=== PATIENT | male | born 1975 | race Caucasian/White ===

== ENCOUNTER 2023-10-22 23:23 | Inpatient (IN) | payer OTHER ==
[2023-10-23] MEDS ORDERED: ONDANSETRON 4 MG/2 ML VIAL IVP PRN (00:12)
[2023-10-23] MEDS ORDERED: NALOXONE 0.4 MG/ML 1 ML VIAL IV PRN (00:12)
--- NOTE | 2023-10-23 00:12 | ED ---
General Adult HPI - General Chief complaint: Abdominal Pain Stated complaint: Acute pancreatitis Time Seen by Provider: 10/22/23 23:25 Source: patient, EMS, RN notes reviewed, old records reviewed Mode of arrival: EMS - History of Present Illness Initial comments: Patient is a 48-year-old male who presents emergency department complaining of abdominal pain. Was transferred from [facility] for acute pancreatitis. Workup there included CT abdomen/pelvis which showed signs consistent with acute pancreatitis without any obvious complications. Patient had elevated amylase and lipase. Has a history of chronic alcohol abuse. Presents for further evaluation. Last alcoholic beverage was approximately 24 hours ago. Drinks daily. Endorses epigastric abdominal pain. Presents for further evaluation at this time. - Related Data Home Medications Medication Instructions Recorded Confirmed Folic Acid 1 mg PO DAILY 10/23/23 10/23/23 Metoprolol Succinate (ER) [Toprol 100 mg PO DAILY 10/23/23 10/23/23 Xl] Pregabalin [Lyrica] 75 mg PO BID 10/23/23 10/23/23 Rosuvastatin [Crestor] 10 mg PO DAILY 10/23/23 10/23/23 Sertraline HCl [Zoloft] 50 mg PO DAILY 10/23/23 10/23/23 Sertraline [Zoloft] 100 mg PO DAILY 10/23/23 10/23/23 Verapamil HCl [Calan Sr] 240 mg PO DAILY 10/23/23 10/23/23 Allergies Allergy/AdvReac Type Severity Reaction Status Date / Time No Known Allergies Allergy Verified 10/23/23 09:23 Review of Systems ROS Statement: Those systems with pertinent positive or pertinent negative responses have been documented in the HPI. Review of Systems: CONST: Denies fever EYES: Denies blurry vision ENT: Denies nasal congestion C/V: Denies Chest pain RESP: Denies shortness of breath GI: Endorses abdominal pain : Denies dysuria SKIN: Denies rash. MSK: Denies joint pain. NEURO: Denies headache ROS Other: All systems not noted in ROS Statement are negative. Past Medical History Past Medical History: Coronary Artery Disease (CAD), Hypertension History of Any Multi-Drug Resistant Organisms: None Reported Past Psychological History: Anxiety Smoking Status: Current every day smoker Past Alcohol Use History: Abuse Past Drug Use History: None Reported General Exam - General Exam Comments Initial Comments: General: Appears in mild alcohol withdrawals with mild tongue fasciculations and mild hand tremors. HEAD: Normal with no signs of head trauma. EYES: PERRLA, EOMI, conjunctiva normal, no discharge. ENT: Hearing grossly intact, normal oropharynx. RESPIRATORY: Clear breath sounds bilaterally. No wheezes, rales, or rhonchi. C/V: Mild tachycardia with regular rhythm.. S1 and S2 auscultated, no edema, peripheral pulses 2+ and intact throughout ABD: Mild tenderness to palpation in the epigastric region. Nondistended. Soft otherwise. No guarding. No rebound tenderness. No peritoneal signs. EXT: Normal range of motion, no obvious deformity SKIN: No rashes or lesions observed on exposed skin. NEURO: Alert and oriented x 4. No focal deficits. Course Vital Signs 10/22/23 10/23/23 10/23/23 23:29 00:41 01:00 Temperature 98.3 F Pulse Rate 101 H 98 102 H Pulse Rate [ Morning Show Producer ] Respiratory 18 18 18 Rate Blood Pressure 180/128 178/126 180/136 Blood Pressure [Left Arm] O2 Sat by Pulse 97 97 96 Oximetry 10/23/23 10/23/23 10/23/23 03:00 04:06 05:30 Temperature Pulse Rate 101 H 117 H 117 H Pulse Rate [ Morning Show Producer ] Respiratory 18 18 20 Rate Blood Pressure 159/113 149/113 160/116 Blood Pressure [Left Arm] O2 Sat by Pulse 97 96 97 Oximetry 10/23/23 10/23/23 10/23/23 06:50 15:32 18:31 Temperature Pulse Rate 110 H 106 H 125 H Pulse Rate [ Morning Show Producer ] Respiratory 18 18 24 Rate Blood Pressure 164/125 166/130 161/112 Blood Pressure [Left Arm] O2 Sat by Pulse 96 98 95 Oximetry 10/23/23 10/23/23 10/23/23 18:54 19:21 19:30 Temperature Pulse Rate 123 H 135 H 136 H Pulse Rate [ Morning Show Producer ] Respiratory 24 28 H 24 Rate Blood Pressure 181/124 194/124 204/135 Blood Pressure [Left Arm] O2 Sat by Pulse 99 100 100 Oximetry 10/23/23 10/23/23 10/23/23 19:50 20:25 20:30 Temperature Pulse Rate 133 H 105 H 102 H Pulse Rate [ Morning Show Producer ] Respiratory 28 H 22 20 Rate Blood Pressure 186/168 142/99 146/106 Blood Pressure [Left Arm] O2 Sat by Pulse 99 99 99 Oximetry 10/23/23 10/23/23 10/23/23 20:45 21:00 21:15 Temperature Pulse Rate 94 94 92 Pulse Rate [ Morning Show Producer ] Respiratory 22 20 20 Rate Blood Pressure 173/122 158/117 165/116 Blood Pressure [Left Arm] O2 Sat by Pulse 100 99 100 Oximetry 10/23/23 10/23/23 21:45 22:00 Temperature 98.7 F 98.7 F Pulse Rate Pulse Rate [ 95 Morning Show Producer ] Respiratory 10 L Rate Blood Pressure Blood Pressure 192/122 [Left Arm] O2 Sat by Pulse Oximetry Medical Decision Making - Medical Decision Making Was pt. sent in by a medical professional or institution (Dr. PA, SPECIAL AGENT, urgent care, hospital, or [facility]...) When possible be specific @ -Spoke with transferring physician from [facility] for evaluation by GI for acute pancreatitis Did you speak to anyone other than the patient for history (EMS, parent, family, police, friend...)? What history was obtained from this source @ -No Did you review nursing and triage notes (agree or disagree)? Why? @ -I reviewed and agree with nursing and triage notes Were old charts reviewed (outside hosp., previous admission, EMS record, old EKG, old radiological studies, urgent care reports/EKG's, [facility] records)? Report findings @ -Old charts reviewed Differential Diagnosis (chest pain, altered mental status, abdominal pain women, abdominal pain men, vaginal bleeding, weakness, fever, dyspnea, syncope, headache, dizziness, GI bleed, back pain, seizure, CVA, palpatations, mental health, musculoskeletal)? @ -Differential Abdominal Pain Men: Appendicitis, cholecystitis, diverticulosis, ischemic bowel, pancreatitis, hepatitis, UTI, gastroenteritis, AAA, incarcerated hernia, bowel obstruction, constipation, inflammatory bowel, hepatitis, peptic ulcer disease, splenic infarction, perforated viscus, testicular torsion, this is not meant to be an all-inclusive list EKG interpreted by me (3pts min.). @ -As above X-rays interpreted by me (1pt min.). @ -None done CT interpreted by me (1pt min.). @ -None done U/S interpreted by me (1pt. min.). @ -None done What testing was considered but not performed or refused? (CT, X-rays, U/S, labs)? Why? @ -None What meds were considered but not given or refused? Why? @ -None Did you discuss the management of the patient with other professionals (professionals i.e. , PA, SPECIAL AGENT, lab, RT, psych nurse, manager social media, criminal lawyer, teacher, business liaison officer, case worker)? Give summary @ -Spoke with Dr. Han of [facility] who accepted the admission. Was smoking cessation discussed for >3mins.? @ -No Was critical care preformed (if so, how long)? @ -No Were there social determinants of health that impacted care today? How? (Homelessness, low income, unemployed, alcoholism, drug addiction, transportation, low edu. Level, literacy, decrease access to med. care, shelter, rehab)? @ -No Was there de-escalation of care discussed even if they declined (Discuss DNR or withdrawal of care, Hospice)? DNR status @ -No What co-morbidities impacted this encounter? (DM, HTN, Smoking, COPD, CAD, Cancer, CVA, ARF, Chemo, Hep., AIDS, mental health diagnosis, sleep apnea, morbid obesity)? @ -None Was patient admitted / discharged? Hospital course, mention meds given and route, prescriptions, significant lab abnormalities, going to OR and other pertinent info. @ -Based on the patient's presentation and physical exam, patient presents emergency department complaining of abdominal pain. Diagnosed with acute pancreatitis on labs and CT at outside facility. We will repeat labs. CT uploaded. He also appears to be in mild alcohol withdrawals with CIWA of 4-7 on presentation. Patient will be given IV pain meds, IV fluids, as well as a dose of Ativan. Patient placed on CIWA protocol. He will be admitted to the hospital. Vital signs remarkable for mild tachycardia. I spoke with the admitting physician, Dr. Han who accepted the admission. Consult placed to Dr. Bui. Undiagnosed new problem with uncertain prognosis? @ -No Drug Therapy requiring intensive monitoring for toxicity (Heparin, Nitro, Insulin, Cardizem)? @ -No Were any procedures done? @ -No Diagnosis/symptom? @ -Acute pancreatitis, alcohol withdrawal Acute, or Chronic, or Acute on Chronic? @ -Acute Uncomplicated (without systemic symptoms) or Complicated (systemic symptoms)? @ -Complicated Side effects of treatment? @ -No Exacerbation, Progression, or Severe Exacerbation? @ -No Poses a threat to life or bodily function? How? (Chest pain, [place], [place], pneumonia, PE, COPD, DKA, ARF, appy, cholecystitis, CVA, Diverticulitis, Homicidal, Suicidal, threat to staff... and all critical care pts) @ -Yes - Lab Data Result diagrams: 10/25/23 06:12 10/25/23 06:12 Lab Results 10/23/23 Range/Units 00:00 WBC 7.6 (3.8-10.6) k/uL RBC 4.19 L (4.30-5.90) m/uL Hgb 13.9 (13.0-17.5) gm/dL Hct 42.0 (39.0-53.0) % MCV 100.2 H (80.0-100.0) fL MCH 33.0 (25.0-35.0) pg MCHC 33.0 (31.0-37.0) g/dL RDW 13.4 (11.5-15.5) % Plt Count 110 L (150-450) k/uL MPV 8.4 Neutrophils % 89 % Lymphocytes % 4 % Monocytes % 6 % Eosinophils % 1 % Basophils % 0 % Neutrophils # 6.7 (1.3-7.7) k/uL Lymphocytes # 0.3 L (1.0-4.8) k/uL Monocytes # 0.4 (0-1.0) k/uL Eosinophils # 0.1 (0-0.7) k/uL Basophils # 0.0 (0-0.2) k/uL - EKG Data -: EKG Interpreted by Me EKG Comments: 12-lead Electrocardiogram Interpretation Note EKG was reviewed and interpreted by myself. 12-lead ECG performed at 0034 is interpreted by me as revealing normal sinus rhythm at a rate of 99 beats per minute. [place] is normal. DE interval is 160 ms, QRS duration is 77 ms, QTc is 398 ms.. There were no ST or T wave abnormalities to suggest myocardial isc hemia or injury. R wave progression across the precordium was satisfactory. By my interpretation this EKG is non-diagnostic for acute ischemia. Disposition Clinical Impression: Pancreatitis, acute, Alcohol withdrawal Disposition: ADMITTED IP TO THIS HOSP Condition: Stable Time of Disposition: 00:10
[2023-10-23] MEDS: LORazepam 2 MG/ML INJ IV STA (01:02)
[2023-10-23] MEDS: HYDROmorphone 1 MG/ML 1 ML SYRINGE IVP PRN (01:04)
[2023-10-23] MEDS: SODIUM CHLORIDE 0.9% 1,000 ML IV STA (01:04)
[2023-10-23] MEDS: THIAMINE 100 MG/ML 2 ML VIAL IM STA (01:07)
[2023-10-23] MEDS: hydrALAZINE HCL 20 MG/ML 1 ML VIAL IVP STA (01:14)
[2023-10-23 01:28] LABS: Basophils % (A) 0 %; Eosinophils # (A) 0.1 k/uL (0-0.7); Eosinophils % (A) 1 %; HGB 13.9 gm/dL (13.0-17.5); Lymphocytes # (A) 0.3 k/uL (1.0-4.8); Lymphocytes % (A) 4 %; MCV 100.2 fL (80.0-100.0); Mean Platelet Volume 8.4; Monocytes # (A) 0.4 k/uL (0-1.0); Monocytes % (A) 6 %; Neutrophils # (A) 6.7 k/uL (1.3-7.7); Neutrophils % (A) 89 %; Platelet Count 110 k/uL (150-450); RBC 4.19 m/uL (4.30-5.90); RDW 13.4 % (11.5-15.5); WBC 7.6 k/uL (3.8-10.6)
[2023-10-23 01:46] LABS: ALT 74 U/L (4-49); AST 97 U/L (17-59); African American GFR (CKD) 89 (>60 ml/min/1.73 sqM); Albumin 3.7 g/dL (3.5-5.0); Alkaline Phosphatase 156 U/L (38-126); Anion Gap 11 mmol/L; Blood Urea Nitrogen 18 mg/dL (9-20); Calcium 8.5 mg/dL (8.4-10.2); Carbon Dioxide 19 mmol/L (22-30); Chloride 108 mmol/L (98-107); Glucose 94 mg/dL (74-99); Non-African American GFR(CKD) 77 (>60 ml/min/1.73 sqM); Potassium 4.4 mmol/L (3.5-5.1); Sodium 138 mmol/L (137-145); Total Protein 6.6 g/dL (6.3-8.2)
[2023-10-23] MEDS: LORazepam 2 MG/ML INJ IV PRN ×4 (03:07→17:56)
[2023-10-23 03:18] LABS: Amylase 1468 U/L (30-110)
[2023-10-23 03:20] LABS: Lipase 11329 U/L (23-300)
[2023-10-23] MEDS: HEPARIN SODIUM,PORCINE 5,000 UNIT/ML 1 ML VIAL SQ SCH (08:38)
[2023-10-23] MEDS: PANTOPRAZOLE 40 MG/10 ML VIAL IV SCH (08:38)
[2023-10-23] MEDS: lisinopriL 20 MG TAB PO SCH (08:39)
[2023-10-23] MEDS: METOPROLOL SUCCINATE (ER) 100 MG TAB.ER.24H PO SCH (08:41)
[2023-10-23] MEDS ORDERED: LORazepam 2 MG/ML INJ IM PRN (12:46)
[2023-10-23] MEDS: PANTOPRAZOLE 40 MG/10 ML VIAL IVP SCH (14:53)
[2023-10-23] MEDS: cloNIDine HCL 0.1 MG TAB PO SCH (14:54)
[2023-10-23] MEDS: NICOTINE 14MG/24HR PATCH TRANSDERM SCH (14:54)
[2023-10-23] MEDS: SODIUM CHLORIDE 0.9% 1,000 ML IV SCH (14:55)
[2023-10-23] MEDS: SERTRALINE 50 MG TAB PO SCH (14:57)
[2023-10-23] MEDS: HALOPERIDOL LACTATE 5 MG/ML 1 ML VIAL IVP PRN (16:57)
--- NOTE | 2023-10-23 17:24 | P.CONS ---
History of Present Illness - Reason for Consult Consult date: 10/23/23 Pancreatitis Requesting physician: Sterling Hickman - Chief Complaint Abdominal pain - History of Present Illness This is a 48-year-old male who was transferred from [facility] for alcohol intoxication and acute alcohol pancreatitis. Patient states abdominal pain started about 3 days ago. He was seen at [facility] and had a CT of the abdomen pelvis. It reported peripancreatic inflammatory stranding and fluid consistent with acute pancreatitis. No pseudocyst abscess or pancreatic necrosis. Decreased attenuation of the hepatic parenchyma noted, suggestive of fatty infiltration. He was also noted to have elevated amylase and lipase. Patient EtOH level was 34. He is seen and examined in the emergency department. He does appear to be intoxicated and is unsteady on his feet. He states he does have a history of alcoholism and he has been cutting back and drinks 2-3 tall boys a day. 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 States abdominal pain is improving. No nausea or vomiting currently. On today's labs it was noted amylase of 1468 and lipase 11,329. Gastroenterology was consulted for pancreatitis. WBC 7.6 hemoglobin 13.9 hematocrit 100 platelet count 110,000 sodium 138 potassium 4.4 BUN 18 creatinine 1.1 total bilirubin 1.0 AST 97 ALT 74 alkaline phosphatase 156 Review of Systems REVIEW OF SYSTEMS: CARDIOPULMONARY: No chest pain or shortness of breath. Gastrointestinal: Epigastric pain. No nausea or vomiting. No hematemesis, coffee-ground emesis. No rectal bleeding, or melena. GENITOURINARY: No dysuria or hematuria. MUSCULOSKELETAL: Reports normal range of motion. SKIN: No rashes. No jaundice. ENDOCRINE: No chills, fevers. No excessive weight gain or loss. No polydipsia or polyuria. PSYCHIATRIC: Alcohol intoxication. Alcohol abuse. NEUROLOGY: No change in mental status. Denies dizziness, headache. ENT: Vision unremarkable. CONSTITUTIONAL: No recent weight loss. No fever, chills, night sweats. Past Medical History Past Medical History: Coronary Artery Disease (CAD), Hypertension History of Any Multi-Drug Resistant Organisms: None Reported Past Psychological History: Anxiety Smoking Status: Current every day smoker Past Alcohol Use History: Abuse Past Drug Use History: None Reported Medications and Allergies Home Medications Medication Instructions Recorded Confirmed Type Folic Acid 1 mg PO DAILY 10/23/23 10/23/23 History Metoprolol Succinate (ER) [Toprol 100 mg PO DAILY 10/23/23 10/23/23 History Xl] Pregabalin [Lyrica] 75 mg PO BID 10/23/23 10/23/23 History Rosuvastatin [Crestor] 10 mg PO DAILY 10/23/23 10/23/23 History Sertraline HCl [Zoloft] 50 mg PO DAILY 10/23/23 10/23/23 History Sertraline [Zoloft] 100 mg PO DAILY 10/23/23 10/23/23 History Verapamil HCl [Calan Sr] 240 mg PO DAILY 10/23/23 10/23/23 History Allergies Allergy/AdvReac Type Severity Reaction Status Date / Time No Known Allergies Allergy Verified 10/23/23 09:23 Physical Exam Vitals: Vital Signs Temp Pulse Resp BP Pulse Ox 10/23/23 06:50 110 H 18 164/125 96 10/23/23 05:30 117 H 20 160/116 97 10/23/23 04:06 117 H 18 149/113 96 10/23/23 03:00 101 H 18 159/113 97 10/23/23 01:00 102 H 18 180/136 96 10/23/23 00:41 98 18 178/126 97 10/22/23 23:29 98.3 F 101 H 18 180/128 97 Intake and Output 10/22/23 10/23/23 10/23/23 22:59 06:59 14:59 Other: Weight 70.76 kg General appearance: The patient is alert, oriented, patient appears intoxicated. HET: Head is normocephalic and atraumatic. Conjunctiva pink. Sclera anicteric. Neck: Supple without lymphadenopathy. Trachea midline. Heart: Regular. Lungs: Equal expansion, normal respiratory effort. Abdomen: Soft, mild epigastric tenderness, nondistended with bowel sounds. No guarding or rigidity. Skin: No rashes. No jaundice. Extremities: Normal skin color and turgor. No pedal edema. Neurological: No focal deficits. Alert and oriented x3. Results CBC & Chem 7: 10/23/23 00:00 10/23/23 01:23 Labs: Abnormal Lab Results - Last 24 Hours (Table) 10/23/23 10/23/23 Range/Units 00:00 01:23 RBC 4.19 L (4.30-5.90) m/uL MCV 100.2 H (80.0-100.0) fL Plt Count 110 L (150-450) k/uL Lymphocytes # 0.3 L (1.0-4.8) k/uL Chloride 108 H (98-107) mmol/L Carbon Dioxide 19 L (22-30) mmol/L AST 97 H (17-59) U/L ALT 74 H (4-49) U/L Alkaline Phosphatase 156 H (38-126) U/L Amylase 1468 H* (30-110) U/L Lipase 96875 H (23-300) U/L Assessment and Plan (1) Alcoholic pancreatitis Narrative/Plan: . 48-year-old male transferred from outside facility for acute pancreatitis likely secondary to alcohol abuse. Patient has longstanding history of alcohol abuse drinks daily states he was drinking 14 beers a day for at least the past 10 years or more. States he has cut back to 2-3 tall boys a day. Patient was intoxicated this morning when interviewed. He states abdominal pain improving. No nausea or vomiting. He is on a clear liquid diet. Current Visit: Yes Status: Acute Code(s): K85.20 - ALCOHOL INDUCED ACUTE PANCREATITIS WITHOUT NECROSIS OR INFCT SNOMED Code(s): 298708434 (2) Alcohol abuse Current Visit: Yes Status: Acute Code(s): F10.10 - ALCOHOL ABUSE, UNCOMPLICATED SNOMED Code(s): 08365296 (3) Alcohol intoxication Current Visit: Yes Status: Acute Code(s): F10.929 - ALCOHOL USE, UNSPECIFIED WITH INTOXICATION, UNSPECIFIED SNOMED Code(s): 71476607 Plan: 1. Continue symptomatic and supportive care 2. Clear liquid diet 3. Aggressive IV hydration 4. Recommend alcohol abstinence. Importance of alcohol abstinence discussed with patient and effects of alcohol on overall health and continued pancreatitis. 5. Monitor for alcohol withdrawal 6. No further workup indicated at this time Thank you for this consultation, we will continue to follow. Dr. Mecca Bui I agree with the dictator's note, documented as a scribe by Awilda Fuentes.
[2023-10-23] MEDS: cloNIDine 0.2 MG/24HR PATCH TRANSDERM SCH (19:24)
[2023-10-23] MEDS: traZODone HCL 100 MG TAB PO ONE (19:27)
[2023-10-23] MEDS: DEXMEDETOMIDINE/0.9% NACL(PMX) 400 MCG in EMPTY BAG 1 BAG IV SCH (20:20)
[2023-10-23] MEDS ORDERED: traZODone HCL 100 MG TAB PO SCH (21:00)
[2023-10-23 21:41] LABS: Glucose,Whole Blood 94 mg/dL (70-110)
[2023-10-23] MEDS: PREGABALIN 75 MG CAP PO SCH (22:00)
[2023-10-23] MEDS: hydrALAZINE HCL 20 MG/ML 1 ML VIAL IVP PRN (23:46)
--- NOTE | 2023-10-23 23:48 | HP ---
HISTORY AND PHYSICAL CHIEF COMPLAINT: Abdominal pain. HISTORY OF PRESENT ILLNESS: This is a 48-year-old gentleman with a past medical history of multiple medical problems including alcoholism, was admitted with abdominal pain. The patient was transferred to [facility]. CT showed signs concerning for acute pancreatitis. The patient has elevated, amylase, and lipase. There is no history of any fever, rigors, or chills. The patient is also going through withdrawals at this time. Amylase is 1468 and lipase is 11,329. PAST MEDICAL HISTORY: Reviewed include EtOH, CAD, hypertension. HOME MEDICATIONS: Calan SR, dose and rest of medications reviewed. ALLERGIES: None. FAMILY HISTORY: No history of heart disease or strokes in the family. SOCIAL HISTORY: History of smoking and alcohol. REVIEW OF SYSTEMS: A 14-point review is negative except as mentioned earlier. PHYSICAL EXAMINATION: VITAL SIGNS: Pulse 110, blood pressure 160/110, respirations 18. HEENT: Conjunctivae normal. CARDIOVASCULAR: S1, S2. RESPIRATIONS: Diminished at the bases, few rhonchi, no crackles. ABDOMEN: Soft, tenderness in the epigastrium. No guarding, no rigidity. No masses. No scites. LEGS: No edema. NERVOUS SYSTEM: No focal deficits. SKIN: No rashes. LABORATORY DATA: Reviewed. ASSESSMENT: 1. Acute abdominal pain with acute history of pancreatitis, possibly alcoholic pancreatitis. 2. Severe alcoholism and acute delirium tremens. 3. CAD history. 4. Hypertension. 5. History of nicotine dependence. 6. Multiple complex medical issues. RECOMMENDATIONS AND DISCUSSION: This 48-year-old gentleman presented with multiple complex medical issues, we will monitor the patient closely. Continue the current medications. Gastroenterology has been consulted. I would recommend repeat labs, symptomatic treatment. CAT scan has been noted. Aggressive CIWA protocol. Otherwise, clonidine. Guarded prognosis because of multiple complex medical issues, further recommendations to follow, see orders for details. DVT prophylaxis. MMODL / IJN: [id number] /
--- NOTE | 2023-10-24 01:45 | P.CNPUL ---
History of Present Illness Consult date: 10/24/23 Requesting physician: Dre E Sheet Reason for consult: other (Acute pancreatitis; alcohol intoxication with impending alcohol withdrawal delirium tremens; ICU management) Chief complaint: Abdominal pain History of present illness: Patient is a 48-year-old white male with past medical history significant for hypertension, coronary artery disease, current everyday smoker, and alcohol abuse. He was transferred from [facility] 10/22/2023 for acute pancreatitis. He was noted to be intoxicated on arrival to outside facility, with an alcohol level of 34 mg/dL, while at our facility developed impending acute alcohol withdrawal delirium tremens. He required ICU admission for Preced ex infusion. Patient is currently lethargic and not a very good historian. After reviewing the medical records from the outside facility, it appears he presented with abdominal pain. He was also noted to have severely elevated lipase and amylase levels. An abdominal and pelvis CT was performed, which identified peripancreatic inflammatory stranding and fluid consistent with acute pancreatitis. No pseudocyst, abscess, or pancreatic necrosis. No gallstones or ductal dilation. There was decreased attenuation of the hepatic parenchyma, suggestive of fatty infiltration. Patient was dehdydrated and noted to have sustained an WILFRIDO. It appears he was fluid resuscitated with 2 L of crystalloid fluid. He was then transferred to [facility]. He was noted to be agitated and combative. He had received multiple doses of Ativan, I am told a total of 16 mg. He was also receiving Haldol. Despite this, he had sustained recorded CIWA scores greater than 28, and for this reason he was placed on a Precedex infusion and admitted to the intensive care unit. Most recent CBC from yesterday: WBC count 7.6, hemoglobin 13.9, hematocrit 42, platelets 110. Most recent CMP from yesterday: Sodium 138, potassium 4.4, chloride 108, serum bicarb 19, BUN 18, creatinine 1.13, glucose 94. AST 97, ALT 74, ALP 156, total bilirubin 1. Lipase 11,329 and amylase 1468. Patient is currently lethargic and not making much sense when talking. Unsure of when last drink was. Precedex is infusing at 0.4 mcg/kg/h. He does have bilateral upper extremity soft restraints on, which likely can be discontinued. Blood pressure is noted to be hypertensive, has received a clonidine 0.2 mg patch, which is fallen off and will be replaced. EKG shows normal sinus rhythm without any obvious acute ischemic changes. Patient's pain appears well-managed with current regimen of as needed Dilaudid. He does have some facial grimacing with palpation of the bilateral upper abdomen. Normal saline is infusing at 150 MLS per hour. Currently on room air, in no acute respiratory distress. Afebrile. He has been moved to room 262 in the intensive care unit. Review of Systems ROS unobtainable: due to mental status Past Medical History Past Medical History: Coronary Artery Disease (CAD), Hypertension History of Any Multi-Drug Resistant Organisms: None Reported Past Anesthesia/Blood Transfusion Reactions: Unable to Obtain Past Psychological History: Anxiety Smoking Status: Current every day smoker Past Alcohol Use History: Abuse, Heavy Past Drug Use History: None Reported Medications and Allergies Home Medications Medication Instructions Recorded Confirmed Type Folic Acid 1 mg PO DAILY 10/23/23 10/23/23 History Metoprolol Succinate (ER) [Toprol 100 mg PO DAILY 10/23/23 10/23/23 History Xl] Pregabalin [Lyrica] 75 mg PO BID 10/23/23 10/23/23 History Rosuvastatin [Crestor] 10 mg PO DAILY 10/23/23 10/23/23 History Sertraline HCl [Zoloft] 50 mg PO DAILY 10/23/23 10/23/23 History Sertraline [Zoloft] 100 mg PO DAILY 10/23/23 10/23/23 History Verapamil HCl [Calan Sr] 240 mg PO DAILY 10/23/23 10/23/23 History Allergies Allergy/AdvReac Type Severity Reaction Status Date / Time No Known Allergies Allergy Verified 10/23/23 09:23 Physical Exam Vitals: Vital Signs Temp Pulse Pulse Resp BP BP Pulse Ox 10/24/23 00:00 98.5 F 92 15 166/121 94 L 10/23/23 23:43 89 12 94 L 10/23/23 23:30 86 15 183/123 99 10/23/23 22:00 98.7 F 10/23/23 21:45 98.7 F 95 10 L 192/122 10/23/23 21:15 92 20 165/116 100 10/23/23 21:00 94 20 158/117 99 10/23/23 20:45 94 22 173/122 100 10/23/23 20:30 102 H 20 146/106 99 10/23/23 20:25 105 H 22 142/99 99 10/23/23 19:50 133 H 28 H 186/168 99 10/23/23 19:30 136 H 24 204/135 100 10/23/23 19:21 135 H 28 H 194/124 100 10/23/23 18:54 123 H 24 181/124 99 10/23/23 18:31 125 H 24 161/112 95 10/23/23 15:32 106 H 18 166/130 98 10/23/23 06:50 110 H 18 164/125 96 10/23/23 05:30 117 H 20 160/116 97 10/23/23 04:06 117 H 18 149/113 96 10/23/23 03:00 101 H 18 159/113 97 10/23/23 01:00 102 H 18 180/136 96 Intake and Output 10/23/23 10/23/23 10/24/23 14:59 22:59 06:59 Intake Total 4.039 325.238 Balance 4.039 325.238 Intake: IV 300 Sodium Chloride 0.9% 1, 300 000 ml @ 150 mls/hr IV . Q6H40M [facility] Rx#:[id number] Intake, IV Titration 4.039 25.238 Amount Dexmedetomidine/0.9% NaCl 4.039 25.238 (Pmx) 400 mcg In Empty Bag 1 bag @ 0.2 MCG/KG/HR 3.538 mls/hr IV .Q24H [facility] Rx#:[id number] Other: Voiding Method Diaper # Voids 1 Weight 70.76 kg GENERAL EXAM: Lethargic and delirious, 48-year-old white male, disheveled appearance. HEAD: Normocephalic and atraumatic EYES: Normal reaction of pupils, equal size. NOSE: Clear with pink turbinates. THROAT: No erythema or exudates. NECK: No masses, no JVD. CHEST: No chest wall deformity. LUNGS: Equal air entry with no crackles, wheeze, rhonchi or dullness. Sonorous. On room air. SpO2 is 99%. No conversational dyspnea or accessory muscle use.. CVS: S1 and S2 normal with no audible murmur, regular rhythm. No extra heart sounds ABDOMEN: Abdomen is flat and taut, no periumbilical or flank bruising, facial grimacing with palpation of the superior abdomen bilaterally, no hepatosplenomegaly, active bowel sounds, SPINE: No scoliosis or deformity SKIN: No rashes CENTRAL NERVOUS SYSTEM: Neuroexam is limited by sedation. Will not follow commands at this time. No obvious facial asymmetry. He moves all 4 extremities equally. No resting tremors. He is diaphoretic. No longer appears restless. Precedex is infusing as reported. EXTREMITIES: There is no peripheral edema, clubbing, or cyanosis. Peripheral pulses are intact. Results - Laboratory Findings CBC and BMP: 10/23/23 00:00 10/23/23 01:23 Abnormal lab findings: Abnormal Labs 10/23/23 10/23/23 00:00 01:23 RBC 4.19 L MCV 100.2 H Plt Count 110 L Lymphocytes # 0.3 L Chloride 108 H Carbon Dioxide 19 L AST 97 H ALT 74 H Alkaline Phosphatase 156 H Amylase 1468 H* Lipase 38436 H Assessment and Plan Assessment: Acute pancreatitis, likely alcohol induced, An abdominal and pelvis CT was performed at the outside facility, which identified peripancreatic inflammatory stranding and fluid consistent with acute pancreatitis. No pseudocyst, abscess, or pancreatic necrosis. No gallstones or ductal dilation. There was decreased attenuation of the hepatic parenchyma, suggestive of fatty infiltration. Total bilirubin 1. Lipase and amylase levels 11,329 and 1468 respectively. Alcohol intoxication, with impending acute alcohol withdrawal delirium tremens, serum EtOH level was 34 mg/dL at [facility] Hypertensive urgency, patient has started on a combination of as needed antihypertensives, and home antihypertensive medications have been resumed Abdominal pain, secondary to acute pancreatitis Acute kidney injury, likely secondary to above and severe dehydration, improving History of alcoholism, unsure of last alcohol consumption Mild transaminitis, secondary to above History of coronary artery disease Current everyday smoker Plan: Patient's medications, labs, outside facility reports were reviewed. Patient is admitted to the intensive care unit for acute alcohol withdrawal delirium tremens and Precedex infusion. He has received a total of 16 mg of IV Ativan and as needed Haldol, despite this, he was having severely elevated CIWA scores. Continue CIWA protocol. Reassess need for restraints and discontinue per protocol Continue with IV hydration Continue as needed analgesics As needed Zofran for nausea and vomiting, however, no nausea vomiting reported. GI has been asked to see this patient. Clear liquid diet as tolerated Trend pancreatic enzymes. Check triglyceride levels. Home antihypertensive medications have been resumed as well as as needed hydralazine and clonidine 0.2 mg patch q. 7 days Heparin for DVT prophylaxis and Protonix for GI prophylaxis. Patient will be monitored in the intensive care unit. Prognosis is guarded. I have personally seen and examined the patient, performed the documentation and the assessment and plan as written. Number of minutes spent on the visit:20 . Time with Patient: Greater than 30
[2023-10-24 07:12] LABS: Basophils % (A) 0 %; Eosinophils # (A) 0.1 k/uL (0-0.7); Eosinophils % (A) 1 %; HGB 12.3 gm/dL (13.0-17.5); Hypochromasia Slight; Lymphocytes # (A) 0.7 k/uL (1.0-4.8); Lymphocytes % (A) 11 %; MCH 32.4 pg (25.0-35.0); MCHC 30.8 g/dL (31.0-37.0); Macrocytosis Moderate; Mean Platelet Volume 8.9; Monocytes # (A) 0.4 k/uL (0-1.0); Monocytes % (A) 7 %; Neutrophils # (A) 5.2 k/uL (1.3-7.7); Neutrophils % (A) 80 %; RBC 3.81 m/uL (4.30-5.90); RDW 13.9 % (11.5-15.5); WBC 6.5 k/uL (3.8-10.6)
[2023-10-24 07:30] LABS: ALT 42 U/L (4-49); AST 53 U/L (17-59); African American GFR (CKD) >90 (>60 ml/min/1.73 sqM); Albumin 3.1 g/dL (3.5-5.0); Alkaline Phosphatase 112 U/L (38-126); Anion Gap 8 mmol/L; Blood Urea Nitrogen 20 mg/dL (9-20); Calcium 8.3 mg/dL (8.4-10.2); Carbon Dioxide 19 mmol/L (22-30); Chloride 110 mmol/L (98-107); Glucose 60 mg/dL (74-99); Lipase 1668 U/L (23-300); Non-African American GFR(CKD) >90 (>60 ml/min/1.73 sqM); Potassium 3.6 mmol/L (3.5-5.1); Sodium 137 mmol/L (137-145); Total Bilirubin 1.3 mg/dL (0.2-1.3); Total Protein 5.6 g/dL (6.3-8.2)
[2023-10-24 07:37] LABS: Amylase 598 U/L (30-110)
[2023-10-24] MEDS: FOLIC ACID 1 MG TAB PO SCH (08:25)
[2023-10-24] MEDS: THIAMINE 100 MG TAB PO SCH (08:25)
[2023-10-24] MEDS: VERAPAMIL SR 240 MG TABLET.ER PO SCH (09:01)
[2023-10-24] MEDS: POTASSIUM CHLORIDE 20 MEQ in WATER FOR INJECTION 1 100ML.BAG IVPB STA (09:02)
[2023-10-24 09:46] LABS: Platelet Count 45 k/uL (150-450)
[2023-10-24] MEDS: HALOPERIDOL LACTATE 5 MG/ML 1 ML VIAL IM PRN (13:16)
--- NOTE | 2023-10-24 13:24 | P.PN ---
Subjective Progress Note Date: 10/24/23 Principal diagnosis: Pancreatitis This is a 48-year-old male who was transferred from [facility] for alcohol intoxication and acute alcohol pancreatitis. Patient states abdominal pain started about 3 days ago. He was seen at [facility] and had a CT of the abdomen pelvis. It reported peripancreatic inflammatory stranding and fluid consistent with acute pancreatitis. No pseudocyst abscess or pancreatic necrosis. Decreased attenuation of the hepatic parenchyma noted, suggestive of fatty infiltration. He was also noted to have elevated amylase and lipase. Patient EtOH level was 34. He is seen and examined in the emergency department. He does appear to be intoxicated and is unsteady on his feet. He states he does have a history of alcoholism and he has been cutting back and drinks 2-3 tall boys a day. 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 States abdominal pain is improving. No nausea or vomiting currently. On today's labs it was noted amylase of 1468 and lipase 11,329. Gastroenterology was consulted for pancreatitis. WBC 7.6 hemoglobin 13.9 hematocrit 100 platelet count 110,000 sodium 138 potassium 4.4 BUN 18 creatinine 1.1 total bilirubin 1.0 AST 97 ALT 74 alkaline phosphatase 156 10/24/2023 Patient seen and examined in the ICU. Patient is pretty sedated at this time and was just given Ativan. Patient was transferred to the ICU yesterday for alcohol withdrawals and delirium. Patient is currently in 2 point soft restraints. He is arousable to stimuli. Abdomen is soft and nondistended. Total bilirubin 1.3 AST 53 ALT 42 alkaline phosphatase 112 amylase is down to 598 from 1468 lipase 1668 down from 11,329 Objective - Vital Signs Vital signs: Vital Signs Temp 99.4 F 10/24/23 08:00 Pulse 98 10/24/23 10:00 Resp 25 H 10/24/23 10:00 BP 127/98 10/24/23 10:00 Pulse Ox 96 10/24/23 10:00 FiO2 Intake & Output 10/23/23 10/24/23 10/24/23 18:59 06:59 18:59 Intake Total 1156.254 400 Output Total 500 0 Balance 656.254 400 Weight 72.62 kg Intake: IV 1100 300 Sodium Chloride 0.9% 1, 1100 300 000 ml @ 100 mls/hr IV . Q10H [facility] Rx#:[id number] Intake, IV Titration 56.254 100 Amount Dexmedetomidine/0.9% NaCl 56.254 (Pmx) 400 mcg In Empty Bag 1 bag @ 0.2 MCG/KG/HR 3.538 mls/hr IV .Q24H [facility] Rx#:[id number] Potassium Chloride 20 meq 100 In Water For Injection 1 100ml.bag @ 50 mls/hr IVPB ONCE STA Rx#: [id number] Output: Urine 500 0 Other: Voiding Method Diaper External Catheter # Voids 1 1 - Exam General appearance: The patient is asleep, arousable to stimuli. In 2 point soft wrist restraints. Appears in no acute distress. HET: Head is normocephalic and atraumatic. Conjunctiva pink. Sclera anicteric. Neck: Supple without lymphadenopathy. Abdomen: Soft, nontender, nondistended. Extremities: Normal skin color and turgor. No pedal edema Skin: No rashes, no jaundice Neurological: Patient is currently sedated, sleeping. Arousable with stimuli. - Labs CBC & Chem 7: 10/24/23 06:13 10/24/23 06:13 Labs: Abnormal Lab Results - Last 24 Hours (Table) 10/24/23 10/24/23 Range/Units 06:13 06:13 RBC 3.81 L (4.30-5.90) m/uL Hgb 12.3 L (13.0-17.5) gm/dL MCV 105.0 H (80.0-100.0) fL MCHC 30.8 L (31.0-37.0) g/dL Plt Count 45 L D (150-450) k/uL Lymphocytes # 0.7 L (1.0-4.8) k/uL Chloride 110 H (98-107) mmol/L Carbon Dioxide 19 L (22-30) mmol/L Glucose 60 L (74-99) mg/dL Calcium 8.3 L (8.4-10.2) mg/dL Total Protein 5.6 L (6.3-8.2) g/dL Albumin 3.1 L (3.5-5.0) g/dL Amylase 598 H* (30-110) U/L Lipase 1668 H (23-300) U/L Assessment and Plan (1) Alcoholic pancreatitis Narrative/Plan: . 48-year-old male transferred from outside facility for acute pancreatitis likely secondary to alcohol abuse. Patient has longstanding history of alcohol abuse drinks daily states he was drinking 14 beers a day for at least the past 10 years or more. States he has cut back to 2-3 tall boys a day. Patient was intoxicated this morning when interviewed. He states abdominal pain improving. No nausea or vomiting. He is on a clear liquid diet. Current Visit: Yes Status: Acute Code(s): K85.20 - ALCOHOL INDUCED ACUTE PANCREATITIS WITHOUT NECROSIS OR INFCT SNOMED Code(s): 600796351 (2) Alcohol abuse Current Visit: Yes Status: Acute Code(s): F10.10 - ALCOHOL ABUSE, UNCOMP LICATED SNOMED Code(s): 73081463 (3) Alcohol intoxication Current Visit: Yes Status: Acute Code(s): F10.929 - ALCOHOL USE, UNSPECIFIED WITH INTOXICATION, UNSPECIFIED SNOMED Code(s): 03321648 (4) Alcohol withdrawal Current Visit: Yes Status: Acute Code(s): F10.939 - ALCOHOL USE, UNSPECIFIED WITH WITHDRAWAL, UNSPECIFIED SNOMED Code(s): 027928699 Plan: 1. Continue symptomatic and supportive care 2. Advance to full liquid diet, then advance as tolerated 3. Aggressive IV hydration 4. Recommend alcohol abstinence. Importance of alcohol abstinence discussed with patient and effects of alcohol on overall health and continued pancreatitis. 5. Continue with CIWA protocol 6. No further workup for pancreatitis from gastroenterology 7. Continue rest of medical management per primary medical team and ICU team Thank you for this consultation, we will continue to follow. Dr. Mecca Bui I agree with the dictator's note, documented as a scribe by Awilda Fuentes.
--- NOTE | 2023-10-24 15:12 | XR ---
EXAMINATION TYPE: XR chest 1V portable DATE OF EXAM: 10/24/2023 2:42 PM CLINICAL INDICATION:Male, 48 years old with history of chf; COMPARISON: Chest radiographs from 03/18/2022 TECHNIQUE: XR chest 1V portable Frontal view of the chest. FINDINGS: Lungs/Pleura: There is no evidence of pleural effusion, focal consolidation, or pneumothorax. Pulmonary vascularity: Pulmonary vascular congestion. Heart/mediastinum: Cardiomediastinal silhouette is enlarged and stable. Musculoskeletal: No acute osseous pathology. IMPRESSION: Cardiomegaly and mild pulmonary vascular congestion. Correlate with BNP for congestive heart failure.
[2023-10-24 15:21] LABS: Appearance,Urine Clear (Clear); Bilirubin,Urine Negative (Negative); Blood,Urine Moderate (Negative); Color,Urine Yellow; Glucose,Urine (UA) Negative (Negative); Ketones,Urine 1+ (Negative); Leukocyte Esterase,Urine Moderate (Negative); Mucus,Urine Rare /hpf; Nitrite,Urine Negative (Negative); Protein,Urine 2+ (Negative); RBC,Urine 175 /hpf (0-5); Specific Gravity,Urine 1.019 (1.001-1.035); Urobilinogen,Urine <2.0 mg/dL (<2.0); WBC,Urine 49 /hpf (0-5)
[2023-10-24 15:25] LABS: Amphetamine Screen,Urine Not Detected (NotDetected); Cocaine Screen,Urine Not Detected (NotDetected); Opiate Screen,Urine Detected (NotDetected); Phencyclidine Screen,Urine Not Detected (NotDetected); Urn Cannabinoid Scrn Not Detected (NotDetected)
[2023-10-24 15:26] LABS: Barbiturate Screen,Urine Not Detected (NotDetected); Benzodiazepines Screen,Urine Detected (NotDetected); Methadone Screen, Urine Not Detected (NotDetected); Oxycodone Screen, Urine Not Detected (NotDetected); Tricyclic Antidepressant,Urine Not Detected (NotDetected)
[2023-10-24] MEDS: cloNIDine HCL 0.1 MG TAB PO PRN (16:27)
[2023-10-24] MEDS: CLEVIDIPINE BUTYRATE 25 MG in EMPTY BAG 1 BAG IV SCH (18:04)
--- NOTE | 2023-10-24 23:00 | PN ---
PROGRESS NOTE DATE OF SERVICE: 10/24/2023 SUBJECTIVE: This is a 48-year-old gentleman with significant history of alcohol intake, was admitted with acute pancreatitis. The patient has severe withdrawals and acute DTs. The patient has to be monitored in ICU. The patient is on IV Precedex drip with Valium overlay. The patient is confused and agitated and rolling over in the bed at this time. Amylase is 598 and lipase is 1668 showing a slight improvement. PAST MEDICAL HISTORY: Reviewed. REVIEW OF SYSTEMS: Could not be taken. CURRENT MEDICATIONS: Reviewed include Dexmedetomidine, rest of the medications and chart is also reviewed. PHYSICAL EXAMINATION: VITAL SIGNS: Pulse is 98, blood pressure 140/108, respirations 25. HEENT: Conjunctivae normal. NECK: No jugular venous distention. CARDIOVASCULAR: S1, S2. RESPIRATIONS: Diminished at the bases, scattered rhonchi and crackles. ABDOMEN: Soft. No guarding, no rigidity. LEGS: No edema. NERVOUS SYSTEM: Diffusely weak and tremors and agitated. LABORATORY DATA: Reviewed. ASSESSMENT: 1. Acute alcohol withdrawal with acute severe delirium tremens. 2. Acute abdominal pain with alcoholic pancreatitis. 3. CAD history. 4. Hypertension. 5. History of nicotine dependence. 6. Multiple complex medical issues. RECOMMENDATIONS: Recommended to continue current medications, continue symptomatic treatment. Otherwise, I would recommend a portable chest x-ray to rule out the possibility of any acute pulmonary conditions. Otherwise, closely follow with Pulmonary and GI. Continue with Precedex drip, p.r.n. Haldol. Repeat labs. Overall prognosis extremely guarded because of multiple complex medical issues. Further recommendations to follow. The patient is on IV fluids also. DVT prophylaxis. MMODL / IJN: [id number] /
--- NOTE | 2023-10-24 23:06 | XR ---
EXAM: XR Chest, 1 View CLINICAL HISTORY: ITS.REASON XR Reason: aspiration TECHNIQUE: Frontal view of the chest. COMPARISON: No relevant prior studies available. FINDINGS: Lungs: Pulmonary vascular congestion. No consolidation. Pleural space: Unremarkable. No pneumothorax. Heart: Cardiomegaly. Mediastinum: Unremarkable. Normal mediastinal contour. Bones/joints: Unremarkable. No acute fracture. IMPRESSION: Pulmonary vascular congestion.
[2023-10-25 07:00] LABS: Basophils % (A) 0 %; Eosinophils # (A) 0.1 k/uL (0-0.7); Eosinophils % (A) 1 %; HCT 35.6 % (39.0-53.0); HGB 11.3 gm/dL (13.0-17.5); Lymphocytes # (A) 0.5 k/uL (1.0-4.8); Lymphocytes % (A) 7 %; MCH 32.9 pg (25.0-35.0); MCHC 31.7 g/dL (31.0-37.0); MCV 103.7 fL (80.0-100.0); Macrocytosis Slight; Mean Platelet Volume 10.5; Monocytes # (A) 0.7 k/uL (0-1.0); Monocytes % (A) 9 %; Neutrophils # (A) 6.4 k/uL (1.3-7.7); Neutrophils % (A) 81 %; RBC 3.43 m/uL (4.30-5.90); RDW 14.4 % (11.5-15.5); WBC 7.8 k/uL (3.8-10.6)
[2023-10-25 07:10] LABS: Platelet Count 50 k/uL (150-450)
[2023-10-25 07:18] LABS: ALT 31 U/L (4-49); AST 41 U/L (17-59); African American GFR (CKD) >90 (>60 ml/min/1.73 sqM); Albumin 2.8 g/dL (3.5-5.0); Alkaline Phosphatase 113 U/L (38-126); Amylase 112 U/L (30-110); Anion Gap 11 mmol/L; Blood Urea Nitrogen 17 mg/dL (9-20); Calcium 8.2 mg/dL (8.4-10.2); Carbon Dioxide 15 mmol/L (22-30); Chloride 109 mmol/L (98-107); Glucose 68 mg/dL (74-99); Non-African American GFR(CKD) >90 (>60 ml/min/1.73 sqM); Potassium 3.7 mmol/L (3.5-5.1); Sodium 135 mmol/L (137-145); Total Bilirubin 1.6 mg/dL (0.2-1.3); Total Protein 5.4 g/dL (6.3-8.2)
[2023-10-25 07:20] LABS: Lipase 164 U/L (23-300)
[2023-10-25] MEDS: POTASSIUM CHLORIDE 20 MEQ in WATER FOR INJECTION 1 100ML.BAG IVPB STA (08:24)
[2023-10-25] MEDS ORDERED: HALOPERIDOL LACTATE 5 MG/ML 1 ML VIAL IM PRN (09:18)
[2023-10-25] MEDS ORDERED: HALOPERIDOL LACTATE 5 MG/ML 1 ML VIAL IVP PRN (09:18)
[2023-10-25] MEDS: QUEtiapine 50 MG TAB PO SCH (09:41)
[2023-10-25] MEDS: HALOPERIDOL LACTATE 5 MG/ML 1 ML VIAL IVP PRN (10:01)
--- NOTE | 2023-10-25 12:44 | P.PN ---
Subjective Progress Note Date: 10/25/23 Principal diagnosis: Pancreatitis This is a 48-year-old male who was transferred from [facility] for alcohol intoxication and acute alcohol pancreatitis. Patient states abdominal pain started about 3 days ago. He was seen at [facility] and had a CT of the abdomen pelvis. It reported peripancreatic inflammatory stranding and fluid consistent with acute pancreatitis. No pseudocyst abscess or pancreatic necrosis. Decreased attenuation of the hepatic parenchyma noted, suggestive of fatty infiltration. He was also noted to have elevated amylase and lipase. Patient EtOH level was 34. He is seen and examined in the emergency department. He does appear to be intoxicated and is unsteady on his feet. He states he does have a history of alcoholism and he has been cutting back and drinks 2-3 tall boys a day. 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 States abdominal pain is improving. No nausea or vomiting currently. On today's labs it was noted amylase of 1468 and lipase 11,329. Gastroenterology was consulted for pancreatitis. WBC 7.6 hemoglobin 13.9 hematocrit 100 platelet count 110,000 sodium 138 potassium 4.4 BUN 18 creatinine 1.1 total bilirubin 1.0 AST 97 ALT 74 alkaline phosphatase 156 10/24/2023 Patient seen and examined in the ICU. Patient is pretty sedated at this time and was just given Ativan. Patient was transferred to the ICU yesterday for alcohol withdrawals and delirium. Patient is currently in 2 point soft restraints. He is arousable to stimuli. Abdomen is soft and nondistended. Total bilirubin 1.3 AST 53 ALT 42 alkaline phosphatase 112 amylase is down to 598 from 1468 lipase 1668 down from 11,329 10/25/2023 Patient seen and examined in the ICU. Patient is still actively going through withdrawal symptoms. He remains on Precedex. He remains in 2 point soft wrist restraints. He denies any abdominal pain, no nausea or vomiting. Total bilirubin 1.6 AST 41 ALT 31 alkaline phosphatase 113 amylase 112 lipase 164. Objective - Vital Signs Vital signs: Vital Signs Temp 98.2 F 10/25/23 05:00 Pulse 84 10/25/23 07:00 Resp 22 10/25/23 07:00 BP 141/101 10/25/23 07:00 Pulse Ox 98 10/25/23 07:00 FiO2 Intake & Output 10/24/23 10/25/23 10/25/23 18:59 06:59 18:59 Intake Total 7864.674 7777.938 100 Output Total 1675 1595 75 Balance -371.043 -193.062 25 Weight 70.5 kg Intake: IV 1100 1200 100 Sodium Chloride 0.9% 1, 1100 1200 100 000 ml @ 100 mls/hr IV . Q10H [facility] Rx#:[id number] Intake, IV Titration 203.957 201.938 Amount Clevidipine Butyrate 25 1.067 71.267 mg In Empty Bag 1 bag @ 2 MG/HR 4 mls/hr IV . [id number] [facility] Rx#:[id number] Dexmedetomidine/0.9% NaCl 102.890 130.671 (Pmx) 400 mcg In Empty Bag 1 bag @ 0.2 MCG/KG/HR 3.538 mls/hr IV .Q24H [facility] Rx#:[id number] Potassium Chloride 20 meq 100 In Water For Injection 1 100ml.bag @ 50 mls/hr IVPB ONCE [facility] Rx#: [id number] Output: Urine 1675 1575 75 Emesis 20 Other: Voiding Method External Catheter Indwelling Catheter # Voids 1 # Bowel Movements 0 - Exam General appearance: The patient is alert. In 2 point soft wrist restraints. Appears in no acute distress. HET: Head is normocephalic and atraumatic. Conjunctiva pink. Sclera anicteric. Neck: Supple without lymphadenopathy. Abdomen: Soft, nontender, nondistended. Extremities: Normal skin color and turgor. No pedal edema Skin: No rashes, no jaundice Neurological: Patient is alert, but drowsy. - Labs CBC & Chem 7: 10/25/23 06:12 10/25/23 06:12 Labs: Abnormal Lab Results - Last 24 Hours (Table) 10/24/23 10/24/23 10/25/23 Range/Units 06:13 14:47 06:12 RBC 3.81 L 3.43 L (4.30-5.90) m/uL Hgb 12.3 L 11.3 L (13.0-17.5) gm/dL Hct 35.6 L (39.0-53.0) % MCV 105.0 H 103.7 H (80.0-100.0) fL MCHC 30.8 L (31.0-37.0) g/dL Plt Count 45 L D 50 L (150-450) k/uL Lymphocytes # 0.7 L 0.5 L (1.0-4.8) k/uL Sodium (137-145) mmol/L Chloride (98-107) mmol/L Carbon Dioxide (22-30) mmol/L Glucose (74-99) mg/dL Calcium (8.4-10.2) mg/dL Total Bilirubin (0.2-1.3) mg/dL Total Protein (6.3-8.2) g/dL Albumin (3.5-5.0) g/dL Amylase (30-110) U/L Urine Protein 2+ H (Negative) Urine Ketones 1+ H (Negative) Urine Blood Moderate H (Negative) Ur Leukocyte Esterase Moderate H (Negative) Urine RBC 175 H (0-5) /hpf Urine WBC 49 H (0-5) /hpf Urine Mucus Rare H (None) /hpf Urine Opiates Screen Detected H (NotDetected) U Benzodiazepines Scrn Detected H (NotDetected) 10/25/23 Range/Units 06:12 RBC (4.30-5.90) m/uL Hgb (13.0-17.5) gm/dL Hct (39.0-53.0) % MCV (80.0-100.0) fL MCHC (31.0-37.0) g/dL Plt Count (150-450) k/uL Lymphocytes # (1.0-4.8) k/uL Sodium 135 L (137-145) mmol/L Chloride 109 H (98-107) mmol/L Carbon Dioxide 15 L (22-30) mmol/L Glucose 68 L (74-99) mg/dL Calcium 8.2 L (8.4-10.2) mg/dL Total Bilirubin 1.6 H (0.2-1.3) mg/dL Total Protein 5.4 L (6.3-8.2) g/dL Albumin 2.8 L (3.5-5.0) g/dL Amylase 112 H (30-110) U/L Urine Protein (Negative) Urine Ketones (Negative) Urine Blood (Negative) Ur Leukocyte Esterase (Negative) Urine RBC (0-5) /hpf Urine WBC (0-5) /hpf Urine Mucus (None) /hpf Urine Opiates Screen (NotDetected) U Benzodiazepines Scrn (NotDetected) Assessment and Plan (1) Alcoholic pancreatitis Narrative/Plan: . 48-year-old male transferred from outside facility for acute pancreatitis likely secondary to alcohol abuse. Patient has longstanding history of alcohol abuse drinks daily states he was drinking 14 beers a day for at least the past 10 years or more. States he has cut back to 2-3 tall boys a day. Patient was intoxicated this morning when interviewed. He states abdominal pain improving. No nausea or vomiting. He is on a clear liquid diet. Current Visit: Yes Status: Acute Code(s): K85.20 - ALCOHOL INDUCED ACUTE PANCREATITIS WITHOUT NECROSIS OR INFCT SNOMED Code(s): 319166648 (2) Alcohol abuse Current Visit: Yes Status: Acute Code(s): F10.10 - ALCOHOL ABUSE, UNCOMPLICATED SNOMED Code(s): 41331186 (3) Alcohol intoxication Current Visit: Yes Status: Acute Code(s): F10.929 - ALCOHOL USE, UNSPECIFIED WITH INTOXICATION, UNSPECIFIED SNOMED Code(s): 36232417 (4) Alcohol withdrawal Current Visit: Yes Status: Acute Code(s): F10.939 - ALCOHOL USE, UNSPECIFIED WITH WITHDRAWAL, UNSPECIFIED SNOMED Code(s): 637520233 Plan: 1. Continue symptomatic and supportive care 2. Advance to low-fat diet 3. Repeat CMP tomorrow 4. Recommend alcohol abstinence. Importance of alcohol abstinence discussed with patient and effects of alcohol on overall health and continued pancreatitis. 5. Continue with CIWA protocol 6. No further workup for pancreatitis from gastroenterology 7. Continue rest of medical management per primary medical team and ICU team Thank you for this consultation, we will continue to follow. Dr. Mecca Bui I agree with the dictator's note, documented as a scribe by Awilda Fuentes.
[2023-10-25] MEDS: HALOPERIDOL LACTATE 5 MG/ML 1 ML VIAL IM PRN (12:54)
--- NOTE | 2023-10-25 13:15 | P.PN ---
Subjective Progress Note Date: 10/25/23 Principal diagnosis: Acute alcohol withdrawal Patient is a 48-year-old white male with past medical history significant for hypertension, coronary artery disease, current everyday smoker, and alcohol abuse. He was transferred from [facility] 10/22/2023 for acute panc reatitis. He was noted to be intoxicated on arrival to outside facility, with an alcohol level of 34 mg/dL, while at our facility developed impending acute alcohol withdrawal delirium tremens. He required ICU admission for Precedex infusion. Patient is currently lethargic and not a very good historian. After reviewing the medical records from the outside facility, it appears he presented with abdominal pain. He was also noted to have severely elevated lipase and amylase levels. An abdominal and pelvis CT was performed, which identified peripancreatic inflammatory stranding and fluid consistent with acute pancreatitis. No pseudocyst, abscess, or pancreatic necrosis. No gallstones or ductal dilation. There was decreased attenuation of the hepatic parenchyma, suggestive of fatty infiltration. Patient was dehdydrated and noted to have sustained an WILFRIDO. It appears he was fluid resuscitated with 2 L of crystalloid fluid. He was then transferred to [facility]. He was noted to be agitated and combative. He had received multiple doses of Ativan, I am told a total of 16 mg. He was also receiving Haldol. Despite this, he had sustained recorded CIWA scores greater than 28, and for this reason he was placed on a Precedex infusion and admitted to the intensive care unit. Most recent CBC from yesterday: WBC count 7.6, hemoglobin 13.9, hematocrit 42, platelets 110. Most recent CMP from yesterday: Sodium 138, potassium 4.4, chloride 108, serum bicarb 19, BUN 18, creatinine 1.13, glucose 94. AST 97, ALT 74, ALP 156, total bilirubin 1. Lipase 11,329 and amylase 1468. Patient is currently lethargic and not making much sense when talking. Unsure of when last drink was. Precedex is infusing at 0.4 mcg/kg/h. He does have bilateral upper extremity soft restraints on, which likely can be discontinued. Blood pressure is noted to be hypertensive, has received a clonidine 0.2 mg patch, which is fallen off and will be replaced. EKG shows normal sinus rhythm without any obvious acute ischemic changes. Patient's pain appears well-managed with current regimen of as needed Dilaudid. He does have some facial grimacing with palpation of the bilateral upper abdomen. Normal saline is infusing at 150 MLS per hour. Currently on room air, in no acute respiratory distress. Afebrile. He has been moved to room 262 in the intensive care unit. Patient was evaluated today on 10/25/2023, remains in the ICU, remains on Precedex at 1 mcg/kg/h. Remains on Cleviprex. Remains on Ativan intermittently and on Haldol. In spite of all of this the patient continues to have episodes of extreme agitation and restlessness. And seems to be delirious. Continues to have a sitter at bedside. His WBC is 7.8 hemoglobin 11.3 basic metabolic profile is normal renal profile is normal however his bicarb is 15, lipase is down to 164 today, it was 1668 yesterday, amylase is down to 112 from 598 yesterday obviously his acute pancreatitis is improving chest x-ray showed no evidence of active disease, minimal pulmonary vascular prominence Objective - Vital Signs Vital signs: Vital Signs Temp 99.5 F 10/25/23 12:00 Pulse 86 10/25/23 12:00 Resp 18 10/25/23 12:00 BP 168/93 10/25/23 12:00 Pulse Ox 95 10/25/23 12:00 FiO2 Intake & Output 10/24/23 10/25/23 10/25/23 18:59 06:59 18:59 Intake Total 7341.785 3651.938 814.867 Output Total 1675 1595 400 Balance -371.043 -193.062 414.867 Weight 70.5 kg Intake: IV 1100 1200 600 Sodium Chloride 0.9% 1, 1100 1200 600 000 ml @ 100 mls/hr IV . Q10H [facility] Rx#:[id number] Intake, IV Titration 203.957 201.938 214.867 Amount Clevidipine Butyrate 25 1.067 71.267 14.867 mg In Empty Bag 1 bag @ 2 MG/HR 4 mls/hr IV . [id number] [facility] Rx#:[id number] Dexmedetomidine/0.9% NaCl 102.890 130.671 100 (Pmx) 400 mcg In Empty Bag 1 bag @ 0.2 MCG/KG/HR 3.538 mls/hr IV .Q24H [facility] Rx#:[id number] Potassium Chloride 20 meq 100 100 In Water For Injection 1 100ml.bag @ 50 mls/hr IVPB ONCE STA Rx#: [id number] Output: Urine 1675 1575 400 Emesis 20 Other: Voiding Method External Catheter Indwelling Catheter Indwelling Catheter # Voids 1 # Bowel Movements 0 - Exam GENERAL EXAM: Revealed 48-year-old white male restless, agitated, tries to move out of bed, but not in respiratory distress. HEAD: Normocephalic and atraumatic EYES: Normal reaction of pupils, equal size. NOSE: Clear with pink turbinates. THROAT: No erythema or exudates. NECK: No masses, no JVD. CHEST: No chest wall deformity. Symmetrical chest wall expansion LUNGS: Clear throughout no crackles rhonchi or wheezes CVS: S1 and S2 normal with no audible murmur, regular rhythm. No extra heart sounds ABDOMEN: Soft nontender no megaly no rebound no guarding SKIN: No rashes CENTRAL NERVOUS SYSTEM: Patient is lethargic, does not follow any instructions seems to be quite restless, move all his extremities nonpurposeful movement. EXTREMITIES: No clubbing edema or cyanosis - Labs CBC & Chem 7: 10/25/23 06:12 10/25/23 06:12 Labs: Abnormal Lab Results - Last 24 Hours (Table) 10/24/23 10/25/23 10/25/23 Range/Units 14:47 06:12 06:12 RBC 3.43 L (4.30-5.90) m/uL Hgb 11.3 L (13.0-17.5) gm/dL Hct 35.6 L (39.0-53.0) % MCV 103.7 H (80.0-100.0) fL Plt Count 50 L (150-450) k/uL Lymphocytes # 0.5 L (1.0-4.8) k/uL Sodium 135 L (137-145) mmol/L Chloride 109 H (98-107) mmol/L Carbon Dioxide 15 L (22-30) mmol/L Glucose 68 L (74-99) mg/dL Calcium 8.2 L (8.4-10.2) mg/dL Total Bilirubin 1.6 H (0.2-1.3) mg/dL Total Protein 5.4 L (6.3-8.2) g/dL Albumin 2.8 L (3.5-5.0) g/dL Amylase 112 H (30-110) U/L Urine Protein 2+ H (Negative) Urine Ketones 1+ H (Negative) Urine Blood Moderate H (Negative) Ur Leukocyte Esterase Moderate H (Negative) Urine RBC 175 H (0-5) /hpf Urine WBC 49 H (0-5) /hpf Urine Mucus Rare H (None) /hpf Urine Opiates Screen Detected H (NotDetected) U Benzodiazepines Scrn Detected H (NotDetected) Assessment and Plan Assessment: Impression: Acute pancreatitis, EtOH related. Improving today based on lower amylase and lower lipase Alcohol intoxication, with impending acute alcohol withdrawal delirium tremens, serum EtOH level was 34 mg/dL at [facility] Hypertensive urgency, patient has started on a combination of as needed antihypertensives, and home antihypertensive medications have been resumed, patient is also receiving Cleviprex at 2 mg/h today Abdominal pain, secondary to acute pancreatitis Acute kidney injury, resolved History of alcoholism, unsure of last alcohol consumption Mild transaminitis, secondary to above History of coronary artery disease Current everyday smoker Recommendation: Continue CIWA protocol Continue IV fluids Continue Precedex as well as Ativan and Haldol Continue GI prophylaxis Hold heparin since the patient has low platelets Continue to monitor pancreatic enzymes Resume home meds Continue to monitor in the ICU Will continue to follow Time with Patient: Less than 30
[2023-10-25] MEDS: FUROSEMIDE 10 MG/ML 2 ML VIAL IV ONE (13:35)
--- NOTE | 2023-10-25 13:51 | PN ---
PROGRESS NOTE DATE OF SERVICE: 10/25/2023 SUBJECTIVE: This 48-year-old gentleman was admitted with acute alcohol withdrawals and severe DTs, needed to be on multiple medications including Precedex. The patient is closely monitored in ICU. The patient is combative and restless. The amylase lipase is decreasing to 112 and 164 possibly indicative of improving the pancreatitis. The cultures are negative so far. The patient is closely monitored at this time. PAST MEDICAL HISTORY: Reviewed. REVIEW OF SYSTEMS: Could not be taken. PHYSICAL EXAMINATION: VITAL SIGNS: Pulse is 87, blood pressure 150/103, respirations 22. HEENT: Conjunctivae normal. NECK: No jugular venous distention. RESPIRATIONS: Diminished at the bases, few scattered rhonchi and crackles. ABDOMEN: Soft. No guarding, no rigidity. NERVOUS SYSTEM: Could not be examined, diffusely weak and sedated. LABORATORY DATA: Reviewed. WBC 7.8. ASSESSMENT: 1. Acute alcohol withdrawal and acute severe delirium tremens necessitating IV drip in ICU. 2. Acute abdominal pain with acute alcoholic pancreatitis. 3. CAD history. 4. Hypertension. 5. History of nicotine dependence. 6. Multiple complex medical issues. RECOMMENDATIONS: Recommended to continue current medications, continue sedation. Repeat labs. Also obtain cultures to rule out the possibility of any infection or sepsis. Some of the labs are improving, however, the patient's condition is continues to be extremely serious. I would try to get a CT scan of the brain to rule out the possibility of any intracranial abnormalities and repeat chest x-ray. Guarded prognosis. Further recommendations to follow. MMODL / IJN: [id number] /
--- NOTE | 2023-10-25 16:08 | CT ---
EXAMINATION TYPE: CT brain wo con DATE OF EXAM: 10/25/2023 COMPARISON: None HISTORY: 48-year-old male ETOH, confusion, change in mentation TECHNIQUE: Examination was done in axial plane without intravenous contrast. Coronal and sagittal r econstructions performed. CT DLP: 1091.4 mGycm Automated exposure control for dose reduction was used. FINDINGS: There is no evidence of acute intracranial hemorrhage, acute ischemic changes, mass, mass-effect, or extra-axial fluid collection. There is no effacement of cerebral sulci or basal subarachnoid cister ns. There is no hydrocephalus. There is no midline shift. Peña-white matter distinction is preserv ed. Mild mucosal thickening ethmoid air cells. Layering fluid right sphenoid sinus. Mastoid air cells wel l pneumatized. The globes are intact. There is a posterior superior scalp hematoma. No underlying calvarial fracture. IMPRESSION: 1. Mild posterior superior scalp hematoma. No acute intracranial abnormality seen. 2. Some layering fluid in the right sphenoid sinus. Correlate for any symptoms of acute sinusitis.
[2023-10-26 05:34] LABS: Basophils % (A) 0 %; Eosinophils # (A) 0.1 k/uL (0-0.7); Eosinophils % (A) 2 %; HCT 35.4 % (39.0-53.0); HGB 11.3 gm/dL (13.0-17.5); Lymphocytes # (A) 0.6 k/uL (1.0-4.8); Lymphocytes % (A) 8 %; MCH 32.3 pg (25.0-35.0); MCHC 31.8 g/dL (31.0-37.0); MCV 101.4 fL (80.0-100.0); Macrocytosis Slight; Mean Platelet Volume 9.6; Monocytes # (A) 0.9 k/uL (0-1.0); Monocytes % (A) 12 %; Neutrophils # (A) 5.7 k/uL (1.3-7.7); Neutrophils % (A) 77 %; RBC 3.49 m/uL (4.30-5.90); RDW 14.4 % (11.5-15.5); WBC 7.4 k/uL (3.8-10.6)
[2023-10-26 05:35] LABS: Platelet Count 69 k/uL (150-450)
[2023-10-26 05:40] LABS: ALT 28 U/L (4-49); AST 36 U/L (17-59); African American GFR (CKD) >90 (>60 ml/min/1.73 sqM); Albumin 2.8 g/dL (3.5-5.0); Alkaline Phosphatase 133 U/L (38-126); Amylase 61 U/L (30-110); Anion Gap 9 mmol/L; Blood Urea Nitrogen 15 mg/dL (9-20); Calcium 8.3 mg/dL (8.4-10.2); Carbon Dioxide 20 mmol/L (22-30); Chloride 109 mmol/L (98-107); Glucose 71 mg/dL (74-99); Lipase 72 U/L (23-300); Non-African American GFR(CKD) >90 (>60 ml/min/1.73 sqM); Potassium 3.2 mmol/L (3.5-5.1); Sodium 138 mmol/L (137-145); Total Bilirubin 1.5 mg/dL (0.2-1.3); Total Protein 5.6 g/dL (6.3-8.2)
[2023-10-26] MEDS: POTASSIUM CHLORIDE 10 MEQ in WATER FOR INJECTION 1 100ML.BAG IVPB SCH (06:20)
[2023-10-26 06:56] LABS: Glucose,Whole Blood 70 mg/dL (70-110)
--- NOTE | 2023-10-26 08:24 | XR ---
EXAMINATION TYPE: XR chest 1V portable DATE OF EXAM: 10/26/2023 5:31 AM CLINICAL INDICATION:Male, 48 years old with history of chf; [facility] COMPARISON: Chest radiograph from one day prior. TECHNIQUE: XR chest 1V portable Frontal view of the chest. FINDINGS: Lungs/Pleura: There is no evidence of pleural effusion, focal consolidation, or pneumothorax. Pulmonary vascularity: Unremarkable. Heart/mediastinum: Cardiomediastinal silhouette is unremarkable. Musculoskeletal: No acute osseous pathology. Other findings: None IMPRESSION: No acute cardiopulmonary disease/process.
[2023-10-26] MEDS: IPRATROPIUM-ALBUTEROL 3 ML NEB INHALATION SCH (11:20)
[2023-10-26] MEDS: PIPERACILLIN-TAZOBACTAM 3.375 GM in SODIUM CHLORIDE 0.9% 100 ML IVPB SCH (11:53)
[2023-10-26] MEDS: HALOPERIDOL LACTATE 5 MG/ML 1 ML VIAL IVP PRN (11:53)
[2023-10-26 12:18] LABS: Glucose,Whole Blood 74 mg/dL (70-110)
--- NOTE | 2023-10-26 12:40 | P.PN ---
Subjective Progress Note Date: 10/26/23 Principal diagnosis: Acute alcohol withdrawal Patient is a 48-year-old white male with past medical history significant for hypertension, coronary artery disease, current everyday smoker, and alcohol abuse. He was transferred from [facility] 10/22/2023 for acute panc reatitis. He was noted to be intoxicated on arrival to outside facility, with an alcohol level of 34 mg/dL, while at our facility developed impending acute alcohol withdrawal delirium tremens. He required ICU admission for Precedex infusion. Patient is currently lethargic and not a very good historian. After reviewing the medical records from the outside facility, it appears he presented with abdominal pain. He was also noted to have severely elevated lipase and amylase levels. An abdominal and pelvis CT was performed, which identified peripancreatic inflammatory stranding and fluid consistent with acute pancreatitis. No pseudocyst, abscess, or pancreatic necrosis. No gallstones or ductal dilation. There was decreased attenuation of the hepatic parenchyma, suggestive of fatty infiltration. Patient was dehdydrated and noted to have sustained an WILFRIDO. It appears he was fluid resuscitated with 2 L of crystalloid fluid. He was then transferred to [facility]. He was noted to be agitated and combative. He had received multiple doses of Ativan, I am told a total of 16 mg. He was also receiving Haldol. Despite this, he had sustained recorded CIWA scores greater than 28, and for this reason he was placed on a Precedex infusion and admitted to the intensive care unit. Most recent CBC from yesterday: WBC count 7.6, hemoglobin 13.9, hematocrit 42, platelets 110. Most recent CMP from yesterday: Sodium 138, potassium 4.4, chloride 108, serum bicarb 19, BUN 18, creatinine 1.13, glucose 94. AST 97, ALT 74, ALP 156, total bilirubin 1. Lipase 11,329 and amylase 1468. Patient is currently lethargic and not making much sense when talking. Unsure of when last drink was. Precedex is infusing at 0.4 mcg/kg/h. He does have bilateral upper extremity soft restraints on, which likely can be discontinued. Blood pressure is noted to be hypertensive, has received a clonidine 0.2 mg patch, which is fallen off and will be replaced. EKG shows normal sinus rhythm without any obvious acute ischemic changes. Patient's pain appears well-managed with current regimen of as needed Dilaudid. He does have some facial grimacing with palpation of the bilateral upper abdomen. Normal saline is infusing at 150 MLS per hour. Currently on room air, in no acute respiratory distress. Afebrile. He has been moved to room 262 in the intensive care unit. Patient was evaluated today on 10/25/2023, remains in the ICU, remains on Precedex at 1 mcg/kg/h. Remains on Cleviprex. Remains on Ativan intermittently and on Haldol. In spite of all of this the patient continues to have episodes of extreme agitation and restlessness. And seems to be delirious. Continues to have a sitter at bedside. His WBC is 7.8 hemoglobin 11.3 basic metabolic profile is normal renal profile is normal however his bicarb is 15, lipase is down to 164 today, it was 1668 yesterday, amylase is down to 112 from 598 yesterday obviously his acute pancreatitis is improving chest x-ray showed no evidence of active disease, minimal pulmonary vascular prominence Reevaluate today on 10/26/2023, patient remains in the ICU, he is on room air, continues to have intermittent episodes of extreme agitation, remains on Precedex at 1.4 mcg/kg/h, remains on Ativan intermittently and Haldol intermittently, nonetheless continues to have episodes of significant agitations. Patient is on the CIWA protocol, he seems to require suctioning of his oropharynx, purulent material is noted, patient does have gag with suctioning and able to protect his airways. But he has a very poor cough reflex. At any rate patient will need to be on oral medications, and I am recommending a nasogastric tube to be placed today, if the patient continues to do poorly may have to consider intubation and mechanical ventilation, however this will be the last resort. In the meantime I believe the patient will remain on the same medications he is presently on and will remain on the CIWA protocol. Needs definitely close monitoring in the ICU. Patient is purulent secretions I recommended empirically starting the patient on Zosyn. WBC count is 7.4 hemoglobin 11.3 basic metabolic profile is normal except for low potassium of 3.2 renal profile is normal lipase is down to 72 amylase is normal Objective - Vital Signs Vital signs: Vital Signs Temp 99.2 F 10/26/23 12:00 Pulse 108 H 10/26/23 12:00 Resp 24 10/26/23 12:00 BP 140/86 10/26/23 12:00 Pulse Ox 97 10/26/23 12:00 FiO2 Intake & Output 10/25/23 10/26/23 10/26/23 18:59 06:59 18:59 Intake Total 1352.867 947.029 775.803 Output Total 2850 855 225 Balance -1497.133 92.029 550.803 Weight 69.1 kg Intake: IV 1020 700 760 Piperacillin-Tazobactam 3 100 .375 gm In Sodium Chloride 0.9% 100 ml @ 25 mls/hr IVPB Q8HR [facility] Rx# :[id number] Potassium Chloride 10 meq 100 300 In Water For Injection 1 100ml.bag @ 100 mls/hr IVPB Q1HR [facility] Rx#: [id number] Sodium Chloride 0.9% 1, 1020 600 360 000 ml @ 60 mls/hr IV . [id number] [facility] Rx#:[id number] Intake, IV Titration 332.867 247.029 15.803 Amount Clevidipine Butyrate 25 32.867 48.634 mg In Empty Bag 1 bag @ 2 MG/HR 4 mls/hr IV . [id number] [facility] Rx#:[id number] Dexmedetomidine/0.9% NaCl 200.000 198.395 15.803 (Pmx) 400 mcg In Empty Bag 1 bag @ 0.2 MCG/KG/HR 3.538 mls/hr IV .Q24H [facility] Rx#:[id number] Potassium Chloride 20 meq 100 In Water For Injection 1 100ml.bag @ 50 mls/hr IVPB ONCE STA Rx#: [id number] Output: Urine 2850 855 225 Other: Voiding Method Indwelling Catheter Indwelling Catheter # Bowel Movements 0 - Exam GENERAL EXAM: Revealed 48-year-old white male restless, agitated, tries to move out of bed, but not in respiratory distress. Patient remains on room air HEAD: Normocephalic and atraumatic EYES: Normal reaction of pupils, equal size. NOSE: Clear with pink turbinates. THROAT: No erythema or exudates. NECK: No masses, no JVD. CHEST: No chest wall deformity. Symmetrical chest wall expansion LUNGS: Clear throughout no crackles rhonchi or wheezes CVS: S1 and S2 normal with no audible murmur, regular rhythm. No extra heart sounds ABDOMEN: Soft nontender no megaly no rebound no guarding SKIN: No rashes CENTRAL NERVOUS SYSTEM: Patient is lethargic, does not follow any instructions seems to be quite restless, move all his extremities, gets agitated easily EXTREMITIES: No clubbing edema or cyanosis - Labs CBC & Chem 7: 10/26/23 04:29 10/26/23 04:29 Labs: Abnormal Lab Results - Last 24 Hours (Table) 10/26/23 10/26/23 Range/Units 04:29 04:29 RBC 3.49 L (4.30-5.90) m/uL Hgb 11.3 L (13.0-17.5) gm/dL Hct 35.4 L (39.0-53.0) % MCV 101.4 H (80.0-100.0) fL Plt Count 69 L (150-450) k/uL Lymphocytes # 0.6 L (1.0-4.8) k/uL Potassium 3.2 L (3.5-5.1) mmol/L Chloride 109 H (98-107) mmol/L Carbon Dioxide 20 L (22-30) mmol/L Glucose 71 L (74-99) mg/dL Calcium 8.3 L (8.4-10.2) mg/dL Total Bilirubin 1.5 H (0.2-1.3) mg/dL Alkaline Phosphatase 133 H (38-126) U/L Total Protein 5.6 L (6.3-8.2) g/dL Albumin 2.8 L (3.5-5.0) g/dL Assessment and Plan Assessment: Impression: Acute pancreatitis, EtOH related. Improving today based on lower amylase and lower lipase Alcohol intoxication, with impending acute alcohol withdrawal delirium tremens, serum EtOH level was 34 mg/dL at [facility] Hypertensive urgency, resolved Abdominal pain, secondary to acute pancreatitis, resolved Acute kidney injury, resolved History of alcoholism, unsure of last alcohol consumption Mild transaminitis, secondary to above, improving History of coronary artery disease Current everyday smoker Recommendation: nasogastric tube placement Continue CIWA protocol Continue IV fluids Continue Precedex as well as Ativan and Haldol Continue GI prophylaxis Continue to hold heparin/Lovenox Continue to monitor in the ICU Aspiration precautions Start patient on Zosyn empirically Will continue to follow Time with Patient: Less than 30
--- NOTE | 2023-10-26 13:18 | P.PN ---
Subjective Progress Note Date: 10/26/23 Principal diagnosis: Pancreatitis This is a 48-year-old male who was transferred from [facility] for alcohol intoxication and acute alcohol pancreatitis. Patient states abdominal pain started about 3 days ago. He was seen at [facility] and had a CT of the abdomen pelvis. It reported peripancreatic inflammatory stranding and fluid consistent with acute pancreatitis. No pseudocyst abscess or pancreatic necrosis. Decreased attenuation of the hepatic parenchyma noted, suggestive of fatty infiltration. He was also noted to have elevated amylase and lipase. Patient EtOH level was 34. He is seen and examined in the emergency department. He does appear to be intoxicated and is unsteady on his feet. He states he does have a history of alcoholism and he has been cutting back and drinks 2-3 tall boys a day. 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 States abdominal pain is improving. No nausea or vomiting currently. On today's labs it was noted amylase of 1468 and lipase 11,329. Gastroenterology was consulted for pancreatitis. WBC 7.6 hemoglobin 13.9 hematocrit 100 platelet count 110,000 sodium 138 potassium 4.4 BUN 18 creatinine 1.1 total bilirubin 1.0 AST 97 ALT 74 alkaline phosphatase 156 10/24/2023 Patient seen and examined in the ICU. Patient is pretty sedated at this time and was just given Ativan. Patient was transferred to the ICU yesterday for alcohol withdrawals and delirium. Patient is currently in 2 point soft restraints. He is arousable to stimuli. Abdomen is soft and nondistended. Total bilirubin 1.3 AST 53 ALT 42 alkaline phosphatase 112 amylase is down to 598 from 1468 lipase 1668 down from 11,329 10/25/2023 Patient seen and examined in the ICU. Patient is still actively going through withdrawal symptoms. He remains on Precedex. He remains in 2 point soft wrist restraints. He denies any abdominal pain, no nausea or vomiting. Total bilirubin 1.6 AST 41 ALT 31 alkaline phosphatase 113 amylase 112 lipase 164. 10/26/2023 Patient seen and examined today as a follow-up. He remains in the ICU. He remains going through significant withdrawal symptoms. he denies any abdominal pain, nausea or vomiting. Objective - Vital Signs Vital signs: Vital Signs Temp 99.6 F 10/26/23 04:00 Pulse 96 10/26/23 07:00 Resp 21 10/26/23 07:00 BP 140/119 10/26/23 07:00 Pulse Ox 94 L 10/26/23 07:00 FiO2 Intake & Output 10/25/23 10/26/23 10/26/23 18:59 06:59 18:59 Intake Total 1352.867 947.029 75.803 Output Total 2850 855 75 Balance -1497.133 92.029 0.803 Weight 69.1 kg Intake: IV 1020 700 60 Potassium Chloride 10 meq 100 In Water For Injection 1 100ml.bag @ 100 mls/hr IVPB Q1HR [facility] Rx#: [id number] Sodium Chloride 0.9% 1, 1020 600 60 000 ml @ 60 mls/hr IV . [id number] [facility] Rx#:[id number] Intake, IV Titration 332.867 247.029 15.803 Amount Clevidipine Butyrate 25 32.867 48.634 mg In Empty Bag 1 bag @ 2 MG/HR 4 mls/hr IV . [id number] [facility] Rx#:[id number] Dexmedetomidine/0.9% NaCl 200.000 198.395 15.803 (Pmx) 400 mcg In Empty Bag 1 bag @ 0.2 MCG/KG/HR 3.538 mls/hr IV .Q24H [facility] Rx#:[id number] Potassium Chloride 20 meq 100 In Water For Injection 1 100ml.bag @ 50 mls/hr IVPB ONCE STA Rx#: [id number] Output: Urine 2850 855 75 Other: Voiding Method Indwelling Catheter Indwelling Catheter - Exam General appearance: The patient is alert. In 2 point soft wrist restraints. Appears in no acute distress. HET: Head is normocephalic and atraumatic. Conjunctiva pink. Sclera anicteric. Neck: Supple without lymphadenopathy. Abdomen: Soft, nontender, nondistended. Extremities: Normal skin color and turgor. No pedal edema Skin: No rashes, no jaundice Neurological: Patient is alert, but drowsy. - Labs CBC & Chem 7: 10/26/23 04:29 10/26/23 04:29 Labs: Abnormal Lab Results - Last 24 Hours (Table) 10/26/23 10/26/23 Range/Units 04:29 04:29 RBC 3.49 L (4.30-5.90) m/uL Hgb 11.3 L (13.0-17.5) gm/dL Hct 35.4 L (39.0-53.0) % MCV 101.4 H (80.0-100.0) fL Plt Count 69 L (150-450) k/uL Lymphocytes # 0.6 L (1.0-4.8) k/uL Potassium 3.2 L (3.5-5.1) mmol/L Chloride 109 H (98-107) mmol/L Carbon Dioxide 20 L (22-30) mmol/L Glucose 71 L (74-99) mg/dL Calcium 8.3 L (8.4-10.2) mg/dL Total Bilirubin 1.5 H (0.2-1.3) mg/dL Alkaline Phosphatase 133 H (38-126) U/L Total Protein 5.6 L (6.3-8.2) g/dL Albumin 2.8 L (3.5-5.0) g/dL Assessment and Plan (1) Alcoholic pancreatitis Narrative/Plan: . 48-year-old male transferred from outside facility for acute pancreatitis likely secondary to alcohol abuse. Patient has longstanding history of alcohol abuse drinks daily states he was drinking 14 beers a day for at least the past 10 years or more. States he has cut back to 2-3 tall boys a day. Patient was intoxicated this morning when interviewed. He states abdominal pain improving. No nausea or vomiting. He is on a clear liquid diet. Current Visit: Yes Status: Acute Code(s): K85.20 - ALCOHOL INDUCED ACUTE PANCREATITIS WITHOUT NECROSIS OR INFCT SNOMED Code(s): 469235830 (2) Alcohol abuse Current Visit: Yes Status: Acute Code(s): F10.10 - ALCOHOL ABUSE, UNCOMPLICATED SNOMED Code(s): 69201529 (3) Alcohol intoxication Current Visit: Yes Status: Acute Code(s): F10.929 - ALCOHOL USE, UNSPECIFIED WITH INTOXICATION, UNSPECIFIED SNOMED Code(s): 61678661 (4) Alcohol withdrawal Current Visit: Yes Status: Acute Code(s): F10.939 - ALCOHOL USE, UNSPECIFIED WITH WITHDRAWAL, UNSPECIFIED SNOMED Code(s): 647067225 Plan: 1. Continue symptomatic and supportive care 2. Advance to low-fat diet 3. Continue with CIWA protocol 4. Recommend alcohol abstinence. Importance of alcohol abstinence discussed wi th patient and effects of alcohol on overall health and continued pancreatitis. 5. No further workup for pancreatitis from gastroenterology 6. Continue rest of medical management per primary medical team and ICU team Thank you for this consultation, we will sign off at this time. Dr. Mecca Bui I agree with the dictator's note, documented as a scribe by Awilda Fuentes.
--- NOTE | 2023-10-26 13:26 | XR ---
EXAMINATION TYPE: XR chest 1V portable DATE OF EXAM: 10/26/2023 1:07 PM CLINICAL INDICATION:Male, 48 years old with history of post ng tube placement; [facility] COMPARISON: Chest radiographs from 10/26/2023 TECHNIQUE: XR chest 1V portable Frontal view of the chest. FINDINGS: Lungs/Pleura: Low lung volumes are present. There is no evidence of pleural effusion, focal consolida tion, or pneumothorax. Pulmonary vascularity: Unremarkable. Heart/mediastinum: Cardiomediastinal silhouette is enlarged and stable. Musculoskeletal: No acute osseous pathology. Is a gastric tube terminating over the upper abdomen. IMPRESSION: Low lung volumes, No acute cardiopulmonary disease/process.
[2023-10-26] MEDS: HEPARIN SODIUM,PORCINE 5,000 UNIT/ML 1 ML VIAL SQ SCH (13:38)
[2023-10-26] MEDS ORDERED: DEXTROSE 50% SYRINGE 50 ML IVP PRN (13:42)
[2023-10-26] MEDS ORDERED: Potassium Replacement Protocol 1 EACH MISC MISCELLANE PRN (15:53)
[2023-10-26] MEDS: POTASSIUM BICARBONATE/CIT AC 20 MEQ TABLET.EFF NG-TUBE SCH ×2 (16:05→20:47)
[2023-10-26] MEDS: QUEtiapine 50 MG TAB PO STA (16:06)
[2023-10-26] MEDS: DEXTROSE 50% SYRINGE 50 ML IVP PRN (16:07)
[2023-10-26] MEDS ORDERED: HALOPERIDOL LACTATE 5 MG/ML 1 ML VIAL IVP PRN (18:16)
[2023-10-26] MEDS ORDERED: IPRATROPIUM-ALBUTEROL 3 ML NEB INHALATION PRN (19:02)
--- NOTE | 2023-10-26 19:48 | XR ---
EXAMINATION TYPE: XR chest 1V portable DATE OF EXAM: 10/26/2023 COMPARISON: 10/26/2023 HISTORY: Tube placement TECHNIQUE: Single frontal view of the chest is obtained. FINDINGS: There is been interval insertion of ET tube approximately 3.5 cm above the paul. The NG tube is wit hin the stomach. There is no change in the mild cardiomegaly, bilateral pulmonary vascular congestion. There is no pneumothorax. IMPRESSION: 1. ET tube 3.5 cm above the paul. NG tube is in the stomach. 2. No change in the acute cardiopulmonary disease.
[2023-10-26] MEDS ORDERED: NALOXONE 0.4 MG/ML 1 ML VIAL IV PRN (19:55)
[2023-10-26] MEDS ORDERED: Phosphorus Replacement Protoco 1 EACH MISC MISCELLANE PRN (19:55)
[2023-10-26] MEDS ORDERED: Magnesium Replacement Protocol 1 EACH MISC MISCELLANE PRN (19:55)
[2023-10-26] MEDS: SODIUM CHLORIDE 0.9% 1,000 ML IV ONE (20:03)
[2023-10-26] MEDS: SODIUM CHLORIDE 0.9% 1,000 ML IV SCH (20:37)
[2023-10-26] MEDS: NYSTATIN 100,000 UNIT/ML SUSP 500,000 UNIT/5 ML CUP PO SCH (20:47)
[2023-10-26] MEDS: CHLORHEXIDINE GLUCONATE 15 ML CUP MUCOUS MEM SCH (20:47)
[2023-10-26] MEDS: QUEtiapine 100 MG TAB PO SCH (20:48)
--- NOTE | 2023-10-26 21:15 | PN ---
PROGRESS NOTE DATE OF SERVICE: 10/26/2023 SUBJECTIVE: This 48-year-old gentleman admitted with alcohol withdrawal, DTs, continues to be delirious. Patient on multiple medications. The patient also had possible aspiration also. The most recent chest x-ray showed some atelectasis as well. White count 7.4 today, hemoglobin 11.3, platelets are low, potassium 3.2. PAST MEDICAL HISTORY: Reviewed. REVIEW OF SYSTEMS: Could not be taken. CURRENT MEDICATIONS: Reviewed include DuoNeb. PHYSICAL EXAMINATION: VITAL SIGNS: Pulse is 108, blood pressure 140/80, respirations 25. HEENT: Conjunctivae normal. CARDIOVASCULAR: S1, S2. RESPIRATIONS: Bilateral scattered rhonchi. and crackles. ABDOMEN: Soft. NERVOUS SYSTEM: Could not be tested. LABORATORY DATA: Reviewed as mentioned earlier. ASSESSMENT: 1. Acute alcohol withdrawal and acute severe delirium tremens necessitating IV drip in ICU. 2. Acute abdominal pain with acute alcoholic pancreatitis. 3. Possible severe bronchospasm on aspiration. 4. CAD history. 5. Hypertension. 6. History of nicotine dependence. 7. Multiple complex medical issues. RECOMMENDATIONS: Recommended to continue current management, continue symptomatic treatment. Otherwise, supplement potassium, bronchodilators,. Would also recommend serum procalcitonin. If it is high, also broad-spectrum IV antibiotics to cover for the possible aspiration cultures. Guarded prognosis. Further recommendations to follow. MMODL / IJN: [id number] /
[2023-10-26 21:16] LABS: ABG Base Excess -8.4 mmol/L; ABG HCO3 18 mmol/L (21-25); ABG PCO2 35 mmHg (35-45); ABG PH 7.32 (7.35-7.45); ABG PO2 >400 mmHg (83-108); ABG TCO2 19 mmol/L (19-24); Allen Test Performed? Yes
[2023-10-26] MEDS: BUDESONIDE 0.5 MG/2 ML NEBU INHALATION SCH (22:01)
[2023-10-27 00:03] LABS: Glucose,Whole Blood 87 mg/dL (70-110)
[2023-10-27 05:30] LABS: ABG Base Excess -10.1 mmol/L; ABG HCO3 16 mmol/L (21-25); ABG Oxygen Saturation 98.8 % (94-97); ABG PCO2 34 mmHg (35-45); ABG PO2 131 mmHg (83-108); ABG TCO2 17 mmol/L (19-24); Allen Test Performed? Yes
[2023-10-27 06:03] LABS: Glucose,Whole Blood 87 mg/dL (70-110)
[2023-10-27 06:23] LABS: Basophils % (A) 0 %; Eosinophils % (A) 1 %; HCT 31.1 % (39.0-53.0); Hypochromasia Marked; Lymphocytes # (A) 0.4 k/uL (1.0-4.8); Lymphocytes % (A) 6 %; MCH 32.7 pg (25.0-35.0); MCHC 30.3 g/dL (31.0-37.0); Macrocytosis Marked; Mean Platelet Volume 10.3; Monocytes # (A) 1.1 k/uL (0-1.0); Monocytes % (A) 18 %; Neutrophils # (A) 4.3 k/uL (1.3-7.7); Neutrophils % (A) 73 %; Platelet Count 93 k/uL (150-450); RBC 2.88 m/uL (4.30-5.90); WBC 5.9 k/uL (3.8-10.6)
[2023-10-27 06:36] LABS: HGB 9.4 gm/dL (13.0-17.5)
[2023-10-27 06:50] LABS: African American GFR (CKD) >90 (>60 ml/min/1.73 sqM); Anion Gap 13 mmol/L; Blood Urea Nitrogen 17 mg/dL (9-20); Calcium 7.8 mg/dL (8.4-10.2); Carbon Dioxide 14 mmol/L (22-30); Chloride 114 mmol/L (98-107); Glucose 80 mg/dL (74-99); Magnesium 1.6 mg/dL (1.6-2.3); Non-African American GFR(CKD) 88 (>60 ml/min/1.73 sqM); Phosphorus 4.9 mg/dL (2.5-4.5); Potassium 3.8 mmol/L (3.5-5.1); Sodium 141 mmol/L (137-145)
[2023-10-27] MEDS: NOREPINEPHRINE 4 MG in SODIUM CHLORIDE 0.9% 250 ML IV SCH (07:23)
[2023-10-27] MEDS: MAGNESIUM SULFATE-D5W PMX 1 GM in DEXTROSE/WATER 1 100ML.BAG IVPB SCH (08:02)
[2023-10-27] MEDS: POTASSIUM BICARBONATE/CIT AC 20 MEQ TABLET.EFF NG-TUBE SCH ×3 (08:06→20:14)
[2023-10-27] MEDS: bisacodyL 10 MG SUPP RECTAL PRN (08:06)
[2023-10-27] MEDS: FUROSEMIDE 10 MG/ML 2 ML VIAL IV STA (08:06)
--- NOTE | 2023-10-27 08:14 | XR ---
EXAMINATION TYPE: XR chest 1V portable DATE OF EXAM: 10/27/2023 4:14 AM CLINICAL INDICATION:Male, 48 years old with history of Tube placement COMPARISON: Chest radiographs from 10/26/2023 TECHNIQUE: XR chest 1V portable Frontal view of the chest. FINDINGS: Lungs/Pleura: There is no evidence of pleural effusion, focal consolidation, or pneumothorax. Pulmonary vascularity: Unremarkable. Heart/mediastinum: Cardiomediastinal silhouette is unremarkable. Musculoskeletal: No acute osseous pathology. Other findings: None Lines/Tubes: Endotracheal tube with distal tip 5.8 cm above the paul. IMPRESSION: 1. Similar pulmonary vascular congestion and cardiomegaly. 2. Support tubes in appropriate position.
[2023-10-27 11:30] LABS: Glucose,Whole Blood 105 mg/dL (70-110)
[2023-10-27] MEDS: SODIUM BICARBONATE TAB 650 MG TAB PO SCH (12:32)
--- NOTE | 2023-10-27 13:45 | OP ---
OPERATIVE REPORT DATE OF SERVICE : PROCEDURE PERFORMED: Placement of right arterial line for hemodynamic monitoring and for frequent blood draws. PREOPERATIVE DIAGNOSES: Acute alcohol withdrawal, requiring intubation and mechanical ventilation for airways protection. POSTOPERATIVE DIAGNOSES: Acute alcohol withdrawal, requiring intubation and mechanical ventilation for airways protection. ANESTHESIA USED: None deployed. DESCRIPTION OF PROCEDURE: The patient was placed in a supine position. The right wrist was prepared in a sterile fashion. Drapes were applied and the right radial artery was palpated and cannulated easily, a guidewire was placed, Cook's catheter inserted over the guidewire, and the guidewire was removed. Good blood flow, good waveform noted, no complications, line was secured using 3.0 silk sutures. MMODL / IJN: [id number] /
--- NOTE | 2023-10-27 14:22 | P.PN ---
Subjective Progress Note Date: 10/27/23 Principal diagnosis: Acute alcohol withdrawal Patient is a 48-year-old white male with past medical history significant for hypertension, coronary artery disease, current everyday smoker, and alcohol abuse. He was transferred from [facility] 10/22/2023 for acute panc reatitis. He was noted to be intoxicated on arrival to outside facility, with an alcohol level of 34 mg/dL, while at our facility developed impending acute alcohol withdrawal delirium tremens. He required ICU admission for Precedex infusion. Patient is currently lethargic and not a very good historian. After reviewing the medical records from the outside facility, it appears he presented with abdominal pain. He was also noted to have severely elevated lipase and amylase levels. An abdominal and pelvis CT was performed, which identified peripancreatic inflammatory stranding and fluid consistent with acute pancreatitis. No pseudocyst, abscess, or pancreatic necrosis. No gallstones or ductal dilation. There was decreased attenuation of the hepatic parenchyma, suggestive of fatty infiltration. Patient was dehdydrated and noted to have sustained an WILFRIDO. It appears he was fluid resuscitated with 2 L of crystalloid fluid. He was then transferred to [facility]. He was noted to be agitated and combative. He had received multiple doses of Ativan, I am told a total of 16 mg. He was also receiving Haldol. Despite this, he had sustained recorded CIWA scores greater than 28, and for this reason he was placed on a Precedex infusion and admitted to the intensive care unit. Most recent CBC from yesterday: WBC count 7.6, hemoglobin 13.9, hematocrit 42, platelets 110. Most recent CMP from yesterday: Sodium 138, potassium 4.4, chloride 108, serum bicarb 19, BUN 18, creatinine 1.13, glucose 94. AST 97, ALT 74, ALP 156, total bilirubin 1. Lipase 11,329 and amylase 1468. Patient is currently lethargic and not making much sense when talking. Unsure of when last drink was. Precedex is infusing at 0.4 mcg/kg/h. He does have bilateral upper extremity soft restraints on, which likely can be discontinued. Blood pressure is noted to be hypertensive, has received a clonidine 0.2 mg patch, which is fallen off and will be replaced. EKG shows normal sinus rhythm without any obvious acute ischemic changes. Patient's pain appears well-managed with current regimen of as needed Dilaudid. He does have some facial grimacing with palpation of the bilateral upper abdomen. Normal saline is infusing at 150 MLS per hour. Currently on room air, in no acute respiratory distress. Afebrile. He has been moved to room 262 in the intensive care unit. Patient was evaluated today on 10/25/2023, remains in the ICU, remains on Precedex at 1 mcg/kg/h. Remains on Cleviprex. Remains on Ativan intermittently and on Haldol. In spite of all of this the patient continues to have episodes of extreme agitation and restlessness. And seems to be delirious. Continues to have a sitter at bedside. His WBC is 7.8 hemoglobin 11.3 basic metabolic profile is normal renal profile is normal however his bicarb is 15, lipase is down to 164 today, it was 1668 yesterday, amylase is down to 112 from 598 yesterday obviously his acute pancreatitis is improving chest x-ray showed no evidence of active disease, minimal pulmonary vascular prominence Reevaluate today on 10/26/2023, patient remains in the ICU, he is on room air, continues to have intermittent episodes of extreme agitation, remains on Precedex at 1.4 mcg/kg/h, remains on Ativan intermittently and Haldol intermittently, nonetheless continues to have episodes of significant agitations. Patient is on the CIWA protocol, he seems to require suctioning of his oropharynx, purulent material is noted, patient does have gag with suctioning and able to protect his airways. But he has a very poor cough reflex. At any rate patient will need to be on oral medications, and I am recommending a nasogastric tube to be placed today, if the patient continues to do poorly may have to consider intubation and mechanical ventilation, however this will be the last resort. In the meantime I believe the patient will remain on the same medications he is presently on and will remain on the CIWA protocol. Needs definitely close monitoring in the ICU. Patient is purulent secretions I recommended empirically starting the patient on Zosyn. WBC count is 7.4 hemoglobin 11.3 basic metabolic profile is normal except for low potassium of 3.2 renal profile is normal lipase is down to 72 amylase is normal Patient was reevaluated today on 10/27/2023, patient received significant amount of sedation yesterday, and continued to be restless and agitated, at 1 point he desaturated, and he was gurgling with secretions, I was made aware of the patient and recommended intubation. Patient was intubated and placed on mechanical ventilation overnight, he is on assist-control rate of 20 tidal volume 400 FiO2 40% and PEEP of 5 ABG showed a pO2 of 131 pCO2 34 pH of 7.30 hence kept on the same ventilator settings. He is on propofol at 65 mcg/kg/min is also 1.9 normal saline at 125 cc/h. Patient is receiving bicarb orally for low bicarb. He is also on Zosyn empirically. Patient is also on enteral feeding. Today I went ahead and placed a right radial arterial line for hemodynamic monitoring and for frequent blood draws. WBC count is 5.9 hemoglobin is 9.4. Basic metabolic profile is normal except for bicarb of 14 patient has a hyperchloremic metabolic none anion gap metabolic acidosis. Chest x-ray showed pulmonary vascular congestion, patient received a dose of Lasix earlier this morning Objective - Vital Signs Vital signs: Vital Signs Temp 99.3 F 10/27/23 08:00 Pulse 76 10/27/23 11:56 Resp 20 10/27/23 11:00 BP 99/86 10/27/23 11:00 Pulse Ox 98 10/27/23 11:00 FiO2 40 10/27/23 11:47 Intake & Output 10/26/23 10/27/23 10/27/23 18:59 06:59 18:59 Intake Total 9912.728 0073.366 919.395 Output Total 505 745 550 Balance 5247.727 3877.366 369.395 Weight 74.5 kg 74.5 kg Intake: IV 1310 3099 800 Invasive Line 4 30 Invasive Line 6 50 Invasive Line 7 10 Magnesium Sulfate-D5w Pmx 200 1 gm In Dextrose/Water 1 100ml.bag @ 100 mls/hr IVPB Q1H [facility] Rx#: [id number] Piperacillin-Tazobactam 3 200 100 100 .375 gm In Sodium Chloride 0.9% 100 ml @ 25 mls/hr IVPB Q8HR [facility] Rx# :[id number] Potassium Chloride 10 meq 300 In Water For Injection 1 100ml.bag @ 100 mls/hr IVPB Q1HR [facility] Rx#: [id number] Sodium Chloride 0.9% 1, 1500 500 000 ml @ 125 mls/hr IV . Q8H [facility] Rx#:[id number] Sodium Chloride 0.9% 1, 720 500 000 ml @ 60 mls/hr IV . [id number] [facility] Rx#:[id number] Sodium Chloride 0.9% 1, 999 000 ml @ 999 mls/hr IV . Q1H1M [facility] Rx#:[id number] Intake, IV Titration 65.711 270.366 119.395 Amount Clevidipine Butyrate 25 8.433 mg In Empty Bag 1 bag @ 2 MG/HR 4 mls/hr IV . [id number] [facility] Rx#:[id number] Dexmedetomidine/0.9% NaCl 57.278 100 (Pmx) 400 mcg In Empty Bag 1 bag @ 0.2 MCG/KG/HR 3.538 mls/hr IV .Q24H [facility] Rx#:[id number] Norepinephrine 4 mg In 11.759 Sodium Chloride 0.9% 250 ml @ 0.05 MCG/KG/MIN 13. 164 mls/hr IV .[id number] [facility] Rx#:[id number] propofoL 1,000 mg In 170.366 107.636 Empty Bag 1 bag @ 15 MCG/ KG/MIN 6.219 mls/hr IV . Q16H5M [facility] Rx#:[id number] Other 500 Output: Gastric Drainage 215 150 Urine 505 530 400 Other: Voiding Method Indwelling Catheter Indwelling Catheter Indwelling Catheter # Bowel Movements 0 0 ABP, PAP, CO, CI - Last Documented Arterial Blood Pressure 90/40 - Exam GENERAL EXAM: Revealed 48-year-old white male, intubated, sedated, calm, not in distress. Maintained on propofol HEAD: Normocephalic and atraumatic EYES: Normal reaction of pupils, equal size. NOSE: Clear with pink turbinates. THROAT: No erythema or exudates. Endotracheal tube and orogastric tube are intact. NECK: No masses, no JVD. CHEST: No chest wall deformity. Symmetrical chest wall expansion LUNGS: Clear throughout no crackles rhonchi or wheezes CVS: S1 and S2 normal with no audible murmur, regular rhythm. No extra heart sounds ABDOMEN: Soft nontender no megaly no rebound no guarding SKIN: No rashes CENTRAL NERVOUS SYSTEM: Not assessed, fully sedated. EXTREMITIES: No clubbing edema or cyanosis - Labs CBC & Chem 7: 10/27/23 05:41 10/27/23 11:33 Labs: Abnormal Lab Results - Last 24 Hours (Table) 10/26/23 10/26/23 10/27/23 Range/Units 14:26 21:15 05:29 RBC (4.30-5.90) m/uL Hgb (13.0-17.5) gm/dL Hct (39.0-53.0) % MCV (80.0-100.0) fL MCHC (31.0-37.0) g/dL Plt Count (150-450) k/uL Lymphocytes # (1.0-4.8) k/uL Monocytes # (0-1.0) k/uL Macrocytosis ABG pH 7.32 L 7.30 L (7.35-7.45) ABG pCO2 34 L (35-45) mmHg ABG pO2 >400 H 131 H (83-108) mmHg ABG HCO3 18 L 16 L (21-25) mmol/L ABG Total CO2 17 L (19-24) mmol/L ABG O2 Saturation 100.0 H 98.8 H (94-97) % Chloride (98-107) mmol/L Carbon Dioxide (22-30) mmol/L Plasma Lactic Acid Farrukh <0.5 L (0.7-2.0) mmol/L Calcium (8.4-10.2) mg/dL Phosphorus (2.5-4.5) mg/dL 10/27/23 10/27/23 Range/Units 05:41 05:41 RBC 2.88 L (4.30-5.90) m/uL Hgb 9.4 L D (13.0-17.5) gm/dL Hct 31.1 L (39.0-53.0) % MCV 108.0 H D (80.0-100.0) fL MCHC 30.3 L (31.0-37.0) g/dL Plt Count 93 L (150-450) k/uL Lymphocytes # 0.4 L (1.0-4.8) k/uL Monocytes # 1.1 H (0-1.0) k/uL Macrocytosis Marked A ABG pH (7.35-7.45) ABG pCO2 (35-45) mmHg ABG pO2 (83-108) mmHg ABG HCO3 (21-25) mmol/L ABG Total CO2 (19-24) mmol/L ABG O2 Saturation (94-97) % Chloride 114 H (98-107) mmol/L Carbon Dioxide 14 L (22-30) mmol/L Plasma Lactic Acid Farrukh (0.7-2.0) mmol/L Calcium 7.8 L (8.4-10.2) mg/dL Phosphorus 4.9 H (2.5-4.5) mg/dL Microbiology - Last 24 Hours (Table) 10/26/23 19:25 Gram Stain - Preliminary Sputum Assessment and Plan Assessment: Impression: Acute hypoxic respiratory failure secondary to acute alcohol withdrawal and unable to protect his airways, required intubation mechanical ventilation on 10/26/2023 Acute alcohol withdrawal with acute alcohol intoxication Acute pancreatitis, EtOH related. Improving today based on lower amylase and lower lipase Hypertensive urgency, resolved Abdominal pain, secondary to acute pancreatitis, resolved Acute kidney injury, resolved History of alcoholism Mild transaminitis, secondary to above, improving History of coronary artery disease Current everyday smoker Recommendation: Continue ventilatory support Continue sedation with propofol Continue enteral feeding/nutritional support Keep patient calm and sedated for now with propofol use Versed if necessary. Continue IV fluids Continue bicarb via orogastric tube. Continue GI prophylaxis Continue to hold heparin/Lovenox, mostly because of low platelet Continue to monitor in the ICU Aspiration precautions Continue Zosyn empirically. Patient is critically ill Critical care time is over 30 min Will continue to follow Time with Patient: Greater than 30
--- NOTE | 2023-10-27 15:00 | PN ---
PROGRESS NOTE DATE OF SERVICE: 10/27/2023 SUBJECTIVE: This 48-year-old gentleman admitted with alcohol withdrawal as well as acute pancreatitis, also had acute hypoxic respiratory failure. Overnight, the patient is to be intubated. The patient also had some post aspiration pneumonia also. The patient is sedated. The patient is currently on 400 tidal volume, 6% FiO2. The patient is on propofol drip at this time. The patient is also started on IV Zosyn. The cultures are negative so far. Chest x-ray reviewed personally. PAST MEDICAL HISTORY: Reviewed. REVIEW OF SYSTEMS: Could not be taken. CURRENT MEDICATIONS: Include Zosyn. PHYSICAL EXAMINATION: VITAL SIGNS: Pulse is 73, blood pressure 90/86, respirations 20, vent settings are noted as mentioned earlier. CARDIOVASCULAR: S1, S2. RESPIRATIONS: Few scattered rhonchi. ABDOMEN: Soft. NERVOUS SYSTEM: Sedated. LABORATORY DATA: Hemoglobin 9.4. Other labs are noted. ASSESSMENT: 1. Acute hypoxic respiratory failure with bilateral aspiration pneumonia, on mechanical ventilation. 2. Acute alcohol withdrawal and acute severe delirium tremens necessitating IV drips in the ICU. 3. Acute abdominal pain with acute alcoholic pancreatitis. 4. CAD history. 5. Hypertension. 6. History of nicotine dependence. 7. Multiple complex medical issues. RECOMMENDATIONS: Recommended to continue current management, continue symptomatic treatment. Continue with bronchodilators, continue with empiric antibiotics. Continue with mechanical ventilation. Follow the cultures. DVT prophylaxis. Overall prognosis guarded because of multiple complex medical issues. See orders for details. MMODL / IJN: [id number] /
[2023-10-27 18:24] LABS: Glucose,Whole Blood 98 mg/dL (70-110)
[2023-10-27 23:14] LABS: Glucose,Whole Blood 94 mg/dL (70-110)
[2023-10-28 05:13] LABS: Basophils % (A) 0 %; Eosinophils # (A) 0.1 k/uL (0-0.7); Eosinophils % (A) 2 %; HCT 28.5 % (39.0-53.0); HGB 8.9 gm/dL (13.0-17.5); Hypochromasia Slight; Lymphocytes # (A) 0.4 k/uL (1.0-4.8); Lymphocytes % (A) 11 %; MCH 32.4 pg (25.0-35.0); MCHC 31.1 g/dL (31.0-37.0); MCV 104.3 fL (80.0-100.0); Macrocytosis Slight; Mean Platelet Volume 10.5; Monocytes # (A) 0.5 k/uL (0-1.0); Monocytes % (A) 14 %; Neutrophils # (A) 2.7 k/uL (1.3-7.7); Neutrophils % (A) 71 %; RBC 2.74 m/uL (4.30-5.90); RDW 14.2 % (11.5-15.5); WBC 3.8 k/uL (3.8-10.6)
[2023-10-28 05:23] LABS: ABG HCO3 20 mmol/L (21-25); ABG Oxygen Saturation 99.6 % (94-97); ABG PCO2 37 mmHg (35-45); ABG PH 7.34 (7.35-7.45); ABG PO2 160 mmHg (83-108); ABG TCO2 21 mmol/L (19-24)
[2023-10-28 05:24] LABS: Allen Test Performed? YES
[2023-10-28 05:34] LABS: African American GFR (CKD) >90 (>60 ml/min/1.73 sqM); Anion Gap 8 mmol/L; Blood Urea Nitrogen 10 mg/dL (9-20); Calcium 7.8 mg/dL (8.4-10.2); Carbon Dioxide 17 mmol/L (22-30); Chloride 117 mmol/L (98-107); Glucose 91 mg/dL (74-99); Non-African American GFR(CKD) >90 (>60 ml/min/1.73 sqM); Potassium 3.7 mmol/L (3.5-5.1); Sodium 142 mmol/L (137-145)
[2023-10-28 05:42] LABS: Platelet Count 140 k/uL (150-450)
[2023-10-28] MEDS ORDERED: Potassium Replacement Protocol 1 EACH MISC MISCELLANE PRN (05:43)
[2023-10-28] MEDS: POTASSIUM BICARBONATE/CIT AC 20 MEQ TABLET.EFF NG-TUBE SCH (05:55)
[2023-10-28 06:01] LABS: Glucose,Whole Blood 190 mg/dL (70-110)
[2023-10-28 06:28] LABS: RBC Morphology Normal
[2023-10-28] MEDS: CLEVIDIPINE BUTYRATE 25 MG in EMPTY BAG 1 BAG IV SCH (08:11)
--- NOTE | 2023-10-28 08:35 | XR ---
EXAMINATION TYPE: XR abdomen 1V DATE OF EXAM: 10/28/2023 Comparison: None Clinical History: 48-year-old male high residuals, abd distention Findings: Chest reported separately NG tube side hole just below the GE junction level. Semiupright exam limits assessment of free intrap eritoneal air. Some scattered colonic air is present. No significant stool burden is seen. No dilated small bowel loops. No suspicious calcifications. Impression: Nonobstructive bowel gas pattern. Normal-appearing scattered colonic air. No significant stool burden .
--- NOTE | 2023-10-28 08:36 | XR ---
EXAMINATION TYPE: XR chest 1V portable DATE OF EXAM: 10/28/2023 Comparison: 10/27/2023 Clinical History: 48-year-old male Tube placement Findings: ET tube tip just below the level of the medial clavicular heads. NG tube sidehole just below the GE j unction level. Heart mildly enlarged. Mild interstitial prominence, small effusions, and patchy bibas ilar opacities remain. Impression: Similar exam, likely pulmonary vascular congestion along with small effusions with adjacent atelectas is and/or consolidation.
[2023-10-28] MEDS ORDERED: VANCOMYCIN IV PER PHARMACY 1 EACH MISC MISCELLANE PRN (11:32)
--- NOTE | 2023-10-28 12:37 | P.PN ---
Subjective Progress Note Date: 10/28/23 Principal diagnosis: Acute alcohol withdrawal Patient is a 48-year-old white male with past medical history significant for hypertension, coronary artery disease, current everyday smoker, and alcohol abuse. He was transferred from [facility] 10/22/2023 for acute panc reatitis. He was noted to be intoxicated on arrival to outside facility, with an alcohol level of 34 mg/dL, while at our facility developed impending acute alcohol withdrawal delirium tremens. He required ICU admission for Precedex infusion. Patient is currently lethargic and not a very good historian. After reviewing the medical records from the outside facility, it appears he presented with abdominal pain. He was also noted to have severely elevated lipase and amylase levels. An abdominal and pelvis CT was performed, which identified peripancreatic inflammatory stranding and fluid consistent with acute pancreatitis. No pseudocyst, abscess, or pancreatic necrosis. No gallstones or ductal dilation. There was decreased attenuation of the hepatic parenchyma, suggestive of fatty infiltration. Patient was dehdydrated and noted to have sustained an WILFRIDO. It appears he was fluid resuscitated with 2 L of crystalloid fluid. He was then transferred to [facility]. He was noted to be agitated and combative. He had received multiple doses of Ativan, I am told a total of 16 mg. He was also receiving Haldol. Despite this, he had sustained recorded CIWA scores greater than 28, and for this reason he was placed on a Precedex infusion and admitted to the intensive care unit. Most recent CBC from yesterday: WBC count 7.6, hemoglobin 13.9, hematocrit 42, platelets 110. Most recent CMP from yesterday: Sodium 138, potassium 4.4, chloride 108, serum bicarb 19, BUN 18, creatinine 1.13, glucose 94. AST 97, ALT 74, ALP 156, total bilirubin 1. Lipase 11,329 and amylase 1468. Patient is currently lethargic and not making much sense when talking. Unsure of when last drink was. Precedex is infusing at 0.4 mcg/kg/h. He does have bilateral upper extremity soft restraints on, which likely can be discontinued. Blood pressure is noted to be hypertensive, has received a clonidine 0.2 mg patch, which is fallen off and will be replaced. EKG shows normal sinus rhythm without any obvious acute ischemic changes. Patient's pain appears well-managed with current regimen of as needed Dilaudid. He does have some facial grimacing with palpation of the bilateral upper abdomen. Normal saline is infusing at 150 MLS per hour. Currently on room air, in no acute respiratory distress. Afebrile. He has been moved to room 262 in the intensive care unit. Patient was evaluated today on 10/25/2023, remains in the ICU, remains on Precedex at 1 mcg/kg/h. Remains on Cleviprex. Remains on Ativan intermittently and on Haldol. In spite of all of this the patient continues to have episodes of extreme agitation and restlessness. And seems to be delirious. Continues to have a sitter at bedside. His WBC is 7.8 hemoglobin 11.3 basic metabolic profile is normal renal profile is normal however his bicarb is 15, lipase is down to 164 today, it was 1668 yesterday, amylase is down to 112 from 598 yesterday obviously his acute pancreatitis is improving chest x-ray showed no evidence of active disease, minimal pulmonary vascular prominence Reevaluate today on 10/26/2023, patient remains in the ICU, he is on room air, continues to have intermittent episodes of extreme agitation, remains on Precedex at 1.4 mcg/kg/h, remains on Ativan intermittently and Haldol intermittently, nonetheless continues to have episodes of significant agitations. Patient is on the CIWA protocol, he seems to require suctioning of his oropharynx, purulent material is noted, patient does have gag with suctioning and able to protect his airways. But he has a very poor cough reflex. At any rate patient will need to be on oral medications, and I am recommending a nasogastric tube to be placed today, if the patient continues to do poorly may have to consider intubation and mechanical ventilation, however this will be the last resort. In the meantime I believe the patient will remain on the same medications he is presently on and will remain on the CIWA protocol. Needs definitely close monitoring in the ICU. Patient is purulent secretions I recommended empirically starting the patient on Zosyn. WBC count is 7.4 hemoglobin 11.3 basic metabolic profile is normal except for low potassium of 3.2 renal profile is normal lipase is down to 72 amylase is normal Patient was reevaluated today on 10/27/2023, patient received significant amount of sedation yesterday, and continued to be restless and agitated, at 1 point he desaturated, and he was gurgling with secretions, I was made aware of the patient and recommended intubation. Patient was intubated and placed on mechanical ventilation overnight, he is on assist-control rate of 20 tidal volume 400 FiO2 40% and PEEP of 5 ABG showed a pO2 of 131 pCO2 34 pH of 7.30 hence kept on the same ventilator settings. He is on propofol at 65 mcg/kg/min is also 1.9 normal saline at 125 cc/h. Patient is receiving bicarb orally for low bicarb. He is also on Zosyn empirically. Patient is also on enteral feeding. Today I went ahead and placed a right radial arterial line for hemodynamic monitoring and for frequent blood draws. WBC count is 5.9 hemoglobin is 9.4. Basic metabolic profile is normal except for bicarb of 14 patient has a hyperchloremic metabolic none anion gap metabolic acidosis. Chest x-ray showed pulmonary vascular congestion, patient received a dose of Lasix earlier this morning Patient was reevaluated today on 10/28/2023, remains in the ICU, intubated and mechanically ventilated. Patient is on assist-control rate of 20 tidal volume 400 FiO2 40% PEEP of 5 ABG showed a pO2 of 160 pCO2 37 pH of 7.34, I cut down hi s FiO2 down to 35%. Patient is receiving propofol at 55 mcg/kg/min, he is off norepinephrine, receiving 0.9 normal saline at 125 cc/h. Continues to have intermittent episodes of coffee-ground material in the nasogastric tube, hence nutrition/enteral feeding is presently on hold. Chest x-ray is showing some minimal vascular congestion along with small effusions and atelectasis patient remains on Zosyn empirically, he will receive Lasix 1 dose today 20 mg IV push. Patient continues to have significant amount of secretions he was given a trial off sedation patient was agitated, restless, and again significant amount of secretions were noted in the endotracheal tube, hence will hold on weaning today and extubation. WBC count is 3.8 hemoglobin 8.9. Basic metabolic profile is normal, renal profile is normal Objective - Vital Signs Vital signs: Vital Signs Temp 98.4 F 10/28/23 08:00 Pulse 98 10/28/23 12:03 Resp 20 10/28/23 11:00 BP 119/78 04/20/24 11:00 Pulse Ox 100 10/28/23 11:00 FiO2 35 10/28/23 11:43 Intake & Output 10/27/23 10/28/23 10/28/23 18:59 06:59 18:59 Intake Total 2168.613 2014.173 501.010 Output Total 2100 1205 125 Balance 68.613 809.173 376.010 Weight 74.5 kg Intake: IV 1775 1725 425 Magnesium Sulfate-D5w Pmx 200 1 gm In Dextrose/Water 1 100ml.bag @ 100 mls/hr IVPB Q1H [facility] Rx#: [id number] Piperacillin-Tazobactam 3 200 100 50 .375 gm In Sodium Chloride 0.9% 100 ml @ 25 mls/hr IVPB Q8HR [facility] Rx# :[id number] Sodium Chloride 0.9% 1, 1375 1625 375 000 ml @ 125 mls/hr IV . Q8H [facility] Rx#:[id number] Intake, IV Titration 393.613 289.173 76.010 Amount Norepinephrine 4 mg In 115.577 Sodium Chloride 0.9% 250 ml @ 0.05 MCG/KG/MIN 13. 164 mls/hr IV .[id number] [facility] Rx#:[id number] propofoL 1,000 mg In 278.036 289.173 76.010 Empty Bag 1 bag @ 15 MCG/ KG/MIN 6.219 mls/hr IV . Q16H5M [facility] Rx#:[id number] Output: Gastric Drainage 350 300 Urine 1750 905 125 Other: Voiding Method Indwelling Catheter Indwelling Catheter Indwelling Catheter # Bowel Movements 0 1 ABP, PAP, CO, CI - Last Documented Arterial Blood Pressure 153/83 - Exam GENERAL EXAM: Revealed 48-year-old white male, intubated, sedated, calm, not in distress. Maintained on propofol, at 55 mcg/kg/min HEAD: Normocephalic and atraumatic EYES: Normal reaction of pupils, equal size. NOSE: Clear with pink turbinates. THROAT: No erythema or exudates. Endotracheal tube and orogastric tube are intact. Patient had coffee-ground material in the orogastric tube continues to have significant output from the orogastric tube, abdominal films are normal nonspecific pattern NECK: No masses, no JVD. CHEST: No chest wall deformity. Symmetrical chest wall expansion LUNGS: Scattered rhonchi noted bilaterally, no wheezing. CVS: S1 and S2 normal with no audible murmur, regular rhythm. No extra heart sounds ABDOMEN: Soft nontender no megaly no rebound no guarding SKIN: No rashes CENTRAL NERVOUS SYSTEM: Not assessed, fully sedated. Off sedation I was not notified that the patient was extremely restless agitated and had significant amount of secretions in the endotracheal tube EXTREMITIES: No clubbing edema or cyanosis - Labs CBC & Chem 7: 10/28/23 04:50 10/28/23 04:50 Labs: Abnormal Lab Results - Last 24 Hours (Table) 10/28/23 10/28/23 10/28/23 Range/Units 04:50 04:50 05:20 RBC 2.74 L (4.30-5.90) m/uL Hgb 8.9 L (13.0-17.5) gm/dL Hct 28.5 L (39.0-53.0) % MCV 104.3 H (80.0-100.0) fL Plt Count 140 L D (150-450) k/uL Lymphocytes # 0.4 L (1.0-4.8) k/uL ABG pH 7.34 L (7.35-7.45) ABG pO2 160 H (83-108) mmHg ABG HCO3 20 L (21-25) mmol/L ABG O2 Saturation 99.6 H (94-97) % Chloride 117 H (98-107) mmol/L Carbon Dioxide 17 L (22-30) mmol/L POC Glucose (mg/dL) (70-110) mg/dL Calcium 7.8 L (8.4-10.2) mg/dL 10/28/23 Range/Units 06:00 RBC (4.30-5.90) m/uL Hgb (13.0-17.5) gm/dL Hct (39.0-53.0) % MCV (80.0-100.0) fL Plt Count (150-450) k/uL Lymphocytes # (1.0-4.8) k/uL ABG pH (7.35-7.45) ABG pO2 (83-108) mmHg ABG HCO3 (21-25) mmol/L ABG O2 Saturation (94-97) % Chloride (98-107) mmol/L Carbon Dioxide (22-30) mmol/L POC Glucose (mg/dL) 190 H (70-110) mg/dL Calcium (8.4-10.2) mg/dL Microbiology - Last 24 Hours (Table) 10/26/23 19:25 Gram Stain - Preliminary Sputum Sputum Culture - Preliminary Presumptive Staph aureus 10/26/23 14:26 Blood Culture - Preliminary Blood 10/26/23 14:26 Blood Culture - Preliminary Blood Assessment and Plan Assessment: Impression: Acute hypoxic respiratory failure secondary to acute alcohol withdrawal and unable to protect his airways, required intubation mechanical ventilation on 10/26/2023 Acute alcohol withdrawal with acute alcohol intoxication Acute pancreatitis, EtOH related. Resolved Hypertensive urgency, resolved, not requiring Cleviprex anymore since he was intubated and placed on propofol for Abdominal pain, secondary to acute pancreatitis, resolved Acute kidney injury, resolved History of alcoholism Mild transaminitis History of coronary artery disease Current everyday smoker Recommendation: Continue ventilatory support Will give the patient a trial of sedation interruption and assessment of mental status as well as assessment for possible extubation Hold enteral feeding as long as the patient has significant output from the orogastric tube. Continue IV fluids Continue bicarb via orogastric tube. His bicarb today is 17. Continue GI prophylaxis Please start patient on Lovenox since his platelets have recovered to up to 140,000 today Continue to monitor in the ICU Aspiration precautions Continue Zosyn empirically. Patient is critically ill Critical care time is over 30 min Will continue to follow Time with Patient: Greater than 30
[2023-10-28] MEDS: VANCOMYCIN 1,250 MG in SODIUM CHLORIDE 0.9% 250 ML IVPB SCH (13:03)
[2023-10-28] MEDS: ENOXAPARIN 40 MG/0.4 ML SYRINGE SQ SCH (13:04)
[2023-10-28 13:12] LABS: Glucose,Whole Blood 86 mg/dL (70-110)
--- NOTE | 2023-10-28 15:48 | CA ---
Transthoracic Echo Report Name: Federico Franks Age: 48 Gender: M : 1975 Exam Date: 10/28/2023 14:14 Exam Location: [place] [facility] Ht (in): 68 Wt (lb): 164 Ordering Physician: Michael Hansen MD Attending/Referring Phys: Saida Corado MD Speech Therapy Teacher Mallory Mclain, [facility] Procedure CPT: Indications: chf Cardiac Hx: Technical Quality: Fair Contrast 1: Total Dose (mL): Contrast 2: Total Dose (mL): MEASUREMENTS (Male / Female) Normal Values 2D ECHO LV Diastolic Diameter PLAX 4.7 cm 4.2 - 5.9 / 3.9 - 5.3 cm LV Systolic Diameter PLAX 2.7 cm IVS Diastolic Thickness 1.1 cm 0.6 - 1.0 / 0.6 - 0.9 cm LVPW Diastolic Thickness 1.1 cm 0.6 - 1.0 / 0.6 - 0.9 cm LV Relative Wall Thickness 0.5 RV Internal Dim ED PLAX 3.2 cm LA Systolic Diameter LX 3.5 cm 3.0 - 4.0 / 2.7 - 3.8 cm LA Volume 45.2 cm??? 18 - 58 / 22 - 52 cm??? LA Volume Index 23.8 cm???/m??? 16 - 28 cm???/m??? M-MODE Aortic Root Diameter MM 3.6 cm MV E Point Septal Separation 0.6 cm AV Cusp Separation MM 2.2 cm DOPPLER AV Peak Velocity 116.9 cm/s AV Peak Gradient 5.5 mmHg MV Area PHT 4.4 cm??? Mitral E Point Velocity 98.3 cm/s Mitral A Point Velocity 70.6 cm/s Mitral E to A Ratio 1.4 MV Deceleration Time 171.1 ms FINDINGS Left Ventricle Left ventricular ejection fraction is estimated at 55-60 %. Left ventricular cavity size normal. Left ventricular wall thickness normal. No obvious regional wall motion abnormalities. Right Ventricle Normal right ventricular size. Unable to estimate the right ventricular systolic pressure. Right Atrium Right atrium not well visualized. Left Atrium Normal left atrial size. Mitral Valve Structurally normal mitral valve. No mitral stenosis, regurgitation or prolapse. Aortic Valve Trileaflet aortic valve. No aortic valve stenosis or regurgitation. Tricuspid Valve Structurally normal tricuspid valve. No tricuspid regurgitation. Pulmonic Valve Pulmonic valve not well visualized. Pericardium No pericardial effusion. Aorta Normal size aortic root and proximal ascending aorta. CONCLUSIONS Normal LV systolic function Previewed by: Dr. Tristen Mackey MD (Electronically Signed) Final Date: 28 October 2023 15:48
[2023-10-28 17:34] LABS: Glucose,Whole Blood 80 mg/dL (70-110)
[2023-10-28 23:50] LABS: Glucose,Whole Blood 88 mg/dL (70-110)
[2023-10-29 05:44] LABS: HGB 9.7 gm/dL (13.0-17.5); Hypochromasia Moderate; MCH 32.4 pg (25.0-35.0); MCHC 31.3 g/dL (31.0-37.0); MCV 103.6 fL (80.0-100.0); Macrocytosis Slight; Mean Platelet Volume 9.6; Platelet Count 191 k/uL (150-450); RDW 14.3 % (11.5-15.5); WBC 3.9 k/uL (3.8-10.6)
[2023-10-29 05:55] LABS: Glucose,Whole Blood 85 mg/dL (70-110)
[2023-10-29 05:56] LABS: ALT 11 U/L (4-49); AST 15 U/L (17-59); African American GFR (CKD) >90 (>60 ml/min/1.73 sqM); Albumin 2.2 g/dL (3.5-5.0); Alkaline Phosphatase 79 U/L (38-126); Anion Gap 4 mmol/L; Blood Urea Nitrogen 7 mg/dL (9-20); Calcium 8.2 mg/dL (8.4-10.2); Carbon Dioxide 20 mmol/L (22-30); Chloride 118 mmol/L (98-107); Glucose 80 mg/dL (74-99); Non-African American GFR(CKD) >90 (>60 ml/min/1.73 sqM); Potassium 3.9 mmol/L (3.5-5.1); Sodium 142 mmol/L (137-145); Total Bilirubin 0.4 mg/dL (0.2-1.3); Total Protein 4.7 g/dL (6.3-8.2)
[2023-10-29] MEDS: POTASSIUM BICARBONATE/CIT AC 20 MEQ TABLET.EFF NG-TUBE SCH (06:05)
[2023-10-29 06:24] LABS: ABG Base Excess -5.7 mmol/L; ABG HCO3 20 mmol/L (21-25); ABG Oxygen Saturation 95.9 % (94-97); ABG PCO2 34 mmHg (35-45); ABG PH 7.37 (7.35-7.45); ABG PO2 70 mmHg (83-108); ABG TCO2 21 mmol/L (19-24)
--- NOTE | 2023-10-29 08:23 | XR ---
EXAMINATION TYPE: XR chest 1V portable DATE OF EXAM: 10/29/2023 Comparison: 10/28/2023 Clinical History: 48-year-old male Tube placement Findings: ET tube tip just below the level of the medial clavicular head. NG tube sidehole at the GE junction l evel. Advance by 4 cm so that it enters the stomach completely. Heart borderline in size. Patchy bila teral lower lung opacities with small effusions relatively similar. Impression: 1. Advance the NG tube by 4 cm so that the sidehole completely enters the stomach. 2. Similar small bilateral pleural effusions with prominent bilateral lower lung opacities.
--- NOTE | 2023-10-29 08:24 | PN ---
PROGRESS NOTE DATE OF SERVICE: 10/28/2023 SUBJECTIVE: This is a 48-year-old gentleman who was admitted with alcohol intoxication, also acute hypoxic respirations, mechanically ventilated at this time. The patient is off sedation. The chest x-ray showed increased bronchovascular markings. The patient is on broad-spectrum IV antibiotics. Multiple consultants are following the patient closely. The patient has received Lasix. PAST MEDICAL HISTORY: Reviewed. REVIEW OF SYSTEMS: A 14-point review of systems is negative except as mentioned earlier. CURRENT MEDICATIONS: Reviewed PHYSICAL EXAMINATION: VITAL SIGNS: Pulse is 97, blood pressure 130/71, respirations 20. CHEST: Few scattered rhonchi and crackles. ABDOMEN: Soft. NERVOUS SYSTEM: Nonfocal. LABORATORY DATA: Hemoglobin is 8, rest of labs are noted. ASSESSMENT: 1. Acute hypoxic respiratory failure with bilateral aspiration pneumonia, on mechanical ventilation. 2. Rule out fluid overload. 3. Acute alcohol withdrawal and acute severe delirium tremens necessitating IV drips in the ICU. 4. Acute abdominal with acute alcoholic pancreatitis. 5. CAD history. 6. Hypertension. 7. History of nicotine dependence. 8. Multiple complex medical issues. RECOMMENDATIONS: Recommended to continue current management, continue symptomatic treatment. Further weaning attempts by Pulmonary. I will recommend Lasix that has been given. I would also recommend BNP and a 2D echo with Doppler also to complete the workup. Other than that, repeat chest x-ray. Overall prognosis continues to be extremely guarded. Hydralazine p.r.n. for blood pressure, hypertension. Prognosis extremely guarded because of multiple complex medical issues and further recommendations to follow. MMODL / IJN: [id number] / RADHA
[2023-10-29 08:43] LABS: Band Neutrophils % 1 %; Lymphocytes # (M) 0.55 k/uL (1.0-4.8); Metamyelocytes # (M) 0.08 k/uL (0); Metamyelocytes % 2 %; Monocytes # (M) 0.66 k/uL (0-1.0); Myelocytes # (M) 0.04 k/uL (0); Myelocytes % 1 %; Neutrophils % (M) 61 %; Nucleated Red Blood Cells 0 /100 WBC (0-0); Total Cells Counted 200
[2023-10-29] MEDS: LORazepam 2 MG/ML INJ IV PRN (11:49)
[2023-10-29 12:23] LABS: Glucose,Whole Blood 97 mg/dL (70-110)
--- NOTE | 2023-10-29 13:44 | XR ---
EXAMINATION TYPE: XR chest 1V portable DATE OF EXAM: 10/29/2023 Comparison: 10/29/2023 Clinical History: 48-year-old male endotracheal tube placement NG tube placement. Findings: ET and NG tubes are satisfactory. Heart is moderately enlarged. Uncoiling mid and lower lung opacitie s. They may be slightly increased. Impression: 1. Satisfactory interval repositioning of the ET and NG tubes. 2. Ongoing mid and lower lung opacities, slightly increased. Probably partially layering [id number] erate pleural effusions with adjacent atelectasis and/or consolidation. Consider CHF as an etiology.
--- NOTE | 2023-10-29 14:39 | P.PN ---
Subjective Progress Note Date: 10/29/23 Principal diagnosis: Acute alcohol withdrawal Patient is a 48-year-old white male with past medical history significant for hypertension, coronary artery disease, current everyday smoker, and alcohol abuse. He was transferred from [facility] 10/22/2023 for acute panc reatitis. He was noted to be intoxicated on arrival to outside facility, with an alcohol level of 34 mg/dL, while at our facility developed impending acute alcohol withdrawal delirium tremens. He required ICU admission for Precedex infusion. Patient is currently lethargic and not a very good historian. After reviewing the medical records from the outside facility, it appears he presented with abdominal pain. He was also noted to have severely elevated lipase and amylase levels. An abdominal and pelvis CT was performed, which identified peripancreatic inflammatory stranding and fluid consistent with acute pancreatitis. No pseudocyst, abscess, or pancreatic necrosis. No gallstones or ductal dilation. There was decreased attenuation of the hepatic parenchyma, suggestive of fatty infiltration. Patient was dehdydrated and noted to have sustained an WILFRIDO. It appears he was fluid resuscitated with 2 L of crystalloid fluid. He was then transferred to [facility]. He was noted to be agitated and combative. He had received multiple doses of Ativan, I am told a total of 16 mg. He was also receiving Haldol. Despite this, he had sustained recorded CIWA scores greater than 28, and for this reason he was placed on a Precedex infusion and admitted to the intensive care unit. Most recent CBC from yesterday: WBC count 7.6, hemoglobin 13.9, hematocrit 42, platelets 110. Most recent CMP from yesterday: Sodium 138, potassium 4.4, chloride 108, serum bicarb 19, BUN 18, creatinine 1.13, glucose 94. AST 97, ALT 74, ALP 156, total bilirubin 1. Lipase 11,329 and amylase 1468. Patient is currently lethargic and not making much sense when talking. Unsure of when last drink was. Precedex is infusing at 0.4 mcg/kg/h. He does have bilateral upper extremity soft restraints on, which likely can be discontinued. Blood pressure is noted to be hypertensive, has received a clonidine 0.2 mg patch, which is fallen off and will be replaced. EKG shows normal sinus rhythm without any obvious acute ischemic changes. Patient's pain appears well-managed with current regimen of as needed Dilaudid. He does have some facial grimacing with palpation of the bilateral upper abdomen. Normal saline is infusing at 150 MLS per hour. Currently on room air, in no acute respiratory distress. Afebrile. He has been moved to room 262 in the intensive care unit. Patient was evaluated today on 10/25/2023, remains in the ICU, remains on Precedex at 1 mcg/kg/h. Remains on Cleviprex. Remains on Ativan intermittently and on Haldol. In spite of all of this the patient continues to have episodes of extreme agitation and restlessness. And seems to be delirious. Continues to have a sitter at bedside. His WBC is 7.8 hemoglobin 11.3 basic metabolic profile is normal renal profile is normal however his bicarb is 15, lipase is down to 164 today, it was 1668 yesterday, amylase is down to 112 from 598 yesterday obviously his acute pancreatitis is improving chest x-ray showed no evidence of active disease, minimal pulmonary vascular prominence Reevaluate today on 10/26/2023, patient remains in the ICU, he is on room air, continues to have intermittent episodes of extreme agitation, remains on Precedex at 1.4 mcg/kg/h, remains on Ativan intermittently and Haldol intermittently, nonetheless continues to have episodes of significant agitations. Patient is on the CIWA protocol, he seems to require suctioning of his oropharynx, purulent material is noted, patient does have gag with suctioning and able to protect his airways. But he has a very poor cough reflex. At any rate patient will need to be on oral medications, and I am recommending a nasogastric tube to be placed today, if the patient continues to do poorly may have to consider intubation and mechanical ventilation, however this will be the last resort. In the meantime I believe the patient will remain on the same medications he is presently on and will remain on the CIWA protocol. Needs definitely close monitoring in the ICU. Patient is purulent secretions I recommended empirically starting the patient on Zosyn. WBC count is 7.4 hemoglobin 11.3 basic metabolic profile is normal except for low potassium of 3.2 renal profile is normal lipase is down to 72 amylase is normal Patient was reevaluated today on 10/27/2023, patient received significant amount of sedation yesterday, and continued to be restless and agitated, at 1 point he desaturated, and he was gurgling with secretions, I was made aware of the patient and recommended intubation. Patient was intubated and placed on mechanical ventilation overnight, he is on assist-control rate of 20 tidal volume 400 FiO2 40% and PEEP of 5 ABG showed a pO2 of 131 pCO2 34 pH of 7.30 hence kept on the same ventilator settings. He is on propofol at 65 mcg/kg/min is also 1.9 normal saline at 125 cc/h. Patient is receiving bicarb orally for low bicarb. He is also on Zosyn empirically. Patient is also on enteral feeding. Today I went ahead and placed a right radial arterial line for hemodynamic monitoring and for frequent blood draws. WBC count is 5.9 hemoglobin is 9.4. Basic metabolic profile is normal except for bicarb of 14 patient has a hyperchloremic metabolic none anion gap metabolic acidosis. Chest x-ray showed pulmonary vascular congestion, patient received a dose of Lasix earlier this morning Patient was reevaluated today on 10/28/2023, remains in the ICU, intubated and mechanically ventilated. Patient is on assist-control rate of 20 tidal volume 400 FiO2 40% PEEP of 5 ABG showed a pO2 of 160 pCO2 37 pH of 7.34, I cut down hi s FiO2 down to 35%. Patient is receiving propofol at 55 mcg/kg/min, he is off norepinephrine, receiving 0.9 normal saline at 125 cc/h. Continues to have intermittent episodes of coffee-ground material in the nasogastric tube, hence nutrition/enteral feeding is presently on hold. Chest x-ray is showing some minimal vascular congestion along with small effusions and atelectasis patient remains on Zosyn empirically, he will receive Lasix 1 dose today 20 mg IV push. Patient continues to have significant amount of secretions he was given a trial off sedation patient was agitated, restless, and again significant amount of secretions were noted in the endotracheal tube, hence will hold on weaning today and extubation. WBC count is 3.8 hemoglobin 8.9. Basic metabolic profile is normal, renal profile is normal Patient was reevaluated today on 10/29/2019, remains in the ICU, intubated and me chanically ventilated. Patient was extremely restless and agitated last night on lower dose of sedation, hence his propofol was increased to as high as 70 mcg/kg/min at present. He is requiring Cleviprex at 10 mg/h for tachycardia. He is on IV fluid 0.9 normal saline at 125 cc/h. Continues to have lots of secretions via the endotracheal tube. Patient is to be restarted back on tube feeding, his positioning of the endotracheal tube and nasogastric tube will be adjusted today. Remains on Zosyn his vent settings are 20/400/35%/5 ABG showed a pO2 of 78 pCO2 34 pH of 7.37 chest x-ray today is noted to show mid and lower lung opacities, slightly increased and small pleural effusions. Patient has atelectasis, and may have a component of fluid overload, will continue intermittent diuresis on this patient, patient did receive 40 mg of Lasix IV push today. Cardiogram on this admission showed good LV function ejection fraction of 55 to 60%, and no evidence of valvular heart disease Objective - Vital Signs Vital signs: Vital Signs Temp 100.0 F H 10/29/23 12:00 Pulse 98 10/29/23 13:00 Resp 18 10/29/23 13:00 BP 135/90 10/29/23 13:00 Pulse Ox 98 10/29/23 13:00 FiO2 35 10/29/23 12:00 Intake & Output 10/28/23 10/29/23 10/29/23 18:59 06:59 18:59 Intake Total 7182.452 0538.256 1063.251 Output Total 860 910 975 Balance 2792.234 4844.256 88.251 Intake: IV 1775 1975 725 Piperacillin-Tazobactam 3 150 100 100 .375 gm In Sodium Chloride 0.9% 100 ml @ 25 mls/hr IVPB Q8HR [facility] Rx# :[id number] Sodium Chloride 0.9% 1, 1375 1625 625 000 ml @ 125 mls/hr IV . Q8H [facility] Rx#:[id number] Vancomycin 1,250 mg In 250 250 Sodium Chloride 0.9% 250 ml @ 125 mls/hr IVPB Q8H [facility] Rx#:[id number] Intake, IV Titration 195.899 263.256 338.251 Amount Clevidipine Butyrate 25 36.734 83.467 mg In Empty Bag 1 bag @ 1 MG/HR 2 mls/hr IV .Q24H [facility] Rx#:[id number] propofoL 1,000 mg In 195.899 226.522 254.784 Empty Bag 1 bag @ 15 MCG/ KG/MIN 6.219 mls/hr IV . Q16H5M [facility] Rx#:[id number] Output: Urine 860 910 975 Other: Voiding Method Indwelling Catheter Indwelling Catheter Indwelling Catheter ABP, PAP, CO, CI - Last Documented Arterial Blood Pressure 117/68 - Exam GENERAL EXAM: Revealed 48-year-old white male, intubated, sedated, calm, not in distress. Maintained on propofol, at 70 mcg/kg/min HEAD: Normocephalic and atraumatic EYES: Normal reaction of pupils, equal size. NOSE: Clear with pink turbinates. THROAT: No erythema or exudates. Endotracheal tube and orogastric tube are intact. Patient had coffee-ground material in the orogastric tube continues to have significant output from the orogastric tube, abdominal films are normal nonspecific pattern NECK: No masses, no JVD. CHEST: No chest wall deformity. Symmetrical chest wall expansion LUNGS: Scattered rhonchi noted bilaterally, no wheezing. CVS: S1 and S2 normal with no audible murmur, regular rhythm. No extra heart sounds ABDOMEN: Soft nontender no megaly no rebound no guarding SKIN: No rashes CENTRAL NERVOUS SYSTEM: Not assessed, fully sedated. Last night, patient was extremely agitated requiring more sedation and propofol increased to 70 mcg/kg/min EXTREMITIES: No clubbing edema or cyanosis - Labs CBC & Chem 7: 10/29/23 04:45 10/29/23 04:45 Labs: Abnormal Lab Results - Last 24 Hours (Table) 10/29/23 10/29/23 10/29/23 Range/Units 04:45 04:45 06:18 RBC 3.00 L (4.30-5.90) m/uL Hgb 9.7 L (13.0-17.5) gm/dL Hct 31.0 L (39.0-53.0) % MCV 103.6 H (80.0-100.0) fL Lymphocytes # (Manual) 0.55 L (1.0-4.8) k/uL Metamyelocytes # (Man) 0.08 H (0) k/uL Myelocytes # (Manual) 0.04 H (0) k/uL ABG pCO2 34 L (35-45) mmHg ABG pO2 70 L (83-108) mmHg ABG HCO3 20 L (21-25) mmol/L Chloride 118 H (98-107) mmol/L Carbon Dioxide 20 L (22-30) mmol/L BUN 7 L (9-20) mg/dL Creatinine 0.57 L (0.66-1.25) mg/dL Calcium 8.2 L (8.4-10.2) mg/dL AST 15 L (17-59) U/L Total Protein 4.7 L (6.3-8.2) g/dL Albumin 2.2 L (3.5-5.0) g/dL Microbiology - Last 24 Hours (Table) 10/26/23 19:25 Gram Stain - Final Sputum Sputum Culture - Final Staphylococcus aureus 10/26/23 14:26 Blood Culture - Preliminary Blood 10/26/23 14:26 Blood Culture - Preliminary Blood Assessment and Plan Assessment: Impression: Acute hypoxic respiratory failure secondary to acute alcohol withdrawal and unable to protect his airways, required intubation mechanical ventilation on Acute alcohol withdrawal with acute alcohol intoxication Acute pancreatitis, EtOH related. Resolved Hypertensive urgency, resolved, not requiring Cleviprex anymore since he was intubated and placed on propofol for Abdominal pain, secondary to acute pancreatitis, resolved Acute kidney injury, resolved History of alcoholism Mild transaminitis History of coronary artery disease Current everyday smoker Recommendation: Continue ventilatory support Ready for weaning today mostly because of his significant endotracheal tube secretions and the patient is still agitated even on lower doses of propofol. Start enteral feeding now that his nodule is becoming less and less but will start feeding slowly Continue IV fluids Continue bicarb via orogastric tube. Bicarb level is 20 today. Continue GI prophylaxis Continue Lovenox, platelets have improved Continue to monitor in the ICU Aspiration precautions Continue Zosyn empirically. Intermittent gentle diuresis. IV fluid to KVO Patient is critically ill Updated his mother yesterday on his condition Critical care time is over 30 min Will continue to follow Time with Patient: Greater than 30
[2023-10-29] MEDS: FUROSEMIDE 10 MG/ML 4 ML VIAL IV STA (15:27)
[2023-10-29 18:51] LABS: Glucose,Whole Blood 99 mg/dL (70-110)
[2023-10-29] MEDS: VANCOMYCIN TROUGH DUE 1 EACH MISC MISCELLANE ONE (19:07)
[2023-10-29 23:02] LABS: Glucose,Whole Blood 97 mg/dL (70-110)
--- NOTE | 2023-10-29 23:54 | PN ---
PROGRESS NOTE DATE OF SERVICE: 10/29/2023 SUBJECTIVE: This 48-year-old gentleman admitted with acute pancreatitis, acute delirium tremens, on mechanical ventilation. Currently, Dr. Trujillo has attempted to wean off, but the patient is fighting the ventilator apparently, the patient is agitated. The patient is on max dose propofol at this time. Most recent chest x-ray which I reviewed showed increased bronchovascular markings and some evidence of fluid overload also and infiltrates. PAST MEDICAL HISTORY: Reviewed. REVIEW OF SYSTEMS: A 14-point review is negative except as mentioned earlier. CURRENT MEDICATIONS: Reviewed include Pulmicort. Dose and rest of medications reviewed. PHYSICAL EXAMINATION: VITAL SIGNS: Pulse is 98, blood pressure 130/90, respirations 18. CHEST: Few scattered rhonchi and crackles. ABDOMEN: Soft. NERVOUS SYSTEM: Nonfocal. LABORATORY DATA: Reviewed. White count is normal. Sputum cultures, Staph aureus which is MSSA. ASSESSMENT: 1. Acute hypoxic respiratory failure with bilateral aspiration pneumonia, on mechanical ventilation. 2. MSSA from the sputum. 3. Rule out fluid overload. 4. Acute alcohol withdrawal and acute delirium tremens, severe, necessitating IV drips in the ICU. 5. Acute abdominal pain with acute alcoholic pancreatitis, present on admission. 6. Coronary artery disease history. 7. Hypertension. 8. History of nicotine dependence. 9. Multiple complex medical issues. RECOMMENDATIONS AND DISCUSSION: I recommend to continue current medications, continue symptomatic treatment. Continue the antibiotics. Otherwise, monitor fluid balance closely. Closely follow with Dr. Trujillo. A 2D echo done by Cardiology showed normal LV function. Guarded prognosis. Further recommendations to follow. See orders for details. DVT prophylaxis. MMODL / IJN: [id number] /
[2023-10-30 04:52] LABS: HCT 31.4 % (39.0-53.0); HGB 10.1 gm/dL (13.0-17.5); Hypochromasia Slight; MCH 32.6 pg (25.0-35.0); MCV 101.7 fL (80.0-100.0); Macrocytosis Slight; Platelet Count 231 k/uL (150-450); RBC 3.09 m/uL (4.30-5.90); RDW 14.3 % (11.5-15.5); WBC 5.7 k/uL (3.8-10.6)
[2023-10-30 05:02] LABS: ALT 10 U/L (4-49); AST 14 U/L (17-59); African American GFR (CKD) >90 (>60 ml/min/1.73 sqM); Albumin 2.4 g/dL (3.5-5.0); Alkaline Phosphatase 78 U/L (38-126); Amylase 50 U/L (30-110); Anion Gap 4 mmol/L; Blood Urea Nitrogen 6 mg/dL (9-20); Calcium 8.7 mg/dL (8.4-10.2); Carbon Dioxide 25 mmol/L (22-30); Chloride 111 mmol/L (98-107); Glucose 103 mg/dL (74-99); Lipase 155 U/L (23-300); Non-African American GFR(CKD) >90 (>60 ml/min/1.73 sqM); Potassium 3.4 mmol/L (3.5-5.1); Sodium 140 mmol/L (137-145); Total Bilirubin 0.5 mg/dL (0.2-1.3)
[2023-10-30 05:46] LABS: Band Neutrophils % 6 %; Eosinophils # (M) 0.11 k/uL (0-0.7); Lymphocytes # (M) 1.37 k/uL (1.0-4.8); Metamyelocytes # (M) 0.06 k/uL (0); Metamyelocytes % 1 %; Monocytes # (M) 0.23 k/uL (0-1.0); Myelocytes # (M) 0.06 k/uL (0); Myelocytes % 1 %; Neutrophils % (M) 62 %; Nucleated Red Blood Cells 0 /100 WBC (0-0); Total Cells Counted 200
[2023-10-30 05:51] LABS: ABG Base Excess 1.5 mmol/L; ABG HCO3 26 mmol/L (21-25); ABG Oxygen Saturation 97.8 % (94-97); ABG PCO2 39 mmHg (35-45); ABG PH 7.43 (7.35-7.45); ABG PO2 87 mmHg (83-108); ABG TCO2 27 mmol/L (19-24); Allen Test Performed? Yes
[2023-10-30 05:54] LABS: Glucose,Whole Blood 100 mg/dL (70-110)
[2023-10-30] MEDS: POTASSIUM BICARBONATE/CIT AC 20 MEQ TABLET.EFF NG-TUBE SCH ×2 (06:29→12:44)
--- NOTE | 2023-10-30 08:33 | XR ---
EXAMINATION TYPE: XR chest 1V portable DATE OF EXAM: 10/30/2023 Comparison: 10/29/2023 Clinical History: 48-year-old male CHF Findings: ET tube tip estimated 1.9 cm from the paul. NG tube courses below the diaphragm. Heart is mildly en larged. Worsening bilateral patchy and interstitial opacities. Ongoing small bilateral pleural effusi ons. Impression: 1. Worsening interstitial and patchy opacities bilaterally. Ongoing small effusions. 2. ET tube tip estimated 1.9 cm from the paul. Attention on follow-up.
--- NOTE | 2023-10-30 11:56 | P.PN ---
Subjective Progress Note Date: 10/30/23 Principal diagnosis: Respiratory failure. Patient is a 48-year-old white male with past medical history significant for hypertension, coronary artery disease, current everyday smoker, and alcohol abuse. He was transferred from [facility] 10/22/2023 for acute pancreatitis. He was noted to be intoxicated on arrival to outside facility, with an alcohol level of 34 mg/dL, while at our facility developed impending acute alcohol withdrawal delirium tremens. He required ICU admission for Precedex infusion. Patient is currently lethargic and not a very good historian . After reviewing the medical records from the outside facility, it appears he presented with abdominal pain. He was also noted to have severely elevated lipase and amylase levels. An abdominal and pelvis CT was performed, which identified peripancreatic inflammatory stranding and fluid consistent with acute pancreatitis. No pseudocyst, abscess, or pancreatic necrosis. No gallstones or ductal dilation. There was decreased attenuation of the hepatic parenchyma, suggestive of fatty infiltration. Patient was dehdydrated and noted to have sustained an WILFRIDO. It appears he was fluid resuscitated with 2 L of crystalloid fluid. He was then transferred to [facility]. He was noted to be steffany tated and combative. He had received multiple doses of Ativan, I am told a total of 16 mg. He was also receiving Haldol. Despite this, he had sustained recorded CIWA scores greater than 28, and for this reason he was placed on a Precedex infusion and admitted to the intensive care unit. Most recent CBC from yesterday: WBC count 7.6, hemoglobin 13.9, hematocrit 42, platelets 110. Most recent CMP from yesterday: Sodium 138, potassium 4.4, chloride 108, serum bicarb 19, BUN 18, creatinine 1.13, glucose 94. AST 97, ALT 74, ALP 156, total bilirubin 1. Lipase 11,329 and amylase 1468. Patient is currently lethargic and not making much sense when talking. Unsure of when last drink was. Precedex is infusing at 0.4 mcg/kg/h. He does have bilateral upper extremity soft restraints on, which likely can be discontinued. Blood pressure is noted to be hypertensive, has received a clonidine 0.2 mg patch, which is fallen off and will be replaced. EKG shows normal sinus rhythm without any obvious acute ischemic changes. Patient's pain appears well-managed with current regimen of as needed Dilaudid. He does have some facial grimacing with palpation of the bilateral upper abdomen. Normal saline is infusing at 150 MLS per hour. Currently on room air, in no acute respiratory distress. Afebrile. He has been moved to room 262 in the intensive care unit. Patient was evaluated today on 10/25/2023, remains in the ICU, remains on Precedex at 1 mcg/kg/h. Remains on Cleviprex. Remains on Ativan intermittently and on Haldol. In spite of all of this the patient continues to have episodes of extreme agitation and restlessness. And seems to be delirious. Continues to have a sitter at bedside. His WBC is 7.8 hemoglobin 11.3 basic metabolic profile is normal renal profile is normal however his bicarb is 15, lipase is down to 164 today, it was 1668 yesterday, amylase is down to 112 from 598 yesterday obviously his acute pancreatitis is improving chest x-ray showed no evidence of active disease, minimal pulmonary vascular prominence Reevaluate today on 10/26/2023, patient remains in the ICU, he is on room air, continues to have intermittent episodes of extreme agitation, remains on Precedex at 1.4 mcg/kg/h, remains on Ativan intermittently and Haldol intermittently, nonetheless continues to have episodes of significant agitations. Patient is on the CIWA protocol, he seems to require suctioning of his oropharynx, purulent material is noted, patient does have gag with sucti oning and able to protect his airways. But he has a very poor cough reflex. At any rate patient will need to be on oral medications, and I am recommending a nasogastric tube to be placed today, if the patient continues to do poorly may have to consider intubation and mechanical ventilation, however this will be the last resort. In the meantime I believe the patient will remain on the same medications he is presently on and will remain on the CIWA protocol. Needs definitely close monitoring in the ICU. Patient is purulent secretions I recommended empirically starting the patient on Zosyn. WBC count is 7.4 hemoglobin 11.3 basic metabolic profile is normal except for low potassium of 3.2 renal profile is normal lipase is down to 72 amylase is normal Patient was reevaluated today on 10/27/2023, patient received significant amount of sedation yesterday, and continued to be restless and agitated, at 1 point he desaturated, and he was gurgling with secretions, I was made aware of the clarisa trevino and recommended intubation. Patient was intubated and placed on mechanical ventilation overnight, he is on assist-control rate of 20 tidal volume 400 FiO2 40% and PEEP of 5 ABG showed a pO2 of 131 pCO2 34 pH of 7.30 hence kept on the same ventilator settings. He is on propofol at 65 mcg/kg/min is also 1.9 normal saline at 125 cc/h. Patient is receiving bicarb orally for low bicarb. He is also on Zosyn empirically. Patient is also on enteral feeding. Today I went ahead and placed a right radial arterial line for hemodynamic monitoring and for frequent blood draws. WBC count is 5.9 hemoglobin is 9.4. Basic metabolic profile is normal except for bicarb of 14 patient has a hyperchloremic metabolic none anion gap metabolic acidosis. Chest x-ray showed pulmonary vascular congestion, patient received a dose of Lasix earlier this morning Patient was reevaluated today on 10/28/2023, remains in the ICU, intubated and mechanically ventilated. Patient is on assist-control rate of 20 tidal volume 400 FiO2 40% PEEP of 5 ABG showed a pO2 of 160 pCO2 37 pH of 7.34, I cut down his FiO2 down to 35%. Patient is receiving propofol at 55 mcg/kg/min, he is off norepinephrine, receiving 0.9 normal saline at 125 cc/h. Continues to have intermittent episodes of coffee-ground material in the nasogastric tube, hence nutrition/enteral feeding is presently on hold. Chest x-ray is showing some minimal vascular congestion along with small effusions and atelectasis patient remains on Zosyn empirically, he will receive Lasix 1 dose today 20 mg IV push. Patient continues to have significant amount of secretions he was given a trial off sedation patient was agitated, restless, and again significant amount of secretions were noted in the endotracheal tube, hence will hold on weaning today and extubation. WBC count is 3.8 hemoglobin 8.9. Basic metabolic profile is normal, renal profile is normal Patient was reevaluated today on 10/29/2019, remains in the ICU, intubated and mechanically ventilated. Patient was extremely restless and agitated last night on lower dose of sedation, hence his propofol was increased to as high as 70 mcg/kg/min at present. He is requiring Cleviprex at 10 mg/h for tachycardia. He is on IV fluid 0.9 normal saline at 125 cc/h. Continues to have lots of secretions via the endotracheal tube. Patient is to be restarted back on tube feeding, his positioning of the endotracheal tube and nasogastric tube will be adjusted today. Remains on Zosyn his vent settings are 20/400/35%/5 ABG showed a pO2 of 78 pCO2 34 pH of 7.37 chest x-ray today is noted to show mid and lower lung opacities, slightly increased and small pleural effusions. Patient has atelectasis, and may have a component of fluid overload, will continue intermittent diuresis on this patient, patient did receive 40 mg of Lasix IV push today. Cardiogram on this admission showed good LV function ejection fraction of 55 to 60%, and no evidence of valvular heart disease Progress note dated October 30, 2023. This is a 48-year-old male who was admitted on October 21. He came into the hospital, with alcohol withdrawal syndrome. The patient was intubated on October 25 for respiratory failure. He remains on the ventilator. Settings include volume assist-control, rate 20, tidal volume 400, FiO2 35%, with a PEEP of 5. Blood gases show pO2 of 87, pCO2 of 39, pH is 7.43. The patient is on Cleviprex at 1 mg an hour, propofol at 60 mcg/kg/min, saline at KVO, and saline at 30 cc an hour. The patient continues on Zosyn. The patient's sputum revealed evidence of methicillin sensitive Staph aureus. White count is 5.7, hemoglobin 10.1, hematocrit 31.4, and platelet count was 231,000. Sodium 140, potassium 3.4, chlorides 111, CO2 25, BUN 6, creatinine 0.55. Glucose 103. AST 14. Ammonia level was normal. Chest x-ray shows bilateral interstitial and patchy opacities. Objective - Vital Signs Vital signs: Vital Signs Temp 99.1 F 10/30/23 08:00 Pulse 102 H 10/30/23 10:00 Resp 20 10/30/23 10:00 BP 160/107 10/30/23 10:00 Pulse Ox 98 10/30/23 10:00 FiO2 35 10/30/23 08:57 Intake & Output 10/29/23 10/30/23 10/30/23 18:59 06:59 18:59 Intake Total 9216.480 4859.606 236.759 Output Total 3095 2960 315 Balance -1171.877 -1745.394 -78.241 Weight 79.3 kg 79.3 kg Intake: IV 1420 765 190 Piperacillin-Tazobactam 3 175 125 100 .375 gm In Sodium Chloride 0.9% 100 ml @ 25 mls/hr IVPB Q8HR [facility] Rx# :[id number] Sodium Chloride 0.9% 1, 995 390 90 000 ml @ 30 mls/hr IV . Q24H [facility] Rx#:[id number] Vancomycin 1,250 mg In 250 250 Sodium Chloride 0.9% 250 ml @ 125 mls/hr IVPB Q8H [facility] Rx#:[id number] Intake, IV Titration 433.123 439.606 26.759 Amount Clevidipine Butyrate 25 83.534 89.533 5.2 mg In Empty Bag 1 bag @ 1 MG/HR 2 mls/hr IV .Q24H [facility] Rx#:[id number] propofoL 1,000 mg In 349.589 350.073 21.559 Empty Bag 1 bag @ 15 MCG/ KG/MIN 6.219 mls/hr IV . Q16H5M [facility] Rx#:[id number] Tube Feeding 40 10 20 Other 30 Output: Urine 3095 2960 315 Other: Voiding Method Indwelling Catheter Indwelling Catheter Indwelling Catheter ABP, PAP, CO, CI - Last Documented Arterial Blood Pressure 131/66 - Exam No acute distress, currently sedated, with an orally placed endotracheal tube. HEENT examination is grossly unremarkable. Neck supple. Full range of motion. No adenopathy thyromegaly or neck vein distention. Cardiovascular examination reveals regular rhythm rate. S1-S2 normal. No S3 or S4. No discernible murmur noted. Heart sounds are distant. Heart rate 100 bpm. Lungs reveal scattered bilateral rhonchi. No wheezes or crackles. Breath sound s equal. Saturations are 98%. Abdomen soft, with bowel sounds. Extremities are intact. No cyanosis clubbing or edema. Skin is without rash or lesion. Neurologic examination cannot be adequately assessed at this time. - Labs CBC & Chem 7: 10/30/23 04:41 10/30/23 04:41 Labs: Abnormal Lab Results - Last 24 Hours (Table) 10/30/23 10/30/23 10/30/23 Range/Units 04:41 04:41 05:49 RBC 3.09 L (4.30-5.90) m/uL Hgb 10.1 L (13.0-17.5) gm/dL Hct 31.4 L (39.0-53.0) % MCV 101.7 H (80.0-100.0) fL Metamyelocytes # (Man) 0.06 H (0) k/uL Myelocytes # (Manual) 0.06 H (0) k/uL ABG HCO3 26 H (21-25) mmol/L ABG Total CO2 27 H (19-24) mmol/L ABG O2 Saturation 97.8 H (94-97) % Potassium 3.4 L (3.5-5.1) mmol/L Chloride 111 H (98-107) mmol/L BUN 6 L (9-20) mg/dL Creatinine 0.55 L (0.66-1.25) mg/dL Glucose 103 H (74-99) mg/dL AST 14 L (17-59) U/L Total Protein 5.0 L (6.3-8.2) g/dL Albumin 2.4 L (3.5-5.0) g/dL Microbiology - Last 24 Hours (Table) 10/26/23 14:26 Blood Culture - Preliminary Blood 10/26/23 14:26 Blood Culture - Preliminary Blood 10/26/23 19:25 Gram Stain - Final Sputum Sputum Culture - Final Staphylococcus aureus Assessment and Plan Assessment: Acute hypoxemic respiratory failure, secondary to acute alcohol withdrawal syndrome, status post intubation and mechanical ventilation, on October 26, 2023. Acute alcohol withdrawal with acute alcohol intoxication. Acute alcoholic pancreatitis. Hypertensive urgency. Abdominal pain, secondary to pancreatitis. Acute kidney injury. History of alcoholism. Mild transaminitis. History of coronary artery disease. Current everyday smoker. Plan: Plan dated October 30, 2023. The patient continues on Zosyn for his methicillin sensitive Staph aureus in the sputum. Labs, x-rays, medications are reviewed. The patient's overall prognosis remains guarded. The patient has had a daily interruption of sedation, becomes very agitated. We will continue to follow make recommendations along the way. Prognosis is certainly guarded. No additional recommendations at this time. Time with Patient: Greater than 30
[2023-10-30 12:12] LABS: Glucose,Whole Blood 114 mg/dL (70-110)
[2023-10-30 12:36] LABS: Potassium 3.6 mmol/L (3.5-5.1)
[2023-10-30] MEDS ORDERED: Potassium Replacement Protocol 1 EACH MISC MISCELLANE PRN (12:39)
[2023-10-30 18:02] LABS: Glucose,Whole Blood 109 mg/dL (70-110)
--- NOTE | 2023-10-30 20:10 | XR ---
EXAMINATION TYPE: XR chest 1V portable DATE OF EXAM: 10/30/2023 COMPARISON: 10/30/2023 HISTORY: Tube placement TECHNIQUE: Single frontal view of the chest is obtained. FINDINGS: ET tube is approximately 3.7 cm above the paul. There is an NG tube within the stomach. There is persistent hazy density obscuring the hemidiaphragms consistent with pleural effusions. Ther e is an infiltrate in the left lung base/retrocardiac region which is stable. There is less pulmonary vascular congestion compared to previous. IMPRESSION: 1. ET tube 3.7 cm above the paul. NG tube within the stomach. 2. Persistent small pleural effusions and left lung base infiltrate. 3. Decreased pulmonary vascular congestion and interstitial edema.
[2023-10-30 23:50] LABS: Glucose,Whole Blood 113 mg/dL (70-110)
[2023-10-31 05:24] LABS: African American GFR (CKD) >90 (>60 ml/min/1.73 sqM); Anion Gap 3 mmol/L; Blood Urea Nitrogen 8 mg/dL (9-20); Calcium 8.8 mg/dL (8.4-10.2); Carbon Dioxide 31 mmol/L (22-30); Chloride 106 mmol/L (98-107); Glucose 119 mg/dL (74-99); Non-African American GFR(CKD) >90 (>60 ml/min/1.73 sqM); Potassium 3.9 mmol/L (3.5-5.1); Sodium 140 mmol/L (137-145)
[2023-10-31 05:41] LABS: HGB 10.2 gm/dL (13.0-17.5); MCH 32.7 pg (25.0-35.0); MCHC 32.8 g/dL (31.0-37.0); MCV 99.6 fL (80.0-100.0); Macrocytosis Slight; Platelet Count 266 k/uL (150-450); RBC 3.11 m/uL (4.30-5.90); RDW 14.6 % (11.5-15.5); WBC 7.2 k/uL (3.8-10.6)
[2023-10-31 06:02] LABS: ABG HCO3 33 mmol/L (21-25); ABG Oxygen Saturation 97.8 % (94-97); ABG PCO2 46 mmHg (35-45); ABG PH 7.46 (7.35-7.45); ABG PO2 88 mmHg (83-108); ABG TCO2 34 mmol/L (19-24); Allen Test Performed? Yes
[2023-10-31 06:53] LABS: Glucose,Whole Blood 120 mg/dL (70-110)
[2023-10-31] MEDS: POTASSIUM BICARBONATE/CIT AC 20 MEQ TABLET.EFF NG-TUBE SCH (08:05)
[2023-10-31 08:44] LABS: Band Neutrophils % 1 %; Eosinophils # (M) 0.14 k/uL (0-0.7); Lymphocytes # (M) 0.86 k/uL (1.0-4.8); Metamyelocytes # (M) 0.07 k/uL (0); Metamyelocytes % 1 %; Monocytes # (M) 0.72 k/uL (0-1.0); Myelocytes % 7 %; Neutrophils % (M) 69 %; Nucleated Red Blood Cells 0 /100 WBC (0-0); Total Cells Counted 200; Toxic Vacuolation Present
[2023-10-31] MEDS: amLODIPine 10 MG TAB PO SCH (09:00)
--- NOTE | 2023-10-31 10:35 | XR ---
EXAMINATION TYPE: XR chest 1V portable DATE OF EXAM: 10/31/2023 Comparison: 10/30/23 Clinical History: 48-year-old male mechanical ventilation Findings: ET and NG tubes are satisfactory. The heart is upper limits of normal in size. Perihilar and intersti tial density persists along with bibasilar opacities. Impression: Stable exam with small bilateral pleural effusions with adjacent atelectasis and/or consolidation. In terstitial prominence, possible pulmonary vascular congestion.
--- NOTE | 2023-10-31 11:14 | P.PN ---
Subjective Progress Note Date: 10/31/23 Principal diagnosis: Respiratory failure. Patient is a 48-year-old white male with past medical history significant for hypertension, coronary artery disease, current everyday smoker, and alcohol abuse. He was transferred from [facility] 10/22/2023 for acute pancreatitis. He was noted to be intoxicated on arrival to outside facility, with an alcohol level of 34 mg/dL, while at our facility developed impending acute alcohol withdrawal delirium tremens. He required ICU admission for Precedex infusion. Patient is currently lethargic and not a very good historian . After reviewing the medical records from the outside facility, it appears he presented with abdominal pain. He was also noted to have severely elevated lipase and amylase levels. An abdominal and pelvis CT was performed, which identified peripancreatic inflammatory stranding and fluid consistent with acute pancreatitis. No pseudocyst, abscess, or pancreatic necrosis. No gallstones or ductal dilation. There was decreased attenuation of the hepatic parenchyma, suggestive of fatty infiltration. Patient was dehdydrated and noted to have sustained an WILFRIDO. It appears he was fluid resuscitated with 2 L of crystalloid fluid. He was then transferred to [facility]. He was noted to be steffany tated and combative. He had received multiple doses of Ativan, I am told a total of 16 mg. He was also receiving Haldol. Despite this, he had sustained recorded CIWA scores greater than 28, and for this reason he was placed on a Precedex infusion and admitted to the intensive care unit. Most recent CBC from yesterday: WBC count 7.6, hemoglobin 13.9, hematocrit 42, platelets 110. Most recent CMP from yesterday: Sodium 138, potassium 4.4, chloride 108, serum bicarb 19, BUN 18, creatinine 1.13, glucose 94. AST 97, ALT 74, ALP 156, total bilirubin 1. Lipase 11,329 and amylase 1468. Patient is currently lethargic and not making much sense when talking. Unsure of when last drink was. Precedex is infusing at 0.4 mcg/kg/h. He does have bilateral upper extremity soft restraints on, which likely can be discontinued. Blood pressure is noted to be hypertensive, has received a clonidine 0.2 mg patch, which is fallen off and will be replaced. EKG shows normal sinus rhythm without any obvious acute ischemic changes. Patient's pain appears well-managed with current regimen of as needed Dilaudid. He does have some facial grimacing with palpation of the bilateral upper abdomen. Normal saline is infusing at 150 MLS per hour. Currently on room air, in no acute respiratory distress. Afebrile. He has been moved to room 262 in the intensive care unit. Patient was evaluated today on 10/25/2023, remains in the ICU, remains on Precedex at 1 mcg/kg/h. Remains on Cleviprex. Remains on Ativan intermittently and on Haldol. In spite of all of this the patient continues to have episodes of extreme agitation and restlessness. And seems to be delirious. Continues to have a sitter at bedside. His WBC is 7.8 hemoglobin 11.3 basic metabolic profile is normal renal profile is normal however his bicarb is 15, lipase is down to 164 today, it was 1668 yesterday, amylase is down to 112 from 598 yesterday obviously his acute pancreatitis is improving chest x-ray showed no evidence of active disease, minimal pulmonary vascular prominence Reevaluate today on 10/26/2023, patient remains in the ICU, he is on room air, continues to have intermittent episodes of extreme agitation, remains on Precedex at 1.4 mcg/kg/h, remains on Ativan intermittently and Haldol intermittently, nonetheless continues to have episodes of significant agitations. Patient is on the CIWA protocol, he seems to require suctioning of his oropharynx, purulent material is noted, patient does have gag with sucti oning and able to protect his airways. But he has a very poor cough reflex. At any rate patient will need to be on oral medications, and I am recommending a nasogastric tube to be placed today, if the patient continues to do poorly may have to consider intubation and mechanical ventilation, however this will be the last resort. In the meantime I believe the patient will remain on the same medications he is presently on and will remain on the CIWA protocol. Needs definitely close monitoring in the ICU. Patient is purulent secretions I recommended empirically starting the patient on Zosyn. WBC count is 7.4 hemoglobin 11.3 basic metabolic profile is normal except for low potassium of 3.2 renal profile is normal lipase is down to 72 amylase is normal Patient was reevaluated today on 10/27/2023, patient received significant amount of sedation yesterday, and continued to be restless and agitated, at 1 point he desaturated, and he was gurgling with secretions, I was made aware of the clarisa trevino and recommended intubation. Patient was intubated and placed on mechanical ventilation overnight, he is on assist-control rate of 20 tidal volume 400 FiO2 40% and PEEP of 5 ABG showed a pO2 of 131 pCO2 34 pH of 7.30 hence kept on the same ventilator settings. He is on propofol at 65 mcg/kg/min is also 1.9 normal saline at 125 cc/h. Patient is receiving bicarb orally for low bicarb. He is also on Zosyn empirically. Patient is also on enteral feeding. Today I went ahead and placed a right radial arterial line for hemodynamic monitoring and for frequent blood draws. WBC count is 5.9 hemoglobin is 9.4. Basic metabolic profile is normal except for bicarb of 14 patient has a hyperchloremic metabolic none anion gap metabolic acidosis. Chest x-ray showed pulmonary vascular congestion, patient received a dose of Lasix earlier this morning Patient was reevaluated today on 10/28/2023, remains in the ICU, intubated and mechanically ventilated. Patient is on assist-control rate of 20 tidal volume 400 FiO2 40% PEEP of 5 ABG showed a pO2 of 160 pCO2 37 pH of 7.34, I cut down his FiO2 down to 35%. Patient is receiving propofol at 55 mcg/kg/min, he is off norepinephrine, receiving 0.9 normal saline at 125 cc/h. Continues to have intermittent episodes of coffee-ground material in the nasogastric tube, hence nutrition/enteral feeding is presently on hold. Chest x-ray is showing some minimal vascular congestion along with small effusions and atelectasis patient remains on Zosyn empirically, he will receive Lasix 1 dose today 20 mg IV push. Patient continues to have significant amount of secretions he was given a trial off sedation patient was agitated, restless, and again significant amount of secretions were noted in the endotracheal tube, hence will hold on weaning today and extubation. WBC count is 3.8 hemoglobin 8.9. Basic metabolic profile is normal, renal profile is normal Patient was reevaluated today on 10/29/2019, remains in the ICU, intubated and mechanically ventilated. Patient was extremely restless and agitated last night on lower dose of sedation, hence his propofol was increased to as high as 70 mcg/kg/min at present. He is requiring Cleviprex at 10 mg/h for tachycardia. He is on IV fluid 0.9 normal saline at 125 cc/h. Continues to have lots of secretions via the endotracheal tube. Patient is to be restarted back on tube feeding, his positioning of the endotracheal tube and nasogastric tube will be adjusted today. Remains on Zosyn his vent settings are 20/400/35%/5 ABG showed a pO2 of 78 pCO2 34 pH of 7.37 chest x-ray today is noted to show mid and lower lung opacities, slightly increased and small pleural effusions. Patient has atelectasis, and may have a component of fluid overload, will continue intermittent diuresis on this patient, patient did receive 40 mg of Lasix IV push today. Cardiogram on this admission showed good LV function ejection fraction of 55 to 60%, and no evidence of valvular heart disease Progress note dated October 30, 2023. This is a 48-year-old male who was admitted on October 21. He came into the hospital, with alcohol withdrawal syndrome. The patient was intubated on October 25 for respiratory failure. He remains on the ventilator. Settings include volume assist-control, rate 20, tidal volume 400, FiO2 35%, with a PEEP of 5. Blood gases show pO2 of 87, pCO2 of 39, pH is 7.43. The patient is on Cleviprex at 1 mg an hour, propofol at 60 mcg/kg/min, saline at KVO, and saline at 30 cc an hour. The patient continues on Zosyn. The patient's sputum revealed evidence of methicillin sensitive Staph aureus. White count is 5.7, hemoglobin 10.1, hematocrit 31.4, and platelet count was 231,000. Sodium 140, potassium 3.4, chlorides 111, CO2 25, BUN 6, creatinine 0.55. Glucose 103. AST 14. Ammonia level was normal. Chest x-ray shows bilateral interstitial and patchy opacities. Progress note dated October 31, 2023. This is a 48-year-old male who was admitted on October 21. He came into the hospital, with alcohol withdrawal syndrome. The patient was intubated on October 25 for respiratory failure. He remains on the ventilator. Current ventilator settings include volume assist-control, rate 20, tidal volume 400, FiO2 35%, PEEP of 5. Blood gases show pO2 of 88, pCO2 46, pH is 7.46. The patient is getting propofol at 70 mcg/kg/min, Cleviprex at 2 mg an hour, and Nepro tube fe edings at 19 cc an hour, which is goal. Today, we will add amlodipine at 5 mg an hour for better blood pressure control, and the patient continues on Zosyn, for staphylococci in the sputum. White count 7.2, hemoglobin 10.2, hematocrit 31, and platelet count was normal. Sodium 140, potassium 3.9, chlorides 106, CO2 31, BUN 8, creatinine 0.52. Glucose is 120. Calcium 8.8. Patient's chest x-ray shows a stable exam with small bilateral pleural effusions, and adjacent atelectasis. Objective - Vital Signs Vital signs: Vital Signs Temp 98.7 F 10/31/23 08:00 Pulse 99 10/31/23 10:00 Resp 20 10/31/23 10:00 BP 123/86 10/31/23 10:00 Pulse Ox 97 10/31/23 10:00 FiO2 35 10/31/23 08:48 Intake & Output 10/30/23 10/31/23 10/31/23 18:59 06:59 18:59 Intake Total 994.173 921.706 354.268 Output Total 1785 1560 150 Balance -790.827 -638.294 204.268 Weight 79.3 kg 76.4 kg Intake: IV 530 490 190 Piperacillin-Tazobactam 3 200 100 100 .375 gm In Sodium Chloride 0.9% 100 ml @ 25 mls/hr IVPB Q8HR [facility] Rx# :[id number] Sodium Chloride 0.9% 1, 330 390 90 000 ml @ 30 mls/hr IV . Q24H [facility] Rx#:[id number] Intake, IV Titration 354.173 421.706 107.268 Amount Clevidipine Butyrate 25 80.801 79.499 7.268 mg In Empty Bag 1 bag @ 1 MG/HR 2 mls/hr IV .Q24H [facility] Rx#:[id number] propofoL 1,000 mg In 273.372 342.207 100.000 Empty Bag 1 bag @ 15 MCG/ KG/MIN 6.219 mls/hr IV . Q16H5M [facility] Rx#:[id number] Tube Feeding 110 10 57 Output: Urine 1785 1560 150 Other: Voiding Method Indwelling Catheter Indwelling Catheter Indwelling Catheter ABP, PAP, CO, CI - Last Documented Arterial Blood Pressure 122/64 - Exam No acute distress, currently sedated, with an orally placed endotracheal tube. HEENT examination is grossly unremarkable. Neck supple. Full range of motion. No adenopathy thyromegaly or neck vein distention. Cardiovascular examination reveals regular rhythm rate. S1-S2 normal. No S3 or S4. No discernible murmur noted. Heart sounds are distant. Heart rate 99 bpm. Lungs reveal scattered bilateral rhonchi. No wheezes or crackles. Breath sounds equal. Saturations are 97 %. Abdomen soft, with bowel sounds. Extremities are intact. No cyanosis clubbing or edema. Skin is without rash or lesion. Neurologic examination cannot be adequately assessed at this time. - Labs CBC & Chem 7: 10/31/23 05:05 10/31/23 05:05 Labs: Abnormal Lab Results - Last 24 Hours (Table) 10/30/23 10/30/23 10/30/23 Range/Units 12:09 12:15 23:48 RBC (4.30-5.90) m/uL Hgb (13.0-17.5) gm/dL Hct (39.0-53.0) % Lymphocytes # (Manual) (1.0-4.8) k/uL Metamyelocytes # (Man) (0) k/uL Myelocytes # (Manual) (0) k/uL ABG pH (7.35-7.45) ABG pCO2 (35-45) mmHg ABG HCO3 (21-25) mmol/L ABG Total CO2 (19-24) mmol/L ABG O2 Saturation (94-97) % Carbon Dioxide (22-30) mmol/L BUN (9-20) mg/dL Creatinine (0.66-1.25) mg/dL Glucose (74-99) mg/dL POC Glucose (mg/dL) 114 H 113 H (70-110) mg/dL Phosphorus 5.0 H (2.5-4.5) mg/dL 10/31/23 10/31/23 10/31/23 Range/Units 05:05 05:05 06:00 RBC 3.11 L (4.30-5.90) m/uL Hgb 10.2 L (13.0-17.5) gm/dL Hct 31.0 L (39.0-53.0) % Lymphocytes # (Manual) 0.86 L (1.0-4.8) k/uL Metamyelocytes # (Man) 0.07 H (0) k/uL Myelocytes # (Manual) 0.50 H (0) k/uL ABG pH 7.46 H (7.35-7.45) ABG pCO2 46 H (35-45) mmHg ABG HCO3 33 H (21-25) mmol/L ABG Total CO2 34 H (19-24) mmol/L ABG O2 Saturation 97.8 H (94-97) % Carbon Dioxide 31 H (22-30) mmol/L BUN 8 L (9-20) mg/dL Creatinine 0.52 L (0.66-1.25) mg/dL Glucose 119 H (74-99) mg/dL POC Glucose (mg/dL) (70-110) mg/dL Phosphorus (2.5-4.5) mg/dL 10/31/23 Range/Units 06:52 RBC (4.30-5.90) m/uL Hgb (13.0-17.5) gm/dL Hct (39.0-53.0) % Lymphocytes # (Manual) (1.0-4.8) k/uL Metamyelocytes # (Man) (0) k/uL Myelocytes # (Manual) (0) k/uL ABG pH (7.35-7.45) ABG pCO2 (35-45) mmHg ABG HCO3 (21-25) mmol/L ABG Total CO2 (19-24) mmol/L ABG O2 Saturation (94-97) % Carbon Dioxide (22-30) mmol/L BUN (9-20) mg/dL Creatinine (0.66-1.25) mg/dL Glucose (74-99) mg/dL POC Glucose (mg/dL) 120 H (70-110) mg/dL Phosphorus (2.5-4.5) mg/dL Assessment and Plan Assessment: Acute hypoxemic respiratory failure, secondary to acute alcohol withdrawal syndrome, status post intubation and mechanical ventilation, on October 26, 2023. Acute alcohol withdrawal with acute alcohol intoxication. Acute alcoholic pancreatitis. Hypertensive urgency. Abdominal pain, secondary to pancreatitis. Acute kidney injury. History of alcoholism. Mild transaminitis. History of coronary artery disease. Current everyday smoker. Plan: Plan dated October 30, 2023. The patient continues on Zosyn for his methicillin sensitive Staph aureus in the sputum. Labs, x-rays, medications are reviewed. The patient's overall prognosis remains guarded. The patient has had a daily interruption of sedation, becomes very agitated. We will continue to follow make recommendations along the way. Prognosis is certainly guarded. No additional recommendations at this time. Plan dated October 31, 2023. The patient remains on Zosyn, for his methicillin sensitive Staph aureus infection in the sputum/lung. Labs, x-rays, and medications are all reviewed. The patient's overall condition remains very guarded. If he does not show any progress towards weaning and extubation, by the end of the week, the patient may end up with a tracheostomy tube, and a PEG tube. We will continue to follow make recommendations along the way. Today we added amlodipine at 5 mg/day, to see if we can wean the patient off the Cleviprex. Patient continues on propofol. The patient also continues on Zosyn. Additional recommendations and suggestions are forthcoming. Time with Patient: Greater than 30
[2023-10-31 12:31] LABS: Glucose,Whole Blood 122 mg/dL (70-110)
[2023-10-31] MEDS: SODIUM CHLORIDE 0.9% 1,000 ML IV SCH (17:22)
[2023-10-31 18:09] LABS: Glucose,Whole Blood 114 mg/dL (70-110)
[2023-11-01 00:20] LABS: Glucose,Whole Blood 112 mg/dL (70-110)
[2023-11-01 05:29] LABS: African American GFR (CKD) >90 (>60 ml/min/1.73 sqM); Anion Gap 2 mmol/L; Blood Urea Nitrogen 11 mg/dL (9-20); Calcium 9.1 mg/dL (8.4-10.2); Carbon Dioxide 31 mmol/L (22-30); Chloride 106 mmol/L (98-107); Glucose 105 mg/dL (74-99); Non-African American GFR(CKD) >90 (>60 ml/min/1.73 sqM); Potassium 3.9 mmol/L (3.5-5.1); Sodium 139 mmol/L (137-145)
[2023-11-01] MEDS: POTASSIUM BICARBONATE/CIT AC 20 MEQ TABLET.EFF NG-TUBE SCH (05:38)
[2023-11-01 05:48] LABS: ABG Base Excess 8.6 mmol/L; ABG HCO3 32 mmol/L (21-25); ABG Oxygen Saturation 96.5 % (94-97); ABG PCO2 45 mmHg (35-45); ABG PH 7.47 (7.35-7.45); ABG PO2 74 mmHg (83-108); ABG TCO2 34 mmol/L (19-24); Allen Test Performed? Yes
[2023-11-01 05:52] LABS: Glucose,Whole Blood 91 mg/dL (70-110)
[2023-11-01 06:38] LABS: HCT 30.9 % (39.0-53.0); MCH 32.3 pg (25.0-35.0); MCHC 32.3 g/dL (31.0-37.0); MCV 99.9 fL (80.0-100.0); Macrocytosis Slight; Mean Platelet Volume 9.6; Platelet Count 305 k/uL (150-450); RDW 14.8 % (11.5-15.5); WBC 6.7 k/uL (3.8-10.6)
[2023-11-01 08:15] LABS: Band Neutrophils % 3 %; Eosinophils # (M) 0.27 k/uL (0-0.7); Metamyelocytes % 3 %; Monocytes # (M) 0.67 k/uL (0-1.0); Myelocytes # (M) 0.13 k/uL (0); Myelocytes % 2 %; Neutrophils % (M) 67 %; Nucleated Red Blood Cells 0 /100 WBC (0-0); Total Cells Counted 200
--- NOTE | 2023-11-01 09:25 | XR ---
EXAMINATION TYPE: XR chest 1V portable DATE OF EXAM: 11/01/2023 Comparison: 10/31/2023 Clinical History: 48-year-old male mechanical ventilation Findings: ET and NG tubes are satisfactory. Heart upper limits of normal in size. Perihilar density, mild diffu se interstitial density, and patchy bibasilar opacities are similar. Impression: Similar perihilar, interstitial, and bibasilar densities. Possible sequela of mild CHF.
[2023-11-01] MEDS: fentaNYL (PF). 1,000 MCG in SODIUM CHLORIDE 0.9% 80 ML IV SCH (10:16)
--- NOTE | 2023-11-01 10:39 | P.PN ---
Subjective Progress Note Date: 10/30/23 Patient is a 48-year-old male with known history of alcohol abuse admitted to hospital due to acute pancreatitis, acute delirium tremors. Patient is agitated, transferred to MICU and is on mechanical ventilator.. 10/30/2023 Patient is currently in the MICU. Intubated and on mechanical ventilator. Patient is on assist-control. Currently receiving Cleviprex and also on propofol. Chest x-ray showed bilateral interstitial and patchy opacities. Patient is receiving antibiotics in the home office Zosyn and sputum cultures showed MSSA. Laboratory data showed WBC 5.7 hemoglobin 10.1 platelets 231 ABG showed pH 7.43 pCO2 39 pO2 87 Sodium 140 potassium 3.4 chloride 101 bicarb is 25 BUN 16 creatinine 0.55 and blood sugar is 103 and AST 14 ALT 10 and alk phos 78 and ammonia level is 22. Albumin 2.4. Lipase 155. Current medications reviewed. Objective - Vital Signs Vital signs: Vital Signs Temp 99.1 F 10/30/23 08:00 Pulse 104 H 10/30/23 09:19 Resp 20 10/30/23 09:15 BP 142/101 10/30/23 09:15 Pulse Ox 98 10/30/23 09:15 FiO2 35 10/30/23 08:57 Intake & Output 10/29/23 10/30/23 10/30/23 18:59 06:59 18:59 Intake Total 4447.343 3959.606 206.759 Output Total 3095 2960 205 Balance -1171.877 -1745.394 1.759 Weight 79.3 kg Intake: IV 1420 765 160 Piperacillin-Tazobactam 3 175 125 100 .375 gm In Sodium Chloride 0.9% 100 ml @ 25 mls/hr IVPB Q8HR [facility] Rx# :[id number] Sodium Chloride 0.9% 1, 995 390 60 000 ml @ 30 mls/hr IV . Q24H [facility] Rx#:[id number] Vancomycin 1,250 mg In 250 250 Sodium Chloride 0.9% 250 ml @ 125 mls/hr IVPB Q8H [facility] Rx#:[id number] Intake, IV Titration 433.123 439.606 26.759 Amount Clevidipine Butyrate 25 83.534 89.533 5.2 mg In Empty Bag 1 bag @ 1 MG/HR 2 mls/hr IV .Q24H [facility] Rx#:[id number] propofoL 1,000 mg In 349.589 350.073 21.559 Empty Bag 1 bag @ 15 MCG/ KG/MIN 6.219 mls/hr IV . Q16H5M [facility] Rx#:[id number] Tube Feeding 40 10 20 Other 30 Output: Urine 3095 2960 205 Other: Voiding Method Indwelling Catheter Indwelling Catheter ABP, PAP, CO, CI - Last Documented Arterial Blood Pressure 130/68 - Exam PHYSICAL EXAMINATION: Patient is sedated, intubated and on mechanical ventilator.. HEENT: Normocephalic. Neck is supple. Pupils reactive. Nostrils clear. Oral cavity is moist. Neck reveals no JVD, carotid bruits, or thyromegaly. CHEST EXAMINATION: Trachea is central. Symmetrical expansion. Lung ghotra clear to auscultation and percussion. CARDIAC: Normal S1, S2 with no gallops. No murmurs ABDOMEN: Soft. Bowel sounds normal. No organomegaly. No abdominal bruits. Extremities: reveal no edema. No clubbing or cyanosis Neurologically sedated and intubated. No gross focal deficits noted Skin: No rash or skin lesions. Psychiatric: Could not be assessed at this time Musculoskeletal: No joint swelling or deformity. - Labs CBC & Chem 7: 11/01/23 04:52 11/01/23 04:52 Labs: Abnormal Lab Results - Last 24 Hours (Table) 10/30/23 10/30/23 10/30/23 Range/Units 04:41 04:41 05:49 RBC 3.09 L (4.30-5.90) m/uL Hgb 10.1 L (13.0-17.5) gm/dL Hct 31.4 L (39.0-53.0) % MCV 101.7 H (80.0-100.0) fL Metamyelocytes # (Man) 0.06 H (0) k/uL Myelocytes # (Manual) 0.06 H (0) k/uL ABG HCO3 26 H (21-25) mmol/L ABG Total CO2 27 H (19-24) mmol/L ABG O2 Saturation 97.8 H (94-97) % Potassium 3.4 L (3.5-5.1) mmol/L Chloride 111 H (98-107) mmol/L BUN 6 L (9-20) mg/dL Creatinine 0.55 L (0.66-1.25) mg/dL Glucose 103 H (74-99) mg/dL AST 14 L (17-59) U/L Total Protein 5.0 L (6.3-8.2) g/dL Albumin 2.4 L (3.5-5.0) g/dL Microbiology - Last 24 Hours (Table) 10/26/23 14:26 Blood Culture - Preliminary Blood 10/26/23 14:26 Blood Culture - Preliminary Blood 10/26/23 19:25 Gram Stain - Final Sputum Sputum Culture - Final Staphylococcus aureus Assessment and Plan Assessment: Acute hypoxemic respiratory failure second alcohol withdrawal symptoms and DTs currently intubated and on mechanical ventilator since October 26, 2023 Acute alcohol withdrawal symptoms Acute pancreatitis likely alcohol-related Acute kidney injury likely prerenal improved now. Severe alcohol abuse Mild transaminitis improved History of coronary disease Currently everyday smoker GI and DVT prophylaxis Plan: Patient is on mechanical ventilator. Continued on Cleviprex and also on propofol drip. Patient will be continued on gentle IV hydration. Continue with antibiotics in the form of Zosyn. Daily weaning trials as per critical care team. Continue to follow closely. Time with Patient: Greater than 30
--- NOTE | 2023-11-01 10:41 | P.PN ---
Subjective Progress Note Date: 10/31/23 Patient is a 48-year-old male with known history of alcohol abuse admitted to hospital due to acute pancreatitis, acute delirium tremors. Patient is agitated, transferred to MICU and is on mechanical ventilator.. 10/30/2023 Patient is currently in the MICU. Intubated and on mechanical ventilator. Patient is on assist-control. Currently receiving Cleviprex and also on propofol. Chest x-ray showed bilateral interstitial and patchy opacities. Patient is receiving antibiotics in the home office Zosyn and sputum cultures showed MSSA. Laboratory data showed WBC 5.7 hemoglobin 10.1 platelets 231 ABG showed pH 7.43 pCO2 39 pO2 87 Sodium 140 potassium 3.4 chloride 101 bicarb is 25 BUN 16 creatinine 0.55 and blood sugar is 103 and AST 14 ALT 10 and alk phos 78 and ammonia level is 22. Albumin 2.4. Lipase 155. 10/31/2023 Patient is in the MICU and remains on medical ventilator. Patient is receiving Cleviprex drip. Also on propofol sedation. Continued on mechanical ventilator with assist-control respiratory 20 tidal volume 400 FiO2 30% and PEEP of 5. Blood pressure is elevated. Continued on antibiotics with Zosyn. Sputum culture showed MSSA. Laboratory data showed WBC 7.2 hemoglobin 10.1 platelets 266 Sodium 140 potassium 3.9 chloride 106 bicarb is 31 BUN 8 and creatinine 0.52 and blood sugar is 119 and calcium 8.8. Patient is also on IV hydration with normal saline. Pulmonary is on board. Current medications reviewed. Objective - Vital Signs Vital signs: Vital Signs Temp 99.7 F H 10/31/23 20:00 Pulse 105 H 10/31/23 22:00 Resp 20 10/31/23 22:00 BP 120/76 10/31/23 22:00 Pulse Ox 97 10/31/23 22:00 FiO2 35 10/31/23 20:40 Intake & Output 10/31/23 10/31/23 11/01/23 06:59 18:59 06:59 Intake Total 182.431 2500.340 394.578 Output Total 1560 925 515 Balance -638.294 178.340 -120.422 Weight 76.4 kg 76.4 kg Intake: IV 490 370 150 Piperacillin-Tazobactam 3 100 100 .375 gm In Sodium Chloride 0.9% 100 ml @ 25 mls/hr IVPB Q8HR [facility] Rx# :[id number] Sodium Chloride 0.9% 1, 390 270 000 ml @ 30 mls/hr IV . Q24H [facility] Rx#:[id number] Sodium Chloride 0.9% 1, 150 000 ml @ 50 mls/hr IV . Q20H [facility] Rx#:[id number] Intake, IV Titration 421.706 511.340 133.578 Amount Clevidipine Butyrate 25 79.499 33.201 2.8 mg In Empty Bag 1 bag @ 1 MG/HR 2 mls/hr IV .Q24H [facility] Rx#:[id number] Piperacillin-Tazobactam 3 100 .375 gm In Sodium Chloride 0.9% 100 ml @ 25 mls/hr IVPB Q8HR [facility] Rx# :[id number] Sodium Chloride 0.9% 1, 100 50 000 ml @ 50 mls/hr IV . Q20H [facility] Rx#:[id number] propofoL 1,000 mg In 342.207 278.139 80.778 Empty Bag 1 bag @ 15 MCG/ KG/MIN 6.219 mls/hr IV . Q16H5M [facility] Rx#:[id number] Tube Feeding 10 222 81 Other 30 Output: Urine 1560 925 515 Other: Voiding Method Indwelling Catheter Indwelling Catheter ABP, PAP, CO, CI - Last Documented Arterial Blood Pressure 112/58 - Exam PHYSICAL EXAMINATION: Patient is sedated, intubated and on mechanical ventilator.. HEENT: Normocephalic. Neck is supple. Pupils reactive. Nostrils clear. Oral cavity is moist. Neck reveals no JVD, carotid bruits, or thyromegaly. CHEST EXAMINATION: Trachea is central. Symmetrical expansion. Lung ghotra clear to auscultation and percussion. CARDIAC: Normal S1, S2 with no gallops. No murmurs ABDOMEN: Soft. Bowel sounds normal. No organomegaly. No abdominal bruits. Extremities: reveal no edema. No clubbing or cyanosis Neurologically sedated and intubated. No gross focal deficits noted Skin: No rash or skin lesions. Psychiatric: Could not be assessed at this time Musculoskeletal: No joint swelling or deformity. - Labs CBC & Chem 7: 11/01/23 04:52 11/01/23 04:52 Labs: Abnormal Lab Results - Last 24 Hours (Table) 10/30/23 10/31/23 10/31/23 Range/Units 23:48 05:05 05:05 RBC 3.11 L (4.30-5.90) m/uL Hgb 10.2 L (13.0-17.5) gm/dL Hct 31.0 L (39.0-53.0) % Lymphocytes # (Manual) 0.86 L (1.0-4.8) k/uL Metamyelocytes # (Man) 0.07 H (0) k/uL Myelocytes # (Manual) 0.50 H (0) k/uL ABG pH (7.35-7.45) ABG pCO2 (35-45) mmHg ABG HCO3 (21-25) mmol/L ABG Total CO2 (19-24) mmol/L ABG O2 Saturation (94-97) % Carbon Dioxide 31 H (22-30) mmol/L BUN 8 L (9-20) mg/dL Creatinine 0.52 L (0.66-1.25) mg/dL Glucose 119 H (74-99) mg/dL POC Glucose (mg/dL) 113 H (70-110) mg/dL 10/31/23 10/31/23 10/31/23 Range/Units 06:00 06:52 12:29 RBC (4.30-5.90) m/uL Hgb (13.0-17.5) gm/dL Hct (39.0-53.0) % Lymphocytes # (Manual) (1.0-4.8) k/uL Metamyelocytes # (Man) (0) k/uL Myelocytes # (Manual) (0) k/uL ABG pH 7.46 H (7.35-7.45) ABG pCO2 46 H (35-45) mmHg ABG HCO3 33 H (21-25) mmol/L ABG Total CO2 34 H (19-24) mmol/L ABG O2 Saturation 97.8 H (94-97) % Carbon Dioxide (22-30) mmol/L BUN (9-20) mg/dL Creatinine (0.66-1.25) mg/dL Glucose (74-99) mg/dL POC Glucose (mg/dL) 120 H 122 H (70-110) mg/dL 10/31/23 Range/Units 18:07 RBC (4.30-5.90) m/uL Hgb (13.0-17.5) gm/dL Hct (39.0-53.0) % Lymphocytes # (Manual) (1.0-4.8) k/uL Metamyelocytes # (Man) (0) k/uL Myelocytes # (Manual) (0) k/uL ABG pH (7.35-7.45) ABG pCO2 (35-45) mmHg ABG HCO3 (21-25) mmol/L ABG Total CO2 (19-24) mmol/L ABG O2 Saturation (94-97) % Carbon Dioxide (22-30) mmol/L BUN (9-20) mg/dL Creatinine (0.66-1.25) mg/dL Glucose (74-99) mg/dL POC Glucose (mg/dL) 114 H (70-110) mg/dL Microbiology - Last 24 Hours (Table) 10/26/23 14:26 Blood Culture - Final Blood 10/26/23 14:26 Blood Culture - Final Blood Assessment and Plan Assessment: Acute hypoxemic respiratory failure second alcohol withdrawal symptoms and DTs currently intubated and on mechanical ventilator since October 26, 2023 Acute alcohol withdrawal symptoms and DTs Uncontrolled hypertension Acute pancreatitis likely alcohol-related Acute kidney injury likely prerenal improved now. Severe alcohol abuse Mild transaminitis improved History of coronary disease Currently everyday smoker GI and DVT prophylaxis Plan: Patient is on mechanical ventilator. Continued on Cleviprex and also on propofol drip. Continue to titrate blood pressure medications. Patient will be continued on gentle IV hydration. Monitor urine output. Continue with antibiotics in the form of Zosyn. Daily weaning trials as per critical care team. Continue to follow closely. Time with Patient: Greater than 30
[2023-11-01 12:02] LABS: Glucose,Whole Blood 109 mg/dL (70-110)
[2023-11-01] MEDS: METOCLOPRAMIDE 5 MG/ML 2 ML VIAL IVP SCH (12:09)
--- NOTE | 2023-11-01 13:16 | P.PN ---
Subjective Progress Note Date: 11/01/23 Principal diagnosis: Respiratory failure. Patient is a 48-year-old white male with past medical history significant for hypertension, coronary artery disease, current everyday smoker, and alcohol abuse. He was transferred from [facility] 10/22/2023 for acute pancreatitis. He was noted to be intoxicated on arrival to outside facility, with an alcohol level of 34 mg/dL, while at our facility developed impending acute alcohol withdrawal delirium tremens. He required ICU admission for Precedex infusion. Patient is currently lethargic and not a very good historian . After reviewing the medical records from the outside facility, it appears he presented with abdominal pain. He was also noted to have severely elevated lipase and amylase levels. An abdominal and pelvis CT was performed, which identified peripancreatic inflammatory stranding and fluid consistent with acute pancreatitis. No pseudocyst, abscess, or pancreatic necrosis. No gallstones or ductal dilation. There was decreased attenuation of the hepatic parenchyma, suggestive of fatty infiltration. Patient was dehdydrated and noted to have sustained an WILFRIDO. It appears he was fluid resuscitated with 2 L of crystalloid fluid. He was then transferred to [facility]. He was noted to be steffany tated and combative. He had received multiple doses of Ativan, I am told a total of 16 mg. He was also receiving Haldol. Despite this, he had sustained recorded CIWA scores greater than 28, and for this reason he was placed on a Precedex infusion and admitted to the intensive care unit. Most recent CBC from yesterday: WBC count 7.6, hemoglobin 13.9, hematocrit 42, platelets 110. Most recent CMP from yesterday: Sodium 138, potassium 4.4, chloride 108, serum bicarb 19, BUN 18, creatinine 1.13, glucose 94. AST 97, ALT 74, ALP 156, total bilirubin 1. Lipase 11,329 and amylase 1468. Patient is currently lethargic and not making much sense when talking. Unsure of when last drink was. Precedex is infusing at 0.4 mcg/kg/h. He does have bilateral upper extremity soft restraints on, which likely can be discontinued. Blood pressure is noted to be hypertensive, has received a clonidine 0.2 mg patch, which is fallen off and will be replaced. EKG shows normal sinus rhythm without any obvious acute ischemic changes. Patient's pain appears well-managed with current regimen of as needed Dilaudid. He does have some facial grimacing with palpation of the bilateral upper abdomen. Normal saline is infusing at 150 MLS per hour. Currently on room air, in no acute respiratory distress. Afebrile. He has been moved to room 262 in the intensive care unit. Patient was evaluated today on 10/25/2023, remains in the ICU, remains on Precedex at 1 mcg/kg/h. Remains on Cleviprex. Remains on Ativan intermittently and on Haldol. In spite of all of this the patient continues to have episodes of extreme agitation and restlessness. And seems to be delirious. Continues to have a sitter at bedside. His WBC is 7.8 hemoglobin 11.3 basic metabolic profile is normal renal profile is normal however his bicarb is 15, lipase is down to 164 today, it was 1668 yesterday, amylase is down to 112 from 598 yesterday obviously his acute pancreatitis is improving chest x-ray showed no evidence of active disease, minimal pulmonary vascular prominence Reevaluate today on 10/26/2023, patient remains in the ICU, he is on room air, continues to have intermittent episodes of extreme agitation, remains on Precedex at 1.4 mcg/kg/h, remains on Ativan intermittently and Haldol intermittently, nonetheless continues to have episodes of significant agitations. Patient is on the CIWA protocol, he seems to require suctioning of his oropharynx, purulent material is noted, patient does have gag with sucti oning and able to protect his airways. But he has a very poor cough reflex. At any rate patient will need to be on oral medications, and I am recommending a nasogastric tube to be placed today, if the patient continues to do poorly may have to consider intubation and mechanical ventilation, however this will be the last resort. In the meantime I believe the patient will remain on the same medications he is presently on and will remain on the CIWA protocol. Needs definitely close monitoring in the ICU. Patient is purulent secretions I recommended empirically starting the patient on Zosyn. WBC count is 7.4 hemoglobin 11.3 basic metabolic profile is normal except for low potassium of 3.2 renal profile is normal lipase is down to 72 amylase is normal Patient was reevaluated today on 10/27/2023, patient received significant amount of sedation yesterday, and continued to be restless and agitated, at 1 point he desaturated, and he was gurgling with secretions, I was made aware of the clarisa trevino and recommended intubation. Patient was intubated and placed on mechanical ventilation overnight, he is on assist-control rate of 20 tidal volume 400 FiO2 40% and PEEP of 5 ABG showed a pO2 of 131 pCO2 34 pH of 7.30 hence kept on the same ventilator settings. He is on propofol at 65 mcg/kg/min is also 1.9 normal saline at 125 cc/h. Patient is receiving bicarb orally for low bicarb. He is also on Zosyn empirically. Patient is also on enteral feeding. Today I went ahead and placed a right radial arterial line for hemodynamic monitoring and for frequent blood draws. WBC count is 5.9 hemoglobin is 9.4. Basic metabolic profile is normal except for bicarb of 14 patient has a hyperchloremic metabolic none anion gap metabolic acidosis. Chest x-ray showed pulmonary vascular congestion, patient received a dose of Lasix earlier this morning Patient was reevaluated today on 10/28/2023, remains in the ICU, intubated and mechanically ventilated. Patient is on assist-control rate of 20 tidal volume 400 FiO2 40% PEEP of 5 ABG showed a pO2 of 160 pCO2 37 pH of 7.34, I cut down his FiO2 down to 35%. Patient is receiving propofol at 55 mcg/kg/min, he is off norepinephrine, receiving 0.9 normal saline at 125 cc/h. Continues to have intermittent episodes of coffee-ground material in the nasogastric tube, hence nutrition/enteral feeding is presently on hold. Chest x-ray is showing some minimal vascular congestion along with small effusions and atelectasis patient remains on Zosyn empirically, he will receive Lasix 1 dose today 20 mg IV push. Patient continues to have significant amount of secretions he was given a trial off sedation patient was agitated, restless, and again significant amount of secretions were noted in the endotracheal tube, hence will hold on weaning today and extubation. WBC count is 3.8 hemoglobin 8.9. Basic metabolic profile is normal, renal profile is normal Patient was reevaluated today on 10/29/2019, remains in the ICU, intubated and mechanically ventilated. Patient was extremely restless and agitated last night on lower dose of sedation, hence his propofol was increased to as high as 70 mcg/kg/min at present. He is requiring Cleviprex at 10 mg/h for tachycardia. He is on IV fluid 0.9 normal saline at 125 cc/h. Continues to have lots of secretions via the endotracheal tube. Patient is to be restarted back on tube feeding, his positioning of the endotracheal tube and nasogastric tube will be adjusted today. Remains on Zosyn his vent settings are 20/400/35%/5 ABG showed a pO2 of 78 pCO2 34 pH of 7.37 chest x-ray today is noted to show mid and lower lung opacities, slightly increased and small pleural effusions. Patient has atelectasis, and may have a component of fluid overload, will continue intermittent diuresis on this patient, patient did receive 40 mg of Lasix IV push today. Cardiogram on this admission showed good LV function ejection fraction of 55 to 60%, and no evidence of valvular heart disease Progress note dated October 30, 2023. This is a 48-year-old male who was admitted on October 21. He came into the hospital, with alcohol withdrawal syndrome. The patient was intubated on October 25 for respiratory failure. He remains on the ventilator. Settings include volume assist-control, rate 20, tidal volume 400, FiO2 35%, with a PEEP of 5. Blood gases show pO2 of 87, pCO2 of 39, pH is 7.43. The patient is on Cleviprex at 1 mg an hour, propofol at 60 mcg/kg/min, saline at KVO, and saline at 30 cc an hour. The patient continues on Zosyn. The patient's sputum revealed evidence of methicillin sensitive Staph aureus. White count is 5.7, hemoglobin 10.1, hematocrit 31.4, and platelet count was 231,000. Sodium 140, potassium 3.4, chlorides 111, CO2 25, BUN 6, creatinine 0.55. Glucose 103. AST 14. Ammonia level was normal. Chest x-ray shows bilateral interstitial and patchy opacities. Progress note dated October 31, 2023. This is a 48-year-old male who was admitted on October 21. He came into the hospital, with alcohol withdrawal syndrome. The patient was intubated on October 25 for respiratory failure. He remains on the ventilator. Current ventilator settings include volume assist-control, rate 20, tidal volume 400, FiO2 35%, PEEP of 5. Blood gases show pO2 of 88, pCO2 46, pH is 7.46. The patient is getting propofol at 70 mcg/kg/min, Cleviprex at 2 mg an hour, and Nepro tube fe edings at 19 cc an hour, which is goal. Today, we will add amlodipine at 5 mg an hour for better blood pressure control, and the patient continues on Zosyn, for staphylococci in the sputum. White count 7.2, hemoglobin 10.2, hematocrit 31, and platelet count was normal. Sodium 140, potassium 3.9, chlorides 106, CO2 31, BUN 8, creatinine 0.52. Glucose is 120. Calcium 8.8. Patient's chest x-ray shows a stable exam with small bilateral pleural effusions, and adjacent atelectasis. Progress note dated November 01, 2023. 48-year-old male who was admitted on October 21. He came to the hospital with alcohol withdrawal syndrome. The patient was intubated on October 25, for respiratory failure. He remains on the ventilator. Settings include volume assist-control, rate 20, tidal volume 400, FiO2 35%, and PEEP of 5. Blood gases show pO2 74, pCO2 45, pH is 7.47. He is on propofol at 70 mcg/kg/min, and Cleviprex at 4 mg an hour. The patient is getting saline at 50 cc an hour. He is also getting tube feedings with Nepro at 27 cc an hour, which is goal. Residuals were high. We added Reglan 10 mg every 6. In addition, because of failure to wean from mechanical ventilation, the patient will have a surgical consultation for possible tracheostomy and PEG tube placement. Current labs include a white count 6.7, hemoglobin 10, hematocrit 30.9, and a platelet count of 305,000. Sodium 139, potassium 3.9, chlorides 106, CO2 31, BUN 11, creatinine 0.62. Glucose is 109. Calcium is 9.1. Sputum from October 25 was positive for Staphylococcus aureus. Chest x-ray is largely unchanged. Objective - Vital Signs Vital signs: Vital Signs Temp 99.8 F H 11/01/23 08:00 Pulse 86 11/01/23 12:30 Resp 20 11/01/23 12:30 BP 127/88 11/01/23 12:30 Pulse Ox 98 11/01/23 12:30 FiO2 35 11/01/23 12:00 Intake & Output 10/31/23 11/01/23 11/01/23 18:59 06:59 18:59 Intake Total 7480.952 9995.627 856.143 Output Total 925 1465 1055 Balance 178.340 52.627 -198.857 Weight 76.4 kg 76.3 kg Intake: IV 370 650 400 Piperacillin-Tazobactam 3 100 100 100 .375 gm In Sodium Chloride 0.9% 100 ml @ 25 mls/hr IVPB Q8HR [facility] Rx# :[id number] Sodium Chloride 0.9% 1, 550 300 000 ml @ 10 mls/hr IV . Q24H [facility] Rx#:[id number] Sodium Chloride 0.9% 1, 270 000 ml @ 30 mls/hr IV . Q24H [facility] Rx#:[id number] Intake, IV Titration 511.340 480.627 264.143 Amount Clevidipine Butyrate 25 33.201 87.200 40.800 mg In Empty Bag 1 bag @ 1 MG/HR 2 mls/hr IV .Q24H [facility] Rx#:[id number] Piperacillin-Tazobactam 3 100 .375 gm In Sodium Chloride 0.9% 100 ml @ 25 mls/hr IVPB Q8HR [facility] Rx# :[id number] Sodium Chloride 0.9% 1, 100 50 000 ml @ 10 mls/hr IV . Q24H [facility] Rx#:[id number] propofoL 1,000 mg In 278.139 343.427 223.343 Empty Bag 1 bag @ 15 MCG/ KG/MIN 6.219 mls/hr IV . Q16H5M [facility] Rx#:[id number] Tube Feeding 222 297 162 Other 90 30 Output: Urine 925 1465 1055 Other: Voiding Method Indwelling Catheter Indwelling Catheter Indwelling Catheter ABP, PAP, CO, CI - Last Documented Arterial Blood Pressure 126/68 - Exam No acute distress, currently sedated, with an orally placed endotracheal tube. HEENT examination is grossly unremarkable. Neck supple. Full range of motion. No adenopathy thyromegaly or neck vein distention. Cardiovascular examination reveals regular rhythm rate. S1-S2 normal. No S3 or S4. No discernible murmur noted. Heart sounds are distant. Heart rate 86 bpm. Lungs reveal scattered bilateral rhonchi. No wheezes or crackles. Breath sounds equal. Saturations are 98 %. Abdomen soft, with bowel sounds. Extremities are intact. No cyanosis clubbing or edema. Skin is without rash or lesion. Neurologic examination cannot be adequately assessed at this time. - Labs CBC & Chem 7: 11/01/23 04:52 11/01/23 04:52 Labs: Abnormal Lab Results - Last 24 Hours (Table) 10/31/23 11/01/23 11/01/23 Range/Units 18:07 00:19 04:52 RBC 3.10 L (4.30-5.90) m/uL Hgb 10.0 L (13.0-17.5) gm/dL Hct 30.9 L (39.0-53.0) % Lymphocytes # (Manual) 0.80 L (1.0-4.8) k/uL Metamyelocytes # (Man) 0.20 H (0) k/uL Myelocytes # (Manual) 0.13 H (0) k/uL ABG pH (7.35-7.45) ABG pO2 (83-108) mmHg ABG HCO3 (21-25) mmol/L ABG Total CO2 (19-24) mmol/L Carbon Dioxide (22-30) mmol/L Creatinine (0.66-1.25) mg/dL Glucose (74-99) mg/dL POC Glucose (mg/dL) 114 H 112 H (70-110) mg/dL 11/01/23 11/01/23 Range/Units 04:52 05:50 RBC (4.30-5.90) m/uL Hgb (13.0-17.5) gm/dL Hct (39.0-53.0) % Lymphocytes # (Manual) (1.0-4.8) k/uL Metamyelocytes # (Man) (0) k/uL Myelocytes # (Manual) (0) k/uL ABG pH 7.47 H (7.35-7.45) ABG pO2 74 L (83-108) mmHg ABG HCO3 32 H (21-25) mmol/L ABG Total CO2 34 H (19-24) mmol/L Carbon Dioxide 31 H (22-30) mmol/L Creatinine 0.62 L (0.66-1.25) mg/dL Glucose 105 H (74-99) mg/dL POC Glucose (mg/dL) (70-110) mg/dL Microbiology - Last 24 Hours (Table) 10/26/23 14:26 Blood Culture - Final Blood 10/26/23 14:26 Blood Culture - Final Blood Assessment and Plan Assessment: Acute hypoxemic respiratory failure, secondary to acute alcohol withdrawal syn drome, status post intubation and mechanical ventilation, on October 26, 2023. Acute alcohol withdrawal with acute alcohol intoxication. Acute alcoholic pancreatitis. Hypertensive urgency. Abdominal pain, secondary to pancreatitis. Acute kidney injury. History of alcoholism. Mild transaminitis. History of coronary artery disease. Current everyday smoker. Plan: Plan dated October 30, 2023. The patient continues on Zosyn for his methicillin sensitive Staph aureus in the sputum. Labs, x-rays, medications are reviewed. The patient's overall prognosis remains guarded. The patient has had a daily interruption of sedation, becomes very agitated. We will continue to follow make recommendations along the way. Prognosis is certainly guarded. No additional recommendations at this time. Plan dated October 31, 2023. The patient remains on Zosyn, for his methicillin sensitive Staph aureus infection in the sputum/lung. Labs, x-rays, and medications are all reviewed. The patient's overall condition remains very guarded. If he does not show any progress towards weaning and extubation, by the end of the week, the patient may end up with a tracheostomy tube, and a PEG tube. We will continue to follow make recommendations along the way. Today we added amlodipine at 5 mg/day, to see if we can wean the patient off the Cleviprex. Patient continues on propofol. The patient also continues on Zosyn. Additional recommendations and suggestions are forthcoming. Plan dated November 01, 2023. The patient is seen today in room 262. The patient is on propofol, Cleviprex, a nd saline. In addition, tube feedings are currently on hold because of high residuals. Reglan will be added to the regimen. In addition, for some additional comfort for the patient, we will add fentanyl drip, at 1 mcg/kg/h, to start. In addition, we asked surgery to see the patient for possible tracheostomy and PEG tube placement. Labs, x-rays, medications are reviewed. The patient's overall prognosis remains extremely guarded. We will continue to follow, make recommendations along the way. The patient continues on Zosyn. Time with Patient: Greater than 30
--- NOTE | 2023-11-01 13:19 | P.GSCN ---
History of Present Illness Consult date: 11/01/23 History of present illness: CHIEF COMPLAINT: Abdominal pain HISTORY OF PRESENT ILLNESS: This is a 48-year-old male who presented to the emergency room with abdominal pain and was found to have evidence of acute pancreatitis. He has chronic alcohol use. Patient with acute respiratory failure secondary to alcohol withdrawal syndrome and required to be intubated and on mechanical ventilation since October 25. They are having difficulty to wean patient off the vent. Surgical service has been consulted for tracheostomy and PEG tube placement. PAST MEDICAL HISTORY: Coronary Artery Disease (CAD), Hypertension, anxiety PAST SURGICAL HISTORY: See below MEDICATIONS: See below ALLERGIES: See below SOCIAL HISTORY: No illicit drug use. Nicotine dependence. Alcohol abuse REVIEW OF SYSTEMS: Unable to obtain. Patient intubated and sedated PHYSICAL EXAM: VITAL SIGNS: Reviewed GENERAL: no acute distress. ABDOMEN: Soft. Nondistended. NEUROLOGIC: Intubated and sedated LABORATORY DATA: WBC 6.7 Hgb 10.0 platelets 305 sodium is 139 potassium 3.9 creatinine 0.62 Albumin 2.4 IMAGING: ASSESSMENT: 1. Acute hypoxic respiratory failure due to alcohol withdraw syndrome 2. Severe protein calorie malnutrition 3. Acute pancreatitis PLAN: -Patient scheduled for tracheostomy and PEG tube placement for tomorrow -Hold tube feedings after midnight -Hold Lovenox in AM [employer] Accountant note has been reviewed by physician. Signing provider agrees with the documented findings, assessment, and plan of care. Past Medical History Past Medical History: Coronary Artery Disease (CAD), Hypertension History of Any Multi-Drug Resistant Organisms: None Reported Past Anesthesia/Blood Transfusion Reactions: Unable to Obtain Past Psychological History: Anxiety Smoking Status: Current every day smoker Past Alcohol Use History: Abuse Past Drug Use History: None Reported Medications and Allergies Home Medications Medication Instructions Recorded Confirmed Type Folic Acid 1 mg PO DAILY 10/23/23 10/23/23 History Metoprolol Succinate (ER) [Toprol 100 mg PO DAILY 10/23/23 10/23/23 History Xl] Pregabalin [Lyrica] 75 mg PO BID 10/23/23 10/23/23 History Rosuvastatin [Crestor] 10 mg PO DAILY 10/23/23 10/23/23 History Sertraline HCl [Zoloft] 50 mg PO DAILY 10/23/23 10/23/23 History Sertraline [Zoloft] 100 mg PO DAILY 10/23/23 10/23/23 History Verapamil HCl [Calan Sr] 240 mg PO DAILY 10/23/23 10/23/23 History Allergies Allergy/AdvReac Type Severity Reaction Status Date / Time No Known Allergies Allergy Verified 10/23/23 09:23 Surgical - Exam Vital Signs Temp Pulse Resp BP Pulse Ox 98.3 F 101 H 18 180/128 97 10/22/23 23:29 10/22/23 23:29 10/22/23 23:29 10/22/23 23:29 10/22/23 23:29 Results - Labs 11/01/23 04:52 11/01/23 04:52 Abnormal Lab Results - Last 24 Hours (Table) 10/31/23 11/01/23 11/01/23 Range/Units 18:07 00:19 04:52 RBC 3.10 L (4.30-5.90) m/uL Hgb 10.0 L (13.0-17.5) gm/dL Hct 30.9 L (39.0-53.0) % Lymphocytes # (Manual) 0.80 L (1.0-4.8) k/uL Metamyelocytes # (Man) 0.20 H (0) k/uL Myelocytes # (Manual) 0.13 H (0) k/uL ABG pH (7.35-7.45) ABG pO2 (83-108) mmHg ABG HCO3 (21-25) mmol/L ABG Total CO2 (19-24) mmol/L Carbon Dioxide (22-30) mmol/L Creatinine (0.66-1.25) mg/dL Glucose (74-99) mg/dL POC Glucose (mg/dL) 114 H 112 H (70-110) mg/dL 11/01/23 11/01/23 Range/Units 04:52 05:50 RBC (4.30-5.90) m/uL Hgb (13.0-17.5) gm/dL Hct (39.0-53.0) % Lymphocytes # (Manual) (1.0-4.8) k/uL Metamyelocytes # (Man) (0) k/uL Myelocytes # (Manual) (0) k/uL ABG pH 7.47 H (7.35-7.45) ABG pO2 74 L (83-108) mmHg ABG HCO3 32 H (21-25) mmol/L ABG Total CO2 34 H (19-24) mmol/L Carbon Dioxide 31 H (22-30) mmol/L Creatinine 0.62 L (0.66-1.25) mg/dL Glucose 105 H (74-99) mg/dL POC Glucose (mg/dL) (70-110) mg/dL Microbiology - Last 24 Hours (Table) 10/26/23 14:26 Blood Culture - Final Blood 10/26/23 14:26 Blood Culture - Final Blood Diabetes panel 11/01/23 Range/Units 04:52 Sodium 139 (137-145) mmol/L Potassium 3.9 (3.5-5.1) mmol/L Chloride 106 (98-107) mmol/L Carbon Dioxide 31 H (22-30) mmol/L BUN 11 (9-20) mg/dL Creatinine 0.62 L (0.66-1.25) mg/dL Glucose 105 H (74-99) mg/dL Calcium 9.1 (8.4-10.2) mg/dL Calcium panel 11/01/23 Range/Units 04:52 Calcium 9.1 (8.4-10.2) mg/dL Pituitary panel 11/01/23 Range/Units 04:52 Sodium 139 (137-145) mmol/L Potassium 3.9 (3.5-5.1) mmol/L Chloride 106 (98-107) mmol/L Carbon Dioxide 31 H (22-30) mmol/L BUN 11 (9-20) mg/dL Creatinine 0.62 L (0.66-1.25) mg/dL Glucose 105 H (74-99) mg/dL Calcium 9.1 (8.4-10.2) mg/dL Adrenal panel 11/01/23 Range/Units 04:52 Sodium 139 (137-145) mmol/L Potassium 3.9 (3.5-5.1) mmol/L Chloride 106 (98-107) mmol/L Carbon Dioxide 31 H (22-30) mmol/L BUN 11 (9-20) mg/dL Creatinine 0.62 L (0.66-1.25) mg/dL Glucose 105 H (74-99) mg/dL Calcium 9.1 (8.4-10.2) mg/dL
[2023-11-01 18:04] LABS: Glucose,Whole Blood 113 mg/dL (70-110)
[2023-11-02 00:09] LABS: Glucose,Whole Blood 108 mg/dL (70-110)
[2023-11-02 04:01] LABS: HCT 29.3 % (39.0-53.0); HGB 9.8 gm/dL (13.0-17.5); Hypochromasia Slight; MCH 33.6 pg (25.0-35.0); MCHC 33.4 g/dL (31.0-37.0); MCV 100.6 fL (80.0-100.0); Macrocytosis Slight; Mean Platelet Volume 8.9; Platelet Count 333 k/uL (150-450); RBC 2.92 m/uL (4.30-5.90); RDW 14.6 % (11.5-15.5); WBC 8.1 k/uL (3.8-10.6)
[2023-11-02 04:23] LABS: African American GFR (CKD) >90 (>60 ml/min/1.73 sqM); Anion Gap 0 mmol/L; Band Neutrophils % 11 %; Blood Urea Nitrogen 13 mg/dL (9-20); Calcium 9.1 mg/dL (8.4-10.2); Carbon Dioxide 31 mmol/L (22-30); Chloride 109 mmol/L (98-107); Eosinophils # (M) 0.24 k/uL (0-0.7); Glucose 103 mg/dL (74-99); Lymphocytes # (M) 0.57 k/uL (1.0-4.8); Monocytes # (M) 0.73 k/uL (0-1.0); Neutrophils % (M) 70 %; Non-African American GFR(CKD) >90 (>60 ml/min/1.73 sqM); Nucleated Red Blood Cells 0 /100 WBC (0-0); Potassium 3.9 mmol/L (3.5-5.1); Sodium 140 mmol/L (137-145); Total Cells Counted 100
[2023-11-02] MEDS: POTASSIUM BICARBONATE/CIT AC 20 MEQ TABLET.EFF NG-TUBE SCH (05:15)
[2023-11-02 05:56] LABS: Glucose,Whole Blood 106 mg/dL (70-110)
[2023-11-02 05:58] LABS: ABG Base Excess 7.8 mmol/L; ABG HCO3 32 mmol/L (21-25); ABG Oxygen Saturation 98.7 % (94-97); ABG PCO2 49 mmHg (35-45); ABG PH 7.43 (7.35-7.45); ABG PO2 106 mmHg (83-108); ABG TCO2 34 mmol/L (19-24); Allen Test Performed? Yes
--- NOTE | 2023-11-02 08:41 | XR ---
EXAMINATION TYPE: XR chest 1V portable DATE OF EXAM: 11/02/2023 Comparison: 11/01/2023 Clinical History: 48-year-old male mechanical ventilation Findings: ET tube satisfactory. NG tube courses below the diaphragm. Heart mildly enlarged. Bilateral mid and l ower lung opacities have increased. Impression: Increasing mid and lower lung opacities, probably [id number] effusions with adjacent atelectas is and/or consolidation.
--- NOTE | 2023-11-02 10:37 | P.PN ---
Subjective Progress Note Date: 11/01/23 Patient is a 48-year-old male with known history of alcohol abuse admitted to hospital due to acute pancreatitis, acute delirium tremors. Patient is agitated, transferred to MICU and is on mechanical ventilator.. 10/30/2023 Patient is currently in the MICU. Intubated and on mechanical ventilator. Patient is on assist-control. Currently receiving Cleviprex and also on propofol. Chest x-ray showed bilateral interstitial and patchy opacities. Patient is receiving antibiotics in the home office Zosyn and sputum cultures showed MSSA. Laboratory data showed WBC 5.7 hemoglobin 10.1 platelets 231 ABG showed pH 7.43 pCO2 39 pO2 87 Sodium 140 potassium 3.4 chloride 101 bicarb is 25 BUN 16 creatinine 0.55 and blood sugar is 103 and AST 14 ALT 10 and alk phos 78 and ammonia level is 22. Albumin 2.4. Lipase 155. 10/31/2023 Patient is in the MICU and remains on medical ventilator. Patient is receiving Cleviprex drip. Also on propofol sedation. Continued on mechanical ventilator with assist-control respiratory 20 tidal volume 400 FiO2 30% and PEEP of 5. Blood pressure is elevated. Continued on antibiotics with Zosyn. Sputum culture showed MSSA. Laboratory data showed WBC 7.2 hemoglobin 10.1 platelets 266 Sodium 140 potassium 3.9 chloride 106 bicarb is 31 BUN 8 and creatinine 0.52 and blood sugar is 119 and calcium 8.8. Patient is also on IV hydration with normal saline. Pulmonary is on board. 11/01/2023 Patient is in the MICU. Remains intubated and on mechanical ventilator. Heidy t is also on Cleviprex drip and also propofol. Patient was agitated this morning with weaning trial. Also was started on fentanyl drip. Chest x-ray showed similar perihilar and interstitial, bibasilar densities possible sequela of mild CHF. Patient does have good urine output. Afebrile. Laboratory data showed WBC 6.7 hemoglobin 10.0 and platelets 305 Sodium 139 potassium 3.9 chloride 106 bicarb 31 BUN 11 and creatinine 0.68 blood sugar 105 and calcium 9.1. Current medications reviewed. Objective - Vital Signs Vital signs: Vital Signs Temp 99.8 F H 11/01/23 08:00 Pulse 107 H 11/01/23 09:01 Resp 24 11/01/23 09:00 BP 147/99 11/01/23 09:00 Pulse Ox 95 11/01/23 09:00 FiO2 35 11/01/23 08:01 Intake & Output 10/31/23 11/01/23 11/01/23 18:59 06:59 18:59 Intake Total 9507.642 9660.627 205.951 Output Total 925 1465 150 Balance 178.340 52.627 55.951 Weight 76.4 kg 76.3 kg Intake: IV 370 650 50 Piperacillin-Tazobactam 3 100 100 .375 gm In Sodium Chloride 0.9% 100 ml @ 25 mls/hr IVPB Q8HR [facility] Rx# :[id number] Sodium Chloride 0.9% 1, 270 000 ml @ 30 mls/hr IV . Q24H [facility] Rx#:[id number] Sodium Chloride 0.9% 1, 550 50 000 ml @ 50 mls/hr IV . Q20H [facility] Rx#:[id number] Intake, IV Titration 511.340 480.627 128.951 Amount Clevidipine Butyrate 25 33.201 87.200 39.467 mg In Empty Bag 1 bag @ 1 MG/HR 2 mls/hr IV .Q24H [facility] Rx#:[id number] Piperacillin-Tazobactam 3 100 .375 gm In Sodium Chloride 0.9% 100 ml @ 25 mls/hr IVPB Q8HR [facility] Rx# :[id number] Sodium Chloride 0.9% 1, 100 50 000 ml @ 50 mls/hr IV . Q20H [facility] Rx#:[id number] propofoL 1,000 mg In 278.139 343.427 89.484 Empty Bag 1 bag @ 15 MCG/ KG/MIN 6.219 mls/hr IV . Q16H5M [facility] Rx#:[id number] Tube Feeding 222 297 27 Other 90 Output: Urine 925 1465 150 Other: Voiding Method Indwelling Catheter Indwelling Catheter ABP, PAP, CO, CI - Last Documented Arterial Blood Pressure 136/72 - Exam PHYSICAL EXAMINATION: Patient is sedated, intubated and on mechanical ventilator.. HEENT: Normocephalic. Neck is supple. Pupils reactive. Nostrils clear. Oral cavity is moist. Neck reveals no JVD, carotid bruits, or thyromegaly. CHEST EXAMINATION: Trachea is central. Symmetrical expansion. Lung ghotra clear to auscultation and percussion. CARDIAC: Normal S1, S2 with no gallops. No murmurs ABDOMEN: Soft. Bowel sounds normal. No organomegaly. No abdominal bruits. Extremities: reveal no edema. No clubbing or cyanosis Neurologically sedated and intubated. No gross focal deficits noted Skin: No rash or skin lesions. Psychiatric: Could not be assessed at this time Musculoskeletal: No joint swelling or deformity. - Labs CBC & Chem 7: 11/02/23 03:48 11/02/23 03:48 Labs: Abnormal Lab Results - Last 24 Hours (Table) 10/31/23 10/31/23 11/01/23 Range/Units 12:29 18:07 00:19 RBC (4.30-5.90) m/uL Hgb (13.0-17.5) gm/dL Hct (39.0-53.0) % Lymphocytes # (Manual) (1.0-4.8) k/uL Metamyelocytes # (Man) (0) k/uL Myelocytes # (Manual) (0) k/uL ABG pH (7.35-7.45) ABG pO2 (83-108) mmHg ABG HCO3 (21-25) mmol/L ABG Total CO2 (19-24) mmol/L Carbon Dioxide (22-30) mmol/L Creatinine (0.66-1.25) mg/dL Glucose (74-99) mg/dL POC Glucose (mg/dL) 122 H 114 H 112 H (70-110) mg/dL 11/01/23 11/01/23 11/01/23 Range/Units 04:52 04:52 05:50 RBC 3.10 L (4.30-5.90) m/uL Hgb 10.0 L (13.0-17.5) gm/dL Hct 30.9 L (39.0-53.0) % Lymphocytes # (Manual) 0.80 L (1.0-4.8) k/uL Metamyelocytes # (Man) 0.20 H (0) k/uL Myelocytes # (Manual) 0.13 H (0) k/uL ABG pH 7.47 H (7.35-7.45) ABG pO2 74 L (83-108) mmHg ABG HCO3 32 H (21-25) mmol/L ABG Total CO2 34 H (19-24) mmol/L Carbon Dioxide 31 H (22-30) mmol/L Creatinine 0.62 L (0.66-1.25) mg/dL Glucose 105 H (74-99) mg/dL POC Glucose (mg/dL) (70-110) mg/dL Microbiology - Last 24 Hours (Table) 10/26/23 14:26 Blood Culture - Final Blood 10/26/23 14:26 Blood Culture - Final Blood Assessment and Plan Assessment: Acute hypoxemic respiratory failure second alcohol withdrawal symptoms and DTs currently intubated and on mechanical ventilator since October 26, 2023 Acute alcohol withdrawal symptoms and DTs Uncontrolled hypertension. Improved now. Acute pancreatitis likely alcohol-related Acute kidney injury likely prerenal improved now. Severe alcohol abuse Mild transaminitis improved History of coronary disease Currently everyday smoker GI and DVT prophylaxis Plan: Patient is on mechanical ventilator. Continued on Cleviprex and also on propofol drip. Fentanyl drip was added. Continue to titrate blood pressure medications. Patient will be continued on gentle IV hydration. Monitor urine output. Antibiotics have been discontinued. Daily weaning trials as per critical care team. Continue to follow closely. Time with Patient: Greater than 30
[2023-11-02] MEDS: METOPROLOL TARTRATE 50 MG TAB PO SCH (11:37)
[2023-11-02 11:44] LABS: Glucose,Whole Blood 96 mg/dL (70-110)
--- NOTE | 2023-11-02 12:33 | P.PN ---
Subjective Progress Note Date: 11/02/23 Principal diagnosis: Respiratory failure. Patient is a 48-year-old white male with past medical history significant for hypertension, coronary artery disease, current everyday smoker, and alcohol abuse. He was transferred from [facility] 10/22/2023 for acute pancreatitis. He was noted to be intoxicated on arrival to outside facility, with an alcohol level of 34 mg/dL, while at our facility developed impending acute alcohol withdrawal delirium tremens. He required ICU admission for Precedex infusion. Patient is currently lethargic and not a very good historian . After reviewing the medical records from the outside facility, it appears he presented with abdominal pain. He was also noted to have severely elevated lipase and amylase levels. An abdominal and pelvis CT was performed, which identified peripancreatic inflammatory stranding and fluid consistent with acute pancreatitis. No pseudocyst, abscess, or pancreatic necrosis. No gallstones or ductal dilation. There was decreased attenuation of the hepatic parenchyma, suggestive of fatty infiltration. Patient was dehdydrated and noted to have sustained an WILFRIDO. It appears he was fluid resuscitated with 2 L of crystalloid fluid. He was then transferred to [facility]. He was noted to be steffany tated and combative. He had received multiple doses of Ativan, I am told a total of 16 mg. He was also receiving Haldol. Despite this, he had sustained recorded CIWA scores greater than 28, and for this reason he was placed on a Precedex infusion and admitted to the intensive care unit. Most recent CBC from yesterday: WBC count 7.6, hemoglobin 13.9, hematocrit 42, platelets 110. Most recent CMP from yesterday: Sodium 138, potassium 4.4, chloride 108, serum bicarb 19, BUN 18, creatinine 1.13, glucose 94. AST 97, ALT 74, ALP 156, total bilirubin 1. Lipase 11,329 and amylase 1468. Patient is currently lethargic and not making much sense when talking. Unsure of when last drink was. Precedex is infusing at 0.4 mcg/kg/h. He does have bilateral upper extremity soft restraints on, which likely can be discontinued. Blood pressure is noted to be hypertensive, has received a clonidine 0.2 mg patch, which is fallen off and will be replaced. EKG shows normal sinus rhythm without any obvious acute ischemic changes. Patient's pain appears well-managed with current regimen of as needed Dilaudid. He does have some facial grimacing with palpation of the bilateral upper abdomen. Normal saline is infusing at 150 MLS per hour. Currently on room air, in no acute respiratory distress. Afebrile. He has been moved to room 262 in the intensive care unit. Patient was evaluated today on 10/25/2023, remains in the ICU, remains on Precedex at 1 mcg/kg/h. Remains on Cleviprex. Remains on Ativan intermittently and on Haldol. In spite of all of this the patient continues to have episodes of extreme agitation and restlessness. And seems to be delirious. Continues to have a sitter at bedside. His WBC is 7.8 hemoglobin 11.3 basic metabolic profile is normal renal profile is normal however his bicarb is 15, lipase is down to 164 today, it was 1668 yesterday, amylase is down to 112 from 598 yesterday obviously his acute pancreatitis is improving chest x-ray showed no evidence of active disease, minimal pulmonary vascular prominence Reevaluate today on 10/26/2023, patient remains in the ICU, he is on room air, continues to have intermittent episodes of extreme agitation, remains on Precedex at 1.4 mcg/kg/h, remains on Ativan intermittently and Haldol intermittently, nonetheless continues to have episodes of significant agitations. Patient is on the CIWA protocol, he seems to require suctioning of his oropharynx, purulent material is noted, patient does have gag with sucti oning and able to protect his airways. But he has a very poor cough reflex. At any rate patient will need to be on oral medications, and I am recommending a nasogastric tube to be placed today, if the patient continues to do poorly may have to consider intubation and mechanical ventilation, however this will be the last resort. In the meantime I believe the patient will remain on the same medications he is presently on and will remain on the CIWA protocol. Needs definitely close monitoring in the ICU. Patient is purulent secretions I recommended empirically starting the patient on Zosyn. WBC count is 7.4 hemoglobin 11.3 basic metabolic profile is normal except for low potassium of 3.2 renal profile is normal lipase is down to 72 amylase is normal Patient was reevaluated today on 10/27/2023, patient received significant amount of sedation yesterday, and continued to be restless and agitated, at 1 point he desaturated, and he was gurgling with secretions, I was made aware of the clarisa trevino and recommended intubation. Patient was intubated and placed on mechanical ventilation overnight, he is on assist-control rate of 20 tidal volume 400 FiO2 40% and PEEP of 5 ABG showed a pO2 of 131 pCO2 34 pH of 7.30 hence kept on the same ventilator settings. He is on propofol at 65 mcg/kg/min is also 1.9 normal saline at 125 cc/h. Patient is receiving bicarb orally for low bicarb. He is also on Zosyn empirically. Patient is also on enteral feeding. Today I went ahead and placed a right radial arterial line for hemodynamic monitoring and for frequent blood draws. WBC count is 5.9 hemoglobin is 9.4. Basic metabolic profile is normal except for bicarb of 14 patient has a hyperchloremic metabolic none anion gap metabolic acidosis. Chest x-ray showed pulmonary vascular congestion, patient received a dose of Lasix earlier this morning Patient was reevaluated today on 10/28/2023, remains in the ICU, intubated and mechanically ventilated. Patient is on assist-control rate of 20 tidal volume 400 FiO2 40% PEEP of 5 ABG showed a pO2 of 160 pCO2 37 pH of 7.34, I cut down his FiO2 down to 35%. Patient is receiving propofol at 55 mcg/kg/min, he is off norepinephrine, receiving 0.9 normal saline at 125 cc/h. Continues to have intermittent episodes of coffee-ground material in the nasogastric tube, hence nutrition/enteral feeding is presently on hold. Chest x-ray is showing some minimal vascular congestion along with small effusions and atelectasis patient remains on Zosyn empirically, he will receive Lasix 1 dose today 20 mg IV push. Patient continues to have significant amount of secretions he was given a trial off sedation patient was agitated, restless, and again significant amount of secretions were noted in the endotracheal tube, hence will hold on weaning today and extubation. WBC count is 3.8 hemoglobin 8.9. Basic metabolic profile is normal, renal profile is normal Patient was reevaluated today on 10/29/2019, remains in the ICU, intubated and mechanically ventilated. Patient was extremely restless and agitated last night on lower dose of sedation, hence his propofol was increased to as high as 70 mcg/kg/min at present. He is requiring Cleviprex at 10 mg/h for tachycardia. He is on IV fluid 0.9 normal saline at 125 cc/h. Continues to have lots of secretions via the endotracheal tube. Patient is to be restarted back on tube feeding, his positioning of the endotracheal tube and nasogastric tube will be adjusted today. Remains on Zosyn his vent settings are 20/400/35%/5 ABG showed a pO2 of 78 pCO2 34 pH of 7.37 chest x-ray today is noted to show mid and lower lung opacities, slightly increased and small pleural effusions. Patient has atelectasis, and may have a component of fluid overload, will continue intermittent diuresis on this patient, patient did receive 40 mg of Lasix IV push today. Cardiogram on this admission showed good LV function ejection fraction of 55 to 60%, and no evidence of valvular heart disease Progress note dated October 30, 2023. This is a 48-year-old male who was admitted on October 21. He came into the hospital, with alcohol withdrawal syndrome. The patient was intubated on October 25 for respiratory failure. He remains on the ventilator. Settings include volume assist-control, rate 20, tidal volume 400, FiO2 35%, with a PEEP of 5. Blood gases show pO2 of 87, pCO2 of 39, pH is 7.43. The patient is on Cleviprex at 1 mg an hour, propofol at 60 mcg/kg/min, saline at KVO, and saline at 30 cc an hour. The patient continues on Zosyn. The patient's sputum revealed evidence of methicillin sensitive Staph aureus. White count is 5.7, hemoglobin 10.1, hematocrit 31.4, and platelet count was 231,000. Sodium 140, potassium 3.4, chlorides 111, CO2 25, BUN 6, creatinine 0.55. Glucose 103. AST 14. Ammonia level was normal. Chest x-ray shows bilateral interstitial and patchy opacities. Progress note dated October 31, 2023. This is a 48-year-old male who was admitted on October 21. He came into the hospital, with alcohol withdrawal syndrome. The patient was intubated on October 25 for respiratory failure. He remains on the ventilator. Current ventilator settings include volume assist-control, rate 20, tidal volume 400, FiO2 35%, PEEP of 5. Blood gases show pO2 of 88, pCO2 46, pH is 7.46. The patient is getting propofol at 70 mcg/kg/min, Cleviprex at 2 mg an hour, and Nepro tube fe edings at 19 cc an hour, which is goal. Today, we will add amlodipine at 5 mg an hour for better blood pressure control, and the patient continues on Zosyn, for staphylococci in the sputum. White count 7.2, hemoglobin 10.2, hematocrit 31, and platelet count was normal. Sodium 140, potassium 3.9, chlorides 106, CO2 31, BUN 8, creatinine 0.52. Glucose is 120. Calcium 8.8. Patient's chest x-ray shows a stable exam with small bilateral pleural effusions, and adjacent atelectasis. Progress note dated November 01, 2023. 48-year-old male who was admitted on October 21. He came to the hospital with alcohol withdrawal syndrome. The patient was intubated on October 25, for respiratory failure. He remains on the ventilator. Settings include volume assist-control, rate 20, tidal volume 400, FiO2 35%, and PEEP of 5. Blood gases show pO2 74, pCO2 45, pH is 7.47. He is on propofol at 70 mcg/kg/min, and Cleviprex at 4 mg an hour. The patient is getting saline at 50 cc an hour. He is also getting tube feedings with Nepro at 27 cc an hour, which is goal. Residuals were high. We added Reglan 10 mg every 6. In addition, because of failure to wean from mechanical ventilation, the patient will have a surgical consultation for possible tracheostomy and PEG tube placement. Current labs include a white count 6.7, hemoglobin 10, hematocrit 30.9, and a platelet count of 305,000. Sodium 139, potassium 3.9, chlorides 106, CO2 31, BUN 11, creatinine 0.62. Glucose is 109. Calcium is 9.1. Sputum from October 25 was positive for Staphylococcus aureus. Chest x-ray is largely unchanged. Progress note dated November 02, 2023. The patient is seen today in room 262. 48-year-old male admitted on October 21. He came into the hospital with alcohol withdrawal syndrome. He was intubated for respiratory failure on October 26, 2023. He remains on the ventilator. Ventilator settings include volume assist-control, rate 20, tidal volume 400, FiO2 35%, and PEEP of 5. Blood gases show pO2 106, pCO2 49, pH is 7.43. The patient is on saline at 20 cc an hour, propofol at 60 mcg/kg/min, and fentanyl 1 mcg/kg/h. He is getting Zosyn IV. The patient is scheduled to have a possible tracheostomy and PEG tube placement today. White count is 8.1, hemoglobin 9.8, hematocrit 29.3, platelet count normal. Sodium 140, potassium 3.9, chlorides 109, CO2 31, BUN 13, creatinine 0.73. Glucose is 96. Calcium 9.1. Sputum Gram stain from 418, showed evidence of Staphylococcus aureus. Chest x-ray shows b ilateral lung opacities. Chest x-ray is essentially unchanged. Objective - Vital Signs Vital signs: Vital Signs Temp 98.8 F 11/02/23 12:00 Pulse 112 H 11/02/23 12:00 Resp 11 L 11/02/23 12:00 BP 122/87 11/02/23 12:00 Pulse Ox 95 11/02/23 12:00 FiO2 35 11/02/23 12:00 Intake & Output 11/01/23 11/02/23 11/02/23 18:59 06:59 18:59 Intake Total 1700.222 707.145 314.217 Output Total 2290 715 355 Balance -589.778 -7.855 -40.783 Weight 76 kg Intake: IV 400 210 180 Piperacillin-Tazobactam 3 100 100 100 .375 gm In Sodium Chloride 0.9% 100 ml @ 25 mls/hr IVPB Q8HR [facility] Rx# :[id number] Sodium Chloride 0.9% 1, 300 110 80 000 ml @ 10 mls/hr IV . Q24H [facility] Rx#:[id number] Intake, IV Titration 644.222 332.145 134.217 Amount Clevidipine Butyrate 25 48.400 53.967 0 mg In Empty Bag 1 bag @ 1 MG/HR 2 mls/hr IV .Q24H [facility] Rx#:[id number] Piperacillin-Tazobactam 3 100 .375 gm In Sodium Chloride 0.9% 100 ml @ 25 mls/hr IVPB Q8HR [facility] Rx# :[id number] Sodium Chloride 0.9% 1, 60 10 000 ml @ 10 mls/hr IV . Q24H [facility] Rx#:[id number] fentaNYL (PF). 1,000 mcg 65.491 100 In Sodium Chloride 0.9% 80 ml @ 1 MCG/KG/HR 7.63 mls/hr IV .Q13H7M [facility] Rx# :[id number] propofoL 1,000 mg In 370.331 268.178 34.217 Empty Bag 1 bag @ 15 MCG/ KG/MIN 6.219 mls/hr IV . Q16H5M [facility] Rx#:[id number] Tube Feeding 324 135 Other 332 30 Output: Urine 2290 715 355 Other: Voiding Method Indwelling Catheter Indwelling Catheter ABP, PAP, CO, CI - Last Documented Arterial Blood Pressure 154/78 - Exam No acute distress, currently sedated, with an orally placed endotracheal tube. HEENT examination is grossly unremarkable. Neck supple. Full range of motion. No adenopathy thyromegaly or neck vein distention. Cardiovascular examination reveals regular rhythm rate. S1-S2 normal. No S3 or S4. No discernible murmur noted. Heart sounds are distant. Heart rate 100 bpm. Lungs reveal scattered bilateral rhonchi. No wheezes or crackles. Breath sounds equal. Saturations are 95 %. Abdomen soft, with bowel sounds. Extremities are intact. No cyanosis clubbing or edema. Skin is without rash or lesion. Neurologic examination cannot be adequately assessed at this time. - Labs CBC & Chem 7: 11/02/23 03:48 11/02/23 03:48 Labs: Abnormal Lab Results - Last 24 Hours (Table) 11/01/23 11/02/23 11/02/23 Range/Units 18:03 03:48 03:48 RBC 2.92 L (4.30-5.90) m/uL Hgb 9.8 L (13.0-17.5) gm/dL Hct 29.3 L (39.0-53.0) % MCV 100.6 H (80.0-100.0) fL Lymphocytes # (Manual) 0.57 L (1.0-4.8) k/uL ABG pCO2 (35-45) mmHg ABG HCO3 (21-25) mmol/L ABG Total CO2 (19-24) mmol/L ABG O2 Saturation (94-97) % Chloride 109 H (98-107) mmol/L Carbon Dioxide 31 H (22-30) mmol/L Glucose 103 H (74-99) mg/dL POC Glucose (mg/dL) 113 H (70-110) mg/dL 11/02/23 Range/Units 05:54 RBC (4.30-5.90) m/uL Hgb (13.0-17.5) gm/dL Hct (39.0-53.0) % MCV (80.0-100.0) fL Lymphocytes # (Manual) (1.0-4.8) k/uL ABG pCO2 49 H (35-45) mmHg ABG HCO3 32 H (21-25) mmol/L ABG Total CO2 34 H (19-24) mmol/L ABG O2 Saturation 98.7 H (94-97) % Chloride (98-107) mmol/L Carbon Dioxide (22-30) mmol/L Glucose (74-99) mg/dL POC Glucose (mg/dL) (70-110) mg/dL Assessment and Plan Assessment: Acute hypoxemic respiratory failure, secondary to acute alcohol withdrawal synd janiya, status post intubation and mechanical ventilation, on October 26, 2023. Anticipated tracheostomy and PEG tube placement, November 02, 2023. Acute alcohol withdrawal with acute alcohol intoxication. Acute alcoholic pancreatitis. Hypertensive urgency. Abdominal pain, secondary to pancreatitis. Acute kidney injury. History of alcoholism. Mild transaminitis. History of coronary artery disease. Current everyday smoker. Plan: Plan dated October 30, 2023. The patient continues on Zosyn for his methicillin sensitive Staph aureus in the sputum. Labs, x-rays, medications are reviewed. The patient's overall prognosis remains guarded. The patient has had a daily interruption of sedation, becomes very agitated. We will continue to follow make recommendations along the way. Prognosis is certainly guarded. No additional recommendations at this time. Plan dated October 31, 2023. The patient remains on Zosyn, for his methicillin sensitive Staph aureus infection in the sputum/lung. Labs, x-rays, and medications are all reviewed. The patient's overall condition remains very guarded. If he does not show any progress towards weaning and extubation, by the end of the week, the patient may end up with a tracheostomy tube, and a PEG tube. We will continue to follow make recommendations along the way. Today we added amlodipine at 5 mg/day, to see if we can wean the patient off the Cleviprex. Patient continues on propofol. The patient also continues on Zosyn. Additional recommendations and suggestions are forthcoming. Plan dated November 01, 2023. The patient is seen today in room 262. The patient is on propofol, Cleviprex, and saline. In addition, tube feedings are currently on hold because of high residuals. Reglan will be added to the regimen. In addition, for some additional comfort for the patient, we will add fentanyl drip, at 1 mcg/kg/h, to start. In addition, we asked surgery to see the patient for possible tracheostomy and PEG tube placement. Labs, x-rays, medications are reviewed. The patient's overall prognosis remains extremely guarded. We will continue to follow, make recommendations along the way. The patient continues on Zosyn. Plan dated November 02, 2023. The patient remains on propofol at 60 mcg/kg/min, and fentanyl at 1 mcg/kg/h. The patient also continues on Zosyn. The patient is scheduled for tracheostomy and PEG tube placement today. Blood gases show pO2 of 106, pCO2 of 49, pH is 7.43. Labs, x-rays, and medications are reviewed. We will continue to follow the patient, make recommendations along the way. The patient's overall prognosis remains very guarded. Time with Patient: Greater than 30
--- NOTE | 2023-11-02 15:05 | P.PN ---
Subjective Progress Note Date: 11/02/23 CHIEF COMPLAINT: Abdominal pain HISTORY OF PRESENT ILLNESS: Patient mid to the hospital was hypoxic respiratory failure due to alcohol withdrawal and acute pancreatitis. Patient in the ICU intubated and on mechanical ventilation. Difficulty to wean from vent. Patient scheduled for tracheostomy and PEG tube placement today. Vital stable. PHYSICAL EXAM: VITAL SIGNS: Reviewed. GENERAL: no acute distress. ABDOMEN: Soft. Nondistended. Nontender. Neuro. Intubated and sedated ASSESSMENT: 1. Acute hypoxic respiratory failure due to alcohol withdraw syndrome 2. Severe protein calorie malnutrition 3. Acute pancreatitis PLAN: -Patient scheduled for tracheostomy and PEG tube placement today -Tube feeds on hold Physician Wheel Cleaner note has been reviewed by physician. Signing provider agrees with the documented findings, assessment, and plan of care. Objective - Vital Signs Vital signs: Vital Signs Temp 98.1 F 11/02/23 09:00 Pulse 103 H 11/02/23 11:09 Resp 19 11/02/23 11:00 BP 134/96 11/02/23 11:00 Pulse Ox 99 11/02/23 11:00 FiO2 35 11/02/23 10:56 Intake & Output 11/01/23 11/02/23 11/02/23 18:59 06:59 18:59 Intake Total 1700.222 707.145 294.217 Output Total 2290 715 295 Balance -589.778 -7.855 -0.783 Weight 76 kg Intake: IV 400 210 160 Piperacillin-Tazobactam 3 100 100 100 .375 gm In Sodium Chloride 0.9% 100 ml @ 25 mls/hr IVPB Q8HR [facility] Rx# :[id number] Sodium Chloride 0.9% 1, 300 110 60 000 ml @ 10 mls/hr IV . Q24H [facility] Rx#:[id number] Intake, IV Titration 644.222 332.145 134.217 Amount Clevidipine Butyrate 25 48.400 53.967 mg In Empty Bag 1 bag @ 1 MG/HR 2 mls/hr IV .Q24H [facility] Rx#:[id number] Piperacillin-Tazobactam 3 100 .375 gm In Sodium Chloride 0.9% 100 ml @ 25 mls/hr IVPB Q8HR [facility] Rx# :[id number] Sodium Chloride 0.9% 1, 60 10 000 ml @ 10 mls/hr IV . Q24H [facility] Rx#:[id number] fentaNYL (PF). 1,000 mcg 65.491 100 In Sodium Chloride 0.9% 80 ml @ 1 MCG/KG/HR 7.63 mls/hr IV .Q13H7M [facility] Rx# :[id number] propofoL 1,000 mg In 370.331 268.178 34.217 Empty Bag 1 bag @ 15 MCG/ KG/MIN 6.219 mls/hr IV . Q16H5M [facility] Rx#:[id number] Tube Feeding 324 135 Other 332 30 Output: Urine 2290 715 295 Other: Voiding Method Indwelling Catheter Indwelling Catheter ABP, PAP, CO, CI - Last Documented Arterial Blood Pressure 156/86 - Labs CBC & Chem 7: 11/02/23 03:48 11/02/23 03:48 Labs: Abnormal Lab Results - Last 24 Hours (Table) 11/01/23 11/02/23 11/02/23 Range/Units 18:03 03:48 03:48 RBC 2.92 L (4.30-5.90) m/uL Hgb 9.8 L (13.0-17.5) gm/dL Hct 29.3 L (39.0-53.0) % MCV 100.6 H (80.0-100.0) fL Lymphocytes # (Manual) 0.57 L (1.0-4.8) k/uL ABG pCO2 (35-45) mmHg ABG HCO3 (21-25) mmol/L ABG Total CO2 (19-24) mmol/L ABG O2 Saturation (94-97) % Chloride 109 H (98-107) mmol/L Carbon Dioxide 31 H (22-30) mmol/L Glucose 103 H (74-99) mg/dL POC Glucose (mg/dL) 113 H (70-110) mg/dL 11/02/23 Range/Units 05:54 RBC (4.30-5.90) m/uL Hgb (13.0-17.5) gm/dL Hct (39.0-53.0) % MCV (80.0-100.0) fL Lymphocytes # (Manual) (1.0-4.8) k/uL ABG pCO2 49 H (35-45) mmHg ABG HCO3 32 H (21-25) mmol/L ABG Total CO2 34 H (19-24) mmol/L ABG O2 Saturation 98.7 H (94-97) % Chloride (98-107) mmol/L Carbon Dioxide (22-30) mmol/L Glucose (74-99) mg/dL POC Glucose (mg/dL) (70-110) mg/dL
[2023-11-02 17:52] LABS: Glucose,Whole Blood 94 mg/dL (70-110)
[2023-11-02] MEDS: SODIUM CHLORIDE 0.9% 1,000 ML IV ONE (18:15)
[2023-11-02] MEDS ORDERED: fentaNYL (PF) 50 MCG/ML 2 ML AMP ONE (18:30)
[2023-11-02] MEDS ORDERED: KETAMINE HCL IN 0.9 % NACL 50 MG/5 ML SYRINGE ONE (18:30)
[2023-11-02] MEDS ORDERED: ROCURONIUM 10 MG/ML (5 ML VIAL) IV ONE (18:30)
[2023-11-02] MEDS ORDERED: PROPOFOL 10 MG/ML 20 ML VIAL IV ONE (18:30)
[2023-11-02] MEDS ORDERED: MIDAZOLAM 2 MG/2 ML VIAL ONE (18:30)
--- NOTE | 2023-11-02 22:16 | P.PN ---
Subjective Progress Note Date: 11/02/23 Patient is a 48-year-old male with known history of alcohol abuse admitted to hospital due to acute pancreatitis, acute delirium tremors. Patient is agitated, transferred to MICU and is on mechanical ventilator.. 10/30/2023 Patient is currently in the MICU. Intubated and on mechanical ventilator. Patient is on assist-control. Currently receiving Cleviprex and also on propofol. Chest x-ray showed bilateral interstitial and patchy opacities. Patient is receiving antibiotics in the home office Zosyn and sputum cultures showed MSSA. Laboratory data showed WBC 5.7 hemoglobin 10.1 platelets 231 ABG showed pH 7.43 pCO2 39 pO2 87 Sodium 140 potassium 3.4 chloride 101 bicarb is 25 BUN 16 creatinine 0.55 and blood sugar is 103 and AST 14 ALT 10 and alk phos 78 and ammonia level is 22. Albumin 2.4. Lipase 155. 10/31/2023 Patient is in the MICU and remains on medical ventilator. Patient is receiving Cleviprex drip. Also on propofol sedation. Continued on mechanical ventilator with assist-control respiratory 20 tidal volume 400 FiO2 30% and PEEP of 5. Blood pressure is elevated. Continued on antibiotics with Zosyn. Sputum culture showed MSSA. Laboratory data showed WBC 7.2 hemoglobin 10.1 platelets 266 Sodium 140 potassium 3.9 chloride 106 bicarb is 31 BUN 8 and creatinine 0.52 and blood sugar is 119 and calcium 8.8. Patient is also on IV hydration with normal saline. Pulmonary is on board. 11/01/2023 Patient is in the MICU. Remains intubated and on mechanical ventilator. Heidy t is also on Cleviprex drip and also propofol. Patient was agitated this morning with weaning trial. Also was started on fentanyl drip. Chest x-ray showed similar perihilar and interstitial, bibasilar densities possible sequela of mild CHF. Patient does have good urine output. Afebrile. Laboratory data showed WBC 6.7 hemoglobin 10.0 and platelets 305 Sodium 139 potassium 3.9 chloride 106 bicarb 31 BUN 11 and creatinine 0.68 blood sugar 105 and calcium 9.1. 11/02/2023 Patient is in the MICU. Admitted to the hospital due to alcohol withdrawal symptoms and possible DTs. Remains on mechanical ventilator with assist control respiratory rate 20, tidal volume 400 FiO2 30% and PEEP of 5. Patient is on propofol and fentanyl drip. Cleviprex is on hold. Patient is also on and off of Zosyn. Chest x-ray showed increasing mid and lower lung opacities, probably small to moderate effusions with adjacent atelectasis and/or consolidation. Patient is on IV hydration at 20 cc/h. Blood pressure is better controlled. Laboratory data showed WBC 8.1 hemoglobin 9.8 and platelets 333 Sodium 140 potassium 3.9 chloride 109 bicarb is 31 BUN 39 creatinine 0.73 and blood sugar 103 and calcium 9.1. General surgery is on board and is planning for trach and PEG tube placement. Critical care services is following. Current medications reviewed. Objective - Vital Signs Vital signs: Vital Signs Temp 98.1 F 11/02/23 09:00 Pulse 101 H 11/02/23 09:30 Resp 20 11/02/23 09:30 BP 124/88 11/02/23 09:30 Pulse Ox 98 11/02/23 09:30 FiO2 35 11/02/23 09:00 Intake & Output 11/01/23 11/02/23 11/02/23 18:59 06:59 18:59 Intake Total 1700.222 707.145 164.217 Output Total 2290 715 195 Balance -589.778 -7.855 -30.783 Weight 76 kg Intake: IV 400 210 30 Piperacillin-Tazobactam 3 100 100 .375 gm In Sodium Chloride 0.9% 100 ml @ 25 mls/hr IVPB Q8HR [facility] Rx# :[id number] Sodium Chloride 0.9% 1, 300 110 30 000 ml @ 10 mls/hr IV . Q24H [facility] Rx#:[id number] Intake, IV Titration 644.222 332.145 134.217 Amount Clevidipine Butyrate 25 48.400 53.967 mg In Empty Bag 1 bag @ 1 MG/HR 2 mls/hr IV .Q24H [facility] Rx#:[id number] Piperacillin-Tazobactam 3 100 .375 gm In Sodium Chloride 0.9% 100 ml @ 25 mls/hr IVPB Q8HR [facility] Rx# :[id number] Sodium Chloride 0.9% 1, 60 10 000 ml @ 10 mls/hr IV . Q24H [facility] Rx#:[id number] fentaNYL (PF). 1,000 mcg 65.491 100 In Sodium Chloride 0.9% 80 ml @ 1 MCG/KG/HR 7.63 mls/hr IV .Q13H7M [facility] Rx# :[id number] propofoL 1,000 mg In 370.331 268.178 34.217 Empty Bag 1 bag @ 15 MCG/ KG/MIN 6.219 mls/hr IV . Q16H5M [facility] Rx#:[id number] Tube Feeding 324 135 Other 332 30 Output: Urine 2290 715 195 Other: Voiding Method Indwelling Catheter Indwelling Catheter ABP, PAP, CO, CI - Last Documented Arterial Blood Pressure 132/71 - Exam PHYSICAL EXAMINATION: Patient is sedated, intubated and on mechanical ventilator.. HEENT: Normocephalic. Neck is supple. Pupils reactive. Nostrils clear. Oral cavity is moist. Neck reveals no JVD, carotid bruits, or thyromegaly. CHEST EXAMINATION: Trachea is central. Symmetrical expansion. Lung ghotra clear to auscultation and percussion. CARDIAC: Normal S1, S2 with no gallops. No murmurs ABDOMEN: Soft. Bowel sounds normal. No organomegaly. No abdominal bruits. Extremities: reveal no edema. No clubbing or cyanosis Neurologically sedated and intubated. No gross focal deficits noted Skin: No rash or skin lesions. Psychiatric: Could not be assessed at this time Musculoskeletal: No joint swelling or deformity. - Labs CBC & Chem 7: 11/02/23 03:48 11/02/23 03:48 Labs: Abnormal Lab Results - Last 24 Hours (Table) 11/01/23 11/02/23 11/02/23 Range/Units 18:03 03:48 03:48 RBC 2.92 L (4.30-5.90) m/uL Hgb 9.8 L (13.0-17.5) gm/dL Hct 29.3 L (39.0-53.0) % MCV 100.6 H (80.0-100.0) fL Lymphocytes # (Manual) 0.57 L (1.0-4.8) k/uL ABG pCO2 (35-45) mmHg ABG HCO3 (21-25) mmol/L ABG Total CO2 (19-24) mmol/L ABG O2 Saturation (94-97) % Chloride 109 H (98-107) mmol/L Carbon Dioxide 31 H (22-30) mmol/L Glucose 103 H (74-99) mg/dL POC Glucose (mg/dL) 113 H (70-110) mg/dL 11/02/23 Range/Units 05:54 RBC (4.30-5.90) m/uL Hgb (13.0-17.5) gm/dL Hct (39.0-53.0) % MCV (80.0-100.0) fL Lymphocytes # (Manual) (1.0-4.8) k/uL ABG pCO2 49 H (35-45) mmHg ABG HCO3 32 H (21-25) mmol/L ABG Total CO2 34 H (19-24) mmol/L ABG O2 Saturation 98.7 H (94-97) % Chloride (98-107) mmol/L Carbon Dioxide (22-30) mmol/L Glucose (74-99) mg/dL POC Glucose (mg/dL) (70-110) mg/dL Assessment and Plan Assessment: Acute hypoxemic respiratory failure second alcohol withdrawal symptoms and DTs currently intubated and on mechanical ventilator since October 26, 2023 Acute alcohol withdrawal symptoms and DTs Uncontrolled hypertension. Improved now. Acute pancreatitis likely alcohol-related Acute kidney injury likely prerenal improved now. Severe alcohol abuse Mild transaminitis improved History of coronary disease Currently everyday smoker GI and DVT prophylaxis Plan: Patient is on mechanical ventilator. Continued on propofol and fentanyl drip was added. Cleviprex is off. Continue to titrate blood pressure medications. Continue with tube feedings. IV fluids to KVO.. Monitor urine output. Antibiotics have been discontinued. Daily weaning trials as per critical care team. General surgery was consulted for possible trach and PEG tube placement Continue to follow closely. Time with Patient: Greater than 30
[2023-11-03 00:08] LABS: Glucose,Whole Blood 85 mg/dL (70-110)
--- NOTE | 2023-11-03 02:16 | XR ---
EXAM: XR chest 1V portable CLINICAL INDICATION:Male, 48 years old with history of NG placement; LOCATED WITHIN [facility] COMPARISON: Chest x-ray 11/02/2023 5:45 AM and before TECHNIQUE: Chest single view. FINDINGS: ET tube has been exchanged for some sort of tracheostomy cannula device, which appears in good positi on. NG tube extends into the left upper abdomen, uncurled from the previous appearance with the tip o verlying the mid stomach. Heart is again mildly enlarged. Bilateral mid and lower lung opacities hav e slightly improved. Osseous structures appear stable. IMPRESSION: 1. Interval exchange of ET tube for a tracheostomy cannula. 2. NG tube tip over the stomach. 3. Improving mid and lower lung opacities, probably [id number] effusions with adjacent atelec tasis and/or consolidation.
[2023-11-03] MEDS ORDERED: IBUPROFEN 200 MG TAB PO PRN (04:23)
[2023-11-03 05:17] LABS: Basophils # (A) 0.1 k/uL (0-0.2); Basophils % (A) 1 %; Eosinophils # (A) 0.2 k/uL (0-0.7); Eosinophils % (A) 2 %; HGB 10.6 gm/dL (13.0-17.5); Lymphocytes % (A) 9 %; MCHC 32.1 g/dL (31.0-37.0); MCV 99.9 fL (80.0-100.0); Macrocytosis Slight; Mean Platelet Volume 8.5; Monocytes # (A) 0.7 k/uL (0-1.0); Monocytes % (A) 6 %; Neutrophils # (A) 8.8 k/uL (1.3-7.7); Neutrophils % (A) 81 %; Platelet Count 419 k/uL (150-450); RDW 14.7 % (11.5-15.5); WBC 10.8 k/uL (3.8-10.6)
[2023-11-03 05:21] LABS: ABG Base Excess 5.5 mmol/L; ABG HCO3 30 mmol/L (21-25); ABG Oxygen Saturation 96.9 % (94-97); ABG PCO2 48 mmHg (35-45); ABG PH 7.41 (7.35-7.45); ABG PO2 83 mmHg (83-108); ABG TCO2 32 mmol/L (19-24)
[2023-11-03 05:24] LABS: ALT 13 U/L (4-49); AST 27 U/L (17-59); African American GFR (CKD) >90 (>60 ml/min/1.73 sqM); Albumin 2.8 g/dL (3.5-5.0); Alkaline Phosphatase 101 U/L (38-126); Anion Gap 3 mmol/L; Blood Urea Nitrogen 14 mg/dL (9-20); Calcium 9.4 mg/dL (8.4-10.2); Carbon Dioxide 30 mmol/L (22-30); Chloride 104 mmol/L (98-107); Glucose 80 mg/dL (74-99); Non-African American GFR(CKD) >90 (>60 ml/min/1.73 sqM); Potassium 4.2 mmol/L (3.5-5.1); Sodium 137 mmol/L (137-145); Total Bilirubin 0.5 mg/dL (0.2-1.3); Total Protein 5.7 g/dL (6.3-8.2)
[2023-11-03 06:16] LABS: Allen Test Performed? no
[2023-11-03 06:38] LABS: Glucose,Whole Blood 76 mg/dL (70-110)
[2023-11-03] MEDS: IBUPROFEN 600 MG TAB PO PRN (07:01)
[2023-11-03] MEDS ORDERED: HYDROmorphone 0.5 MG/0.5 ML SYRINGE IVP PRN (08:32)
[2023-11-03] MEDS ORDERED: LIDOCAINE 1% (10MG/ML) FOR IV START INTRADERMA PRN (08:32)
[2023-11-03] MEDS: SCOPOLAMINE 1 MG/72 HR PATCH TRANSDERM ONE (09:31)
[2023-11-03] MEDS: DEXAMETHASONE SOD PHOSPHATE 4 MG/ML 1 ML VIAL IV ONE (09:39)
--- NOTE | 2023-11-03 11:43 | P.PN ---
Subjective Progress Note Date: 11/03/23 Principal diagnosis: Respiratory failure. Patient is a 48-year-old white male with past medical history significant for hypertension, coronary artery disease, current everyday smoker, and alcohol abuse. He was transferred from [facility] 10/22/2023 for acute pancreatitis. He was noted to be intoxicated on arrival to outside facility, with an alcohol level of 34 mg/dL, while at our facility developed impending acute alcohol withdrawal delirium tremens. He required ICU admission for Precedex infusion. Patient is currently lethargic and not a very good historian . After reviewing the medical records from the outside facility, it appears he presented with abdominal pain. He was also noted to have severely elevated lipase and amylase levels. An abdominal and pelvis CT was performed, which identified peripancreatic inflammatory stranding and fluid consistent with acute pancreatitis. No pseudocyst, abscess, or pancreatic necrosis. No gallstones or ductal dilation. There was decreased attenuation of the hepatic parenchyma, suggestive of fatty infiltration. Patient was dehdydrated and noted to have sustained an WILFRIDO. It appears he was fluid resuscitated with 2 L of crystalloid fluid. He was then transferred to [facility]. He was noted to be steffany tated and combative. He had received multiple doses of Ativan, I am told a total of 16 mg. He was also receiving Haldol. Despite this, he had sustained recorded CIWA scores greater than 28, and for this reason he was placed on a Precedex infusion and admitted to the intensive care unit. Most recent CBC from yesterday: WBC count 7.6, hemoglobin 13.9, hematocrit 42, platelets 110. Most recent CMP from yesterday: Sodium 138, potassium 4.4, chloride 108, serum bicarb 19, BUN 18, creatinine 1.13, glucose 94. AST 97, ALT 74, ALP 156, total bilirubin 1. Lipase 11,329 and amylase 1468. Patient is currently lethargic and not making much sense when talking. Unsure of when last drink was. Precedex is infusing at 0.4 mcg/kg/h. He does have bilateral upper extremity soft restraints on, which likely can be discontinued. Blood pressure is noted to be hypertensive, has received a clonidine 0.2 mg patch, which is fallen off and will be replaced. EKG shows normal sinus rhythm without any obvious acute ischemic changes. Patient's pain appears well-managed with current regimen of as needed Dilaudid. He does have some facial grimacing with palpation of the bilateral upper abdomen. Normal saline is infusing at 150 MLS per hour. Currently on room air, in no acute respiratory distress. Afebrile. He has been moved to room 262 in the intensive care unit. Patient was evaluated today on 10/25/2023, remains in the ICU, remains on Precedex at 1 mcg/kg/h. Remains on Cleviprex. Remains on Ativan intermittently and on Haldol. In spite of all of this the patient continues to have episodes of extreme agitation and restlessness. And seems to be delirious. Continues to have a sitter at bedside. His WBC is 7.8 hemoglobin 11.3 basic metabolic profile is normal renal profile is normal however his bicarb is 15, lipase is down to 164 today, it was 1668 yesterday, amylase is down to 112 from 598 yesterday obviously his acute pancreatitis is improving chest x-ray showed no evidence of active disease, minimal pulmonary vascular prominence Reevaluate today on 10/26/2023, patient remains in the ICU, he is on room air, continues to have intermittent episodes of extreme agitation, remains on Precedex at 1.4 mcg/kg/h, remains on Ativan intermittently and Haldol intermittently, nonetheless continues to have episodes of significant agitations. Patient is on the CIWA protocol, he seems to require suctioning of his oropharynx, purulent material is noted, patient does have gag with sucti oning and able to protect his airways. But he has a very poor cough reflex. At any rate patient will need to be on oral medications, and I am recommending a nasogastric tube to be placed today, if the patient continues to do poorly may have to consider intubation and mechanical ventilation, however this will be the last resort. In the meantime I believe the patient will remain on the same medications he is presently on and will remain on the CIWA protocol. Needs definitely close monitoring in the ICU. Patient is purulent secretions I recommended empirically starting the patient on Zosyn. WBC count is 7.4 hemoglobin 11.3 basic metabolic profile is normal except for low potassium of 3.2 renal profile is normal lipase is down to 72 amylase is normal Patient was reevaluated today on 10/27/2023, patient received significant amount of sedation yesterday, and continued to be restless and agitated, at 1 point he desaturated, and he was gurgling with secretions, I was made aware of the clarisa trevino and recommended intubation. Patient was intubated and placed on mechanical ventilation overnight, he is on assist-control rate of 20 tidal volume 400 FiO2 40% and PEEP of 5 ABG showed a pO2 of 131 pCO2 34 pH of 7.30 hence kept on the same ventilator settings. He is on propofol at 65 mcg/kg/min is also 1.9 normal saline at 125 cc/h. Patient is receiving bicarb orally for low bicarb. He is also on Zosyn empirically. Patient is also on enteral feeding. Today I went ahead and placed a right radial arterial line for hemodynamic monitoring and for frequent blood draws. WBC count is 5.9 hemoglobin is 9.4. Basic metabolic profile is normal except for bicarb of 14 patient has a hyperchloremic metabolic none anion gap metabolic acidosis. Chest x-ray showed pulmonary vascular congestion, patient received a dose of Lasix earlier this morning Patient was reevaluated today on 10/28/2023, remains in the ICU, intubated and mechanically ventilated. Patient is on assist-control rate of 20 tidal volume 400 FiO2 40% PEEP of 5 ABG showed a pO2 of 160 pCO2 37 pH of 7.34, I cut down his FiO2 down to 35%. Patient is receiving propofol at 55 mcg/kg/min, he is off norepinephrine, receiving 0.9 normal saline at 125 cc/h. Continues to have intermittent episodes of coffee-ground material in the nasogastric tube, hence nutrition/enteral feeding is presently on hold. Chest x-ray is showing some minimal vascular congestion along with small effusions and atelectasis patient remains on Zosyn empirically, he will receive Lasix 1 dose today 20 mg IV push. Patient continues to have significant amount of secretions he was given a trial off sedation patient was agitated, restless, and again significant amount of secretions were noted in the endotracheal tube, hence will hold on weaning today and extubation. WBC count is 3.8 hemoglobin 8.9. Basic metabolic profile is normal, renal profile is normal Patient was reevaluated today on 10/29/2019, remains in the ICU, intubated and mechanically ventilated. Patient was extremely restless and agitated last night on lower dose of sedation, hence his propofol was increased to as high as 70 mcg/kg/min at present. He is requiring Cleviprex at 10 mg/h for tachycardia. He is on IV fluid 0.9 normal saline at 125 cc/h. Continues to have lots of secretions via the endotracheal tube. Patient is to be restarted back on tube feeding, his positioning of the endotracheal tube and nasogastric tube will be adjusted today. Remains on Zosyn his vent settings are 20/400/35%/5 ABG showed a pO2 of 78 pCO2 34 pH of 7.37 chest x-ray today is noted to show mid and lower lung opacities, slightly increased and small pleural effusions. Patient has atelectasis, and may have a component of fluid overload, will continue intermittent diuresis on this patient, patient did receive 40 mg of Lasix IV push today. Cardiogram on this admission showed good LV function ejection fraction of 55 to 60%, and no evidence of valvular heart disease Progress note dated October 30, 2023. This is a 48-year-old male who was admitted on October 21. He came into the hospital, with alcohol withdrawal syndrome. The patient was intubated on October 25 for respiratory failure. He remains on the ventilator. Settings include volume assist-control, rate 20, tidal volume 400, FiO2 35%, with a PEEP of 5. Blood gases show pO2 of 87, pCO2 of 39, pH is 7.43. The patient is on Cleviprex at 1 mg an hour, propofol at 60 mcg/kg/min, saline at KVO, and saline at 30 cc an hour. The patient continues on Zosyn. The patient's sputum revealed evidence of methicillin sensitive Staph aureus. White count is 5.7, hemoglobin 10.1, hematocrit 31.4, and platelet count was 231,000. Sodium 140, potassium 3.4, chlorides 111, CO2 25, BUN 6, creatinine 0.55. Glucose 103. AST 14. Ammonia level was normal. Chest x-ray shows bilateral interstitial and patchy opacities. Progress note dated October 31, 2023. This is a 48-year-old male who was admitted on October 21. He came into the hospital, with alcohol withdrawal syndrome. The patient was intubated on October 25 for respiratory failure. He remains on the ventilator. Current ventilator settings include volume assist-control, rate 20, tidal volume 400, FiO2 35%, PEEP of 5. Blood gases show pO2 of 88, pCO2 46, pH is 7.46. The patient is getting propofol at 70 mcg/kg/min, Cleviprex at 2 mg an hour, and Nepro tube fe edings at 19 cc an hour, which is goal. Today, we will add amlodipine at 5 mg an hour for better blood pressure control, and the patient continues on Zosyn, for staphylococci in the sputum. White count 7.2, hemoglobin 10.2, hematocrit 31, and platelet count was normal. Sodium 140, potassium 3.9, chlorides 106, CO2 31, BUN 8, creatinine 0.52. Glucose is 120. Calcium 8.8. Patient's chest x-ray shows a stable exam with small bilateral pleural effusions, and adjacent atelectasis. Progress note dated November 01, 2023. 48-year-old male who was admitted on October 21. He came to the hospital with alcohol withdrawal syndrome. The patient was intubated on October 25, for respiratory failure. He remains on the ventilator. Settings include volume assist-control, rate 20, tidal volume 400, FiO2 35%, and PEEP of 5. Blood gases show pO2 74, pCO2 45, pH is 7.47. He is on propofol at 70 mcg/kg/min, and Cleviprex at 4 mg an hour. The patient is getting saline at 50 cc an hour. He is also getting tube feedings with Nepro at 27 cc an hour, which is goal. Residuals were high. We added Reglan 10 mg every 6. In addition, because of failure to wean from mechanical ventilation, the patient will have a surgical consultation for possible tracheostomy and PEG tube placement. Current labs include a white count 6.7, hemoglobin 10, hematocrit 30.9, and a platelet count of 305,000. Sodium 139, potassium 3.9, chlorides 106, CO2 31, BUN 11, creatinine 0.62. Glucose is 109. Calcium is 9.1. Sputum from October 25 was positive for Staphylococcus aureus. Chest x-ray is largely unchanged. Progress note dated November 02, 2023. The patient is seen today in room 262. 48-year-old male admitted on October 21. He came into the hospital with alcohol withdrawal syndrome. He was intubated for respiratory failure on October 26, 2023. He remains on the ventilator. Ventilator settings include volume assist-control, rate 20, tidal volume 400, FiO2 35%, and PEEP of 5. Blood gases show pO2 106, pCO2 49, pH is 7.43. The patient is on saline at 20 cc an hour, propofol at 60 mcg/kg/min, and fentanyl 1 mcg/kg/h. He is getting Zosyn IV. The patient is scheduled to have a possible tracheostomy and PEG tube placement today. White count is 8.1, hemoglobin 9.8, hematocrit 29.3, platelet count normal. Sodium 140, potassium 3.9, chlorides 109, CO2 31, BUN 13, creatinine 0.73. Glucose is 96. Calcium 9.1. Sputum Gram stain from 418, showed evidence of Staphylococcus aureus. Chest x-ray shows b ilateral lung opacities. Chest x-ray is essentially unchanged. Progress note dated November 03, 2023. The patient is seen today again in room 262. The patient remains on mechanical ventilator. Ventilator settings include volume assist-control, rate 20, tidal volume 400, FiO2 35%, PEEP of 5. Blood gases show pO2 of 83, pCO2 48, pH of 7.41. The patient continues on propofol at 60 mcg/kg/min, fentanyl at 1 mcg/kg/h, and saline at 10 cc an hour. Tube feedings are on hold, for possible PEG tube placement today, November 02. The patient did have a tracheostomy performed on November 01. I am going to add Dilaudid 1 mg every 6 hours, to his regimen, to see if we can get him off the fentanyl drip. White count 10.8, hemoglobin 10.6, macro 33, with a normal platelet count. Sodium 137, potassium 4.2, chlorides 104, CO2 30, BUN 14, creatinine 0.74. Albumin is 2.8. Glucose is 76. Sputum on October 25 was positive for Staphylococcus aureus. Chest x-ray shows the presence of a tracheostomy tube. Bilateral infiltrates, appear improved. Objective - Vital Signs Vital signs: Vital Signs Temp 99.4 F 11/03/23 08:00 Pulse 98 11/03/23 11:00 Resp 15 11/03/23 11:00 BP 128/88 11/03/23 10:00 Pulse Ox 99 11/03/23 11:00 FiO2 35 11/03/23 11:00 Intake & Output 11/02/23 11/03/23 11/03/23 18:59 06:59 18:59 Intake Total 1047.601 714.157 113.711 Output Total 750 1405 250 Balance 297.601 -690.843 -136.289 Weight 73.1 kg Intake: IV 740 190 50 Piperacillin-Tazobactam 3 100 100 .375 gm In Sodium Chloride 0.9% 100 ml @ 25 mls/hr IVPB Q8HR [facility] Rx# :[id number] Sodium Chloride 0.9% 1, 140 90 50 000 ml @ 10 mls/hr IV . Q24H [facility] Rx#:[id number] Intake, IV Titration 307.601 524.157 63.711 Amount Clevidipine Butyrate 25 0 36.233 mg In Empty Bag 1 bag @ 1 MG/HR 2 mls/hr IV .Q24H [facility] Rx#:[id number] fentaNYL (PF). 1,000 mcg 100 127.405 63.711 In Sodium Chloride 0.9% 80 ml @ 1 MCG/KG/HR 7.63 mls/hr IV .Q13H7M [facility] Rx# :[id number] propofoL 1,000 mg In 207.601 360.519 Empty Bag 1 bag @ 15 MCG/ KG/MIN 6.219 mls/hr IV . Q16H5M [facility] Rx#:[id number] Tube Feeding 0 Other 0 Output: Urine 750 1400 250 Estimated Blood Loss 5 Other: Voiding Method Indwelling Catheter Indwelling Catheter ABP, PAP, CO, CI - Last Documented Arterial Blood Pressure 125/67 - Exam No acute distress, currently sedated, with a midline tracheostomy tube. HEENT examination is grossly unremarkable. Neck supple. Full range of motion. No adenopathy thyromegaly or neck vein distention. Cardiovascular examination reveals regular rhythm rate. S1-S2 normal. No S3 or S4. No discernible murmur noted. Heart sounds are distant. Heart rate 101 bpm. Lungs reveal scattered bilateral rhonchi. No wheezes or crackles. Breath sounds equal. Saturations are 99 %. Abdomen soft, with bowel sounds. Extremities are intact. No cyanosis clubbing or edema. Skin is without rash or lesion. Neurologic examination cannot be adequately assessed at this time. - Labs CBC & Chem 7: 11/03/23 04:44 11/03/23 04:44 Labs: Abnormal Lab Results - Last 24 Hours (Table) 11/03/23 11/03/23 11/03/23 Range/Units 04:44 04:44 05:20 WBC 10.8 H (3.8-10.6) k/uL RBC 3.30 L (4.30-5.90) m/uL Hgb 10.6 L (13.0-17.5) gm/dL Hct 33.0 L (39.0-53.0) % Neutrophils # 8.8 H (1.3-7.7) k/uL ABG pCO2 48 H (35-45) mmHg ABG HCO3 30 H (21-25) mmol/L ABG Total CO2 32 H (19-24) mmol/L Total Protein 5.7 L (6.3-8.2) g/dL Albumin 2.8 L (3.5-5.0) g/dL Assessment and Plan Assessment: Acute hypoxemic respiratory failure, secondary to acute alcohol withdrawal syndrome, status post intubation and mechanical ventilation, on October 26, 2023. S/P tracheostomy November 02, 2023. Anticipated PEG tube placement, November 03, 2023. Acute alcohol withdrawal with acute alcohol intoxication. Acute alcoholic pancreatitis. Hypertensive urgency. Abdominal pain, secondary to pancreatitis. Acute kidney injury. History of alcoholism. Mild transaminitis. History of coronary artery disease. Current everyday smoker. Plan: Plan dated October 30, 2023. The patient continues on Zosyn for his methicillin sensitive Staph aureus in the sputum. Labs, x-rays, medications are reviewed. The patient's overall prognosis remains guarded. The patient has had a daily interruption of sedation, becomes very agitated. We will continue to follow make recommendations along the way. Prognosis is certainly guarded. No additional recommendations at this time. Plan dated October 31, 2023. The patient remains on Zosyn, for his methicillin sensitive Staph aureus infection in the sputum/lung. Labs, x-rays, and medications are all reviewed. The patient's overall condition remains very guarded. If he does not show any progress towards weaning and extubation, by the end of the week, the patient may end up with a tracheostomy tube, and a PEG tube. We will continue to follow make recommendations along the way. Today we added amlodipine at 5 mg/day, to see if we can wean the patient off the Cleviprex. Patient continues on propofol. The patient also continues on Zosyn. Additional recommendations and suggestions are forthcoming. Plan dated November 01, 2023. The patient is seen today in room 262. The patient is on propofol, Cleviprex, and saline. In addition, tube feedings are currently on hold because of high residuals. Reglan will be added to the regimen. In addition, for some additional comfort for the patient, we will add fentanyl drip, at 1 mcg/kg/h, to start. In addition, we asked surgery to see the patient for possible tracheostomy and PEG tube placement. Labs, x-rays, medications are reviewed. The patient's overall prognosis remains extremely guarded. We will continue to follow, make recommendations along the way. The patient continues on Zosyn. Plan dated November 02, 2023. The patient remains on propofol at 60 mcg/kg/min, and fentanyl at 1 mcg/kg/h. The patient also continues on Zosyn. The patient is scheduled for tracheostomy and PEG tube placement today. Blood gases show pO2 of 106, pCO2 of 49, pH is 7.43. Labs, x-rays, and medications are reviewed. We will continue to follow the patient, make recommendations along the way. The patient's overall prognosi s remains very guarded. Plan dated November 03, 2023. The patient is seen today in room 262. The patient had a tracheostomy tube placed yesterday, November 01. The patient is n.p.o., for possible PEG tube placement, today. The patient continues on propofol and fentanyl. We will add some Dilaudid to the regimen, to see if we can wean the fentanyl off completely. Labs, x-rays, and medications are reviewed. Blood gases are reasonable with a pO2 of 83, pCO2 of 48, pH is 7.41. We will continue to follow the patient, and make recommendations along the way. Prognosis is certainly guarded.
[2023-11-03 11:45] LABS: Glucose,Whole Blood 85 mg/dL (70-110)
--- NOTE | 2023-11-03 12:14 | XR ---
EXAMINATION TYPE: XR chest 1V portable DATE OF EXAM: 11/03/2023 Comparison: 11/02/2023 Clinical History: 48-year-old male Disease progression Findings: Tracheostomy cannula in place. NG tube courses below the diaphragm. Heart remains borderline in size. Diffuse interstitial density as well as patchy mid and lower lung opacities persist. Impression: Similar mid and lower lung densities, probably [id number] effusions with adjacent atelectasis and/or consolidation.
[2023-11-03] MEDS: LACTATED RINGERS 1,000 ML IV SCH ×2 (13:26→17:53)
[2023-11-03] MEDS: HYDROmorphone 1 MG/ML 1 ML SYRINGE IVP SCH (13:28)
--- NOTE | 2023-11-03 16:09 | P.PN ---
Subjective Progress Note Date: 11/03/23 48-year-old white male with past medical history significant for hypertension, coronary artery disease, current everyday smoker, and alcohol abuse. He was transferred from [facility] 10/22/2023 for acute pancreatitis. He was noted to be intoxicated on arrival to outside facility, with an alcohol level of 34 mg/dL. He required ICU admission for Precedex infusion. He was also noted to have severely elevated lipase and amylase levels. An abdominal and pelvis CT was performed, which identified peripancreatic inflammatory stranding and fluid consistent with acute pancreatitis. No pseudoc yst, abscess, or pancreatic necrosis. No gallstones or ductal dilation. There was decreased attenuation of the hepatic parenchyma, suggestive of fatty infiltration. Patient was dehdydrated and noted to have sustained an WILFRIDO. It appears he was fluid resuscitated with 2 L of crystalloid fluid. He was then transferred to [facility]. CBC from yesterday: WBC count 7.6, hemoglobin 13.9, hematocrit 42, platelets 110. Most recent CMP from yesterday: Sodium 138, potassium 4.4, chloride 108, serum bicarb 19, BUN 18, creatinine 1.13, glucose 94. AST 97, ALT 74, ALP 156, total bilirubin 1. Lipase 11,329 and amylase 1468. Patient is currently lethargic and not making much sense when talking. Unsure of when last drink was. Precedex is infusing at 0.4 mcg/kg/h. He does have bilateral upper extremity soft restraints on, which likely can be discontinued. Blood pressure is noted to be hypertensive, has received a clonidine 0.2 mg patch, which is fallen off and will be replaced. EKG shows normal sinus rhythm without any obvious acute ischemic changes. Patient's pain appears well-managed with current regimen of as needed Dilaudid. He does have some facial grimacing with palpation of the bilateral upper abdomen. Normal saline is infusing at 150 MLS per hour. Currently on room air, in no acute respiratory distress. Afebrile. He has been moved to room 262 in the intensive care unit. -- Plan of care was discussed with patient's mother; reports she was told by family noticed that patient is now qualifying for hospice/palliative care -- Patient condition discussed in great detail; mill set up recommendations discussed with patient also; no plan to consult hospice or palliative care at this time Objective - Vital Signs Vital signs: Vital Signs Temp 102.5 F H 11/03/23 04:00 Pulse 103 H 11/03/23 09:38 Resp 21 11/03/23 09:38 BP 128/91 11/02/23 19:00 Pulse Ox 95 11/03/23 07:00 FiO2 35 11/03/23 09:40 Intake & Output 11/02/23 11/03/23 11/03/23 18:59 06:59 18:59 Intake Total 1047.601 714.157 73.711 Output Total 750 1405 105 Balance 297.601 -690.843 -31.289 Weight 73.1 kg Intake: IV 740 190 10 Piperacillin-Tazobactam 3 100 100 .375 gm In Sodium Chloride 0.9% 100 ml @ 25 mls/hr IVPB Q8HR [facility] Rx# :[id number] Sodium Chloride 0.9% 1, 140 90 10 000 ml @ 10 mls/hr IV . Q24H [facility] Rx#:[id number] Intake, IV Titration 307.601 524.157 63.711 Amount Clevidipine Butyrate 25 0 36.233 mg In Empty Bag 1 bag @ 1 MG/HR 2 mls/hr IV .Q24H [facility] Rx#:[id number] fentaNYL (PF). 1,000 mcg 100 127.405 63.711 In Sodium Chloride 0.9% 80 ml @ 1 MCG/KG/HR 7.63 mls/hr IV .Q13H7M [facility] Rx# :[id number] propofoL 1,000 mg In 207.601 360.519 Empty Bag 1 bag @ 15 MCG/ KG/MIN 6.219 mls/hr IV . Q16H5M [facility] Rx#:[id number] Tube Feeding 0 Other 0 Output: Urine 750 1400 105 Estimated Blood Loss 5 Other: Voiding Method Indwelling Catheter Indwelling Catheter ABP, PAP, CO, CI - Last Documented Arterial Blood Pressure 82/43 - Exam Patient is sedated, intubated and on mechanical ventilator.. HEENT: Normocephalic. Neck is supple. Pupils reactive. Nostrils clear. Oral cavity is moist. Neck reveals no JVD, carotid bruits, or thyromegaly. CHEST EXAMINATION: Trachea is central. Symmetrical expansion. Lung ghotra clear to auscultation and percussion. CARDIAC: Normal S1, S2 with no gallops. No murmurs ABDOMEN: Soft. Bowel sounds normal. No organomegaly. No abdominal bruits. Extremities: reveal no edema. No clubbing or cyanosis Neurologically sedated and intubated. No gross focal deficits noted Skin: No rash or skin lesions. Psychiatric: Could not be assessed at this time Musculoskeletal: No joint swelling or deformity. - Labs CBC & Chem 7: 11/03/23 04:44 11/03/23 04:44 Labs: Abnormal Lab Results - Last 24 Hours (Table) 11/03/23 11/03/23 11/03/23 Range/Units 04:44 04:44 05:20 WBC 10.8 H (3.8-10.6) k/uL RBC 3.30 L (4.30-5.90) m/uL Hgb 10.6 L (13.0-17.5) gm/dL Hct 33.0 L (39.0-53.0) % Neutrophils # 8.8 H (1.3-7.7) k/uL ABG pCO2 48 H (35-45) mmHg ABG HCO3 30 H (21-25) mmol/L ABG Total CO2 32 H (19-24) mmol/L Total Protein 5.7 L (6.3-8.2) g/dL Albumin 2.8 L (3.5-5.0) g/dL Assessment and Plan Assessment: Acute hypoxemic respiratory failure second alcohol withdrawal symptoms and DTs currently intubated and on mechanical ventilator since October 26, 2023 Acute alcohol withdrawal symptoms and DTs Uncontrolled hypertension. Improved now. Acute pancreatitis likely alcohol-related Acute kidney injury likely prerenal improved now. Severe alcohol abuse Mild transaminitis improved History of coronary disease Currently everyday smoker GI and DVT prophylaxis Plan: Patient is on mechanical ventilator. Continued on propofol and fentanyl drip was added. Cleviprex is off. Continue to titrate blood pressure medications. Continue with tube feedings. IV fluids to KVO.. Monitor urine output. Antibiotics have been discontinued. Daily weaning trials as per critical care team. General surgery was consulted for possible trach and PEG tube placement Continue to follow closely
--- NOTE | 2023-11-03 16:28 | P.PN ---
Subjective Progress Note Date: 11/03/23 CHIEF COMPLAINT: Abdominal pain HISTORY OF PRESENT ILLNESS: Patient mid to the hospital was hypoxic respiratory failure due to alcohol withdrawal and acute pancreatitis. Patient in the ICU intubated and on mechanical ventilation. Difficulty to wean from vent. Patient is status post tracheostomy placement yesterday. Patient had fevers during the night. WBC 10.8 PHYSICAL EXAM: VITAL SIGNS: Reviewed. GENERAL: no acute distress. Neck: trach site clean, dry and intact ABDOMEN: Soft. Nondistended. Nontender. ASSESSMENT: 1. Acute hypoxic respiratory failure due to alcohol withdraw syndrome 2. Severe protein calorie malnutrition 3. Acute pancreatitis PLAN: -Patient scheduled for PEG tube placement on Monday with Dr. Colin. Due to Endo scheduling issues PEG tube cannot be placed until 11/06/2023 [employer] note has been reviewed by physician. Signing provider agrees with the documented findings, assessment, and plan of care. Objective - Vital Signs Vital signs: Vital Signs Temp 99.4 F 11/03/23 08:00 Pulse 98 11/03/23 11:00 Resp 15 11/03/23 11:00 BP 128/88 11/03/23 10:00 Pulse Ox 99 11/03/23 11:00 FiO2 35 11/03/23 11:00 Intake & Output 11/02/23 11/03/23 11/03/23 18:59 06:59 18:59 Intake Total 1047.601 714.157 113.711 Output Total 750 1405 250 Balance 297.601 -690.843 -136.289 Weight 73.1 kg Intake: IV 740 190 50 Piperacillin-Tazobactam 3 100 100 .375 gm In Sodium Chloride 0.9% 100 ml @ 25 mls/hr IVPB Q8HR [facility] Rx# :[id number] Sodium Chloride 0.9% 1, 140 90 50 000 ml @ 10 mls/hr IV . Q24H [facility] Rx#:[id number] Intake, IV Titration 307.601 524.157 63.711 Amount Clevidipine Butyrate 25 0 36.233 mg In Empty Bag 1 bag @ 1 MG/HR 2 mls/hr IV .Q24H [facility] Rx#:[id number] fentaNYL (PF). 1,000 mcg 100 127.405 63.711 In Sodium Chloride 0.9% 80 ml @ 1 MCG/KG/HR 7.63 mls/hr IV .Q13H7M [facility] Rx# :[id number] propofoL 1,000 mg In 207.601 360.519 Empty Bag 1 bag @ 15 MCG/ KG/MIN 6.219 mls/hr IV . Q16H5M [facility] Rx#:[id number] Tube Feeding 0 Other 0 Output: Urine 750 1400 250 Estimated Blood Loss 5 Other: Voiding Method Indwelling Catheter Indwelling Catheter ABP, PAP, CO, CI - Last Documented Arterial Blood Pressure 125/67 - Labs CBC & Chem 7: 11/03/23 04:44 11/03/23 04:44 Labs: Abnormal Lab Results - Last 24 Hours (Table) 11/03/23 11/03/23 11/03/23 Range/Units 04:44 04:44 05:20 WBC 10.8 H (3.8-10.6) k/uL RBC 3.30 L (4.30-5.90) m/uL Hgb 10.6 L (13.0-17.5) gm/dL Hct 33.0 L (39.0-53.0) % Neutrophils # 8.8 H (1.3-7.7) k/uL ABG pCO2 48 H (35-45) mmHg ABG HCO3 30 H (21-25) mmol/L ABG Total CO2 32 H (19-24) mmol/L Total Protein 5.7 L (6.3-8.2) g/dL Albumin 2.8 L (3.5-5.0) g/dL
[2023-11-03 17:41] LABS: Glucose,Whole Blood 90 mg/dL (70-110)
[2023-11-04 00:42] LABS: Glucose,Whole Blood 85 mg/dL (70-110)
[2023-11-04 05:03] LABS: HCT 30.3 % (39.0-53.0); HGB 9.9 gm/dL (13.0-17.5); MCH 32.3 pg (25.0-35.0); MCHC 32.7 g/dL (31.0-37.0); MCV 98.8 fL (80.0-100.0); Mean Platelet Volume 9.2; Platelet Count 357 k/uL (150-450); RBC 3.07 m/uL (4.30-5.90); RDW 14.6 % (11.5-15.5); WBC 12.5 k/uL (3.8-10.6)
[2023-11-04 05:33] LABS: African American GFR (CKD) >90 (>60 ml/min/1.73 sqM); Anion Gap 5 mmol/L; Blood Urea Nitrogen 19 mg/dL (9-20); Carbon Dioxide 28 mmol/L (22-30); Chloride 102 mmol/L (98-107); Glucose 78 mg/dL (74-99); Non-African American GFR(CKD) >90 (>60 ml/min/1.73 sqM); Sodium 135 mmol/L (137-145)
[2023-11-04 05:35] LABS: Magnesium 1.9 mg/dL (1.6-2.3); Phosphorus 4.7 mg/dL (2.5-4.5); Potassium 4.3 mmol/L (3.5-5.1)
[2023-11-04 05:44] LABS: Glucose,Whole Blood 96 mg/dL (70-110)
[2023-11-04 06:41] LABS: ABG Base Excess 4.7 mmol/L; ABG HCO3 29 mmol/L (21-25); ABG Oxygen Saturation 95.2 % (94-97); ABG PCO2 47 mmHg (35-45); ABG PH 7.41 (7.35-7.45); ABG PO2 72 mmHg (83-108); ABG TCO2 31 mmol/L (19-24); Allen Test Performed? Yes
--- NOTE | 2023-11-04 07:10 | XR ---
EXAM: XR chest 1V portable CLINICAL INDICATION:Male, 48 years old with history of NGT; [facility] COMPARISON: 11/03/2023 5:04 AM and before TECHNIQUE: Chest single view. FINDINGS: Lines/tubes/devices: Tracheostomy tube device in unchanged position. NG tube again extends into the l eft upper abdomen, the tip is slightly changed in position now directed laterally towards the left ov erlying the gastric body. Cardiomediastinum: Cardiac silhouette appears unchanged, borderline enlarged. Stable mediastinal silhouette. Vasculature: No increased pulmonary vasculature. Lungs/pleura: Diffusely increased interstitial markings with patchy mid to lower lung opacities persist unchanged. Probably at least small effusions. No visualized pneumothorax. Bones/soft tissues: Bony thorax appears grossly stable and intact as seen. Regional soft tissues appear unremarkable. IMPRESSION: 1. Lines and tubes in place as above. 2. Stable cardiopulmonary status.
--- NOTE | 2023-11-04 09:30 | XR ---
EXAMINATION TYPE: XR chest 1V portable DATE OF EXAM: 11/04/2023 Comparison: 11/03/2023 Clinical History: 48-year-old male ventilated, ICU follow-up Findings: Tracheostomy cannula. NG tube courses below the diaphragm. Heart upper limits of normal in size. Smal l bilateral pleural effusions and mild interstitial density persists. Impression: Similar small bilateral pleural effusions with adjacent atelectasis and/or consolidation. Possible mi ld pulmonary vascular congestion. Overall similar appearance.
[2023-11-04 11:49] LABS: Glucose,Whole Blood 86 mg/dL (70-110)
[2023-11-04] MEDS: HYDROmorphone 1 MG/ML 1 ML SYRINGE IVP SCH (12:30)
--- NOTE | 2023-11-04 13:44 | P.PN ---
Subjective Progress Note Date: 11/04/23 Principal diagnosis: Respiratory failure. Patient is a 48-year-old white male with past medical history significant for hypertension, coronary artery disease, current everyday smoker, and alcohol abuse. He was transferred from [facility] 10/22/2023 for acute pancreatitis. He was noted to be intoxicated on arrival to outside facility, with an alcohol level of 34 mg/dL, while at our facility developed impending acute alcohol withdrawal delirium tremens. He required ICU admission for Precedex infusion. Patient is currently lethargic and not a very good historian . After reviewing the medical records from the outside facility, it appears he presented with abdominal pain. He was also noted to have severely elevated lipase and amylase levels. An abdominal and pelvis CT was performed, which identified peripancreatic inflammatory stranding and fluid consistent with acute pancreatitis. No pseudocyst, abscess, or pancreatic necrosis. No gallstones or ductal dilation. There was decreased attenuation of the hepatic parenchyma, suggestive of fatty infiltration. Patient was dehdydrated and noted to have sustained an WILFRIDO. It appears he was fluid resuscitated with 2 L of crystalloid fluid. He was then transferred to [facility]. He was noted to be steffany tated and combative. He had received multiple doses of Ativan, I am told a total of 16 mg. He was also receiving Haldol. Despite this, he had sustained recorded CIWA scores greater than 28, and for this reason he was placed on a Precedex infusion and admitted to the intensive care unit. Most recent CBC from yesterday: WBC count 7.6, hemoglobin 13.9, hematocrit 42, platelets 110. Most recent CMP from yesterday: Sodium 138, potassium 4.4, chloride 108, serum bicarb 19, BUN 18, creatinine 1.13, glucose 94. AST 97, ALT 74, ALP 156, total bilirubin 1. Lipase 11,329 and amylase 1468. Patient is currently lethargic and not making much sense when talking. Unsure of when last drink was. Precedex is infusing at 0.4 mcg/kg/h. He does have bilateral upper extremity soft restraints on, which likely can be discontinued. Blood pressure is noted to be hypertensive, has received a clonidine 0.2 mg patch, which is fallen off and will be replaced. EKG shows normal sinus rhythm without any obvious acute ischemic changes. Patient's pain appears well-managed with current regimen of as needed Dilaudid. He does have some facial grimacing with palpation of the bilateral upper abdomen. Normal saline is infusing at 150 MLS per hour. Currently on room air, in no acute respiratory distress. Afebrile. He has been moved to room 262 in the intensive care unit. Patient was evaluated today on 10/25/2023, remains in the ICU, remains on Precedex at 1 mcg/kg/h. Remains on Cleviprex. Remains on Ativan intermittently and on Haldol. In spite of all of this the patient continues to have episodes of extreme agitation and restlessness. And seems to be delirious. Continues to have a sitter at bedside. His WBC is 7.8 hemoglobin 11.3 basic metabolic profile is normal renal profile is normal however his bicarb is 15, lipase is down to 164 today, it was 1668 yesterday, amylase is down to 112 from 598 yesterday obviously his acute pancreatitis is improving chest x-ray showed no evidence of active disease, minimal pulmonary vascular prominence Reevaluate today on 10/26/2023, patient remains in the ICU, he is on room air, continues to have intermittent episodes of extreme agitation, remains on Precedex at 1.4 mcg/kg/h, remains on Ativan intermittently and Haldol intermittently, nonetheless continues to have episodes of significant agitations. Patient is on the CIWA protocol, he seems to require suctioning of his oropharynx, purulent material is noted, patient does have gag with sucti oning and able to protect his airways. But he has a very poor cough reflex. At any rate patient will need to be on oral medications, and I am recommending a nasogastric tube to be placed today, if the patient continues to do poorly may have to consider intubation and mechanical ventilation, however this will be the last resort. In the meantime I believe the patient will remain on the same medications he is presently on and will remain on the CIWA protocol. Needs definitely close monitoring in the ICU. Patient is purulent secretions I recommended empirically starting the patient on Zosyn. WBC count is 7.4 hemoglobin 11.3 basic metabolic profile is normal except for low potassium of 3.2 renal profile is normal lipase is down to 72 amylase is normal Patient was reevaluated today on 10/27/2023, patient received significant amount of sedation yesterday, and continued to be restless and agitated, at 1 point he desaturated, and he was gurgling with secretions, I was made aware of the clarisa trevino and recommended intubation. Patient was intubated and placed on mechanical ventilation overnight, he is on assist-control rate of 20 tidal volume 400 FiO2 40% and PEEP of 5 ABG showed a pO2 of 131 pCO2 34 pH of 7.30 hence kept on the same ventilator settings. He is on propofol at 65 mcg/kg/min is also 1.9 normal saline at 125 cc/h. Patient is receiving bicarb orally for low bicarb. He is also on Zosyn empirically. Patient is also on enteral feeding. Today I went ahead and placed a right radial arterial line for hemodynamic monitoring and for frequent blood draws. WBC count is 5.9 hemoglobin is 9.4. Basic metabolic profile is normal except for bicarb of 14 patient has a hyperchloremic metabolic none anion gap metabolic acidosis. Chest x-ray showed pulmonary vascular congestion, patient received a dose of Lasix earlier this morning Patient was reevaluated today on 10/28/2023, remains in the ICU, intubated and mechanically ventilated. Patient is on assist-control rate of 20 tidal volume 400 FiO2 40% PEEP of 5 ABG showed a pO2 of 160 pCO2 37 pH of 7.34, I cut down his FiO2 down to 35%. Patient is receiving propofol at 55 mcg/kg/min, he is off norepinephrine, receiving 0.9 normal saline at 125 cc/h. Continues to have intermittent episodes of coffee-ground material in the nasogastric tube, hence nutrition/enteral feeding is presently on hold. Chest x-ray is showing some minimal vascular congestion along with small effusions and atelectasis patient remains on Zosyn empirically, he will receive Lasix 1 dose today 20 mg IV push. Patient continues to have significant amount of secretions he was given a trial off sedation patient was agitated, restless, and again significant amount of secretions were noted in the endotracheal tube, hence will hold on weaning today and extubation. WBC count is 3.8 hemoglobin 8.9. Basic metabolic profile is normal, renal profile is normal Patient was reevaluated today on 10/29/2019, remains in the ICU, intubated and mechanically ventilated. Patient was extremely restless and agitated last night on lower dose of sedation, hence his propofol was increased to as high as 70 mcg/kg/min at present. He is requiring Cleviprex at 10 mg/h for tachycardia. He is on IV fluid 0.9 normal saline at 125 cc/h. Continues to have lots of secretions via the endotracheal tube. Patient is to be restarted back on tube feeding, his positioning of the endotracheal tube and nasogastric tube will be adjusted today. Remains on Zosyn his vent settings are 20/400/35%/5 ABG showed a pO2 of 78 pCO2 34 pH of 7.37 chest x-ray today is noted to show mid and lower lung opacities, slightly increased and small pleural effusions. Patient has atelectasis, and may have a component of fluid overload, will continue intermittent diuresis on this patient, patient did receive 40 mg of Lasix IV push today. Cardiogram on this admission showed good LV function ejection fraction of 55 to 60%, and no evidence of valvular heart disease Progress note dated October 30, 2023. This is a 48-year-old male who was admitted on October 21. He came into the hospital, with alcohol withdrawal syndrome. The patient was intubated on October 25 for respiratory failure. He remains on the ventilator. Settings include volume assist-control, rate 20, tidal volume 400, FiO2 35%, with a PEEP of 5. Blood gases show pO2 of 87, pCO2 of 39, pH is 7.43. The patient is on Cleviprex at 1 mg an hour, propofol at 60 mcg/kg/min, saline at KVO, and saline at 30 cc an hour. The patient continues on Zosyn. The patient's sputum revealed evidence of methicillin sensitive Staph aureus. White count is 5.7, hemoglobin 10.1, hematocrit 31.4, and platelet count was 231,000. Sodium 140, potassium 3.4, chlorides 111, CO2 25, BUN 6, creatinine 0.55. Glucose 103. AST 14. Ammonia level was normal. Chest x-ray shows bilateral interstitial and patchy opacities. Progress note dated October 31, 2023. This is a 48-year-old male who was admitted on October 21. He came into the hospital, with alcohol withdrawal syndrome. The patient was intubated on October 25 for respiratory failure. He remains on the ventilator. Current ventilator settings include volume assist-control, rate 20, tidal volume 400, FiO2 35%, PEEP of 5. Blood gases show pO2 of 88, pCO2 46, pH is 7.46. The patient is getting propofol at 70 mcg/kg/min, Cleviprex at 2 mg an hour, and Nepro tube fe edings at 19 cc an hour, which is goal. Today, we will add amlodipine at 5 mg an hour for better blood pressure control, and the patient continues on Zosyn, for staphylococci in the sputum. White count 7.2, hemoglobin 10.2, hematocrit 31, and platelet count was normal. Sodium 140, potassium 3.9, chlorides 106, CO2 31, BUN 8, creatinine 0.52. Glucose is 120. Calcium 8.8. Patient's chest x-ray shows a stable exam with small bilateral pleural effusions, and adjacent atelectasis. Progress note dated November 01, 2023. 48-year-old male who was admitted on October 21. He came to the hospital with alcohol withdrawal syndrome. The patient was intubated on October 25, for respiratory failure. He remains on the ventilator. Settings include volume assist-control, rate 20, tidal volume 400, FiO2 35%, and PEEP of 5. Blood gases show pO2 74, pCO2 45, pH is 7.47. He is on propofol at 70 mcg/kg/min, and Cleviprex at 4 mg an hour. The patient is getting saline at 50 cc an hour. He is also getting tube feedings with Nepro at 27 cc an hour, which is goal. Residuals were high. We added Reglan 10 mg every 6. In addition, because of failure to wean from mechanical ventilation, the patient will have a surgical consultation for possible tracheostomy and PEG tube placement. Current labs include a white count 6.7, hemoglobin 10, hematocrit 30.9, and a platelet count of 305,000. Sodium 139, potassium 3.9, chlorides 106, CO2 31, BUN 11, creatinine 0.62. Glucose is 109. Calcium is 9.1. Sputum from October 25 was positive for Staphylococcus aureus. Chest x-ray is largely unchanged. Progress note dated November 02, 2023. The patient is seen today in room 262. 48-year-old male admitted on October 21. He came into the hospital with alcohol withdrawal syndrome. He was intubated for respiratory failure on October 26, 2023. He remains on the ventilator. Ventilator settings include volume assist-control, rate 20, tidal volume 400, FiO2 35%, and PEEP of 5. Blood gases show pO2 106, pCO2 49, pH is 7.43. The patient is on saline at 20 cc an hour, propofol at 60 mcg/kg/min, and fentanyl 1 mcg/kg/h. He is getting Zosyn IV. The patient is scheduled to have a possible tracheostomy and PEG tube placement today. White count is 8.1, hemoglobin 9.8, hematocrit 29.3, platelet count normal. Sodium 140, potassium 3.9, chlorides 109, CO2 31, BUN 13, creatinine 0.73. Glucose is 96. Calcium 9.1. Sputum Gram stain from 418, showed evidence of Staphylococcus aureus. Chest x-ray shows b ilateral lung opacities. Chest x-ray is essentially unchanged. Progress note dated November 03, 2023. The patient is seen today again in room 262. The patient remains on mechanical ventilator. Ventilator settings include volume assist-control, rate 20, tidal volume 400, FiO2 35%, PEEP of 5. Blood gases show pO2 of 83, pCO2 48, pH of 7.41. The patient continues on propofol at 60 mcg/kg/min, fentanyl at 1 mcg/kg/h, and saline at 10 cc an hour. Tube feedings are on hold, for possible PEG tube placement today, November 02. The patient did have a tracheostomy performed on November 01. I am going to add Dilaudid 1 mg every 6 hours, to his regimen, to see if we can get him off the fentanyl drip. White count 10.8, hemoglobin 10.6, macro 33, with a normal platelet count. Sodium 137, potassium 4.2, chlorides 104, CO2 30, BUN 14, creatinine 0.74. Albumin is 2.8. Glucose is 76. Sputum on October 25 was positive for Staphylococcus aureus. Chest x-ray shows the presence of a tracheostomy tube. Bilateral infiltrates, appear improved. Progress note dated November 04, 2023. This is a 48-year-old male seen today in room 62. The patient remains on mechanical ventilator. He is on volume assist-control, rate 20, tidal volume 400, FiO2 50%, and PEEP of 5. Blood gases show pO2 of 72, pCO2 47, pH is 7.41. The patient continues on fentanyl and 0.5 mcg/kg/h, propofol at 40 mcg/kg/min, lactated Ringer's at 20 cc an hour. Current laboratory data includes a white count 12.5, hemoglobin 9.9, hematocrit 30.3, and platelet count 357,000. Sodium 135, potassium 4.3, chlorides 102, CO2 28, BUN 19, creatinine 0.64. Glucose is 86. Phosphorus 4.7, calcium 9, magnesium 1.9. Sputum from October 25 shows evidence of Staphylococcus aureus. Chest x-ray shows bilateral small effusions, with adjacent atelectasis. Objective - Vital Signs Vital signs: Vital Signs Temp 99.0 F 11/04/23 12:00 Pulse 104 H 11/04/23 12:10 Resp 21 11/04/23 12:00 BP 101/65 11/04/23 12:00 Pulse Ox 96 11/04/23 12:00 FiO2 50 11/04/23 12:01 Intake & Output 11/03/23 11/04/23 11/04/23 18:59 06:59 18:59 Intake Total 320.349 320.266 113.691 Output Total 725 1250 400 Balance -404.651 -929.734 -286.309 Weight 73.1 kg 72.7 kg Intake: IV 120 110 60 Sodium Chloride 0.9% 1, 120 110 60 000 ml @ 10 mls/hr IV . Q24H KELVIN Rx#:[id number] Intake, IV Titration 200.349 210.266 53.691 Amount fentaNYL (PF). 1,000 mcg 85.838 57.543 In Sodium Chloride 0.9% 80 ml @ 1 MCG/KG/HR 7.63 mls/hr IV .Q13H7M [facility]ELVIN Rx# :[id number] propofoL 1,000 mg In 114.511 152.723 53.691 Empty Bag 1 bag @ 15 MCG/ KG/MIN 6.219 mls/hr IV . Q16H5M KELVIN Rx#:[id number] Output: Urine 725 1250 400 Other: Voiding Method Indwelling Catheter Indwelling Catheter Indwelling Catheter ABP, PAP, CO, CI - Last Documented Arterial Blood Pressure 139/69 - Exam No acute distress, currently sedated, with a midline tracheostomy tube. HEENT examination is grossly unremarkable. Neck supple. Full range of motion. No adenopathy thyromegaly or neck vein distention. Cardiovascular examination reveals regular rhythm rate. S1-S2 normal. No S3 or S4. No discernible murmur noted. Heart sounds are distant. Heart rate 104 bpm. Lungs reveal scattered bilateral rhonchi. No wheezes or crackles. Breath sound s equal. Saturations are 97 %. Abdomen soft, with bowel sounds. Extremities are intact. No cyanosis clubbing or edema. Skin is without rash or lesion. Neurologic examination cannot be adequately assessed at this time. - Labs CBC & Chem 7: 11/04/23 04:35 11/04/23 04:35 Labs: Abnormal Lab Results - Last 24 Hours (Table) 11/04/23 11/04/23 11/04/23 Range/Units 04:35 04:35 06:39 WBC 12.5 H (3.8-10.6) k/uL RBC 3.07 L (4.30-5.90) m/uL Hgb 9.9 L (13.0-17.5) gm/dL Hct 30.3 L (39.0-53.0) % ABG pCO2 47 H (35-45) mmHg ABG pO2 72 L (83-108) mmHg ABG HCO3 29 H (21-25) mmol/L ABG Total CO2 31 H (19-24) mmol/L Sodium 135 L (137-145) mmol/L Creatinine 0.64 L (0.66-1.25) mg/dL Phosphorus 4.7 H (2.5-4.5) mg/dL Microbiology - Last 24 Hours (Table) 11/03/23 04:44 Blood Culture - Preliminary Blood Assessment and Plan Assessment: Acute hypoxemic respiratory failure, secondary to acute alcohol withdrawal syndrome, status post intubation and mechanical ventilation, on October 26, 2023. S/P tracheostomy November 02, 2023. Anticipated PEG tube placement, November 06, 2023. Acute alcohol withdrawal with acute alcohol intoxication. Acute alcoholic pancreatitis. Hypertensive urgency. Abdominal pain, secondary to pancreatitis. Acute kidney injury. History of alcoholism. Mild transaminitis. History of coronary artery disease. Current everyday smoker. Plan: Plan dated October 30, 2023. The patient continues on Zosyn for his methicillin sensitive Staph aureus in the sputum. Labs, x-rays, medications are reviewed. The patient's overall prognosis remains guarded. The patient has had a daily interruption of sedation, becomes very agitated. We will continue to follow make recommendations along the way. Prognosis is certainly guarded. No additional recommendations at this time. Plan dated October 31, 2023. The patient remains on Zosyn, for his methicillin sensitive Staph aureus infection in the sputum/lung. Labs, x-rays, and medications are all reviewed. The patient's overall condition remains very guarded. If he does not show any progress towards weaning and extubation, by the end of the week, the patient may end up with a tracheostomy tube, and a PEG tube. We will continue to follow make recommendations along the way. Today we added amlodipine at 5 mg/day, to see if we can wean the patient off the Cleviprex. Patient continues on propofol. The patient also continues on Zosyn. Additional recommendations and suggestions are forthcoming. Plan dated November 01, 2023. The patient is seen today in room 262. The patient is on propofol, Cleviprex, and saline. In addition, tube feedings are currently on hold because of high residuals. Reglan will be added to the regimen. In addition, for some sandy tional comfort for the patient, we will add fentanyl drip, at 1 mcg/kg/h, to start. In addition, we asked surgery to see the patient for possible tracheostomy and PEG tube placement. Labs, x-rays, medications are reviewed. The patient's overall prognosis remains extremely guarded. We will continue to follow, make recommendations along the way. The patient continues on Zosyn. Plan dated November 02, 2023. The patient remains on propofol at 60 mcg/kg/min, and fentanyl at 1 mcg/kg/h. The patient also continues on Zosyn. The patient is scheduled for tracheostomy and PEG tube placement today. Blood gases show pO2 of 106, pCO2 of 49, pH is 7.43. Labs, x-rays, and medications are reviewed. We will continue to follow the patient, make recommendations along the way. The patient's overall prognosis remains very guarded. Plan dated November 03, 2023. The patient is seen today in room 262. The patient had a tracheostomy tube placed yesterday, November 01. The patient is n.p.o., for possible PEG tube placement, today. The patient continues on propofol and fentanyl. We will add some Dilaudid to the regimen, to see if we can wean the fentanyl off completely. Labs, x-rays, and medications are reviewed. Blood gases are reasonable with a pO2 of 83, pCO2 of 48, pH is 7.41. We will continue to follow the patient, and make recommendations along the way. Prognosis is certainly guarded. Plan dated November 04, 2023. The patient's PEG tube will likely be inserted on November 05. We will resume tube feedings in the interim. In addition, we increased his Dilaudid to 1 mg every 4 hours, to see if we can wean off the fentanyl. Labs, x-rays, and medications are reviewed. We will continue to follow make recommendations along the way. The patient's overall prognosis remains guarded. Hopefully, we will be able to get this patient extubated. Time with Patient: Greater than 30
--- NOTE | 2023-11-04 14:09 | P.PN ---
Subjective Progress Note Date: 11/04/23 48-year-old white male with past medical history significant for hypertension, coronary artery disease, current everyday smoker, and alcohol abuse. He was transferred from [facility] 10/22/2023 for acute pancreatitis. He was noted to be intoxicated on arrival to outside facility, with an alcohol level of 34 mg/dL. He required ICU admission for Precedex infusion. He was also noted to have severely elevated lipase and amylase levels. An abdominal and pelvis CT was performed, which identified peripancreatic inflammatory stranding and fluid consistent with acute pancreatitis. No pseudoc yst, abscess, or pancreatic necrosis. No gallstones or ductal dilation. There was decreased attenuation of the hepatic parenchyma, suggestive of fatty infiltration. Patient was dehdydrated and noted to have sustained an WILFRIDO. It appears he was fluid resuscitated with 2 L of crystalloid fluid. He was then transferred to [facility]. CBC from yesterday: WBC count 7.6, hemoglobin 13.9, hematocrit 42, platelets 110. Most recent CMP from yesterday: Sodium 138, potassium 4.4, chloride 108, serum bicarb 19, BUN 18, creatinine 1.13, glucose 94. AST 97, ALT 74, ALP 156, total bilirubin 1. Lipase 11,329 and amylase 1468. Patient is currently lethargic and not making much sense when talking. Unsure of when last drink was. Precedex is infusing at 0.4 mcg/kg/h. He does have bilateral upper extremity soft restraints on, which likely can be discontinued. Blood pressure is noted to be hypertensive, has received a clonidine 0.2 mg patch, which is fallen off and will be replaced. EKG shows normal sinus rhythm without any obvious acute ischemic changes. Patient's pain appears well-managed with current regimen of as needed Dilaudid. He does have some facial grimacing with palpation of the bilateral upper abdomen. Normal saline is infusing at 150 MLS per hour. Currently on room air, in no acute respiratory distress. Afebrile. He has been moved to room 262 in the intensive care unit. 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 He is on volume assist-control Blood gases show pO2 of 72, pCO2 47, pH is 7.41. Lab review shows white count 12.5, hemoglobin 9.9, hematocrit 30.3, and platelet count 357,000. Sodium 135, potassium 4.3, chlorides 102, CO2 28, BUN 19, creatinine 0.64. Glucose is 86. Phosphorus 4.7, calcium 9, magnesium 1.9. Sputum from October 25 shows evidence of Staphylococcus aureus. Chest x-ray shows bilateral small effusions, with adjacent atelectasis. -- Plan for PEG tube placement on 11/06/2023; and has been placed back on tube feeding -Intensive care service planning to wean off the fentanyl, patient has been placed on Dilaudid 1 mg every 4 hours -- Patient is status post tracheostomy; PEG tube placement rescheduled for Monday due to nonavailability of OR Objective - Vital Signs Vital signs: Vital Signs Temp 99.5 F 11/04/23 04:00 Pulse 134 H 11/04/23 08:39 Resp 20 11/04/23 07:00 BP 104/63 11/04/23 07:00 Pulse Ox 95 11/04/23 07:00 FiO2 50 11/04/23 08:20 Intake & Output 11/03/23 11/04/23 11/04/23 18:59 06:59 18:59 Intake Total 320.349 320.266 10 Output Total 725 1250 75 Balance -404.651 -929.734 -65 Weight 73.1 kg 72.7 kg Intake: IV 120 110 10 Sodium Chloride 0.9% 1, 120 110 10 000 ml @ 10 mls/hr IV . Q24H [facility] Rx#:[id number] Intake, IV Titration 200.349 210.266 Amount fentaNYL (PF). 1,000 mcg 85.838 57.543 In Sodium Chloride 0.9% 80 ml @ 1 MCG/KG/HR 7.63 mls/hr IV .Q13H7M [facility] Rx# :[id number] propofoL 1,000 mg In 114.511 152.723 Empty Bag 1 bag @ 15 MCG/ KG/MIN 6.219 mls/hr IV . Q16H5M [facility] Rx#:[id number] Output: Urine 725 1250 75 Other: Voiding Method Indwelling Catheter Indwelling Catheter ABP, PAP, CO, CI - Last Documented Arterial Blood Pressure 102/52 - Exam Patient is sedated, intubated and on mechanical ventilator.. HEENT: Normocephalic. Neck is supple. Pupils reactive. Nostrils clear. Oral cavity is moist. Neck reveals no JVD, carotid bruits, or thyromegaly. CHEST EXAMINATION: Trachea is central. Symmetrical expansion. Lung ghotra clear to auscultation and percussion. CARDIAC: Normal S1, S2 with no gallops. No murmurs ABDOMEN: Soft. Bowel sounds normal. No organomegaly. No abdominal bruits. Extremities: reveal no edema. No clubbing or cyanosis Neurologically sedated and intubated. No gross focal deficits noted Skin: No rash or skin lesions. Psychiatric: Could not be assessed at this time Musculoskeletal: No joint swelling or deformity. - Labs CBC & Chem 7: 11/04/23 04:35 11/04/23 04:35 Labs: Abnormal Lab Results - Last 24 Hours (Table) 11/04/23 11/04/23 11/04/23 Range/Units 04:35 04:35 06:39 WBC 12.5 H (3.8-10.6) k/uL RBC 3.07 L (4.30-5.90) m/uL Hgb 9.9 L (13.0-17.5) gm/dL Hct 30.3 L (39.0-53.0) % ABG pCO2 47 H (35-45) mmHg ABG pO2 72 L (83-108) mmHg ABG HCO3 29 H (21-25) mmol/L ABG Total CO2 31 H (19-24) mmol/L Sodium 135 L (137-145) mmol/L Creatinine 0.64 L (0.66-1.25) mg/dL Phosphorus 4.7 H (2.5-4.5) mg/dL Assessment and Plan Assessment: Acute hypoxemic respiratory failure second alcohol withdrawal symptoms and DTs currently intubated and on mechanical ventilator since October 26, 2023 Acute alcohol withdrawal symptoms and DTs Uncontrolled hypertension. Improved now. Acute pancreatitis likely alcohol-related Acute kidney injury likely prerenal improved now. Severe alcohol abuse Mild transaminitis improved History of coronary disease Currently everyday smoker GI and DVT prophylaxis Plan: Patient is on mechanical ventilator. Continued on propofol and fentanyl drip was added. Cleviprex is off. Continue to titrate blood pressure medications. Continue with tube feedings. IV fluids to KVO.. Monitor urine output. Antibiotics have been discontinued. Daily weaning trials as per critical care team. General surgery was consulted for possible trach and PEG tube placement Continue to follow closely
[2023-11-04 17:36] LABS: Glucose,Whole Blood 90 mg/dL (70-110)
--- NOTE | 2023-11-04 18:25 | P.PN ---
Subjective Progress Note Date: 11/04/23 Currently on ventilatory support. Patient is status post tracheostomy and PEG tube placement. Currently on tube feeds. Neck: Tracheostomy site clean dry intact. Abdomen: Gastrostomy tube intact. Plan: 1. Weaning trials for vent dependent respiratory failure 2. Adjust tube feeds to goal per dietitian Objective - Vital Signs Vital signs: Vital Signs Temp 99.1 F 11/04/23 16:00 Pulse 108 H 11/04/23 17:00 Resp 20 11/04/23 17:00 BP 110/70 11/04/23 17:00 Pulse Ox 97 11/04/23 17:00 FiO2 50 11/04/23 16:00 Intake & Output 11/03/23 11/04/23 11/04/23 18:59 06:59 18:59 Intake Total 320.349 320.266 365.325 Output Total 725 1250 650 Balance -404.651 -929.734 -284.675 Weight 73.1 kg 72.7 kg Intake: IV 120 110 110 Sodium Chloride 0.9% 1, 120 110 110 000 ml @ 10 mls/hr IV . Q24H [facility] Rx#:[id number] Intake, IV Titration 200.349 210.266 185.325 Amount fentaNYL (PF). 1,000 mcg 85.838 57.543 50.994 In Sodium Chloride 0.9% 80 ml @ 1 MCG/KG/HR 7.63 mls/hr IV .Q13H7M [facility] Rx# :[id number] propofoL 1,000 mg In 114.511 152.723 134.331 Empty Bag 1 bag @ 15 MCG/ KG/MIN 6.219 mls/hr IV . Q16H5M [facility] Rx#:[id number] Tube Feeding 70 Output: Urine 725 1250 650 Other: Voiding Method Indwelling Catheter Indwelling Catheter Indwelling Catheter ABP, PAP, CO, CI - Last Documented Arterial Blood Pressure 103/58 - Labs CBC & Chem 7: 11/04/23 04:35 11/04/23 04:35 Labs: Abnormal Lab Results - Last 24 Hours (Table) 11/04/23 11/04/23 11/04/23 Range/Units 04:35 04:35 06:39 WBC 12.5 H (3.8-10.6) k/uL RBC 3.07 L (4.30-5.90) m/uL Hgb 9.9 L (13.0-17.5) gm/dL Hct 30.3 L (39.0-53.0) % ABG pCO2 47 H (35-45) mmHg ABG pO2 72 L (83-108) mmHg ABG HCO3 29 H (21-25) mmol/L ABG Total CO2 31 H (19-24) mmol/L Sodium 135 L (137-145) mmol/L Creatinine 0.64 L (0.66-1.25) mg/dL Phosphorus 4.7 H (2.5-4.5) mg/dL Microbiology - Last 24 Hours (Table) 11/03/23 04:44 Blood Culture - Preliminary Blood
[2023-11-05 00:25] LABS: Glucose,Whole Blood 100 mg/dL (70-110)
[2023-11-05 03:53] LABS: African American GFR (CKD) >90 (>60 ml/min/1.73 sqM); Anion Gap 3 mmol/L; Blood Urea Nitrogen 16 mg/dL (9-20); Calcium 9.2 mg/dL (8.4-10.2); Carbon Dioxide 31 mmol/L (22-30); Chloride 103 mmol/L (98-107); Glucose 92 mg/dL (74-99); Magnesium 1.9 mg/dL (1.6-2.3); Non-African American GFR(CKD) >90 (>60 ml/min/1.73 sqM); Potassium 3.7 mmol/L (3.5-5.1); Sodium 137 mmol/L (137-145)
[2023-11-05 03:54] LABS: Basophils % (A) 0 %; Eosinophils # (A) 0.2 k/uL (0-0.7); Eosinophils % (A) 1 %; HCT 31.8 % (39.0-53.0); HGB 10.5 gm/dL (13.0-17.5); Lymphocytes # (A) 1.2 k/uL (1.0-4.8); Lymphocytes % (A) 9 %; MCH 32.1 pg (25.0-35.0); Mean Platelet Volume 8.5; Monocytes % (A) 7 %; Neutrophils # (A) 11.4 k/uL (1.3-7.7); Neutrophils % (A) 82 %; Platelet Count 365 k/uL (150-450); RBC 3.27 m/uL (4.30-5.90); RDW 14.4 % (11.5-15.5)
[2023-11-05] MEDS: POTASSIUM BICARBONATE/CIT AC 20 MEQ TABLET.EFF NG-TUBE SCH (04:36)
[2023-11-05] MEDS: MAGNESIUM SULFATE-D5W PMX 1 GM in DEXTROSE/WATER 1 100ML.BAG IVPB ONE (04:37)
[2023-11-05 05:37] LABS: ABG Base Excess 8.3 mmol/L; ABG HCO3 32 mmol/L (21-25); ABG Oxygen Saturation 98.7 % (94-97); ABG PCO2 45 mmHg (35-45); ABG PH 7.46 (7.35-7.45); ABG PO2 112 mmHg (83-108); ABG TCO2 34 mmol/L (19-24)
[2023-11-05 06:01] LABS: Allen Test Performed? no
[2023-11-05 06:17] LABS: Glucose,Whole Blood 97 mg/dL (70-110)
--- NOTE | 2023-11-05 12:11 | P.PN ---
Subjective Progress Note Date: 11/05/23 Principal diagnosis: Respiratory failure. Patient is a 48-year-old white male with past medical history significant for hypertension, coronary artery disease, current everyday smoker, and alcohol abuse. He was transferred from [facility] 10/22/2023 for acute pancreatitis. He was noted to be intoxicated on arrival to outside facility, with an alcohol level of 34 mg/dL, while at our facility developed impending acute alcohol withdrawal delirium tremens. He required ICU admission for Precedex infusion. Patient is currently lethargic and not a very good historian . After reviewing the medical records from the outside facility, it appears he presented with abdominal pain. He was also noted to have severely elevated lipase and amylase levels. An abdominal and pelvis CT was performed, which identified peripancreatic inflammatory stranding and fluid consistent with acute pancreatitis. No pseudocyst, abscess, or pancreatic necrosis. No gallstones or ductal dilation. There was decreased attenuation of the hepatic parenchyma, suggestive of fatty infiltration. Patient was dehdydrated and noted to have sustained an WILFRIDO. It appears he was fluid resuscitated with 2 L of crystalloid fluid. He was then transferred to [facility]. He was noted to be steffany tated and combative. He had received multiple doses of Ativan, I am told a total of 16 mg. He was also receiving Haldol. Despite this, he had sustained recorded CIWA scores greater than 28, and for this reason he was placed on a Precedex infusion and admitted to the intensive care unit. Most recent CBC from yesterday: WBC count 7.6, hemoglobin 13.9, hematocrit 42, platelets 110. Most recent CMP from yesterday: Sodium 138, potassium 4.4, chloride 108, serum bicarb 19, BUN 18, creatinine 1.13, glucose 94. AST 97, ALT 74, ALP 156, total bilirubin 1. Lipase 11,329 and amylase 1468. Patient is currently lethargic and not making much sense when talking. Unsure of when last drink was. Precedex is infusing at 0.4 mcg/kg/h. He does have bilateral upper extremity soft restraints on, which likely can be discontinued. Blood pressure is noted to be hypertensive, has received a clonidine 0.2 mg patch, which is fallen off and will be replaced. EKG shows normal sinus rhythm without any obvious acute ischemic changes. Patient's pain appears well-managed with current regimen of as needed Dilaudid. He does have some facial grimacing with palpation of the bilateral upper abdomen. Normal saline is infusing at 150 MLS per hour. Currently on room air, in no acute respiratory distress. Afebrile. He has been moved to room 262 in the intensive care unit. Patient was evaluated today on 10/25/2023, remains in the ICU, remains on Precedex at 1 mcg/kg/h. Remains on Cleviprex. Remains on Ativan intermittently and on Haldol. In spite of all of this the patient continues to have episodes of extreme agitation and restlessness. And seems to be delirious. Continues to have a sitter at bedside. His WBC is 7.8 hemoglobin 11.3 basic metabolic profile is normal renal profile is normal however his bicarb is 15, lipase is down to 164 today, it was 1668 yesterday, amylase is down to 112 from 598 yesterday obviously his acute pancreatitis is improving chest x-ray showed no evidence of active disease, minimal pulmonary vascular prominence Reevaluate today on 10/26/2023, patient remains in the ICU, he is on room air, continues to have intermittent episodes of extreme agitation, remains on Precedex at 1.4 mcg/kg/h, remains on Ativan intermittently and Haldol intermittently, nonetheless continues to have episodes of significant agitations. Patient is on the CIWA protocol, he seems to require suctioning of his oropharynx, purulent material is noted, patient does have gag with sucti oning and able to protect his airways. But he has a very poor cough reflex. At any rate patient will need to be on oral medications, and I am recommending a nasogastric tube to be placed today, if the patient continues to do poorly may have to consider intubation and mechanical ventilation, however this will be the last resort. In the meantime I believe the patient will remain on the same medications he is presently on and will remain on the CIWA protocol. Needs definitely close monitoring in the ICU. Patient is purulent secretions I recommended empirically starting the patient on Zosyn. WBC count is 7.4 hemoglobin 11.3 basic metabolic profile is normal except for low potassium of 3.2 renal profile is normal lipase is down to 72 amylase is normal Patient was reevaluated today on 10/27/2023, patient received significant amount of sedation yesterday, and continued to be restless and agitated, at 1 point he desaturated, and he was gurgling with secretions, I was made aware of the clarisa trevino and recommended intubation. Patient was intubated and placed on mechanical ventilation overnight, he is on assist-control rate of 20 tidal volume 400 FiO2 40% and PEEP of 5 ABG showed a pO2 of 131 pCO2 34 pH of 7.30 hence kept on the same ventilator settings. He is on propofol at 65 mcg/kg/min is also 1.9 normal saline at 125 cc/h. Patient is receiving bicarb orally for low bicarb. He is also on Zosyn empirically. Patient is also on enteral feeding. Today I went ahead and placed a right radial arterial line for hemodynamic monitoring and for frequent blood draws. WBC count is 5.9 hemoglobin is 9.4. Basic metabolic profile is normal except for bicarb of 14 patient has a hyperchloremic metabolic none anion gap metabolic acidosis. Chest x-ray showed pulmonary vascular congestion, patient received a dose of Lasix earlier this morning Patient was reevaluated today on 10/28/2023, remains in the ICU, intubated and mechanically ventilated. Patient is on assist-control rate of 20 tidal volume 400 FiO2 40% PEEP of 5 ABG showed a pO2 of 160 pCO2 37 pH of 7.34, I cut down his FiO2 down to 35%. Patient is receiving propofol at 55 mcg/kg/min, he is off norepinephrine, receiving 0.9 normal saline at 125 cc/h. Continues to have intermittent episodes of coffee-ground material in the nasogastric tube, hence nutrition/enteral feeding is presently on hold. Chest x-ray is showing some minimal vascular congestion along with small effusions and atelectasis patient remains on Zosyn empirically, he will receive Lasix 1 dose today 20 mg IV push. Patient continues to have significant amount of secretions he was given a trial off sedation patient was agitated, restless, and again significant amount of secretions were noted in the endotracheal tube, hence will hold on weaning today and extubation. WBC count is 3.8 hemoglobin 8.9. Basic metabolic profile is normal, renal profile is normal Patient was reevaluated today on 10/29/2019, remains in the ICU, intubated and mechanically ventilated. Patient was extremely restless and agitated last night on lower dose of sedation, hence his propofol was increased to as high as 70 mcg/kg/min at present. He is requiring Cleviprex at 10 mg/h for tachycardia. He is on IV fluid 0.9 normal saline at 125 cc/h. Continues to have lots of secretions via the endotracheal tube. Patient is to be restarted back on tube feeding, his positioning of the endotracheal tube and nasogastric tube will be adjusted today. Remains on Zosyn his vent settings are 20/400/35%/5 ABG showed a pO2 of 78 pCO2 34 pH of 7.37 chest x-ray today is noted to show mid and lower lung opacities, slightly increased and small pleural effusions. Patient has atelectasis, and may have a component of fluid overload, will continue intermittent diuresis on this patient, patient did receive 40 mg of Lasix IV push today. Cardiogram on this admission showed good LV function ejection fraction of 55 to 60%, and no evidence of valvular heart disease Progress note dated October 30, 2023. This is a 48-year-old male who was admitted on October 21. He came into the hospital, with alcohol withdrawal syndrome. The patient was intubated on October 25 for respiratory failure. He remains on the ventilator. Settings include volume assist-control, rate 20, tidal volume 400, FiO2 35%, with a PEEP of 5. Blood gases show pO2 of 87, pCO2 of 39, pH is 7.43. The patient is on Cleviprex at 1 mg an hour, propofol at 60 mcg/kg/min, saline at KVO, and saline at 30 cc an hour. The patient continues on Zosyn. The patient's sputum revealed evidence of methicillin sensitive Staph aureus. White count is 5.7, hemoglobin 10.1, hematocrit 31.4, and platelet count was 231,000. Sodium 140, potassium 3.4, chlorides 111, CO2 25, BUN 6, creatinine 0.55. Glucose 103. AST 14. Ammonia level was normal. Chest x-ray shows bilateral interstitial and patchy opacities. Progress note dated October 31, 2023. This is a 48-year-old male who was admitted on October 21. He came into the hospital, with alcohol withdrawal syndrome. The patient was intubated on October 25 for respiratory failure. He remains on the ventilator. Current ventilator settings include volume assist-control, rate 20, tidal volume 400, FiO2 35%, PEEP of 5. Blood gases show pO2 of 88, pCO2 46, pH is 7.46. The patient is getting propofol at 70 mcg/kg/min, Cleviprex at 2 mg an hour, and Nepro tube fe edings at 19 cc an hour, which is goal. Today, we will add amlodipine at 5 mg an hour for better blood pressure control, and the patient continues on Zosyn, for staphylococci in the sputum. White count 7.2, hemoglobin 10.2, hematocrit 31, and platelet count was normal. Sodium 140, potassium 3.9, chlorides 106, CO2 31, BUN 8, creatinine 0.52. Glucose is 120. Calcium 8.8. Patient's chest x-ray shows a stable exam with small bilateral pleural effusions, and adjacent atelectasis. Progress note dated November 01, 2023. 48-year-old male who was admitted on October 21. He came to the hospital with alcohol withdrawal syndrome. The patient was intubated on October 25, for respiratory failure. He remains on the ventilator. Settings include volume assist-control, rate 20, tidal volume 400, FiO2 35%, and PEEP of 5. Blood gases show pO2 74, pCO2 45, pH is 7.47. He is on propofol at 70 mcg/kg/min, and Cleviprex at 4 mg an hour. The patient is getting saline at 50 cc an hour. He is also getting tube feedings with Nepro at 27 cc an hour, which is goal. Residuals were high. We added Reglan 10 mg every 6. In addition, because of failure to wean from mechanical ventilation, the patient will have a surgical consultation for possible tracheostomy and PEG tube placement. Current labs include a white count 6.7, hemoglobin 10, hematocrit 30.9, and a platelet count of 305,000. Sodium 139, potassium 3.9, chlorides 106, CO2 31, BUN 11, creatinine 0.62. Glucose is 109. Calcium is 9.1. Sputum from October 25 was positive for Staphylococcus aureus. Chest x-ray is largely unchanged. Progress note dated November 02, 2023. The patient is seen today in room 262. 48-year-old male admitted on October 21. He came into the hospital with alcohol withdrawal syndrome. He was intubated for respiratory failure on October 26, 2023. He remains on the ventilator. Ventilator settings include volume assist-control, rate 20, tidal volume 400, FiO2 35%, and PEEP of 5. Blood gases show pO2 106, pCO2 49, pH is 7.43. The patient is on saline at 20 cc an hour, propofol at 60 mcg/kg/min, and fentanyl 1 mcg/kg/h. He is getting Zosyn IV. The patient is scheduled to have a possible tracheostomy and PEG tube placement today. White count is 8.1, hemoglobin 9.8, hematocrit 29.3, platelet count normal. Sodium 140, potassium 3.9, chlorides 109, CO2 31, BUN 13, creatinine 0.73. Glucose is 96. Calcium 9.1. Sputum Gram stain from 418, showed evidence of Staphylococcus aureus. Chest x-ray shows b ilateral lung opacities. Chest x-ray is essentially unchanged. Progress note dated November 03, 2023. The patient is seen today again in room 262. The patient remains on mechanical ventilator. Ventilator settings include volume assist-control, rate 20, tidal volume 400, FiO2 35%, PEEP of 5. Blood gases show pO2 of 83, pCO2 48, pH of 7.41. The patient continues on propofol at 60 mcg/kg/min, fentanyl at 1 mcg/kg/h, and saline at 10 cc an hour. Tube feedings are on hold, for possible PEG tube placement today, November 02. The patient did have a tracheostomy performed on November 01. I am going to add Dilaudid 1 mg every 6 hours, to his regimen, to see if we can get him off the fentanyl drip. White count 10.8, hemoglobin 10.6, macro 33, with a normal platelet count. Sodium 137, potassium 4.2, chlorides 104, CO2 30, BUN 14, creatinine 0.74. Albumin is 2.8. Glucose is 76. Sputum on October 25 was positive for Staphylococcus aureus. Chest x-ray shows the presence of a tracheostomy tube. Bilateral infiltrates, appear improved. Progress note dated November 04, 2023. This is a 48-year-old male seen today in room 62. The patient remains on mechanical ventilator. He is on volume assist-control, rate 20, tidal volume 400, FiO2 50%, and PEEP of 5. Blood gases show pO2 of 72, pCO2 47, pH is 7.41. The patient continues on fentanyl and 0.5 mcg/kg/h, propofol at 40 mcg/kg/min, lactated Ringer's at 20 cc an hour. Current laboratory data includes a white count 12.5, hemoglobin 9.9, hematocrit 30.3, and platelet count 357,000. Sodium 135, potassium 4.3, chlorides 102, CO2 28, BUN 19, creatinine 0.64. Glucose is 86. Phosphorus 4.7, calcium 9, magnesium 1.9. Sputum from October 25 shows evidence of Staphylococcus aureus. Chest x-ray shows bilateral small effusions, with adjacent atelectasis. Progress note dated November 05, 2023. 48-year-old male seen again in room 262. The patient remains on mechanical ventilator. Settings include volume assist-control, rate 20, tidal volume 400, FiO2 50%, PEEP of 5. Blood gases show pO2 112, pCO2 45, pH is 7.46. The patient is getting lactated Ringer's at 20 cc an hour, propofol at 10 mcg/kg/min, and tube feedings with Nepro, at 10 cc an hour, with a goal of 19. The patient is currently not on any antibiotics. We will attempt a daily interruption of sedation, and spontaneous breathing trial today, with a CPAP of 5, and pressure support of 5. White count 14, hemoglobin 10.5, hematocrit 31.8, and platelet count 365,000. Sodium 137, potassium 3.7, chlorides 103, CO2 31, BUN 16, creatinine 0.69. Calcium is 9.2. Magnesium 1.9. Sputum from the was positive for Staphylococcus aureus. The patient has completed his anti biotics. Chest x-ray shows bilateral patchy infiltrates, which could be on the basis of fluid, and or pneumonia. Objective - Vital Signs Vital signs: Vital Signs Temp 99.0 F 11/05/23 08:00 Pulse 105 H 11/05/23 09:00 Resp 20 11/05/23 09:00 BP 117/74 11/05/23 09:00 Pulse Ox 98 11/05/23 09:00 FiO2 50 11/05/23 08:23 Intake & Output 11/04/23 11/05/23 11/05/23 18:59 06:59 18:59 Intake Total 365.325 281.694 231.836 Output Total 650 1255 215 Balance -284.675 -973.306 16.836 Weight 71.6 kg Intake: IV 110 120 30 Sodium Chloride 0.9% 1, 110 120 30 000 ml @ 10 mls/hr IV . Q24H KELVIN Rx#:[id number] Intake, IV Titration 185.325 161.694 21.836 Amount fentaNYL (PF). 1,000 mcg 50.994 In Sodium Chloride 0.9% 80 ml @ 1 MCG/KG/HR 7.63 mls/hr IV .Q13H7M KELVIN Rx# :[id number] propofoL 1,000 mg In 134.331 161.694 21.836 Empty Bag 1 bag @ 15 MCG/ KG/MIN 6.219 mls/hr IV . Q16H5M KELVIN Rx#:[id number] Tube Feeding 70 180 Output: Urine 650 1255 215 Other: Voiding Method Indwelling Catheter Indwelling Catheter Indwelling Catheter ABP, PAP, CO, CI - Last Documented Arterial Blood Pressure 129/65 - Exam No acute distress, currently sedated, with a midline tracheostomy tube. HEENT examination is grossly unremarkable. Neck supple. Full range of motion. No adenopathy thyromegaly or neck vein distention. Cardiovascular examination reveals regular rhythm rate. S1-S2 normal. No S3 or S4. No discernible murmur noted. Heart sounds are distant. Heart rate 100 bpm. Lungs reveal scattered bilateral rhonchi. No wheezes or crackles. Breath sounds equal. Saturations are 98 %. Abdomen soft, with bowel sounds. Extremities are intact. No cyanosis clubbing or edema. Skin is without rash or lesion. Neurologic examination cannot be adequately assessed at this time. - Labs CBC & Chem 7: 11/05/23 03:24 11/05/23 03:24 Labs: Abnormal Lab Results - Last 24 Hours (Table) 11/05/23 11/05/23 11/05/23 Range/Units 03:24 03:24 05:35 WBC 14.0 H (3.8-10.6) k/uL RBC 3.27 L (4.30-5.90) m/uL Hgb 10.5 L (13.0-17.5) gm/dL Hct 31.8 L (39.0-53.0) % Neutrophils # 11.4 H (1.3-7.7) k/uL ABG pH 7.46 H (7.35-7.45) ABG pO2 112 H (83-108) mmHg ABG HCO3 32 H (21-25) mmol/L ABG Total CO2 34 H (19-24) mmol/L ABG O2 Saturation 98.7 H (94-97) % Carbon Dioxide 31 H (22-30) mmol/L Microbiology - Last 24 Hours (Table) 11/03/23 04:44 Blood Culture - Preliminary Blood Assessment and Plan Assessment: Acute hypoxemic respiratory failure, secondary to acute alcohol withdrawal syndrome, status post intubation and mechanical ventilation, on October 26, 2023. S/P tracheostomy November 02, 2023. Anticipated PEG tube placement, November 06, 2023. Acute alcohol withdrawal with acute alcohol intoxication. Acute alcoholic pancreatitis. Hypertensive urgency. Abdominal pain, secondary to pancreatitis. Acute kidney injury. History of alcoholism. Mild transaminitis. History of coronary artery disease. Current everyday smoker. Plan: Plan dated October 30, 2023. The patient continues on Zosyn for his methicillin sensitive Staph aureus in the sputum. Labs, x-rays, medications are reviewed. The patient's overall prognosis remains guarded. The patient has had a daily interruption of sedation, becomes very agitated. We will continue to follow make recommendations along the way. Prognosis is certainly guarded. No additional recommendations at this time. Plan dated October 31, 2023. The patient remains on Zosyn, for his methicillin sensitive Staph aureus infection in the sputum/lung. Labs, x-rays, and medications are all reviewed. The patient's overall condition remains very guarded. If he does not show any progress towards weaning and extubation, by the end of the week, the patient may end up with a tracheostomy tube, and a PEG tube. We will continue to follow katie zapata recommendations along the way. Today we added amlodipine at 5 mg/day, to see if we can wean the patient off the Cleviprex. Patient continues on propofol. The patient also continues on Zosyn. Additional recommendations and suggestions are forthcoming. Plan dated November 01, 2023. The patient is seen today in room 262. The patient is on propofol, Cleviprex, and saline. In addition, tube feedings are currently on hold because of high residuals. Reglan will be added to the regimen. In addition, for some additional comfort for the patient, we will add fentanyl drip, at 1 mcg/kg/h, to start. In addition, we asked surgery to see the patient for possible tracheostomy and PEG tube placement. Labs, x-rays, medications are reviewed. The patient's overall prognosis remains extremely guarded. We will continue to follow, make recommendations along the way. The patient continues on Zosyn. Plan dated November 02, 2023. The patient remains on propofol at 60 mcg/kg/min, and fentanyl at 1 mcg/kg/h. The patient also continues on Zosyn. The patient is scheduled for tracheostomy and PEG tube placement today. Blood gases show pO2 of 106, pCO2 of 49, pH is 7.43. Labs, x-rays, and medications are reviewed. We will continue to follow the patient, make recommendations along the way. The patient's overall prognosis remains very guarded. Plan dated November 03, 2023. The patient is seen today in room 262. The patient had a tracheostomy tube placed yesterday, November 01. The patient is n.p.o., for possible PEG tube placement, today. The patient continues on propofol and fentanyl. We will add some Dilaudid to the regimen, to see if we can wean the fentanyl off completely. Labs, x-rays, and medications are reviewed. Blood gases are reasonable with a pO2 of 83, pCO2 of 48, pH is 7.41. We will continue to follow the patient, and make recommendations along the way. Prognosis is certainly guarded. Plan dated November 04, 2023. The patient's PEG tube will likely be inserted on November 05. We will resume tube feedings in the interim. In addition, we increased his Dilaudid to 1 mg every 4 hours, to see if we can wean off the fentanyl. Labs, x-rays, and medications are reviewed. We will continue to follow make recommendations along the way. The patient's overall prognosis remains guarded. Hopefully, we will be able to get this patient extubated. Plan dated November 05, 2023. The patient appears to be doing reasonably well. He appears to be stable. He continues on propofol at 10 mcg/kg/min. He is receiving tube feedings. The patient is scheduled to have a PEG tube placed tomorrow. The patient will go for a daily interruption of sedation, and spontaneous breathing trial today, on 5 4 support, 5 with CPAP. The patient has completed his antibiotics. Blood gases show pO2 112, pCO2 45, pH is 7.46. Labs, x-rays, and medications are reviewed. We will continue to follow the patient, and make recommendations along the way. The patient's overall prognosis remains very guarded. Time with Patient: Greater than 30
[2023-11-05 12:24] LABS: Glucose,Whole Blood 105 mg/dL (70-110)
--- NOTE | 2023-11-05 12:25 | P.PN ---
Subjective Progress Note Date: 11/05/23 patient [place] stable. Tracheostomy tube site is clean. Patient will have PEG tube placementon Monday.. Objective - Vital Signs Vital signs: Vital Signs Temp 99.0 F 11/05/23 08:00 Pulse 86 11/05/23 12:20 Resp 20 11/05/23 09:00 BP 117/74 11/05/23 09:00 Pulse Ox 98 11/05/23 09:00 FiO2 50 11/05/23 12:19 Intake & Output 11/04/23 11/05/23 11/05/23 18:59 06:59 18:59 Intake Total 365.325 281.694 231.836 Output Total 650 1255 215 Balance -284.675 -973.306 16.836 Weight 71.6 kg Intake: IV 110 120 30 Sodium Chloride 0.9% 1, 110 120 30 000 ml @ 10 mls/hr IV . Q24H [facility]IN Rx#:[id number] Intake, IV Titration 185.325 161.694 21.836 Amount fentaNYL (PF). 1,000 mcg 50.994 In Sodium Chloride 0.9% 80 ml @ 1 MCG/KG/HR 7.63 mls/hr IV .Q13H7M [facility] Rx# :[id number] propofoL 1,000 mg In 134.331 161.694 21.836 Empty Bag 1 bag @ 15 MCG/ KG/MIN 6.219 mls/hr IV . Q16H5M KELVIN Rx#:[id number] Tube Feeding 70 180 Output: Urine 650 1255 215 Other: Voiding Method Indwelling Catheter Indwelling Catheter Indwelling Catheter ABP, PAP, CO, CI - Last Documented Arterial Blood Pressure 129/65 - Labs CBC & Chem 7: 11/05/23 03:24 11/05/23 03:24 Labs: Abnormal Lab Results - Last 24 Hours (Table) 11/05/23 11/05/23 11/05/23 Range/Units 03:24 03:24 05:35 WBC 14.0 H (3.8-10.6) k/uL RBC 3.27 L (4.30-5.90) m/uL Hgb 10.5 L (13.0-17.5) gm/dL Hct 31.8 L (39.0-53.0) % Neutrophils # 11.4 H (1.3-7.7) k/uL ABG pH 7.46 H (7.35-7.45) ABG pO2 112 H (83-108) mmHg ABG HCO3 32 H (21-25) mmol/L ABG Total CO2 34 H (19-24) mmol/L ABG O2 Saturation 98.7 H (94-97) % Carbon Dioxide 31 H (22-30) mmol/L Microbiology - Last 24 Hours (Table) 11/03/23 04:44 Blood Culture - Preliminary Blood
--- NOTE | 2023-11-05 12:29 | P.OP ---
Date of Procedure: 11/02/23 Preoperative Diagnosis: respiratory failure Postoperative Diagnosis: respiratory failure Procedure(s) Performed: tracheostomy tube Anesthesia: INGRID Surgeon: Clarence Colin Estimated Blood Loss (ml): 5 Pathology: none sent Condition: stable Disposition: PACU Operative Findings: #8 Sherman cuffed tracheostomy tube Description of Procedure: The patient's placed on the bed in the supine position. The patient received general anesthesia. The neck was prepped and draped in usual sterile fashion. A standard transverse skin incision was made approximately 2 cm above the sternal notch. Using electrocautery the subcutaneous tissues were divided. The platysma was divided. A Wheatlander retractor was placed in the wound. Next the strap muscles were divided in the midline. Another weatlander retractor was placed the wound. The pretracheal fat was then divided with left cautery. The trachea was exposed. At this point the HOUSE PLAYER advance the and the tracheal tube into the right mainstem bronchus. The balloon was inflated. A tracheotomy was then performed between the second and third tracheal rings. The perivascular tissues a gracilis the trachea. The endotracheal tube was brought back under direct vision. And then the #8 Portex tracheostomy tube was placed into the trachea. End-tidal CO2 was confirmed. The patient had been connected to the ventilator. The patient was ventilated satisfactory. The skin incision site was then closed with 3-0 nylon after the retractors were withdrawn. An umbilical tie was used to secure the tracheostomy tube.
--- NOTE | 2023-11-05 15:50 | P.PN ---
Subjective Progress Note Date: 11/05/23 48-year-old white male with past medical history significant for hypertension, coronary artery disease, current everyday smoker, and alcohol abuse. He was transferred from [facility] 10/22/2023 for acute pancreatitis. He was noted to be intoxicated on arrival to outside facility, with an alcohol level of 34 mg/dL. He required ICU admission for Precedex infusion. He was also noted to have severely elevated lipase and amylase levels. An abdominal and pelvis CT was performed, which identified peripancreatic inflammatory stranding and fluid consistent with acute pancreatitis. No pseudoc yst, abscess, or pancreatic necrosis. No gallstones or ductal dilation. There was decreased attenuation of the hepatic parenchyma, suggestive of fatty infiltration. Patient was dehdydrated and noted to have sustained an WLIFRIDO. It appears he was fluid resuscitated with 2 L of crystalloid fluid. He was then transferred to [facility]. CBC from yesterday: WBC count 7.6, hemoglobin 13.9, hematocrit 42, platelets 110. Most recent CMP from yesterday: Sodium 138, potassium 4.4, chloride 108, serum bicarb 19, BUN 18, creatinine 1.13, glucose 94. AST 97, ALT 74, ALP 156, total bilirubin 1. Lipase 11,329 and amylase 1468. Patient is currently lethargic and not making much sense when talking. Unsure of when last drink was. Precedex is infusing at 0.4 mcg/kg/h. He does have bilateral upper extremity soft restraints on, which likely can be discontinued. Blood pressure is noted to be hypertensive, has received a clonidine 0.2 mg patch, which is fallen off and will be replaced. EKG shows normal sinus rhythm without any obvious acute ischemic changes. Patient's pain appears well-managed with current regimen of as needed Dilaudid. He does have some facial grimacing with palpation of the bilateral upper abdomen. Normal saline is infusing at 150 MLS per hour. Currently on room air, in no acute respiratory distress. Afebrile. He has been moved to room 262 in the intensive care unit. -- Plan of care was discussed with patient's mother; reports she was told by family noticed that patient is now qualifying for hospice/palliative care -- Patient condition discussed in great detail; sales representative womens health recommendations discussed with patient also; no plan to consult hospice or palliative care at this time 11/04/2023 Patient is seen and evaluated in room at bedside; discussed with nursing staff; no family members present in the room Patient remains on mechanical ventilator. He is on volume assist-control Blood gases show pO2 of 72, pCO2 47, pH is 7.41. Lab review shows white count 12.5, hemoglobin 9.9, hematocrit 30.3, and platelet count 357,000. Sodium 135, potassium 4.3, chlorides 102, CO2 28, BUN 19, creatinine 0.64. Glucose is 86. Phosphorus 4.7, calcium 9, magnesium 1.9. Sputum from October 25 shows evidence of Staphylococcus aureus. Chest x-ray shows bilateral small effusions, with adjacent atelectasis. -- Plan for PEG tube placement on 11/06/2023; and has been placed back on tube feeding -Intensive care service planning to wean off the fentanyl, patient has been placed on Dilaudid 1 mg every 4 hours -- Patient is status post tracheostomy; PEG tube placement rescheduled for Monday due to nonavailability of OR 11/05/2023 Patient is seen and evaluated in room at bedside; patient remains on mechanical ventilator. Settings include volume assist-control, rate 20, tidal volume 400, FiO2 50%, PEEP of 5. -- Blood gases show pO2 112, pCO2 45, pH is 7.46. The patient is getting lactated Ringer's at 20 cc an hour, propofol at 10 mcg/kg/min, and tube feedings with Nepro, at 10 cc an hour, with a goal of 19. - White count 14, hemoglobin 10.5, hematocrit 31.8, and platelet count 365,000. Sodium 137, potassium 3.7, chlorides 103, CO2 31, BUN 16, creatinine 0.69. Calcium is 9.2. Magnesium 1.9. Sputum from the was positive for Staphylococcus aureus. The patient has completed his antibiotics. Chest x-ray shows bilateral patchy infiltrates, which could be on the basis of fluid, and or pneumonia. Objective - Vital Signs Vital signs: Vital Signs Temp 99.0 F 11/05/23 08:00 Pulse 105 H 11/05/23 09:00 Resp 20 11/05/23 09:00 BP 117/74 11/05/23 09:00 Pulse Ox 98 11/05/23 09:00 FiO2 50 11/05/23 08:23 Intake & Output 11/04/23 11/05/23 11/05/23 18:59 06:59 18:59 Intake Total 365.325 281.694 231.836 Output Total 650 1255 215 Balance -284.675 -973.306 16.836 Weight 71.6 kg Intake: IV 110 120 30 Sodium Chloride 0.9% 1, 110 120 30 000 ml @ 10 mls/hr IV . Q24H KELVIN Rx#:[id number] Intake, IV Titration 185.325 161.694 21.836 Amount fentaNYL (PF). 1,000 mcg 50.994 In Sodium Chloride 0.9% 80 ml @ 1 MCG/KG/HR 7.63 mls/hr IV .Q13H7M KELVIN Rx# :[id number] propofoL 1,000 mg In 134.331 161.694 21.836 Empty Bag 1 bag @ 15 MCG/ KG/MIN 6.219 mls/hr IV . Q16H5M KELVIN Rx#:[id number] Tube Feeding 70 180 Output: Urine 650 1255 215 Other: Voiding Method Indwelling Catheter Indwelling Catheter Indwelling Catheter ABP, PAP, CO, CI - Last Documented Arterial Blood Pressure 129/65 - Exam Patient is sedated, intubated and on mechanical ventilator.. HEENT: Normocephalic. Neck is supple. Pupils reactive. Nostrils clear. Oral cavity is moist. Neck reveals no JVD, carotid bruits, or thyromegaly. CHEST EXAMINATION: Trachea is central. Symmetrical expansion. Lung ghotra clear to auscultation and percussion. CARDIAC: Normal S1, S2 with no gallops. No murmurs ABDOMEN: Soft. Bowel sounds normal. No organomegaly. No abdominal bruits. Extremities: reveal no edema. No clubbing or cyanosis Neurologically sedated and intubated. No gross focal deficits noted Skin: No rash or skin lesions. Psychiatric: Could not be assessed at this time Musculoskeletal: No joint swelling or deformity. - Labs CBC & Chem 7: 11/05/23 03:24 11/05/23 03:24 Labs: Abnormal Lab Results - Last 24 Hours (Table) 11/05/23 11/05/23 11/05/23 Range/Units 03:24 03:24 05:35 WBC 14.0 H (3.8-10.6) k/uL RBC 3.27 L (4.30-5.90) m/uL Hgb 10.5 L (13.0-17.5) gm/dL Hct 31.8 L (39.0-53.0) % Neutrophils # 11.4 H (1.3-7.7) k/uL ABG pH 7.46 H (7.35-7.45) ABG pO2 112 H (83-108) mmHg ABG HCO3 32 H (21-25) mmol/L ABG Total CO2 34 H (19-24) mmol/L ABG O2 Saturation 98.7 H (94-97) % Carbon Dioxide 31 H (22-30) mmol/L Microbiology - Last 24 Hours (Table) 11/03/23 04:44 Blood Culture - Preliminary Blood Assessment and Plan Assessment: Acute hypoxemic respiratory failure second alcohol withdrawal symptoms and DTs currently intubated and on mechanical ventilator since October 26, 2023 Acute alcohol withdrawal symptoms and DTs Uncontrolled hypertension. Improved now. Acute pancreatitis likely alcohol-related Acute kidney injury likely prerenal improved now. Severe alcohol abuse Mild transaminitis improved History of coronary disease Currently everyday smoker GI and DVT prophylaxis Plan: Patient is on mechanical ventilator. Continued on propofol and fentanyl drip was added. Cleviprex is off. Continue to titrate blood pressure medications. Continue with tube feedings. IV fluids to KVO.. Monitor urine output. Antibiotics have been discontinued. Daily weaning trials as per critical care team. General surgery was consulted for possible trach and PEG tube placement Continue to follow closely
--- NOTE | 2023-11-05 16:37 | XR ---
EXAMINATION TYPE: XR chest 1V DATE OF EXAM: 11/05/2023 5:32 AM CLINICAL INDICATION:Male, 48 years old with history of mechanical ventilation; [facility] COMPARISON: 11/04/2023 TECHNIQUE: XR chest 1V Portable AP radiograph of the chest.. FINDINGS: Tracheostomy cannula and NG tube appear stable. The NG tube could be advanced a few more centimeters for more optional positioning. Cardiomediastinal silhouette is stable. Heart size upper normal. No evidence of pneumothorax. There is a similar appearance of bibasilar pleural/parenchymal opacities and mild interstitial density. In addition, there is slight worsening of patchy opacity suggesting a irspace disease in the right more than left perihilar regions. Osseous structures unchanged. IMPRESSION: 1. Persistent bibasilar pleural/parenchymal opacities. 2. There are additional patchy airspace opacities in the perihilar regions.
[2023-11-05 18:22] LABS: Glucose,Whole Blood 103 mg/dL (70-110)
[2023-11-05 19:33] LABS: African American GFR (CKD) >90 (>60 ml/min/1.73 sqM); Anion Gap 8 mmol/L; Blood Urea Nitrogen 15 mg/dL (9-20); Calcium 9.4 mg/dL (8.4-10.2); Carbon Dioxide 29 mmol/L (22-30); Chloride 102 mmol/L (98-107); Glucose 96 mg/dL (74-99); Non-African American GFR(CKD) >90 (>60 ml/min/1.73 sqM); Potassium 3.8 mmol/L (3.5-5.1); Sodium 139 mmol/L (137-145)
[2023-11-06 00:45] LABS: Glucose,Whole Blood 104 mg/dL (70-110)
[2023-11-06 05:04] LABS: ABG Base Excess 7.7 mmol/L; ABG HCO3 32 mmol/L (21-25); ABG Oxygen Saturation 98.1 % (94-97); ABG PCO2 47 mmHg (35-45); ABG PH 7.44 (7.35-7.45); ABG PO2 94 mmHg (83-108); ABG TCO2 33 mmol/L (19-24)
[2023-11-06 05:12] LABS: Basophils % (A) 0 %; Eosinophils # (A) 0.2 k/uL (0-0.7); Eosinophils % (A) 2 %; HCT 28.3 % (39.0-53.0); HGB 9.2 gm/dL (13.0-17.5); Lymphocytes # (A) 0.9 k/uL (1.0-4.8); Lymphocytes % (A) 10 %; MCH 31.2 pg (25.0-35.0); MCHC 32.4 g/dL (31.0-37.0); MCV 96.4 fL (80.0-100.0); Mean Platelet Volume 8.6; Monocytes # (A) 0.7 k/uL (0-1.0); Monocytes % (A) 8 %; Neutrophils # (A) 7.1 k/uL (1.3-7.7); Neutrophils % (A) 79 %; Platelet Count 383 k/uL (150-450); RBC 2.94 m/uL (4.30-5.90); RDW 14.1 % (11.5-15.5)
[2023-11-06 05:19] LABS: Allen Test Performed? no
[2023-11-06 05:40] LABS: African American GFR (CKD) >90 (>60 ml/min/1.73 sqM); Anion Gap 3 mmol/L; Blood Urea Nitrogen 14 mg/dL (9-20); Calcium 9.3 mg/dL (8.4-10.2); Carbon Dioxide 31 mmol/L (22-30); Chloride 102 mmol/L (98-107); Glucose 99 mg/dL (74-99); Non-African American GFR(CKD) >90 (>60 ml/min/1.73 sqM); Potassium 3.6 mmol/L (3.5-5.1); Sodium 136 mmol/L (137-145)
[2023-11-06 06:07] LABS: Glucose,Whole Blood 83 mg/dL (70-110)
[2023-11-06] MEDS: POTASSIUM CHLORIDE 10 MEQ in WATER FOR INJECTION 1 100ML.BAG IVPB SCH (06:11)
--- NOTE | 2023-11-06 08:10 | XR ---
EXAMINATION TYPE: XR chest 1V portable DATE OF EXAM: 11/06/2023 COMPARISON: 11/05/2023 HISTORY: Shortness of breath TECHNIQUE: Single frontal view of the chest is obtained. FINDINGS: Tracheostomy tube and NG tube stable. Diffuse bilateral consolidation with small effusion. No pneumothorax. Heart mildly enlarged. Degenerative change of the spine. IMPRESSION: Diffuse bilateral infiltrate and small effusion correlate for CHF otherwise consider pne umonia. Findings stable.
[2023-11-06] MEDS: POTASSIUM BICARBONATE/CIT AC 20 MEQ TABLET.EFF NG-TUBE ONE (08:56)
[2023-11-06 12:16] LABS: Glucose,Whole Blood 93 mg/dL (70-110)
--- NOTE | 2023-11-06 12:24 | P.PN ---
Subjective Progress Note Date: 11/06/23 CHIEF COMPLAINT: Abdominal pain HISTORY OF PRESENT ILLNESS: Patient is status post tracheostomy placement. He is scheduled for PEG tube placement today. Afebrile. WBC is 9 hemoglobin 9.2 platelets 383 sodium 136 potassium 3.6 creatinine 0.74 PHYSICAL EXAM: VITAL SIGNS: Reviewed. GENERAL: no acute distress. Neck: trach site clean, dry and intact ABDOMEN: Soft. Nondistended. ASSESSMENT: 1. Acute hypoxic respiratory failure due to alcohol withdraw syndrome 2. Severe protein calorie malnutrition 3. Acute pancreatitis PLAN: -Patient scheduled for PEG tube placement today with Dr. Colin Physician Ct Technician note has been reviewed by physician. Signing provider agrees with the documented findings, assessment, and plan of care. Objective - Vital Signs Vital signs: Vital Signs Temp 99.3 F 11/06/23 08:00 Pulse 97 11/06/23 09:55 Resp 20 11/06/23 08:00 BP 110/74 11/06/23 08:00 Pulse Ox 97 11/06/23 08:00 FiO2 50 11/06/23 10:01 Intake & Output 11/05/23 11/06/23 11/06/23 18:59 06:59 18:59 Intake Total 581.836 490.368 231.814 Output Total 890 1020 310 Balance -308.164 -529.632 -78.186 Weight 72 kg Intake: IV 120 120 30 Sodium Chloride 0.9% 1, 120 120 30 000 ml @ 10 mls/hr IV . Q24H KELVIN Rx#:[id number] Intake, IV Titration 121.836 260.368 81.814 Amount propofoL 1,000 mg In 121.836 260.368 81.814 Empty Bag 1 bag @ 15 MCG/ KG/MIN 6.219 mls/hr IV . Q16H5M KELVIN Rx#:[id number] Tube Feeding 340 80 Other 30 120 Output: Urine 890 1020 310 Other: Voiding Method Indwelling Catheter Indwelling Catheter ABP, PAP, CO, CI - Last Documented Arterial Blood Pressure 108/56 - Labs CBC & Chem 7: 11/06/23 04:57 11/06/23 04:57 Labs: Abnormal Lab Results - Last 24 Hours (Table) 11/06/23 11/06/23 11/06/23 Range/Units 04:57 04:57 05:03 RBC 2.94 L (4.30-5.90) m/uL Hgb 9.2 L (13.0-17.5) gm/dL Hct 28.3 L (39.0-53.0) % Lymphocytes # 0.9 L (1.0-4.8) k/uL ABG pCO2 47 H (35-45) mmHg ABG HCO3 32 H (21-25) mmol/L ABG Total CO2 33 H (19-24) mmol/L ABG O2 Saturation 98.1 H (94-97) % Sodium 136 L (137-145) mmol/L Carbon Dioxide 31 H (22-30) mmol/L Microbiology - Last 24 Hours (Table) 11/03/23 04:44 Blood Culture - Preliminary Blood
--- NOTE | 2023-11-06 14:13 | P.PN ---
Subjective Progress Note Date: 11/06/23 Patient is a 48-year-old white male with past medical history significant for hypertension, coronary artery disease, current everyday smoker, and alcohol abuse. He was transferred from [facility] 10/22/2023 for acute pancreatitis. He was noted to be intoxicated on arrival to outside facility, with an alcohol level of 34 mg/dL, while at our facility developed impending acute alcohol withdrawal delirium tremens. He required ICU admission for Precedex infusion. Patient is currently lethargic and not a very good historian. After reviewing the medical records from the outside facility, it appears he presented with abdominal pain. He was also noted to have severely elevated lipase and amylase levels. An abdominal and pelvis CT was performed, which identified peripancreatic inflammatory stranding and fluid consistent with acute pancreatitis. No pseudocyst, abscess, or pancreatic necrosis. No gallstones or ductal dilation. There was decreased attenuation of the hepatic parenchyma, suggestive of fatty infiltration. Patient was dehdydrated and noted to have sustained an WILFRIDO. It appears he was fluid resuscitated with 2 L of crystalloid fluid. He was then transferred to [facility]. He was noted to be agitated and combative. He had received multiple doses of Ativan, I am told a total of 16 mg. He was also receiving Haldol. Despite this, he had sustained recorded CIWA scores greater than 28, and for this reason he was placed on a Precedex infusion and admitted to the intensive care unit. Most recent CBC from yesterday: WBC count 7.6, hemoglobin 13.9, hematocrit 42, platelets 110. Most recent CMP from yesterday: Sodium 138, potassium 4.4, chloride 108, serum bicarb 19, BUN 18, creatinine 1.13, glucose 94. AST 97, ALT 74, ALP 156, total bilirubin 1. Lipase 11,329 and amylase 1468. Patient is currently lethargic and not making much sense when talking. Unsure of when last drink was. Precedex is infusing at 0.4 mcg/kg/h. He does have bilateral upper extremity soft restraints on, which likely can be discontinued. Blood pressure is noted to be hypertensive, has received a clonidine 0.2 mg patch, which is fallen off and will be replaced. EKG shows normal sinus rhythm without any obvious acute ischemic changes. Patient's pain appears well-managed with current regimen of as needed Dilaudid. He does have some facial grimacing with palpation of the bilateral upper abdomen. Normal saline is infusing at 150 MLS per hour. Currently on room air, in no acute respiratory distress. Afebrile. He has been moved to room 262 in the intensive care unit. Patient was evaluated today on 10/25/2023, remains in the ICU, remains on Precedex at 1 mcg/kg/h. Remains on Cleviprex. Remains on Ativan intermittently and on Haldol. In spite of all of this the patient continues to have episodes of extreme agitation and restlessness. And seems to be delirious. Continues to have a sitter at bedside. His WBC is 7.8 hemoglobin 11.3 basic metabolic profile is normal renal profile is normal however his bicarb is 15, lipase is down to 164 today, it was 1668 yesterday, amylase is down to 112 from 598 yesterday obviously his acute pancreatitis is improving chest x-ray showed no evidence of active disease, minimal pulmonary vascular prominence Reevaluate today on 10/26/2023, patient remains in the ICU, he is on room air, continues to have intermittent episodes of extreme agitation, remains on Precedex at 1.4 mcg/kg/h, remains on Ativan intermittently and Haldol intermittently, nonetheless continues to have episodes of significant agitations. Patient is on the CIWA protocol, he seems to require suctioning of his oropharynx, purulent material is noted, patient does have gag with suctioning and able to protect his airways. But he has a very poor cough reflex. At any rate patient will need to be on oral medications, and I am recommending a nasogastric tube to be placed today, if the patient continues to do poorly may have to consider intubation and mechanical ventilation, however this will be the last resort. In the meantime I believe the patient will remain on the same medications he is presently on and will remain on the CIWA protocol. Needs definitely close monitoring in the ICU. Patient is purulent secretions I recommended empirically starting the patient on Zosyn. WBC count is 7.4 hemoglobin 11.3 basic metabolic profile is normal except for low potassium of 3.2 renal profile is normal lipase is down to 72 amylase is normal Patient was reevaluated today on 10/27/2023, patient received significant amount of sedation yesterday, and continued to be restless and agitated, at 1 point he desaturated, and he was gurgling with secretions, I was made aware of the patient and recommended intubation. Patient was intubated and placed on mechanical ventilation overnight, he is on assist-control rate of 20 tidal volume 400 FiO2 40% and PEEP of 5 ABG showed a pO2 of 131 pCO2 34 pH of 7.30 hence kept on the same ventilator settings. He is on propofol at 65 mcg/kg/min is also 1.9 normal saline at 125 cc/h. Patient is receiving bicarb orally for low bicarb. He is also on Zosyn empirically. Patient is also on enteral feeding. Today I went ahead and placed a right radial arterial line for hemodynamic monitoring and for frequent blood draws. WBC count is 5.9 hemoglobin is 9.4. Basic metabolic profile is normal except for bicarb of 14 patient has a hyperchloremic metabolic none anion gap metabolic acidosis. Chest x-ray showed pulmonary vascular congestion, patient received a dose of Lasix earlier this morning Patient was reevaluated today on 10/28/2023, remains in the ICU, intubated and mechanically ventilated. Patient is on assist-control rate of 20 tidal volume 400 FiO2 40% PEEP of 5 ABG showed a pO2 of 160 pCO2 37 pH of 7.34, I cut down his FiO2 down to 35%. Patient is receiving propofol at 55 mcg/kg/min, he is off norepinephrine, receiving 0.9 normal saline at 125 cc/h. Continues to have intermittent episodes of coffee-ground material in the nasogastric tube, hence nutrition/enteral feeding is presently on hold. Chest x-ray is showing some minimal vascular congestion along with small effusions and atelectasis patient remains on Zosyn empirically, he will receive Lasix 1 dose today 20 mg IV push. Patient continues to have significant amount of secretions he was given a trial off sedation patient was agitated, restless, and again significant amount of secretions were noted in the endotracheal tube, hence will hold on weaning today and extubation. WBC count is 3.8 hemoglobin 8.9. Basic metabolic profile is normal, renal profile is normal Patient was reevaluated today on 10/29/2019, remains in the ICU, intubated and mechanically ventilated. Patient was extremely restless and agitated last night on lower dose of sedation, hence his propofol was increased to as high as 70 mcg/kg/min at present. He is requiring Cleviprex at 10 mg/h for tachycardia. He is on IV fluid 0.9 normal saline at 125 cc/h. Continues to have lots of secretions via the endotracheal tube. Patient is to be restarted back on tube feeding, his positioning of the endotracheal tube and nasogastric tube will be adjusted today. Remains on Zosyn his vent settings are 20/400/35%/5 ABG showed a pO2 of 78 pCO2 34 pH of 7.37 chest x-ray today is noted to show mid and lower lung opacities, slightly increased and small pleural effusions. Patient has atelectasis, and may have a component of fluid overload, will continue intermittent diuresis on this patient, patient did receive 40 mg of Lasix IV push today. Cardiogram on this admission showed good LV function ejection fraction of 55 to 60%, and no evidence of valvular heart disease Progress note dated October 30, 2023. This is a 48-year-old male who was admitted on October 21. He came into the hospital, with alcohol withdrawal syndrome. The patient was intubated on October 25 for respiratory failure. He remains on the ventilator. Settings include volume assist-control, rate 20, tidal volume 400, FiO2 35%, with a PEEP of 5. Blood gases show pO2 of 87, pCO2 of 39, pH is 7.43. The patient is on Cleviprex at 1 mg an hour, propofol at 60 mcg/kg/min, saline at KVO, and saline at 30 cc an hour. The patient continues on Zosyn. The patient's sputum revealed evidence of methicillin sensitive Staph aureus. White count is 5.7, hemoglobin 10.1, hematocrit 31.4, and platelet count was 231,000. Sodium 140, potassium 3.4, chlorides 111, CO2 25, BUN 6, creatinine 0.55. Glucose 103. AST 14. Ammonia level was normal. Chest x-ray shows bilateral interstitial and patchy opacities. Progress note dated October 31, 2023. This is a 48-year-old male who was admitted on October 21. He came into the hospital, with alcohol withdrawal syndrome. The patient was intubated on October 25 for respiratory failure. He remains on the ventilator. Current ventilator s ettings include volume assist-control, rate 20, tidal volume 400, FiO2 35%, PEEP of 5. Blood gases show pO2 of 88, pCO2 46, pH is 7.46. The patient is getting propofol at 70 mcg/kg/min, Cleviprex at 2 mg an hour, and Nepro tube feedings at 19 cc an hour, which is goal. Today, we will add amlodipine at 5 mg an hour for better blood pressure control, and the patient continues on Zosyn, for staphy lococci in the sputum. White count 7.2, hemoglobin 10.2, hematocrit 31, and platelet count was normal. Sodium 140, potassium 3.9, chlorides 106, CO2 31, BUN 8, creatinine 0.52. Glucose is 120. Calcium 8.8. Patient's chest x-ray shows a stable exam with small bilateral pleural effusions, and adjacent atelectasis. Progress note dated November 01, 2023. 48-year-old male who was admitted on October 21. He came to the hospital with alcohol withdrawal syndrome. The patient was intubated on October 25, for respiratory failure. He remains on the ventilator. Settings include volume assist-control, rate 20, tidal volume 400, FiO2 35%, and PEEP of 5. Blood gases show pO2 74, pCO2 45, pH is 7.47. He is on propofol at 70 mcg/kg/min, and Cleviprex at 4 mg an hour. The patient is getting saline at 50 cc an hour. He is also getting tube feedings with Nepro at 27 cc an hour, which is goal. Resid uals were high. We added Reglan 10 mg every 6. In addition, because of failure to wean from mechanical ventilation, the patient will have a surgical consultation for possible tracheostomy and PEG tube placement. Current labs include a white count 6.7, hemoglobin 10, hematocrit 30.9, and a platelet count of 305,000. Sodium 139, potassium 3.9, chlorides 106, CO2 31, BUN 11, creatinine 0.62. Glucose is 109. Calcium is 9.1. Sputum from October 25 was positive for Staphylococcus aureus. Chest x-ray is largely unchanged. Progress note dated November 02, 2023. The patient is seen today in room 262. 48-year-old male admitted on October 21. He came into the hospital with alcohol withdrawal syndrome. He was intubated for respiratory failure on October 26, 2023. He remains on the ventilator. Ve ntilator settings include volume assist-control, rate 20, tidal volume 400, FiO2 35%, and PEEP of 5. Blood gases show pO2 106, pCO2 49, pH is 7.43. The patient is on saline at 20 cc an hour, propofol at 60 mcg/kg/min, and fentanyl 1 mcg/kg/h. He is getting Zosyn IV. The patient is scheduled to have a possible tracheostomy and PEG tube placement today. White count is 8.1, hemoglobin 9.8, hematocrit 29.3, platelet count normal. Sodium 140, potassium 3.9, chlorides 109, CO2 31, BUN 13, creatinine 0.73. Glucose is 96. Calcium 9.1. Sputum Gram stain from 418, showed evidence of Staphylococcus aureus. Chest x-ray shows bilateral lung opacities. Chest x-ray is essentially unchanged. Progress note dated November 03, 2023. The patient is seen today again in room 262. The patient remains on mechanical ventilator. Ventilator settings include volume assist-control, rate 20, tidal volume 400, FiO2 35%, PEEP of 5. Blood gases show pO2 of 83, pCO2 48, pH of 7.41. The patient continues on propofol at 60 mcg/kg/min, fentanyl at 1 mcg/kg/h, and saline at 10 cc an hour. Tube feedings are on hold, for possible PEG tube placement today, November 02. The patient did have a tracheostomy perf ormed on November 01. I am going to add Dilaudid 1 mg every 6 hours, to his regimen, to see if we can get him off the fentanyl drip. White count 10.8, hemoglobin 10.6, macro 33, with a normal platelet count. Sodium 137, potassium 4.2, chlorides 104, CO2 30, BUN 14, creatinine 0.74. Albumin is 2.8. Glucose is 76. Sputum on October 25 was positive for Staphylococcus aureus. Chest x-ray shows the presence of a tracheostomy tube. Bilateral infiltrates, appear improved. Progress note dated November 04, 2023. This is a 48-year-old male seen today in room 62. The patient remains on mechanical ventilator. He is on volume assist-control, rate 20, tidal volume 400, FiO2 50%, and PEEP of 5. Blood gases show pO2 of 72, pCO2 47, pH is 7.41. The patient continues on fentanyl and 0.5 mcg/kg/h, propofol at 40 mcg/kg/min, lactated Ringer's at 20 cc an hour. Current laboratory data includes a white count 12.5, hemoglobin 9.9, hematocrit 30.3, and platelet count 357,000. Sodium 135, potassium 4.3, chlorides 102, CO2 28, BUN 19, creatinine 0.64. Glucose is 86. Phosphorus 4.7, calcium 9, magnesium 1.9. Sputum from October 25 shows evidence of Staphylococcus aureus. Chest x-ray shows bilateral small effusions, with adjacent atelectasis. Progress note dated November 05, 2023. 48-year-old male seen again in room 262. The patient remains on mechanical ventilator. Settings include volume assist-control, rate 20, tidal volume 400, FiO2 50%, PEEP of 5. Blood gases show pO2 112, pCO2 45, pH is 7.46. The patient is getting lactated Ringer's at 20 cc an hour, propofol at 10 mcg/kg/min, and tube feedings with Nepro, at 10 cc an hour, with a goal of 19. The patient is currently not on any antibiotics. We will attempt a daily interruption of sedation, and spontaneous breathing trial today, with a CPAP of 5, and pressure support of 5. White count 14, hemoglobin 10.5, hematocrit 31.8, and platelet count 365,000. Sodium 137, potassium 3.7, chlorides 103, CO2 31, BUN 16, creatinine 0.69. Calcium is 9.2. Magnesium 1.9. Sputum from the was positive for Staphylococcus aureus. The patient has completed his antibiotics. Chest x-ray shows bilateral patchy infiltrates, which could be on the basis of fluid, and or pneumonia. On today's evaluation of 11/06/2023, the patient is being seen for a follow-up. This is a 48-year-old male patient with known history of a complicated al coholism with history of alcoholic pancreatitis and delirium. The patient is post acute hypoxic respiratory failure due to his comorbidities and the patient was difficult to extubate. The patient required mechanical ventilation on 10/26/2023 and ultimately the patient was given a tracheostomy tube on 11/02/2023. He still has an NG tube in place and the patient is going to undergo a PEG tube insertion today. On today's evaluation, the patient is on propofol running at 40 mcg/kg/min. The patient is n.p.o. awaiting PEG tube insertion. There is an NG tube in place. IV fluids are in the form of normal saline at rate of 20 cc an hour. Is on assist-control mode of mechanical ventilation at rate of 20, tidal volume of 400, FiO2 of 50% with a PEEP of 5. His sputum was positive for MSSA and the patient completed a course of IV Zosyn. He has a arterial line in the right upper extremity. Fluid balance is -837 cc over the past 24 hours. Blood gas from today shows a pH of 7.44 with a pCO2 of 47 and pO2 of 94. The white cell count at 9 with a hemoglobin 9.2 and a platelet count of 383. The rest of the electrolytes are all stable. BUN is at 40 with a creatinine of 0.7 and the blood sugar is 93 from this morning. The chest x-ray shows basilar infiltrate and a small effusion otherwise the findings are essentially stable. Tracheostomy tube is in good location. No significant orotracheal secretions at this point in time. No hemodynamic instability. No hypotension. Objective - Vital Signs Vital signs: Vital Signs Temp 99.3 F 11/06/23 08:00 Pulse 103 H 11/06/23 08:00 Resp 20 11/06/23 08:00 BP 110/74 11/06/23 08:00 Pulse Ox 97 11/06/23 08:00 FiO2 50 11/06/23 08:00 Intake & Output 11/05/23 11/06/23 11/06/23 18:59 06:59 18:59 Intake Total 581.836 490.368 150 Output Total 890 1020 310 Balance -308.164 -529.632 -160 Weight 72 kg Intake: IV 120 120 30 Sodium Chloride 0.9% 1, 120 120 30 000 ml @ 10 mls/hr IV . Q24H KELVIN Rx#:[id number] Intake, IV Titration 121.836 260.368 Amount propofoL 1,000 mg In 121.836 260.368 Empty Bag 1 bag @ 15 MCG/ KG/MIN 6.219 mls/hr IV . [id number] KELVIN Rx#:[id number] Tube Feeding 340 80 Other 30 120 Output: Urine 890 1020 310 Other: Voiding Method Indwelling Catheter Indwelling Catheter ABP, PAP, CO, CI - Last Documented Arterial Blood Pressure 108/56 - Exam No acute distress, currently sedated, with a midline tracheostomy tube. Calm and comfortable, sedated on propofol. Head exam was generally normal. There was no scleral icterus or corneal arcus. Mucous membranes were moist. HEENT examination is grossly unremarkable. The patient has a tracheostomy tube in place. Exit site is dry clean and intact. Neck supple. Full range of motion. No adenopathy thyromegaly or neck vein distention. Cardiovascular examination reveals regular rhythm rate. S1-S2 normal. No S3 or S4. No discernible murmur noted. Heart sounds are distant. Lungs reveal scattered bilateral rhonchi. No wheezes or crackles. Breath sounds equal. Abdominal exam revealed normal bowel sounds. The abdomen was soft, non-tender, a nd without masses, organomegaly, or appreciable enlargement of the abdominal aorta.. Extremities are intact. No cyanosis clubbing or edema. Skin is without rash or lesion. Neurologic examination, the patient is sedated, arousable, moving all 4 extremities. - Labs CBC & Chem 7: 11/06/23 04:57 11/06/23 04:57 Labs: Abnormal Lab Results - Last 24 Hours (Table) 11/06/23 11/06/23 11/06/23 Range/Units 04:57 04:57 05:03 RBC 2.94 L (4.30-5.90) m/uL Hgb 9.2 L (13.0-17.5) gm/dL Hct 28.3 L (39.0-53.0) % Lymphocytes # 0.9 L (1.0-4.8) k/uL ABG pCO2 47 H (35-45) mmHg ABG HCO3 32 H (21-25) mmol/L ABG Total CO2 33 H (19-24) mmol/L ABG O2 Saturation 98.1 H (94-97) % Sodium 136 L (137-145) mmol/L Carbon Dioxide 31 H (22-30) mmol/L Microbiology - Last 24 Hours (Table) 11/03/23 04:44 Blood Culture - Preliminary Blood Assessment and Plan Plan: Acute hypoxemic respiratory failure, secondary to acute alcohol withdrawal syndrome, status post intubation and mechanical ventilation, on October 26, 2023. The patient remains intubated on mechanical ventilator. The plan for now is to proceed with a PEG tube insertion and subsequently will assess his readiness to wean off the mechanical ventilator. Chest x-ray showing limited bibasilar pulm infiltrates. Completed his antibiotic course as the patient was found to have MSSA in his sputum. Completed course of IV Zosyn. Currently hemodynamically stable. Prolonged respiratory failure requiring tracheostomy tube insertion and the patient is S/P tracheostomy November 02, 2023. Enteral feeding via PEG tube for nutritional support, awaiting PEG tube insertion Acute alcohol withdrawal with acute alcohol intoxication. Acute alcoholic pancreatitis. Hypertensive urgency. Abdominal pain, secondary to pancreatitis. Acute kidney injury. History of alcoholism. Mild transaminitis. History of coronary artery disease. Current everyday smoker. Plan: Continue ventilator support, no ventilator changes to be done for today other than dropping the FiO2 down to 40% Keep the patient n.p.o. for now PEG tube insertion today Seroquel for delirium and agitation at a dose of 100 mg p.o. twice a day Continue thiamine and folate No need for pressors for now Lovenox 40 mg subcu for DVT prophylaxis Continue bronchodilators Gradually wean off the sedation and evaluate for readiness to wean post PEG tube insertion. Critical care evaluation that was done more than 30 minutes. Time with Patient: Greater than 30
--- NOTE | 2023-11-06 15:09 | P.OP ---
Date of Procedure: 11/06/23 Preoperative Diagnosis: malnutrition Postoperative Diagnosis: malnutrition Procedure(s) Performed: EGD with PEG tube placement Anesthesia: INGRID Surgeon: Clarence Colin Estimated Blood Loss (ml): 5 Pathology: none sent Condition: stable Disposition: PACU Description of Procedure: the patient received IV sedation. Next the gastroscope placed oropharynx passed in the esophagus and stomach. There is no evidence of any outlet obstruction. Stomach was insufflated with air. The light reflux seen the anterior abdominal wall. The abdomen was prepped and draped usual fashion. The skin was incised. And the needles placed and stomach under direct visualization. The needle was snared. And the wires placed through the needle and the wire was snared and brought the oropharynx. The PEG tube was placed over top the wire brought down to the stomach. The PEG tube was secured. At the 3 cm gertrudis. The one-piece bolster was used. Patient tolerated procedure well.
[2023-11-06] MEDS: fentaNYL (PF) 50 MCG/ML 2 ML AMP IVP ONE (16:38)
[2023-11-06] MEDS: VERAPAMIL 80 MG TAB PO SCH (18:18)
[2023-11-07 00:25] LABS: Glucose,Whole Blood 90 mg/dL (70-110)
--- NOTE | 2023-11-07 02:04 | P.PN ---
Subjective Progress Note Date: 11/06/23 48-year-old white male with past medical history significant for hypertension, coronary artery disease, current everyday smoker, and alcohol abuse. He was transferred from [facility] 10/22/2023 for acute pancreatitis. He was noted to be intoxicated on arrival to outside facility, with an alcohol level of 34 mg/dL. He required ICU admission for Precedex infusion. He was also noted to have severely elevated lipase and amylase levels. An abdominal and pelvis CT was performed, which identified peripancreatic inflammatory stranding and fluid consistent with acute pancreatitis. No pseud ocyst, abscess, or pancreatic necrosis. No gallstones or ductal dilation. There was decreased attenuation of the hepatic parenchyma, suggestive of fatty infiltration. Patient was dehdydrated and noted to have sustained an WILFRIDO. It appears he was fluid resuscitated with 2 L of crystalloid fluid. He was then transferred to [facility]. CBC from yesterday: WBC count 7.6, hemoglobin 13.9, hematocrit 42, platelets 110. Most recent CMP from yesterday: Sodium 138, potassium 4.4, chloride 108, serum bicarb 19, BUN 18, creatinine 1.13, glucose 94. AST 97, ALT 74, ALP 156, total bilirubin 1. Lipase 11,329 and amylase 1468. Patient is currently lethargic and not making much sense when talking. Unsure of when last drink was. Precedex is infusing at 0.4 mcg/kg/h. He does have bilateral upper extremity soft restraints on, which likely can be discontinued. Blood pressure is noted to be hypertensive, has received a clonidine 0.2 mg patch, which is fallen off and will be replaced. EKG shows normal sinus rhythm without any obvious acute ischemic changes. Patient's pain appears well-managed with current regimen of as needed Dilaudid. He does have some facial grimacing with palpati on of the bilateral upper abdomen. Normal saline is infusing at 150 MLS per hour. Currently on room air, in no acute respiratory distress. Afebrile. He has been moved to room 262 in the intensive care unit. -- Plan of care was discussed with patient's mother; reports she was told by family noticed that patient is now qualifying for hospice/palliative care -- Patient condition discussed in great detail; assembler recommendations discussed with patient also; no plan to consult hospice or palliative care at this time 11/04/2023 Patient is seen and evaluated in room at bedside; discussed with nursing staff; no family members present in the room Patient remains on mechanical ventilator. He is on volume assist-control Blood gases show pO2 of 72, pCO2 47, pH is 7.41. Lab review shows white count 12.5, hemoglobin 9.9, hematocrit 30.3, and platelet count 357,000. Sodium 135, potassium 4.3, chlorides 102, CO2 28, BUN 19, creatinine 0.64. Glucose is 86. Phosphorus 4.7, calcium 9, magnesium 1.9. Sputum from October 25 shows evidence of Staphylococcus aureus. Chest x-ray shows bilateral small effusions, with adjacent atelectasis. -- Plan for PEG tube placement on 11/06/2023; and has been placed back on tube feeding -Intensive care service planning to wean off the fentanyl, patient has been placed on Dilaudid 1 mg every 4 hours -- Patient is status post tracheostomy; PEG tube placement rescheduled for Monday due to nonavailability of OR 11/05/2023 Patient is seen and evaluated in room at bedside; patient remains on mechanical ventilator. Settings include volume assist-control, rate 20, tidal volume 400, FiO2 50%, PEEP of 5. -- Blood gases show pO2 112, pCO2 45, pH is 7.46. The patient is getting lactated Ringer's at 20 cc an hour, propofol at 10 mcg/kg/min, and tube feedings with Nepro, at 10 cc an hour, with a goal of 19. - White count 14, hemoglobin 10.5, hematocrit 31.8, and platelet count 365,000. Sodium 137, potassium 3.7, chlorides 103, CO2 31, BUN 16, creatinine 0.69. Calcium is 9.2. Magnesium 1.9. Sputum from the was positive for Staphylococcus aureus. The patient has completed his antibiotics. Chest x-ray shows bilateral patchy infiltrates, which could be on the basis of fluid, and or pneumonia. 11/06/2023 Patient is seen and evaluated in follow-up today remains on mechanical ventilation with an FiO2 of 50% currently being dropped down to 40% with a PEEP of 5. Patient is status post tracheostomy and currently awaiting to receive a PEG tube today. Tube feedings are on hold and will be resumed once cleared per surgery after 24 hours. Patient remains on propofol with no plans of weaning trial today. Patient did have an attempted weaning trial yesterday and per nursing staff did not tolerate very well. Pulmonary assembler following with plans on resuming weaning trials tomorrow. Patient is afebrile and has completed a course of antibiotics. Follow-up chest x-ray ordered and pending. Review of systems: Unable to obtain as patient remains on mechanical ventilation and sedated Physical exam: Gen: This is a 48-year-old male who is currently on mechanical ventilation via tracheostomy with an FiO2 of 40% and PEEP is 5, well-developed, ill-appearing HEENT: Head is atraumatic, normocephalic. Pupils equal, round. Sclerae is anicteric. NECK: Supple. No JVD. No lymphadenopathy. No thyromegaly. LUNGS: Diminished breath sounds bilaterally otherwise clear to auscultation. There is some coarse rhonchi noted at the bases. No intercostal retractions. HEART: S1, S2 are muffled ABDOMEN: Soft. Bowel sounds are present. No masses. No tenderness. EXTREMITIES: No pedal edema. No calf tenderness. NEUROLOGICAL: Patient is currently sedated on propofol. Unable to completely assess Assessment: Acute hypoxemic respiratory failure secondary to alcohol withdrawal symptoms and DTs currently intubated and on mechanical ventilator since October 26, 2023, status post tracheostomy Acute alcohol withdrawal symptoms and DTs Uncontrolled hypertension. Improved now. Acute pancreatitis likely alcohol-related Acute kidney injury likely prerenal improved now. Severe alcohol abuse Mild transaminitis improved History of coronary disease Currently everyday smoker GI and DVT prophylaxis Full code Plan: Patient remains on mechanical ventilator. Patient is status post tracheostomy on 11/01/2023. Continued on propofol. Cleviprex is off. Continue to titrate blood pressure medications. Continue with tube feedings which are currently on hold as patient is scheduled to undergo PEG tube placement today. IV fluids to KVO.. Monitor urine output. Antibiotics have been completed and being monitored off antibiotic therapy Daily weaning trials as per critical care team. No plans of weaning today and will attempt to wean again starting tomorrow Will follow-up with repeat chest x-ray as well as labs and replace electrolytes per protocol Will discuss with assembler along with case management/social work regarding possible LTAC Overall prognosis is guarded at this time The impression and plan of care has been dictated by Francia Walters, Nurse Practitioner as directed. Dr. Milton MD I have performed a history and examination and MDM of this patient, discussed the same with the dictator, and agree with the dictator's assessment and plan as written ,documented as a scribe. Based on total visit time, I have performed more than 50% of the visit. Objective - Vital Signs Vital signs: Vital Signs Temp 99.3 F 11/06/23 08:00 Pulse 103 H 11/06/23 08:00 Resp 20 11/06/23 08:00 BP 110/74 11/06/23 08:00 Pulse Ox 97 11/06/23 08:00 FiO2 50 11/06/23 08:00 Intake & Output 11/05/23 11/06/23 11/06/23 18:59 06:59 18:59 Intake Total 581.836 490.368 10 Output Total 890 1020 110 Balance -308.164 -529.632 -100 Weight 72 kg Intake: IV 120 120 10 Sodium Chloride 0.9% 1, 120 120 10 000 ml @ 10 mls/hr IV . Q24H [facility]EL[facility]IN Rx#:[id number] Intake, IV Titration 121.836 260.368 Amount propofoL 1,000 mg In 121.836 260.368 Empty Bag 1 bag @ 15 MCG/ KG/MIN 6.219 mls/hr IV . Q16H5M KELVIN Rx#:[id number] Tube Feeding 340 80 Other 30 Output: Urine 890 1020 110 Other: Voiding Method Indwelling Catheter Indwelling Catheter ABP, PAP, CO, CI - Last Documented Arterial Blood Pressure 108/56 - Labs CBC & Chem 7: 11/06/23 04:57 11/06/23 04:57 Labs: Abnormal Lab Results - Last 24 Hours (Table) 11/06/23 11/06/23 11/06/23 Range/Units 04:57 04:57 05:03 RBC 2.94 L (4.30-5.90) m/uL Hgb 9.2 L (13.0-17.5) gm/dL Hct 28.3 L (39.0-53.0) % Lymphocytes # 0.9 L (1.0-4.8) k/uL ABG pCO2 47 H (35-45) mmHg ABG HCO3 32 H (21-25) mmol/L ABG Total CO2 33 H (19-24) mmol/L ABG O2 Saturation 98.1 H (94-97) % Sodium 136 L (137-145) mmol/L Carbon Dioxide 31 H (22-30) mmol/L Microbiology - Last 24 Hours (Table) 11/03/23 04:44 Blood Culture - Preliminary Blood
[2023-11-07 04:10] LABS: Basophils % (A) 0 %; Eosinophils # (A) 0.2 k/uL (0-0.7); Eosinophils % (A) 2 %; HCT 30.8 % (39.0-53.0); HGB 9.8 gm/dL (13.0-17.5); Lymphocytes # (A) 0.8 k/uL (1.0-4.8); Lymphocytes % (A) 7 %; MCH 30.9 pg (25.0-35.0); MCHC 31.7 g/dL (31.0-37.0); MCV 97.6 fL (80.0-100.0); Mean Platelet Volume 9.2; Monocytes # (A) 0.8 k/uL (0-1.0); Monocytes % (A) 7 %; Neutrophils # (A) 9.6 k/uL (1.3-7.7); Neutrophils % (A) 84 %; Platelet Count 456 k/uL (150-450); RBC 3.16 m/uL (4.30-5.90); RDW 14.2 % (11.5-15.5); WBC 11.5 k/uL (3.8-10.6)
[2023-11-07 04:25] LABS: African American GFR (CKD) >90 (>60 ml/min/1.73 sqM); Anion Gap 9 mmol/L; Blood Urea Nitrogen 14 mg/dL (9-20); Calcium 9.6 mg/dL (8.4-10.2); Carbon Dioxide 26 mmol/L (22-30); Chloride 102 mmol/L (98-107); Glucose 89 mg/dL (74-99); Non-African American GFR(CKD) >90 (>60 ml/min/1.73 sqM); Potassium 3.9 mmol/L (3.5-5.1); Sodium 137 mmol/L (137-145)
[2023-11-07 05:47] LABS: Glucose,Whole Blood 93 mg/dL (70-110)
[2023-11-07 05:48] LABS: ABG Base Excess 3.7 mmol/L; ABG HCO3 27 mmol/L (21-25); ABG Oxygen Saturation 98.4 % (94-97); ABG PCO2 38 mmHg (35-45); ABG PH 7.47 (7.35-7.45); ABG PO2 96 mmHg (83-108); ABG TCO2 29 mmol/L (19-24); Allen Test Performed? Yes
[2023-11-07] MEDS: POTASSIUM BICARBONATE/CIT AC 20 MEQ TABLET.EFF NG-TUBE SCH (06:33)
--- NOTE | 2023-11-07 07:57 | XR ---
EXAMINATION TYPE: XR chest 1V portable DATE OF EXAM: 11/07/2023 COMPARISON: 11/06/2023 HISTORY: Shortness of breath TECHNIQUE: Single frontal view of the chest is obtained. FINDINGS: Tracheostomy tube stable. NG tube is been removed. There appears to be a gastrostomy tube now noted. Diffuse bilateral consolidation with small effusion. No pneumothorax. Heart mildly enlarge d. Degenerative change of the spine. IMPRESSION: Diffuse bilateral infiltrate and small effusion correlate for CHF otherwise consider pneu monia. Findings stable.
--- NOTE | 2023-11-07 11:55 | P.PN ---
Subjective Progress Note Date: 11/07/23 CHIEF COMPLAINT: Abdominal pain HISTORY OF PRESENT ILLNESS: Patient status post PEG tube placement yesterday. Patient is status post tracheostomy placement on 11/02/23. Patient is awake. Patient did have low-grade temps last night. Mildly tachycardic. WBC 11.5 Hgb 9.8 PHYSICAL EXAM: VITAL SIGNS: Reviewed. GENERAL: no acute distress. Neck: trach site clean, dry and intact ABDOMEN: Soft. Nondistended. PEG tube site clean dry and intact ASSESSMENT: 1. Acute hypoxic respiratory failure due to alcohol withdraw syndrome 2. Severe protein calorie malnutrition 3. Acute pancreatitis PLAN: -Dietitian consulted to start tube feedings at 3:00 this afternoon -Continue ICU management -Continue supportive care Physician Babbitter note has been reviewed by physician. Signing provider agrees with the documented findings, assessment, and plan of care. Objective - Vital Signs Vital signs: Vital Signs Temp 99.2 F 11/07/23 09:00 Pulse 109 H 11/07/23 11:29 Resp 23 11/07/23 11:00 BP 131/90 11/07/23 11:00 Pulse Ox 94 L 11/07/23 11:00 FiO2 40 11/07/23 11:06 Intake & Output 11/06/23 11/07/23 11/07/23 18:59 06:59 18:59 Intake Total 458.966 501.694 203.831 Output Total 930 770 495 Balance -471.034 -268.306 -291.169 Weight 72 kg 67.8 kg Intake: IV 120 120 70 Sodium Chloride 0.9% 1, 120 120 70 000 ml @ 10 mls/hr IV . Q24H [facility] Rx#:[id number] Intake, IV Titration 188.966 381.694 73.831 Amount Lactated Ringers 1,000 ml 220 20 @ 20 mls/hr IV .Q24H [facility] Rx#:[id number] propofoL 1,000 mg In 188.966 161.694 53.831 Empty Bag 1 bag @ 15 MCG/ KG/MIN 6.219 mls/hr IV . Q16H5M [facility] Rx#:[id number] Tube Feeding 0 Other 150 60 Output: Urine 930 770 495 Other: Voiding Method Indwelling Catheter Indwelling Catheter # Bowel Movements 0 ABP, PAP, CO, CI - Last Documented Arterial Blood Pressure 110/58 - Labs CBC & Chem 7: 11/07/23 04:00 11/07/23 04:00 Labs: Abnormal Lab Results - Last 24 Hours (Table) 11/07/23 11/07/23 Range/Units 04:00 05:49 WBC 11.5 H (3.8-10.6) k/uL RBC 3.16 L (4.30-5.90) m/uL Hgb 9.8 L (13.0-17.5) gm/dL Hct 30.8 L (39.0-53.0) % Plt Count 456 H (150-450) k/uL Neutrophils # 9.6 H (1.3-7.7) k/uL Lymphocytes # 0.8 L (1.0-4.8) k/uL ABG pH 7.47 H (7.35-7.45) ABG HCO3 27 H (21-25) mmol/L ABG Total CO2 29 H (19-24) mmol/L ABG O2 Saturation 98.4 H (94-97) % Microbiology - Last 24 Hours (Table) 11/03/23 04:44 Blood Culture - Preliminary Blood
--- NOTE | 2023-11-07 13:33 | P.PN ---
Subjective Progress Note Date: 11/07/23 Patient is a 48-year-old white male with past medical history significant for hypertension, coronary artery disease, current everyday smoker, and alcohol abuse. He was transferred from [facility] 10/22/2023 for acute pancreatitis. He was noted to be intoxicated on arrival to outside facility, with an alcohol level of 34 mg/dL, while at our facility developed impending acute alcohol withdrawal delirium tremens. He required ICU admission for Precedex infusion. Patient is currently lethargic and not a very good historian. After reviewing the medical records from the outside facility, it appears he presented with abdominal pain. He was also noted to have severely elevated lipase and amylase levels. An abdominal and pelvis CT was performed, which identified peripancreatic inflammatory stranding and fluid consistent with acute pancreatitis. No pseudocyst, abscess, or pancreatic necrosis. No gallstones or ductal dilation. There was decreased attenuation of the hepatic parenchyma, suggestive of fatty infiltration. Patient was dehdydrated and noted to have sustained an WILFRIDO. It appears he was fluid resuscitated with 2 L of crystalloid fluid. He was then transferred to [facility]. He was noted to be agitated and combative. He had received multiple doses of Ativan, I am told a total of 16 mg. He was also receiving Haldol. Despite this, he had sustained recorded CIWA scores greater than 28, and for this reason he was placed on a Precedex infusion and admitted to the intensive care unit. Most recent CBC from yesterday: WBC count 7.6, hemoglobin 13.9, hematocrit 42, platelets 110. Most recent CMP from yesterday: Sodium 138, potassium 4.4, chloride 108, serum bicarb 19, BUN 18, creatinine 1.13, glucose 94. AST 97, ALT 74, ALP 156, total bilirubin 1. Lipase 11,329 and amylase 1468. Patient is currently lethargic and not making much sense when talking. Unsure of when last drink was. Precedex is infusing at 0.4 mcg/kg/h. He does have bilateral upper extremity soft restraints on, which likely can be discontinued. Blood pressure is noted to be hypertensive, has received a clonidine 0.2 mg patch, which is fallen off and will be replaced. EKG shows normal sinus rhythm without any obvious acute ischemic changes. Patient's pain appears well-managed with current regimen of as needed Dilaudid. He does have some facial grimacing with palpation of the bilateral upper abdomen. Normal saline is infusing at 150 MLS per hour. Currently on room air, in no acute respiratory distress. Afebrile. He has been moved to room 262 in the intensive care unit. Patient was evaluated today on 10/25/2023, remains in the ICU, remains on Precedex at 1 mcg/kg/h. Remains on Cleviprex. Remains on Ativan intermittently and on Haldol. In spite of all of this the patient continues to have episodes of extreme agitation and restlessness. And seems to be delirious. Continues to have a sitter at bedside. His WBC is 7.8 hemoglobin 11.3 basic metabolic profile is normal renal profile is normal however his bicarb is 15, lipase is down to 164 today, it was 1668 yesterday, amylase is down to 112 from 598 yesterday obviously his acute pancreatitis is improving chest x-ray showed no evidence of active disease, minimal pulmonary vascular prominence Reevaluate today on 10/26/2023, patient remains in the ICU, he is on room air, continues to have intermittent episodes of extreme agitation, remains on Precedex at 1.4 mcg/kg/h, remains on Ativan intermittently and Haldol intermittently, nonetheless continues to have episodes of significant agitations. Patient is on the CIWA protocol, he seems to require suctioning of his oropharynx, purulent material is noted, patient does have gag with suctioning and able to protect his airways. But he has a very poor cough reflex. At any rate patient will need to be on oral medications, and I am recommending a nasogastric tube to be placed today, if the patient continues to do poorly may have to consider intubation and mechanical ventilation, however this will be the last resort. In the meantime I believe the patient will remain on the same medications he is presently on and will remain on the CIWA protocol. Needs definitely close monitoring in the ICU. Patient is purulent secretions I recommended empirically starting the patient on Zosyn. WBC count is 7.4 hemoglobin 11.3 basic metabolic profile is normal except for low potassium of 3.2 renal profile is normal lipase is down to 72 amylase is normal Patient was reevaluated today on 10/27/2023, patient received significant amount of sedation yesterday, and continued to be restless and agitated, at 1 point he desaturated, and he was gurgling with secretions, I was made aware of the patient and recommended intubation. Patient was intubated and placed on mechanical ventilation overnight, he is on assist-control rate of 20 tidal volume 400 FiO2 40% and PEEP of 5 ABG showed a pO2 of 131 pCO2 34 pH of 7.30 hence kept on the same ventilator settings. He is on propofol at 65 mcg/kg/min is also 1.9 normal saline at 125 cc/h. Patient is receiving bicarb orally for low bicarb. He is also on Zosyn empirically. Patient is also on enteral feeding. Today I went ahead and placed a right radial arterial line for hemodynamic monitoring and for frequent blood draws. WBC count is 5.9 hemoglobin is 9.4. Basic metabolic profile is normal except for bicarb of 14 patient has a hyperchloremic metabolic none anion gap metabolic acidosis. Chest x-ray showed pulmonary vascular congestion, patient received a dose of Lasix earlier this morning Patient was reevaluated today on 10/28/2023, remains in the ICU, intubated and mechanically ventilated. Patient is on assist-control rate of 20 tidal volume 400 FiO2 40% PEEP of 5 ABG showed a pO2 of 160 pCO2 37 pH of 7.34, I cut down his FiO2 down to 35%. Patient is receiving propofol at 55 mcg/kg/min, he is off norepinephrine, receiving 0.9 normal saline at 125 cc/h. Continues to have intermittent episodes of coffee-ground material in the nasogastric tube, hence nutrition/enteral feeding is presently on hold. Chest x-ray is showing some minimal vascular congestion along with small effusions and atelectasis patient remains on Zosyn empirically, he will receive Lasix 1 dose today 20 mg IV push. Patient continues to have significant amount of secretions he was given a trial off sedation patient was agitated, restless, and again significant amount of secretions were noted in the endotracheal tube, hence will hold on weaning today and extubation. WBC count is 3.8 hemoglobin 8.9. Basic metabolic profile is normal, renal profile is normal Patient was reevaluated today on 10/29/2019, remains in the ICU, intubated and mechanically ventilated. Patient was extremely restless and agitated last night on lower dose of sedation, hence his propofol was increased to as high as 70 mcg/kg/min at present. He is requiring Cleviprex at 10 mg/h for tachycardia. He is on IV fluid 0.9 normal saline at 125 cc/h. Continues to have lots of secretions via the endotracheal tube. Patient is to be restarted back on tube feeding, his positioning of the endotracheal tube and nasogastric tube will be adjusted today. Remains on Zosyn his vent settings are 20/400/35%/5 ABG showed a pO2 of 78 pCO2 34 pH of 7.37 chest x-ray today is noted to show mid and lower lung opacities, slightly increased and small pleural effusions. Patient has atelectasis, and may have a component of fluid overload, will continue intermittent diuresis on this patient, patient did receive 40 mg of Lasix IV push today. Cardiogram on this admission showed good LV function ejection fraction of 55 to 60%, and no evidence of valvular heart disease Progress note dated October 30, 2023. This is a 48-year-old male who was admitted on October 21. He came into the hospital, with alcohol withdrawal syndrome. The patient was intubated on October 25 for respiratory failure. He remains on the ventilator. Settings include volume assist-control, rate 20, tidal volume 400, FiO2 35%, with a PEEP of 5. Blood gases show pO2 of 87, pCO2 of 39, pH is 7.43. The patient is on Cleviprex at 1 mg an hour, propofol at 60 mcg/kg/min, saline at KVO, and saline at 30 cc an hour. The patient continues on Zosyn. The patient's sputum revealed evidence of methicillin sensitive Staph aureus. White count is 5.7, hemoglobin 10.1, hematocrit 31.4, and platelet count was 231,000. Sodium 140, potassium 3.4, chlorides 111, CO2 25, BUN 6, creatinine 0.55. Glucose 103. AST 14. Ammonia level was normal. Chest x-ray shows bilateral interstitial and patchy opacities. Progress note dated October 31, 2023. This is a 48-year-old male who was admitted on October 21. He came into the hospital, with alcohol withdrawal syndrome. The patient was intubated on October 25 for respiratory failure. He remains on the ventilator. Current ventilator s ettings include volume assist-control, rate 20, tidal volume 400, FiO2 35%, PEEP of 5. Blood gases show pO2 of 88, pCO2 46, pH is 7.46. The patient is getting propofol at 70 mcg/kg/min, Cleviprex at 2 mg an hour, and Nepro tube feedings at 19 cc an hour, which is goal. Today, we will add amlodipine at 5 mg an hour for better blood pressure control, and the patient continues on Zosyn, for staphy lococci in the sputum. White count 7.2, hemoglobin 10.2, hematocrit 31, and platelet count was normal. Sodium 140, potassium 3.9, chlorides 106, CO2 31, BUN 8, creatinine 0.52. Glucose is 120. Calcium 8.8. Patient's chest x-ray shows a stable exam with small bilateral pleural effusions, and adjacent atelectasis. Progress note dated November 01, 2023. 48-year-old male who was admitted on October 21. He came to the hospital with alcohol withdrawal syndrome. The patient was intubated on October 25, for respiratory failure. He remains on the ventilator. Settings include volume assist-control, rate 20, tidal volume 400, FiO2 35%, and PEEP of 5. Blood gases show pO2 74, pCO2 45, pH is 7.47. He is on propofol at 70 mcg/kg/min, and Cleviprex at 4 mg an hour. The patient is getting saline at 50 cc an hour. He is also getting tube feedings with Nepro at 27 cc an hour, which is goal. Resid uals were high. We added Reglan 10 mg every 6. In addition, because of failure to wean from mechanical ventilation, the patient will have a surgical consultation for possible tracheostomy and PEG tube placement. Current labs include a white count 6.7, hemoglobin 10, hematocrit 30.9, and a platelet count of 305,000. Sodium 139, potassium 3.9, chlorides 106, CO2 31, BUN 11, creatinine 0.62. Glucose is 109. Calcium is 9.1. Sputum from October 25 was positive for Staphylococcus aureus. Chest x-ray is largely unchanged. Progress note dated November 02, 2023. The patient is seen today in room 262. 48-year-old male admitted on October 21. He came into the hospital with alcohol withdrawal syndrome. He was intubated for respiratory failure on October 26, 2023. He remains on the ventilator. Ve ntilator settings include volume assist-control, rate 20, tidal volume 400, FiO2 35%, and PEEP of 5. Blood gases show pO2 106, pCO2 49, pH is 7.43. The patient is on saline at 20 cc an hour, propofol at 60 mcg/kg/min, and fentanyl 1 mcg/kg/h. He is getting Zosyn IV. The patient is scheduled to have a possible tracheostomy and PEG tube placement today. White count is 8.1, hemoglobin 9.8, hematocrit 29.3, platelet count normal. Sodium 140, potassium 3.9, chlorides 109, CO2 31, BUN 13, creatinine 0.73. Glucose is 96. Calcium 9.1. Sputum Gram stain from 418, showed evidence of Staphylococcus aureus. Chest x-ray shows bilateral lung opacities. Chest x-ray is essentially unchanged. Progress note dated November 03, 2023. The patient is seen today again in room 262. The patient remains on mechanical ventilator. Ventilator settings include volume assist-control, rate 20, tidal volume 400, FiO2 35%, PEEP of 5. Blood gases show pO2 of 83, pCO2 48, pH of 7.41. The patient continues on propofol at 60 mcg/kg/min, fentanyl at 1 mcg/kg/h, and saline at 10 cc an hour. Tube feedings are on hold, for possible PEG tube placement today, November 02. The patient did have a tracheostomy perf ormed on November 01. I am going to add Dilaudid 1 mg every 6 hours, to his regimen, to see if we can get him off the fentanyl drip. White count 10.8, hemoglobin 10.6, macro 33, with a normal platelet count. Sodium 137, potassium 4.2, chlorides 104, CO2 30, BUN 14, creatinine 0.74. Albumin is 2.8. Glucose is 76. Sputum on October 25 was positive for Staphylococcus aureus. Chest x-ray shows the presence of a tracheostomy tube. Bilateral infiltrates, appear improved. Progress note dated November 04, 2023. This is a 48-year-old male seen today in room 62. The patient remains on mechanical ventilator. He is on volume assist-control, rate 20, tidal volume 400, FiO2 50%, and PEEP of 5. Blood gases show pO2 of 72, pCO2 47, pH is 7.41. The patient continues on fentanyl and 0.5 mcg/kg/h, propofol at 40 mcg/kg/min, lactated Ringer's at 20 cc an hour. Current laboratory data includes a white count 12.5, hemoglobin 9.9, hematocrit 30.3, and platelet count 357,000. Sodium 135, potassium 4.3, chlorides 102, CO2 28, BUN 19, creatinine 0.64. Glucose is 86. Phosphorus 4.7, calcium 9, magnesium 1.9. Sputum from October 25 shows evidence of Staphylococcus aureus. Chest x-ray shows bilateral small effusions, with adjacent atelectasis. Progress note dated November 05, 2023. 48-year-old male seen again in room 262. The patient remains on mechanical ventilator. Settings include volume assist-control, rate 20, tidal volume 400, FiO2 50%, PEEP of 5. Blood gases show pO2 112, pCO2 45, pH is 7.46. The patient is getting lactated Ringer's at 20 cc an hour, propofol at 10 mcg/kg/min, and tube feedings with Nepro, at 10 cc an hour, with a goal of 19. The patient is currently not on any antibiotics. We will attempt a daily interruption of sedation, and spontaneous breathing trial today, with a CPAP of 5, and pressure support of 5. White count 14, hemoglobin 10.5, hematocrit 31.8, and platelet count 365,000. Sodium 137, potassium 3.7, chlorides 103, CO2 31, BUN 16, creatinine 0.69. Calcium is 9.2. Magnesium 1.9. Sputum from the was positive for Staphylococcus aureus. The patient has completed his antibiotics. Chest x-ray shows bilateral patchy infiltrates, which could be on the basis of fluid, and or pneumonia. On today's evaluation of 11/06/2023, the patient is being seen for a follow-up. This is a 48-year-old male patient with known history of a complicated al coholism with history of alcoholic pancreatitis and delirium. The patient is post acute hypoxic respiratory failure due to his comorbidities and the patient was difficult to extubate. The patient required mechanical ventilation on 10/26/2023 and ultimately the patient was given a tracheostomy tube on 11/02/2023. He still has an NG tube in place and the patient is going to undergo a PEG tube insertion today. On today's evaluation, the patient is on propofol running at 40 mcg/kg/min. The patient is n.p.o. awaiting PEG tube insertion. There is an NG tube in place. IV fluids are in the form of normal saline at rate of 20 cc an hour. Is on assist-control mode of mechanical ventilation at rate of 20, tidal volume of 400, FiO2 of 50% with a PEEP of 5. His sputum was positive for MSSA and the patient completed a course of IV Zosyn. He has a arterial line in the right upper extremity. Fluid balance is -837 cc over the past 24 hours. Blood gas from today shows a pH of 7.44 with a pCO2 of 47 and pO2 of 94. The white cell count at 9 with a hemoglobin 9.2 and a platelet count of 383. The rest of the electrolytes are all stable. BUN is at 40 with a creatinine of 0.7 and the blood sugar is 93 from this morning. The chest x-ray shows basilar infiltrate and a small effusion otherwise the findings are essentially stable. Tracheostomy tube is in good location. No significant orotracheal secretions at this point in time. No hemodynamic instability. No hypotension. On today's evaluation of 11/07/2023, I am seeing the patient in follow-up in the intensive care unit. The patient remains intubated on the mechanical ventilator. She is currently on propofol running at 10 mcg/kg/min. The patient is on assist-control mode of mechanical ventilation at the rate of 20, tidal volume of 400, FiO2 40% with a PEEP of 5. The blood gas shows a pH of 7.47 with a pCO2 of 38 and a pO2 of 96. The patient is arousable and he is calm and comfortable. Following simple commands and moving all 4 extremities without any limitation. Chest x-ray shows some infiltration in lung bases and small bilateral pleural effusions. Nevertheless, the patient has demonstrated adequate oxygenation. As mentioned, the patient had prolonged respiratory failure and the patient has a #[address] tracheostomy tube in place. PEG tube insertion was not successful yesterday without any issues and the patient is going to be started on enteral feeding for nutritional support. Hemoglobin is at 9.8 with a platelet count of 456. BUN is 14 with a creatinine of 0.7 and a sodium levels at 137. The patient is currently on no antibiotics. The patient has completed his course of IV Zosyn. The patient is on bronchodilators [id number]. The patient has metoprolol for some sinus tachycardia and blo od pressure control and a dose of 50 mg p.o. twice daily. He is also taking Seroquel 100 mg twice a day. He is on Isoptin 80 mg p.o. 3 times daily. Surgical wound site over the abdomen is dry clean and intact. Objective - Vital Signs Vital signs: Vital Signs Temp 99.2 F 11/07/23 09:00 Pulse 124 H 11/07/23 10:00 Resp 20 11/07/23 10:00 BP 130/101 11/07/23 10:00 Pulse Ox 96 11/07/23 10:00 FiO2 40 11/07/23 09:22 Intake & Output 11/06/23 11/07/23 11/07/23 18:59 06:59 18:59 Intake Total 458.966 501.694 199.615 Output Total 930 770 495 Balance -471.034 -268.306 -295.385 Weight 72 kg 67.8 kg Intake: IV 120 120 70 Sodium Chloride 0.9% 1, 120 120 70 000 ml @ 10 mls/hr IV . Q24H [facility] Rx#:[id number] Intake, IV Titration 188.966 381.694 69.615 Amount Lactated Ringers 1,000 ml 220 20 @ 20 mls/hr IV .Q24H [facility] Rx#:[id number] propofoL 1,000 mg In 188.966 161.694 49.615 Empty Bag 1 bag @ 15 MCG/ KG/MIN 6.219 mls/hr IV . Q16H5M [facility] Rx#:[id number] Tube Feeding 0 Other 150 60 Output: Urine 930 770 495 Other: Voiding Method Indwelling Catheter Indwelling Catheter # Bowel Movements 0 ABP, PAP, CO, CI - Last Documented Arterial Blood Pressure 149/85 - Exam No acute distress, currently sedated, with a midline tracheostomy tube. Calm and comfortable, sedated on propofol. The patient is arousable and awake and following simple commands currently on low-dose of propofol. Head exam was generally normal. There was no scleral icterus or corneal arcus. Mucous membranes were moist. HEENT examination is grossly unremarkable. The patient has a tracheostomy tube in place. Exit site is dry clean and intact. Neck supple. Full range of motion. No adenopathy thyromegaly or neck vein distention. Cardiovascular examination reveals regular rhythm rate. S1-S2 normal. No S3 or S4. No discernible murmur noted. Heart sounds are distant. Lungs reveal scattered bilateral rhonchi. No wheezes or crackles. Breath sounds equal. Abdominal exam revealed normal bowel sounds. The abdomen was soft, non-tender, and without masses, organomegaly, or appreciable enlargement of the abdominal aorta.. The PEG tube site is dry clean and intact. Extremities are intact. No cyanosis clubbing or edema. Skin is without rash or lesion. Neurologic examination, the patient is sedated, arousable, moving all 4 extremities. There is generalized global weakness in all 4 extremities related to prolonged respiratory failure and mechanical ventilation. - Labs CBC & Chem 7: 11/07/23 04:00 11/07/23 04:00 Labs: Abnormal Lab Results - Last 24 Hours (Table) 11/07/23 11/07/23 Range/Units 04:00 05:49 WBC 11.5 H (3.8-10.6) k/uL RBC 3.16 L (4.30-5.90) m/uL Hgb 9.8 L (13.0-17.5) gm/dL Hct 30.8 L (39.0-53.0) % Plt Count 456 H (150-450) k/uL Neutrophils # 9.6 H (1.3-7.7) k/uL Lymphocytes # 0.8 L (1.0-4.8) k/uL ABG pH 7.47 H (7.35-7.45) ABG HCO3 27 H (21-25) mmol/L ABG Total CO2 29 H (19-24) mmol/L ABG O2 Saturation 98.4 H (94-97) % Microbiology - Last 24 Hours (Table) 11/03/23 04:44 Blood Culture - Preliminary Blood Assessment and Plan Plan: Acute hypoxemic respiratory failure, secondary to acute alcohol withdrawal syndrome, status post intubation and mechanical ventilation, on October 26, 2023. The patient remains intubated on mechanical ventilator. The plan for now is to proceed with a PEG tube insertion and subsequently will assess his readiness to wean off the mechanical ventilator. Chest x-ray showing limited bibasilar pulm infiltrates. Completed his antibiotic course as the patient was found to have MSSA in his sputum. Completed course of IV Zosyn. Currently hemodynamically stable. The patient is currently on the mechanical ventilator, chest x-ray was noted and the blood gas were noted. Overall condition is stable. The patient will be switched to a pressure support mode of mechanical ventilation Prolonged respiratory failure requiring tracheostomy tube insertion and the patient is S/P tracheostomy November 02, 2023. Enteral feeding via PEG tube and a tube was inserted yesterday without any complications. Acute alcohol withdrawal with acute alcohol intoxication. No active signs of encephalopathy or delirium at this point in time and the patient is currently on Seroquel 100 mg p.o. twice a day Acute alcoholic pancreatitis. Hypertensive urgency. Abdominal pain, secondary to pancreatitis. Acute kidney injury. History of alcoholism. Mild transaminitis. History of coronary artery disease. Current everyday smoker. Sinus tachycardia Plan: Continue ventilator support, and switch this patient to pressure support mode of mechanical ventilation with a pressure support of 7 and a PEEP of 5 Initiate enteral feeding for nutritional support PEG tube insertion was completed yesterday and the patient is postop day #1 Seroquel for delirium and agitation at a dose of 100 mg p.o. twice a day Continue thiamine and folate No need for pressors for now Continue Isoptin and increase the metoprolol to 50 mg p.o. 3 times daily Aggressive physical therapy and passive range of motion Lovenox 40 mg subcu for DVT prophylaxis Continue bronchodilators Gradually wean off the sedation and evaluate for readiness to wean post PEG tube insertion. Critical care evaluation that was done more than 30 minutes. Time with Patient: Greater than 30
[2023-11-07] MEDS: METOPROLOL TARTRATE 50 MG TAB PO SCH (15:50)
[2023-11-07 18:07] LABS: Glucose,Whole Blood 93 mg/dL (70-110)
[2023-11-07] MEDS: PIPERACILLIN-TAZOBACTAM 3.375 GM in SODIUM CHLORIDE 0.9% 100 ML IVPB SCH (21:41)
[2023-11-07 22:08] LABS: Amorphous Sediment,Urine Few /hpf; Appearance,Urine Cloudy (Clear); Bacteria,Urine Many /hpf; Bilirubin,Urine Negative (Negative); Blood,Urine Negative (Negative); Color,Urine Yellow; Glucose,Urine (UA) Negative (Negative); Hyaline Casts,Urine 12 /lpf (0-2); Ketones,Urine 1+ (Negative); Leukocyte Esterase,Urine Moderate (Negative); Mucus,Urine Many /hpf; Nitrite,Urine Positive (Negative); PH, Urine 5.5 (5.0-8.0); Protein,Urine Trace (Negative); RBC,Urine 1 /hpf (0-5); Specific Gravity,Urine 1.024 (1.001-1.035); Squamous Epithelial Cell,Urine <1 /hpf (0-4); Urobilinogen,Urine <2.0 mg/dL (<2.0); WBC,Urine 23 /hpf (0-5)
[2023-11-08 02:23] LABS: Glucose,Whole Blood 114 mg/dL (70-110)
[2023-11-08 04:37] LABS: Basophils # (A) 0.1 k/uL (0-0.2); Basophils % (A) 1 %; Eosinophils # (A) 0.2 k/uL (0-0.7); Eosinophils % (A) 2 %; HCT 30.2 % (39.0-53.0); HGB 9.7 gm/dL (13.0-17.5); Lymphocytes # (A) 0.7 k/uL (1.0-4.8); Lymphocytes % (A) 6 %; MCH 31.1 pg (25.0-35.0); MCHC 32.2 g/dL (31.0-37.0); MCV 96.8 fL (80.0-100.0); Mean Platelet Volume 8.5; Monocytes # (A) 0.8 k/uL (0-1.0); Monocytes % (A) 7 %; Neutrophils # (A) 9.7 k/uL (1.3-7.7); Neutrophils % (A) 83 %; Platelet Count 424 k/uL (150-450); RBC 3.12 m/uL (4.30-5.90); RDW 14.1 % (11.5-15.5); WBC 11.6 k/uL (3.8-10.6)
[2023-11-08 04:49] LABS: African American GFR (CKD) >90 (>60 ml/min/1.73 sqM); Anion Gap 4 mmol/L; Blood Urea Nitrogen 16 mg/dL (9-20); Calcium 9.8 mg/dL (8.4-10.2); Carbon Dioxide 31 mmol/L (22-30); Chloride 101 mmol/L (98-107); Glucose 128 mg/dL (74-99); Non-African American GFR(CKD) >90 (>60 ml/min/1.73 sqM); Potassium 3.9 mmol/L (3.5-5.1); Sodium 136 mmol/L (137-145)
--- NOTE | 2023-11-08 05:33 | P.PN ---
Subjective Progress Note Date: 11/07/23 48-year-old white male with past medical history significant for hypertension, coronary artery disease, current everyday smoker, and alcohol abuse. He was transferred from [facility] 10/22/2023 for acute pancreatitis. He was noted to be intoxicated on arrival to outside facility, with an alcohol level of 34 mg/dL. He required ICU admission for Precedex infusion. He was also noted to have severely elevated lipase and amylase levels. An abdominal and pelvis CT was performed, which identified peripancreatic inflammatory stranding and fluid consistent with acute pancreatitis. No pseud ocyst, abscess, or pancreatic necrosis. No gallstones or ductal dilation. There was decreased attenuation of the hepatic parenchyma, suggestive of fatty infiltration. Patient was dehdydrated and noted to have sustained an WILFRIDO. It appears he was fluid resuscitated with 2 L of crystalloid fluid. He was then transferred to [facility]. CBC from yesterday: WBC count 7.6, hemoglobin 13.9, hematocrit 42, platelets 110. Most recent CMP from yesterday: Sodium 138, potassium 4.4, chloride 108, serum bicarb 19, BUN 18, creatinine 1.13, glucose 94. AST 97, ALT 74, ALP 156, total bilirubin 1. Lipase 11,329 and amylase 1468. Patient is currently lethargic and not making much sense when talking. Unsure of when last drink was. Precedex is infusing at 0.4 mcg/kg/h. He does have bilateral upper extremity soft restraints on, which likely can be discontinued. Blood pressure is noted to be hypertensive, has received a clonidine 0.2 mg patch, which is fallen off and will be replaced. EKG shows normal sinus rhythm without any obvious acute ischemic changes. Patient's pain appears well-managed with current regimen of as needed Dilaudid. He does have some facial grimacing with palpati on of the bilateral upper abdomen. Normal saline is infusing at 150 MLS per hour. Currently on room air, in no acute respiratory distress. Afebrile. He has been moved to room 262 in the intensive care unit. -- Plan of care was discussed with patient's mother; reports she was told by family noticed that patient is now qualifying for hospice/palliative care -- Patient condition discussed in great detail; school bus attendant recommendations discussed with patient also; no plan to consult hospice or palliative care at this time 11/04/2023 Patient is seen and evaluated in room at bedside; discussed with nursing staff; no family members present in the room Patient remains on mechanical ventilator. He is on volume assist-control Blood gases show pO2 of 72, pCO2 47, pH is 7.41. Lab review shows white count 12.5, hemoglobin 9.9, hematocrit 30.3, and platelet count 357,000. Sodium 135, potassium 4.3, chlorides 102, CO2 28, BUN 19, creatinine 0.64. Glucose is 86. Phosphorus 4.7, calcium 9, magnesium 1.9. Sputum from October 25 shows evidence of Staphylococcus aureus. Chest x-ray shows bilateral small effusions, with adjacent atelectasis. -- Plan for PEG tube placement on 11/06/2023; and has been placed back on tube feeding -Intensive care service planning to wean off the fentanyl, patient has been placed on Dilaudid 1 mg every 4 hours -- Patient is status post tracheostomy; PEG tube placement rescheduled for Monday due to nonavailability of OR 11/05/2023 Patient is seen and evaluated in room at bedside; patient remains on mechanical ventilator. Settings include volume assist-control, rate 20, tidal volume 400, FiO2 50%, PEEP of 5. -- Blood gases show pO2 112, pCO2 45, pH is 7.46. The patient is getting lactated Ringer's at 20 cc an hour, propofol at 10 mcg/kg/min, and tube feedings with Nepro, at 10 cc an hour, with a goal of 19. - White count 14, hemoglobin 10.5, hematocrit 31.8, and platelet count 365,000. Sodium 137, potassium 3.7, chlorides 103, CO2 31, BUN 16, creatinine 0.69. Calcium is 9.2. Magnesium 1.9. Sputum from the was positive for Staphylococcus aureus. The patient has completed his antibiotics. Chest x-ray shows bilateral patchy infiltrates, which could be on the basis of fluid, and or pneumonia. 11/06/2023 Patient is seen and evaluated in follow-up today remains on mechanical ventilation with an FiO2 of 50% currently being dropped down to 40% with a PEEP of 5. Patient is status post tracheostomy and currently awaiting to receive a PEG tube today. Tube feedings are on hold and will be resumed once cleared per surgery after 24 hours. Patient remains on propofol with no plans of weaning trial today. Patient did have an attempted weaning trial yesterday and per nursing staff did not tolerate very well. Pulmonary school bus attendant following with plans on resuming weaning trials tomorrow. Patient is afebrile and has completed a course of antibiotics. Follow-up chest x-ray ordered and pending. 11/07/2023 Patient is seen and evaluated in follow-up status post continued on tracheostomy with an FiO2 of 40% PEEP is 5 as well as PEG tube yesterday. Tube feedings to initiate per surgery today and will monitor for tolerance. Chest x-ray today shows diffuse bilateral infiltrates and small effusion correlate for CHF otherwise findings stable from previous. Blood pressure on the higher side and heart rates into the 1 teens, maintained on verapamil and metoprolol. Patient having low-grade temps and white count is mildly elevated we will repeat cultures including obtaining a sputum culture and urinalysis and initiate Zosyn. Procalcitonin ordered as well. Continue aspiration precautions. Patient is awake and following some commands. Patient is mumbling and attempting to talk. Patient denies pain at this time. Review of systems: Unable to completely obtain as patient remains on mild sedation Physical exam: Gen: This is a 48-year-old male who is currently on mechanical ventilation via tracheostomy with an FiO2 of 40% and PEEP is 5, well-developed, ill-appearing HEENT: Head is atraumatic, normocephalic. Pupils equal, round. Sclerae is anicteric. NECK: Supple. No JVD. No lymphadenopathy. No thyromegaly. LUNGS: Diminished breath sounds bilaterally otherwise clear to auscultation. There is some coarse rhonchi noted at the bases. No intercostal retractions. HEART: S1, S2 are muffled ABDOMEN: Soft. Bowel sounds are present. No masses. No tenderness. EXTREMITIES: No pedal edema. No calf tenderness. NEUROLOGICAL: Patient is currently sedated on propofol. Unable to completely assess Assessment: Acute hypoxemic respiratory failure secondary to alcohol withdrawal symptoms and DTs currently intubated and on mechanical ventilator since October 26, 2023, status post tracheostomy Leukocytosis with low-grade temps, concern for pneumonia, will initiate blood cultures, urinalysis, empiric antibiotics and procalcitonin Acute alcohol withdrawal symptoms and DTs Uncontrolled hypertension. Improved now. Acute pancreatitis likely alcohol-related Acute kidney injury likely prerenal improved now. Severe alcohol abuse Mild transaminitis improved History of coronary disease Currently everyday smoker GI and DVT prophylaxis Full code Plan: Patient remains on mechanical ventilator. Patient is status post tracheostomy on 11/01/2023. Currently working on weaning and is awake following commands. Attempting to talk although raspy and soft. Patient does continue with tr acheostomy on pressure support currently and undergoing weaning trials. Cleviprex is off. Continue to titrate blood pressure medications. Patient had a few low-grade temps along with the elevated white count above 10 with concerns of pneumonia as noted on the chest x-ray. Will initiate Zosyn, obtain repeat blood cultures and sputum culture, urinalysis, and procalcitonin. Continue with tube feedings once cleared by surgery. Patient is status post PEG tube yesterday IV fluids to KVO.. Monitor urine output. Daily weaning trials as per critical care team. Will follow-up with repeat chest x-ray as well as labs and replace electrolytes per protocol Will discuss with school bus attendant along with case management/social work regarding possible LTAC Mother at the bedside with questions and concerns that were answered to the best of our ability Overall prognosis is guarded at this time The impression and plan of care has been dictated by Francia Walters, Nurse Practitioner as directed. Dr. Milton MD I have performed a history and examination and MDM of this patient, discussed the same with the dictator, and agree with the dictator's assessment and plan as written ,documented as a scribe. Based on total visit time, I have performed more than 50% of the visit. Objective - Vital Signs Vital signs: Vital Signs Temp 99.2 F 11/07/23 09:00 Pulse 118 H 11/07/23 09:27 Resp 20 11/07/23 09:00 BP 134/100 11/07/23 09:00 Pulse Ox 96 11/07/23 09:00 FiO2 40 11/07/23 09:22 Intake & Output 11/06/23 11/07/23 11/07/23 18:59 06:59 18:59 Intake Total 458.966 501.694 110.286 Output Total 930 770 410 Balance -471.034 -268.306 -299.714 Weight 72 kg 67.8 kg Intake: IV 120 120 50 Sodium Chloride 0.9% 1, 120 120 50 000 ml @ 10 mls/hr IV . Q24H [facility]EL[facility]IN Rx#:[id number] Intake, IV Titration 188.966 381.694 60.286 Amount Lactated Ringers 1,000 ml 220 20 @ 20 mls/hr IV .Q24H [facility]ELVIN Rx#:[id number] propofoL 1,000 mg In 188.966 161.694 40.286 Empty Bag 1 bag @ 15 MCG/ KG/MIN 6.219 mls/hr IV . Q16H5M [facility] Rx#:[id number] Tube Feeding 0 Other 150 Output: Urine 930 770 410 Other: Voiding Method Indwelling Catheter Indwelling Catheter # Bowel Movements 0 ABP, PAP, CO, CI - Last Documented Arterial Blood Pressure 147/79 - Labs CBC & Chem 7: 11/08/23 04:15 11/08/23 04:15 Labs: Abnormal Lab Results - Last 24 Hours (Table) 11/07/23 11/07/23 Range/Units 04:00 05:49 WBC 11.5 H (3.8-10.6) k/uL RBC 3.16 L (4.30-5.90) m/uL Hgb 9.8 L (13.0-17.5) gm/dL Hct 30.8 L (39.0-53.0) % Plt Count 456 H (150-450) k/uL Neutrophils # 9.6 H (1.3-7.7) k/uL Lymphocytes # 0.8 L (1.0-4.8) k/uL ABG pH 7.47 H (7.35-7.45) ABG HCO3 27 H (21-25) mmol/L ABG Total CO2 29 H (19-24) mmol/L ABG O2 Saturation 98.4 H (94-97) % Microbiology - Last 24 Hours (Table) 11/03/23 04:44 Blood Culture - Preliminary Blood
[2023-11-08 05:40] LABS: ABG Base Excess 8.2 mmol/L; ABG HCO3 32 mmol/L (21-25); ABG PCO2 46 mmHg (35-45); ABG PH 7.45 (7.35-7.45); ABG PO2 102 mmHg (83-108); ABG TCO2 34 mmol/L (19-24); Allen Test Performed? Yes
[2023-11-08] MEDS: POTASSIUM BICARBONATE/CIT AC 20 MEQ TABLET.EFF NG-TUBE SCH (07:04)
--- NOTE | 2023-11-08 07:38 | XR ---
EXAMINATION TYPE: XR chest 1V portable DATE OF EXAM: 11/08/2023 COMPARISON: 11/07/2023 HISTORY: Shortness of breath TECHNIQUE: Single frontal view of the chest is obtained. FINDINGS: Tracheostomy tube stable. There appears to be a gastrostomy tube now noted. Diffuse bilate ral consolidation with small effusion. No pneumothorax. Heart mildly enlarged. Degenerative change of the spine. IMPRESSION: Diffuse bilateral infiltrate and small effusion correlate for CHF otherwise consider pne umonia. Findings stable.
[2023-11-08 11:51] LABS: Glucose,Whole Blood 130 mg/dL (70-110)
--- NOTE | 2023-11-08 12:09 | P.PN ---
Subjective Progress Note Date: 11/08/23 Patient is a 48-year-old white male with past medical history significant for hypertension, coronary artery disease, current everyday smoker, and alcohol abuse. He was transferred from [facility] 10/22/2023 for acute pancreatitis. He was noted to be intoxicated on arrival to outside facility, with an alcohol level of 34 mg/dL, while at our facility developed impending acute alcohol withdrawal delirium tremens. He required ICU admission for Precedex infusion. Patient is currently lethargic and not a very good historian. After reviewing the medical records from the outside facility, it appears he presented with abdominal pain. He was also noted to have severely elevated lipase and amylase levels. An abdominal and pelvis CT was performed, which identified peripancreatic inflammatory stranding and fluid consistent with acute pancreatitis. No pseudocyst, abscess, or pancreatic necrosis. No gallstones or ductal dilation. There was decreased attenuation of the hepatic parenchyma, suggestive of fatty infiltration. Patient was dehdydrated and noted to have sustained an WILFRIDO. It appears he was fluid resuscitated with 2 L of crystalloid fluid. He was then transferred to [facility]. He was noted to be agitated and combative. He had received multiple doses of Ativan, I am told a total of 16 mg. He was also receiving Haldol. Despite this, he had sustained recorded CIWA scores greater than 28, and for this reason he was placed on a Precedex infusion and admitted to the intensive care unit. Most recent CBC from yesterday: WBC count 7.6, hemoglobin 13.9, hematocrit 42, platelets 110. Most recent CMP from yesterday: Sodium 138, potassium 4.4, chloride 108, serum bicarb 19, BUN 18, creatinine 1.13, glucose 94. AST 97, ALT 74, ALP 156, total bilirubin 1. Lipase 11,329 and amylase 1468. Patient is currently lethargic and not making much sense when talking. Unsure of when last drink was. Precedex is infusing at 0.4 mcg/kg/h. He does have bilateral upper extremity soft restraints on, which likely can be discontinued. Blood pressure is noted to be hypertensive, has received a clonidine 0.2 mg patch, which is fallen off and will be replaced. EKG shows normal sinus rhythm without any obvious acute ischemic changes. Patient's pain appears well-managed with current regimen of as needed Dilaudid. He does have some facial grimacing with palpation of the bilateral upper abdomen. Normal saline is infusing at 150 MLS per hour. Currently on room air, in no acute respiratory distress. Afebrile. He has been moved to room 262 in the intensive care unit. Patient was evaluated today on 10/25/2023, remains in the ICU, remains on Precedex at 1 mcg/kg/h. Remains on Cleviprex. Remains on Ativan intermittently and on Haldol. In spite of all of this the patient continues to have episodes of extreme agitation and restlessness. And seems to be delirious. Continues to have a sitter at bedside. His WBC is 7.8 hemoglobin 11.3 basic metabolic profile is normal renal profile is normal however his bicarb is 15, lipase is down to 164 today, it was 1668 yesterday, amylase is down to 112 from 598 yesterday obviously his acute pancreatitis is improving chest x-ray showed no evidence of active disease, minimal pulmonary vascular prominence Reevaluate today on 10/26/2023, patient remains in the ICU, he is on room air, continues to have intermittent episodes of extreme agitation, remains on Precedex at 1.4 mcg/kg/h, remains on Ativan intermittently and Haldol intermittently, nonetheless continues to have episodes of significant agitations. Patient is on the CIWA protocol, he seems to require suctioning of his oropharynx, purulent material is noted, patient does have gag with suctioning and able to protect his airways. But he has a very poor cough reflex. At any rate patient will need to be on oral medications, and I am recommending a nasogastric tube to be placed today, if the patient continues to do poorly may have to consider intubation and mechanical ventilation, however this will be the last resort. In the meantime I believe the patient will remain on the same medications he is presently on and will remain on the CIWA protocol. Needs definitely close monitoring in the ICU. Patient is purulent secretions I recommended empirically starting the patient on Zosyn. WBC count is 7.4 hemoglobin 11.3 basic metabolic profile is normal except for low potassium of 3.2 renal profile is normal lipase is down to 72 amylase is normal Patient was reevaluated today on 10/27/2023, patient received significant amount of sedation yesterday, and continued to be restless and agitated, at 1 point he desaturated, and he was gurgling with secretions, I was made aware of the patient and recommended intubation. Patient was intubated and placed on mechanical ventilation overnight, he is on assist-control rate of 20 tidal volume 400 FiO2 40% and PEEP of 5 ABG showed a pO2 of 131 pCO2 34 pH of 7.30 hence kept on the same ventilator settings. He is on propofol at 65 mcg/kg/min is also 1.9 normal saline at 125 cc/h. Patient is receiving bicarb orally for low bicarb. He is also on Zosyn empirically. Patient is also on enteral feeding. Today I went ahead and placed a right radial arterial line for hemodynamic monitoring and for frequent blood draws. WBC count is 5.9 hemoglobin is 9.4. Basic metabolic profile is normal except for bicarb of 14 patient has a hyperchloremic metabolic none anion gap metabolic acidosis. Chest x-ray showed pulmonary vascular congestion, patient received a dose of Lasix earlier this morning Patient was reevaluated today on 10/28/2023, remains in the ICU, intubated and mechanically ventilated. Patient is on assist-control rate of 20 tidal volume 400 FiO2 40% PEEP of 5 ABG showed a pO2 of 160 pCO2 37 pH of 7.34, I cut down his FiO2 down to 35%. Patient is receiving propofol at 55 mcg/kg/min, he is off norepinephrine, receiving 0.9 normal saline at 125 cc/h. Continues to have intermittent episodes of coffee-ground material in the nasogastric tube, hence nutrition/enteral feeding is presently on hold. Chest x-ray is showing some minimal vascular congestion along with small effusions and atelectasis patient remains on Zosyn empirically, he will receive Lasix 1 dose today 20 mg IV push. Patient continues to have significant amount of secretions he was given a trial off sedation patient was agitated, restless, and again significant amount of secretions were noted in the endotracheal tube, hence will hold on weaning today and extubation. WBC count is 3.8 hemoglobin 8.9. Basic metabolic profile is normal, renal profile is normal Patient was reevaluated today on 10/29/2019, remains in the ICU, intubated and mechanically ventilated. Patient was extremely restless and agitated last night on lower dose of sedation, hence his propofol was increased to as high as 70 mcg/kg/min at present. He is requiring Cleviprex at 10 mg/h for tachycardia. He is on IV fluid 0.9 normal saline at 125 cc/h. Continues to have lots of secretions via the endotracheal tube. Patient is to be restarted back on tube feeding, his positioning of the endotracheal tube and nasogastric tube will be adjusted today. Remains on Zosyn his vent settings are 20/400/35%/5 ABG showed a pO2 of 78 pCO2 34 pH of 7.37 chest x-ray today is noted to show mid and lower lung opacities, slightly increased and small pleural effusions. Patient has atelectasis, and may have a component of fluid overload, will continue intermittent diuresis on this patient, patient did receive 40 mg of Lasix IV push today. Cardiogram on this admission showed good LV function ejection fraction of 55 to 60%, and no evidence of valvular heart disease Progress note dated October 30, 2023. This is a 48-year-old male who was admitted on October 21. He came into the hospital, with alcohol withdrawal syndrome. The patient was intubated on October 25 for respiratory failure. He remains on the ventilator. Settings include volume assist-control, rate 20, tidal volume 400, FiO2 35%, with a PEEP of 5. Blood gases show pO2 of 87, pCO2 of 39, pH is 7.43. The patient is on Cleviprex at 1 mg an hour, propofol at 60 mcg/kg/min, saline at KVO, and saline at 30 cc an hour. The patient continues on Zosyn. The patient's sputum revealed evidence of methicillin sensitive Staph aureus. White count is 5.7, hemoglobin 10.1, hematocrit 31.4, and platelet count was 231,000. Sodium 140, potassium 3.4, chlorides 111, CO2 25, BUN 6, creatinine 0.55. Glucose 103. AST 14. Ammonia level was normal. Chest x-ray shows bilateral interstitial and patchy opacities. Progress note dated October 31, 2023. This is a 48-year-old male who was admitted on October 21. He came into the hospital, with alcohol withdrawal syndrome. The patient was intubated on October 25 for respiratory failure. He remains on the ventilator. Current ventilator s ettings include volume assist-control, rate 20, tidal volume 400, FiO2 35%, PEEP of 5. Blood gases show pO2 of 88, pCO2 46, pH is 7.46. The patient is getting propofol at 70 mcg/kg/min, Cleviprex at 2 mg an hour, and Nepro tube feedings at 19 cc an hour, which is goal. Today, we will add amlodipine at 5 mg an hour for better blood pressure control, and the patient continues on Zosyn, for staphy lococci in the sputum. White count 7.2, hemoglobin 10.2, hematocrit 31, and platelet count was normal. Sodium 140, potassium 3.9, chlorides 106, CO2 31, BUN 8, creatinine 0.52. Glucose is 120. Calcium 8.8. Patient's chest x-ray shows a stable exam with small bilateral pleural effusions, and adjacent atelectasis. Progress note dated November 01, 2023. 48-year-old male who was admitted on October 21. He came to the hospital with alcohol withdrawal syndrome. The patient was intubated on October 25, for respiratory failure. He remains on the ventilator. Settings include volume assist-control, rate 20, tidal volume 400, FiO2 35%, and PEEP of 5. Blood gases show pO2 74, pCO2 45, pH is 7.47. He is on propofol at 70 mcg/kg/min, and Cleviprex at 4 mg an hour. The patient is getting saline at 50 cc an hour. He is also getting tube feedings with Nepro at 27 cc an hour, which is goal. Resid uals were high. We added Reglan 10 mg every 6. In addition, because of failure to wean from mechanical ventilation, the patient will have a surgical consultation for possible tracheostomy and PEG tube placement. Current labs include a white count 6.7, hemoglobin 10, hematocrit 30.9, and a platelet count of 305,000. Sodium 139, potassium 3.9, chlorides 106, CO2 31, BUN 11, creatinine 0.62. Glucose is 109. Calcium is 9.1. Sputum from October 25 was positive for Staphylococcus aureus. Chest x-ray is largely unchanged. Progress note dated November 02, 2023. The patient is seen today in room 262. 48-year-old male admitted on October 21. He came into the hospital with alcohol withdrawal syndrome. He was intubated for respiratory failure on October 26, 2023. He remains on the ventilator. Ve ntilator settings include volume assist-control, rate 20, tidal volume 400, FiO2 35%, and PEEP of 5. Blood gases show pO2 106, pCO2 49, pH is 7.43. The patient is on saline at 20 cc an hour, propofol at 60 mcg/kg/min, and fentanyl 1 mcg/kg/h. He is getting Zosyn IV. The patient is scheduled to have a possible tracheostomy and PEG tube placement today. White count is 8.1, hemoglobin 9.8, hematocrit 29.3, platelet count normal. Sodium 140, potassium 3.9, chlorides 109, CO2 31, BUN 13, creatinine 0.73. Glucose is 96. Calcium 9.1. Sputum Gram stain from 418, showed evidence of Staphylococcus aureus. Chest x-ray shows bilateral lung opacities. Chest x-ray is essentially unchanged. Progress note dated November 03, 2023. The patient is seen today again in room 262. The patient remains on mechanical ventilator. Ventilator settings include volume assist-control, rate 20, tidal volume 400, FiO2 35%, PEEP of 5. Blood gases show pO2 of 83, pCO2 48, pH of 7.41. The patient continues on propofol at 60 mcg/kg/min, fentanyl at 1 mcg/kg/h, and saline at 10 cc an hour. Tube feedings are on hold, for possible PEG tube placement today, November 02. The patient did have a tracheostomy perf ormed on November 01. I am going to add Dilaudid 1 mg every 6 hours, to his regimen, to see if we can get him off the fentanyl drip. White count 10.8, hemoglobin 10.6, macro 33, with a normal platelet count. Sodium 137, potassium 4.2, chlorides 104, CO2 30, BUN 14, creatinine 0.74. Albumin is 2.8. Glucose is 76. Sputum on October 25 was positive for Staphylococcus aureus. Chest x-ray shows the presence of a tracheostomy tube. Bilateral infiltrates, appear improved. Progress note dated November 04, 2023. This is a 48-year-old male seen today in room 62. The patient remains on mechanical ventilator. He is on volume assist-control, rate 20, tidal volume 400, FiO2 50%, and PEEP of 5. Blood gases show pO2 of 72, pCO2 47, pH is 7.41. The patient continues on fentanyl and 0.5 mcg/kg/h, propofol at 40 mcg/kg/min, lactated Ringer's at 20 cc an hour. Current laboratory data includes a white count 12.5, hemoglobin 9.9, hematocrit 30.3, and platelet count 357,000. Sodium 135, potassium 4.3, chlorides 102, CO2 28, BUN 19, creatinine 0.64. Glucose is 86. Phosphorus 4.7, calcium 9, magnesium 1.9. Sputum from October 25 shows evidence of Staphylococcus aureus. Chest x-ray shows bilateral small effusions, with adjacent atelectasis. Progress note dated November 05, 2023. 48-year-old male seen again in room 262. The patient remains on mechanical ventilator. Settings include volume assist-control, rate 20, tidal volume 400, FiO2 50%, PEEP of 5. Blood gases show pO2 112, pCO2 45, pH is 7.46. The patient is getting lactated Ringer's at 20 cc an hour, propofol at 10 mcg/kg/min, and tube feedings with Nepro, at 10 cc an hour, with a goal of 19. The patient is currently not on any antibiotics. We will attempt a daily interruption of sedation, and spontaneous breathing trial today, with a CPAP of 5, and pressure support of 5. White count 14, hemoglobin 10.5, hematocrit 31.8, and platelet count 365,000. Sodium 137, potassium 3.7, chlorides 103, CO2 31, BUN 16, creatinine 0.69. Calcium is 9.2. Magnesium 1.9. Sputum from the was positive for Staphylococcus aureus. The patient has completed his antibiotics. Chest x-ray shows bilateral patchy infiltrates, which could be on the basis of fluid, and or pneumonia. On today's evaluation of 11/06/2023, the patient is being seen for a follow-up. This is a 48-year-old male patient with known history of a complicated al coholism with history of alcoholic pancreatitis and delirium. The patient is post acute hypoxic respiratory failure due to his comorbidities and the patient was difficult to extubate. The patient required mechanical ventilation on 10/26/2023 and ultimately the patient was given a tracheostomy tube on 11/02/2023. He still has an NG tube in place and the patient is going to undergo a PEG tube insertion today. On today's evaluation, the patient is on propofol running at 40 mcg/kg/min. The patient is n.p.o. awaiting PEG tube insertion. There is an NG tube in place. IV fluids are in the form of normal saline at rate of 20 cc an hour. Is on assist-control mode of mechanical ventilation at rate of 20, tidal volume of 400, FiO2 of 50% with a PEEP of 5. His sputum was positive for MSSA and the patient completed a course of IV Zosyn. He has a arterial line in the right upper extremity. Fluid balance is -837 cc over the past 24 hours. Blood gas from today shows a pH of 7.44 with a pCO2 of 47 and pO2 of 94. The white cell count at 9 with a hemoglobin 9.2 and a platelet count of 383. The rest of the electrolytes are all stable. BUN is at 40 with a creatinine of 0.7 and the blood sugar is 93 from this morning. The chest x-ray shows basilar infiltrate and a small effusion otherwise the findings are essentially stable. Tracheostomy tube is in good location. No significant orotracheal secretions at this point in time. No hemodynamic instability. No hypotension. On today's evaluation of 11/07/2023, I am seeing the patient in follow-up in the intensive care unit. The patient remains intubated on the mechanical ventilator. She is currently on propofol running at 10 mcg/kg/min. The patient is on assist-control mode of mechanical ventilation at the rate of 20, tidal volume of 400, FiO2 40% with a PEEP of 5. The blood gas shows a pH of 7.47 with a pCO2 of 38 and a pO2 of 96. The patient is arousable and he is calm and comfortable. Following simple commands and moving all 4 extremities without any limitation. Chest x-ray shows some infiltration in lung bases and small bilateral pleural effusions. Nevertheless, the patient has demonstrated adequate oxygenation. As mentioned, the patient had prolonged respiratory failure and the patient has a #[address] tracheostomy tube in place. PEG tube insertion was not successful yesterday without any issues and the patient is going to be started on enteral feeding for nutritional support. Hemoglobin is at 9.8 with a platelet count of 456. BUN is 14 with a creatinine of 0.7 and a sodium levels at 137. The patient is currently on no antibiotics. The patient has completed his course of IV Zosyn. The patient is on bronchodilators [id number]. The patient has metoprolol for some sinus tachycardia and blo od pressure control and a dose of 50 mg p.o. twice daily. He is also taking Seroquel 100 mg twice a day. He is on Isoptin 80 mg p.o. 3 times daily. Surgical wound site over the abdomen is dry clean and intact. On today's evaluation of 11/08/2023, the patient is being seen for a follow-up. This morning, the patient is resting comfortably in bed. No today put the patient on pressure support mode of mechanical ventilation yesterday and the patient was able to tolerate it for a total of 6 hours and following that was placed on assist-control mode, volume cycle. The same is being done today. The patient was on assist-control mode at a rate of 20 with a tidal volume of 400 and a PEEP of 5 with an FiO2 of 40%. The patient has been switched to pressure support of 7 and a PEEP of 5. The patient was also on propofol which has been weaned off and currently is off sedation. Resting comfortably in bed. He underwent a PEG tube insertion. Enteral feeding with Nepro was initiated and the patient is currently at the rate of 32 cc an hour. Abdomen slightly distended. No bowel movement activity yet. The patient remains on Reglan. Fluid balance is ordered of -730 cc over the past 24 hours and the patient is receiving lactated Ringer at rate of 20 cc an hour. WBC count is 11.6 with a hemoglobin 9.7 and a platelet count of 424. Blood gas from this morning showed a pH of 7.45 with a pCO2 of 46 and pO2 of 102. BUN is 16 with a creatinine of 0.8 and a sodium levels at 138. Chest x-ray from today is essentially unchanged. The patient continues to have bilateral infiltrates and small effusions, essentially unchanged over the past 1 week. He is arousable. He follows simple commands. No significant agitation at this point in time. Objective - Vital Signs Vital signs: Vital Signs Temp 99.7 F H 11/08/23 05:00 Pulse 105 H 11/08/23 09:14 Resp 20 11/08/23 07:00 BP 109/79 11/08/23 07:00 Pulse Ox 99 11/08/23 07:00 FiO2 40 11/08/23 08:59 Intake & Output 11/07/23 11/08/23 11/08/23 18:59 06:59 18:59 Intake Total 589.621 9693.784 124.589 Output Total 1025 935 40 Balance -512.021 133.784 84.589 Weight 68 kg Intake: IV 230 240 20 Sodium Chloride 0.9% 1, 230 240 20 000 ml @ 10 mls/hr IV . Q24H [facility] Rx#:[id number] Intake, IV Titration 96.979 354.784 72.589 Amount Lactated Ringers 1,000 ml 20 @ 20 mls/hr IV .Q24H [facility] Rx#:[id number] Piperacillin-Tazobactam 3 200 .375 gm In Sodium Chloride 0.9% 100 ml @ 25 mls/hr IVPB Q8H [facility] Rx#: [id number] propofoL 1,000 mg In 76.979 154.784 72.589 Empty Bag 1 bag @ 15 MCG/ KG/MIN 6.219 mls/hr IV . Q16H5M [facility] Rx#:[id number] Tube Feeding 96 384 32 Other 90 90 Output: Urine 1025 935 40 Other: Voiding Method Indwelling Catheter Indwelling Catheter # Bowel Movements 0 0 ABP, PAP, CO, CI - Last Documented Arterial Blood Pressure 129/67 - Exam No acute distress, currently sedated, with a midline tracheostomy tube. Calm and comfortable, sedated on propofol. The patient is arousable and awake and following simple commands currently off propofol Head exam was generally normal. There was no scleral icterus or corneal arcus. Mucous membranes were moist. HEENT examination is grossly unremarkable. The patient has a tracheostomy tube in place. Exit site is dry clean and intact. Neck supple. Full range of motion. No adenopathy thyromegaly or neck vein distention. Cardiovascular examination reveals regular rhythm rate. S1-S2 normal. No S3 or S4. No discernible murmur noted. Heart sounds are distant. Lungs reveal scattered bilateral rhonchi. No wheezes or crackles. Breath sounds equal. Abdominal exam revealed normal bowel sounds. The abdomen was soft, non-tender, and without masses, organomegaly, or appreciable enlargement of the abdominal aorta.. The PEG tube site is dry clean and intact. Extremities are intact. No cyanosis clubbing or edema. Skin is without rash or lesion. Neurologic examination, the patient is sedated, arousable, moving all 4 extremities. There is generalized global weakness in all 4 extremities related to prolonged respiratory failure and mechanical ventilation. - Labs CBC & Chem 7: 11/08/23 04:15 11/08/23 04:15 Labs: Abnormal Lab Results - Last 24 Hours (Table) 11/07/23 11/07/23 11/08/23 Range/Units 21:00 21:24 02:15 WBC (3.8-10.6) k/uL RBC (4.30-5.90) m/uL Hgb (13.0-17.5) gm/dL Hct (39.0-53.0) % Neutrophils # (1.3-7.7) k/uL Lymphocytes # (1.0-4.8) k/uL ABG pCO2 (35-45) mmHg ABG HCO3 (21-25) mmol/L ABG Total CO2 (19-24) mmol/L ABG O2 Saturation (94-97) % Sodium (137-145) mmol/L Carbon Dioxide (22-30) mmol/L Glucose (74-99) mg/dL POC Glucose (mg/dL) 114 H (70-110) mg/dL Procalcitonin 0.29 H (0.02-0.09) ng/mL Urine Protein Trace H (Negative) Urine Ketones 1+ H (Negative) Ur Leukocyte Esterase Moderate H (Negative) Urine WBC 23 H (0-5) /hpf Amorphous Sediment Few H (None) /hpf Urine Bacteria Many H (None) /hpf Hyaline Casts 12 H (0-2) /lpf Urine Mucus Many H (None) /hpf 11/08/23 11/08/23 11/08/23 Range/Units 04:15 04:15 05:35 WBC 11.6 H (3.8-10.6) k/uL RBC 3.12 L (4.30-5.90) m/uL Hgb 9.7 L (13.0-17.5) gm/dL Hct 30.2 L (39.0-53.0) % Neutrophils # 9.7 H (1.3-7.7) k/uL Lymphocytes # 0.7 L (1.0-4.8) k/uL ABG pCO2 46 H (35-45) mmHg ABG HCO3 32 H (21-25) mmol/L ABG Total CO2 34 H (19-24) mmol/L ABG O2 Saturation 98.0 H (94-97) % Sodium 136 L (137-145) mmol/L Carbon Dioxide 31 H (22-30) mmol/L Glucose 128 H (74-99) mg/dL POC Glucose (mg/dL) (70-110) mg/dL Procalcitonin (0.02-0.09) ng/mL Urine Protein (Negative) Urine Ketones (Negative) Ur Leukocyte Esterase (Negative) Urine WBC (0-5) /hpf Amorphous Sediment (None) /hpf Urine Bacteria (None) /hpf Hyaline Casts (0-2) /lpf Urine Mucus (None) /hpf Microbiology - Last 24 Hours (Table) 11/07/23 20:51 Gram Stain - Preliminary Sputum Assessment and Plan Plan: Acute hypoxemic respiratory failure, secondary to acute alcohol withdrawal syndrome, status post intubation and mechanical ventilation, on October 26, 2023. The patient remains intubated on mechanical ventilator. The plan for now is to proceed with a PEG tube insertion and subsequently will assess his readiness to wean off the mechanical ventilator. Chest x-ray showing limited bibasilar pulm infiltrates. Completed his antibiotic course as the patient was found to have MSSA in his sputum. Completed course of IV Zosyn. Currently hemodynamically stable. The patient is currently on the mechanical ventilator, chest x-ray was noted and the blood gas were noted. Overall condition is stable. The patient will be switched to a pressure support mode of mechanical ventilation. The initial trial was done yesterday and the second trial is being done today with a pressure support of 7 and a PEEP of 5. Chest x-ray findings remain unchanged. Prolonged respiratory failure requiring tracheostomy tube insertion and the p atient is S/P tracheostomy November 02, 2023. Enteral feeding via PEG tube and a tube was inserted yesterday without any complications. Acute alcohol withdrawal with acute alcohol intoxication. No active signs of encephalopathy or delirium at this point in time and the patient is currently on Seroquel 100 mg p.o. twice a day Acute alcoholic pancreatitis. Hypertensive urgency. Abdominal pain, secondary to pancreatitis. Acute kidney injury. History of alcoholism. Mild transaminitis. History of coronary artery disease. Current everyday smoker. Sinus tachycardia Plan: Continue ventilator support, and switch this patient to pressure support mode of mechanical ventilation with a pressure support of 7 and a PEEP of 5 hold propofol Continue enteral feeding for nutritional support, the patient is currently on Nepro at rate of 30 cc an hour. Add lactulose 20 g twice a day and Dulcolax suppositories. PEG tube insertion was completed yesterday and the patient is postop day # 2 Seroquel for delirium and agitation at a dose of 100 mg p.o. twice a day Continue thiamine and folate No need for pressors for now Continue Isoptin and increase the metoprolol to 50 mg p.o. 3 times daily Aggressive physical therapy and passive range of motion Lovenox 40 mg subcu for DVT prophylaxis Continue bronchodilators Gradually wean off the sedation and evaluate for readiness to wean post PEG tube insertion. Consult select specialty Critical care evaluation that was done more than 30 minutes. Time with Patient: Greater than 30
--- NOTE | 2023-11-08 12:30 | P.PN ---
Subjective Progress Note Date: 11/08/23 CHIEF COMPLAINT: Abdominal pain HISTORY OF PRESENT ILLNESS: Patient status post PEG tube placement on 11/06/23. Patient is status post tracheostomy placement on 11/02/23. Patient is tolerating tube feeds. Abdomen mildly distended. No residual reported. No nausea or vomiting. Last bowel movement 10/31/2023. Critical care service has added lactulose for constipation PHYSICAL EXAM: VITAL SIGNS: Reviewed. GENERAL: no acute distress. Neck: trach site clean, dry and intact ABDOMEN: Soft. mildly distended. PEG tube site clean dry and intact ASSESSMENT: 1. Acute hypoxic respiratory failure due to alcohol withdraw syndrome 2. Severe protein calorie malnutrition 3. Acute pancreatitis PLAN: -Continue to titrate tube feeds -Continue ICU management -Continue supportive care Physician Concrete Handler note has been reviewed by physician. Signing provider agrees with the documented findings, assessment, and plan of care. Objective - Vital Signs Vital signs: Vital Signs Temp 99.7 F H 11/08/23 05:00 Pulse 99 11/08/23 11:59 Resp 21 11/08/23 11:00 BP 97/68 11/08/23 11:00 Pulse Ox 100 11/08/23 11:00 FiO2 40 11/08/23 11:40 Intake & Output 11/07/23 11/08/23 11/08/23 18:59 06:59 18:59 Intake Total 202.747 1553.784 363.107 Output Total 1025 935 364 Balance -512.021 133.784 -0.893 Weight 68 kg Intake: IV 230 240 100 Sodium Chloride 0.9% 1, 230 240 100 000 ml @ 10 mls/hr IV . Q24H [facility] Rx#:[id number] Intake, IV Titration 96.979 354.784 73.107 Amount Lactated Ringers 1,000 ml 20 @ 20 mls/hr IV .Q24H [facility] Rx#:[id number] Piperacillin-Tazobactam 3 200 .375 gm In Sodium Chloride 0.9% 100 ml @ 25 mls/hr IVPB Q8H [facility] Rx#: [id number] propofoL 1,000 mg In 76.979 154.784 73.107 Empty Bag 1 bag @ 15 MCG/ KG/MIN 6.219 mls/hr IV . Q16H5M [facility] Rx#:[id number] Tube Feeding 96 384 160 Other 90 90 30 Output: Urine 1025 935 364 Other: Voiding Method Indwelling Catheter Indwelling Catheter # Bowel Movements 0 0 ABP, PAP, CO, CI - Last Documented Arterial Blood Pressure 111/59 - Labs CBC & Chem 7: 11/08/23 04:15 11/08/23 04:15 Labs: Abnormal Lab Results - Last 24 Hours (Table) 11/07/23 11/07/23 11/08/23 Range/Units 21:00 21:24 02:15 WBC (3.8-10.6) k/uL RBC (4.30-5.90) m/uL Hgb (13.0-17.5) gm/dL Hct (39.0-53.0) % Neutrophils # (1.3-7.7) k/uL Lymphocytes # (1.0-4.8) k/uL ABG pCO2 (35-45) mmHg ABG HCO3 (21-25) mmol/L ABG Total CO2 (19-24) mmol/L ABG O2 Saturation (94-97) % Sodium (137-145) mmol/L Carbon Dioxide (22-30) mmol/L Glucose (74-99) mg/dL POC Glucose (mg/dL) 114 H (70-110) mg/dL Procalcitonin 0.29 H (0.02-0.09) ng/mL Urine Protein Trace H (Negative) Urine Ketones 1+ H (Negative) Ur Leukocyte Esterase Moderate H (Negative) Urine WBC 23 H (0-5) /hpf Amorphous Sediment Few H (None) /hpf Urine Bacteria Many H (None) /hpf Hyaline Casts 12 H (0-2) /lpf Urine Mucus Many H (None) /hpf 11/08/23 11/08/23 11/08/23 Range/Units 04:15 04:15 05:35 WBC 11.6 H (3.8-10.6) k/uL RBC 3.12 L (4.30-5.90) m/uL Hgb 9.7 L (13.0-17.5) gm/dL Hct 30.2 L (39.0-53.0) % Neutrophils # 9.7 H (1.3-7.7) k/uL Lymphocytes # 0.7 L (1.0-4.8) k/uL ABG pCO2 46 H (35-45) mmHg ABG HCO3 32 H (21-25) mmol/L ABG Total CO2 34 H (19-24) mmol/L ABG O2 Saturation 98.0 H (94-97) % Sodium 136 L (137-145) mmol/L Carbon Dioxide 31 H (22-30) mmol/L Glucose 128 H (74-99) mg/dL POC Glucose (mg/dL) (70-110) mg/dL Procalcitonin (0.02-0.09) ng/mL Urine Protein (Negative) Urine Ketones (Negative) Ur Leukocyte Esterase (Negative) Urine WBC (0-5) /hpf Amorphous Sediment (None) /hpf Urine Bacteria (None) /hpf Hyaline Casts (0-2) /lpf Urine Mucus (None) /hpf 11/08/23 Range/Units 11:50 WBC (3.8-10.6) k/uL RBC (4.30-5.90) m/uL Hgb (13.0-17.5) gm/dL Hct (39.0-53.0) % Neutrophils # (1.3-7.7) k/uL Lymphocytes # (1.0-4.8) k/uL ABG pCO2 (35-45) mmHg ABG HCO3 (21-25) mmol/L ABG Total CO2 (19-24) mmol/L ABG O2 Saturation (94-97) % Sodium (137-145) mmol/L Carbon Dioxide (22-30) mmol/L Glucose (74-99) mg/dL POC Glucose (mg/dL) 130 H (70-110) mg/dL Procalcitonin (0.02-0.09) ng/mL Urine Protein (Negative) Urine Ketones (Negative) Ur Leukocyte Esterase (Negative) Urine WBC (0-5) /hpf Amorphous Sediment (None) /hpf Urine Bacteria (None) /hpf Hyaline Casts (0-2) /lpf Urine Mucus (None) /hpf Microbiology - Last 24 Hours (Table) 11/07/23 20:51 Gram Stain - Preliminary Sputum
[2023-11-08] MEDS: LACTULOSE 20 GM/30 ML CUP PO SCH (12:52)
--- NOTE | 2023-11-08 15:22 | P.PN ---
Subjective Progress Note Date: 11/08/23 48-year-old white male with past medical history significant for hypertension, coronary artery disease, current everyday smoker, and alcohol abuse. He was transferred from [facility] 10/22/2023 for acute pancreatitis. He was noted to be intoxicated on arrival to outside facility, with an alcohol level of 34 mg/dL. He required ICU admission for Precedex infusion. He was also noted to have severely elevated lipase and amylase levels. An abdominal and pelvis CT was performed, which identified peripancreatic inflammatory stranding and fluid consistent with acute pancreatitis. No pseud ocyst, abscess, or pancreatic necrosis. No gallstones or ductal dilation. There was decreased attenuation of the hepatic parenchyma, suggestive of fatty infiltration. Patient was dehdydrated and noted to have sustained an WILFRIDO. It appears he was fluid resuscitated with 2 L of crystalloid fluid. He was then transferred to [facility]. CBC from yesterday: WBC count 7.6, hemoglobin 13.9, hematocrit 42, platelets 110. Most recent CMP from yesterday: Sodium 138, potassium 4.4, chloride 108, serum bicarb 19, BUN 18, creatinine 1.13, glucose 94. AST 97, ALT 74, ALP 156, total bilirubin 1. Lipase 11,329 and amylase 1468. Patient is currently lethargic and not making much sense when talking. Unsure of when last drink was. Precedex is infusing at 0.4 mcg/kg/h. He does have bilateral upper extremity soft restraints on, which likely can be discontinued. Blood pressure is noted to be hypertensive, has received a clonidine 0.2 mg patch, which is fallen off and will be replaced. EKG shows normal sinus rhythm without any obvious acute ischemic changes. Patient's pain appears well-managed with current regimen of as needed Dilaudid. He does have some facial grimacing with palpati on of the bilateral upper abdomen. Normal saline is infusing at 150 MLS per hour. Currently on room air, in no acute respiratory distress. Afebrile. He has been moved to room 262 in the intensive care unit. -- Plan of care was discussed with patient's mother; reports she was told by family noticed that patient is now qualifying for hospice/palliative care -- Patient condition discussed in great detail; crank hand recommendations discussed with patient also; no plan to consult hospice or palliative care at this time 11/04/2023 Patient is seen and evaluated in room at bedside; discussed with nursing staff; no family members present in the room Patient remains on mechanical ventilator. He is on volume assist-control Blood gases show pO2 of 72, pCO2 47, pH is 7.41. Lab review shows white count 12.5, hemoglobin 9.9, hematocrit 30.3, and platelet count 357,000. Sodium 135, potassium 4.3, chlorides 102, CO2 28, BUN 19, creatinine 0.64. Glucose is 86. Phosphorus 4.7, calcium 9, magnesium 1.9. Sputum from October 25 shows evidence of Staphylococcus aureus. Chest x-ray shows bilateral small effusions, with adjacent atelectasis. -- Plan for PEG tube placement on 11/06/2023; and has been placed back on tube feeding -Intensive care service planning to wean off the fentanyl, patient has been placed on Dilaudid 1 mg every 4 hours -- Patient is status post tracheostomy; PEG tube placement rescheduled for Monday due to nonavailability of OR 11/05/2023 Patient is seen and evaluated in room at bedside; patient remains on mechanical ventilator. Settings include volume assist-control, rate 20, tidal volume 400, FiO2 50%, PEEP of 5. -- Blood gases show pO2 112, pCO2 45, pH is 7.46. The patient is getting lactated Ringer's at 20 cc an hour, propofol at 10 mcg/kg/min, and tube feedings with Nepro, at 10 cc an hour, with a goal of 19. - White count 14, hemoglobin 10.5, hematocrit 31.8, and platelet count 365,000. Sodium 137, potassium 3.7, chlorides 103, CO2 31, BUN 16, creatinine 0.69. Calcium is 9.2. Magnesium 1.9. Sputum from the was positive for Staphylococcus aureus. The patient has completed his antibiotics. Chest x-ray shows bilateral patchy infiltrates, which could be on the basis of fluid, and or pneumonia. 11/06/2023 Patient is seen and evaluated in follow-up today remains on mechanical ventilation with an FiO2 of 50% currently being dropped down to 40% with a PEEP of 5. Patient is status post tracheostomy and currently awaiting to receive a PEG tube today. Tube feedings are on hold and will be resumed once cleared per surgery after 24 hours. Patient remains on propofol with no plans of weaning trial today. Patient did have an attempted weaning trial yesterday and per nursing staff did not tolerate very well. Pulmonary crank hand following with plans on resuming weaning trials tomorrow. Patient is afebrile and has completed a course of antibiotics. Follow-up chest x-ray ordered and pending. 11/07/2023 Patient is seen and evaluated in follow-up status post continued on tracheostomy with an FiO2 of 40% PEEP is 5 as well as PEG tube yesterday. Tube feedings to initiate per surgery today and will monitor for tolerance. Chest x-ray today shows diffuse bilateral infiltrates and small effusion correlate for CHF otherwise findings stable from previous. Blood pressure on the higher side and heart rates into the 1 teens, maintained on verapamil and metoprolol. Patient having low-grade temps and white count is mildly elevated we will repeat cultures including obtaining a sputum culture and urinalysis and initiate Zosyn. Procalcitonin ordered as well. Continue aspiration precautions. Patient is awake and following some commands. Patient is mumbling and attempting to talk. Patient denies pain at this time. 11/08/2023 Patient is seen and evaluated in follow-up continues to be in the ICU currently on pressure support on the vent and off propofol attempting to wean completely off. Patient was having low-grade temps and initial sputum culture showing Staph aureus, repeat sputum and blood cultures ordered as patient white count becoming more elevated and remaining and also tachycardia with concerns of possible pneumonia. Chest x-ray shows diffuse bilateral infiltrate and small effusion correlate for CHF otherwise consider pneumonia. Patient having significant secretions requiring frequent suctioning with concerns of pneumonia. Patient is status post tracheostomy and PEG tube and has been started on tube feedings and tolerating thus far. Working on goal. Will consult infectious disease and appreciate input and recommendations as patient was on antibiotics previously with concerns of aspiration pneumonia although having recurrent fevers and newly elevated white count. Potassium on the lower side will replace per protocol. Procalcitonin is 0.29. Will also add COVID/influenza/RSV testing as patient has had prolonged hospitalization. Patient may be a good candidate for select specialties and a referral will be placed. Social work is following closely. Review of systems: Unable to completely obtain as patient remains on mild sedation Physical exam: Gen: This is a 48-year-old male who is currently on mechanical ventilation via tracheostomy with an FiO2 of 40% and PEEP is 5, well-developed, ill-appearing HEENT: Head is atraumatic, normocephalic. Pupils equal, round. Sclerae is anicteric. NECK: Supple. No JVD. No lymphadenopathy. No thyromegaly. LUNGS: Diminished breath sounds bilaterally otherwise clear to auscultation. There is some coarse rhonchi noted at the bases. No intercostal retractions. HEART: S1, S2 are muffled ABDOMEN: Soft. Bowel sounds are present. No masses. No tenderness. EXTREMITIES: No pedal edema. No calf tenderness. NEUROLOGICAL: Patient is currently sedated on propofol. Unable to completely assess Assessment: Acute hypoxemic respiratory failure secondary to alcohol withdrawal symptoms and DTs currently intubated and on mechanical ventilator since October 26, 2023, status post tracheostomy Leukocytosis with low-grade temps, concern for pneumonia, will initiate blood cultures, urinalysis, empiric antibiotics and procalcitonin Acute alcohol withdrawal symptoms and DTs Uncontrolled hypertension. Improved now. Acute pancreatitis likely alcohol-related Acute kidney injury likely prerenal improved now. Severe alcohol abuse Mild transaminitis improved History of coronary disease Currently everyday smoker GI and DVT prophylaxis Full code Plan: Patient remains on mechanical ventilator. Patient is status post tracheostomy on 11/01/2023. Currently working on weaning and is awake following commands. Attempting to talk although raspy and soft. Patient does continue with tracheostomy on pressure support currently and undergoing weaning trials. Cleviprex is off. Propofol is currently on hold. Continue to titrate blood pressure medications. Patient did have a few low-grade temps along with the elevated white count above 10 with concerns of pneumonia as noted on the chest x-ray. Will initiate Zosyn, blood cultures and sputum culture pending, urinalysis, and procalcitonin was 0.29. Will consult infectious disease and appreciate input and recommendations as patient is high risk for aspiration being on the vent with prolonged hospitalization. Initial culture showing Staph aureus and was treated with antibiotics. Patient having recurrent fevers and elevated white count with tachycardia.. Continue with tube feedings and working on goal Daily weaning trials as per critical care team. Consult to select specialties Will follow-up with repeat chest x-ray as well as labs and replace electrolytes per protocol, potassium on the lower side and will replace per protocol Overall prognosis is guarded at this time The impression and plan of care has been dictated by Francia Walters, Nurse Practitioner as directed. Dr. Milton MD I have performed a history and examination and MDM of this patient, discussed the same with the dictator, and agree with the dictator's assessment and plan as written ,documented as a scribe. Based on total visit time, I have performed more than 50% of the visit. Objective - Vital Signs Vital signs: Vital Signs Temp 100.2 F H 11/08/23 12:00 Pulse 107 H 11/08/23 14:00 Resp 18 11/08/23 14:00 BP 122/88 11/08/23 14:00 Pulse Ox 99 11/08/23 14:00 FiO2 40 11/08/23 12:00 Intake & Output 11/07/23 11/08/23 11/08/23 18:59 06:59 18:59 Intake Total 300.795 8504.784 549.107 Output Total 1025 935 464 Balance -512.021 133.784 85.107 Weight 68 kg 68 kg Intake: IV 230 240 160 Sodium Chloride 0.9% 1, 230 240 160 000 ml @ 10 mls/hr IV . Q24H [facility] Rx#:[id number] Intake, IV Titration 96.979 354.784 73.107 Amount Lactated Ringers 1,000 ml 20 @ 20 mls/hr IV .Q24H [facility] Rx#:[id number] Piperacillin-Tazobactam 3 200 .375 gm In Sodium Chloride 0.9% 100 ml @ 25 mls/hr IVPB Q8H [facility] Rx#: [id number] propofoL 1,000 mg In 76.979 154.784 73.107 Empty Bag 1 bag @ 15 MCG/ KG/MIN 6.219 mls/hr IV . Q16H5M [facility] Rx#:[id number] Tube Feeding 96 384 256 Other 90 90 60 Output: Urine 1025 935 464 Other: Voiding Method Indwelling Catheter Indwelling Catheter # Bowel Movements 0 0 ABP, PAP, CO, CI - Last Documented Arterial Blood Pressure 115/62 - Labs CBC & Chem 7: 11/08/23 04:15 11/08/23 04:15 Labs: Abnormal Lab Results - Last 24 Hours (Table) 11/07/23 11/07/23 11/08/23 Range/Units 21:00 21:24 02:15 WBC (3.8-10.6) k/uL RBC (4.30-5.90) m/uL Hgb (13.0-17.5) gm/dL Hct (39.0-53.0) % Neutrophils # (1.3-7.7) k/uL Lymphocytes # (1.0-4.8) k/uL ABG pCO2 (35-45) mmHg ABG HCO3 (21-25) mmol/L ABG Total CO2 (19-24) mmol/L ABG O2 Saturation (94-97) % Sodium (137-145) mmol/L Carbon Dioxide (22-30) mmol/L Glucose (74-99) mg/dL POC Glucose (mg/dL) 114 H (70-110) mg/dL Procalcitonin 0.29 H (0.02-0.09) ng/mL Urine Protein Trace H (Negative) Urine Ketones 1+ H (Negative) Ur Leukocyte Esterase Moderate H (Negative) Urine WBC 23 H (0-5) /hpf Amorphous Sediment Few H (None) /hpf Urine Bacteria Many H (None) /hpf Hyaline Casts 12 H (0-2) /lpf Urine Mucus Many H (None) /hpf 11/08/23 11/08/23 11/08/23 Range/Units 04:15 04:15 05:35 WBC 11.6 H (3.8-10.6) k/uL RBC 3.12 L (4.30-5.90) m/uL Hgb 9.7 L (13.0-17.5) gm/dL Hct 30.2 L (39.0-53.0) % Neutrophils # 9.7 H (1.3-7.7) k/uL Lymphocytes # 0.7 L (1.0-4.8) k/uL ABG pCO2 46 H (35-45) mmHg ABG HCO3 32 H (21-25) mmol/L ABG Total CO2 34 H (19-24) mmol/L ABG O2 Saturation 98.0 H (94-97) % Sodium 136 L (137-145) mmol/L Carbon Dioxide 31 H (22-30) mmol/L Glucose 128 H (74-99) mg/dL POC Glucose (mg/dL) (70-110) mg/dL Procalcitonin (0.02-0.09) ng/mL Urine Protein (Negative) Urine Ketones (Negative) Ur Leukocyte Esterase (Negative) Urine WBC (0-5) /hpf Amorphous Sediment (None) /hpf Urine Bacteria (None) /hpf Hyaline Casts (0-2) /lpf Urine Mucus (None) /hpf 11/08/23 Range/Units 11:50 WBC (3.8-10.6) k/uL RBC (4.30-5.90) m/uL Hgb (13.0-17.5) gm/dL Hct (39.0-53.0) % Neutrophils # (1.3-7.7) k/uL Lymphocytes # (1.0-4.8) k/uL ABG pCO2 (35-45) mmHg ABG HCO3 (21-25) mmol/L ABG Total CO2 (19-24) mmol/L ABG O2 Saturation (94-97) % Sodium (137-145) mmol/L Carbon Dioxide (22-30) mmol/L Glucose (74-99) mg/dL POC Glucose (mg/dL) 130 H (70-110) mg/dL Procalcitonin (0.02-0.09) ng/mL Urine Protein (Negative) Urine Ketones (Negative) Ur Leukocyte Esterase (Negative) Urine WBC (0-5) /hpf Amorphous Sediment (None) /hpf Urine Bacteria (None) /hpf Hyaline Casts (0-2) /lpf Urine Mucus (None) /hpf Microbiology - Last 24 Hours (Table) 11/03/23 04:44 Blood Culture - Final Blood 11/07/23 20:51 Gram Stain - Preliminary Sputum
[2023-11-08 17:08] LABS: Glucose,Whole Blood 121 mg/dL (70-110)
--- NOTE | 2023-11-08 21:21 | P.CONS ---
History of Present Illness - Reason for Consult Consult date: 11/08/23 Recurrent fever, prolonged vent Requesting physician: Francia Walters - Chief Complaint Fever x few days - History of Present Illness Patient is a 48-year-old male with a past medical history significant for hypertension coronary disease anxiety current everyday smoker presenting to the hospital more than 2 weeks ago for evaluation of abdominal pain and this pa tient who was initially evaluated [facility] and has been diagnosed with acute pancreatitis secondary chronic alcohol abuse patient has been evaluated multiple data consultant including GI and pulmonary services and the patient got intubated and has been on the ventilator patient could not be e xtubated and did have a tracheostomy on 11/02/2023 and did have EGD and PEG tube placement on 11/06/2023 during this hospital stay patient initially was afebrile he did have a low-grade fever of 100.3 on 10/26/2023 and continued have a low- grade fever on 421 10/27 to 11/01/2023 and did spike a fever of 102.5 degrees following right on 11/03/2023 and is currently running low-grade fever the last few days that has prompted this consultation patient did have a white count of 11.6 today creatinine has been 0.80 procalcitonin was 0.29 liver enzymes has been normal last urine on 11/07/2023 moderate leukocyte esterase 23 WBC cultures pending patient was negative for influenza RSV COVID on admission last chest x- ray diffuse bilateral infiltrates small effusion correlate for CHF otherwise consider pneumonia patient did have a sputum culture positive for MSSA in 2019 4 repeat sputum obtained on 11/07/2023 is currently pending, infectious disease was consulted today after the patient has been in the hospital for 16 days for management of fever with the patient has been spiking since 10/26/2023 Review of Systems Positive points has been mentioned in HPI complete review could not be obtained because of his underlying mental status Past Medical History Past Medical History: Coronary Artery Disease (CAD), Hypertension History of Any Multi-Drug Resistant Organisms: None Reported Past Anesthesia/Blood Transfusion Reactions: Unable to Obtain Past Psychological History: Anxiety Smoking Status: Current every day smoker Past Alcohol Use History: Abuse Past Drug Use History: None Reported Medications and Allergies Home Medications Medication Instructions Recorded Confirmed Type Folic Acid 1 mg PO DAILY 10/23/23 10/23/23 History Pregabalin [Lyrica] 75 mg PO BID 10/23/23 10/23/23 History Rosuvastatin [Crestor] 10 mg PO DAILY 10/23/23 10/23/23 History Sertraline [Zoloft] 100 mg PO DAILY 10/23/23 10/23/23 History Budesonide [Pulmicort] 1 mg INHALATION RT-BID ml 11/27/23 Rx Enoxaparin [Lovenox] 40 mg SQ DAILY each 11/27/23 Rx Formoterol Fumarate [Perforomist] 20 mcg INHALATION RT-BID ml 11/27/23 Rx Ibuprofen [Motrin] 600 mg PO Q6HR PRN tab 11/27/23 Rx Ipratropium-Albuterol Nebulize 3 ml INHALATION RT-Q2H PRN each 11/27/23 Rx [Duoneb 0.5 mg-3 mg/3 ml Soln] Ipratropium-Albuterol Nebulize 3 ml INHALATION RT-QID each 11/27/23 Rx [Duoneb 0.5 mg-3 mg/3 ml Soln] Metoprolol Tartrate [Lopressor] 50 mg PO TID tab 11/27/23 Rx Nicotine 14Mg/24Hr Patch [Habitrol] 1 patch TRANSDERM DAILY patch 11/27/23 Rx Nystatin 100,000 Unit/gm Powd 1 applic TOPICAL BID each 11/27/23 Rx [Mycostatin Powder] Ondansetron [Zofran] 4 mg PO Q8HR PRN #10 tab 11/27/23 Rx Pantoprazole [Protonix] 40 mg PO DAILY #30 tab 11/27/23 Rx QUEtiapine [SEROquel] 25 mg PO DAILY tab 11/27/23 Rx QUEtiapine [SEROquel] 150 mg PO HS tab 11/27/23 Rx Sodium Bicarbonate Tab 650 mg PO BID tab 11/27/23 Rx Thiamine [Vitamin B-1] 100 mg PO DAILY tab 11/27/23 Rx Verapamil [Isoptin] 80 mg PO TID tab 11/27/23 Rx bisacodyL [Dulcolax] 10 mg RECTAL DAILY PRN suppositor 11/27/23 Rx busPIRone HCl [Buspar] 30 mg PO BID tab 11/27/23 Rx chlordiazePOXIDE HCl [Librium] 10 mg PO TID #6 cap 11/27/23 Rx traZODone HCL [Desyrel] 50 mg PO HS PRN tab 11/27/23 Rx Allergies Allergy/AdvReac Type Severity Reaction Status Date / Time No Known Allergies Allergy Verified 10/23/23 09:23 Physical Exam Vitals: Vital Signs Temp Pulse Resp BP Pulse Ox FiO2 11/08/23 14:00 107 H 18 122/88 99 11/08/23 13:00 114 H 33 H 103/72 96 11/08/23 12:00 100.2 F H 99 21 97/66 100 40 11/08/23 11:59 99 11/08/23 11:40 40 11/08/23 11:00 99 21 97/68 100 11/08/23 10:00 99 18 112/81 98 11/08/23 09:14 105 H 11/08/23 09:00 104 H 18 111/79 98 11/08/23 08:59 104 H 40 11/08/23 08:00 96 20 108/68 100 40 11/08/23 07:58 40 11/08/23 07:00 98 20 109/79 99 11/08/23 06:00 100 20 109/78 98 11/08/23 05:00 99.7 F H 101 H 20 125/90 98 40 11/08/23 04:18 109 H 11/08/23 04:05 107 H 11/08/23 04:04 40 11/08/23 04:00 108 H 24 117/85 95 40 11/08/23 03:00 105 H 25 H 95 11/08/23 02:00 101 H 20 108/77 95 11/08/23 01:00 98 20 102/70 98 11/08/23 00:51 98 11/08/23 00:37 40 11/08/23 00:33 96 11/08/23 00:00 99.1 F 98 20 128/87 99 40 11/07/23 23:00 97 20 100/69 100 11/07/23 22:00 102 H 20 94/65 99 11/07/23 21:05 107 H 20 94/65 100 11/07/23 21:00 100 20 125/96 99 11/07/23 20:44 103 H 11/07/23 20:42 40 11/07/23 20:00 100.0 F H 112 H 23 116/83 96 40 11/07/23 19:00 103 H 20 101/75 100 11/07/23 18:00 101 H 20 117/78 100 11/07/23 17:00 115 H 20 114/82 97 11/07/23 16:22 40 11/07/23 16:00 98.9 F 120 H 24 133/95 98 40 11/07/23 15:52 114 H 11/07/23 15:39 114 H Intake and Output 11/08/23 11/08/23 11/08/23 06:59 14:59 22:59 Intake Total 830.784 549.107 Output Total 635 464 Balance 195.784 85.107 Intake: IV 160 160 Sodium Chloride 0.9% 1, 160 160 000 ml @ 10 mls/hr IV . Q24H [facility] Rx#:[id number] Intake, IV Titration 354.784 73.107 Amount Piperacillin-Tazobactam 3 200 .375 gm In Sodium Chloride 0.9% 100 ml @ 25 mls/hr IVPB Q8H [facility] Rx#: [id number] propofoL 1,000 mg In 154.784 73.107 Empty Bag 1 bag @ 15 MCG/ KG/MIN 6.219 mls/hr IV . Q16H5M [facility] Rx#:[id number] Tube Feeding 256 256 Other 60 60 Output: Urine 635 464 Other: Voiding Method Indwelling Catheter # Bowel Movements 0 0 Weight 68 kg 68 kg ABP, PAP, CO, CI - Last 8 Hours Arterial Blood Pressure 115/62 Arterial Blood Pressure 141/78 Arterial Blood Pressure 113/59 Arterial Blood Pressure 111/59 Arterial Blood Pressure 104/55 Arterial Blood Pressure 131/69 Arterial Blood Pressure 120/64 GENERAL DESCRIPTION: Middle-aged male intubated on the vent HEENT: Shows Pallor , no scleral icterus. Oral mucous membrane is dry. NECK: Trachea central, no thyromegaly. LUNGS: Unlabored breathing. Decreased breath sounds at the base HEART: S1, S2, regular rate and rhythm. No loud murmur ABDOMEN: Soft, no tenderness , guarding or rigidity, no organomegaly EXTREMITIES: No edema of feet. SKIN: No rash, no masses palpable. NEUROLOGICAL: The patient is lethargic unable to write any history Results CBC & Chem 7: 11/18/23 13:07 11/18/23 13:07 Labs: Abnormal Lab Results - Last 24 Hours (Table) 11/07/23 11/07/23 11/08/23 Range/Units 21:00 21:24 02:15 WBC (3.8-10.6) k/uL RBC (4.30-5.90) m/uL Hgb (13.0-17.5) gm/dL Hct (39.0-53.0) % Neutrophils # (1.3-7.7) k/uL Lymphocytes # (1.0-4.8) k/uL ABG pCO2 (35-45) mmHg ABG HCO3 (21-25) mmol/L ABG Total CO2 (19-24) mmol/L ABG O2 Saturation (94-97) % Sodium (137-145) mmol/L Carbon Dioxide (22-30) mmol/L Glucose (74-99) mg/dL POC Glucose (mg/dL) 114 H (70-110) mg/dL Procalcitonin 0.29 H (0.02-0.09) ng/mL Urine Protein Trace H (Negative) Urine Ketones 1+ H (Negative) Ur Leukocyte Esterase Moderate H (Negative) Urine WBC 23 H (0-5) /hpf Amorphous Sediment Few H (None) /hpf Urine Bacteria Many H (None) /hpf Hyaline Casts 12 H (0-2) /lpf Urine Mucus Many H (None) /hpf 11/08/23 11/08/23 11/08/23 Range/Units 04:15 04:15 05:35 WBC 11.6 H (3.8-10.6) k/uL RBC 3.12 L (4.30-5.90) m/uL Hgb 9.7 L (13.0-17.5) gm/dL Hct 30.2 L (39.0-53.0) % Neutrophils # 9.7 H (1.3-7.7) k/uL Lymphocytes # 0.7 L (1.0-4.8) k/uL ABG pCO2 46 H (35-45) mmHg ABG HCO3 32 H (21-25) mmol/L ABG Total CO2 34 H (19-24) mmol/L ABG O2 Saturation 98.0 H (94-97) % Sodium 136 L (137-145) mmol/L Carbon Dioxide 31 H (22-30) mmol/L Glucose 128 H (74-99) mg/dL POC Glucose (mg/dL) (70-110) mg/dL Procalcitonin (0.02-0.09) ng/mL Urine Protein (Negative) Urine Ketones (Negative) Ur Leukocyte Esterase (Negative) Urine WBC (0-5) /hpf Amorphous Sediment (None) /hpf Urine Bacteria (None) /hpf Hyaline Casts (0-2) /lpf Urine Mucus (None) /hpf 11/08/23 Range/Units 11:50 WBC (3.8-10.6) k/uL RBC (4.30-5.90) m/uL Hgb (13.0-17.5) gm/dL Hct (39.0-53.0) % Neutrophils # (1.3-7.7) k/uL Lymphocytes # (1.0-4.8) k/uL ABG pCO2 (35-45) mmHg ABG HCO3 (21-25) mmol/L ABG Total CO2 (19-24) mmol/L ABG O2 Saturation (94-97) % Sodium (137-145) mmol/L Carbon Dioxide (22-30) mmol/L Glucose (74-99) mg/dL POC Glucose (mg/dL) 130 H (70-110) mg/dL Procalcitonin (0.02-0.09) ng/mL Urine Protein (Negative) Urine Ketones (Negative) Ur Leukocyte Esterase (Negative) Urine WBC (0-5) /hpf Amorphous Sediment (None) /hpf Urine Bacteria (None) /hpf Hyaline Casts (0-2) /lpf Urine Mucus (None) /hpf Microbiology - Last 24 Hours (Table) 11/03/23 04:44 Blood Culture - Final Blood 11/07/23 20:51 Gram Stain - Preliminary Sputum Assessment and Plan (1) Fever Status: Acute Code(s): R50.9 - FEVER, UNSPECIFIED SNOMED Code(s): 917027022 (2) Leukocytosis Status: Acute Code(s): D72.829 - ELEVATED WHITE BLOOD CELL COUNT, UNSPECIFIED SNOMED Code(s): 487702679 (3) Pneumonia Status: Acute Code(s): J18.9 - PNEUMONIA, UNSPECIFIED ORGANISM SNOMED Code(s): 589083506 Plan: 1patient with low-grade fever in this patient with initial admission to the hospital for acute pancreatitis secondary to his alcoholism patient did get intubated because of respiratory distress and did have a positive sputum culture for MSSA on 10/26/2023 patient failed to be extubated and is s/p trach on 11/02/2023 and PEG tube on 11/06/2023 with the etiology of low-grade fever elevated white count is multifactorial question of pneumonia versus abdominal etiology and the patient was noted to have significant abdominal distention and apparently the patient did not have bowel movement for the last 5 to 6 days per the nursing staff 2-we will recommend obtaining a CT of abdominal pelvis with contrast to make sure no evidence of any worsening pancreatitis/pancreatic pseudocyst 3-we will wait for the repeat blood and sputum culture to finalize 4-continue with the empiric Zosyn 3.375 g. Every 8 hour while waiting for the workup to be completed We will follow on clinical condition and cultures to further adjust medication if needed Thank you for this consultation we will follow the patient along with you Dictation was produced using [employer] dictation software. please excuse any grammatical, word or spelling errors. Time with Patient: Greater than 30
[2023-11-09] LABS: Glucose,Whole Blood 109 mg/dL (70-110)
[2023-11-09 04:59] LABS: HCT 29.6 % (39.0-53.0); HGB 9.2 gm/dL (13.0-17.5); MCHC 31.1 g/dL (31.0-37.0); MCV 96.5 fL (80.0-100.0); Mean Platelet Volume 8.6; Platelet Count 411 k/uL (150-450); RBC 3.06 m/uL (4.30-5.90); RDW 14.3 % (11.5-15.5); WBC 12.4 k/uL (3.8-10.6)
[2023-11-09 05:07] LABS: African American GFR (CKD) >90 (>60 ml/min/1.73 sqM); Anion Gap 5 mmol/L; Blood Urea Nitrogen 15 mg/dL (9-20); Calcium 9.5 mg/dL (8.4-10.2); Carbon Dioxide 31 mmol/L (22-30); Chloride 102 mmol/L (98-107); Glucose 114 mg/dL (74-99); Magnesium 1.9 mg/dL (1.6-2.3); Non-African American GFR(CKD) >90 (>60 ml/min/1.73 sqM); Phosphorus 5.1 mg/dL (2.5-4.5); Potassium 4.1 mmol/L (3.5-5.1); Sodium 138 mmol/L (137-145)
[2023-11-09 06:02] LABS: ABG Base Excess 9.3 mmol/L; ABG HCO3 33 mmol/L (21-25); ABG Oxygen Saturation 98.3 % (94-97); ABG PCO2 47 mmHg (35-45); ABG PH 7.46 (7.35-7.45); ABG PO2 99 mmHg (83-108); ABG TCO2 35 mmol/L (19-24); Allen Test Performed? Yes
[2023-11-09 06:25] LABS: Glucose,Whole Blood 112 mg/dL (70-110)
--- NOTE | 2023-11-09 06:59 | P.PN ---
Subjective Progress Note Date: 11/09/23 Principal diagnosis: Respiratory failure. Patient is a 48-year-old white male with past medical history significant for hypertension, coronary artery disease, current everyday smoker, and alcohol abuse. He was transferred from [facility] 10/22/2023 for acute pancreatitis. He was noted to be intoxicated on arrival to outside facility, with an alcohol level of 34 mg/dL, while at our facility developed impending acute alcohol withdrawal delirium tremens. He required ICU admission for Precedex infusion. Patient is currently lethargic and not a very good historian . After reviewing the medical records from the outside facility, it appears he presented with abdominal pain. He was also noted to have severely elevated lipase and amylase levels. An abdominal and pelvis CT was performed, which identified peripancreatic inflammatory stranding and fluid consistent with acute pancreatitis. No pseudocyst, abscess, or pancreatic necrosis. No gallstones or ductal dilation. There was decreased attenuation of the hepatic parenchyma, suggestive of fatty infiltration. Patient was dehdydrated and noted to have sustained an WILFRIDO. It appears he was fluid resuscitated with 2 L of crystalloid fluid. He was then transferred to [facility]. He was noted to be steffany tated and combative. He had received multiple doses of Ativan, I am told a total of 16 mg. He was also receiving Haldol. Despite this, he had sustained recorded CIWA scores greater than 28, and for this reason he was placed on a Precedex infusion and admitted to the intensive care unit. Most recent CBC from yesterday: WBC count 7.6, hemoglobin 13.9, hematocrit 42, platelets 110. Most recent CMP from yesterday: Sodium 138, potassium 4.4, chloride 108, serum bicarb 19, BUN 18, creatinine 1.13, glucose 94. AST 97, ALT 74, ALP 156, total bilirubin 1. Lipase 11,329 and amylase 1468. Patient is currently lethargic and not making much sense when talking. Unsure of when last drink was. Precedex is infusing at 0.4 mcg/kg/h. He does have bilateral upper extremity soft restraints on, which likely can be discontinued. Blood pressure is noted to be hypertensive, has received a clonidine 0.2 mg patch, which is fallen off and will be replaced. EKG shows normal sinus rhythm without any obvious acute ischemic changes. Patient's pain appears well-managed with current regimen of as needed Dilaudid. He does have some facial grimacing with palpation of the bilateral upper abdomen. Normal saline is infusing at 150 MLS per hour. Currently on room air, in no acute respiratory distress. Afebrile. He has been moved to room 262 in the intensive care unit. Patient was evaluated today on 10/25/2023, remains in the ICU, remains on Precedex at 1 mcg/kg/h. Remains on Cleviprex. Remains on Ativan intermittently and on Haldol. In spite of all of this the patient continues to have episodes of extreme agitation and restlessness. And seems to be delirious. Continues to have a sitter at bedside. His WBC is 7.8 hemoglobin 11.3 basic metabolic profile is normal renal profile is normal however his bicarb is 15, lipase is down to 164 today, it was 1668 yesterday, amylase is down to 112 from 598 yesterday obviously his acute pancreatitis is improving chest x-ray showed no evidence of active disease, minimal pulmonary vascular prominence Reevaluate today on 10/26/2023, patient remains in the ICU, he is on room air, continues to have intermittent episodes of extreme agitation, remains on Precedex at 1.4 mcg/kg/h, remains on Ativan intermittently and Haldol intermittently, nonetheless continues to have episodes of significant agitations. Patient is on the CIWA protocol, he seems to require suctioning of his oropharynx, purulent material is noted, patient does have gag with sucti oning and able to protect his airways. But he has a very poor cough reflex. At any rate patient will need to be on oral medications, and I am recommending a nasogastric tube to be placed today, if the patient continues to do poorly may have to consider intubation and mechanical ventilation, however this will be the last resort. In the meantime I believe the patient will remain on the same medications he is presently on and will remain on the CIWA protocol. Needs definitely close monitoring in the ICU. Patient is purulent secretions I recommended empirically starting the patient on Zosyn. WBC count is 7.4 hemoglobin 11.3 basic metabolic profile is normal except for low potassium of 3.2 renal profile is normal lipase is down to 72 amylase is normal Patient was reevaluated today on 10/27/2023, patient received significant amount of sedation yesterday, and continued to be restless and agitated, at 1 point he desaturated, and he was gurgling with secretions, I was made aware of the clarisa trevino and recommended intubation. Patient was intubated and placed on mechanical ventilation overnight, he is on assist-control rate of 20 tidal volume 400 FiO2 40% and PEEP of 5 ABG showed a pO2 of 131 pCO2 34 pH of 7.30 hence kept on the same ventilator settings. He is on propofol at 65 mcg/kg/min is also 1.9 normal saline at 125 cc/h. Patient is receiving bicarb orally for low bicarb. He is also on Zosyn empirically. Patient is also on enteral feeding. Today I went ahead and placed a right radial arterial line for hemodynamic monitoring and for frequent blood draws. WBC count is 5.9 hemoglobin is 9.4. Basic metabolic profile is normal except for bicarb of 14 patient has a hyperchloremic metabolic none anion gap metabolic acidosis. Chest x-ray showed pulmonary vascular congestion, patient received a dose of Lasix earlier this morning Patient was reevaluated today on 10/28/2023, remains in the ICU, intubated and mechanically ventilated. Patient is on assist-control rate of 20 tidal volume 400 FiO2 40% PEEP of 5 ABG showed a pO2 of 160 pCO2 37 pH of 7.34, I cut down his FiO2 down to 35%. Patient is receiving propofol at 55 mcg/kg/min, he is off norepinephrine, receiving 0.9 normal saline at 125 cc/h. Continues to have intermittent episodes of coffee-ground material in the nasogastric tube, hence nutrition/enteral feeding is presently on hold. Chest x-ray is showing some minimal vascular congestion along with small effusions and atelectasis patient remains on Zosyn empirically, he will receive Lasix 1 dose today 20 mg IV push. Patient continues to have significant amount of secretions he was given a trial off sedation patient was agitated, restless, and again significant amount of secretions were noted in the endotracheal tube, hence will hold on weaning today and extubation. WBC count is 3.8 hemoglobin 8.9. Basic metabolic profile is normal, renal profile is normal Patient was reevaluated today on 10/29/2019, remains in the ICU, intubated and mechanically ventilated. Patient was extremely restless and agitated last night on lower dose of sedation, hence his propofol was increased to as high as 70 mcg/kg/min at present. He is requiring Cleviprex at 10 mg/h for tachycardia. He is on IV fluid 0.9 normal saline at 125 cc/h. Continues to have lots of secretions via the endotracheal tube. Patient is to be restarted back on tube feeding, his positioning of the endotracheal tube and nasogastric tube will be adjusted today. Remains on Zosyn his vent settings are 20/400/35%/5 ABG showed a pO2 of 78 pCO2 34 pH of 7.37 chest x-ray today is noted to show mid and lower lung opacities, slightly increased and small pleural effusions. Patient has atelectasis, and may have a component of fluid overload, will continue intermittent diuresis on this patient, patient did receive 40 mg of Lasix IV push today. Cardiogram on this admission showed good LV function ejection fraction of 55 to 60%, and no evidence of valvular heart disease Progress note dated October 30, 2023. This is a 48-year-old male who was admitted on October 21. He came into the hospital, with alcohol withdrawal syndrome. The patient was intubated on October 25 for respiratory failure. He remains on the ventilator. Settings include volume assist-control, rate 20, tidal volume 400, FiO2 35%, with a PEEP of 5. Blood gases show pO2 of 87, pCO2 of 39, pH is 7.43. The patient is on Cleviprex at 1 mg an hour, propofol at 60 mcg/kg/min, saline at KVO, and saline at 30 cc an hour. The patient continues on Zosyn. The patient's sputum revealed evidence of methicillin sensitive Staph aureus. White count is 5.7, hemoglobin 10.1, hematocrit 31.4, and platelet count was 231,000. Sodium 140, potassium 3.4, chlorides 111, CO2 25, BUN 6, creatinine 0.55. Glucose 103. AST 14. Ammonia level was normal. Chest x-ray shows bilateral interstitial and patchy opacities. Progress note dated October 31, 2023. This is a 48-year-old male who was admitted on October 21. He came into the hospital, with alcohol withdrawal syndrome. The patient was intubated on October 25 for respiratory failure. He remains on the ventilator. Current ventilator settings include volume assist-control, rate 20, tidal volume 400, FiO2 35%, PEEP of 5. Blood gases show pO2 of 88, pCO2 46, pH is 7.46. The patient is getting propofol at 70 mcg/kg/min, Cleviprex at 2 mg an hour, and Nepro tube fe edings at 19 cc an hour, which is goal. Today, we will add amlodipine at 5 mg an hour for better blood pressure control, and the patient continues on Zosyn, for staphylococci in the sputum. White count 7.2, hemoglobin 10.2, hematocrit 31, and platelet count was normal. Sodium 140, potassium 3.9, chlorides 106, CO2 31, BUN 8, creatinine 0.52. Glucose is 120. Calcium 8.8. Patient's chest x-ray shows a stable exam with small bilateral pleural effusions, and adjacent atelectasis. Progress note dated November 01, 2023. 48-year-old male who was admitted on October 21. He came to the hospital with alcohol withdrawal syndrome. The patient was intubated on October 25, for respiratory failure. He remains on the ventilator. Settings include volume assist-control, rate 20, tidal volume 400, FiO2 35%, and PEEP of 5. Blood gases show pO2 74, pCO2 45, pH is 7.47. He is on propofol at 70 mcg/kg/min, and Cleviprex at 4 mg an hour. The patient is getting saline at 50 cc an hour. He is also getting tube feedings with Nepro at 27 cc an hour, which is goal. Residuals were high. We added Reglan 10 mg every 6. In addition, because of failure to wean from mechanical ventilation, the patient will have a surgical consultation for possible tracheostomy and PEG tube placement. Current labs include a white count 6.7, hemoglobin 10, hematocrit 30.9, and a platelet count of 305,000. Sodium 139, potassium 3.9, chlorides 106, CO2 31, BUN 11, creatinine 0.62. Glucose is 109. Calcium is 9.1. Sputum from October 25 was positive for Staphylococcus aureus. Chest x-ray is largely unchanged. Progress note dated November 02, 2023. The patient is seen today in room 262. 48-year-old male admitted on October 21. He came into the hospital with alcohol withdrawal syndrome. He was intubated for respiratory failure on October 26, 2023. He remains on the ventilator. Ventilator settings include volume assist-control, rate 20, tidal volume 400, FiO2 35%, and PEEP of 5. Blood gases show pO2 106, pCO2 49, pH is 7.43. The patient is on saline at 20 cc an hour, propofol at 60 mcg/kg/min, and fentanyl 1 mcg/kg/h. He is getting Zosyn IV. The patient is scheduled to have a possible tracheostomy and PEG tube placement today. White count is 8.1, hemoglobin 9.8, hematocrit 29.3, platelet count normal. Sodium 140, potassium 3.9, chlorides 109, CO2 31, BUN 13, creatinine 0.73. Glucose is 96. Calcium 9.1. Sputum Gram stain from 418, showed evidence of Staphylococcus aureus. Chest x-ray shows b ilateral lung opacities. Chest x-ray is essentially unchanged. Progress note dated November 03, 2023. The patient is seen today again in room 262. The patient remains on mechanical ventilator. Ventilator settings include volume assist-control, rate 20, tidal volume 400, FiO2 35%, PEEP of 5. Blood gases show pO2 of 83, pCO2 48, pH of 7.41. The patient continues on propofol at 60 mcg/kg/min, fentanyl at 1 mcg/kg/h, and saline at 10 cc an hour. Tube feedings are on hold, for possible PEG tube placement today, November 02. The patient did have a tracheostomy performed on November 01. I am going to add Dilaudid 1 mg every 6 hours, to his regimen, to see if we can get him off the fentanyl drip. White count 10.8, hemoglobin 10.6, macro 33, with a normal platelet count. Sodium 137, potassium 4.2, chlorides 104, CO2 30, BUN 14, creatinine 0.74. Albumin is 2.8. Glucose is 76. Sputum on October 25 was positive for Staphylococcus aureus. Chest x-ray shows the presence of a tracheostomy tube. Bilateral infiltrates, appear improved. Progress note dated November 04, 2023. This is a 48-year-old male seen today in room 62. The patient remains on mechanical ventilator. He is on volume assist-control, rate 20, tidal volume 400, FiO2 50%, and PEEP of 5. Blood gases show pO2 of 72, pCO2 47, pH is 7.41. The patient continues on fentanyl and 0.5 mcg/kg/h, propofol at 40 mcg/kg/min, lactated Ringer's at 20 cc an hour. Current laboratory data includes a white count 12.5, hemoglobin 9.9, hematocrit 30.3, and platelet count 357,000. Sodium 135, potassium 4.3, chlorides 102, CO2 28, BUN 19, creatinine 0.64. Glucose is 86. Phosphorus 4.7, calcium 9, magnesium 1.9. Sputum from October 25 shows evidence of Staphylococcus aureus. Chest x-ray shows bilateral small effusions, with adjacent atelectasis. Progress note dated November 05, 2023. 48-year-old male seen again in room 262. The patient remains on mechanical ventilator. Settings include volume assist-control, rate 20, tidal volume 400, FiO2 50%, PEEP of 5. Blood gases show pO2 112, pCO2 45, pH is 7.46. The patient is getting lactated Ringer's at 20 cc an hour, propofol at 10 mcg/kg/min, and tube feedings with Nepro, at 10 cc an hour, with a goal of 19. The patient is currently not on any antibiotics. We will attempt a daily interruption of sedation, and spontaneous breathing trial today, with a CPAP of 5, and pressure support of 5. White count 14, hemoglobin 10.5, hematocrit 31.8, and platelet count 365,000. Sodium 137, potassium 3.7, chlorides 103, CO2 31, BUN 16, creatinine 0.69. Calcium is 9.2. Magnesium 1.9. Sputum from the was positive for Staphylococcus aureus. The patient has completed his anti biotics. Chest x-ray shows bilateral patchy infiltrates, which could be on the basis of fluid, and or pneumonia. On today's evaluation of 11/06/2023, the patient is being seen for a follow-up. This is a 48-year-old male patient with known history of a complicated alcoholism with history of alcoholic pancreatitis and delirium. The patient is post acute hypoxic respiratory failure due to his comorbidities and the patient was difficult to extubate. The patient required mechanical ventilation on 10/26/2023 and ultimately the patient was given a tracheostomy tube on 11/02/2023. He still has an NG tube in place and the patient is going to undergo a PEG tube insertion today. On today's evaluation, the patient is on propofol running at 40 mcg/kg/min. The patient is n.p.o. awaiting PEG tube insertion. There is an NG tube in place. IV fluids are in the form of normal saline at rate of 20 cc an hour. Is on assist-control mode of mechanical ventilation at rate of 20, tidal volume of 400, FiO2 of 50% with a PEEP of 5. His sputum was positive for MSSA and the patient completed a course of IV Zosyn. He has a arterial line in the right upper extremity. Fluid balance is -837 cc over the past 24 hours. Blood gas from today shows a pH of 7.44 with a pCO2 of 47 and pO2 of 94. The white cell count at 9 with a hemoglobin 9.2 and a platelet count of 383. The rest of the electrolytes are all stable. BUN is at 40 with a creatinine of 0.7 and the blood sugar is 93 from this morning. The chest x-ray shows basilar infiltrate and a small effusion otherwise the findings are essentially stable. Tracheostomy tube is in good location. No significant orotracheal secretions at this point in time. No hemodynamic instability. No hypotension. On today's evaluation of 11/07/2023, I am seeing the patient in follow-up in the intensive care unit. The patient remains intubated on the mechanical ventilator. She is currently on propofol running at 10 mcg/kg/min. The patient is on assist-control mode of mechanical ventilation at the rate of 20, tidal volume of 400, FiO2 40% with a PEEP of 5. The blood gas shows a pH of 7.47 with a pCO2 of 38 and a pO2 of 96. The patient is arousable and he is calm and comfortable. Following simple commands and moving all 4 extremities without any limitation. Chest x-ray shows some infiltration in lung bases and small bilateral pleural effusions. Nevertheless, the patient has demonstrated adequate oxygenation. As mentioned, the patient had prolonged respiratory failure and the patient has a #[address] tracheostomy tube in place. PEG tube insertion was not successful yesterday without any issues and the patient is going to be started on enteral feeding for nutritional support. Hemoglobin is at 9.8 with a platelet count of 456. BUN is 14 with a creatinine of 0.7 and a sodium levels at 137. The patient is currently on no antibiotics. The patient has completed his course of IV Zosyn. The patient is on bronchodilators [id number]. The patient has metoprolol for some sinus tachycardia and blood pressure control and a dose of 50 mg p.o. twice daily. He is also taking Seroquel 100 mg twice a day. He is on Isoptin 80 mg p.o. 3 times daily. Surgical wound site over the abdomen is dry clean and intact. On today's evaluation of 11/08/2023, the patient is being seen for a follow-up. This morning, the patient is resting comfortably in bed. No today put the patient on pressure support mode of mechanical ventilation yesterday and the patient was able to tolerate it for a total of 6 hours and following that was placed on assist-control mode, volume cycle. The same is being done today. The patient was on assist-control mode at a rate of 20 with a tidal volume of 400 and a PEEP of 5 with an FiO2 of 40%. The patient has been switched to pressure support of 7 and a PEEP of 5. The patient was also on propofol which has been weaned off and currently is off sedation. Resting comfortably in bed. He underwent a PEG tube insertion. Enteral feeding with Nepro was initiated and the patient is currently at the rate of 32 cc an hour. Abdomen slightly distended. No bowel movement activity yet. The patient remains on Reglan. Fluid balance is ordered of -730 cc over the past 24 hours and the patient is receiving lactated Ringer at rate of 20 cc an hour. WBC count is 11.6 with a hemoglobin 9.7 and a platelet count of 424. Blood gas from this morning showed a pH of 7.45 with a pCO2 of 46 and pO2 of 102. BUN is 16 with a creatinine of 0.8 and a sodium levels at 138. Chest x-ray from today is essentially un changed. The patient continues to have bilateral infiltrates and small effusions, essentially unchanged over the past 1 week. He is arousable. He follows simple commands. No significant agitation at this point in time. Progress note dated November 09, 2023. The patient is seen today in room 262. The patient is currently on pressure support of 7, CPAP of 5, and 40% FiO2. He is getting lactated Ringer's at 20 cc an hour. He is receiving Nepro tube feedings at 32 cc an hour, which is goal. The patient appears much more awake and alert. According to the nurse, the patient had an uneventful night. Current labs include a white count 12.4, hemoglobin 9.2, hematocrit 29.6, and a normal platelet count. A blood gas this morning shows a pO2 of 99, pCO2 of 47, pH is 7.46. Sodium 138, potassium 4.1, chlorides 102, CO2 31, BUN 15, creatinine 0.76. Glucose is 112. Calcium is 9.5. Magnesium is 1.9. Sputum from October 25 was positive for Staphylococcus aureus. Chest x-ray shows a midline tracheostomy tube. The patient has bibasilar infiltrates or atelectasis. Objective - Vital Signs Vital signs: Vital Signs Temp 99.6 F 11/09/23 04:00 Pulse 112 H 11/09/23 06:00 Resp 9 L 11/09/23 06:00 BP 114/78 11/08/23 19:00 Pulse Ox 97 11/09/23 06:00 FiO2 40 11/09/23 04:35 Intake & Output 11/08/23 11/08/23 11/09/23 06:59 18:59 06:59 Intake Total 1068.784 787.107 784 Output Total 935 664 645 Balance 133.784 123.107 139 Weight 68 kg 68 kg 67.5 kg Intake: IV 240 240 240 Sodium Chloride 0.9% 1, 240 240 240 000 ml @ 10 mls/hr IV . Q24H KELVIN Rx#:[id number] Intake, IV Titration 354.784 73.107 100 Amount Piperacillin-Tazobactam 3 200 100 .375 gm In Sodium Chloride 0.9% 100 ml @ 25 mls/hr IVPB Q8H KEL[facility] Rx#: [id number] propofoL 1,000 mg In 154.784 73.107 Empty Bag 1 bag @ 15 MCG/ KG/MIN 6.219 mls/hr IV . [id number] KELVIN Rx#:[id number] Tube Feeding 384 384 384 Other 90 90 60 Output: Urine [phone] Other: Voiding Method Indwelling Catheter Indwelling Catheter # Bowel Movements 0 0 ABP, PAP, CO, CI - Last Documented Arterial Blood Pressure 138/70 - Exam No acute distress, currently sedated, with a midline tracheostomy tube. HEENT examination is grossly unremarkable. Neck supple. Full range of motion. No adenopathy thyromegaly or neck vein distention. Cardiovascular examination reveals regular rhythm rate. S1-S2 normal. No S3 or S4. No discernible murmur noted. Heart sounds are distant. Heart rate 107 b pm. Lungs reveal scattered bilateral rhonchi. No wheezes or crackles. Breath sounds equal. Saturations are 97 %. Abdomen soft, with bowel sounds. PEG tube is noted. Extremities are intact. No cyanosis clubbing or edema. Skin is without rash or lesion. Neurologic examination reveals the patient to be much more awake and alert. - Labs CBC & Chem 7: 11/09/23 04:12 11/09/23 04:12 Labs: Abnormal Lab Results - Last 24 Hours (Table) 11/08/23 11/08/23 11/09/23 Range/Units 11:50 17:06 04:12 WBC 12.4 H (3.8-10.6) k/uL RBC 3.06 L (4.30-5.90) m/uL Hgb 9.2 L (13.0-17.5) gm/dL Hct 29.6 L (39.0-53.0) % ABG pH (7.35-7.45) ABG pCO2 (35-45) mmHg ABG HCO3 (21-25) mmol/L ABG Total CO2 (19-24) mmol/L ABG O2 Saturation (94-97) % Carbon Dioxide (22-30) mmol/L Glucose (74-99) mg/dL POC Glucose (mg/dL) 130 H 121 H (70-110) mg/dL Phosphorus (2.5-4.5) mg/dL 11/09/23 11/09/23 11/09/23 Range/Units 04:12 06:01 06:23 WBC (3.8-10.6) k/uL RBC (4.30-5.90) m/uL Hgb (13.0-17.5) gm/dL Hct (39.0-53.0) % ABG pH 7.46 H (7.35-7.45) ABG pCO2 47 H (35-45) mmHg ABG HCO3 33 H (21-25) mmol/L ABG Total CO2 35 H (19-24) mmol/L ABG O2 Saturation 98.3 H (94-97) % Carbon Dioxide 31 H (22-30) mmol/L Glucose 114 H (74-99) mg/dL POC Glucose (mg/dL) 112 H (70-110) mg/dL Phosphorus 5.1 H (2.5-4.5) mg/dL Microbiology - Last 24 Hours (Table) 11/07/23 21:28 Blood Culture - Preliminary Blood 11/03/23 04:44 Blood Culture - Final Blood 11/07/23 20:51 Gram Stain - Preliminary Sputum Assessment and Plan Assessment: Acute hypoxemic respiratory failure, secondary to acute alcohol withdrawal syndrome, status post intubation and mechanical ventilation, on October 26, 2023. The patient remains intubated on mechanical ventilator. The plan for now is to proceed with a PEG tube insertion and subsequently will assess his readiness to wean off the mechanical ventilator. Chest x-ray showing limited bibasilar pulm infiltrates. Completed his antibiotic course as the patient was found to have MSSA in his sputum. Completed course of IV Zosyn. Currently hemodynamically stable. The patient is currently on the mechanical ventilator, chest x-ray was noted and the blood gas were noted. Overall condition is stable. The patient will be switched to a pressure support mode of mechanical ventilation. The initial trial was done yesterday and the second trial is being done today with a pressure support of 7 and a PEEP of 5. Chest x-ray findings remain unchanged. Prolonged respiratory failure requiring tracheostomy tube insertion and the patient is S/P tracheostomy November 02, 2023. Enteral feeding via PEG tube and a tube was inserted yesterday without any complications. Acute alcohol withdrawal with acute alcohol intoxication. No active signs of encephalopathy or delirium at this point in time and the patient is currently on Seroquel 100 mg p.o. twice a day Acute alcoholic pancreatitis. Hypertensive urgency. Abdominal pain, secondary to pancreatitis. Acute kidney injury. History of alcoholism. Mild transaminitis. History of coronary artery disease. Current everyday smoker. Sinus tachycardia Plan: Plan dated October 30, 2023. The patient continues on Zosyn for his methicillin sensitive Staph aureus in the sputum. Labs, x-rays, medications are reviewed. The patient's overall prognosis remains guarded. The patient has had a daily interruption of sedation, becomes very agitated. We will continue to follow make recommendations along the way. Prognosis is certainly guarded. No additional recommendations at this time. Plan dated October 31, 2023. The patient remains on Zosyn, for his methicillin sensitive Staph aureus infection in the sputum/lung. Labs, x-rays, and medications are all reviewed. The patient's overall condition remains very guarded. If he does not show any progress towards weaning and extubation, by the end of the week, the patient may end up with a tracheostomy tube, and a PEG tube. We will continue to follow make recommendations along the way. Today we added amlodipine at 5 mg/day, to see if we can wean the patient off the Cleviprex. Patient continues on propofol. The patient also continues on Zosyn. Additional recommendations and suggestions are forthcoming. Plan dated November 01, 2023. The patient is seen today in room 262. The patient is on propofol, Cleviprex, and saline. In addition, tube feedings are currently on hold because of high residuals. Reglan will be added to the regimen. In addition, for some additional comfort for the patient, we will add fentanyl drip, at 1 mcg/kg/h, to start. In addition, we asked surgery to see the patient for possible tracheostomy and PEG tube placement. Labs, x-rays, medications are reviewed. The patient's overall prognosis remains extremely guarded. We will continue to follow, make recommendations along the way. The patient continues on Zosyn. Plan dated November 02, 2023. The patient remains on propofol at 60 mcg/kg/min, and fentanyl at 1 mcg/kg/h. The patient also continues on Zosyn. The patient is scheduled for tracheostomy and PEG tube placement today. Blood gases show pO2 of 106, pCO2 of 49, pH is 7.43. Labs, x-rays, and medications are reviewed. We will continue to follow the patient, make recommendations along the way. The patient's overall prognosi s remains very guarded. Plan dated November 03, 2023. The patient is seen today in room 262. The patient had a tracheostomy tube placed yesterday, November 01. The patient is n.p.o., for possible PEG tube placement, today. The patient continues on propofol and fentanyl. We will add some Dilaudid to the regimen, to see if we can wean the fentanyl off completely. Labs, x-rays, and medications are reviewed. Blood gases are reasonable with a pO2 of 83, pCO2 of 48, pH is 7.41. We will continue to follow the patient, and make recommendations along the way. Prognosis is certainly guarded. Plan dated November 04, 2023. The patient's PEG tube will likely be inserted on November 05. We will r esume tube feedings in the interim. In addition, we increased his Dilaudid to 1 mg every 4 hours, to see if we can wean off the fentanyl. Labs, x-rays, and medications are reviewed. We will continue to follow make recommendations along the way. The patient's overall prognosis remains guarded. Hopefully, we will be able to get this patient extubated. Plan dated November 05, 2023. The patient appears to be doing reasonably well. He appears to be stable. He continues on propofol at 10 mcg/kg/min. He is receiving tube feedings. The patient is scheduled to have a PEG tube placed tomorrow. The patient will go for a daily interruption of sedation, and spontaneous breathing trial today, on 5 4 support, 5 with CPAP. The patient has completed his antibiotics. Blood gases show pO2 112, pCO2 45, pH is 7.46. Labs, x-rays, and medications are reviewed. We will continue to follow the patient, and make recommendations along the way. The patient's overall prognosis remains very guarded. Plan dated November 08, 2022. The patient was converted to pressure support and CPAP, with settings of 7 and 5 cm of water respectively, and the patient appears to be doing well. Blood gases are very reasonable. Patient continues on enteral nutrition, at goal, with Nepro, at 32 cc an hour. He is postop day #3, status post PEG tube placement. He continues on Seroquel for delirium and agitation. Currently, his hemodynamics are stable and he does not require any vasopressors. He continues on Lovenox for DVT prophylaxis. He continues on GI prophylaxis. Labs, x-rays, medications are reviewed. The patient is currently being evaluated for transfer to select specialty. Prognosis is guarded. Time with Patient: Greater than 30
--- NOTE | 2023-11-09 07:41 | XR ---
EXAMINATION TYPE: XR chest 1V portable DATE OF EXAM: 11/09/2023 COMPARISON: 11/08/2023 HISTORY: Shortness of breath TECHNIQUE: Single frontal view of the chest is obtained. FINDINGS: Tracheostomy tube stable. There appears to be a gastrostomy tube now noted. Diffuse bilate ral consolidation with small effusion. No pneumothorax. Heart mildly enlarged. Degenerative change of the spine. IMPRESSION: Diffuse bilateral infiltrate and small effusion correlate for CHF otherwise consider pne umonia. Findings stable.
--- NOTE | 2023-11-09 10:15 | P.PN ---
Subjective Progress Note Date: 11/09/23 CHIEF COMPLAINT: Abdominal pain HISTORY OF PRESENT ILLNESS: Patient status post PEG tube placement on 11/06/23. Patient is status post tracheostomy placement on 11/02/23. Patient is tolerating tube feeds. Tube feeds at 32ml/hr. patient reports he had a bowel movement PHYSICAL EXAM: VITAL SIGNS: Reviewed. GENERAL: no acute distress. Neck: trach site clean, dry and intact ABDOMEN: Soft. Nondistended. PEG tube site clean dry and intact ASSESSMENT: 1. Acute hypoxic respiratory failure due to alcohol withdraw syndrome 2. Severe protein calorie malnutrition 3. Acute pancreatitis PLAN: -Continue tube feeds per dietitian recommendations -Patient being evaluated for transfer to select specialty -Continue ICU management -Continue supportive care Physician Enrollment Manager note has been reviewed by physician. Signing provider agrees with the documented findings, assessment, and plan of care. Objective - Vital Signs Vital signs: Vital Signs Temp 99.6 F 11/09/23 04:00 Pulse 110 H 11/09/23 07:00 Resp 14 11/09/23 07:00 BP 114/78 11/08/23 19:00 Pulse Ox 100 11/09/23 07:00 FiO2 40 11/09/23 07:42 Intake & Output 11/08/23 11/09/23 11/09/23 18:59 06:59 18:59 Intake Total 787.107 784 52 Output Total 664 645 50 Balance 123.107 139 2 Weight 68 kg 67.5 kg Intake: IV 240 240 20 Sodium Chloride 0.9% 1, 240 240 20 000 ml @ 10 mls/hr IV . Q24H [facility] Rx#:[id number] Intake, IV Titration 73.107 100 Amount Piperacillin-Tazobactam 3 100 .375 gm In Sodium Chloride 0.9% 100 ml @ 25 mls/hr IVPB Q8H [facility] Rx#: [id number] propofoL 1,000 mg In 73.107 Empty Bag 1 bag @ 15 MCG/ KG/MIN 6.219 mls/hr IV . Q16H5M [facility] Rx#:[id number] Tube Feeding 384 384 32 Other 90 60 Output: Urine 664 645 50 Other: Voiding Method Indwelling Catheter # Bowel Movements 0 ABP, PAP, CO, CI - Last Documented Arterial Blood Pressure 133/67 - Labs CBC & Chem 7: 11/09/23 04:12 11/09/23 04:12 Labs: Abnormal Lab Results - Last 24 Hours (Table) 11/08/23 11/08/23 11/09/23 Range/Units 11:50 17:06 04:12 WBC 12.4 H (3.8-10.6) k/uL RBC 3.06 L (4.30-5.90) m/uL Hgb 9.2 L (13.0-17.5) gm/dL Hct 29.6 L (39.0-53.0) % ABG pH (7.35-7.45) ABG pCO2 (35-45) mmHg ABG HCO3 (21-25) mmol/L ABG Total CO2 (19-24) mmol/L ABG O2 Saturation (94-97) % Carbon Dioxide (22-30) mmol/L Glucose (74-99) mg/dL POC Glucose (mg/dL) 130 H 121 H (70-110) mg/dL Phosphorus (2.5-4.5) mg/dL 11/09/23 11/09/23 11/09/23 Range/Units 04:12 06:01 06:23 WBC (3.8-10.6) k/uL RBC (4.30-5.90) m/uL Hgb (13.0-17.5) gm/dL Hct (39.0-53.0) % ABG pH 7.46 H (7.35-7.45) ABG pCO2 47 H (35-45) mmHg ABG HCO3 33 H (21-25) mmol/L ABG Total CO2 35 H (19-24) mmol/L ABG O2 Saturation 98.3 H (94-97) % Carbon Dioxide 31 H (22-30) mmol/L Glucose 114 H (74-99) mg/dL POC Glucose (mg/dL) 112 H (70-110) mg/dL Phosphorus 5.1 H (2.5-4.5) mg/dL Microbiology - Last 24 Hours (Table) 11/07/23 21:28 Blood Culture - Preliminary Blood 11/03/23 04:44 Blood Culture - Final Blood 11/07/23 20:51 Gram Stain - Preliminary Sputum
[2023-11-09 11:34] LABS: Glucose,Whole Blood 112 mg/dL (70-110)
[2023-11-09] MEDS: IOPAMIDOL CONTRAST (ORAL USE) VIAL PO PRN (14:21)
--- NOTE | 2023-11-09 14:35 | P.PN ---
Subjective Progress Note Date: 11/09/23 48-year-old white male with past medical history significant for hypertension, coronary artery disease, current everyday smoker, and alcohol abuse. He was transferred from [facility] 10/22/2023 for acute pancreatitis. He was noted to be intoxicated on arrival to outside facility, with an alcohol level of 34 mg/dL. He required ICU admission for Precedex infusion. He was also noted to have severely elevated lipase and amylase levels. An abdominal and pelvis CT was performed, which identified peripancreatic inflammatory stranding and fluid consistent with acute pancreatitis. No pseud ocyst, abscess, or pancreatic necrosis. No gallstones or ductal dilation. There was decreased attenuation of the hepatic parenchyma, suggestive of fatty infiltration. Patient was dehdydrated and noted to have sustained an WILFRIDO. It appears he was fluid resuscitated with 2 L of crystalloid fluid. He was then transferred to [facility]. CBC from yesterday: WBC count 7.6, hemoglobin 13.9, hematocrit 42, platelets 110. Most recent CMP from yesterday: Sodium 138, potassium 4.4, chloride 108, serum bicarb 19, BUN 18, creatinine 1.13, glucose 94. AST 97, ALT 74, ALP 156, total bilirubin 1. Lipase 11,329 and amylase 1468. Patient is currently lethargic and not making much sense when talking. Unsure of when last drink was. Precedex is infusing at 0.4 mcg/kg/h. He does have bilateral upper extremity soft restraints on, which likely can be discontinued. Blood pressure is noted to be hypertensive, has received a clonidine 0.2 mg patch, which is fallen off and will be replaced. EKG shows normal sinus rhythm without any obvious acute ischemic changes. Patient's pain appears well-managed with current regimen of as needed Dilaudid. He does have some facial grimacing with palpati on of the bilateral upper abdomen. Normal saline is infusing at 150 MLS per hour. Currently on room air, in no acute respiratory distress. Afebrile. He has been moved to room 262 in the intensive care unit. -- Plan of care was discussed with patient's mother; reports she was told by family noticed that patient is now qualifying for hospice/palliative care -- Patient condition discussed in great detail; dye blender recommendations discussed with patient also; no plan to consult hospice or palliative care at this time 11/04/2023 Patient is seen and evaluated in room at bedside; discussed with nursing staff; no family members present in the room Patient remains on mechanical ventilator. He is on volume assist-control Blood gases show pO2 of 72, pCO2 47, pH is 7.41. Lab review shows white count 12.5, hemoglobin 9.9, hematocrit 30.3, and platelet count 357,000. Sodium 135, potassium 4.3, chlorides 102, CO2 28, BUN 19, creatinine 0.64. Glucose is 86. Phosphorus 4.7, calcium 9, magnesium 1.9. Sputum from October 25 shows evidence of Staphylococcus aureus. Chest x-ray shows bilateral small effusions, with adjacent atelectasis. -- Plan for PEG tube placement on 11/06/2023; and has been placed back on tube feeding -Intensive care service planning to wean off the fentanyl, patient has been placed on Dilaudid 1 mg every 4 hours -- Patient is status post tracheostomy; PEG tube placement rescheduled for Monday due to nonavailability of OR 11/05/2023 Patient is seen and evaluated in room at bedside; patient remains on mechanical ventilator. Settings include volume assist-control, rate 20, tidal volume 400, FiO2 50%, PEEP of 5. -- Blood gases show pO2 112, pCO2 45, pH is 7.46. The patient is getting lactated Ringer's at 20 cc an hour, propofol at 10 mcg/kg/min, and tube feedings with Nepro, at 10 cc an hour, with a goal of 19. - White count 14, hemoglobin 10.5, hematocrit 31.8, and platelet count 365,000. Sodium 137, potassium 3.7, chlorides 103, CO2 31, BUN 16, creatinine 0.69. Calcium is 9.2. Magnesium 1.9. Sputum from the was positive for Staphylococcus aureus. The patient has completed his antibiotics. Chest x-ray shows bilateral patchy infiltrates, which could be on the basis of fluid, and or pneumonia. 11/06/2023 Patient is seen and evaluated in follow-up today remains on mechanical ventilation with an FiO2 of 50% currently being dropped down to 40% with a PEEP of 5. Patient is status post tracheostomy and currently awaiting to receive a PEG tube today. Tube feedings are on hold and will be resumed once cleared per surgery after 24 hours. Patient remains on propofol with no plans of weaning trial today. Patient did have an attempted weaning trial yesterday and per nursing staff did not tolerate very well. Pulmonary dye blender following with plans on resuming weaning trials tomorrow. Patient is afebrile and has completed a course of antibiotics. Follow-up chest x-ray ordered and pending. 11/07/2023 Patient is seen and evaluated in follow-up status post continued on tracheostomy with an FiO2 of 40% PEEP is 5 as well as PEG tube yesterday. Tube feedings to initiate per surgery today and will monitor for tolerance. Chest x-ray today shows diffuse bilateral infiltrates and small effusion correlate for CHF otherwise findings stable from previous. Blood pressure on the higher side and heart rates into the 1 teens, maintained on verapamil and metoprolol. Patient having low-grade temps and white count is mildly elevated we will repeat cultures including obtaining a sputum culture and urinalysis and initiate Zosyn. Procalcitonin ordered as well. Continue aspiration precautions. Patient is awake and following some commands. Patient is mumbling and attempting to talk. Patient denies pain at this time. 11/08/2023 Patient is seen and evaluated in follow-up continues to be in the ICU currently on pressure support on the vent and off propofol attempting to wean completely off. Patient was having low-grade temps and initial sputum culture showing Staph aureus, repeat sputum and blood cultures ordered as patient white count becoming more elevated and remaining and also tachycardia with concerns of possible pneumonia. Chest x-ray shows diffuse bilateral infiltrate and small effusion correlate for CHF otherwise consider pneumonia. Patient having significant secretions requiring frequent suctioning with concerns of pneumonia. Patient is status post tracheostomy and PEG tube and has been started on tube feedings and tolerating thus far. Working on goal. Will consult infectious disease and appreciate input and recommendations as patient was on antibiotics previously with concerns of aspiration pneumonia although having recurrent fevers and newly elevated white count. Potassium on the lower side will replace per protocol. Procalcitonin is 0.29. Will also add COVID/influenza/RSV testing as patient has had prolonged hospitalization. Patient may be a good candidate for select specialties and a referral will be placed. Social work is following closely. 11/09/2023 Patient is seen in follow-up today continues to be in the ICU with multiple medical consultations following. Infectious disease was consulted and appreciate input and recommendations as patient continues to have some tachycardia, low-grade temps, elevated white count. White count today is 12.4 and hemoglobin is stable at 9.2. Patient is continued on Zosyn for now as CT abdomen pelvis is ordered. Patient is reporting severe abdominal pain in the epigastric pancreatic area. Patient was initially admitted and on antibiotics as sputum culture showed Staph aureus. Patient had been monitored off antibiotics although developing fevers and white count. Preliminary repeat sputum culture showing presumptive staph with gram-negative bacilli and will await finalized culture. Patient also reportedly had not had a bowel movement in 5 days and had a large bowel movement yesterday and will continue with bowel regimen as needed. Awaiting CT report to discuss further with infectious danyell thomas and other consultations regarding possible select specialties consult. Propofol is off and will continue with current regimen. Review of systems: Unable to completely obtain as patient continues with the tracheostomy and attempting to speak although very raspy. Patient is more awake and alert today. Physical exam: Gen: This is a 48-year-old male who is currently on tracheostomy pressure support with an FiO2 of 40% and PEEP is 5, well-developed, ill-appearing HEENT: Head is atraumatic, normocephalic. Pupils equal, round. Sclerae is anicteric. NECK: Supple. No JVD. No lymphadenopathy. No thyromegaly. LUNGS: Diminished breath sounds bilaterally otherwise clear to auscultation. T here is some coarse rhonchi noted at the bases. No intercostal retractions. HEART: S1, S2 are muffled ABDOMEN: Soft. Bowel sounds are present. No masses. Extreme tenderness noted on palpation of the pancreatic mid epigastric area. EXTREMITIES: No pedal edema. No calf tenderness. NEUROLOGICAL: Patient is currently awake, alert and oriented x 1-2, continues to be somewhat confused although much more alert than yesterday. Diffusely weak, impulsive Assessment: Acute hypoxemic respiratory failure secondary to alcohol withdrawal symptoms and DTs currently maintained on mechanical ventilator since October 26, 2023, status post tracheostomy, currently FiO2 is 40% on pressure support Leukocytosis with low-grade temps, concern for pneumonia Acute alcohol withdrawal symptoms and DTs Uncontrolled hypertension. Improved now. Acute pancreatitis likely alcohol-related Acute kidney injury likely prerenal improved now. Severe alcohol abuse Mild transaminitis improved History of coronary disease Currently everyday smoker GI and DVT prophylaxis Full code Plan: Patient remains on mechanical ventilator with an FiO2 of 40% and PEEP is 5. Patient is status post tracheostomy on 11/01/2023. Currently working on weaning vent settings and continues on pressure support. Attempting to talk although raspy and soft. Patient did have a few low-grade temps along with the elevated white count above 10 with concerns of pneumonia as noted on the chest x-ray. Will continue Zosyn, blood cultures and sputum culture pending, urinalysis, and procalcitonin was 0.29. And infectious disease following. CT abdomen pelvis ordered and pending. Initial sputum culture showing Staph aureus and was treated with antibiotics. Patient started developing recurrent fevers with a continued white count. Repeat cultures sent and preliminary showing Staph aureus with gram-negative bacilli. Will continue current regimen and discuss further with infectious disease once cultures have finalized. Patient tolerating tube feedings thus far. CT abdomen pelvis ordered and pending and tube feedings will be on hold for this. Evaluating for possible infectious process within the abdomen. Patient continues to report severe mid epigastric, pancreatic tenderness on light palpation. Patient was initially admitted with pancreatitis. Daily weaning trials as per critical care team. Will place consult to select specialties once discussing with other consultations regarding treatment plan moving forward. Currently awaiting CT abdomen pelvis result Overall prognosis is guarded at this time The impression and plan of care has been dictated by Francia Walters, Nurse Practitioner as directed. Dr. Milton MD I have performed a history and examination and MDM of this patient, discussed the same with the dictator, and agree with the dictator's assessment and plan as written ,documented as a scribe. Based on total visit time, I have performed more than 50% of the visit. Objective - Vital Signs Vital signs: Vital Signs Temp 99.6 F 11/09/23 04:00 Pulse 110 H 11/09/23 07:00 Resp 14 11/09/23 07:00 BP 114/78 11/08/23 19:00 Pulse Ox 100 11/09/23 07:00 FiO2 40 11/09/23 07:42 Intake & Output 11/08/23 11/09/23 11/09/23 18:59 06:59 18:59 Intake Total 787.107 784 52 Output Total 664 645 50 Balance 123.107 139 2 Weight 68 kg 67.5 kg Intake: IV 240 240 20 Sodium Chloride 0.9% 1, 240 240 20 000 ml @ 10 mls/hr IV . Q24H [facility] Rx#:[id number] Intake, IV Titration 73.107 100 Amount Piperacillin-Tazobactam 3 100 .375 gm In Sodium Chloride 0.9% 100 ml @ 25 mls/hr IVPB Q8H [facility] Rx#: [id number] propofoL 1,000 mg In 73.107 Empty Bag 1 bag @ 15 MCG/ KG/MIN 6.219 mls/hr IV . Q16H5M [facility] Rx#:[id number] Tube Feeding 384 384 32 Other 90 60 Output: Urine 664 645 50 Other: Voiding Method Indwelling Catheter # Bowel Movements 0 ABP, PAP, CO, CI - Last Documented Arterial Blood Pressure 133/67 - Labs CBC & Chem 7: 11/09/23 04:12 11/09/23 04:12 Labs: Abnormal Lab Results - Last 24 Hours (Table) 11/08/23 11/08/23 11/09/23 Range/Units 11:50 17:06 04:12 WBC 12.4 H (3.8-10.6) k/uL RBC 3.06 L (4.30-5.90) m/uL Hgb 9.2 L (13.0-17.5) gm/dL Hct 29.6 L (39.0-53.0) % ABG pH (7.35-7.45) ABG pCO2 (35-45) mmHg ABG HCO3 (21-25) mmol/L ABG Total CO2 (19-24) mmol/L ABG O2 Saturation (94-97) % Carbon Dioxide (22-30) mmol/L Glucose (74-99) mg/dL POC Glucose (mg/dL) 130 H 121 H (70-110) mg/dL Phosphorus (2.5-4.5) mg/dL 11/09/23 11/09/23 11/09/23 Range/Units 04:12 06:01 06:23 WBC (3.8-10.6) k/uL RBC (4.30-5.90) m/uL Hgb (13.0-17.5) gm/dL Hct (39.0-53.0) % ABG pH 7.46 H (7.35-7.45) ABG pCO2 47 H (35-45) mmHg ABG HCO3 33 H (21-25) mmol/L ABG Total CO2 35 H (19-24) mmol/L ABG O2 Saturation 98.3 H (94-97) % Carbon Dioxide 31 H (22-30) mmol/L Glucose 114 H (74-99) mg/dL POC Glucose (mg/dL) 112 H (70-110) mg/dL Phosphorus 5.1 H (2.5-4.5) mg/dL Microbiology - Last 24 Hours (Table) 11/07/23 21:28 Blood Culture - Preliminary Blood 11/03/23 04:44 Blood Culture - Final Blood 11/07/23 20:51 Gram Stain - Preliminary Sputum
--- NOTE | 2023-11-09 16:16 | CT ---
EXAMINATION TYPE: CT abdomen pelvis w con CT DLP: 918.2 mGycm, Automated exposure control for dose reduction was used. DATE OF EXAM: 11/09/2023 4:06 PM COMPARISON: 10/22/2023 CLINICAL INDICATION:Male, 48 years old with history of Fever, abdominal distention, pancreatitis; Fev er, abdominal distention, pancreatitis TECHNIQUE: Axial CT abdomen pelvis w con;Sagittal and coronal reformats were created on a separate w orkstation. Contrast used:100ml mL of Isovue 370 with IV Contrast, (none if empty) Oral contrast used: with Oral Contrast (none if empty) FINDINGS: LOWER CHEST: Trace bilateral pleural effusions with atelectasis. ABDOMEN LIVER: Unremarkable GALLBLADDER AND BILE DUCTS: Nondistended gallbladder. PANCREAS: Fat stranding changes around the pancreas have decreased. SPLEEN: Unremarkable. ADRENAL GLANDS: Unremarkable. KIDNEYS AND URETERS: No evidence of hydronephrosis or renal calculus. The ureters are unremarkable. Duplex right collecting system. PELVIS BLADDER: Nondistended with Crocker catheter in place. Air in the urinary bladder limiting likely second jonas to Crocker catheter placement. There is mild wall thickening of the urinary bladder with fat strand ing changes around the walsh. REPRODUCTIVE: Unremarkable. ABDOMEN & PELVIS STOMACH AND BOWEL: No evidence of bowel obstruction. PEG tube terminates in the gastric lumen. PERITONEUM/RETROPERITONEUM: No evidence of pneumoperitoneum or free fluid. VASCULATURE: No evidence of aortic aneurysm. MUSCULOSKELETAL: No acute osseous abnormalities LYMPH NODES: No gross evidence for lymphadenopathy. SOFT TISSUE/ABDOMINAL WALL: Unremarkable IMPRESSION: 1. Mild wall thickening with haziness on the urinary bladder correlate with urinalysis for cystitis. 2. Decrease in fat stranding changes around the pancreas compatible with pancreatitis. 3. PEG tube terminates in the gastric lumen. 4. Crocker catheter in appropriate position.. 5. New Trace bilateral pleural effusions.
[2023-11-09] MEDS: LORazepam 1 MG/0.5 ML VIAL IV PRN (20:29)
[2023-11-09 22:40] LABS: Glucose,Whole Blood 100 mg/dL (70-110)
[2023-11-09] MEDS: DEXMEDETOMIDINE/0.9% NACL(PMX) 400 MCG in EMPTY BAG 1 BAG IV SCH (22:48)
[2023-11-10 05:29] LABS: Basophils # (A) 0.1 k/uL (0-0.2); Basophils % (A) 0 %; Eosinophils # (A) 0.4 k/uL (0-0.7); Eosinophils % (A) 3 %; HCT 28.6 % (39.0-53.0); HGB 9.3 gm/dL (13.0-17.5); Hypochromasia Slight; Lymphocytes % (A) 8 %; MCH 31.4 pg (25.0-35.0); MCHC 32.5 g/dL (31.0-37.0); MCV 96.6 fL (80.0-100.0); Mean Platelet Volume 8.6; Monocytes # (A) 0.6 k/uL (0-1.0); Monocytes % (A) 6 %; Neutrophils # (A) 9.2 k/uL (1.3-7.7); Neutrophils % (A) 81 %; Platelet Count 381 k/uL (150-450); RBC 2.96 m/uL (4.30-5.90); RDW 14.1 % (11.5-15.5); WBC 11.4 k/uL (3.8-10.6)
[2023-11-10 05:45] LABS: ALT 23 U/L (4-49); AST 24 U/L (17-59); African American GFR (CKD) >90 (>60 ml/min/1.73 sqM); Albumin 2.8 g/dL (3.5-5.0); Alkaline Phosphatase 81 U/L (38-126); Anion Gap 8 mmol/L; Blood Urea Nitrogen 15 mg/dL (9-20); Calcium 9.6 mg/dL (8.4-10.2); Carbon Dioxide 28 mmol/L (22-30); Chloride 101 mmol/L (98-107); Glucose 97 mg/dL (74-99); Magnesium 1.8 mg/dL (1.6-2.3); Non-African American GFR(CKD) >90 (>60 ml/min/1.73 sqM); Potassium 4.1 mmol/L (3.5-5.1); Sodium 137 mmol/L (137-145); Total Bilirubin 0.5 mg/dL (0.2-1.3); Total Protein 5.7 g/dL (6.3-8.2)
[2023-11-10 05:59] LABS: Glucose,Whole Blood 105 mg/dL (70-110)
[2023-11-10 06:11] LABS: ABG Base Excess 7.7 mmol/L; ABG HCO3 32 mmol/L (21-25); ABG Oxygen Saturation 94.6 % (94-97); ABG PCO2 48 mmHg (35-45); ABG PH 7.43 (7.35-7.45); ABG PO2 67 mmHg (83-108); ABG TCO2 34 mmol/L (19-24); Allen Test Performed? Yes
--- NOTE | 2023-11-10 07:55 | XR ---
EXAMINATION TYPE: XR chest 1V portable DATE OF EXAM: 11/10/2023 COMPARISON: 11/09/2023 HISTORY: Shortness of breath TECHNIQUE: Single frontal view of the chest is obtained. FINDINGS: Tracheostomy tube stable. There appears to be a gastrostomy tube now noted. Diffuse bilate ral consolidation with small effusion. No pneumothorax. Heart mildly enlarged. Degenerative change of the spine. IMPRESSION: Diffuse bilateral infiltrate and small effusion correlate for CHF otherwise consider pne umonia. Findings stable.
[2023-11-10] MEDS ORDERED: VANCOMYCIN IV PER PHARMACY 1 EACH MISC MISCELLANE PRN (09:51)
[2023-11-10 10:58] LABS: Amylase 52 U/L (30-110); Lipase 85 U/L (23-300)
[2023-11-10] MEDS: VANCOMYCIN 1,250 MG in SODIUM CHLORIDE 0.9% 250 ML IVPB SCH (11:32)
--- NOTE | 2023-11-10 13:14 | P.PN ---
Subjective Progress Note Date: 11/09/23 Principal diagnosis: Reason for follow-up is fever/leukocytosis/pneumonia Patient is a 48-year-old male with a past medical history significant for hypertension coronary disease anxiety current everyday smoker presenting to the hospital more than 2 weeks ago for evaluation of abdominal pain, has been diagnosed and treated for acute pancreatitis secondary to chronic alcohol patient failed to be extubated and got trach and PEG has been running a low- grade fever prompting this consultation. On today's evaluation that is 11/09/2023, Patient did have resolution of his fever and is afebrile this morning, patient remains to be intubated on the vent FiO2 at 40%, still having abdominal distention and seem to be complaining of pain and trying to prevent his belly being touched he did have some bowel movement per the nursing staff. Patient white count is slightly up to 12.4 today, creatinine 0.76 CT abdominal pelvis is pending sputum culture currently pending, procalcitonin 0.29 Objective - Vital Signs Vital signs: Vital Signs Temp 99.6 F 11/09/23 04:00 Pulse 110 H 11/09/23 07:00 Resp 14 11/09/23 07:00 BP 114/78 11/08/23 19:00 Pulse Ox 100 11/09/23 07:00 FiO2 40 11/09/23 07:42 Intake & Output 11/08/23 11/09/23 11/09/23 18:59 06:59 18:59 Intake Total 787.107 784 156 Output Total 664 645 250 Balance 123.107 139 -94 Weight 68 kg 67.5 kg Intake: IV 240 240 60 Sodium Chloride 0.9% 1, 240 240 60 000 ml @ 10 mls/hr IV . Q24H [facility] Rx#:[id number] Intake, IV Titration 73.107 100 Amount Piperacillin-Tazobactam 3 100 .375 gm In Sodium Chloride 0.9% 100 ml @ 25 mls/hr IVPB Q8H [facility] Rx#: [id number] propofoL 1,000 mg In 73.107 Empty Bag 1 bag @ 15 MCG/ KG/MIN 6.219 mls/hr IV . Q16H5M [facility] Rx#:[id number] Tube Feeding 384 384 96 Other 90 60 Output: Urine 664 645 250 Other: Voiding Method Indwelling Catheter # Bowel Movements 0 ABP, PAP, CO, CI - Last Documented Arterial Blood Pressure 133/67 - Exam GENERAL DESCRIPTION: Middle-age male lying in bed in no distress RESPIRATORY SYSTEM: Unlabored breathing , decreased breath sounds at bases HEART: S1 S2 regular rate and rhythm , ABDOMEN: Soft , mild distention and tenderness EXTREMITIES: No edema feet - Labs CBC & Chem 7: 11/10/23 05:14 11/10/23 05:07 Labs: Abnormal Lab Results - Last 24 Hours (Table) 11/08/23 11/08/23 11/09/23 Range/Units 11:50 17:06 04:12 WBC 12.4 H (3.8-10.6) k/uL RBC 3.06 L (4.30-5.90) m/uL Hgb 9.2 L (13.0-17.5) gm/dL Hct 29.6 L (39.0-53.0) % ABG pH (7.35-7.45) ABG pCO2 (35-45) mmHg ABG HCO3 (21-25) mmol/L ABG Total CO2 (19-24) mmol/L ABG O2 Saturation (94-97) % Carbon Dioxide (22-30) mmol/L Glucose (74-99) mg/dL POC Glucose (mg/dL) 130 H 121 H (70-110) mg/dL Phosphorus (2.5-4.5) mg/dL 11/09/23 11/09/23 11/09/23 Range/Units 04:12 06:01 06:23 WBC (3.8-10.6) k/uL RBC (4.30-5.90) m/uL Hgb (13.0-17.5) gm/dL Hct (39.0-53.0) % ABG pH 7.46 H (7.35-7.45) ABG pCO2 47 H (35-45) mmHg ABG HCO3 33 H (21-25) mmol/L ABG Total CO2 35 H (19-24) mmol/L ABG O2 Saturation 98.3 H (94-97) % Carbon Dioxide 31 H (22-30) mmol/L Glucose 114 H (74-99) mg/dL POC Glucose (mg/dL) 112 H (70-110) mg/dL Phosphorus 5.1 H (2.5-4.5) mg/dL Microbiology - Last 24 Hours (Table) 11/07/23 21:28 Blood Culture - Preliminary Blood 11/03/23 04:44 Blood Culture - Final Blood 11/07/23 20:51 Gram Stain - Preliminary Sputum Assessment and Plan (1) Fever Current Visit: Yes Status: Acute Code(s): R50.9 - FEVER, UNSPECIFIED SNOMED Code(s): 903103969 (2) Leukocytosis Current Visit: Yes Status: Acute Code(s): D72.829 - ELEVATED WHITE BLOOD CELL COUNT, UNSPECIFIED SNOMED Code(s): 693715036 (3) Pneumonia Current Visit: Yes Status: Acute Code(s): J18.9 - PNEUMONIA, UNSPECIFIED ORGANISM SNOMED Code(s): 875424870 (4) Alcoholic pancreatitis Current Visit: Yes Status: Acute Code(s): K85.20 - ALCOHOL INDUCED ACUTE PANCREATITIS WITHOUT NECROSIS OR INFCT SNOMED Code(s): 971698553 Plan: 1patient with low-grade fever in this patient with initial admission to the hospital for acute pancreatitis secondary to his alcoholism patient did get intubated because of respiratory distress and did have a positive sputum culture for MSSA on 10/26/2023 patient failed to be extubated and is s/p trach on 11/02/2023 and PEG tube on 11/06/2023 with the etiology of low-grade fever elevated white count is multifactorial question of pneumonia versus abdominal etiology and the patient was noted to have significant abdominal distention and apparently the patient did not have bowel movement for the last 5 to 6 days per the nursing staff 2-we are currently waiting for CT of abdominal pelvis with contrast to make sure no evidence of any worsening pancreatitis/pancreatic pseudocyst 3-also awaiting for the repeat blood and sputum culture to finalize 4-patient did have resolution of his fever and will continue with the Zosyn while waiting for the workup to be completed Dictation was produced using [employer] dictation software. please excuse any grammatical, word or spelling errors. Time with Patient: Less than 30
--- NOTE | 2023-11-10 13:16 | P.PN ---
Subjective Progress Note Date: 11/10/23 Principal diagnosis: Reason for follow-up is fever/leukocytosis/pneumonia Patient is a 48-year-old male with a past medical history significant for hypertension coronary disease anxiety current everyday smoker presenting to the hospital more than 2 weeks ago for evaluation of abdominal pain, has been diagnosed and treated for acute pancreatitis secondary to chronic alcohol patient failed to be extubated and got trach and PEG has been running a low- grade fever prompting this consultation. On today's evaluation that is 11/10/2023, patient did spike a fever of 101.7 F this morning patient noted to be tachycardic however hemodynamically stable not requiring any pressor support FiO2 currently at 40% no significant purulent subjective ET or any worsening diarrhea reported by the nursing staff. Patient white count is at 11.4 creatinine 0.73 liver enzymes are normal Objective - Vital Signs Vital signs: Vital Signs Temp 101.7 F H 11/10/23 08:00 Pulse 106 H 11/10/23 11:38 Resp 23 11/10/23 09:00 BP 155/96 11/10/23 09:00 Pulse Ox 100 11/10/23 09:00 FiO2 40 11/10/23 11:25 Intake & Output 11/09/23 11/10/23 11/10/23 18:59 06:59 18:59 Intake Total 470 376.05 22.251 Output Total 870 770 125 Balance -400 -393.95 -102.749 Weight 67.3 kg Intake: IV 260 240 20 Piperacillin-Tazobactam 3 100 .375 gm In Sodium Chloride 0.9% 100 ml @ 25 mls/hr IVPB Q8HR [facility] Rx# :[id number] Sodium Chloride 0.9% 1, 160 240 20 000 ml @ 10 mls/hr IV . Q24H [facility] Rx#:[id number] Intake, IV Titration 4.05 2.251 Amount Dexmedetomidine/0.9% NaCl 4.05 2.251 (Pmx) 400 mcg In Empty Bag 1 bag @ 0.2 MCG/KG/HR 3.375 mls/hr IV .Q24H [facility] Rx#:[id number] Tube Feeding 160 102 Other 50 30 Output: Urine 870 770 125 Other: Voiding Method Indwelling Catheter Indwelling Catheter ABP, PAP, CO, CI - Last Documented Arterial Blood Pressure 134/82 - Exam GENERAL DESCRIPTION: Middle-age male lying in bed in no distress RESPIRATORY SYSTEM: Unlabored breathing , decreased breath sounds at bases HEART: S1 S2 regular rate and rhythm , ABDOMEN: Soft , mild distention and tenderness EXTREMITIES: No edema feet - Labs CBC & Chem 7: 11/10/23 05:14 11/10/23 05:07 Labs: Abnormal Lab Results - Last 24 Hours (Table) 11/10/23 11/10/23 11/10/23 Range/Units 05:07 05:14 06:01 WBC 11.4 H (3.8-10.6) k/uL RBC 2.96 L (4.30-5.90) m/uL Hgb 9.3 L (13.0-17.5) gm/dL Hct 28.6 L (39.0-53.0) % Neutrophils # 9.2 H (1.3-7.7) k/uL ABG pCO2 48 H (35-45) mmHg ABG pO2 67 L (83-108) mmHg ABG HCO3 32 H (21-25) mmol/L ABG Total CO2 34 H (19-24) mmol/L Total Protein 5.7 L (6.3-8.2) g/dL Albumin 2.8 L (3.5-5.0) g/dL Microbiology - Last 24 Hours (Table) 11/07/23 21:28 Blood Culture - Preliminary Blood 11/07/23 20:51 Gram Stain - Preliminary Sputum Sputum Culture - Preliminary Presumptive Staph aureus Gram Neg Bacilli Assessment and Plan (1) Fever Current Visit: Yes Status: Acute Code(s): R50.9 - FEVER, UNSPECIFIED SNO MED Code(s): 844432483 (2) Leukocytosis Current Visit: Yes Status: Acute Code(s): D72.829 - ELEVATED WHITE BLOOD CELL COUNT, UNSPECIFIED SNOMED Code(s): 771621690 (3) Pneumonia Current Visit: Yes Status: Acute Code(s): J18.9 - PNEUMONIA, UNSPECIFIED ORGANISM SNOMED Code(s): 132415054 (4) Alcoholic pancreatitis Current Visit: Yes Status: Acute Code(s): K85.20 - ALCOHOL INDUCED ACUTE PANCREATITIS WITHOUT NECROSIS OR INFCT SNOMED Code(s): 263214887 Plan: 1patient with low-grade fever in this patient with initial admission to the hospital for acute pancreatitis secondary to his alcoholism patient did get intubated because of respiratory distress and did have a positive sputum culture for MSSA on 10/26/2023 patient failed to be extubated and is s/p trach on 11/02/2023 and PEG tube on 11/06/2023 with the etiology of low-grade fever elevated white count is multifactorial question of pneumonia versus abdominal etiology and the patient was noted to have significant abdominal distention and apparently the patient did not have bowel movement for the last 5 to 6 days per the nursing staff 2-patient CT of abdominal pelvis with contrast, did not show any worsening pancreatitis pseudocyst or abscess mild cystitis and effusion 3-patient sputum is growing Staph aureus and gram-negative bacilli, have been unable to use Zyvox as the patient is on Reglan and BuSpar we will discontinue Zosyn start the patient on cefepime to cover for gram-negative and and vancomycin to cover for gram-positive while waiting for the culture to finalize and monitor clinical course closely Dictation was produced using [employer] dictation software. please excuse any grammatical, word or spelling errors. Time with Patient: Less than 30
--- NOTE | 2023-11-10 13:55 | P.PN ---
Subjective Progress Note Date: 11/10/23 Patient is a 48-year-old white male with past medical history significant for hypertension, coronary artery disease, current everyday smoker, and alcohol abuse. He was transferred from [facility] 10/22/2023 for acute pancreatitis. He was noted to be intoxicated on arrival to outside facility, with an alcohol level of 34 mg/dL, while at our facility developed impending acute alcohol withdrawal delirium tremens. He required ICU admission for Precedex infusion. Patient is currently lethargic and not a very good historian. After reviewing the medical records from the outside facility, it appears he presented with abdominal pain. He was also noted to have severely elevated lipase and amylase levels. An abdominal and pelvis CT was performed, which identified peripancreatic inflammatory stranding and fluid consistent with acute pancreatitis. No pseudocyst, abscess, or pancreatic necrosis. No gallstones or ductal dilation. There was decreased attenuation of the hepatic parenchyma, suggestive of fatty infiltration. Patient was dehdydrated and noted to have sustained an WILFRIDO. It appears he was fluid resuscitated with 2 L of crystalloid fluid. He was then transferred to [facility]. He was noted to be agitated and combative. He had received multiple doses of Ativan, I am told a total of 16 mg. He was also receiving Haldol. Despite this, he had sustained recorded CIWA scores greater than 28, and for this reason he was placed on a Precedex infusion and admitted to the intensive care unit. Most recent CBC from yesterday: WBC count 7.6, hemoglobin 13.9, hematocrit 42, platelets 110. Most recent CMP from yesterday: Sodium 138, potassium 4.4, chloride 108, serum bicarb 19, BUN 18, creatinine 1.13, glucose 94. AST 97, ALT 74, ALP 156, total bilirubin 1. Lipase 11,329 and amylase 1468. Patient is currently lethargic and not making much sense when talking. Unsure of when last drink was. Precedex is infusing at 0.4 mcg/kg/h. He does have bilateral upper extremity soft restraints on, which likely can be discontinued. Blood pressure is noted to be hypertensive, has received a clonidine 0.2 mg patch, which is fallen off and will be replaced. EKG shows normal sinus rhythm without any obvious acute ischemic changes. Patient's pain appears well-managed with current regimen of as needed Dilaudid. He does have some facial grimacing with palpation of the bilateral upper abdomen. Normal saline is infusing at 150 MLS per hour. Currently on room air, in no acute respiratory distress. Afebrile. He has been moved to room 262 in the intensive care unit. Patient was evaluated today on 10/25/2023, remains in the ICU, remains on Precedex at 1 mcg/kg/h. Remains on Cleviprex. Remains on Ativan intermittently and on Haldol. In spite of all of this the patient continues to have episodes of extreme agitation and restlessness. And seems to be delirious. Continues to have a sitter at bedside. His WBC is 7.8 hemoglobin 11.3 basic metabolic profile is normal renal profile is normal however his bicarb is 15, lipase is down to 164 today, it was 1668 yesterday, amylase is down to 112 from 598 yesterday obviously his acute pancreatitis is improving chest x-ray showed no evidence of active disease, minimal pulmonary vascular prominence Reevaluate today on 10/26/2023, patient remains in the ICU, he is on room air, continues to have intermittent episodes of extreme agitation, remains on Precedex at 1.4 mcg/kg/h, remains on Ativan intermittently and Haldol intermittently, nonetheless continues to have episodes of significant agitations. Patient is on the CIWA protocol, he seems to require suctioning of his oropharynx, purulent material is noted, patient does have gag with suctioning and able to protect his airways. But he has a very poor cough reflex. At any rate patient will need to be on oral medications, and I am recommending a nasogastric tube to be placed today, if the patient continues to do poorly may have to consider intubation and mechanical ventilation, however this will be the last resort. In the meantime I believe the patient will remain on the same medications he is presently on and will remain on the CIWA protocol. Needs definitely close monitoring in the ICU. Patient is purulent secretions I recommended empirically starting the patient on Zosyn. WBC count is 7.4 hemoglobin 11.3 basic metabolic profile is normal except for low potassium of 3.2 renal profile is normal lipase is down to 72 amylase is normal Patient was reevaluated today on 10/27/2023, patient received significant amount of sedation yesterday, and continued to be restless and agitated, at 1 point he desaturated, and he was gurgling with secretions, I was made aware of the patient and recommended intubation. Patient was intubated and placed on mechanical ventilation overnight, he is on assist-control rate of 20 tidal volume 400 FiO2 40% and PEEP of 5 ABG showed a pO2 of 131 pCO2 34 pH of 7.30 hence kept on the same ventilator settings. He is on propofol at 65 mcg/kg/min is also 1.9 normal saline at 125 cc/h. Patient is receiving bicarb orally for low bicarb. He is also on Zosyn empirically. Patient is also on enteral feeding. Today I went ahead and placed a right radial arterial line for hemodynamic monitoring and for frequent blood draws. WBC count is 5.9 hemoglobin is 9.4. Basic metabolic profile is normal except for bicarb of 14 patient has a hyperchloremic metabolic none anion gap metabolic acidosis. Chest x-ray showed pulmonary vascular congestion, patient received a dose of Lasix earlier this morning Patient was reevaluated today on 10/28/2023, remains in the ICU, intubated and mechanically ventilated. Patient is on assist-control rate of 20 tidal volume 400 FiO2 40% PEEP of 5 ABG showed a pO2 of 160 pCO2 37 pH of 7.34, I cut down his FiO2 down to 35%. Patient is receiving propofol at 55 mcg/kg/min, he is off norepinephrine, receiving 0.9 normal saline at 125 cc/h. Continues to have intermittent episodes of coffee-ground material in the nasogastric tube, hence nutrition/enteral feeding is presently on hold. Chest x-ray is showing some minimal vascular congestion along with small effusions and atelectasis patient remains on Zosyn empirically, he will receive Lasix 1 dose today 20 mg IV push. Patient continues to have significant amount of secretions he was given a trial off sedation patient was agitated, restless, and again significant amount of secretions were noted in the endotracheal tube, hence will hold on weaning today and extubation. WBC count is 3.8 hemoglobin 8.9. Basic metabolic profile is normal, renal profile is normal Patient was reevaluated today on 10/29/2019, remains in the ICU, intubated and mechanically ventilated. Patient was extremely restless and agitated last night on lower dose of sedation, hence his propofol was increased to as high as 70 mcg/kg/min at present. He is requiring Cleviprex at 10 mg/h for tachycardia. He is on IV fluid 0.9 normal saline at 125 cc/h. Continues to have lots of secretions via the endotracheal tube. Patient is to be restarted back on tube feeding, his positioning of the endotracheal tube and nasogastric tube will be adjusted today. Remains on Zosyn his vent settings are 20/400/35%/5 ABG showed a pO2 of 78 pCO2 34 pH of 7.37 chest x-ray today is noted to show mid and lower lung opacities, slightly increased and small pleural effusions. Patient has atelectasis, and may have a component of fluid overload, will continue intermittent diuresis on this patient, patient did receive 40 mg of Lasix IV push today. Cardiogram on this admission showed good LV function ejection fraction of 55 to 60%, and no evidence of valvular heart disease Progress note dated October 30, 2023. This is a 48-year-old male who was admitted on October 21. He came into the hospital, with alcohol withdrawal syndrome. The patient was intubated on October 25 for respiratory failure. He remains on the ventilator. Settings include volume assist-control, rate 20, tidal volume 400, FiO2 35%, with a PEEP of 5. Blood gases show pO2 of 87, pCO2 of 39, pH is 7.43. The patient is on Cleviprex at 1 mg an hour, propofol at 60 mcg/kg/min, saline at KVO, and saline at 30 cc an hour. The patient continues on Zosyn. The patient's sputum revealed evidence of methicillin sensitive Staph aureus. White count is 5.7, hemoglobin 10.1, hematocrit 31.4, and platelet count was 231,000. Sodium 140, potassium 3.4, chlorides 111, CO2 25, BUN 6, creatinine 0.55. Glucose 103. AST 14. Ammonia level was normal. Chest x-ray shows bilateral interstitial and patchy opacities. Progress note dated October 31, 2023. This is a 48-year-old male who was admitted on October 21. He came into the hospital, with alcohol withdrawal syndrome. The patient was intubated on October 25 for respiratory failure. He remains on the ventilator. Current ventilator s ettings include volume assist-control, rate 20, tidal volume 400, FiO2 35%, PEEP of 5. Blood gases show pO2 of 88, pCO2 46, pH is 7.46. The patient is getting propofol at 70 mcg/kg/min, Cleviprex at 2 mg an hour, and Nepro tube feedings at 19 cc an hour, which is goal. Today, we will add amlodipine at 5 mg an hour for better blood pressure control, and the patient continues on Zosyn, for staphy lococci in the sputum. White count 7.2, hemoglobin 10.2, hematocrit 31, and platelet count was normal. Sodium 140, potassium 3.9, chlorides 106, CO2 31, BUN 8, creatinine 0.52. Glucose is 120. Calcium 8.8. Patient's chest x-ray shows a stable exam with small bilateral pleural effusions, and adjacent atelectasis. Progress note dated November 01, 2023. 48-year-old male who was admitted on October 21. He came to the hospital with alcohol withdrawal syndrome. The patient was intubated on October 25, for respiratory failure. He remains on the ventilator. Settings include volume assist-control, rate 20, tidal volume 400, FiO2 35%, and PEEP of 5. Blood gases show pO2 74, pCO2 45, pH is 7.47. He is on propofol at 70 mcg/kg/min, and Cleviprex at 4 mg an hour. The patient is getting saline at 50 cc an hour. He is also getting tube feedings with Nepro at 27 cc an hour, which is goal. Resid uals were high. We added Reglan 10 mg every 6. In addition, because of failure to wean from mechanical ventilation, the patient will have a surgical consultation for possible tracheostomy and PEG tube placement. Current labs include a white count 6.7, hemoglobin 10, hematocrit 30.9, and a platelet count of 305,000. Sodium 139, potassium 3.9, chlorides 106, CO2 31, BUN 11, creatinine 0.62. Glucose is 109. Calcium is 9.1. Sputum from October 25 was positive for Staphylococcus aureus. Chest x-ray is largely unchanged. Progress note dated November 02, 2023. The patient is seen today in room 262. 48-year-old male admitted on October 21. He came into the hospital with alcohol withdrawal syndrome. He was intubated for respiratory failure on October 26, 2023. He remains on the ventilator. Ve ntilator settings include volume assist-control, rate 20, tidal volume 400, FiO2 35%, and PEEP of 5. Blood gases show pO2 106, pCO2 49, pH is 7.43. The patient is on saline at 20 cc an hour, propofol at 60 mcg/kg/min, and fentanyl 1 mcg/kg/h. He is getting Zosyn IV. The patient is scheduled to have a possible tracheostomy and PEG tube placement today. White count is 8.1, hemoglobin 9.8, hematocrit 29.3, platelet count normal. Sodium 140, potassium 3.9, chlorides 109, CO2 31, BUN 13, creatinine 0.73. Glucose is 96. Calcium 9.1. Sputum Gram stain from 418, showed evidence of Staphylococcus aureus. Chest x-ray shows bilateral lung opacities. Chest x-ray is essentially unchanged. Progress note dated November 03, 2023. The patient is seen today again in room 262. The patient remains on mechanical ventilator. Ventilator settings include volume assist-control, rate 20, tidal volume 400, FiO2 35%, PEEP of 5. Blood gases show pO2 of 83, pCO2 48, pH of 7.41. The patient continues on propofol at 60 mcg/kg/min, fentanyl at 1 mcg/kg/h, and saline at 10 cc an hour. Tube feedings are on hold, for possible PEG tube placement today, November 02. The patient did have a tracheostomy perf ormed on November 01. I am going to add Dilaudid 1 mg every 6 hours, to his regimen, to see if we can get him off the fentanyl drip. White count 10.8, hemoglobin 10.6, macro 33, with a normal platelet count. Sodium 137, potassium 4.2, chlorides 104, CO2 30, BUN 14, creatinine 0.74. Albumin is 2.8. Glucose is 76. Sputum on October 25 was positive for Staphylococcus aureus. Chest x-ray shows the presence of a tracheostomy tube. Bilateral infiltrates, appear improved. Progress note dated November 04, 2023. This is a 48-year-old male seen today in room 62. The patient remains on mechanical ventilator. He is on volume assist-control, rate 20, tidal volume 400, FiO2 50%, and PEEP of 5. Blood gases show pO2 of 72, pCO2 47, pH is 7.41. The patient continues on fentanyl and 0.5 mcg/kg/h, propofol at 40 mcg/kg/min, lactated Ringer's at 20 cc an hour. Current laboratory data includes a white count 12.5, hemoglobin 9.9, hematocrit 30.3, and platelet count 357,000. Sodium 135, potassium 4.3, chlorides 102, CO2 28, BUN 19, creatinine 0.64. Glucose is 86. Phosphorus 4.7, calcium 9, magnesium 1.9. Sputum from October 25 shows evidence of Staphylococcus aureus. Chest x-ray shows bilateral small effusions, with adjacent atelectasis. Progress note dated November 05, 2023. 48-year-old male seen again in room 262. The patient remains on mechanical ventilator. Settings include volume assist-control, rate 20, tidal volume 400, FiO2 50%, PEEP of 5. Blood gases show pO2 112, pCO2 45, pH is 7.46. The patient is getting lactated Ringer's at 20 cc an hour, propofol at 10 mcg/kg/min, and tube feedings with Nepro, at 10 cc an hour, with a goal of 19. The patient is currently not on any antibiotics. We will attempt a daily interruption of sedation, and spontaneous breathing trial today, with a CPAP of 5, and pressure support of 5. White count 14, hemoglobin 10.5, hematocrit 31.8, and platelet count 365,000. Sodium 137, potassium 3.7, chlorides 103, CO2 31, BUN 16, creatinine 0.69. Calcium is 9.2. Magnesium 1.9. Sputum from the was positive for Staphylococcus aureus. The patient has completed his antibiotics. Chest x-ray shows bilateral patchy infiltrates, which could be on the basis of fluid, and or pneumonia. On today's evaluation of 11/06/2023, the patient is being seen for a follow-up. This is a 48-year-old male patient with known history of a complicated al coholism with history of alcoholic pancreatitis and delirium. The patient is post acute hypoxic respiratory failure due to his comorbidities and the patient was difficult to extubate. The patient required mechanical ventilation on 10/26/2023 and ultimately the patient was given a tracheostomy tube on 11/02/2023. He still has an NG tube in place and the patient is going to undergo a PEG tube insertion today. On today's evaluation, the patient is on propofol running at 40 mcg/kg/min. The patient is n.p.o. awaiting PEG tube insertion. There is an NG tube in place. IV fluids are in the form of normal saline at rate of 20 cc an hour. Is on assist-control mode of mechanical ventilation at rate of 20, tidal volume of 400, FiO2 of 50% with a PEEP of 5. His sputum was positive for MSSA and the patient completed a course of IV Zosyn. He has a arterial line in the right upper extremity. Fluid balance is -837 cc over the past 24 hours. Blood gas from today shows a pH of 7.44 with a pCO2 of 47 and pO2 of 94. The white cell count at 9 with a hemoglobin 9.2 and a platelet count of 383. The rest of the electrolytes are all stable. BUN is at 40 with a creatinine of 0.7 and the blood sugar is 93 from this morning. The chest x-ray shows basilar infiltrate and a small effusion otherwise the findings are essentially stable. Tracheostomy tube is in good location. No significant orotracheal secretions at this point in time. No hemodynamic instability. No hypotension. On today's evaluation of 11/07/2023, I am seeing the patient in follow-up in the intensive care unit. The patient remains intubated on the mechanical ventilator. She is currently on propofol running at 10 mcg/kg/min. The patient is on assist-control mode of mechanical ventilation at the rate of 20, tidal volume of 400, FiO2 40% with a PEEP of 5. The blood gas shows a pH of 7.47 with a pCO2 of 38 and a pO2 of 96. The patient is arousable and he is calm and comfortable. Following simple commands and moving all 4 extremities without any limitation. Chest x-ray shows some infiltration in lung bases and small bilateral pleural effusions. Nevertheless, the patient has demonstrated adequate oxygenation. As mentioned, the patient had prolonged respiratory failure and the patient has a #8 [address] tracheostomy tube in place. PEG tube insertion was not successful yesterday without any issues and the patient is going to be started on enteral feeding for nutritional support. Hemoglobin is at 9.8 with a platelet count of 456. BUN is 14 with a creatinine of 0.7 and a sodium levels at 137. The patient is currently on no antibiotics. The patient has completed his course of IV Zosyn. The patient is on bronchodilators [id number]. The patient has metoprolol for some sinus tachycardia and blo od pressure control and a dose of 50 mg p.o. twice daily. He is also taking Seroquel 100 mg twice a day. He is on Isoptin 80 mg p.o. 3 times daily. Surgical wound site over the abdomen is dry clean and intact. On today's evaluation of 11/08/2023, the patient is being seen for a follow-up. This morning, the patient is resting comfortably in bed. No today put the patient on pressure support mode of mechanical ventilation yesterday and the patient was able to tolerate it for a total of 6 hours and following that was placed on assist-control mode, volume cycle. The same is being done today. The patient was on assist-control mode at a rate of 20 with a tidal volume of 400 and a PEEP of 5 with an FiO2 of 40%. The patient has been switched to pressure support of 7 and a PEEP of 5. The patient was also on propofol which has been weaned off and currently is off sedation. Resting comfortably in bed. He underwent a PEG tube insertion. Enteral feeding with Nepro was initiated and the patient is currently at the rate of 32 cc an hour. Abdomen slightly distended. No bowel movement activity yet. The patient remains on Reglan. Fluid balance is ordered of -730 cc over the past 24 hours and the patient is receiving lactated Ringer at rate of 20 cc an hour. WBC count is 11.6 with a hemoglobin 9.7 and a platelet count of 424. Blood gas from this morning showed a pH of 7.45 with a pCO2 of 46 and pO2 of 102. BUN is 16 with a creatinine of 0.8 and a sodium levels at 138. Chest x-ray from today is essentially unchanged. The patient continues to have bilateral infiltrates and small effusions, essentially unchanged over the past 1 week. He is arousable. He follows simple commands. No significant agitation at this point in time. On 11/10/2023, I am seeing the patient for a follow-up. This morning, the patient is on a pressure support of 7 and a PEEP of 5 and the patient is able to tolerate spontaneous breathing without any major difficulties. The patient's FiO2 is at 40%. Agitation and restlessness remains an ongoing issue on this patient. The patient accordingly is being treated with Precedex and currently Precedex is running at 0.3 mcg. The patient is also on Seroquel 100 mg p.o. twice a day. The patient will be started on BuSpar in addition. Unfortunately, the patient spiked a temperature of one 1.7. The chest x-ray showing chronic bilateral lower lobe pulmonary filtrates. No significant increase in the orotracheal secretions. The patient does not have any central lines at this point in time. The patient remains on lactated Ringer at 20 cc an hour. If sepsis workup will be initiated accordingly. The patient is on Nepro at a rate of 10 cc an hour. He is on lactated Ringer at rate of 20 cc an hour. The blood work from today shows a WBC count of 11.4 with a hemoglobin 9.3 and a platelet count of 381. BUN is at 15 with a creatinine of 0.7 and sodium levels at 137. Based on his increased abdominal distention, a CAT scan of the abdomen was done that showed mild wall thickening and haziness on the urinary bladder. There was also decreasing fat stranding changes around the pancreas consistent with previous pancreatitis. PEG tube terminates in the gastric lumen. Crocker catheter is in place. There is some trace bilateral lower lobe atelectatic changes and effusions. As such, the patient is able to tolerate the enteral feeding in an effort will be kept at a lower rate of 10 cc an hour. Objective - Vital Signs Vital signs: Vital Signs Temp 101.7 F H 11/10/23 08:00 Pulse 113 H 11/10/23 09:00 Resp 23 11/10/23 09:00 BP 155/96 11/10/23 09:00 Pulse Ox 100 11/10/23 09:00 FiO2 40 11/10/23 08:12 Intake & Output 11/09/23 11/10/23 11/10/23 18:59 06:59 18:59 Intake Total 470 376.05 22.251 Output Total 870 770 125 Balance -400 -393.95 -102.749 Weight 67.3 kg Intake: IV 260 240 20 Piperacillin-Tazobactam 3 100 .375 gm In Sodium Chloride 0.9% 100 ml @ 25 mls/hr IVPB Q8HR [facility] Rx# :[id number] Sodium Chloride 0.9% 1, 160 240 20 000 ml @ 10 mls/hr IV . Q24H [facility] Rx#:[id number] Intake, IV Titration 4.05 2.251 Amount Dexmedetomidine/0.9% NaCl 4.05 2.251 (Pmx) 400 mcg In Empty Bag 1 bag @ 0.2 MCG/KG/HR 3.375 mls/hr IV .Q24H [facility] Rx#:[id number] Tube Feeding 160 102 Other 50 30 Output: Urine 870 770 125 Other: Voiding Method Indwelling Catheter Indwelling Catheter ABP, PAP, CO, CI - Last Documented Arterial Blood Pressure 134/82 - Exam No acute distress, currently sedated, with a midline tracheostomy tube. Calm and comfortable, sedated on propofol. The patient is arousable and awake and following simple commands currently on Precedex Head exam was generally normal. There was no scleral icterus or corneal arcus. Mucous membranes were moist. HEENT examination is grossly unremarkable. The patient has a tracheostomy tube in place. Exit site is dry clean and intact. Neck supple. Full range of motion. No adenopathy thyromegaly or neck vein distention. Cardiovascular examination reveals regular rhythm rate. S1-S2 normal. No S3 or S4. No discernible murmur noted. Heart sounds are distant. Lungs reveal scattered bilateral rhonchi. No wheezes or crackles. Breath sounds equal. Abdominal exam revealed normal bowel sounds. The abdomen was soft, non-tender, and without masses, organomegaly, or appreciable enlargement of the abdominal aorta.. The PEG tube site is dry clean and intact. No significant abdominal tenderness. No significant abdominal distention. Bowel sounds are hypoactive. Extremities are intact. No cyanosis clubbing or edema. Skin is without rash or lesion. Neurologic examination, the patient is sedated, arousable, moving all 4 extremities. There is generalized global weakness in all 4 extremities related to prolonged respiratory failure and mechanical ventilation. - Labs CBC & Chem 7: 11/10/23 05:14 11/10/23 05:07 Labs: Abnormal Lab Results - Last 24 Hours (Table) 11/09/23 11/10/23 11/10/23 Range/Units 11:32 05:07 05:14 WBC 11.4 H (3.8-10.6) k/uL RBC 2.96 L (4.30-5.90) m/uL Hgb 9.3 L (13.0-17.5) gm/dL Hct 28.6 L (39.0-53.0) % Neutrophils # 9.2 H (1.3-7.7) k/uL ABG pCO2 (35-45) mmHg ABG pO2 (83-108) mmHg ABG HCO3 (21-25) mmol/L ABG Total CO2 (19-24) mmol/L POC Glucose (mg/dL) 112 H (70-110) mg/dL Total Protein 5.7 L (6.3-8.2) g/dL Albumin 2.8 L (3.5-5.0) g/dL 11/10/23 Range/Units 06:01 WBC (3.8-10.6) k/uL RBC (4.30-5.90) m/uL Hgb (13.0-17.5) gm/dL Hct (39.0-53.0) % Neutrophils # (1.3-7.7) k/uL ABG pCO2 48 H (35-45) mmHg ABG pO2 67 L (83-108) mmHg ABG HCO3 32 H (21-25) mmol/L ABG Total CO2 34 H (19-24) mmol/L POC Glucose (mg/dL) (70-110) mg/dL Total Protein (6.3-8.2) g/dL Albumin (3.5-5.0) g/dL Microbiology - Last 24 Hours (Table) 11/07/23 21:28 Blood Culture - Preliminary Blood 11/07/23 20:51 Gram Stain - Preliminary Sputum Sputum Culture - Preliminary Presumptive Staph aureus Gram Neg Bacilli Assessment and Plan Plan: Acute hypoxemic respiratory failure, secondary to acute alcohol withdrawal syndrome, status post intubation and mechanical ventilation, on October 26, 2023. The patient remains intubated on mechanical ventilator. The plan for now is to proceed with a PEG tube insertion and subsequently will assess his readiness to wean off the mechanical ventilator. Chest x-ray showing limited bibasilar pulm infiltrates. Completed his antibiotic course as the patient was found to have MSSA in his sputum. Completed course of IV Zosyn. Currently hemodynamically stable. The patient is currently on pressure support of 7 and a PEEP of 5. Chest x-ray findings remain unchanged. Note that the patient has been able to tolerate pressure support mode of mechanical ventilation over the past 24 hours. His breathing remains quite comfortable. Chest x-ray findings are essentially unchanged. Prolonged respiratory failure requiring tracheostomy tube insertion and the patient is S/P tracheostomy November 02, 2023. Enteral feeding via PEG tube and a tube was inserted yesterday without any complications. Acute alcohol withdrawal with acute alcohol intoxication. No active signs of encephalopathy or delirium at this point in time and the patient is currently on Seroquel 100 mg p.o. twice a day Acute fever, currently under investigation. Acute alcoholic pancreatitis, recovered, currently receiving enteral feeding for nutritional support via PEG tube Hypertensive urgency. Abdominal pain, secondary to pancreatitis. Improved Acute kidney injury, recovered History of alcoholism. Mild transaminitis. History of coronary artery disease. Current everyday smoker. Sinus tachycardia Plan: Continue ventilator support, and s patient will be kept on a pressure support mode of mechanical ventilation with a pressure support of 7 and a PEEP of 5 Wean off Precedex Continue Seroquel and add BuSpar Continue enteral feeding for nutritional support, the patient is currently on Nepro at rate of 10 cc an hour will be gradually advancing the enteral feeding as the patient may have a potentially a refeeding syndrome Continuel axatives lactulose 20 g twice a day and Dulcolax suppositories. Recheck amylase and lipase Seroquel for delirium and agitation at a dose of 100 mg p.o. twice a day Continue thiamine and folate No need for pressors for now In terms of his fever, will check a procalcitonin level, will check urine and blood culture. Will add vancomycin in combination with cefepime pending further cultures. Will also obtain a sputum Gram stain and culture. Continue Isoptin and increase the metoprolol to 50 mg p.o. 3 times daily Aggressive physical therapy and passive range of motion Lovenox 40 mg subcu for DVT prophylaxis Continue bronchodilators Consult select specialty Critical care evaluation that was done more than 30 minutes. Time with Patient: Greater than 30
[2023-11-10 13:59] LABS: Glucose,Whole Blood 105 mg/dL (70-110)
--- NOTE | 2023-11-10 14:29 | P.PN ---
Subjective Progress Note Date: 11/10/23 CHIEF COMPLAINT: Abdominal pain HISTORY OF PRESENT ILLNESS: Patient status post PEG tube placement on 11/06/23. Patient is status post tracheostomy placement on 11/02/23. Patient is tolerating tube feeds. Patient had fever of 101.[address] scan reported decrease in fat stranding changes around the pancreas compatible with pancreatitis. PEG tube terminates in the gastric lumen. WBC 11.4 lipase 85 PHYSICAL EXAM: VITAL SIGNS: Reviewed. GENERAL: no acute distress. Neck: trach site clean, dry and intact ABDOMEN: Soft. Nondistended. Nontender. PEG tube site clean dry and intact ASSESSMENT: 1. Acute hypoxic respiratory failure due to alcohol withdraw syndrome 2. Severe protein calorie malnutrition 3. Acute alcoholic pancreatitis PLAN: -Continue tube feeds -Patient being evaluated for transfer to select specialty -Continue ICU management -Continue supportive care Physician Job Coach note has been reviewed by physician. Signing provider agrees with the documented findings, assessment, and plan of care. Objective - Vital Signs Vital signs: Vital Signs Temp 100.2 F H 11/10/23 12:00 Pulse 103 H 11/10/23 13:00 Resp 13 11/10/23 13:00 BP 99/71 11/10/23 13:00 Pulse Ox 99 11/10/23 13:00 FiO2 40 11/10/23 12:00 Intake & Output 11/09/23 11/10/23 11/10/23 18:59 06:59 18:59 Intake Total 470 376.05 472.251 Output Total 870 770 790 Balance -400 -393.95 -317.749 Weight 67.3 kg 67.3 kg Intake: IV 260 240 350 Lactated Ringers 1,000 ml 80 @ 20 mls/hr IV .Q24H [facility] Rx#:[id number] Piperacillin-Tazobactam 3 100 .375 gm In Sodium Chloride 0.9% 100 ml @ 25 mls/hr IVPB Q8HR [facility] Rx# :[id number] Sodium Chloride 0.9% 1, 160 240 20 000 ml @ 10 mls/hr IV . Q24H [facility] Rx#:[id number] Vancomycin 1,250 mg In 250 Sodium Chloride 0.9% 250 ml @ 125 mls/hr IVPB Q8H [facility] Rx#:[id number] Intake, IV Titration 4.05 2.251 Amount Dexmedetomidine/0.9% NaCl 4.05 2.251 (Pmx) 400 mcg In Empty Bag 1 bag @ 0.2 MCG/KG/HR 3.375 mls/hr IV .Q24H [facility] Rx#:[id number] Tube Feeding 160 102 60 Other 50 30 60 Output: Urine 870 770 790 Other: Voiding Method Indwelling Catheter Indwelling Catheter Indwelling Catheter ABP, PAP, CO, CI - Last Documented Arterial Blood Pressure 134/82 - Labs CBC & Chem 7: 11/10/23 05:14 11/10/23 05:07 Labs: Abnormal Lab Results - Last 24 Hours (Table) 11/10/23 11/10/23 11/10/23 Range/Units 05:07 05:14 06:01 WBC 11.4 H (3.8-10.6) k/uL RBC 2.96 L (4.30-5.90) m/uL Hgb 9.3 L (13.0-17.5) gm/dL Hct 28.6 L (39.0-53.0) % Neutrophils # 9.2 H (1.3-7.7) k/uL ABG pCO2 48 H (35-45) mmHg ABG pO2 67 L (83-108) mmHg ABG HCO3 32 H (21-25) mmol/L ABG Total CO2 34 H (19-24) mmol/L Total Protein 5.7 L (6.3-8.2) g/dL Albumin 2.8 L (3.5-5.0) g/dL Microbiology - Last 24 Hours (Table) 11/07/23 21:28 Blood Culture - Preliminary Blood 11/07/23 20:51 Gram Stain - Preliminary Sputum Sputum Culture - Preliminary Presumptive Staph aureus Gram Neg Bacilli
--- NOTE | 2023-11-10 15:51 | P.PN ---
Subjective Progress Note Date: 11/10/23 48-year-old white male with past medical history significant for hypertension, coronary artery disease, current everyday smoker, and alcohol abuse. He was transferred from [facility] 10/22/2023 for acute pancreatitis. He was noted to be intoxicated on arrival to outside facility, with an alcohol level of 34 mg/dL. He required ICU admission for Precedex infusion. He was also noted to have severely elevated lipase and amylase levels. An abdominal and pelvis CT was performed, which identified peripancreatic inflammatory stranding and fluid consistent with acute pancreatitis. No pseud ocyst, abscess, or pancreatic necrosis. No gallstones or ductal dilation. There was decreased attenuation of the hepatic parenchyma, suggestive of fatty infiltration. Patient was dehdydrated and noted to have sustained an WILFRIDO. It appears he was fluid resuscitated with 2 L of crystalloid fluid. He was then transferred to [facility]. CBC from yesterday: WBC count 7.6, hemoglobin 13.9, hematocrit 42, platelets 110. Most recent CMP from yesterday: Sodium 138, potassium 4.4, chloride 108, serum bicarb 19, BUN 18, creatinine 1.13, glucose 94. AST 97, ALT 74, ALP 156, total bilirubin 1. Lipase 11,329 and amylase 1468. Patient is currently lethargic and not making much sense when talking. Unsure of when last drink was. Precedex is infusing at 0.4 mcg/kg/h. He does have bilateral upper extremity soft restraints on, which likely can be discontinued. Blood pressure is noted to be hypertensive, has received a clonidine 0.2 mg patch, which is fallen off and will be replaced. EKG shows normal sinus rhythm without any obvious acute ischemic changes. Patient's pain appears well-managed with current regimen of as needed Dilaudid. He does have some facial grimacing with palpati on of the bilateral upper abdomen. Normal saline is infusing at 150 MLS per hour. Currently on room air, in no acute respiratory distress. Afebrile. He has been moved to room 262 in the intensive care unit. -- Plan of care was discussed with patient's mother; reports she was told by family noticed that patient is now qualifying for hospice/palliative care -- Patient condition discussed in great detail; ob scrub tech recommendations discussed with patient also; no plan to consult hospice or palliative care at this time 11/04/2023 Patient is seen and evaluated in room at bedside; discussed with nursing staff; no family members present in the room Patient remains on mechanical ventilator. He is on volume assist-control Blood gases show pO2 of 72, pCO2 47, pH is 7.41. Lab review shows white count 12.5, hemoglobin 9.9, hematocrit 30.3, and platelet count 357,000. Sodium 135, potassium 4.3, chlorides 102, CO2 28, BUN 19, creatinine 0.64. Glucose is 86. Phosphorus 4.7, calcium 9, magnesium 1.9. Sputum from October 25 shows evidence of Staphylococcus aureus. Chest x-ray shows bilateral small effusions, with adjacent atelectasis. -- Plan for PEG tube placement on 11/06/2023; and has been placed back on tube feeding -Intensive care service planning to wean off the fentanyl, patient has been placed on Dilaudid 1 mg every 4 hours -- Patient is status post tracheostomy; PEG tube placement rescheduled for Monday due to nonavailability of OR 11/05/2023 Patient is seen and evaluated in room at bedside; patient remains on mechanical ventilator. Settings include volume assist-control, rate 20, tidal volume 400, FiO2 50%, PEEP of 5. -- Blood gases show pO2 112, pCO2 45, pH is 7.46. The patient is getting lactated Ringer's at 20 cc an hour, propofol at 10 mcg/kg/min, and tube feedings with Nepro, at 10 cc an hour, with a goal of 19. - White count 14, hemoglobin 10.5, hematocrit 31.8, and platelet count 365,000. Sodium 137, potassium 3.7, chlorides 103, CO2 31, BUN 16, creatinine 0.69. Calcium is 9.2. Magnesium 1.9. Sputum from the was positive for Staphylococcus aureus. The patient has completed his antibiotics. Chest x-ray shows bilateral patchy infiltrates, which could be on the basis of fluid, and or pneumonia. 11/06/2023 Patient is seen and evaluated in follow-up today remains on mechanical ventilation with an FiO2 of 50% currently being dropped down to 40% with a PEEP of 5. Patient is status post tracheostomy and currently awaiting to receive a PEG tube today. Tube feedings are on hold and will be resumed once cleared per surgery after 24 hours. Patient remains on propofol with no plans of weaning trial today. Patient did have an attempted weaning trial yesterday and per nursing staff did not tolerate very well. Pulmonary ob scrub tech following with plans on resuming weaning trials tomorrow. Patient is afebrile and has completed a course of antibiotics. Follow-up chest x-ray ordered and pending. 11/07/2023 Patient is seen and evaluated in follow-up status post continued on tracheostomy with an FiO2 of 40% PEEP is 5 as well as PEG tube yesterday. Tube feedings to initiate per surgery today and will monitor for tolerance. Chest x-ray today shows diffuse bilateral infiltrates and small effusion correlate for CHF otherwise findings stable from previous. Blood pressure on the higher side and heart rates into the 1 teens, maintained on verapamil and metoprolol. Patient having low-grade temps and white count is mildly elevated we will repeat cultures including obtaining a sputum culture and urinalysis and initiate Zosyn. Procalcitonin ordered as well. Continue aspiration precautions. Patient is awake and following some commands. Patient is mumbling and attempting to talk. Patient denies pain at this time. 11/08/2023 Patient is seen and evaluated in follow-up continues to be in the ICU currently on pressure support on the vent and off propofol attempting to wean completely off. Patient was having low-grade temps and initial sputum culture showing Staph aureus, repeat sputum and blood cultures ordered as patient white count becoming more elevated and remaining and also tachycardia with concerns of possible pneumonia. Chest x-ray shows diffuse bilateral infiltrate and small effusion correlate for CHF otherwise consider pneumonia. Patient having significant secretions requiring frequent suctioning with concerns of pneumonia. Patient is status post tracheostomy and PEG tube and has been started on tube feedings and tolerating thus far. Working on goal. Will consult infectious disease and appreciate input and recommendations as patient was on antibiotics previously with concerns of aspiration pneumonia although having recurrent fevers and newly elevated white count. Potassium on the lower side will replace per protocol. Procalcitonin is 0.29. Will also add COVID/influenza/RSV testing as patient has had prolonged hospitalization. Patient may be a good candidate for select specialties and a referral will be placed. Social work is following closely. 11/09/2023 Patient is seen in follow-up today continues to be in the ICU with multiple medical consultations following. Infectious disease was consulted and appreciate input and recommendations as patient continues to have some tachycardia, low-grade temps, elevated white count. White count today is 12.4 and hemoglobin is stable at 9.2. Patient is continued on Zosyn for now as CT abdomen pelvis is ordered. Patient is reporting severe abdominal pain in the epigastric pancreatic area. Patient was initially admitted and on antibiotics as sputum culture showed Staph aureus. Patient had been monitored off antibiotics although developing fevers and white count. Preliminary repeat sputum culture showing presumptive staph with gram-negative bacilli and will await finalized culture. Patient also reportedly had not had a bowel movement in 5 days and had a large bowel movement yesterday and will continue with bowel regimen as needed. Awaiting CT report to discuss further with infectious danyell thomas and other consultations regarding possible select specialties consult. Propofol is off and will continue with current regimen. 11/10/2023 Patient is seen and evaluated in follow-up today with multiple medical consultations following including infectious disease. Patient continues to have fevers underwent CT abdomen with no significant findings noted. Per nursing staff patient continues to be somewhat agitated requiring Precedex as well as continued fevers with preliminary sputum culture repeat showing Staph aureus along with gram-negative bacilli. Patient is being transition to cefepime along with vancomycin and awaiting finalized cultures. Patient is tolerating tube feedings although reduced rate and will continue at a reduced rate for now with close monitoring. Patient continues on pressure support of 7 and PEEP is 5 and FiO2 is 40%.. Chest x-ray showing bilateral lower lobe infiltrates and continues with a mildly elevated white count. Continue weaning trials and adjus tments per pulmonary ob scrub tech. Repeated amylase lipase within normal limits. Continuing attempt to wean Precedex. Review of systems: Unable to completely obtain as patient continues with the tra cheostomy and attempting to speak although very raspy. Patient is more awake and alert today. Physical exam: Gen: This is a 48-year-old male who is currently on tracheostomy pressure support of 7 with an FiO2 of 40% and PEEP is 5, well-developed, ill-appearing, restless HEENT: Head is atraumatic, normocephalic. Pupils equal, round. Sclerae is anicteric. NECK: Supple. No JVD. No lymphadenopathy. No thyromegaly. LUNGS: Diminished breath sounds bilaterally otherwise clear to auscultation. There is some coarse rhonchi noted at the bases. No intercostal retractions. HEART: S1, S2 are muffled ABDOMEN: Soft. Bowel sounds are present. No masses. Continued tenderness noted on palpation of the pancreatic mid epigastric area. EXTREMITIES: No pedal edema. No calf tenderness. NEUROLOGICAL: Patient is currently awake, alert and oriented x 1-2, anxious and somewhat agitated at times, continues to be somewhat confused although much more alert in the last 2 days. Diffusely weak, impulsive Assessment: Acute hypoxemic respiratory failure secondary to alcohol withdrawal symptoms and DTs currently maintained on mechanical ventilator since October 26, 2023, status post tracheostomy, currently FiO2 is 40% on pressure support of 7 and PEEP is 5 Leukocytosis with low-grade temps, concern for pneumonia, sputum culture showing Staph aureus along with Klebsiella pneumonia Status post PEG tube placement Acute alcohol withdrawal symptoms and DTs Uncontrolled hypertension. Improved now. Acute pancreatitis likely alcohol-related, on admission Acute kidney injury likely prerenal improved now. Severe alcohol abuse Mild transaminitis, improved History of coronary disease Currently everyday smoker GI and DVT prophylaxis Full code Plan: Patient remains on mechanical ventilator with an FiO2 of 40% and PEEP is 5. Patient is status post tracheostomy on 11/01/2023. Currently working on weaning vent settings and continues on pressure support of 7. Attempting to talk although raspy and soft. Patient continues to have a few low-grade temps along with the elevated white count above 10 with concerns of pneumonia as noted on the chest x-ray. Infectious disease following and blood cultures thus far negative. Repeat sputum culture showing Staph aureus along with Klebsiella pneumonia. Patient is being transition to cefepime and vancomycin Repeat procalcitonin ordered and pending Patient tolerating tube feedings thus far. CT abdomen pelvis done yesterday shows mild wall thickening with haziness on the urinary bladder correlate with urinalysis for cystitis, decrease in fat stranding changes around the pancreas that was compatible with pancreatitis on admission, PEG tube that terminates in the gastric lumen and Crocker catheter in appropriate position with new trace bilateral pleural effusions. Daily weaning trials as per critical care team. Will place consult to select specialties once discussing with other consultations regarding treatment plan moving forward. Patient will likely require insurance authorization as well. Not quite ready for discharge planning as of yet. Overall prognosis is guarded at this time The impression and plan of care has been dictated by Francia Selena, Nurse Practitioner as directed. Dr. Milton MD I have performed a history and examination and MDM of this patient, discussed the same with the dictator, and agree with the dictator's assessment and plan as written ,documented as a scribe. Based on total visit time, I have performed more than 50% of the visit. Objective - Vital Signs Vital signs: Vital Signs Temp 98.9 F 11/10/23 04:00 Pulse 124 H 11/10/23 07:00 Resp 22 11/10/23 07:00 BP 123/86 11/10/23 07:00 Pulse Ox 96 11/10/23 07:00 FiO2 40 11/10/23 03:48 Intake & Output 11/09/23 11/10/23 11/10/23 18:59 06:59 18:59 Intake Total 470 376.05 20 Output Total 870 770 125 Balance -400 -393.95 -105 Weight 67.3 kg Intake: IV 260 240 20 Piperacillin-Tazobactam 3 100 .375 gm In Sodium Chloride 0.9% 100 ml @ 25 mls/hr IVPB Q8HR [facility] Rx# :[id number] Sodium Chloride 0.9% 1, 160 240 20 000 ml @ 10 mls/hr IV . Q24H [facility] Rx#:[id number] Intake, IV Titration 4.05 Amount Dexmedetomidine/0.9% NaCl 4.05 (Pmx) 400 mcg In Empty Bag 1 bag @ 0.2 MCG/KG/HR 3.375 mls/hr IV .Q24H [facility] Rx#:[id number] Tube Feeding 160 102 Other 50 30 Output: Urine 870 770 125 Other: Voiding Method Indwelling Catheter Indwelling Catheter ABP, PAP, CO, CI - Last Documented Arterial Blood Pressure 134/82 - Labs CBC & Chem 7: 11/10/23 05:14 11/10/23 05:07 Labs: Abnormal Lab Results - Last 24 Hours (Table) 11/09/23 11/10/23 11/10/23 Range/Units 11:32 05:07 05:14 WBC 11.4 H (3.8-10.6) k/uL RBC 2.96 L (4.30-5.90) m/uL Hgb 9.3 L (13.0-17.5) gm/dL Hct 28.6 L (39.0-53.0) % Neutrophils # 9.2 H (1.3-7.7) k/uL ABG pCO2 (35-45) mmHg ABG pO2 (83-108) mmHg ABG HCO3 (21-25) mmol/L ABG Total CO2 (19-24) mmol/L POC Glucose (mg/dL) 112 H (70-110) mg/dL Total Protein 5.7 L (6.3-8.2) g/dL Albumin 2.8 L (3.5-5.0) g/dL 11/10/23 Range/Units 06:01 WBC (3.8-10.6) k/uL RBC (4.30-5.90) m/uL Hgb (13.0-17.5) gm/dL Hct (39.0-53.0) % Neutrophils # (1.3-7.7) k/uL ABG pCO2 48 H (35-45) mmHg ABG pO2 67 L (83-108) mmHg ABG HCO3 32 H (21-25) mmol/L ABG Total CO2 34 H (19-24) mmol/L POC Glucose (mg/dL) (70-110) mg/dL Total Protein (6.3-8.2) g/dL Albumin (3.5-5.0) g/dL Microbiology - Last 24 Hours (Table) 11/07/23 21:28 Blood Culture - Preliminary Blood 11/07/23 20:51 Gram Stain - Preliminary Sputum Sputum Culture - Preliminary Presumptive Staph aureus Gram Neg Bacilli
[2023-11-10] MEDS: CEFEPIME 2 GM in SODIUM CHLORIDE 0.9% 100 ML IVPB SCH (16:39)
[2023-11-10 17:57] LABS: Glucose,Whole Blood 96 mg/dL (70-110)
[2023-11-10] MEDS: busPIRone HCl 10 MG TAB PO SCH (19:57)
[2023-11-10 20:50] LABS: Glucose,Whole Blood 99 mg/dL (70-110)
[2023-11-11 06:08] LABS: African American GFR (CKD) >90 (>60 ml/min/1.73 sqM); Anion Gap 9 mmol/L; Blood Urea Nitrogen 14 mg/dL (9-20); Calcium 9.4 mg/dL (8.4-10.2); Carbon Dioxide 25 mmol/L (22-30); Chloride 103 mmol/L (98-107); Glucose 87 mg/dL (74-99); Non-African American GFR(CKD) >90 (>60 ml/min/1.73 sqM); Potassium 4.3 mmol/L (3.5-5.1); Sodium 137 mmol/L (137-145)
[2023-11-11 06:20] LABS: Basophils # (A) 0.1 k/uL (0-0.2); Basophils % (A) 1 %; Eosinophils # (A) 0.3 k/uL (0-0.7); Eosinophils % (A) 4 %; HCT 27.9 % (39.0-53.0); HGB 8.8 gm/dL (13.0-17.5); Hypochromasia Slight; Lymphocytes % (A) 12 %; MCH 30.7 pg (25.0-35.0); MCHC 31.8 g/dL (31.0-37.0); MCV 96.7 fL (80.0-100.0); Mean Platelet Volume 8.1; Monocytes # (A) 0.4 k/uL (0-1.0); Monocytes % (A) 5 %; Neutrophils # (A) 6.1 k/uL (1.3-7.7); Neutrophils % (A) 77 %; Platelet Count 345 k/uL (150-450); RBC 2.88 m/uL (4.30-5.90); RDW 14.1 % (11.5-15.5); WBC 7.8 k/uL (3.8-10.6)
[2023-11-11] MEDS: LACTULOSE 20 GM/30 ML CUP PO PRN (08:44)
[2023-11-11] MEDS: QUEtiapine 50 MG TAB PO STA (12:32)
[2023-11-11 12:34] LABS: Glucose,Whole Blood 100 mg/dL (70-110)
--- NOTE | 2023-11-11 13:15 | P.PN ---
Subjective Progress Note Date: 11/11/23 Patient is a 48-year-old white male with past medical history significant for hypertension, coronary artery disease, current everyday smoker, and alcohol abuse. He was transferred from [facility] 10/22/2023 for acute pancreatitis. He was noted to be intoxicated on arrival to outside facility, with an alcohol level of 34 mg/dL, while at our facility developed impending acute alcohol withdrawal delirium tremens. He required ICU admission for Precedex infusion. Patient is currently lethargic and not a very good historian. After reviewing the medical records from the outside facility, it appears he presented with abdominal pain. He was also noted to have severely elevated lipase and amylase levels. An abdominal and pelvis CT was performed, which identified peripancreatic inflammatory stranding and fluid consistent with acute pancreatitis. No pseudocyst, abscess, or pancreatic necrosis. No gallstones or ductal dilation. There was decreased attenuation of the hepatic parenchyma, suggestive of fatty infiltration. Patient was dehdydrated and noted to have sustained an WILFRIDO. It appears he was fluid resuscitated with 2 L of crystalloid fluid. He was then transferred to [facility]. He was noted to be agitated and combative. He had received multiple doses of Ativan, I am told a total of 16 mg. He was also receiving Haldol. Despite this, he had sustained recorded CIWA scores greater than 28, and for this reason he was placed on a Precedex infusion and admitted to the intensive care unit. Most recent CBC from yesterday: WBC count 7.6, hemoglobin 13.9, hematocrit 42, platelets 110. Most recent CMP from yesterday: Sodium 138, potassium 4.4, chloride 108, serum bicarb 19, BUN 18, creatinine 1.13, glucose 94. AST 97, ALT 74, ALP 156, total bilirubin 1. Lipase 11,329 and amylase 1468. Patient is currently lethargic and not making much sense when talking. Unsure of when last drink was. Precedex is infusing at 0.4 mcg/kg/h. He does have bilateral upper extremity soft restraints on, which likely can be discontinued. Blood pressure is noted to be hypertensive, has received a clonidine 0.2 mg patch, which is fallen off and will be replaced. EKG shows normal sinus rhythm without any obvious acute ischemic changes. Patient's pain appears well-managed with current regimen of as needed Dilaudid. He does have some facial grimacing with palpation of the bilateral upper abdomen. Normal saline is infusing at 150 MLS per hour. Currently on room air, in no acute respiratory distress. Afebrile. He has been moved to room 262 in the intensive care unit. Patient was evaluated today on 10/25/2023, remains in the ICU, remains on Precedex at 1 mcg/kg/h. Remains on Cleviprex. Remains on Ativan intermittently and on Haldol. In spite of all of this the patient continues to have episodes of extreme agitation and restlessness. And seems to be delirious. Continues to have a sitter at bedside. His WBC is 7.8 hemoglobin 11.3 basic metabolic profile is normal renal profile is normal however his bicarb is 15, lipase is down to 164 today, it was 1668 yesterday, amylase is down to 112 from 598 yesterday obviously his acute pancreatitis is improving chest x-ray showed no evidence of active disease, minimal pulmonary vascular prominence Reevaluate today on 10/26/2023, patient remains in the ICU, he is on room air, continues to have intermittent episodes of extreme agitation, remains on Precedex at 1.4 mcg/kg/h, remains on Ativan intermittently and Haldol intermittently, nonetheless continues to have episodes of significant agitations. Patient is on the CIWA protocol, he seems to require suctioning of his oropharynx, purulent material is noted, patient does have gag with suctioning and able to protect his airways. But he has a very poor cough reflex. At any rate patient will need to be on oral medications, and I am recommending a nasogastric tube to be placed today, if the patient continues to do poorly may have to consider intubation and mechanical ventilation, however this will be the last resort. In the meantime I believe the patient will remain on the same medications he is presently on and will remain on the CIWA protocol. Needs definitely close monitoring in the ICU. Patient is purulent secretions I recommended empirically starting the patient on Zosyn. WBC count is 7.4 hemoglobin 11.3 basic metabolic profile is normal except for low potassium of 3.2 renal profile is normal lipase is down to 72 amylase is normal Patient was reevaluated today on 10/27/2023, patient received significant amount of sedation yesterday, and continued to be restless and agitated, at 1 point he desaturated, and he was gurgling with secretions, I was made aware of the patient and recommended intubation. Patient was intubated and placed on mechanical ventilation overnight, he is on assist-control rate of 20 tidal volume 400 FiO2 40% and PEEP of 5 ABG showed a pO2 of 131 pCO2 34 pH of 7.30 hence kept on the same ventilator settings. He is on propofol at 65 mcg/kg/min is also 1.9 normal saline at 125 cc/h. Patient is receiving bicarb orally for low bicarb. He is also on Zosyn empirically. Patient is also on enteral feeding. Today I went ahead and placed a right radial arterial line for hemodynamic monitoring and for frequent blood draws. WBC count is 5.9 hemoglobin is 9.4. Basic metabolic profile is normal except for bicarb of 14 patient has a hyperchloremic metabolic none anion gap metabolic acidosis. Chest x-ray showed pulmonary vascular congestion, patient received a dose of Lasix earlier this morning Patient was reevaluated today on 10/28/2023, remains in the ICU, intubated and mechanically ventilated. Patient is on assist-control rate of 20 tidal volume 400 FiO2 40% PEEP of 5 ABG showed a pO2 of 160 pCO2 37 pH of 7.34, I cut down his FiO2 down to 35%. Patient is receiving propofol at 55 mcg/kg/min, he is off norepinephrine, receiving 0.9 normal saline at 125 cc/h. Continues to have intermittent episodes of coffee-ground material in the nasogastric tube, hence nutrition/enteral feeding is presently on hold. Chest x-ray is showing some minimal vascular congestion along with small effusions and atelectasis patient remains on Zosyn empirically, he will receive Lasix 1 dose today 20 mg IV push. Patient continues to have significant amount of secretions he was given a trial off sedation patient was agitated, restless, and again significant amount of secretions were noted in the endotracheal tube, hence will hold on weaning today and extubation. WBC count is 3.8 hemoglobin 8.9. Basic metabolic profile is normal, renal profile is normal Patient was reevaluated today on 10/29/2019, remains in the ICU, intubated and mechanically ventilated. Patient was extremely restless and agitated last night on lower dose of sedation, hence his propofol was increased to as high as 70 mcg/kg/min at present. He is requiring Cleviprex at 10 mg/h for tachycardia. He is on IV fluid 0.9 normal saline at 125 cc/h. Continues to have lots of secretions via the endotracheal tube. Patient is to be restarted back on tube feeding, his positioning of the endotracheal tube and nasogastric tube will be adjusted today. Remains on Zosyn his vent settings are 20/400/35%/5 ABG showed a pO2 of 78 pCO2 34 pH of 7.37 chest x-ray today is noted to show mid and lower lung opacities, slightly increased and small pleural effusions. Patient has atelectasis, and may have a component of fluid overload, will continue intermittent diuresis on this patient, patient did receive 40 mg of Lasix IV push today. Cardiogram on this admission showed good LV function ejection fraction of 55 to 60%, and no evidence of valvular heart disease Progress note dated October 30, 2023. This is a 48-year-old male who was admitted on October 21. He came into the hospital, with alcohol withdrawal syndrome. The patient was intubated on October 25 for respiratory failure. He remains on the ventilator. Settings include volume assist-control, rate 20, tidal volume 400, FiO2 35%, with a PEEP of 5. Blood gases show pO2 of 87, pCO2 of 39, pH is 7.43. The patient is on Cleviprex at 1 mg an hour, propofol at 60 mcg/kg/min, saline at KVO, and saline at 30 cc an hour. The patient continues on Zosyn. The patient's sputum revealed evidence of methicillin sensitive Staph aureus. White count is 5.7, hemoglobin 10.1, hematocrit 31.4, and platelet count was 231,000. Sodium 140, potassium 3.4, chlorides 111, CO2 25, BUN 6, creatinine 0.55. Glucose 103. AST 14. Ammonia level was normal. Chest x-ray shows bilateral interstitial and patchy opacities. Progress note dated October 31, 2023. This is a 48-year-old male who was admitted on October 21. He came into the hospital, with alcohol withdrawal syndrome. The patient was intubated on October 25 for respiratory failure. He remains on the ventilator. Current ventilator s ettings include volume assist-control, rate 20, tidal volume 400, FiO2 35%, PEEP of 5. Blood gases show pO2 of 88, pCO2 46, pH is 7.46. The patient is getting propofol at 70 mcg/kg/min, Cleviprex at 2 mg an hour, and Nepro tube feedings at 19 cc an hour, which is goal. Today, we will add amlodipine at 5 mg an hour for better blood pressure control, and the patient continues on Zosyn, for staphy lococci in the sputum. White count 7.2, hemoglobin 10.2, hematocrit 31, and platelet count was normal. Sodium 140, potassium 3.9, chlorides 106, CO2 31, BUN 8, creatinine 0.52. Glucose is 120. Calcium 8.8. Patient's chest x-ray shows a stable exam with small bilateral pleural effusions, and adjacent atelectasis. Progress note dated November 01, 2023. 48-year-old male who was admitted on October 21. He came to the hospital with alcohol withdrawal syndrome. The patient was intubated on October 25, for respiratory failure. He remains on the ventilator. Settings include volume assist-control, rate 20, tidal volume 400, FiO2 35%, and PEEP of 5. Blood gases show pO2 74, pCO2 45, pH is 7.47. He is on propofol at 70 mcg/kg/min, and Cleviprex at 4 mg an hour. The patient is getting saline at 50 cc an hour. He is also getting tube feedings with Nepro at 27 cc an hour, which is goal. Resid uals were high. We added Reglan 10 mg every 6. In addition, because of failure to wean from mechanical ventilation, the patient will have a surgical consultation for possible tracheostomy and PEG tube placement. Current labs include a white count 6.7, hemoglobin 10, hematocrit 30.9, and a platelet count of 305,000. Sodium 139, potassium 3.9, chlorides 106, CO2 31, BUN 11, creatinine 0.62. Glucose is 109. Calcium is 9.1. Sputum from October 25 was positive for Staphylococcus aureus. Chest x-ray is largely unchanged. Progress note dated November 02, 2023. The patient is seen today in room 262. 48-year-old male admitted on October 21. He came into the hospital with alcohol withdrawal syndrome. He was intubated for respiratory failure on October 26, 2023. He remains on the ventilator. Ve ntilator settings include volume assist-control, rate 20, tidal volume 400, FiO2 35%, and PEEP of 5. Blood gases show pO2 106, pCO2 49, pH is 7.43. The patient is on saline at 20 cc an hour, propofol at 60 mcg/kg/min, and fentanyl 1 mcg/kg/h. He is getting Zosyn IV. The patient is scheduled to have a possible tracheostomy and PEG tube placement today. White count is 8.1, hemoglobin 9.8, hematocrit 29.3, platelet count normal. Sodium 140, potassium 3.9, chlorides 109, CO2 31, BUN 13, creatinine 0.73. Glucose is 96. Calcium 9.1. Sputum Gram stain from 418, showed evidence of Staphylococcus aureus. Chest x-ray shows bilateral lung opacities. Chest x-ray is essentially unchanged. Progress note dated November 03, 2023. The patient is seen today again in room 262. The patient remains on mechanical ventilator. Ventilator settings include volume assist-control, rate 20, tidal volume 400, FiO2 35%, PEEP of 5. Blood gases show pO2 of 83, pCO2 48, pH of 7.41. The patient continues on propofol at 60 mcg/kg/min, fentanyl at 1 mcg/kg/h, and saline at 10 cc an hour. Tube feedings are on hold, for possible PEG tube placement today, November 02. The patient did have a tracheostomy perf ormed on November 01. I am going to add Dilaudid 1 mg every 6 hours, to his regimen, to see if we can get him off the fentanyl drip. White count 10.8, hemoglobin 10.6, macro 33, with a normal platelet count. Sodium 137, potassium 4.2, chlorides 104, CO2 30, BUN 14, creatinine 0.74. Albumin is 2.8. Glucose is 76. Sputum on October 25 was positive for Staphylococcus aureus. Chest x-ray shows the presence of a tracheostomy tube. Bilateral infiltrates, appear improved. Progress note dated November 04, 2023. This is a 48-year-old male seen today in room 62. The patient remains on mechanical ventilator. He is on volume assist-control, rate 20, tidal volume 400, FiO2 50%, and PEEP of 5. Blood gases show pO2 of 72, pCO2 47, pH is 7.41. The patient continues on fentanyl and 0.5 mcg/kg/h, propofol at 40 mcg/kg/min, lactated Ringer's at 20 cc an hour. Current laboratory data includes a white count 12.5, hemoglobin 9.9, hematocrit 30.3, and platelet count 357,000. Sodium 135, potassium 4.3, chlorides 102, CO2 28, BUN 19, creatinine 0.64. Glucose is 86. Phosphorus 4.7, calcium 9, magnesium 1.9. Sputum from October 25 shows evidence of Staphylococcus aureus. Chest x-ray shows bilateral small effusions, with adjacent atelectasis. Progress note dated November 05, 2023. 48-year-old male seen again in room 262. The patient remains on mechanical ventilator. Settings include volume assist-control, rate 20, tidal volume 400, FiO2 50%, PEEP of 5. Blood gases show pO2 112, pCO2 45, pH is 7.46. The patient is getting lactated Ringer's at 20 cc an hour, propofol at 10 mcg/kg/min, and tube feedings with Nepro, at 10 cc an hour, with a goal of 19. The patient is currently not on any antibiotics. We will attempt a daily interruption of sedation, and spontaneous breathing trial today, with a CPAP of 5, and pressure support of 5. White count 14, hemoglobin 10.5, hematocrit 31.8, and platelet count 365,000. Sodium 137, potassium 3.7, chlorides 103, CO2 31, BUN 16, creatinine 0.69. Calcium is 9.2. Magnesium 1.9. Sputum from the was positive for Staphylococcus aureus. The patient has completed his antibiotics. Chest x-ray shows bilateral patchy infiltrates, which could be on the basis of fluid, and or pneumonia. On today's evaluation of 11/06/2023, the patient is being seen for a follow-up. This is a 48-year-old male patient with known history of a complicated al coholism with history of alcoholic pancreatitis and delirium. The patient is post acute hypoxic respiratory failure due to his comorbidities and the patient was difficult to extubate. The patient required mechanical ventilation on 10/26/2023 and ultimately the patient was given a tracheostomy tube on 11/02/2023. He still has an NG tube in place and the patient is going to undergo a PEG tube insertion today. On today's evaluation, the patient is on propofol running at 40 mcg/kg/min. The patient is n.p.o. awaiting PEG tube insertion. There is an NG tube in place. IV fluids are in the form of normal saline at rate of 20 cc an hour. Is on assist-control mode of mechanical ventilation at rate of 20, tidal volume of 400, FiO2 of 50% with a PEEP of 5. His sputum was positive for MSSA and the patient completed a course of IV Zosyn. He has a arterial line in the right upper extremity. Fluid balance is -837 cc over the past 24 hours. Blood gas from today shows a pH of 7.44 with a pCO2 of 47 and pO2 of 94. The white cell count at 9 with a hemoglobin 9.2 and a platelet count of 383. The rest of the electrolytes are all stable. BUN is at 40 with a creatinine of 0.7 and the blood sugar is 93 from this morning. The chest x-ray shows basilar infiltrate and a small effusion otherwise the findings are essentially stable. Tracheostomy tube is in good location. No significant orotracheal secretions at this point in time. No hemodynamic instability. No hypotension. On today's evaluation of 11/07/2023, I am seeing the patient in follow-up in the intensive care unit. The patient remains intubated on the mechanical ventilator. She is currently on propofol running at 10 mcg/kg/min. The patient is on assist-control mode of mechanical ventilation at the rate of 20, tidal volume of 400, FiO2 40% with a PEEP of 5. The blood gas shows a pH of 7.47 with a pCO2 of 38 and a pO2 of 96. The patient is arousable and he is calm and comfortable. Following simple commands and moving all 4 extremities without any limitation. Chest x-ray shows some infiltration in lung bases and small bilateral pleural effusions. Nevertheless, the patient has demonstrated adequate oxygenation. As mentioned, the patient had prolonged respiratory failure and the patient has a #8 [place] tracheostomy tube in place. PEG tube insertion was not successful yesterday without any issues and the patient is going to be started on enteral feeding for nutritional support. Hemoglobin is at 9.8 with a platelet count of 456. BUN is 14 with a creatinine of 0.7 and a sodium levels at 137. The patient is currently on no antibiotics. The patient has completed his course of IV Zosyn. The patient is on bronchodilators [id number]. The patient has metoprolol for some sinus tachycardia and blo od pressure control and a dose of 50 mg p.o. twice daily. He is also taking Seroquel 100 mg twice a day. He is on Isoptin 80 mg p.o. 3 times daily. Surgical wound site over the abdomen is dry clean and intact. On today's evaluation of 11/08/2023, the patient is being seen for a follow-up. This morning, the patient is resting comfortably in bed. No today put the patient on pressure support mode of mechanical ventilation yesterday and the patient was able to tolerate it for a total of 6 hours and following that was placed on assist-control mode, volume cycle. The same is being done today. The patient was on assist-control mode at a rate of 20 with a tidal volume of 400 and a PEEP of 5 with an FiO2 of 40%. The patient has been switched to pressure support of 7 and a PEEP of 5. The patient was also on propofol which has been weaned off and currently is off sedation. Resting comfortably in bed. He underwent a PEG tube insertion. Enteral feeding with Nepro was initiated and the patient is currently at the rate of 32 cc an hour. Abdomen slightly distended. No bowel movement activity yet. The patient remains on Reglan. Fluid balance is ordered of -730 cc over the past 24 hours and the patient is receiving lactated Ringer at rate of 20 cc an hour. WBC count is 11.6 with a hemoglobin 9.7 and a platelet count of 424. Blood gas from this morning showed a pH of 7.45 with a pCO2 of 46 and pO2 of 102. BUN is 16 with a creatinine of 0.8 and a sodium levels at 138. Chest x-ray from today is essentially unchanged. The patient continues to have bilateral infiltrates and small effusions, essentially unchanged over the past 1 week. He is arousable. He follows simple commands. No significant agitation at this point in time. On 11/10/2023, I am seeing the patient for a follow-up. This morning, the patient is on a pressure support of 7 and a PEEP of 5 and the patient is able to tolerate spontaneous breathing without any major difficulties. The patient's FiO2 is at 40%. Agitation and restlessness remains an ongoing issue on this patient. The patient accordingly is being treated with Precedex and currently Precedex is running at 0.3 mcg. The patient is also on Seroquel 100 mg p.o. twice a day. The patient will be started on BuSpar in addition. Unfortunately, the patient spiked a temperature of one 1.7. The chest x-ray showing chronic bilateral lower lobe pulmonary filtrates. No significant increase in the orotracheal secretions. The patient does not have any central lines at this point in time. The patient remains on lactated Ringer at 20 cc an hour. If sepsis workup will be initiated accordingly. The patient is on Nepro at a rate of 10 cc an hour. He is on lactated Ringer at rate of 20 cc an hour. The blood work from today shows a WBC count of 11.4 with a hemoglobin 9.3 and a platelet count of 381. BUN is at 15 with a creatinine of 0.7 and sodium levels at 137. Based on his increased abdominal distention, a CAT scan of the abdomen was done that showed mild wall thickening and haziness on the urinary bladder. There was also decreasing fat stranding changes around the pancreas consistent with previous pancreatitis. PEG tube terminates in the gastric lumen. Crocker catheter is in place. There is some trace bilateral lower lobe atelectatic changes and effusions. As such, the patient is able to tolerate the enteral feeding in an effort will be kept at a lower rate of 10 cc an hour. 11/11/2023, the patient is being seen for a follow-up. The patient remains on a pressure support mode of mechanical ventilation with a pressure support of 7 and a PEEP of 5. Overnight, he was placed on Precedex and this morning and this is running at 0.3 mcg/kg/h. Otherwise, the patient is calm and comfortable and is not having any major respiratory distress. No significant orotracheal secretions. Enteral feeding is running at the rate of 10 cc an hour and the patient is currently on vital AF. No complaints. Amylase lipase levels are not elevated at this point. Distention. No fever this morning. Note that based on his yesterday's fever episode, the patient was placed on a broad-spectrum antibiotics and was started on vancomycin and cefepime. Repeat sputum Gram stain and culture still pending for now. Nevertheless, since then, the patient has been afebrile.. Hemodynamically stable without any significant hypotension. Blood work shows a WBC count of 7.8 with a hemoglobin 8.8 and a platelet count of 345 and electrolytes are all stable with a BUN of 14 and a creatinine of 0.6 and a sodium level of 137. Patient is on Seroquel 150 mg p.o. twice daily. The patient is also on BuSpar 30 mg p.o. twice daily. Ativan on as-needed basis. Precedex is being weaned off. Objective - Vital Signs Vital signs: Vital Signs Temp 98.2 F 11/11/23 07:00 Pulse 75 11/11/23 09:55 Resp 15 11/11/23 09:00 BP 119/72 11/11/23 09:00 Pulse Ox 99 11/11/23 09:00 FiO2 40 11/11/23 09:33 Intake & Output 11/10/23 11/11/23 11/11/23 18:59 06:59 18:59 Intake Total 970.815 348.283 227.489 Output Total 1200 825 475 Balance -229.185 -476.717 -247.511 Weight 67.3 kg 68 kg Intake: IV 740 240 100 Cefepime 2 gm In Sodium 100 100 Chloride 0.9% 100 ml @ 25 mls/hr IVPB Q8HR [facility] Rx# :[id number] Lactated Ringers 1,000 ml 120 240 @ 20 mls/hr IV .Q24H [facility] Rx#:[id number] Sodium Chloride 0.9% 1, 20 000 ml @ 10 mls/hr IV . Q24H [facility] Rx#:[id number] Vancomycin 1,250 mg In 500 Sodium Chloride 0.9% 250 ml @ 125 mls/hr IVPB Q8H [facility] Rx#:[id number] Intake, IV Titration 20.815 18.283 77.489 Amount Dexmedetomidine/0.9% NaCl 20.815 18.283 77.489 (Pmx) 400 mcg In Empty Bag 1 bag @ 0.2 MCG/KG/HR 3.375 mls/hr IV .Q24H [facility] Rx#:[id number] Tube Feeding 120 90 20 Other 90 30 Output: Urine 1200 825 475 Other: Voiding Method Indwelling Catheter Indwelling Catheter # Bowel Movements 0 ABP, PAP, CO, CI - Last Documented Arterial Blood Pressure 134/82 - Exam No acute distress, currently sedated, with a midline tracheostomy tube. Calm a nd comfortable, sedated on propofol. The patient is arousable and awake and following simple commands currently on Precedex Head exam was generally normal. There was no scleral icterus or corneal arcus. Mucous membranes were moist. HEENT examination is grossly unremarkable. The patient has a tracheostomy tube in place. Exit site is dry clean and intact. Neck supple. Full range of motion. No adenopathy thyromegaly or neck vein distention. Cardiovascular examination reveals regular rhythm rate. S1-S2 normal. No S3 or S4. No discernible murmur noted. Heart sounds are distant. Lungs reveal scattered bilateral rhonchi. No wheezes or crackles. Breath sounds equal. Abdominal exam revealed normal bowel sounds. The abdomen was soft, non-tender, and without masses, organomegaly, or appreciable enlargement of the abdominal aorta.. The PEG tube site is dry clean and intact. No significant abdominal tenderness. No significant abdominal distention. Bowel sounds are hypoactive. Extremities are intact. No cyanosis clubbing or edema. Skin is without rash or lesion. Neurologic examination, the patient is sedated, arousable, moving all 4 extremities. There is generalized global weakness in all 4 extremities related to prolonged respiratory failure and mechanical ventilation. - Labs CBC & Chem 7: 11/11/23 06:07 11/11/23 05:08 Labs: Abnormal Lab Results - Last 24 Hours (Table) 11/10/23 11/11/23 11/11/23 Range/Units 10:17 05:08 06:07 RBC 2.88 L (4.30-5.90) m/uL Hgb 8.8 L (13.0-17.5) gm/dL Hct 27.9 L (39.0-53.0) % Creatinine 0.63 L (0.66-1.25) mg/dL Procalcitonin 0.24 H (0.02-0.09) ng/mL Microbiology - Last 24 Hours (Table) 11/07/23 21:28 Blood Culture - Preliminary Blood 11/07/23 20:51 Gram Stain - Final Sputum Sputum Culture - Final Staphylococcus aureus Klebsiella pneumoniae Assessment and Plan Plan: Acute hypoxemic respiratory failure, secondary to acute alcohol withdrawal syndrome, status post intubation and mechanical ventilation, on October 26, 2023. The patient remains intubated on mechanical ventilator. The plan for now is to proceed with a PEG tube insertion and subsequently will assess his readiness to wean off the mechanical ventilator. Chest x-ray showing limited bibasilar pulm infiltrates. Completed his antibiotic course as the patient was found to have MSSA in his sputum. Completed course of IV Zosyn. Currently hemodynamically stable. The patient is currently on pressure support of 7 and a PEEP of 5. Chest x-ray findings remain unchanged. Note that the patient has been able to tolerate pressure support mode of mechanical ventilation over the past 48 hours Prolonged respiratory failure requiring tracheostomy tube insertion and the patient is S/P tracheostomy November 02, 2023. Enteral feeding via PEG tube and a tube was inserted yesterday without any complications. The patient is currently on vital AF at rate of 10 cc an hour Acute alcohol withdrawal with acute alcohol intoxication. No active signs of encephalopathy or delirium at this point in time and the patient is currently on Seroquel 150 and the patient was also started on BuSpar mg p.o. twice a day for increased anxiety Acute fever, currently under investigation. Covered empirically with a combination of cefepime and vancomycin pending further cultures Acute alcoholic pancreatitis, recovered, currently receiving enteral feeding for nutritional support via PEG tube, tolerating enteral feeding for nutritional support Hypertensive urgency. Abdominal pain, secondary to pancreatitis. Improved Acute kidney injury, recovered History of alcoholism. Mild transaminitis. History of coronary artery disease. Current everyday smoker. Sinus tachycardia Plan: Continue ventilator support, and s patient will be kept on a pressure support mode of mechanical ventilation with a pressure support of 7 and a PEEP of 5, will try to switch this patient to a trach collar today. At this point, he is still on pressure support of 7 and a PEEP of 5 with an FiO2 of 40%. Will drop the FiO2 down to 28%. Wean off Precedex Continue Seroquel and BuSpar at the same doses Continue enteral feeding for nutritional support, the patient is currently on Nepro at rate of 10 cc an hour will be gradually advancing the enteral feeding as the patient may have a potentially a refeeding syndrome, gradual increase the enteral feedings to 20 cc an hour Continuel lactulose 20 g twice a day and Dulcolax suppositories. Recheck amylase and lipase were not elevated Continue thiamine and folate No need for pressors for now Currently afebrile and the patient is undergoing a fever workup cultures are still pending for the patient is currently on a combination of cefepime and vancomycin Continue Isoptin and increase the metoprolol to 50 mg p.o. 3 times daily Aggressive physical therapy and passive range of motion Lovenox 40 mg subcu for DVT prophylaxis Continue bronchodilators Consult select specialty Critical care evaluation that was done more than 30 minutes. Time with Patient: Greater than 30
--- NOTE | 2023-11-11 13:17 | P.PN ---
Subjective Progress Note Date: 11/11/23 Principal diagnosis: Reason for follow-up is fever/leukocytosis/pneumonia Patient is a 48-year-old male with a past medical history significant for hypertension coronary disease anxiety current everyday smoker presenting to the hospital more than 2 weeks ago for evaluation of abdominal pain, has been diagnosed and treated for acute pancreatitis secondary to chronic alcohol patient failed to be extubated and got trach and PEG has been running a low- grade fever prompting this consultation. On today's evaluation that is 11/11/2023,the patient did have resolution of his fever and the patient is afebrile this morning patient is hemodynamically stable not requiring any pressor support FiO2 28%, still complaining of Abdominal discomfort but is very hard to communicate with his trach. Patient white count is normalized to 7.8 creatinine 0.63 sputum is growing Klebsiella and MSSA Objective - Vital Signs Vital signs: Vital Signs Temp 99.0 F 11/11/23 12:00 Pulse 88 11/11/23 12:00 Resp 15 11/11/23 12:00 BP 104/87 11/11/23 12:00 Pulse Ox 100 11/11/23 12:00 FiO2 40 11/11/23 09:33 Intake & Output 11/10/23 11/11/23 11/11/23 18:59 06:59 18:59 Intake Total 970.815 348.283 227.489 Output Total 1200 825 475 Balance -229.185 -476.717 -247.511 Weight 67.3 kg 68 kg Intake: IV 740 240 100 Cefepime 2 gm In Sodium 100 100 Chloride 0.9% 100 ml @ 25 mls/hr IVPB Q8HR [facility] Rx# :[id number] Lactated Ringers 1,000 ml 120 240 @ 20 mls/hr IV .Q24H [facility] Rx#:[id number] Sodium Chloride 0.9% 1, 20 000 ml @ 10 mls/hr IV . Q24H [facility] Rx#:[id number] Vancomycin 1,250 mg In 500 Sodium Chloride 0.9% 250 ml @ 125 mls/hr IVPB Q8H [facility] Rx#:[id number] Intake, IV Titration 20.815 18.283 77.489 Amount Dexmedetomidine/0.9% NaCl 20.815 18.283 77.489 (Pmx) 400 mcg In Empty Bag 1 bag @ 0.2 MCG/KG/HR 3.375 mls/hr IV .Q24H [facility] Rx#:[id number] Tube Feeding 120 90 20 Other 90 30 Output: Urine 1200 825 475 Other: Voiding Method Indwelling Catheter Indwelling Catheter # Bowel Movements 0 ABP, PAP, CO, CI - Last Documented Arterial Blood Pressure 134/82 - Exam GENERAL DESCRIPTION: Middle-age male lying in bed in no distress RESPIRATORY SYSTEM: Unlabored breathing , decreased breath sounds at bases HEART: S1 S2 regular rate and rhythm , ABDOMEN: Soft , mild distention and tenderness EXTREMITIES: No edema feet - Labs CBC & Chem 7: 11/11/23 06:07 11/11/23 05:08 Labs: Abnormal Lab Results - Last 24 Hours (Table) 11/10/23 11/11/23 11/11/23 Range/Units 10:17 05:08 06:07 RBC 2.88 L (4.30-5.90) m/uL Hgb 8.8 L (13.0-17.5) gm/dL Hct 27.9 L (39.0-53.0) % Creatinine 0.63 L (0.66-1.25) mg/dL Procalcitonin 0.24 H (0.02-0.09) ng/mL Microbiology - Last 24 Hours (Table) 11/07/23 21:28 Blood Culture - Preliminary Blood 11/07/23 20:51 Gram Stain - Final Sputum Sputum Culture - Final Staphylococcus aureus Klebsiella pneumoniae Assessment and Plan (1) Fever Current Visit: Yes Status: Acute Code(s): R50.9 - FEVER, UNSPECIFIED SNOMED Code(s): 857506894 (2) Leukocytosis Current Visit: Yes Status: Acute Code(s): D72.829 - ELEVATED WHITE BLOOD CELL COUNT, UNSPECIFIED SNOMED Code(s): 905602417 (3) Pneumonia Current Visit: Yes Status: Acute Code(s): J18.9 - PNEUMONIA, UNSPECIFIED ORGANISM SNOMED Code(s): 482982811 (4) Alcoholic pancreatitis Current Visit: Yes Status: Acute Code(s): K85.20 - ALCOHOL INDUCED ACUTE PANCREATITIS WITHOUT NECROSIS OR INFCT SNOMED Code(s): 758700159 Plan: 1patient with low-grade fever in this patient with initial admission to the hospital for acute pancreatitis secondary to his alcoholism patient did get intubated because of respiratory distress and did have a positive sputum culture for MSSA on 10/26/2023 patient failed to be extubated and is s/p trach on 11/02/2023 and PEG tube on 11/06/2023 with the etiology of low-grade fever elevat ed white count is multifactorial question of pneumonia versus abdominal etiology and the patient was noted to have significant abdominal distention and apparently the patient did not have bowel movement for the last 5 to 6 days per the nursing staff 2-patient CT of abdominal pelvis with contrast, did not show any worsening pancreatitis pseudocyst or abscess mild cystitis and effusion 3-patient sputum is growing MSSA and Klebsiella patient is covered with the cefepime, vancomycin can be safely discontinued Dictation was produced using [employer] dictation software. please excuse any grammatical, word or spelling errors. Time with Patient: Less than 30
--- NOTE | 2023-11-11 18:09 | P.PN ---
Subjective Progress Note Date: 11/11/23 48-year-old white male with past medical history significant for hypertension, coronary artery disease, current everyday smoker, and alcohol abuse. He was transferred from [facility] 10/22/2023 for acute pancreatitis. He was noted to be intoxicated on arrival to outside facility, with an alcohol level of 34 mg/dL. He required ICU admission for Precedex infusion. He was also noted to have severely elevated lipase and amylase levels. An abdominal and pelvis CT was performed, which identified peripancreatic inflammatory stranding and fluid consistent with acute pancreatitis. No pseudoc yst, abscess, or pancreatic necrosis. No gallstones or ductal dilation. There was decreased attenuation of the hepatic parenchyma, suggestive of fatty infiltration. Patient was dehdydrated and noted to have sustained an WILFRIDO. It appears he was fluid resuscitated with 2 L of crystalloid fluid. He was then transferred to [facility]. CBC from yesterday: WBC count 7.6, hemoglobin 13.9, hematocrit 42, platelets 110. Most recent CMP from yesterday: Sodium 138, potassium 4.4, chloride 108, serum bicarb 19, BUN 18, creatinine 1.13, glucose 94. AST 97, ALT 74, ALP 156, total bilirubin 1. Lipase 11,329 and amylase 1468. Patient is currently lethargic and not making much sense when talking. Unsure of when last drink was. Precedex is infusing at 0.4 mcg/kg/h. He does have bilateral upper extremity soft restraints on, which likely can be discontinued. Blood pressure is noted to be hypertensive, has received a clonidine 0.2 mg patch, which is fallen off and will be replaced. EKG shows normal sinus rhythm without any obvious acute ischemic changes. Patient's pain appears well-managed with current regimen of as needed Dilaudid. He does have some facial grimacing with palpation of the bilateral upper abdomen. Normal saline is infusing at 150 MLS per hour. Currently on room air, in no acute respiratory distress. Afebrile. He has been moved to room 262 in the intensive care unit. -- Plan of care was discussed with patient's mother; reports she was told by family noticed that patient is now qualifying for hospice/palliative care -- Patient condition discussed in great detail; quality assurance tester recommendations discussed with patient also; no plan to consult hospice or palliative care at this time 11/04/2023 Patient is seen and evaluated in room at bedside; discussed with nursing staff; no family members present in the room Patient remains on mechanical ventilator. He is on volume assist-control Blood gases show pO2 of 72, pCO2 47, pH is 7.41. Lab review shows white count 12.5, hemoglobin 9.9, hematocrit 30.3, and platelet count 357,000. Sodium 135, potassium 4.3, chlorides 102, CO2 28, BUN 19, creatinine 0.64. Glucose is 86. Phosphorus 4.7, calcium 9, magnesium 1.9. Sputum from October 25 shows evidence of Staphylococcus aureus. Chest x-ray shows bilateral small effusions, with adjacent atelectasis. -- Plan for PEG tube placement on 11/06/2023; and has been placed back on tube feeding -Intensive care service planning to wean off the fentanyl, patient has been placed on Dilaudid 1 mg every 4 hours -- Patient is status post tracheostomy; PEG tube placement rescheduled for Monday due to nonavailability of OR 11/05/2023 Patient is seen and evaluated in room at bedside; patient remains on mechanical ventilator. Settings include volume assist-control, rate 20, tidal volume 400, FiO2 50%, PEEP of 5. -- Blood gases show pO2 112, pCO2 45, pH is 7.46. The patient is getting lactated Ringer's at 20 cc an hour, propofol at 10 mcg/kg/min, and tube feedings with Nepro, at 10 cc an hour, with a goal of 19. - White count 14, hemoglobin 10.5, hematocrit 31.8, and platelet count 365,000. Sodium 137, potassium 3.7, chlorides 103, CO2 31, BUN 16, creatinine 0.69. Calcium is 9.2. Magnesium 1.9. Sputum from the was positive for Staphylococcus aureus. The patient has completed his antibiotics. Chest x-ray shows bilateral patchy infiltrates, which could be on the basis of fluid, and or pneumonia. 11/06/2023 Patient is seen and evaluated in follow-up today remains on mechanical ventilation with an FiO2 of 50% currently being dropped down to 40% with a PEEP of 5. Patient is status post tracheostomy and currently awaiting to receive a PEG tube today. Tube feedings are on hold and will be resumed once cleared per surgery after 24 hours. Patient remains on propofol with no plans of weaning trial today. Patient did have an attempted weaning trial yesterday and per nursing staff did not tolerate very well. Pulmonary quality assurance tester following with plans on resuming weaning trials tomorrow. Patient is afebrile and has completed a course of antibiotics. Follow-up chest x-ray ordered and pending. 11/07/2023 Patient is seen and evaluated in follow-up status post continued on tracheostomy with an FiO2 of 40% PEEP is 5 as well as PEG tube yesterday. Tube feedings to initiate per surgery today and will monitor for tolerance. Chest x-ray today shows diffuse bilateral infiltrates and small effusion correlate for CHF otherwise findings stable from previous. Blood pressure on the higher side and heart rates into the 1 teens, maintained on verapamil and metoprolol. Patient having low-grade temps and white count is mildly elevated we will repeat cultures including obtaining a sputum culture and urinalysis and initiate Zosyn. Procalcitonin ordered as well. Continue aspiration precautions. Patient is awake and following some commands. Patient is mumbling and attempting to talk. Patient denies pain at this time. 11/08/2023 Patient is seen and evaluated in follow-up continues to be in the ICU currently on pressure support on the vent and off propofol attempting to wean completely off. Patient was having low-grade temps and initial sputum culture showing Staph aureus, repeat sputum and blood cultures ordered as patient white count becoming more elevated and remaining and also tachycardia with concerns of possible pneumonia. Chest x-ray shows diffuse bilateral infiltrate and small effusion correlate for CHF otherwise consider pneumonia. Patient having significant secretions requiring frequent suctioning with concerns of pneumonia. Patient is status post tracheostomy and PEG tube and has been started on tube feedings and tolerating thus far. Working on goal. Will consult infectious disease and appreciate input and recommendations as patient was on antibiotics previously with concerns of aspiration pneumonia although having recurrent fevers and newly elevated white count. Potassium on the lower side will replace per protocol. Procalcitonin is 0.29. Will also add COVID/influenza/RSV testing as patient has had prolonged hospitalization. Patient may be a good candidate for select specialties and a referral will be placed. Social work is following closely. 11/09/2023 Patient is seen in follow-up today continues to be in the ICU with multiple medical consultations following. Infectious disease was consulted and appreciate input and recommendations as patient continues to have some tachycardia, low-grade temps, elevated white count. White count today is 12.4 and hemoglobin is stable at 9.2. Patient is continued on Zosyn for now as CT abdomen pelvis is ordered. Patient is reporting severe abdominal pain in the epigastric pancreatic area. Patient was initially admitted and on antibiotics as sputum culture showed Staph aureus. Patient had been monitored off antibiotics although developing fevers and white count. Preliminary repeat sputum culture showing presumptive staph with gram-negative bacilli and will await finalized culture. Patient also reportedly had not had a bowel movement in 5 days and had a large bowel movement yesterday and will continue with bowel regimen as needed. Awaiting CT report to discuss further with infectious diseas e and other consultations regarding possible select specialties consult. Propofol is off and will continue with current regimen. 11/10/2023 Patient is seen and evaluated in follow-up today with multiple medical consultations following including infectious disease. Patient continues to have fevers underwent CT abdomen with no significant findings noted. Per nursing staff patient continues to be somewhat agitated requiring Precedex as well as continued fevers with preliminary sputum culture repeat showing Staph aureus along with gram-negative bacilli. Patient is being transition to cefepime along with vancomycin and awaiting finalized cultures. Patient is tolerating tube feedings although reduced rate and will continue at a reduced rate for now with close monitoring. Patient continues on pressure support of 7 and PEEP is 5 and FiO2 is 40%.. Chest x-ray showing bilateral lower lobe infiltrates and continues with a mildly elevated white count. Continue weaning trials and adjustments per pulmonary quality assurance tester. Repeated amylase lipase within normal limits. Continuing attempt to wean Precedex. 11/11/2023 Patient is evaluated in the Intensive are unit in follow up. Continues to remain more awake and alert. Plans to continue weaning the patient off the vent as tolerated with plans to attempt the trach collar and voice box. Patient getting frustrated as he is wanting to talk and communicate and difficult to understand. Less agitated today. Continues on IV vancomycin and IV cefepime with sputum cultures positive for staphylococcus aureus and klebsiella pneumoniae. Blood cul tures are negative so far. Blood work today reveals a white blood cell count of 7.8, hemoglobin 8.8, BUN of 14, creatinine of 0.63. Blood sugar is 100. Procalcitonin level remains elevated at 0.24 although improved slightly. Review of systems: Unable to completely obtain as patient continues with the tracheostomy and attempting to speak although very raspy. Patient is more awake and alert today. Physical exam: Gen: This is a 48-year-old male who is currently on tracheostomy pressure suppo rt of 7 with an FiO2 of 28% and PEEP is 5, well-developed, ill-appearing, restless HEENT: Head is atraumatic, normocephalic. Pupils equal, round. Sclerae is anicteric. NECK: Supple. No JVD. No lymphadenopathy. No thyromegaly. LUNGS: Diminished breath sounds bilaterally otherwise clear to auscultation. There is some coarse rhonchi noted at the bases. No intercostal retractions. HEART: S1, S2 are muffled ABDOMEN: Soft. Bowel sounds are present. No masses. Continued tenderness noted on palpation of the pancreatic mid epigastric area. EXTREMITIES: No pedal edema. No calf tenderness. NEUROLOGICAL: Patient is currently awake, alert and oriented x 2-3, more awake and alert, agitated as he attempts to communicate and difficult to talk with the trach collar in place. Assessment: Acute hypoxemic respiratory failure secondary to alcohol withdrawal symptoms and DTs currently maintained on mechanical ventilator since October 26, 2023, status post tracheostomy. Leukocytosis with low-grade temps, concern for pneumonia, sputum culture showing Staph aureus along with Klebsiella pneumonia Status post PEG tube placement Acute alcohol withdrawal symptoms and DTs Uncontrolled hypertension. Improved now. Acute pancreatitis likely alcohol-related, on admission Acute kidney injury likely prerenal; resolved. Severe alcohol abuse Mild transaminitis, improved History of coronary disease Currently everyday smoker GI and DVT prophylaxis Full code Plan: Patient remains on mechanical ventilator. Patient is status post tracheostomy on 11/01/2023. Currently working on weaning vent settings and continues on pressure support of 7. Attempting to talk although raspy and soft. Plans to transition to trach collar. Infectious disease following and blood cultures thus far negative. Repeat sputum culture showing Staph aureus along with Klebsiella pneumonia. Patient is being transition to cefepime and vancomycin. WBC has normalized. Repeat procalcitonin remains elevated at 0.24 however slightly improved. Patient tolerating tube feedings thus far and will be increased today. CT abdomen pelvis done yesterday shows mild wall thickening with haziness on the urinary bladder correlate with urinalysis for cystitis, decrease in fat stranding changes around the pancreas that was compatible with pancreatitis on admission, PEG tube that terminates in the gastric lumen and Crocker catheter in appropriate position with new trace bilateral pleural effusions. Daily weaning trials as per critical care team. Will place consult to select specialties once discussing with other consultations regarding treatment plan moving forward. Patient will likely require insurance authorization as well. Not quite ready for discharge planning as of yet. Overall prognosis is guarded at this time The impression and plan of care has been dictated by Madelyn Elliott, Nurse Practitioner as directed. Dr. Milton MD I have performed a history and physical examination and medical decision making of this patient, discussed the same with the dictator, and agree with the dictators assessment and plan as written, documented as a scribe. Based on total visit time, I have performed more than 50% of this visit. Objective - Vital Signs Vital signs: Vital Signs Temp 98.2 F 11/11/23 07:00 Pulse 88 11/11/23 08:00 Resp 18 11/11/23 08:00 BP 143/98 11/11/23 08:00 Pulse Ox 100 11/11/23 08:00 FiO2 40 11/11/23 08:00 Intake & Output 11/10/23 11/11/23 11/11/23 18:59 06:59 18:59 Intake Total 970.815 348.283 Output Total 1200 825 Balance -229.185 -476.717 Weight 67.3 kg 68 kg Intake: IV 740 240 Cefepime 2 gm In Sodium 100 Chloride 0.9% 100 ml @ 25 mls/hr IVPB Q8HR [facility] Rx# :[id number] Lactated Ringers 1,000 ml 120 240 @ 20 mls/hr IV .Q24H [facility] Rx#:[id number] Sodium Chloride 0.9% 1, 20 000 ml @ 10 mls/hr IV . Q24H [facility] Rx#:[id number] Vancomycin 1,250 mg In 500 Sodium Chloride 0.9% 250 ml @ 125 mls/hr IVPB Q8H [facility] Rx#:[id number] Intake, IV Titration 20.815 18.283 Amount Dexmedetomidine/0.9% NaCl 20.815 18.283 (Pmx) 400 mcg In Empty Bag 1 bag @ 0.2 MCG/KG/HR 3.375 mls/hr IV .Q24H [facility] Rx#:[id number] Tube Feeding 120 90 Other 90 Output: Urine 1200 825 Other: Voiding Method Indwelling Catheter Indwelling Catheter ABP, PAP, CO, CI - Last Documented Arterial Blood Pressure 134/82 - Labs CBC & Chem 7: 11/11/23 06:07 11/11/23 05:08 Labs: Abnormal Lab Results - Last 24 Hours (Table) 11/10/23 11/11/23 11/11/23 Range/Units 10:17 05:08 06:07 RBC 2.88 L (4.30-5.90) m/uL Hgb 8.8 L (13.0-17.5) gm/dL Hct 27.9 L (39.0-53.0) % Creatinine 0.63 L (0.66-1.25) mg/dL Procalcitonin 0.24 H (0.02-0.09) ng/mL Microbiology - Last 24 Hours (Table) 11/07/23 21:28 Blood Culture - Preliminary Blood 11/07/23 20:51 Gram Stain - Final Sputum Sputum Culture - Final Staphylococcus aureus Klebsiella pneumoniae Assessment and Plan Time with Patient: Less than 30
[2023-11-11] MEDS: VANCOMYCIN TROUGH DUE 1 EACH MISC MISCELLANE ONE (18:24)
[2023-11-11 18:28] LABS: Glucose,Whole Blood 88 mg/dL (70-110)
[2023-11-11] MEDS: VANCOMYCIN 1,000 MG in SODIUM CHLORIDE 0.9% 250 ML IVPB SCH (20:28)
[2023-11-11] MEDS: QUEtiapine 50 MG TAB PO SCH (21:59)
[2023-11-12 06:08] LABS: African American GFR (CKD) >90 (>60 ml/min/1.73 sqM); Anion Gap 8 mmol/L; Blood Urea Nitrogen 16 mg/dL (9-20); Calcium 9.6 mg/dL (8.4-10.2); Carbon Dioxide 26 mmol/L (22-30); Chloride 103 mmol/L (98-107); Glucose 105 mg/dL (74-99); Non-African American GFR(CKD) >90 (>60 ml/min/1.73 sqM); Potassium 4.4 mmol/L (3.5-5.1); Sodium 137 mmol/L (137-145)
--- NOTE | 2023-11-12 06:28 | XR ---
EXAMINATION TYPE: XR chest 1V portable DATE OF EXAM: 11/12/2023 COMPARISON: 11/10/2023 HISTORY: Tracheostomy tube placement and pneumonia TECHNIQUE: Single frontal view of the chest is obtained. FINDINGS: Tracheostomy tube is 3 cm above the paul. The heart is normal in size for the technique. The pulmonary vasculature appears congested and unchan ged compared to previous. There are 2 small focal opacities in the left lung base most likely represe nting alveolar edema. The focal opacity in the right lung base in the prior study has decreased in th e interval. There is no pneumothorax or pleural effusion. The osseous structures are intact IMPRESSION: 1 Tracheostomy tube 3 cm above the paul. 2. Mild improvement in the acute cardiopulmonary disease most consistent with CHF.
[2023-11-12 06:52] LABS: Basophils # (A) 0.1 k/uL (0-0.2); Basophils % (A) 1 %; Eosinophils # (A) 0.3 k/uL (0-0.7); Eosinophils % (A) 4 %; HGB 11.2 gm/dL (13.0-17.5); Hypochromasia Slight; Lymphocytes # (A) 1.3 k/uL (1.0-4.8); Lymphocytes % (A) 16 %; MCH 32.2 pg (25.0-35.0); MCV 94.5 fL (80.0-100.0); Mean Platelet Volume 8.5; Monocytes # (A) 0.6 k/uL (0-1.0); Monocytes % (A) 8 %; Neutrophils # (A) 5.5 k/uL (1.3-7.7); Neutrophils % (A) 70 %; Platelet Count 361 k/uL (150-450); RBC 3.49 m/uL (4.30-5.90); WBC 7.9 k/uL (3.8-10.6)
[2023-11-12] MEDS ORDERED: hydrALAZINE HCL 20 MG/ML 1 ML VIAL IVP PRN (08:47)
[2023-11-12] MEDS: chlordiazePOXIDE 25 MG CAP PO PRN (10:35)
[2023-11-12 11:50] LABS: Glucose,Whole Blood 103 mg/dL (70-110)
--- NOTE | 2023-11-12 11:51 | P.PN ---
Subjective Progress Note Date: 11/12/23 Patient is a 48-year-old white male with past medical history significant for hypertension, coronary artery disease, current everyday smoker, and alcohol abuse. He was transferred from [facility] 10/22/2023 for acute pancreatitis. He was noted to be intoxicated on arrival to outside facility, with an alcohol level of 34 mg/dL, while at our facility developed impending acute alcohol withdrawal delirium tremens. He required ICU admission for Precedex infusion. Patient is currently lethargic and not a very good historian. After reviewing the medical records from the outside facility, it appears he presented with abdominal pain. He was also noted to have severely elevated lipase and amylase levels. An abdominal and pelvis CT was performed, which identified peripancreatic inflammatory stranding and fluid consistent with acute pancreatitis. No pseudocyst, abscess, or pancreatic necrosis. No gallstones or ductal dilation. There was decreased attenuation of the hepatic parenchyma, suggestive of fatty infiltration. Patient was dehdydrated and noted to have sustained an WILFRIDO. It appears he was fluid resuscitated with 2 L of crystalloid fluid. He was then transferred to [facility]. He was noted to be agitated and combative. He had received multiple doses of Ativan, I am told a total of 16 mg. He was also receiving Haldol. Despite this, he had sustained recorded CIWA scores greater than 28, and for this reason he was placed on a Precedex infusion and admitted to the intensive care unit. Most recent CBC from yesterday: WBC count 7.6, hemoglobin 13.9, hematocrit 42, platelets 110. Most recent CMP from yesterday: Sodium 138, potassium 4.4, chloride 108, serum bicarb 19, BUN 18, creatinine 1.13, glucose 94. AST 97, ALT 74, ALP 156, total bilirubin 1. Lipase 11,329 and amylase 1468. Patient is currently lethargic and not making much sense when talking. Unsure of when last drink was. Precedex is infusing at 0.4 mcg/kg/h. He does have bilateral upper extremity soft restraints on, which likely can be discontinued. Blood pressure is noted to be hypertensive, has received a clonidine 0.2 mg patch, which is fallen off and will be replaced. EKG shows normal sinus rhythm without any obvious acute ischemic changes. Patient's pain appears well-managed with current regimen of as needed Dilaudid. He does have some facial grimacing with palpation of the bilateral upper abdomen. Normal saline is infusing at 150 MLS per hour. Currently on room air, in no acute respiratory distress. Afebrile. He has been moved to room 262 in the intensive care unit. Patient was evaluated today on 10/25/2023, remains in the ICU, remains on Precedex at 1 mcg/kg/h. Remains on Cleviprex. Remains on Ativan intermittently and on Haldol. In spite of all of this the patient continues to have episodes of extreme agitation and restlessness. And seems to be delirious. Continues to have a sitter at bedside. His WBC is 7.8 hemoglobin 11.3 basic metabolic profile is normal renal profile is normal however his bicarb is 15, lipase is down to 164 today, it was 1668 yesterday, amylase is down to 112 from 598 yesterday obviously his acute pancreatitis is improving chest x-ray showed no evidence of active disease, minimal pulmonary vascular prominence Reevaluate today on 10/26/2023, patient remains in the ICU, he is on room air, continues to have intermittent episodes of extreme agitation, remains on Precedex at 1.4 mcg/kg/h, remains on Ativan intermittently and Haldol intermittently, nonetheless continues to have episodes of significant agitations. Patient is on the CIWA protocol, he seems to require suctioning of his oropharynx, purulent material is noted, patient does have gag with suctioning and able to protect his airways. But he has a very poor cough reflex. At any rate patient will need to be on oral medications, and I am recommending a nasogastric tube to be placed today, if the patient continues to do poorly may have to consider intubation and mechanical ventilation, however this will be the last resort. In the meantime I believe the patient will remain on the same medications he is presently on and will remain on the CIWA protocol. Needs definitely close monitoring in the ICU. Patient is purulent secretions I recommended empirically starting the patient on Zosyn. WBC count is 7.4 hemoglobin 11.3 basic metabolic profile is normal except for low potassium of 3.2 renal profile is normal lipase is down to 72 amylase is normal Patient was reevaluated today on 10/27/2023, patient received significant amount of sedation yesterday, and continued to be restless and agitated, at 1 point he desaturated, and he was gurgling with secretions, I was made aware of the patient and recommended intubation. Patient was intubated and placed on mechanical ventilation overnight, he is on assist-control rate of 20 tidal volume 400 FiO2 40% and PEEP of 5 ABG showed a pO2 of 131 pCO2 34 pH of 7.30 hence kept on the same ventilator settings. He is on propofol at 65 mcg/kg/min is also 1.9 normal saline at 125 cc/h. Patient is receiving bicarb orally for low bicarb. He is also on Zosyn empirically. Patient is also on enteral feeding. Today I went ahead and placed a right radial arterial line for hemodynamic monitoring and for frequent blood draws. WBC count is 5.9 hemoglobin is 9.4. Basic metabolic profile is normal except for bicarb of 14 patient has a hyperchloremic metabolic none anion gap metabolic acidosis. Chest x-ray showed pulmonary vascular congestion, patient received a dose of Lasix earlier this morning Patient was reevaluated today on 10/28/2023, remains in the ICU, intubated and mechanically ventilated. Patient is on assist-control rate of 20 tidal volume 400 FiO2 40% PEEP of 5 ABG showed a pO2 of 160 pCO2 37 pH of 7.34, I cut down his FiO2 down to 35%. Patient is receiving propofol at 55 mcg/kg/min, he is off norepinephrine, receiving 0.9 normal saline at 125 cc/h. Continues to have intermittent episodes of coffee-ground material in the nasogastric tube, hence nutrition/enteral feeding is presently on hold. Chest x-ray is showing some minimal vascular congestion along with small effusions and atelectasis patient remains on Zosyn empirically, he will receive Lasix 1 dose today 20 mg IV push. Patient continues to have significant amount of secretions he was given a trial off sedation patient was agitated, restless, and again significant amount of secretions were noted in the endotracheal tube, hence will hold on weaning today and extubation. WBC count is 3.8 hemoglobin 8.9. Basic metabolic profile is normal, renal profile is normal Patient was reevaluated today on 10/29/2019, remains in the ICU, intubated and mechanically ventilated. Patient was extremely restless and agitated last night on lower dose of sedation, hence his propofol was increased to as high as 70 mcg/kg/min at present. He is requiring Cleviprex at 10 mg/h for tachycardia. He is on IV fluid 0.9 normal saline at 125 cc/h. Continues to have lots of secretions via the endotracheal tube. Patient is to be restarted back on tube feeding, his positioning of the endotracheal tube and nasogastric tube will be adjusted today. Remains on Zosyn his vent settings are 20/400/35%/5 ABG showed a pO2 of 78 pCO2 34 pH of 7.37 chest x-ray today is noted to show mid and lower lung opacities, slightly increased and small pleural effusions. Patient has atelectasis, and may have a component of fluid overload, will continue intermittent diuresis on this patient, patient did receive 40 mg of Lasix IV push today. Cardiogram on this admission showed good LV function ejection fraction of 55 to 60%, and no evidence of valvular heart disease Progress note dated October 30, 2023. This is a 48-year-old male who was admitted on October 21. He came into the hospital, with alcohol withdrawal syndrome. The patient was intubated on October 25 for respiratory failure. He remains on the ventilator. Settings include volume assist-control, rate 20, tidal volume 400, FiO2 35%, with a PEEP of 5. Blood gases show pO2 of 87, pCO2 of 39, pH is 7.43. The patient is on Cleviprex at 1 mg an hour, propofol at 60 mcg/kg/min, saline at KVO, and saline at 30 cc an hour. The patient continues on Zosyn. The patient's sputum revealed evidence of methicillin sensitive Staph aureus. White count is 5.7, hemoglobin 10.1, hematocrit 31.4, and platelet count was 231,000. Sodium 140, potassium 3.4, chlorides 111, CO2 25, BUN 6, creatinine 0.55. Glucose 103. AST 14. Ammonia level was normal. Chest x-ray shows bilateral interstitial and patchy opacities. Progress note dated October 31, 2023. This is a 48-year-old male who was admitted on October 21. He came into the hospital, with alcohol withdrawal syndrome. The patient was intubated on October 25 for respiratory failure. He remains on the ventilator. Current ventilator s ettings include volume assist-control, rate 20, tidal volume 400, FiO2 35%, PEEP of 5. Blood gases show pO2 of 88, pCO2 46, pH is 7.46. The patient is getting propofol at 70 mcg/kg/min, Cleviprex at 2 mg an hour, and Nepro tube feedings at 19 cc an hour, which is goal. Today, we will add amlodipine at 5 mg an hour for better blood pressure control, and the patient continues on Zosyn, for staphy lococci in the sputum. White count 7.2, hemoglobin 10.2, hematocrit 31, and platelet count was normal. Sodium 140, potassium 3.9, chlorides 106, CO2 31, BUN 8, creatinine 0.52. Glucose is 120. Calcium 8.8. Patient's chest x-ray shows a stable exam with small bilateral pleural effusions, and adjacent atelectasis. Progress note dated November 01, 2023. 48-year-old male who was admitted on October 21. He came to the hospital with alcohol withdrawal syndrome. The patient was intubated on October 25, for respiratory failure. He remains on the ventilator. Settings include volume assist-control, rate 20, tidal volume 400, FiO2 35%, and PEEP of 5. Blood gases show pO2 74, pCO2 45, pH is 7.47. He is on propofol at 70 mcg/kg/min, and Cleviprex at 4 mg an hour. The patient is getting saline at 50 cc an hour. He is also getting tube feedings with Nepro at 27 cc an hour, which is goal. Resid uals were high. We added Reglan 10 mg every 6. In addition, because of failure to wean from mechanical ventilation, the patient will have a surgical consultation for possible tracheostomy and PEG tube placement. Current labs include a white count 6.7, hemoglobin 10, hematocrit 30.9, and a platelet count of 305,000. Sodium 139, potassium 3.9, chlorides 106, CO2 31, BUN 11, creatinine 0.62. Glucose is 109. Calcium is 9.1. Sputum from October 25 was positive for Staphylococcus aureus. Chest x-ray is largely unchanged. Progress note dated November 02, 2023. The patient is seen today in room 262. 48-year-old male admitted on October 21. He came into the hospital with alcohol withdrawal syndrome. He was intubated for respiratory failure on October 26, 2023. He remains on the ventilator. Ve ntilator settings include volume assist-control, rate 20, tidal volume 400, FiO2 35%, and PEEP of 5. Blood gases show pO2 106, pCO2 49, pH is 7.43. The patient is on saline at 20 cc an hour, propofol at 60 mcg/kg/min, and fentanyl 1 mcg/kg/h. He is getting Zosyn IV. The patient is scheduled to have a possible tracheostomy and PEG tube placement today. White count is 8.1, hemoglobin 9.8, hematocrit 29.3, platelet count normal. Sodium 140, potassium 3.9, chlorides 109, CO2 31, BUN 13, creatinine 0.73. Glucose is 96. Calcium 9.1. Sputum Gram stain from 418, showed evidence of Staphylococcus aureus. Chest x-ray shows bilateral lung opacities. Chest x-ray is essentially unchanged. Progress note dated November 03, 2023. The patient is seen today again in room 262. The patient remains on mechanical ventilator. Ventilator settings include volume assist-control, rate 20, tidal volume 400, FiO2 35%, PEEP of 5. Blood gases show pO2 of 83, pCO2 48, pH of 7.41. The patient continues on propofol at 60 mcg/kg/min, fentanyl at 1 mcg/kg/h, and saline at 10 cc an hour. Tube feedings are on hold, for possible PEG tube placement today, November 02. The patient did have a tracheostomy perf ormed on November 01. I am going to add Dilaudid 1 mg every 6 hours, to his regimen, to see if we can get him off the fentanyl drip. White count 10.8, hemoglobin 10.6, macro 33, with a normal platelet count. Sodium 137, potassium 4.2, chlorides 104, CO2 30, BUN 14, creatinine 0.74. Albumin is 2.8. Glucose is 76. Sputum on October 25 was positive for Staphylococcus aureus. Chest x-ray shows the presence of a tracheostomy tube. Bilateral infiltrates, appear improved. Progress note dated November 04, 2023. This is a 48-year-old male seen today in room 62. The patient remains on mechanical ventilator. He is on volume assist-control, rate 20, tidal volume 400, FiO2 50%, and PEEP of 5. Blood gases show pO2 of 72, pCO2 47, pH is 7.41. The patient continues on fentanyl and 0.5 mcg/kg/h, propofol at 40 mcg/kg/min, lactated Ringer's at 20 cc an hour. Current laboratory data includes a white count 12.5, hemoglobin 9.9, hematocrit 30.3, and platelet count 357,000. Sodium 135, potassium 4.3, chlorides 102, CO2 28, BUN 19, creatinine 0.64. Glucose is 86. Phosphorus 4.7, calcium 9, magnesium 1.9. Sputum from October 25 shows evidence of Staphylococcus aureus. Chest x-ray shows bilateral small effusions, with adjacent atelectasis. Progress note dated November 05, 2023. 48-year-old male seen again in room 262. The patient remains on mechanical ventilator. Settings include volume assist-control, rate 20, tidal volume 400, FiO2 50%, PEEP of 5. Blood gases show pO2 112, pCO2 45, pH is 7.46. The patient is getting lactated Ringer's at 20 cc an hour, propofol at 10 mcg/kg/min, and tube feedings with Nepro, at 10 cc an hour, with a goal of 19. The patient is currently not on any antibiotics. We will attempt a daily interruption of sedation, and spontaneous breathing trial today, with a CPAP of 5, and pressure support of 5. White count 14, hemoglobin 10.5, hematocrit 31.8, and platelet count 365,000. Sodium 137, potassium 3.7, chlorides 103, CO2 31, BUN 16, creatinine 0.69. Calcium is 9.2. Magnesium 1.9. Sputum from the was positive for Staphylococcus aureus. The patient has completed his antibiotics. Chest x-ray shows bilateral patchy infiltrates, which could be on the basis of fluid, and or pneumonia. On today's evaluation of 11/06/2023, the patient is being seen for a follow-up. This is a 48-year-old male patient with known history of a complicated al coholism with history of alcoholic pancreatitis and delirium. The patient is post acute hypoxic respiratory failure due to his comorbidities and the patient was difficult to extubate. The patient required mechanical ventilation on 10/26/2023 and ultimately the patient was given a tracheostomy tube on 11/02/2023. He still has an NG tube in place and the patient is going to undergo a PEG tube insertion today. On today's evaluation, the patient is on propofol running at 40 mcg/kg/min. The patient is n.p.o. awaiting PEG tube insertion. There is an NG tube in place. IV fluids are in the form of normal saline at rate of 20 cc an hour. Is on assist-control mode of mechanical ventilation at rate of 20, tidal volume of 400, FiO2 of 50% with a PEEP of 5. His sputum was positive for MSSA and the patient completed a course of IV Zosyn. He has a arterial line in the right upper extremity. Fluid balance is -837 cc over the past 24 hours. Blood gas from today shows a pH of 7.44 with a pCO2 of 47 and pO2 of 94. The white cell count at 9 with a hemoglobin 9.2 and a platelet count of 383. The rest of the electrolytes are all stable. BUN is at 40 with a creatinine of 0.7 and the blood sugar is 93 from this morning. The chest x-ray shows basilar infiltrate and a small effusion otherwise the findings are essentially stable. Tracheostomy tube is in good location. No significant orotracheal secretions at this point in time. No hemodynamic instability. No hypotension. On today's evaluation of 11/07/2023, I am seeing the patient in follow-up in the intensive care unit. The patient remains intubated on the mechanical ventilator. She is currently on propofol running at 10 mcg/kg/min. The patient is on assist-control mode of mechanical ventilation at the rate of 20, tidal volume of 400, FiO2 40% with a PEEP of 5. The blood gas shows a pH of 7.47 with a pCO2 of 38 and a pO2 of 96. The patient is arousable and he is calm and comfortable. Following simple commands and moving all 4 extremities without any limitation. Chest x-ray shows some infiltration in lung bases and small bilateral pleural effusions. Nevertheless, the patient has demonstrated adequate oxygenation. As mentioned, the patient had prolonged respiratory failure and the patient has a #8 [address] tracheostomy tube in place. PEG tube insertion was not successful yesterday without any issues and the patient is going to be started on enteral feeding for nutritional support. Hemoglobin is at 9.8 with a platelet count of 456. BUN is 14 with a creatinine of 0.7 and a sodium levels at 137. The patient is currently on no antibiotics. The patient has completed his course of IV Zosyn. The patient is on bronchodilators [id number]. The patient has metoprolol for some sinus tachycardia and blo od pressure control and a dose of 50 mg p.o. twice daily. He is also taking Seroquel 100 mg twice a day. He is on Isoptin 80 mg p.o. 3 times daily. Surgical wound site over the abdomen is dry clean and intact. On today's evaluation of 11/08/2023, the patient is being seen for a follow-up. This morning, the patient is resting comfortably in bed. No today put the patient on pressure support mode of mechanical ventilation yesterday and the patient was able to tolerate it for a total of 6 hours and following that was placed on assist-control mode, volume cycle. The same is being done today. The patient was on assist-control mode at a rate of 20 with a tidal volume of 400 and a PEEP of 5 with an FiO2 of 40%. The patient has been switched to pressure support of 7 and a PEEP of 5. The patient was also on propofol which has been weaned off and currently is off sedation. Resting comfortably in bed. He underwent a PEG tube insertion. Enteral feeding with Nepro was initiated and the patient is currently at the rate of 32 cc an hour. Abdomen slightly distended. No bowel movement activity yet. The patient remains on Reglan. Fluid balance is ordered of -730 cc over the past 24 hours and the patient is receiving lactated Ringer at rate of 20 cc an hour. WBC count is 11.6 with a hemoglobin 9.7 and a platelet count of 424. Blood gas from this morning showed a pH of 7.45 with a pCO2 of 46 and pO2 of 102. BUN is 16 with a creatinine of 0.8 and a sodium levels at 138. Chest x-ray from today is essentially unchanged. The patient continues to have bilateral infiltrates and small effusions, essentially unchanged over the past 1 week. He is arousable. He follows simple commands. No significant agitation at this point in time. On 11/10/2023, I am seeing the patient for a follow-up. This morning, the patient is on a pressure support of 7 and a PEEP of 5 and the patient is able to tolerate spontaneous breathing without any major difficulties. The patient's FiO2 is at 40%. Agitation and restlessness remains an ongoing issue on this patient. The patient accordingly is being treated with Precedex and currently Precedex is running at 0.3 mcg. The patient is also on Seroquel 100 mg p.o. twice a day. The patient will be started on BuSpar in addition. Unfortunately, the patient spiked a temperature of one 1.7. The chest x-ray showing chronic bilateral lower lobe pulmonary filtrates. No significant increase in the orotracheal secretions. The patient does not have any central lines at this point in time. The patient remains on lactated Ringer at 20 cc an hour. If sepsis workup will be initiated accordingly. The patient is on Nepro at a rate of 10 cc an hour. He is on lactated Ringer at rate of 20 cc an hour. The blood work from today shows a WBC count of 11.4 with a hemoglobin 9.3 and a platelet count of 381. BUN is at 15 with a creatinine of 0.7 and sodium levels at 137. Based on his increased abdominal distention, a CAT scan of the abdomen was done that showed mild wall thickening and haziness on the urinary bladder. There was also decreasing fat stranding changes around the pancreas consistent with previous pancreatitis. PEG tube terminates in the gastric lumen. Crocker catheter is in place. There is some trace bilateral lower lobe atelectatic changes and effusions. As such, the patient is able to tolerate the enteral feeding in an effort will be kept at a lower rate of 10 cc an hour. 11/11/2023, the patient is being seen for a follow-up. The patient remains on a pressure support mode of mechanical ventilation with a pressure support of 7 and a PEEP of 5. Overnight, he was placed on Precedex and this morning and this is running at 0.3 mcg/kg/h. Otherwise, the patient is calm and comfortable and is not having any major respiratory distress. No significant orotracheal secretions. Enteral feeding is running at the rate of 10 cc an hour and the patient is currently on vital AF. No complaints. Amylase lipase levels are not elevated at this point. Distention. No fever this morning. Note that based on his yesterday's fever episode, the patient was placed on a broad-spectrum antibiotics and was started on vancomycin and cefepime. Repeat sputum Gram stain and culture still pending for now. Nevertheless, since then, the patient has been afebrile.. Hemodynamically stable without any significant hypotension. Blood work shows a WBC count of 7.8 with a hemoglobin 8.8 and a platelet count of 345 and electrolytes are all stable with a BUN of 14 and a creatinine of 0.6 and a sodium level of 137. Patient is on Seroquel 150 mg p.o. twice daily. The patient is also on BuSpar 30 mg p.o. twice daily. Ativan on as-needed basis. Precedex is being weaned off. 11/12/2023, patient is awake and alert. On and off he still requiring Precedex as the patient's agitation waxes and wanes. He is currently on Precedex at 0.7 mcg/kg/h and the patient is very much comfortable. Is currently on trach collar, FiO2 of 28%. Has been off the mechanical ventilator for the past 24 hours. Breathing is comfortable. No respiratory distress. No significant orotracheal secretions. Awaiting sputum Gram stain and culture and patient is currently covered with cefepime and vancomycin. He has afebrile for now. Continues to receive enteral feeding for nutritional support and the patient is currently on Nepro at rate of 20 cc an hour. He is also on Seroquel for agitation. He is on BuSpar. Librium will be also added as we are trying to wean this patient off Precedex. He is on Lovenox for DVT prophylaxis. Sitting Dilaudid on an as-needed basis. Adequate urine output. White cell count at 7.9 with a hemoglobin 11.2, BUN 16 with a creatinine of 0.6 and a sodium levels at 137. No abdominal distention. Tolerating diet which is in the form of Nepro, via PEG tube. No abdominal distention. Objective - Vital Signs Vital signs: Vital Signs Temp 98.3 F 11/12/23 04:00 Pulse 79 11/12/23 09:52 Resp 23 11/12/23 07:00 BP 169/111 11/12/23 07:00 Pulse Ox 96 11/12/23 09:54 FiO2 28 11/12/23 09:54 Intake & Output 11/11/23 11/12/23 11/12/23 18:59 06:59 18:59 Intake Total 1740.000 637.796 20 Output Total 1725 1725 125 Balance 15.000 -1087.204 -105 Weight 65.1 kg Intake: IV 1350 250 Cefepime 2 gm In Sodium 100 Chloride 0.9% 100 ml @ 25 mls/hr IVPB Q8HR [facility] Rx# :[id number] Vancomycin 1,000 mg In 250 Sodium Chloride 0.9% 250 ml @ 125 mls/hr IVPB Q8H [facility] Rx#:[id number] Vancomycin 1,250 mg In 1250 Sodium Chloride 0.9% 250 ml @ 125 mls/hr IVPB Q8H [facility] Rx#:[id number] Intake, IV Titration 100.000 77.796 Amount Dexmedetomidine/0.9% NaCl 100.000 77.796 (Pmx) 400 mcg In Empty Bag 1 bag @ 0.2 MCG/KG/HR 3.375 mls/hr IV .Q24H [facility] Rx#:[id number] Tube Feeding 200 220 20 Other 90 90 Output: Urine 1725 1725 125 Other: Voiding Method Indwelling Catheter Indwelling Catheter # Bowel Movements 0 ABP, PAP, CO, CI - Last Documented Arterial Blood Pressure 134/82 - Exam No acute distress, currently sedated, with a midline tracheostomy tube. Calm and comfortable, currently on 28% trach collar, on Precedex. Head exam was generally normal. There was no scleral icterus or corneal arcus. Mucous membranes were moist. HEENT examination is grossly unremarkable. The patient has a tracheostomy tube in place. Exit site is dry clean and intact. Neck supple. Full range of motion. No adenopathy thyromegaly or neck vein distention. Cardiovascular examination reveals regular rhythm rate. S1-S2 normal. No S3 or S4. No discernible murmur noted. Heart sounds are distant. Lungs reveal scattered bilateral rhonchi. No wheezes or crackles. Breath sounds equal. Abdominal exam revealed normal bowel sounds. The abdomen was soft, non-tender, and without masses, organomegaly, or appreciable enlargement of the abdominal aorta.. The PEG tube site is dry clean and intact. No significant abdominal tenderness. No significant abdominal distention. Bowel sounds are hypoactive. Extremities are intact. No cyanosis clubbing or edema. Skin is without rash or lesion. Neurologic examination, the patient is sedated, arousable, moving all 4 extremities. There is generalized global weakness in all 4 extremities - Labs CBC & Chem 7: 11/12/23 05:32 11/12/23 05:32 Labs: Abnormal Lab Results - Last 24 Hours (Table) 11/12/23 11/12/23 Range/Units 05:32 05:32 RBC 3.49 L (4.30-5.90) m/uL Hgb 11.2 L (13.0-17.5) gm/dL Hct 33.0 L (39.0-53.0) % Creatinine 0.62 L (0.66-1.25) mg/dL Glucose 105 H (74-99) mg/dL Microbiology - Last 24 Hours (Table) 11/11/23 13:37 Gram Stain - Preliminary Sputum 11/10/23 10:17 Blood Culture - Preliminary Blood Assessment and Plan Plan: Acute hypoxemic respiratory failure, secondary to acute alcohol withdrawal syndrome, status post intubation and mechanical ventilation, on October 26, 2023. The patient remains intubated on mechanical ventilator. The plan for now is to proceed with a PEG tube insertion and subsequently will assess his readiness to wean off the mechanical ventilator. Chest x-ray showing limited bibasilar pulm infiltrates. Patient is currently on 2 8 % trach collar. No significant respiratory distress. Chest x-ray shows limited inflation of the lung base bilaterally. Awaiting final sputum Gram stain and culture and the patient remains on a combination of cefepime and vancomycin. Prolonged respiratory failure requiring tracheostomy tube insertion and the patient is S/P tracheostomy November 02, 2023. Enteral feeding via PEG tube and a tube was inserted yesterday without any complications. The patient is currently on Nepro at rate of 20, still requiring on and off Precedex cc an hour Acute alcohol withdrawal with acute alcohol intoxication. No active signs of encephalopathy or delirium at this point in time and the patient is currently on Seroquel 150 and the patient was also started on BuSpar mg p.o. twice a day for increased anxiety Acute fever, currently under investigation. Covered empirically with a combination of cefepime and vancomycin pending further cultures, currently afebrile Acute alcoholic pancreatitis, recovered, currently receiving enteral feeding for nutritional support via PEG tube, tolerating enteral feeding for nutritional support Hypertensive urgency. Abdominal pain, secondary to pancreatitis. Improved Acute kidney injury, recovered History of alcoholism. Mild transaminitis. History of coronary artery disease. Current everyday smoker. Sinus tachycardia Plan: Keep the patient on a trach collar 28%. Wean off Precedex Continue Seroquel and BuSpar at the same doses and add Librium 25 mg 3 times daily Continue enteral feeding for nutritional support, the patient is currently on Nepro at rate of 20 cc an hour Continuel lactulose 20 g twice a day and Dulcolax suppositories. Recheck amylase and lipase were not elevated Continue thiamine and folate No need for pressors for now Currently afebrile and the patient is undergoing a fever workup cultures are still pending for the patient is currently on a combination of cefepime and vancomycin Continue Isoptin and increase the metoprolol to 50 mg p.o. 3 times daily Aggressive physical therapy and passive range of motion Lovenox 40 mg subcu for DVT prophylaxis Continue bronchodilators Consult select specialty Critical care evaluation that was done more than 30 minutes. Time with Patient: Greater than 30
[2023-11-12 18:58] LABS: Glucose,Whole Blood 103 mg/dL (70-110)
--- NOTE | 2023-11-12 19:03 | P.PN ---
Subjective Progress Note Date: 11/12/23 Patient is status post tracheostomy gastrostomy tube placement. He is sitting up in a chair. No acute events. Neck: Tracheostomy site clean dry intact. Abdomen: Gastrostomy tube intact. Plan: 1. Transfer to [facility] when medically stable Objective - Vital Signs Vital signs: Vital Signs Temp 98.8 F 11/12/23 16:00 Pulse 75 11/12/23 18:00 Resp 19 11/12/23 18:00 BP 98/55 11/12/23 18:00 Pulse Ox 95 11/12/23 18:00 FiO2 28 11/12/23 18:00 Intake & Output 11/12/23 11/12/23 11/13/23 06:59 18:59 06:59 Intake Total 526.468 4290.803 Output Total 1725 1350 Balance -1087.204 -277.197 Weight 65.1 kg Intake: IV 250 480 Cefepime 2 gm In Sodium 200 Chloride 0.9% 100 ml @ 25 mls/hr IVPB Q8HR [facility] Rx# :[id number] Invasive Line 3 30 Vancomycin 1,000 mg In 250 250 Sodium Chloride 0.9% 250 ml @ 125 mls/hr IVPB Q8H [facility] Rx#:[id number] Intake, IV Titration 77.796 162.803 Amount Dexmedetomidine/0.9% NaCl 77.796 162.803 (Pmx) 400 mcg In Empty Bag 1 bag @ 0.2 MCG/KG/HR 3.375 mls/hr IV .Q24H [facility] Rx#:[id number] Tube Feeding 220 320 Other 90 110 Output: Urine 1725 1350 Other: Voiding Method Indwelling Catheter Urinal # Bowel Movements 0 ABP, PAP, CO, CI - Last Documented Arterial Blood Pressure 134/82 - Labs CBC & Chem 7: 11/12/23 05:32 11/12/23 05:32 Labs: Abnormal Lab Results - Last 24 Hours (Table) 11/12/23 11/12/23 Range/Units 05:32 05:32 RBC 3.49 L (4.30-5.90) m/uL Hgb 11.2 L (13.0-17.5) gm/dL Hct 33.0 L (39.0-53.0) % Creatinine 0.62 L (0.66-1.25) mg/dL Glucose 105 H (74-99) mg/dL Microbiology - Last 24 Hours (Table) 11/10/23 10:17 Blood Culture - Preliminary Blood 11/11/23 13:37 Gram Stain - Preliminary Sputum
--- NOTE | 2023-11-12 19:14 | P.PN ---
Subjective Progress Note Date: 11/12/23 48-year-old white male with past medical history significant for hypertension, coronary artery disease, current everyday smoker, and alcohol abuse. He was transferred from [facility] 10/22/2023 for acute pancreatitis. He was noted to be intoxicated on arrival to outside facility, with an alcohol level of 34 mg/dL. He required ICU admission for Precedex infusion. He was also noted to have severely elevated lipase and amylase levels. An abdominal and pelvis CT was performed, which identified peripancreatic inflammatory stranding and fluid consistent with acute pancreatitis. No pseudoc yst, abscess, or pancreatic necrosis. No gallstones or ductal dilation. There was decreased attenuation of the hepatic parenchyma, suggestive of fatty infiltration. Patient was dehdydrated and noted to have sustained an WILFRIDO. It appears he was fluid resuscitated with 2 L of crystalloid fluid. He was then transferred to [facility]. CBC from yesterday: WBC count 7.6, hemoglobin 13.9, hematocrit 42, platelets 110. Most recent CMP from yesterday: Sodium 138, potassium 4.4, chloride 108, serum bicarb 19, BUN 18, creatinine 1.13, glucose 94. AST 97, ALT 74, ALP 156, total bilirubin 1. Lipase 11,329 and amylase 1468. Patient is currently lethargic and not making much sense when talking. Unsure of when last drink was. Precedex is infusing at 0.4 mcg/kg/h. He does have bilateral upper extremity soft restraints on, which likely can be discontinued. Blood pressure is noted to be hypertensive, has received a clonidine 0.2 mg patch, which is fallen off and will be replaced. EKG shows normal sinus rhythm without any obvious acute ischemic changes. Patient's pain appears well-managed with current regimen of as needed Dilaudid. He does have some facial grimacing with palpation of the bilateral upper abdomen. Normal saline is infusing at 150 MLS per hour. Currently on room air, in no acute respiratory distress. Afebrile. He has been moved to room 262 in the intensive care unit. -- Plan of care was discussed with patient's mother; reports she was told by family noticed that patient is now qualifying for hospice/palliative care -- Patient condition discussed in great detail; slot operations director recommendations discussed with patient also; no plan to consult hospice or palliative care at this time 11/04/2023 Patient is seen and evaluated in room at bedside; discussed with nursing staff; no family members present in the room Patient remains on mechanical ventilator. He is on volume assist-control Blood gases show pO2 of 72, pCO2 47, pH is 7.41. Lab review shows white count 12.5, hemoglobin 9.9, hematocrit 30.3, and platelet count 357,000. Sodium 135, potassium 4.3, chlorides 102, CO2 28, BUN 19, creatinine 0.64. Glucose is 86. Phosphorus 4.7, calcium 9, magnesium 1.9. Sputum from October 25 shows evidence of Staphylococcus aureus. Chest x-ray shows bilateral small effusions, with adjacent atelectasis. -- Plan for PEG tube placement on 11/06/2023; and has been placed back on tube feeding -Intensive care service planning to wean off the fentanyl, patient has been placed on Dilaudid 1 mg every 4 hours -- Patient is status post tracheostomy; PEG tube placement rescheduled for Monday due to nonavailability of OR 11/05/2023 Patient is seen and evaluated in room at bedside; patient remains on mechanical ventilator. Settings include volume assist-control, rate 20, tidal volume 400, FiO2 50%, PEEP of 5. -- Blood gases show pO2 112, pCO2 45, pH is 7.46. The patient is getting lactated Ringer's at 20 cc an hour, propofol at 10 mcg/kg/min, and tube feedings with Nepro, at 10 cc an hour, with a goal of 19. - White count 14, hemoglobin 10.5, hematocrit 31.8, and platelet count 365,000. Sodium 137, potassium 3.7, chlorides 103, CO2 31, BUN 16, creatinine 0.69. Calcium is 9.2. Magnesium 1.9. Sputum from the was positive for Staphylococcus aureus. The patient has completed his antibiotics. Chest x-ray shows bilateral patchy infiltrates, which could be on the basis of fluid, and or pneumonia. 11/06/2023 Patient is seen and evaluated in follow-up today remains on mechanical ventilation with an FiO2 of 50% currently being dropped down to 40% with a PEEP of 5. Patient is status post tracheostomy and currently awaiting to receive a PEG tube today. Tube feedings are on hold and will be resumed once cleared per surgery after 24 hours. Patient remains on propofol with no plans of weaning trial today. Patient did have an attempted weaning trial yesterday and per nursing staff did not tolerate very well. Pulmonary slot operations director following with plans on resuming weaning trials tomorrow. Patient is afebrile and has completed a course of antibiotics. Follow-up chest x-ray ordered and pending. 11/07/2023 Patient is seen and evaluated in follow-up status post continued on tracheostomy with an FiO2 of 40% PEEP is 5 as well as PEG tube yesterday. Tube feedings to initiate per surgery today and will monitor for tolerance. Chest x-ray today shows diffuse bilateral infiltrates and small effusion correlate for CHF otherwise findings stable from previous. Blood pressure on the higher side and heart rates into the 1 teens, maintained on verapamil and metoprolol. Patient having low-grade temps and white count is mildly elevated we will repeat cultures including obtaining a sputum culture and urinalysis and initiate Zosyn. Procalcitonin ordered as well. Continue aspiration precautions. Patient is awake and following some commands. Patient is mumbling and attempting to talk. Patient denies pain at this time. 11/08/2023 Patient is seen and evaluated in follow-up continues to be in the ICU currently on pressure support on the vent and off propofol attempting to wean completely off. Patient was having low-grade temps and initial sputum culture showing Staph aureus, repeat sputum and blood cultures ordered as patient white count becoming more elevated and remaining and also tachycardia with concerns of possible pneumonia. Chest x-ray shows diffuse bilateral infiltrate and small effusion correlate for CHF otherwise consider pneumonia. Patient having significant secretions requiring frequent suctioning with concerns of pneumonia. Patient is status post tracheostomy and PEG tube and has been started on tube feedings and tolerating thus far. Working on goal. Will consult infectious disease and appreciate input and recommendations as patient was on antibiotics previously with concerns of aspiration pneumonia although having recurrent fevers and newly elevated white count. Potassium on the lower side will replace per protocol. Procalcitonin is 0.29. Will also add COVID/influenza/RSV testing as patient has had prolonged hospitalization. Patient may be a good candidate for select specialties and a referral will be placed. Social work is following closely. 11/09/2023 Patient is seen in follow-up today continues to be in the ICU with multiple medical consultations following. Infectious disease was consulted and appreciate input and recommendations as patient continues to have some tachycardia, low-grade temps, elevated white count. White count today is 12.4 and hemoglobin is stable at 9.2. Patient is continued on Zosyn for now as CT abdomen pelvis is ordered. Patient is reporting severe abdominal pain in the epigastric pancreatic area. Patient was initially admitted and on antibiotics as sputum culture showed Staph aureus. Patient had been monitored off antibiotics although developing fevers and white count. Preliminary repeat sputum culture showing presumptive staph with gram-negative bacilli and will await finalized culture. Patient also reportedly had not had a bowel movement in 5 days and had a large bowel movement yesterday and will continue with bowel regimen as needed. Awaiting CT report to discuss further with infectious diseas e and other consultations regarding possible select specialties consult. Propofol is off and will continue with current regimen. 11/10/2023 Patient is seen and evaluated in follow-up today with multiple medical consultations following including infectious disease. Patient continues to have fevers underwent CT abdomen with no significant findings noted. Per nursing staff patient continues to be somewhat agitated requiring Precedex as well as continued fevers with preliminary sputum culture repeat showing Staph aureus along with gram-negative bacilli. Patient is being transition to cefepime along with vancomycin and awaiting finalized cultures. Patient is tolerating tube feedings although reduced rate and will continue at a reduced rate for now with close monitoring. Patient continues on pressure support of 7 and PEEP is 5 and FiO2 is 40%.. Chest x-ray showing bilateral lower lobe infiltrates and continues with a mildly elevated white count. Continue weaning trials and adjustments per pulmonary slot operations director. Repeated amylase lipase within normal limits. Continuing attempt to wean Precedex. 11/11/2023 Patient is evaluated in the Intensive are unit in follow up. Continues to remain more awake and alert. Plans to continue weaning the patient off the vent as tolerated with plans to attempt the trach collar and voice box. Patient getting frustrated as he is wanting to talk and communicate and difficult to understand. Less agitated today. Continues on IV vancomycin and IV cefepime with sputum cultures positive for staphylococcus aureus and klebsiella pneumoniae. Blood cul tures are negative so far. Blood work today reveals a white blood cell count of 7.8, hemoglobin 8.8, BUN of 14, creatinine of 0.63. Blood sugar is 100. Procalcitonin level remains elevated at 0.24 although improved slightly. 11/12/2023 Patient remains in the ICU. He has been weaned from the mechanical ventilator and has been placed on the trach collar. He continues to attempt to speak and communicate although getting frustrated. He is less agitated however remains on the precedex gtt. Seroquel and librium doses have been adjusted in an attempt to wean off the precedex. Chest xray today reveals mild improvement in the acute cardiopulmonary disease most consistent with CHF. Repeat sputum culture has been taken and pending. Continues on course of IV cefepime. Vancomycin has been discontinued. Blood work remains WNL. Review of systems: Unable to completely obtain as patient continues with the tracheostomy and attempting to speak although very raspy. Patient is more awake and alert today. Physical exam: Gen: This is a 48-year-old male who is currently on tracheostomy pressure sup port of 7 with an FiO2 of 28% and PEEP is 5, well-developed, ill-appearing, restless HEENT: Head is atraumatic, normocephalic. Pupils equal, round. Sclerae is anicteric. NECK: Supple. No JVD. No lymphadenopathy. No thyromegaly. LUNGS: Diminished breath sounds bilaterally otherwise clear to auscultation. There is some coarse rhonchi noted at the bases. No intercostal retractions. HEART: S1, S2 are muffled ABDOMEN: Soft. Bowel sounds are present. No masses. Continued tenderness noted on palpation of the pancreatic mid epigastric area. EXTREMITIES: No pedal edema. No calf tenderness. NEUROLOGICAL: Patient is currently awake, alert and oriented x 2-3, more awake and alert, agitated as he attempts to communicate and difficult to talk with the trach collar in place. Assessment: Acute hypoxemic respiratory failure secondary to alcohol withdrawal symptoms and DTs status post tracheostomy and weaned off the mechanical ventilator. Leukocytosis with low-grade temps, concern for pneumonia, sputum culture showing Staph aureus along with Klebsiella pneumonia, repeat sputum culture taken. Status post PEG tube placement Acute alcohol withdrawal symptoms and DTs Uncontrolled hypertension. Improved now. Acute pancreatitis likely alcohol-related, on admission Acute kidney injury likely prerenal; resolved. Severe alcohol abuse Mild transaminitis, improved History of coronary disease Currently everyday smoker GI and DVT prophylaxis Full code Plan: Patient is status post tracheostomy on 11/01/2023. Patient has been transitioned to trach collar. Infectious disease following and blood cultures thus far negative. Repeat sputum culture showing Staph aureus along with Klebsiella pneumonia. WBC normalized. Repeat sputum pending. Vancomycin discontinued and patient continues on IV cefepime. Repeat procalcitonin remains elevated at 0.24 however slightly improved. Attempting to wean off the precedex gtt, seroquel has been increased and librium as needed. Check a BNP level. Patient tolerating tube feedings thus far and rate has been increased. CT abdomen pelvis done yesterday shows mild wall thickening with haziness on the urinary bladder correlate with urinalysis for cystitis, decrease in fat stranding changes around the pancreas that was compatible with pancreatitis on a dmission, PEG tube that terminates in the gastric lumen and Crocker catheter in appropriate position with new trace bilateral pleural effusions. Physical therapy has been consulted for evaluation. Social work to follow up on monday. Will place consult to select specialties once discussing with other c onsultations regarding treatment plan moving forward. Patient will likely require insurance authorization as well. Not quite ready for discharge planning as of yet. The impression and plan of care has been dictated by Madelyn Elliott, Nurse Practitioner as directed. Dr. Milton MD I have performed a history and physical examination and medical decision making of this patient, discussed the same with the dictator, and agree with the dictators assessment and plan as written, documented as a scribe. Based on total visit time, I have performed more than 50% of this visit. Objective - Vital Signs Vital signs: Vital Signs Temp 98.8 F 11/12/23 16:00 Pulse 75 11/12/23 18:00 Resp 19 11/12/23 18:00 BP 98/55 11/12/23 18:00 Pulse Ox 95 11/12/23 18:00 FiO2 28 11/12/23 18:00 Intake & Output 11/11/23 11/12/23 11/12/23 18:59 06:59 18:59 Intake Total 1740.000 770.247 1719.803 Output Total 1725 1725 1350 Balance 15.000 -1087.204 -277.197 Weight 65.1 kg Intake: IV 1350 250 480 Cefepime 2 gm In Sodium 100 200 Chloride 0.9% 100 ml @ 25 mls/hr IVPB Q8HR [facility] Rx# :[id number] Invasive Line 3 30 Vancomycin 1,000 mg In 250 250 Sodium Chloride 0.9% 250 ml @ 125 mls/hr IVPB Q8H [facility] Rx#:[id number] Vancomycin 1,250 mg In 1250 Sodium Chloride 0.9% 250 ml @ 125 mls/hr IVPB Q8H [facility] Rx#:[id number] Intake, IV Titration 100.000 77.796 162.803 Amount Dexmedetomidine/0.9% NaCl 100.000 77.796 162.803 (Pmx) 400 mcg In Empty Bag 1 bag @ 0.2 MCG/KG/HR 3.375 mls/hr IV .Q24H [facility] Rx#:[id number] Tube Feeding 200 220 320 Other 90 90 110 Output: Urine 1725 1725 1350 Other: Voiding Method Indwelling Catheter Indwelling Catheter Urinal # Bowel Movements 0 0 ABP, PAP, CO, CI - Last Documented Arterial Blood Pressure 134/82 - Labs CBC & Chem 7: 11/12/23 05:32 11/12/23 05:32 Labs: Abnormal Lab Results - Last 24 Hours (Table) 11/12/23 11/12/23 Range/Units 05:32 05:32 RBC 3.49 L (4.30-5.90) m/uL Hgb 11.2 L (13.0-17.5) gm/dL Hct 33.0 L (39.0-53.0) % Creatinine 0.62 L (0.66-1.25) mg/dL Glucose 105 H (74-99) mg/dL Microbiology - Last 24 Hours (Table) 11/10/23 10:17 Blood Culture - Preliminary Blood 11/11/23 13:37 Gram Stain - Preliminary Sputum Assessment and Plan Time with Patient: Less than 30
[2023-11-13 05:49] LABS: HCT 31.4 % (39.0-53.0); HGB 10.3 gm/dL (13.0-17.5); MCH 30.5 pg (25.0-35.0); MCHC 32.8 g/dL (31.0-37.0); MCV 92.9 fL (80.0-100.0); Mean Platelet Volume 7.9; Platelet Count 379 k/uL (150-450); RBC 3.38 m/uL (4.30-5.90); RDW 14.4 % (11.5-15.5); WBC 6.4 k/uL (3.8-10.6)
[2023-11-13 06:08] LABS: African American GFR (CKD) >90 (>60 ml/min/1.73 sqM); Anion Gap 7 mmol/L; Blood Urea Nitrogen 16 mg/dL (9-20); Calcium 9.5 mg/dL (8.4-10.2); Carbon Dioxide 28 mmol/L (22-30); Chloride 105 mmol/L (98-107); Glucose 108 mg/dL (74-99); Non-African American GFR(CKD) >90 (>60 ml/min/1.73 sqM); Potassium 3.8 mmol/L (3.5-5.1); Sodium 140 mmol/L (137-145)
[2023-11-13 06:20] LABS: Glucose,Whole Blood 83 mg/dL (70-110)
[2023-11-13] MEDS: POTASSIUM BICARBONATE/CIT AC 20 MEQ TABLET.EFF NG-TUBE SCH (09:48)
[2023-11-13] MEDS: chlordiazePOXIDE 25 MG CAP PO SCH (09:55)
[2023-11-13] MEDS ORDERED: VANCOMYCIN TROUGH DUE 1 EACH MISC MISCELLANE ONE (11:00)
--- NOTE | 2023-11-13 12:38 | P.PN ---
Subjective Progress Note Date: 11/13/23 CHIEF COMPLAINT: Abdominal pain HISTORY OF PRESENT ILLNESS: Patient status post PEG tube placement on 11/06/23. Patient is status post tracheostomy placement on 11/02/23. Patient is tolerating tube feeds. Patient tolerating tube feeds. Patient did have a bowel movement. Afebrile. WBC 6.4 PHYSICAL EXAM: VITAL SIGNS: Reviewed. GENERAL: no acute distress. Neck: trach site clean, dry and intact ABDOMEN: Soft. Nondistended. Nontender. PEG tube site clean dry and intact ASSESSMENT: 1. Acute hypoxic respiratory failure due to alcohol withdraw syndrome 2. Severe protein calorie malnutrition 3. Acute alcoholic pancreatitis PLAN: -Continue tube feeds -Patient being evaluated for transfer to select specialty -Continue ICU management -Continue supportive care Physician Adjunct Instructor Chemistry note has been reviewed by physician. Signing provider agrees with the documented findings, assessment, and plan of care. Objective - Vital Signs Vital signs: Vital Signs Temp 98.2 F 11/13/23 04:00 Pulse 73 11/13/23 11:54 Resp 16 11/13/23 10:00 BP 138/82 11/13/23 10:00 Pulse Ox 95 11/13/23 10:00 FiO2 28 11/13/23 10:00 Intake & Output 11/12/23 11/13/23 11/13/23 18:59 06:59 18:59 Intake Total 1072.803 84.407 272.608 Output Total 1350 400 600 Balance -277.197 -315.593 -327.392 Weight 62.7 kg 62.7 kg Intake: IV 480 100 Cefepime 2 gm In Sodium 200 100 Chloride 0.9% 100 ml @ 25 mls/hr IVPB Q8HR [facility] Rx# :[id number] Invasive Line 3 30 Vancomycin 1,000 mg In 250 Sodium Chloride 0.9% 250 ml @ 125 mls/hr IVPB Q8H [facility] Rx#:[id number] Intake, IV Titration 162.803 84.407 52.608 Amount Dexmedetomidine/0.9% NaCl 162.803 84.407 52.608 (Pmx) 400 mcg In Empty Bag 1 bag @ 0.2 MCG/KG/HR 3.375 mls/hr IV .Q24H [facility] Rx#:[id number] Tube Feeding 320 90 Other 110 30 Output: Urine 1350 400 600 Other: Voiding Method Urinal Urinal Urinal # Voids 1 # Bowel Movements 0 0 ABP, PAP, CO, CI - Last Documented Arterial Blood Pressure 134/82 - Labs CBC & Chem 7: 11/13/23 05:23 11/13/23 05:23 Labs: Abnormal Lab Results - Last 24 Hours (Table) 11/13/23 11/13/23 Range/Units 05:23 05:23 RBC 3.38 L (4.30-5.90) m/uL Hgb 10.3 L (13.0-17.5) gm/dL Hct 31.4 L (39.0-53.0) % Glucose 108 H (74-99) mg/dL Microbiology - Last 24 Hours (Table) 11/11/23 13:37 Gram Stain - Preliminary Sputum Sputum Culture - Preliminary Presumptive Staph aureus Gram Neg Bacilli 11/07/23 21:28 Blood Culture - Final Blood 11/10/23 10:17 Blood Culture - Preliminary Blood
[2023-11-13 12:43] LABS: Glucose,Whole Blood 110 mg/dL (70-110)
--- NOTE | 2023-11-13 14:25 | P.PN ---
Subjective Progress Note Date: 11/13/23 Principal diagnosis: Acute alcohol withdrawal 11/11/2023, the patient is being seen for a follow-up. The patient remains on a pressure support mode of mechanical ventilation with a pressure support of 7 and a PEEP of 5. Overnight, he was placed on Precedex and this morning and this is running at 0.3 mcg/kg/h. Otherwise, the patient is calm and comfortable and is not having any major respiratory distress. No significant orotracheal secretions. Enteral feeding is running at the rate of 10 cc an hour and the patient is currently on vital AF. No complaints. Amylase lipase levels are not elevated at this point. Distention. No fever this morning. Note that based on his yesterday's fever episode, the patient was placed on a broad-spectrum antibiotics and was started on vancomycin and cefepime. Repeat sputum Gram stain and culture still pending for now. Nevertheless, since then, the patient has been afebrile.. Hemodynamically stable without any significant hypotension. Blood work shows a WBC count of 7.8 with a hemoglobin 8.8 and a platelet count of 345 and electrolytes are all stable with a BUN of 14 and a creatinine of 0.6 and a sodium level of 137. Patient is on Seroquel 150 mg p.o. twice daily. The patient is also on BuSpar 30 mg p.o. twice daily. Ativan on as-needed basis. Precedex is being weaned off. 11/12/2023, patient is awake and alert. On and off he still requiring Precedex as the patient's agitation waxes and wanes. He is currently on Precedex at 0.7 mcg/kg/h and the patient is very much comfortable. Is currently on trach collar, FiO2 of 28%. Has been off the mechanical ventilator for the past 24 hours. Breathing is comfortable. No respiratory distress. No significant orotracheal secretions. Awaiting sputum Gram stain and culture and patient is currently covered with cefepime and vancomycin. He has afebrile for now. C ontinues to receive enteral feeding for nutritional support and the patient is currently on Nepro at rate of 20 cc an hour. He is also on Seroquel for agitation. He is on BuSpar. Librium will be also added as we are trying to wean this patient off Precedex. He is on Lovenox for DVT prophylaxis. Sitting Dilaudid on an as-needed basis. Adequate urine output. White cell count at 7.9 with a hemoglobin 11.2, BUN 16 with a creatinine of 0.6 and a sodium levels at 137. No abdominal distention. Tolerating diet which is in the form of Nepro, via PEG tube. No abdominal distention. Patient was evaluated today on 11/13/2023, patient remains in the ICU, he is on trach collar at 28% FiO2, patient seems to be calm, however he has his. Swelling in he becomes extremely agitated and restless, still requiring Precedex at 0.6 mcg/kg/h, he is also on Seroquel at 150 twice daily, Librium 50 mg 3 karla es daily and on Ativan as needed. Still not quite ready to be moved out of the ICU, patient is receiving Nepro at 47 cc/h via PEG tube, patient has a trach collar and is receiving 28% FiO2. Chest x-ray continues to show bibasilar infiltrates left more so than right, previously 6.4 hemoglobin 10.3 basic metabolic profile is normal renal profile is normal. Patient remains on cefepime, and his vancomycin was discontinued by Dr. Goddard and remains on GI DVT prophylaxis. Objective - Vital Signs Vital signs: Vital Signs Temp 98.2 F 11/13/23 12:00 Pulse 71 11/13/23 14:00 Resp 18 11/13/23 14:00 BP 121/89 11/13/23 14:00 Pulse Ox 97 11/13/23 14:00 FiO2 28 11/13/23 14:00 Intake & Output 11/12/23 11/13/23 11/13/23 18:59 06:59 18:59 Intake Total 1072.803 84.407 392.608 Output Total 1350 400 900 Balance -277.197 -315.593 -507.392 Weight 62.7 kg 62.7 kg Intake: IV 480 100 Cefepime 2 gm In Sodium 200 100 Chloride 0.9% 100 ml @ 25 mls/hr IVPB Q8HR [facility] Rx# :[id number] Invasive Line 3 30 Vancomycin 1,000 mg In 250 Sodium Chloride 0.9% 250 ml @ 125 mls/hr IVPB Q8H [facility] Rx#:[id number] Intake, IV Titration 162.803 84.407 52.608 Amount Dexmedetomidine/0.9% NaCl 162.803 84.407 52.608 (Pmx) 400 mcg In Empty Bag 1 bag @ 0.2 MCG/KG/HR 3.375 mls/hr IV .Q24H [facility] Rx#:[id number] Tube Feeding 320 180 Other 110 60 Output: Urine 1350 400 900 Other: Voiding Method Urinal Urinal Urinal # Voids 1 # Bowel Movements 0 0 ABP, PAP, CO, CI - Last Documented Arterial Blood Pressure 134/82 - Exam GENERAL EXAM: Revealed 48-year-old white male, on 28% trach collar, calm, not agitated he is on Precedex. HEAD: Normocephalic and atraumatic EYES: Normal reaction of pupils, equal size. NOSE: Clear with pink turbinates. THROAT: No erythema or exudates. NECK: No masses, no JVD. CHEST: No chest wall deformity. Symmetrical chest wall expansion LUNGS: Minimal crackles at the bases. No rhonchi no wheezes CVS: S1 and S2 normal with no audible murmur, regular rhythm. No extra heart sounds ABDOMEN: Soft nontender no megaly no rebound no guarding SKIN: No rashes CENTRAL NERVOUS SYSTEM: Patient is awake, seems to be oriented x 3, calm. EXTREMITIES: No clubbing edema or cyanosis - Labs CBC & Chem 7: 11/13/23 05:23 11/13/23 05:23 Labs: Abnormal Lab Results - Last 24 Hours (Table) 11/13/23 11/13/23 Range/Units 05:23 05:23 RBC 3.38 L (4.30-5.90) m/uL Hgb 10.3 L (13.0-17.5) gm/dL Hct 31.4 L (39.0-53.0) % Glucose 108 H (74-99) mg/dL Microbiology - Last 24 Hours (Table) 11/11/23 13:37 Gram Stain - Preliminary Sputum Sputum Culture - Preliminary Presumptive Staph aureus Gram Neg Bacilli 11/07/23 21:28 Blood Culture - Final Blood 11/10/23 10:17 Blood Culture - Preliminary Blood Assessment and Plan Assessment: Impression: Acute hypoxic respiratory failure secondary to acute alcohol withdrawal and unable to protect his airways, required intubation mechanical ventilation on 10/26/2023, required tracheostomy on 11/01 and PEG tube placement on 11/05 Acute alcohol withdrawal with acute alcohol intoxication, patient required a prolonged course of intubation and sedation because of his alcohol withdrawal. Acute pancreatitis, EtOH related. Resolved Abdominal pain, secondary to acute pancreatitis, resolved Acute kidney injury, resolved History of alcoholism Mild transaminitis History of coronary artery disease Current everyday smoker Hypertensive urgency, resolved Acute fever, currently under investigation, covered empirically with cefepime, however his vancomycin has been discontinued by Dr. Goddard. Recommendation: Continue trach collar Wean Precedex if possible slowly. Consider changing tracheostomy to fenestrated Shiley this way we could start considering capping and possibly consider decannulation in the next few days. Continue nutritional support/enteral feeding Continue IV fluids Continue GI prophylaxis Continue Lovenox, GI prophylaxis Continue to monitor liver profile and daily electrolytes and renal profile. Continue Isoptin and metoprolol for his hypertension and for his tachycardia Physical therapy and passive range of motion Continue bronchodilators Continue to monitor in the ICU Intermittent gentle diuresis. Patient is critically ill, unable to discontinue his Precedex. At times he gets extremely agitated and restless and spite of multiple medications on board to keep him calm. In the next couple of days I will likely consider changing tracheostomy to a fenestrated Shiley, and may eventually start intermittent capping of tracheostomy Critical care time is over 30 min Will continue to follow Time with Patient: Greater than 30
--- NOTE | 2023-11-13 19:32 | P.PN ---
Subjective Progress Note Date: 11/12/23 Principal diagnosis: Reason for follow-up is fever/leukocytosis/pneumonia Patient is a 48-year-old male with a past medical history significant for hypertension coronary disease anxiety current everyday smoker presenting to the hospital more than 2 weeks ago for evaluation of abdominal pain, has been diagnosed and treated for acute pancreatitis secondary to chronic alcohol patient failed to be extubated and got trach and PEG has been running a low- grade fever prompting this consultation. On today's evaluation that is 11/12/2023,the patient remains to be afebrile, patient is on trach collar FiO2 of 28% patient is breathing comfortably is hemodynamically stable not requiring any pressor support no vomiting or diarrhea was reported by the nursing staff. Patient white count is 7.9, creatinine 0.62 Objective - Vital Signs Vital signs: Vital Signs Temp 98.8 F 11/12/23 16:00 Pulse 94 11/12/23 17:00 Resp 19 11/12/23 17:00 BP 96/70 11/12/23 17:00 Pulse Ox 96 11/12/23 17:00 FiO2 28 11/12/23 17:00 Intake & Output 11/11/23 11/12/23 11/12/23 18:59 06:59 18:59 Intake Total 1740.000 909.757 1883 Output Total 1725 1725 1250 Balance 15.000 -1087.204 -240 Weight 65.1 kg Intake: IV 1350 250 480 Cefepime 2 gm In Sodium 100 200 Chloride 0.9% 100 ml @ 25 mls/hr IVPB Q8HR [facility] Rx# :[id number] Invasive Line 3 30 Vancomycin 1,000 mg In 250 250 Sodium Chloride 0.9% 250 ml @ 125 mls/hr IVPB Q8H [facility] Rx#:[id number] Vancomycin 1,250 mg In 1250 Sodium Chloride 0.9% 250 ml @ 125 mls/hr IVPB Q8H [facility] Rx#:[id number] Intake, IV Titration 100.000 77.796 100 Amount Dexmedetomidine/0.9% NaCl 100.000 77.796 100 (Pmx) 400 mcg In Empty Bag 1 bag @ 0.2 MCG/KG/HR 3.375 mls/hr IV .Q24H [facility] Rx#:[id number] Tube Feeding 200 220 320 Other 90 90 110 Output: Urine 1725 1725 1250 Other: Voiding Method Indwelling Catheter Indwelling Catheter Urinal # Bowel Movements 0 0 ABP, PAP, CO, CI - Last Documented Arterial Blood Pressure 134/82 - Exam GENERAL DESCRIPTION: Middle-age male lying in bed in no distress RESPIRATORY SYSTEM: Unlabored breathing , decreased breath sounds at bases HEART: S1 S2 regular rate and rhythm , ABDOMEN: Soft , mild distention and tenderness EXTREMITIES: No edema feet - Labs CBC & Chem 7: 11/13/23 05:23 11/13/23 14:45 Labs: Abnormal Lab Results - Last 24 Hours (Table) 11/12/23 11/12/23 Range/Units 05:32 05:32 RBC 3.49 L (4.30-5.90) m/uL Hgb 11.2 L (13.0-17.5) gm/dL Hct 33.0 L (39.0-53.0) % Creatinine 0.62 L (0.66-1.25) mg/dL Glucose 105 H (74-99) mg/dL Microbiology - Last 24 Hours (Table) 11/10/23 10:17 Blood Culture - Preliminary Blood 11/11/23 13:37 Gram Stain - Preliminary Sputum Assessment and Plan (1) Fever Current Visit: Yes Status: Acute Code(s): R50.9 - FEVER, UNSPECIFIED SNOMED Code(s): 603409062 (2) Leukocytosis Current Visit: Yes Status: Acute Code(s): D72.829 - ELEVATED WHITE BLOOD CELL COUNT, UNSPECIFIED SNOMED Code(s): 229909595 (3) Pneumonia Current Visit: Yes Status: Acute Code(s): J18.9 - PNEUMONIA, UNSPECIFIED ORGANISM SNOMED Code(s): 797210586 (4) Alcoholic pancreatitis Current Visit: Yes Status: Acute Code(s): K85.20 - ALCOHOL INDUCED ACUTE PANCREATITIS WITHOUT NECROSIS OR INFCT SNOMED Code(s): 995074950 Plan: 1patient with low-grade fever in this patient with initial admission to the hospital for acute pancreatitis secondary to his alcoholism patient did get intubated because of respiratory distress and did have a positive sputum culture for MSSA on 10/26/2023 patient failed to be extubated and is s/p trach on 11/02/2023 and PEG tube on 11/06/2023 with the etiology of low-grade fever elevated white count is multifactorial question of pneumonia versus abdominal etiology and the patient was noted to have significant abdominal distention and apparently the patient did not have bowel movement for the last 5 to 6 days per the nursing staff 2-patient CT of abdominal pelvis with contrast, did not show any worsening pancreatitis pseudocyst or abscess mild cystitis and effusion 3-patient sputum is growing MSSA and Klebsiella patient to continue with the cefepime and will discontinue the vancomycin Dictation was produced using [employer] dictation software. please excuse any grammatical, word or spelling errors. Time with Patient: Less than 30
[2023-11-13] MEDS: QUEtiapine 100 MG TAB PO STA (19:33)
--- NOTE | 2023-11-13 19:33 | P.PN ---
Subjective Progress Note Date: 11/13/23 Principal diagnosis: Reason for follow-up is fever/leukocytosis/pneumonia Patient is a 48-year-old male with a past medical history significant for hypertension coronary disease anxiety current everyday smoker presenting to the hospital more than 2 weeks ago for evaluation of abdominal pain, has been diagnosed and treated for acute pancreatitis secondary to chronic alcohol patient failed to be extubated and got trach and PEG has been running a low- grade fever prompting this consultation. On today's evaluation that is 11/13/2023, the patient continues to be afebrile, the patient is trach collar with FiO2 of 28% patient is breathing comfortably no chest pain or any worsening cough, abdominal discomfort or vomiting or diarrhea has been reported by the nursing staff. Patient did have a white count of 6.4 creatinine is 0.67 Objective - Vital Signs Vital signs: Vital Signs Temp 98.2 F 11/13/23 04:00 Pulse 73 11/13/23 11:54 Resp 16 11/13/23 10:00 BP 138/82 11/13/23 10:00 Pulse Ox 95 11/13/23 10:00 FiO2 28 11/13/23 10:00 Intake & Output 11/12/23 11/13/23 11/13/23 18:59 06:59 18:59 Intake Total 1072.803 84.407 272.608 Output Total 1350 400 600 Balance -277.197 -315.593 -327.392 Weight 62.7 kg 62.7 kg Intake: IV 480 100 Cefepime 2 gm In Sodium 200 100 Chloride 0.9% 100 ml @ 25 mls/hr IVPB Q8HR [facility] Rx# :[id number] Invasive Line 3 30 Vancomycin 1,000 mg In 250 Sodium Chloride 0.9% 250 ml @ 125 mls/hr IVPB Q8H [facility] Rx#:[id number] Intake, IV Titration 162.803 84.407 52.608 Amount Dexmedetomidine/0.9% NaCl 162.803 84.407 52.608 (Pmx) 400 mcg In Empty Bag 1 bag @ 0.2 MCG/KG/HR 3.375 mls/hr IV .Q24H [facility] Rx#:[id number] Tube Feeding 320 90 Other 110 30 Output: Urine 1350 400 600 Other: Voiding Method Urinal Urinal Urinal # Voids 1 # Bowel Movements 0 0 ABP, PAP, CO, CI - Last Documented Arterial Blood Pressure 134/82 - Exam GENERAL DESCRIPTION: Middle-age male lying in bed in no distress RESPIRATORY SYSTEM: Unlabored breathing , decreased breath sounds at bases HEART: S1 S2 regular rate and rhythm , ABDOMEN: Soft , mild distention and tenderness EXTREMITIES: No edema feet - Labs CBC & Chem 7: 11/13/23 05:23 11/13/23 14:45 Labs: Abnormal Lab Results - Last 24 Hours (Table) 11/13/23 11/13/23 Range/Units 05:23 05:23 RBC 3.38 L (4.30-5.90) m/uL Hgb 10.3 L (13.0-17.5) gm/dL Hct 31.4 L (39.0-53.0) % Glucose 108 H (74-99) mg/dL Microbiology - Last 24 Hours (Table) 11/11/23 13:37 Gram Stain - Preliminary Sputum Sputum Culture - Preliminary Presumptive Staph aureus Gram Neg Bacilli 11/07/23 21:28 Blood Culture - Final Blood 11/10/23 10:17 Blood Culture - Preliminary Blood Assessment and Plan (1) Fever Current Visit: Yes Status: Acute Code(s): R50.9 - FEVER, UNSPECIFIED SNOMED Code(s): 417761133 (2) Leukocytosis Current Visit: Yes Status: Acute Code(s): D72.829 - ELEVATED WHITE BLOOD CELL COUNT, UNSPECIFIED SNOMED Code(s): 634201664 (3) Pneumonia Current Visit: Yes Status: Acute Code(s): J18.9 - PNEUMONIA, UNSPECIFIED ORGANISM SNOMED Code(s): 873133530 (4) Alcoholic pancreatitis Current Visit: Yes Status: Acute Code(s): K85.20 - ALCOHOL INDUCED ACUTE PANCREATITIS WITHOUT NECROSIS OR INFCT SNOMED Code(s): 411604091 Plan: 1patient with low-grade fever in this patient with initial admission to the hospital for acute pancreatitis secondary to his alcoholism patient did get intubated because of respiratory distress and did have a positive sputum culture for MSSA on 10/26/2023 patient failed to be extubated and is s/p trach on 11/02/2023 and PEG tube on 11/06/2023 with the etiology of low-grade fever elevated white count is multifactorial question of pneumonia versus abdominal etiology and the patient was noted to have significant abdominal distention and apparently the patient did not have bowel movement for the last 5 to 6 days per the nursing staff 2-patient CT of abdominal pelvis with contrast, did not show any worsening pancreatitis pseudocyst or abscess mild cystitis and effusion 3-patient did have resolution of his fever and the patient white count has normalized, sputum is growing MSSA and Klebsiella 4-patient is currently covered cefepime to continue while inpatient Dictation was produced using [employer] dictation software. please excuse any grammatical, word or spelling errors. Time with Patient: Less than 30
--- NOTE | 2023-11-13 20:38 | P.PN ---
Subjective Progress Note Date: 11/13/23 48-year-old white male with past medical history significant for hypertension, coronary artery disease, current everyday smoker, and alcohol abuse. He was transferred from [facility] 10/22/2023 for acute pancreatitis. He was noted to be intoxicated on arrival to outside facility, with an alcohol level of 34 mg/dL. He required ICU admission for Precedex infusion. He was also noted to have severely elevated lipase and amylase levels. An abdominal and pelvis CT was performed, which identified peripancreatic inflammatory stranding and fluid consistent with acute pancreatitis. No pseudoc yst, abscess, or pancreatic necrosis. No gallstones or ductal dilation. There was decreased attenuation of the hepatic parenchyma, suggestive of fatty infiltration. Patient was dehdydrated and noted to have sustained an WILFRIDO. It appears he was fluid resuscitated with 2 L of crystalloid fluid. He was then transferred to [facility]. CBC from yesterday: WBC count 7.6, hemoglobin 13.9, hematocrit 42, platelets 110. Most recent CMP from yesterday: Sodium 138, potassium 4.4, chloride 108, serum bicarb 19, BUN 18, creatinine 1.13, glucose 94. AST 97, ALT 74, ALP 156, total bilirubin 1. Lipase 11,329 and amylase 1468. Patient is currently lethargic and not making much sense when talking. Unsure of when last drink was. Precedex is infusing at 0.4 mcg/kg/h. He does have bilateral upper extremity soft restraints on, which likely can be discontinued. Blood pressure is noted to be hypertensive, has received a clonidine 0.2 mg patch, which is fallen off and will be replaced. EKG shows normal sinus rhythm without any obvious acute ischemic changes. Patient's pain appears well-managed with current regimen of as needed Dilaudid. He does have some facial grimacing with palpation of the bilateral upper abdomen. Normal saline is infusing at 150 MLS per hour. Currently on room air, in no acute respiratory distress. Afebrile. He has been moved to room 262 in the intensive care unit. -- Plan of care was discussed with patient's mother; reports she was told by family noticed that patient is now qualifying for hospice/palliative care -- Patient condition discussed in great detail; shampoo assistant recommendations discussed with patient also; no plan to consult hospice or palliative care at this time 11/04/2023 Patient is seen and evaluated in room at bedside; discussed with nursing staff; no family members present in the room Patient remains on mechanical ventilator. He is on volume assist-control Blood gases show pO2 of 72, pCO2 47, pH is 7.41. Lab review shows white count 12.5, hemoglobin 9.9, hematocrit 30.3, and platelet count 357,000. Sodium 135, potassium 4.3, chlorides 102, CO2 28, BUN 19, creatinine 0.64. Glucose is 86. Phosphorus 4.7, calcium 9, magnesium 1.9. Sputum from October 25 shows evidence of Staphylococcus aureus. Chest x-ray shows bilateral small effusions, with adjacent atelectasis. -- Plan for PEG tube placement on 11/06/2023; and has been placed back on tube feeding -Intensive care service planning to wean off the fentanyl, patient has been placed on Dilaudid 1 mg every 4 hours -- Patient is status post tracheostomy; PEG tube placement rescheduled for Monday due to nonavailability of OR 11/05/2023 Patient is seen and evaluated in room at bedside; patient remains on mechanical ventilator. Settings include volume assist-control, rate 20, tidal volume 400, FiO2 50%, PEEP of 5. -- Blood gases show pO2 112, pCO2 45, pH is 7.46. The patient is getting lactated Ringer's at 20 cc an hour, propofol at 10 mcg/kg/min, and tube feedings with Nepro, at 10 cc an hour, with a goal of 19. - White count 14, hemoglobin 10.5, hematocrit 31.8, and platelet count 365,000. Sodium 137, potassium 3.7, chlorides 103, CO2 31, BUN 16, creatinine 0.69. Calcium is 9.2. Magnesium 1.9. Sputum from the was positive for Staphylococcus aureus. The patient has completed his antibiotics. Chest x-ray shows bilateral patchy infiltrates, which could be on the basis of fluid, and or pneumonia. 11/06/2023 Patient is seen and evaluated in follow-up today remains on mechanical ventilation with an FiO2 of 50% currently being dropped down to 40% with a PEEP of 5. Patient is status post tracheostomy and currently awaiting to receive a PEG tube today. Tube feedings are on hold and will be resumed once cleared per surgery after 24 hours. Patient remains on propofol with no plans of weaning trial today. Patient did have an attempted weaning trial yesterday and per nursing staff did not tolerate very well. Pulmonary shampoo assistant following with plans on resuming weaning trials tomorrow. Patient is afebrile and has completed a course of antibiotics. Follow-up chest x-ray ordered and pending. 11/07/2023 Patient is seen and evaluated in follow-up status post continued on tracheostomy with an FiO2 of 40% PEEP is 5 as well as PEG tube yesterday. Tube feedings to initiate per surgery today and will monitor for tolerance. Chest x-ray today shows diffuse bilateral infiltrates and small effusion correlate for CHF otherwise findings stable from previous. Blood pressure on the higher side and heart rates into the 1 teens, maintained on verapamil and metoprolol. Patient having low-grade temps and white count is mildly elevated we will repeat cultures including obtaining a sputum culture and urinalysis and initiate Zosyn. Procalcitonin ordered as well. Continue aspiration precautions. Patient is awake and following some commands. Patient is mumbling and attempting to talk. Patient denies pain at this time. 11/08/2023 Patient is seen and evaluated in follow-up continues to be in the ICU currently on pressure support on the vent and off propofol attempting to wean completely off. Patient was having low-grade temps and initial sputum culture showing Staph aureus, repeat sputum and blood cultures ordered as patient white count becoming more elevated and remaining and also tachycardia with concerns of possible pneumonia. Chest x-ray shows diffuse bilateral infiltrate and small effusion correlate for CHF otherwise consider pneumonia. Patient having significant secretions requiring frequent suctioning with concerns of pneumonia. Patient is status post tracheostomy and PEG tube and has been started on tube feedings and tolerating thus far. Working on goal. Will consult infectious disease and appreciate input and recommendations as patient was on antibiotics previously with concerns of aspiration pneumonia although having recurrent fevers and newly elevated white count. Potassium on the lower side will replace per protocol. Procalcitonin is 0.29. Will also add COVID/influenza/RSV testing as patient has had prolonged hospitalization. Patient may be a good candidate for select specialties and a referral will be placed. Social work is following closely. 11/09/2023 Patient is seen in follow-up today continues to be in the ICU with multiple medical consultations following. Infectious disease was consulted and appreciate input and recommendations as patient continues to have some tachycardia, low-grade temps, elevated white count. White count today is 12.4 and hemoglobin is stable at 9.2. Patient is continued on Zosyn for now as CT abdomen pelvis is ordered. Patient is reporting severe abdominal pain in the epigastric pancreatic area. Patient was initially admitted and on antibiotics as sputum culture showed Staph aureus. Patient had been monitored off antibiotics although developing fevers and white count. Preliminary repeat sputum culture showing presumptive staph with gram-negative bacilli and will await finalized culture. Patient also reportedly had not had a bowel movement in 5 days and had a large bowel movement yesterday and will continue with bowel regimen as needed. Awaiting CT report to discuss further with infectious diseas e and other consultations regarding possible select specialties consult. Propofol is off and will continue with current regimen. 11/10/2023 Patient is seen and evaluated in follow-up today with multiple medical consultations following including infectious disease. Patient continues to have fevers underwent CT abdomen with no significant findings noted. Per nursing staff patient continues to be somewhat agitated requiring Precedex as well as continued fevers with preliminary sputum culture repeat showing Staph aureus along with gram-negative bacilli. Patient is being transition to cefepime along with vancomycin and awaiting finalized cultures. Patient is tolerating tube feedings although reduced rate and will continue at a reduced rate for now with close monitoring. Patient continues on pressure support of 7 and PEEP is 5 and FiO2 is 40%.. Chest x-ray showing bilateral lower lobe infiltrates and continues with a mildly elevated white count. Continue weaning trials and adjustments per pulmonary shampoo assistant. Repeated amylase lipase within normal limits. Continuing attempt to wean Precedex. 11/11/2023 Patient is evaluated in the Intensive are unit in follow up. Continues to remain more awake and alert. Plans to continue weaning the patient off the vent as tolerated with plans to attempt the trach collar and voice box. Patient getting frustrated as he is wanting to talk and communicate and difficult to understand. Less agitated today. Continues on IV vancomycin and IV cefepime with sputum cultures positive for staphylococcus aureus and klebsiella pneumoniae. Blood cul tures are negative so far. Blood work today reveals a white blood cell count of 7.8, hemoglobin 8.8, BUN of 14, creatinine of 0.63. Blood sugar is 100. Procalcitonin level remains elevated at 0.24 although improved slightly. 11/12/2023 Patient remains in the ICU. He has been weaned from the mechanical ventilator and has been placed on the trach collar. He continues to attempt to speak and communicate although getting frustrated. He is less agitated however remains on the precedex gtt. Seroquel and librium doses have been adjusted in an attempt to wean off the precedex. Chest xray today reveals mild improvement in the acute cardiopulmonary disease most consistent with CHF. Repeat sputum culture has been taken and pending. Continues on course of IV cefepime. Vancomycin has been discontinued. Blood work remains WNL. 11/13/2023 Patient sitting up in the chair today mood has significantly improved. He is able to write to communicate and wondering about discharge. He remains on the trach collar. Continues with enteral nutrition. Remains on the precedex gtt which is slowly being weaned. Continues on seroquel and librium. Sputum culture repeat remains positive with presumptive staphylococcus aureus, gram negaitve bacilli. Remains on IV cefepime. ID following. White blood cell count 6.4. Hgb stable 10.3. Sodium 140, BUN 16, creatinine 0.67. Fever has resolved. Review of systems: Unable to completely obtain as patient continues with the tracheostomy and attempting to speak although very raspy. Patient is more awake and alert today. Physical exam: Gen: This is a 48-year-old male, well-developed, awake and alert x 2-3. HEENT: Head is atraumatic, normocephalic. Pupils equal, round. Sclerae is anicteric. Tracheostomy in place with thick secretions noted. NECK: Supple. No JVD. No lymphadenopathy. No thyromegaly. LUNGS: Diminished breath sounds bilaterally otherwise clear to auscultation. There is some coarse rhonchi noted at the bases. No intercostal retractions. HEART: S1, S2 are muffled ABDOMEN: Soft. Bowel sounds are present. No masses. Continued tenderness noted on palpation of the pancreatic mid epigastric area. EXTREMITIES: No pedal edema. No calf tenderness. NEUROLOGICAL: Patient is currently awake, alert and oriented x 2-3, more awake and alert, agitated as he attempts to communicate and difficult to talk with the trach collar in place. Assessment: Acute hypoxemic respiratory failure secondary to alcohol withdrawal symptoms and DTs status post tracheostomy and weaned off the mechanical ventilator. Leukocytosis with low-grade temps, concern for pneumonia, sputum culture showing Staph aureus along with Klebsiella pneumonia Status post PEG tube placement Acute alcohol withdrawal symptoms and DTs Intertrigo left groin Uncontrolled hypertension. Improved now. Acute pancreatitis likely alcohol-related, on admission Acute kidney injury likely prerenal; resolved. Severe alcohol abuse Mild transaminitis, improved History of coronary disease Currently everyday smoker GI and DVT prophylaxis Full code Plan: Patient is status post tracheostomy on 11/01/2023. Patient has been transitioned to trach collar FiO2 29%. Infectious disease following and blood cultures thus far negative. Repeat sputum culture showing Staph aureus along with Klebsiella pneumonia. WBC normalized. Repeat sputum remains positive. Vancomycin discontinued and patient continues on IV cefepime. Repeat procalcitonin remains elevated at 0.24 however slightly improved. Attempting to wean off the precedex gtt, seroquel has been increased and librium is now scheduled. Precedex will be slowly weaned. Nystatin powder BID to the left groin Patient tolerating tube feedings thus far and rate has been increased. Physical therapy has been consulted for evaluation. Social work to follow up on monday. Will place consult to select specialties once discussing with other consultations regarding treatment plan moving forward. Patient will likely require insurance authorization as well. Not quite ready for discharge planning as of yet. The impression and plan of care has been dictated by Madelyn Elliott, Nurse Practitioner as directed. Dr. Milton MD I have performed a history and physical examination and medical decision making of this patient, discussed the same with the dictator, and agree with the dictators assessment and plan as written, documented as a scribe. Based on total visit time, I have performed more than 50% of this visit. Objective - Vital Signs Vital signs: Vital Signs Temp 98.2 F 11/13/23 04:00 Pulse 77 11/13/23 08:14 Resp 13 11/13/23 07:00 BP 152/104 11/13/23 07:00 Pulse Ox 98 11/13/23 08:06 FiO2 28 11/13/23 08:06 Intake & Output 11/12/23 11/13/23 11/13/23 18:59 06:59 18:59 Intake Total 1072.803 84.407 Output Total 1350 400 600 Balance -277.197 -315.593 -600 Weight 62.7 kg Intake: IV 480 Cefepime 2 gm In Sodium 200 Chloride 0.9% 100 ml @ 25 mls/hr IVPB Q8HR [facility] Rx# :[id number] Invasive Line 3 30 Vancomycin 1,000 mg In 250 Sodium Chloride 0.9% 250 ml @ 125 mls/hr IVPB Q8H [facility] Rx#:[id number] Intake, IV Titration 162.803 84.407 Amount Dexmedetomidine/0.9% NaCl 162.803 84.407 (Pmx) 400 mcg In Empty Bag 1 bag @ 0.2 MCG/KG/HR 3.375 mls/hr IV .Q24H [facility] Rx#:[id number] Tube Feeding 320 Other 110 Output: Urine 1350 400 600 Other: Voiding Method Urinal Urinal # Voids 1 # Bowel Movements 0 0 ABP, PAP, CO, CI - Last Documented Arterial Blood Pressure 134/82 - Labs CBC & Chem 7: 11/13/23 05:23 11/13/23 14:45 Labs: Abnormal Lab Results - Last 24 Hours (Table) 11/13/23 11/13/23 Range/Units 05:23 05:23 RBC 3.38 L (4.30-5.90) m/uL Hgb 10.3 L (13.0-17.5) gm/dL Hct 31.4 L (39.0-53.0) % Glucose 108 H (74-99) mg/dL Microbiology - Last 24 Hours (Table) 11/07/23 21:28 Blood Culture - Final Blood 11/10/23 10:17 Blood Culture - Preliminary Blood 11/11/23 13:37 Gram Stain - Preliminary Sputum
[2023-11-13] MEDS: NYSTATIN 100,000 UNIT/GM POWD 15 GM TOPICAL SCH (21:18)
[2023-11-13 23:42] LABS: Glucose,Whole Blood 123 mg/dL (70-110)
[2023-11-14] MEDS: HYDROmorphone 1 MG/ML 1 ML SYRINGE IVP PRN (02:22)
[2023-11-14 06:00] LABS: Glucose,Whole Blood 120 mg/dL (70-110)
[2023-11-14 06:25] LABS: Basophils # (A) 0.1 k/uL (0-0.2); Basophils % (A) 1 %; Eosinophils # (A) 0.5 k/uL (0-0.7); Eosinophils % (A) 5 %; HCT 34.1 % (39.0-53.0); HGB 11.2 gm/dL (13.0-17.5); Hypochromasia Slight; Lymphocytes # (A) 1.2 k/uL (1.0-4.8); Lymphocytes % (A) 14 %; MCH 31.1 pg (25.0-35.0); MCHC 32.9 g/dL (31.0-37.0); MCV 94.4 fL (80.0-100.0); Mean Platelet Volume 8.1; Monocytes # (A) 0.5 k/uL (0-1.0); Monocytes % (A) 6 %; Neutrophils # (A) 6.4 k/uL (1.3-7.7); Neutrophils % (A) 74 %; Platelet Count 427 k/uL (150-450); RBC 3.61 m/uL (4.30-5.90); RDW 14.5 % (11.5-15.5); WBC 8.7 k/uL (3.8-10.6)
[2023-11-14 06:40] LABS: African American GFR (CKD) >90 (>60 ml/min/1.73 sqM); Anion Gap 3 mmol/L; Blood Urea Nitrogen 15 mg/dL (9-20); Carbon Dioxide 29 mmol/L (22-30); Chloride 107 mmol/L (98-107); Glucose 108 mg/dL (74-99); Magnesium 1.9 mg/dL (1.6-2.3); Non-African American GFR(CKD) >90 (>60 ml/min/1.73 sqM); Potassium 4.6 mmol/L (3.5-5.1); Sodium 139 mmol/L (137-145)
[2023-11-14] MEDS: MAGNESIUM SULFATE-D5W PMX 1 GM in DEXTROSE/WATER 1 100ML.BAG IVPB ONE (06:50)
[2023-11-14 12:08] LABS: Glucose,Whole Blood 111 mg/dL (70-110)
--- NOTE | 2023-11-14 12:25 | P.PN ---
Subjective Progress Note Date: 11/14/23 CHIEF COMPLAINT: Abdominal pain HISTORY OF PRESENT ILLNESS: Patient status post PEG tube placement on 11/06/23. Patient is status post tracheostomy placement on 11/02/23. Patient is tolerating tube feeds. PHYSICAL EXAM: VITAL SIGNS: Reviewed. GENERAL: no acute distress. Neck: trach site clean, dry and intact ABDOMEN: Soft. Nondistended. Nontender. PEG tube site clean dry and intact ASSESSMENT: 1. Acute hypoxic respiratory failure due to alcohol withdraw syndrome 2. Severe protein calorie malnutrition 3. Acute alcoholic pancreatitis PLAN: -Continue tube feeds -Continue supportive care Physician Carbonation Tester note has been reviewed by physician. Signing provider agrees with the documented findings, assessment, and plan of care. Objective - Vital Signs Vital signs: Vital Signs Temp 97.4 F L 11/14/23 08:00 Pulse 89 11/14/23 11:00 Resp 16 11/14/23 11:00 BP 101/86 11/14/23 11:00 Pulse Ox 97 11/14/23 11:00 FiO2 28 11/14/23 09:08 Intake & Output 11/13/23 11/14/23 11/14/23 18:59 06:59 18:59 Intake Total 663.952 70.188 478.75 Output Total 1700 950 0 Balance -1036.048 -879.812 478.75 Weight 62.7 kg 66.4 kg Intake: IV 240 200 Cefepime 2 gm In Sodium 200 100 Chloride 0.9% 100 ml @ 25 mls/hr IVPB Q8HR [facility] Rx# :[id number] Invasive Line 2 30 Invasive Line 4 10 Magnesium Sulfate-D5w Pmx 100 1 gm In Dextrose/Water 1 100ml.bag @ 100 mls/hr IVPB Q1H [facility] Rx#: [id number] Intake, IV Titration 93.952 70.188 60.75 Amount Dexmedetomidine/0.9% NaCl 93.952 70.188 60.75 (Pmx) 400 mcg In Empty Bag 1 bag @ 0.2 MCG/KG/HR 3.375 mls/hr IV .Q24H [facility] Rx#:[id number] Tube Feeding 270 188 Other 60 30 Output: Urine 1700 950 0 Other: Voiding Method Urinal Urinal # Voids 1 # Bowel Movements 0 ABP, PAP, CO, CI - Last Documented Arterial Blood Pressure 134/82 - Labs CBC & Chem 7: 11/14/23 05:54 11/14/23 05:54 Labs: Abnormal Lab Results - Last 24 Hours (Table) 11/13/23 11/14/23 11/14/23 Range/Units 23:40 05:54 05:54 RBC 3.61 L (4.30-5.90) m/uL Hgb 11.2 L (13.0-17.5) gm/dL Hct 34.1 L (39.0-53.0) % Glucose 108 H (74-99) mg/dL POC Glucose (mg/dL) 123 H (70-110) mg/dL 11/14/23 11/14/23 Range/Units 05:59 12:06 RBC (4.30-5.90) m/uL Hgb (13.0-17.5) gm/dL Hct (39.0-53.0) % Glucose (74-99) mg/dL POC Glucose (mg/dL) 120 H 111 H (70-110) mg/dL Microbiology - Last 24 Hours (Table) 11/10/23 10:17 Blood Culture - Preliminary Blood 11/11/23 13:37 Gram Stain - Preliminary Sputum Sputum Culture - Preliminary Presumptive Staph aureus Gram Neg Bacilli
--- NOTE | 2023-11-14 13:42 | P.PN ---
Subjective Progress Note Date: 11/14/23 Principal diagnosis: Acute alcohol withdrawal 11/11/2023, the patient is being seen for a follow-up. The patient remains on a pressure support mode of mechanical ventilation with a pressure support of 7 and a PEEP of 5. Overnight, he was placed on Precedex and this morning and this is running at 0.3 mcg/kg/h. Otherwise, the patient is calm and comfortable and is not having any major respiratory distress. No significant orotracheal secretions. Enteral feeding is running at the rate of 10 cc an hour and the patient is currently on vital AF. No complaints. Amylase lipase levels are not elevated at this point. Distention. No fever this morning. Note that based on his yesterday's fever episode, the patient was placed on a broad-spectrum antibiotics and was started on vancomycin and cefepime. Repeat sputum Gram stain and culture still pending for now. Nevertheless, since then, the patient has been afebrile.. Hemodynamically stable without any significant hypotension. Blood work shows a WBC count of 7.8 with a hemoglobin 8.8 and a platelet count of 345 and electrolytes are all stable with a BUN of 14 and a creatinine of 0.6 and a sodium level of 137. Patient is on Seroquel 150 mg p.o. twice daily. The patient is also on BuSpar 30 mg p.o. twice daily. Ativan on as-needed basis. Precedex is being weaned off. 11/12/2023, patient is awake and alert. On and off he still requiring Precedex as the patient's agitation waxes and wanes. He is currently on Precedex at 0.7 mcg/kg/h and the patient is very much comfortable. Is currently on trach collar, FiO2 of 28%. Has been off the mechanical ventilator for the past 24 hours. Breathing is comfortable. No respiratory distress. No significant orotracheal secretions. Awaiting sputum Gram stain and culture and patient is currently covered with cefepime and vancomycin. He has afebrile for now. C ontinues to receive enteral feeding for nutritional support and the patient is currently on Nepro at rate of 20 cc an hour. He is also on Seroquel for agitation. He is on BuSpar. Librium will be also added as we are trying to wean this patient off Precedex. He is on Lovenox for DVT prophylaxis. Sitting Dilaudid on an as-needed basis. Adequate urine output. White cell count at 7.9 with a hemoglobin 11.2, BUN 16 with a creatinine of 0.6 and a sodium levels at 137. No abdominal distention. Tolerating diet which is in the form of Nepro, via PEG tube. No abdominal distention. Patient was evaluated today on 11/13/2023, patient remains in the ICU, he is on trach collar at 28% FiO2, patient seems to be calm, however he has his. Swelling in he becomes extremely agitated and restless, still requiring Precedex at 0.6 mcg/kg/h, he is also on Seroquel at 150 twice daily, Librium 50 mg 3 karla es daily and on Ativan as needed. Still not quite ready to be moved out of the ICU, patient is receiving Nepro at 47 cc/h via PEG tube, patient has a trach collar and is receiving 28% FiO2. Chest x-ray continues to show bibasilar infiltrates left more so than right, previously 6.4 hemoglobin 10.3 basic metabolic profile is normal renal profile is normal. Patient remains on cefepime, and his vancomycin was discontinued by Dr. Goddard and remains on GI DVT prophylaxis. Patient was read today on 11/14/2023, patient remains in the ICU, remains on trach collar, he is on Precedex otherwise he gets extremely agitated and restless, his Precedex is down to 0.3 mcg/kg/h. Patient is still receiving Nepro via PEG tube, patient seems to be calm today but according to the nurses he had episodes where he gets extremely agitated. Today I recommended changing his tracheostomy to a Shiley size 6, and this will be fenestrated, will discontinue his Bivona and in fact I went ahead and at bedside proceeded to exchanging the tracheostomy is, and now he has a size 6 Shiley fenestrated, we can now potentially cap the trach intermittently, and eventually consider decannulation. However considering the patient has and continues to have significant amount of purulent secretions, I will keep that in place for now. His chest x-ray is showing improvement in his bilateral interstitial infiltrate/edema. WBC count today is 8.7 hemoglobin is 11.2. Basic metabolic profile is normal and renal profile is normal Objective - Vital Signs Vital signs: Vital Signs Temp 98.4 F 11/14/23 12:00 Pulse 88 11/14/23 12:00 Resp 25 H 11/14/23 12:00 BP 108/83 11/14/23 12:00 Pulse Ox 96 11/14/23 12:00 FiO2 28 11/14/23 12:00 Intake & Output 11/13/23 11/14/23 11/14/23 18:59 06:59 18:59 Intake Total 663.952 70.188 525.75 Output Total 1700 950 225 Balance -1036.048 -879.812 300.75 Weight 62.7 kg 66.4 kg Intake: IV 240 200 Cefepime 2 gm In Sodium 200 100 Chloride 0.9% 100 ml @ 25 mls/hr IVPB Q8HR [facility] Rx# :[id number] Invasive Line 2 30 Invasive Line 4 10 Magnesium Sulfate-D5w Pmx 100 1 gm In Dextrose/Water 1 100ml.bag @ 100 mls/hr IVPB Q1H [facility] Rx#: [id number] Intake, IV Titration 93.952 70.188 60.75 Amount Dexmedetomidine/0.9% NaCl 93.952 70.188 60.75 (Pmx) 400 mcg In Empty Bag 1 bag @ 0.2 MCG/KG/HR 3.375 mls/hr IV .Q24H [facility] Rx#:[id number] Tube Feeding 270 235 Other 60 30 Output: Urine 1700 950 225 Other: Voiding Method Urinal Urinal # Voids 1 # Bowel Movements 0 ABP, PAP, CO, CI - Last Documented Arterial Blood Pressure 134/82 - Exam GENERAL EXAM: Revealed 48-year-old white male, on 28% trach collar, calm, remains on low-dose Precedex. 0.3 mcg/kg/h HEAD: Normocephalic and atraumatic EYES: Normal reaction of pupils, equal size. NOSE: Clear with pink turbinates. THROAT: No erythema or exudates. NECK: No masses, no JVD. CHEST: No chest wall deformity. Symmetrical chest wall expansion LUNGS: Crackles at the bases no rhonchi no wheezes CVS: S1 and S2 normal with no audible murmur, regular rhythm. No extra heart sounds ABDOMEN: Soft nontender no megaly no rebound no guarding SKIN: No rashes CENTRAL NERVOUS SYSTEM: Patient is awake, seems to be oriented x 3, calm. EXTREMITIES: No clubbing edema or cyanosis - Labs CBC & Chem 7: 11/14/23 05:54 11/14/23 05:54 Labs: Abnormal Lab Results - Last 24 Hours (Table) 11/13/23 11/14/23 11/14/23 Range/Units 23:40 05:54 05:54 RBC 3.61 L (4.30-5.90) m/uL Hgb 11.2 L (13.0-17.5) gm/dL Hct 34.1 L (39.0-53.0) % Glucose 108 H (74-99) mg/dL POC Glucose (mg/dL) 123 H (70-110) mg/dL 11/14/23 11/14/23 Range/Units 05:59 12:06 RBC (4.30-5.90) m/uL Hgb (13.0-17.5) gm/dL Hct (39.0-53.0) % Glucose (74-99) mg/dL POC Glucose (mg/dL) 120 H 111 H (70-110) mg/dL Microbiology - Last 24 Hours (Table) 11/11/23 13:37 Gram Stain - Final Sputum Sputum Culture - Final Staphylococcus aureus Klebsiella pneumoniae 11/10/23 10:17 Blood Culture - Preliminary Blood Assessment and Plan Assessment: Impression: Acute hypoxic respiratory failure secondary to acute alcohol withdrawal and unable to protect his airways, required intubation mechanical ventilation on 10/26/2023, required tracheostomy on 11/01 and PEG tube placement on 11/05, tracheostomy changed to a Shiley tracheostomy on 11/13/fenestrated Shiley size 6 Acute alcohol withdrawal with acute alcohol intoxication, patient required a prolonged course of intubation and sedation because of his alcohol withdrawal. Acute pancreatitis, EtOH related. Resolved Abdominal pain, secondary to acute pancreatitis, resolved Acute kidney injury, resolved History of alcoholism Mild transaminitis History of coronary artery disease Current everyday smoker Hypertensive urgency, resolved Acute fever, currently under investigation, covered empirically with cefepime, however his vancomycin has been discontinued by Dr. Goddard. Recommendation: Change tracheostomy to a fenestrated trach and this was done by me today at bedside without any complications. Continue to work on weaning Precedex and possibly discontinue Continue nutritional support/enteral feeding via PEG tube Continue IV fluids Continue GI prophylaxis Continue Lovenox, GI prophylaxis Daily labs including electrolytes and CBC as well as renal profile. Continue Isoptin and metoprolol for his hypertension and for his tachycardia Physical therapy and passive range of motion Continue bronchodilators Patient is not quite ready to be transferred out of the ICU. Continue intermittent diuretics. Patient is critically ill, still requiring Precedex, we are in the process of trying to discontinue if possible in the next 24 hours. Critical care time is over 30 min, not including the time placed on procedures Will continue to follow Time with Patient: Greater than 30
[2023-11-14 18:39] LABS: Glucose,Whole Blood 101 mg/dL (70-110)
--- NOTE | 2023-11-14 20:24 | OP ---
OPERATIVE REPORT DATE OF SERVICE : PROCEDURE PERFORMED: Tracheostomy tube change. ANESTHESIA USED: None deployed. INDICATIONS FOR THE PROCEDURE: For comfort and for capping of the trach and facilitate the weaning process and possible decannulation. DESCRIPTION OF PROCEDURE: The patient was placed in the supine position, the sutures from his Bivona trach were removed easily, and sutures were all removed. Then, the cuff was deflated, and over a stylet, the Bivona tracheostomy was removed fully out of the airways. Then over the stylet which was already in place in the trachea, a size 6.0 fenestrated Shiley was used and advanced over the stylet into the trachea. As it was advanced down the Bovie, the stylet was removed, and the cuff was inflated and the patient was suctioned. Procedure was well tolerated, no complications and no evidence of any bleeding. The trach collar was applied. MMODL / IJN: [id number] /
[2023-11-15 01:06] LABS: Glucose,Whole Blood 103 mg/dL (70-110)
--- NOTE | 2023-11-15 06:04 | P.PN ---
Subjective Progress Note Date: 11/14/23 48-year-old white male with past medical history significant for hypertension, coronary artery disease, current everyday smoker, and alcohol abuse. He was transferred from [facility] 10/22/2023 for acute pancreatitis. He was noted to be intoxicated on arrival to outside facility, with an alcohol level of 34 mg/dL. He required ICU admission for Precedex infusion. He was also noted to have severely elevated lipase and amylase levels. An abdominal and pelvis CT was performed, which identified peripancreatic inflammatory stranding and fluid consistent with acute pancreatitis. No pseudoc yst, abscess, or pancreatic necrosis. No gallstones or ductal dilation. There was decreased attenuation of the hepatic parenchyma, suggestive of fatty infiltration. Patient was dehdydrated and noted to have sustained an WILFRIDO. It appears he was fluid resuscitated with 2 L of crystalloid fluid. He was then transferred to [facility]. CBC from yesterday: WBC count 7.6, hemoglobin 13.9, hematocrit 42, platelets 110. Most recent CMP from yesterday: Sodium 138, potassium 4.4, chloride 108, serum bicarb 19, BUN 18, creatinine 1.13, glucose 94. AST 97, ALT 74, ALP 156, total bilirubin 1. Lipase 11,329 and amylase 1468. Patient is currently lethargic and not making much sense when talking. Unsure of when last drink was. Precedex is infusing at 0.4 mcg/kg/h. He does have bilateral upper extremity soft restraints on, which likely can be discontinued. Blood pressure is noted to be hypertensive, has received a clonidine 0.2 mg patch, which is fallen off and will be replaced. EKG shows normal sinus rhythm without any obvious acute ischemic changes. Patient's pain appears well-managed with current regimen of as needed Dilaudid. He does have some facial grimacing with palpation of the bilateral upper abdomen. Normal saline is infusing at 150 MLS per hour. Currently on room air, in no acute respiratory distress. Afebrile. He has been moved to room 262 in the intensive care unit. -- Plan of care was discussed with patient's mother; reports she was told by family noticed that patient is now qualifying for hospice/palliative care -- Patient condition discussed in great detail; legal word processor recommendations discussed with patient also; no plan to consult hospice or palliative care at this time 11/04/2023 Patient is seen and evaluated in room at bedside; discussed with nursing staff; no family members present in the room Patient remains on mechanical ventilator. He is on volume assist-control Blood gases show pO2 of 72, pCO2 47, pH is 7.41. Lab review shows white count 12.5, hemoglobin 9.9, hematocrit 30.3, and platelet count 357,000. Sodium 135, potassium 4.3, chlorides 102, CO2 28, BUN 19, creatinine 0.64. Glucose is 86. Phosphorus 4.7, calcium 9, magnesium 1.9. Sputum from October 25 shows evidence of Staphylococcus aureus. Chest x-ray shows bilateral small effusions, with adjacent atelectasis. -- Plan for PEG tube placement on 11/06/2023; and has been placed back on tube feeding -Intensive care service planning to wean off the fentanyl, patient has been placed on Dilaudid 1 mg every 4 hours -- Patient is status post tracheostomy; PEG tube placement rescheduled for Monday due to nonavailability of OR 11/05/2023 Patient is seen and evaluated in room at bedside; patient remains on mechanical ventilator. Settings include volume assist-control, rate 20, tidal volume 400, FiO2 50%, PEEP of 5. -- Blood gases show pO2 112, pCO2 45, pH is 7.46. The patient is getting lactated Ringer's at 20 cc an hour, propofol at 10 mcg/kg/min, and tube feedings with Nepro, at 10 cc an hour, with a goal of 19. - White count 14, hemoglobin 10.5, hematocrit 31.8, and platelet count 365,000. Sodium 137, potassium 3.7, chlorides 103, CO2 31, BUN 16, creatinine 0.69. Calcium is 9.2. Magnesium 1.9. Sputum from the was positive for Staphylococcus aureus. The patient has completed his antibiotics. Chest x-ray shows bilateral patchy infiltrates, which could be on the basis of fluid, and or pneumonia. 11/06/2023 Patient is seen and evaluated in follow-up today remains on mechanical ventilation with an FiO2 of 50% currently being dropped down to 40% with a PEEP of 5. Patient is status post tracheostomy and currently awaiting to receive a PEG tube today. Tube feedings are on hold and will be resumed once cleared per surgery after 24 hours. Patient remains on propofol with no plans of weaning trial today. Patient did have an attempted weaning trial yesterday and per nursing staff did not tolerate very well. Pulmonary legal word processor following with plans on resuming weaning trials tomorrow. Patient is afebrile and has completed a course of antibiotics. Follow-up chest x-ray ordered and pending. 11/07/2023 Patient is seen and evaluated in follow-up status post continued on tracheostomy with an FiO2 of 40% PEEP is 5 as well as PEG tube yesterday. Tube feedings to initiate per surgery today and will monitor for tolerance. Chest x-ray today shows diffuse bilateral infiltrates and small effusion correlate for CHF otherwise findings stable from previous. Blood pressure on the higher side and heart rates into the 1 teens, maintained on verapamil and metoprolol. Patient having low-grade temps and white count is mildly elevated we will repeat cultures including obtaining a sputum culture and urinalysis and initiate Zosyn. Procalcitonin ordered as well. Continue aspiration precautions. Patient is awake and following some commands. Patient is mumbling and attempting to talk. Patient denies pain at this time. 11/08/2023 Patient is seen and evaluated in follow-up continues to be in the ICU currently on pressure support on the vent and off propofol attempting to wean completely off. Patient was having low-grade temps and initial sputum culture showing Staph aureus, repeat sputum and blood cultures ordered as patient white count becoming more elevated and remaining and also tachycardia with concerns of possible pneumonia. Chest x-ray shows diffuse bilateral infiltrate and small effusion correlate for CHF otherwise consider pneumonia. Patient having significant secretions requiring frequent suctioning with concerns of pneumonia. Patient is status post tracheostomy and PEG tube and has been started on tube feedings and tolerating thus far. Working on goal. Will consult infectious disease and appreciate input and recommendations as patient was on antibiotics previously with concerns of aspiration pneumonia although having recurrent fevers and newly elevated white count. Potassium on the lower side will replace per protocol. Procalcitonin is 0.29. Will also add COVID/influenza/RSV testing as patient has had prolonged hospitalization. Patient may be a good candidate for select specialties and a referral will be placed. Social work is following closely. 11/09/2023 Patient is seen in follow-up today continues to be in the ICU with multiple medical consultations following. Infectious disease was consulted and appreciate input and recommendations as patient continues to have some tachycardia, low-grade temps, elevated white count. White count today is 12.4 and hemoglobin is stable at 9.2. Patient is continued on Zosyn for now as CT abdomen pelvis is ordered. Patient is reporting severe abdominal pain in the epigastric pancreatic area. Patient was initially admitted and on antibiotics as sputum culture showed Staph aureus. Patient had been monitored off antibiotics although developing fevers and white count. Preliminary repeat sputum culture showing presumptive staph with gram-negative bacilli and will await finalized culture. Patient also reportedly had not had a bowel movement in 5 days and had a large bowel movement yesterday and will continue with bowel regimen as needed. Awaiting CT report to discuss further with infectious diseas e and other consultations regarding possible select specialties consult. Propofol is off and will continue with current regimen. 11/10/2023 Patient is seen and evaluated in follow-up today with multiple medical consultations following including infectious disease. Patient continues to have fevers underwent CT abdomen with no significant findings noted. Per nursing staff patient continues to be somewhat agitated requiring Precedex as well as continued fevers with preliminary sputum culture repeat showing Staph aureus along with gram-negative bacilli. Patient is being transition to cefepime along with vancomycin and awaiting finalized cultures. Patient is tolerating tube feedings although reduced rate and will continue at a reduced rate for now with close monitoring. Patient continues on pressure support of 7 and PEEP is 5 and FiO2 is 40%.. Chest x-ray showing bilateral lower lobe infiltrates and continues with a mildly elevated white count. Continue weaning trials and adjustments per pulmonary legal word processor. Repeated amylase lipase within normal limits. Continuing attempt to wean Precedex. 11/11/2023 Patient is evaluated in the Intensive are unit in follow up. Continues to remain more awake and alert. Plans to continue weaning the patient off the vent as tolerated with plans to attempt the trach collar and voice box. Patient getting frustrated as he is wanting to talk and communicate and difficult to understand. Less agitated today. Continues on IV vancomycin and IV cefepime with sputum cultures positive for staphylococcus aureus and klebsiella pneumoniae. Blood cul tures are negative so far. Blood work today reveals a white blood cell count of 7.8, hemoglobin 8.8, BUN of 14, creatinine of 0.63. Blood sugar is 100. Procalcitonin level remains elevated at 0.24 although improved slightly. 11/12/2023 Patient remains in the ICU. He has been weaned from the mechanical ventilator and has been placed on the trach collar. He continues to attempt to speak and communicate although getting frustrated. He is less agitated however remains on the precedex gtt. Seroquel and librium doses have been adjusted in an attempt to wean off the precedex. Chest xray today reveals mild improvement in the acute cardiopulmonary disease most consistent with CHF. Repeat sputum culture has been taken and pending. Continues on course of IV cefepime. Vancomycin has been discontinued. Blood work remains WNL. 11/13/2023 Patient sitting up in the chair today mood has significantly improved. He is able to write to communicate and wondering about discharge. He remains on the trach collar. Continues with enteral nutrition. Remains on the precedex gtt which is slowly being weaned. Continues on seroquel and librium. Sputum culture repeat remains positive with presumptive staphylococcus aureus, gram negaitve bacilli. Remains on IV cefepime. ID following. White blood cell count 6.4. Hgb stable 10.3. Sodium 140, BUN 16, creatinine 0.67. Fever has resolved. 11/14/2023 Patient remains in the ICU sitting up in the chair today with visitor at the bedside. Trach was changed out to a number 6 shiley and patient reporting feeling like his neck is swelling up. He is able to swallow and does not appear to be in any respiratory distress. He is awake alert oriented and less agitated. Precedex has been weaned further and currrently running at 0.3 mcg/kg/hr. Patient remains on librium and seroquel. Review of systems: Unable to completely obtain as patient continues with the t racheostomy and attempting to speak although very raspy. Patient is more awake and alert today. Physical exam: Gen: This is a 48-year-old male, well-developed, awake and alert x 3 HEENT: Head is atraumatic, normocephalic. Pupils equal, round. Sclerae is anicteric. Tracheostomy in place with thick secretions noted. NECK: Supple. No JVD. No lymphadenopathy. No thyromegaly. LUNGS: Diminished breath sounds bilaterally otherwise clear to auscultation. There is some coarse rhonchi noted at the bases. No intercostal retractions. HEART: S1, S2 are muffled ABDOMEN: Soft. Bowel sounds are present. No masses. Continued tenderness noted on palpation of the pancreatic mid epigastric area. EXTREMITIES: No pedal edema. No calf tenderness. NEUROLOGICAL: Patient is currently awake, alert and oriented x 3 more awake and alert, agitated as he attempts to communicate and difficult to talk with the trach collar in place. Assessment: Acute hypoxemic respiratory failure secondary to alcohol withdrawal symptoms and DTs status post tracheostomy and weaned off the mechanical ventilator. Leukocytosis with low-grade temps, concern for pneumonia, sputum culture showing Staph aureus along with Klebsiella pneumonia Status post PEG tube placement Acute alcohol withdrawal symptoms and DTs Intertrigo left groin Uncontrolled hypertension. Improved now. Acute pancreatitis likely alcohol-related, on admission Acute kidney injury likely prerenal; resolved. Severe alcohol abuse Mild transaminitis, improved History of coronary disease Currently everyday smoker GI and DVT prophylaxis Full code Plan: Patient is status post tracheostomy on 11/01/2023. Patient has been transitioned to trach collar FiO2 29%. Infectious disease following and blood cultures thus far negative. Repeat sputum culture showing Staph aureus along with Klebsiella pneumonia. WBC normalized. Repeat sputum remains positive. Vancomycin discontinued and patient continues on IV cefepime. Repeat procalcitonin remains elevated at 0.24 however slightly improved. Attempting to wean off the precedex gtt, seroquel has been increased and librium is now scheduled. Precedex will be slowly weaned. Nystatin powder BID to the left groin Patient tolerating tube feedings thus far and rate has been increased. Physical therapy has been consulted for evaluation. Social work to follow up on monday. Will place consult to select specialties once discussing with other consultations regarding treatment plan moving forward. Patient will likely require insurance authorization as well. Not quite ready for discharge planning as of yet. The impression and plan of care has been dictated by Madelyn Elliott Nurse Practitioner as directed. Dr. Milton MD I have performed a history and physical examination and medical decision making of this patient, discussed the same with the dictator, and agree with the dictators assessment and plan as written, documented as a scribe. Based on total visit time, I have performed more than 50% of this visit. Objective - Vital Signs Vital signs: Vital Signs Temp 98.4 F 11/14/23 12:00 Pulse 88 05/07/24 14:00 Resp 15 11/14/23 14:00 BP 102/83 11/14/23 14:00 Pulse Ox 97 11/14/23 14:00 FiO2 28 11/14/23 12:00 Intake & Output 11/13/23 11/14/23 11/14/23 18:59 06:59 18:59 Intake Total 663.952 70.188 647.721 Output Total 1700 950 225 Balance -1036.048 -879.812 422.721 Weight 62.7 kg 66.4 kg Intake: IV 240 200 Cefepime 2 gm In Sodium 200 100 Chloride 0.9% 100 ml @ 25 mls/hr IVPB Q8HR [facility] Rx# :[id number] Invasive Line 2 30 Invasive Line 4 10 Magnesium Sulfate-D5w Pmx 100 1 gm In Dextrose/Water 1 100ml.bag @ 100 mls/hr IVPB Q1H [facility] Rx#: [id number] Intake, IV Titration 93.952 70.188 88.721 Amount Dexmedetomidine/0.9% NaCl 93.952 70.188 88.721 (Pmx) 400 mcg In Empty Bag 1 bag @ 0.2 MCG/KG/HR 3.375 mls/hr IV .Q24H [facility] Rx#:[id number] Tube Feeding 270 329 Other 60 30 Output: Urine 1700 950 225 Other: Voiding Method Urinal Urinal # Voids 1 # Bowel Movements 0 ABP, PAP, CO, CI - Last Documented Arterial Blood Pressure 134/82 - Labs CBC & Chem 7: 11/14/23 05:54 11/14/23 05:54 Labs: Abnormal Lab Results - Last 24 Hours (Table) 11/13/23 11/14/23 11/14/23 Range/Units 23:40 05:54 05:54 RBC 3.61 L (4.30-5.90) m/uL Hgb 11.2 L (13.0-17.5) gm/dL Hct 34.1 L (39.0-53.0) % Glucose 108 H (74-99) mg/dL POC Glucose (mg/dL) 123 H (70-110) mg/dL 11/14/23 11/14/23 Range/Units 05:59 12:06 RBC (4.30-5.90) m/uL Hgb (13.0-17.5) gm/dL Hct (39.0-53.0) % Glucose (74-99) mg/dL POC Glucose (mg/dL) 120 H 111 H (70-110) mg/dL Microbiology - Last 24 Hours (Table) 11/11/23 13:37 Gram Stain - Final Sputum Sputum Culture - Final Staphylococcus aureus Klebsiella pneumoniae 11/10/23 10:17 Blood Culture - Preliminary Blood Assessment and Plan Time with Patient: Less than 30
[2023-11-15 06:26] LABS: Basophils # (A) 0.1 k/uL (0-0.2); Basophils % (A) 1 %; Eosinophils # (A) 0.5 k/uL (0-0.7); Eosinophils % (A) 5 %; HCT 32.4 % (39.0-53.0); HGB 10.4 gm/dL (13.0-17.5); Hypochromasia Slight; Lymphocytes # (A) 1.4 k/uL (1.0-4.8); Lymphocytes % (A) 14 %; MCH 30.6 pg (25.0-35.0); MCHC 32.2 g/dL (31.0-37.0); Mean Platelet Volume 8.1; Monocytes # (A) 0.6 k/uL (0-1.0); Monocytes % (A) 6 %; Neutrophils # (A) 7.1 k/uL (1.3-7.7); Neutrophils % (A) 73 %; Platelet Count 406 k/uL (150-450); RBC 3.41 m/uL (4.30-5.90); RDW 14.7 % (11.5-15.5); WBC 9.7 k/uL (3.8-10.6)
[2023-11-15 06:35] LABS: African American GFR (CKD) >90 (>60 ml/min/1.73 sqM); Anion Gap 3 mmol/L; Blood Urea Nitrogen 16 mg/dL (9-20); Calcium 10.1 mg/dL (8.4-10.2); Carbon Dioxide 30 mmol/L (22-30); Chloride 106 mmol/L (98-107); Glucose 92 mg/dL (74-99); Magnesium 1.9 mg/dL (1.6-2.3); Non-African American GFR(CKD) >90 (>60 ml/min/1.73 sqM); Potassium 3.8 mmol/L (3.5-5.1); Sodium 139 mmol/L (137-145)
[2023-11-15] MEDS: MAGNESIUM SULFATE-D5W PMX 1 GM in DEXTROSE/WATER 1 100ML.BAG IVPB ONE (08:13)
[2023-11-15] MEDS: POTASSIUM BICARBONATE/CIT AC 20 MEQ TABLET.EFF NG-TUBE SCH (08:17)
--- NOTE | 2023-11-15 11:50 | P.PN ---
Subjective Progress Note Date: 11/15/23 Principal diagnosis: Acute alcohol withdrawal 11/11/2023, the patient is being seen for a follow-up. The patient remains on a pressure support mode of mechanical ventilation with a pressure support of 7 and a PEEP of 5. Overnight, he was placed on Precedex and this morning and this is running at 0.3 mcg/kg/h. Otherwise, the patient is calm and comfortable and is not having any major respiratory distress. No significant orotracheal secretions. Enteral feeding is running at the rate of 10 cc an hour and the patient is currently on vital AF. No complaints. Amylase lipase levels are not elevated at this point. Distention. No fever this morning. Note that based on his yesterday's fever episode, the patient was placed on a broad-spectrum antibiotics and was started on vancomycin and cefepime. Repeat sputum Gram stain and culture still pending for now. Nevertheless, since then, the patient has been afebrile.. Hemodynamically stable without any significant hypotension. Blood work shows a WBC count of 7.8 with a hemoglobin 8.8 and a platelet count of 345 and electrolytes are all stable with a BUN of 14 and a creatinine of 0.6 and a sodium level of 137. Patient is on Seroquel 150 mg p.o. twice daily. The patient is also on BuSpar 30 mg p.o. twice daily. Ativan on as-needed basis. Precedex is being weaned off. 11/12/2023, patient is awake and alert. On and off he still requiring Precedex as the patient's agitation waxes and wanes. He is currently on Precedex at 0.7 mcg/kg/h and the patient is very much comfortable. Is currently on trach collar, FiO2 of 28%. Has been off the mechanical ventilator for the past 24 hours. Breathing is comfortable. No respiratory distress. No significant orotracheal secretions. Awaiting sputum Gram stain and culture and patient is currently covered with cefepime and vancomycin. He has afebrile for now. C ontinues to receive enteral feeding for nutritional support and the patient is currently on Nepro at rate of 20 cc an hour. He is also on Seroquel for agitation. He is on BuSpar. Librium will be also added as we are trying to wean this patient off Precedex. He is on Lovenox for DVT prophylaxis. Sitting Dilaudid on an as-needed basis. Adequate urine output. White cell count at 7.9 with a hemoglobin 11.2, BUN 16 with a creatinine of 0.6 and a sodium levels at 137. No abdominal distention. Tolerating diet which is in the form of Nepro, via PEG tube. No abdominal distention. Patient was evaluated today on 11/13/2023, patient remains in the ICU, he is on trach collar at 28% FiO2, patient seems to be calm, however he has his. Swelling in he becomes extremely agitated and restless, still requiring Precedex at 0.6 mcg/kg/h, he is also on Seroquel at 150 twice daily, Librium 50 mg 3 karla es daily and on Ativan as needed. Still not quite ready to be moved out of the ICU, patient is receiving Nepro at 47 cc/h via PEG tube, patient has a trach collar and is receiving 28% FiO2. Chest x-ray continues to show bibasilar infiltrates left more so than right, previously 6.4 hemoglobin 10.3 basic metabolic profile is normal renal profile is normal. Patient remains on cefepime, and his vancomycin was discontinued by Dr. Goddard and remains on GI DVT prophylaxis. Patient was read today on 11/14/2023, patient remains in the ICU, remains on trach collar, he is on Precedex otherwise he gets extremely agitated and restless, his Precedex is down to 0.3 mcg/kg/h. Patient is still receiving Nepro via PEG tube, patient seems to be calm today but according to the nurses he had episodes where he gets extremely agitated. Today I recommended changing his tracheostomy to a Shiley size 6, and this will be fenestrated, will discontinue his Bivona and in fact I went ahead and at bedside proceeded to exchanging the tracheostomy is, and now he has a size 6 Shiley fenestrated, we can now potentially cap the trach intermittently, and eventually consider decannulation. However considering the patient has and continues to have significant amount of purulent secretions, I will keep that in place for now. His chest x-ray is showing improvement in his bilateral interstitial infiltrate/edema. WBC count today is 8.7 hemoglobin is 11.2. Basic metabolic profile is normal and renal profile is normal Patient was seen and examined today on 11/15/2023, remains in the ICU, still requiring a low-dose of Precedex otherwise he gets extremely agitated, patient had his tracheostomy tube changed to a Shiley tube, feels much better now that you could have a speaking valve on discharge with tube/fenestrated tube and the patient could talk. Patient again has a speaking valve on the tube, and is wo rking fine. Remains on Precedex at 0.1 mcg/kg/h remains on Nepro via PEG tube, remains on antibiotics in the form of cefepime, patient had MSSA and Klebsiella in the sputum.WBC count is 9.7 hemoglobin 10.4 basic metabolic profile is normal transfer tech Objective - Vital Signs Vital signs: Vital Signs Temp 98.5 F 11/15/23 08:00 Pulse 87 11/15/23 11:00 Resp 18 11/15/23 11:00 BP 127/88 11/15/23 11:00 Pulse Ox 95 11/15/23 11:00 FiO2 28 11/14/23 12:00 Intake & Output 11/14/23 11/15/23 11/15/23 18:59 06:59 18:59 Intake Total 917.809 839 320.713 Output Total 375 370 180 Balance 542.809 469 140.713 Weight 66.7 kg Intake: IV 275 125 75 Cefepime 2 gm In Sodium 175 125 75 Chloride 0.9% 100 ml @ 25 mls/hr IVPB Q8HR [facility] Rx# :[id number] Magnesium Sulfate-D5w Pmx 100 1 gm In Dextrose/Water 1 100ml.bag @ 100 mls/hr IVPB Q1H [facility] Rx#: [id number] Intake, IV Titration 95.809 57.713 Amount Dexmedetomidine/0.9% NaCl 95.809 57.713 (Pmx) 400 mcg In Empty Bag 1 bag @ 0.2 MCG/KG/HR 3.375 mls/hr IV .Q24H [facility] Rx#:[id number] Tube Feeding 517 564 188 Other 30 150 Output: Urine 375 370 180 Other: Voiding Method Urinal Urinal # Voids 1 # Bowel Movements 1 ABP, PAP, CO, CI - Last Documented Arterial Blood Pressure 134/82 - Exam GENERAL EXAM: Revealed 48-year-old white male, on 28% trach collar, calm, remains on low-dose Precedex. 0.1 mcg/kg/h HEAD: Normocephalic and atraumatic EYES: Normal reaction of pupils, equal size. NOSE: Clear with pink turbinates. THROAT: No erythema or exudates. NECK: No masses, no JVD. CHEST: No chest wall deformity. Symmetrical chest wall expansion LUNGS: Scattered rhonchi noted bilaterally patient continues to have lots of secretion CVS: S1 and S2 normal with no audible murmur, regular rhythm. No extra heart sounds ABDOMEN: Soft nontender no megaly no rebound no guarding SKIN: No rashes CENTRAL NERVOUS SYSTEM: Patient is awake, seems to be oriented x 3, calm. EXTREMITIES: No clubbing edema or cyanosis - Labs CBC & Chem 7: 11/15/23 05:52 11/15/23 05:52 Labs: Abnormal Lab Results - Last 24 Hours (Table) 11/14/23 11/15/23 Range/Units 12:06 05:52 RBC 3.41 L (4.30-5.90) m/uL Hgb 10.4 L (13.0-17.5) gm/dL Hct 32.4 L (39.0-53.0) % POC Glucose (mg/dL) 111 H (70-110) mg/dL Microbiology - Last 24 Hours (Table) 11/11/23 13:37 Gram Stain - Final Sputum Sputum Culture - Final Staphylococcus aureus Klebsiella pneumoniae Assessment and Plan Assessment: Impression: Acute hypoxic respiratory failure secondary to acute alcohol withdrawal and unable to protect his airways, required intubation mechanical ventilation on 10/26/2023, required tracheostomy on 11/01 and PEG tube placement on 11/05, tracheostomy changed to a Shiley tracheostomy on 11/13/fenestrated Shiley size 6 Acute alcohol withdrawal with acute alcohol intoxication, patient required a prolonged course of intubation and sedation because of his alcohol withdrawal. Acute pancreatitis, EtOH related. Resolved Abdominal pain, secondary to acute pancreatitis, resolved Acute kidney injury, resolved History of alcoholism Mild transaminitis History of coronary artery disease Current everyday smoker Hypertensive urgency, resolved Acute fever, currently under investigation, covered empirically with cefepime, however his vancomycin has been discontinued by Dr. Goddard. Recommendation: Continue present supportive care measures Continue bronchodilators Continue antibiotics Continue suctioning of endotracheal tube Continue and titrate Precedex as per protocol Continue IV fluids Continue GI prophylaxis Continue Lovenox, GI prophylaxis Continue physical therapy Intermittently diuresis Psychiatric consultation Will continue to follow Time with Patient: Less than 30
[2023-11-15 12:02] LABS: Glucose,Whole Blood 109 mg/dL (70-110)
--- NOTE | 2023-11-15 13:53 | P.PN ---
Subjective Progress Note Date: 11/15/23 CHIEF COMPLAINT: Abdominal pain HISTORY OF PRESENT ILLNESS: Patient status post PEG tube placement on 11/06/23. Patient is status post tracheostomy placement on 11/02/23. Patient had his tracheostomy tube changed to a Shiley tube. Patient is tolerating tube feeds. PHYSICAL EXAM: VITAL SIGNS: Reviewed. GENERAL: no acute distress. Neck: trach site clean, dry and intact. ABDOMEN: Soft. Nondistended. Nontender. PEG tube site clean dry and intact ASSESSMENT: 1. Acute hypoxic respiratory failure due to alcohol withdraw syndrome 2. Severe protein calorie malnutrition 3. 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 Signing provider agrees with the documented findings, assessment, and plan of care. Objective - Vital Signs Vital signs: Vital Signs Temp 98.5 F 11/15/23 08:00 Pulse 85 11/15/23 10:00 Resp 14 11/15/23 10:00 BP 117/79 11/15/23 10:00 Pulse Ox 94 L 11/15/23 10:00 FiO2 28 11/14/23 12:00 Intake & Output 11/14/23 11/15/23 11/15/23 18:59 06:59 18:59 Intake Total 917.809 839 248.713 Output Total 375 370 180 Balance 542.809 469 68.713 Weight 66.7 kg Intake: IV 275 125 50 Cefepime 2 gm In Sodium 175 125 50 Chloride 0.9% 100 ml @ 25 mls/hr IVPB Q8HR [facility] Rx# :[id number] Magnesium Sulfate-D5w Pmx 100 1 gm In Dextrose/Water 1 100ml.bag @ 100 mls/hr IVPB Q1H [facility] Rx#: [id number] Intake, IV Titration 95.809 57.713 Amount Dexmedetomidine/0.9% NaCl 95.809 57.713 (Pmx) 400 mcg In Empty Bag 1 bag @ 0.2 MCG/KG/HR 3.375 mls/hr IV .Q24H [facility] Rx#:[id number] Tube Feeding 517 564 141 Other 30 150 Output: Urine 375 370 180 Other: Voiding Method Urinal Urinal ABP, PAP, CO, CI - Last Documented Arterial Blood Pressure 134/82 - Labs CBC & Chem 7: 11/15/23 05:52 11/15/23 05:52 Labs: Abnormal Lab Results - Last 24 Hours (Table) 11/14/23 11/15/23 Range/Units 12:06 05:52 RBC 3.41 L (4.30-5.90) m/uL Hgb 10.4 L (13.0-17.5) gm/dL Hct 32.4 L (39.0-53.0) % POC Glucose (mg/dL) 111 H (70-110) mg/dL Microbiology - Last 24 Hours (Table) 11/11/23 13:37 Gram Stain - Final Sputum Sputum Culture - Final Staphylococcus aureus Klebsiella pneumoniae
--- NOTE | 2023-11-15 14:01 | P.CN ---
Psychiatric Consult - . Consult date: 11/15/23 Consult:: 11/15/23 13:03 IDENTIFYING DATA: This patient is a 28-year-old male, currently lives with his mother in a house, he has 1 daughter REASON FOR REFERRAL: Psychiatry was consulted for psychiatric med management HISTORY OF PRESENT ILLNESS: The patient presented to the hospital initially on 10/22 from [place] as a transfer, he was transferred for acute pancreatitis, had a history of chronic alcohol abuse. Patient was in the ICU for several days, he was on Precedex. Patient had a PEG tube placed on 11/05, trach placed on 11/01. Patient had respiratory failure. He was not able to protect his airways. Patient was seen at the bedside awake, he was agreeable to speak to underwriter solicitation director, he had fair attention span. He was gurgling at times, denied any depression or anxiety. States that he knows today's date, he knows his current location is his name as well. He denies any paranoia. He spoke about having boredom while being in the hospital, he was asking when he will be released from the hospital. He seemed to have fair attention span. At this time patient denies any suicidal or homical ideations, intent or plan. Patient denies any auditory, visual hallucinations and denies any paranoia or delusions. Patients admits to using alcohol, was drinking about a 12 pack of beer per day. Nurse taking care of patient states that patient was possibly withdrawing from substances including alcohol and apparently when the Precedex was turned off patient became more agitated and combative and confused. PAST PSYCHIATRIC HISTORY: Patient has a a history of alcohol use disorder. Patient denies being on any psychiatric medications. Patient denies any previous psychiatric hospitalizations. Patient denies any psychiatric outpatient follow-up. Patient denies any history of suicide attempts in the past. PAST MEDICAL HISTORY: As per medical H&P ALLERGIES: as per EMR. CHEMICAL DEPENDENCY HISTORY: as per HPI. 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 Claims that he has 1 daughter Micheline currently lives in a house with his mother. Claims that he finished high school denies any legal history. MENTAL STATUS EXAM: General Appearance: Patient appears to be thin, has a trach tube with a speaking valve, stated age is alert, attempts to be cooperative. Patient appears to have fair hygiene and grooming wearing hospital gown with fair eye contact. Behavior: Patient is calmly lying in bed without any agitated behavior. Attempts to cooperate. Speech: Patient's speech is apical to comprehend due to gurgling Mood/Affect: Patient reports their mood is "ok", affect is congruent Suicidality/Homicidality: Patient denies having any suicidal or homicidal ideation intent or plan. Perceptions: Patient denies any visual hallucinations and denies any auditory hallucinations Though content/process: There is no evidence of any delusional thought content and thought process is linear and goal-directed. [place], vague Memory and concentration: AOX3, grossly intact for the purposes of this session. Can spell "WORLD" backwards Judgment and insight: poor IMPRESSIONS: Delirium, likely multifactorial including ICU delirium, toxic metabolic etc. Alcohol use disorder, severe dependence PLAN: -At this time patient DOES NOT meet criteria for inpatient psychiatric admission. -Delirium precautions recommended with patient including - avoiding use of narcotics and MAIL CALLER sedatives, limit anticholinergic medications when possible, frequent re-orientation, minimize use of restraints, open window shades during the day and close them at night -Would recommend the following medication changes/additions: Please attempt to limit the use of benzodiazepines including Ativan and Xanax Valium and also steroids and antihistamine medications as this will precipitate and likely worsen patient's confusion and delirium. Can continue with Seroquel as prescribed, will attempt to titrate down at a later point. Continue with BuSpar 30 mg twice daily for anxiety, will attempt to decrease Librium dose to 20 mg every 4 hours with attempt to titrate off, continue to titrate Precedex off. Ordered Prolixin IM or p.o. as needed for agitation/aggression. -Communicated plan to patient's nurse -Will continue to follow along -Please contact with any questions. 11/15/23 13:55
--- NOTE | 2023-11-15 15:56 | P.PN ---
Subjective Progress Note Date: 11/15/23 48-year-old white male with past medical history significant for hypertension, coronary artery disease, current everyday smoker, and alcohol abuse. He was transferred from [facility] 10/22/2023 for acute pancreatitis. He was noted to be intoxicated on arrival to outside facility, with an alcohol level of 34 mg/dL. He required ICU admission for Precedex infusion. He was also noted to have severely elevated lipase and amylase levels. An abdominal and pelvis CT was performed, which identified peripancreatic inflammatory stranding and fluid consistent with acute pancreatitis. No pseudoc yst, abscess, or pancreatic necrosis. No gallstones or ductal dilation. There was decreased attenuation of the hepatic parenchyma, suggestive of fatty infiltration. Patient was dehdydrated and noted to have sustained an WILFRIDO. It appears he was fluid resuscitated with 2 L of crystalloid fluid. He was then transferred to [facility]. CBC from yesterday: WBC count 7.6, hemoglobin 13.9, hematocrit 42, platelets 110. Most recent CMP from yesterday: Sodium 138, potassium 4.4, chloride 108, serum bicarb 19, BUN 18, creatinine 1.13, glucose 94. AST 97, ALT 74, ALP 156, total bilirubin 1. Lipase 11,329 and amylase 1468. Patient is currently lethargic and not making much sense when talking. Unsure of when last drink was. Precedex is infusing at 0.4 mcg/kg/h. He does have bilateral upper extremity soft restraints on, which likely can be discontinued. Blood pressure is noted to be hypertensive, has received a clonidine 0.2 mg patch, which is fallen off and will be replaced. EKG shows normal sinus rhythm without any obvious acute ischemic changes. Patient's pain appears well-managed with current regimen of as needed Dilaudid. He does have some facial grimacing with palpation of the bilateral upper abdomen. Normal saline is infusing at 150 MLS per hour. Currently on room air, in no acute respiratory distress. Afebrile. He has been moved to room 262 in the intensive care unit. -- Plan of care was discussed with patient's mother; reports she was told by family noticed that patient is now qualifying for hospice/palliative care -- Patient condition discussed in great detail; health education aide recommendations discussed with patient also; no plan to consult hospice or palliative care at this time 11/04/2023 Patient is seen and evaluated in room at bedside; discussed with nursing staff; no family members present in the room Patient remains on mechanical ventilator. He is on volume assist-control Blood gases show pO2 of 72, pCO2 47, pH is 7.41. Lab review shows white count 12.5, hemoglobin 9.9, hematocrit 30.3, and platelet count 357,000. Sodium 135, potassium 4.3, chlorides 102, CO2 28, BUN 19, creatinine 0.64. Glucose is 86. Phosphorus 4.7, calcium 9, magnesium 1.9. Sputum from October 25 shows evidence of Staphylococcus aureus. Chest x-ray shows bilateral small effusions, with adjacent atelectasis. -- Plan for PEG tube placement on 11/06/2023; and has been placed back on tube feeding -Intensive care service planning to wean off the fentanyl, patient has been placed on Dilaudid 1 mg every 4 hours -- Patient is status post tracheostomy; PEG tube placement rescheduled for Monday due to nonavailability of OR 11/05/2023 Patient is seen and evaluated in room at bedside; patient remains on mechanical ventilator. Settings include volume assist-control, rate 20, tidal volume 400, FiO2 50%, PEEP of 5. -- Blood gases show pO2 112, pCO2 45, pH is 7.46. The patient is getting lactated Ringer's at 20 cc an hour, propofol at 10 mcg/kg/min, and tube feedings with Nepro, at 10 cc an hour, with a goal of 19. - White count 14, hemoglobin 10.5, hematocrit 31.8, and platelet count 365,000. Sodium 137, potassium 3.7, chlorides 103, CO2 31, BUN 16, creatinine 0.69. Calcium is 9.2. Magnesium 1.9. Sputum from the was positive for Staphylococcus aureus. The patient has completed his antibiotics. Chest x-ray shows bilateral patchy infiltrates, which could be on the basis of fluid, and or pneumonia. 11/06/2023 Patient is seen and evaluated in follow-up today remains on mechanical ventilation with an FiO2 of 50% currently being dropped down to 40% with a PEEP of 5. Patient is status post tracheostomy and currently awaiting to receive a PEG tube today. Tube feedings are on hold and will be resumed once cleared per surgery after 24 hours. Patient remains on propofol with no plans of weaning trial today. Patient did have an attempted weaning trial yesterday and per nursing staff did not tolerate very well. Pulmonary health education aide following with plans on resuming weaning trials tomorrow. Patient is afebrile and has completed a course of antibiotics. Follow-up chest x-ray ordered and pending. 11/07/2023 Patient is seen and evaluated in follow-up status post continued on tracheostomy with an FiO2 of 40% PEEP is 5 as well as PEG tube yesterday. Tube feedings to initiate per surgery today and will monitor for tolerance. Chest x-ray today shows diffuse bilateral infiltrates and small effusion correlate for CHF otherwise findings stable from previous. Blood pressure on the higher side and heart rates into the 1 teens, maintained on verapamil and metoprolol. Patient having low-grade temps and white count is mildly elevated we will repeat cultures including obtaining a sputum culture and urinalysis and initiate Zosyn. Procalcitonin ordered as well. Continue aspiration precautions. Patient is awake and following some commands. Patient is mumbling and attempting to talk. Patient denies pain at this time. 11/08/2023 Patient is seen and evaluated in follow-up continues to be in the ICU currently on pressure support on the vent and off propofol attempting to wean completely off. Patient was having low-grade temps and initial sputum culture showing Staph aureus, repeat sputum and blood cultures ordered as patient white count becoming more elevated and remaining and also tachycardia with concerns of possible pneumonia. Chest x-ray shows diffuse bilateral infiltrate and small effusion correlate for CHF otherwise consider pneumonia. Patient having significant secretions requiring frequent suctioning with concerns of pneumonia. Patient is status post tracheostomy and PEG tube and has been started on tube feedings and tolerating thus far. Working on goal. Will consult infectious disease and appreciate input and recommendations as patient was on antibiotics previously with concerns of aspiration pneumonia although having recurrent fevers and newly elevated white count. Potassium on the lower side will replace per protocol. Procalcitonin is 0.29. Will also add COVID/influenza/RSV testing as patient has had prolonged hospitalization. Patient may be a good candidate for select specialties and a referral will be placed. Social work is following closely. 11/09/2023 Patient is seen in follow-up today continues to be in the ICU with multiple medical consultations following. Infectious disease was consulted and appreciate input and recommendations as patient continues to have some tachycardia, low-grade temps, elevated white count. White count today is 12.4 and hemoglobin is stable at 9.2. Patient is continued on Zosyn for now as CT abdomen pelvis is ordered. Patient is reporting severe abdominal pain in the epigastric pancreatic area. Patient was initially admitted and on antibiotics as sputum culture showed Staph aureus. Patient had been monitored off antibiotics although developing fevers and white count. Preliminary repeat sputum culture showing presumptive staph with gram-negative bacilli and will await finalized culture. Patient also reportedly had not had a bowel movement in 5 days and had a large bowel movement yesterday and will continue with bowel regimen as needed. Awaiting CT report to discuss further with infectious diseas e and other consultations regarding possible select specialties consult. Propofol is off and will continue with current regimen. 11/10/2023 Patient is seen and evaluated in follow-up today with multiple medical consultations following including infectious disease. Patient continues to have fevers underwent CT abdomen with no significant findings noted. Per nursing staff patient continues to be somewhat agitated requiring Precedex as well as continued fevers with preliminary sputum culture repeat showing Staph aureus along with gram-negative bacilli. Patient is being transition to cefepime along with vancomycin and awaiting finalized cultures. Patient is tolerating tube feedings although reduced rate and will continue at a reduced rate for now with close monitoring. Patient continues on pressure support of 7 and PEEP is 5 and FiO2 is 40%.. Chest x-ray showing bilateral lower lobe infiltrates and continues with a mildly elevated white count. Continue weaning trials and adjustments per pulmonary health education aide. Repeated amylase lipase within normal limits. Continuing attempt to wean Precedex. 11/11/2023 Patient is evaluated in the Intensive are unit in follow up. Continues to remain more awake and alert. Plans to continue weaning the patient off the vent as tolerated with plans to attempt the trach collar and voice box. Patient getting frustrated as he is wanting to talk and communicate and difficult to understand. Less agitated today. Continues on IV vancomycin and IV cefepime with sputum cultures positive for staphylococcus aureus and klebsiella pneumoniae. Blood cul tures are negative so far. Blood work today reveals a white blood cell count of 7.8, hemoglobin 8.8, BUN of 14, creatinine of 0.63. Blood sugar is 100. Procalcitonin level remains elevated at 0.24 although improved slightly. 11/12/2023 Patient remains in the ICU. He has been weaned from the mechanical ventilator and has been placed on the trach collar. He continues to attempt to speak and communicate although getting frustrated. He is less agitated however remains on the precedex gtt. Seroquel and librium doses have been adjusted in an attempt to wean off the precedex. Chest xray today reveals mild improvement in the acute cardiopulmonary disease most consistent with CHF. Repeat sputum culture has been taken and pending. Continues on course of IV cefepime. Vancomycin has been discontinued. Blood work remains WNL. 11/13/2023 Patient sitting up in the chair today mood has significantly improved. He is able to write to communicate and wondering about discharge. He remains on the trach collar. Continues with enteral nutrition. Remains on the precedex gtt which is slowly being weaned. Continues on seroquel and librium. Sputum culture repeat remains positive with presumptive staphylococcus aureus, gram negaitve bacilli. Remains on IV cefepime. ID following. White blood cell count 6.4. Hgb stable 10.3. Sodium 140, BUN 16, creatinine 0.67. Fever has resolved. 11/14/2023 Patient remains in the ICU sitting up in the chair today with visitor at the bedside. Trach was changed out to a number 6 shiley and patient reporting feeling like his neck is swelling up. He is able to swallow and does not appear to be in any respiratory distress. He is awake alert oriented and less agitated. Precedex has been weaned further and currrently running at 0.3 mcg/kg/hr. Patient remains on librium and seroquel. 11/15/2023 Patient is evaluated today sitting up in the intensive care unit he is resting in bed. Patient continues with the trach collar and has been off the mechanical ventilator for 2 days now. Additionally patient is scheduled to come off of the Precedex drip later on this afternoon and will be monitored overnight. He continues on Librium and Seroquel. His sputum culture is still positive for Klebsiella and staphylococcus aureus. Patient's mom is concerned about getting referrals for discharge as she feels he "" still has pneumonia" ID is following with this patient closely and he remains on IV cefepime while inpatient. His electrolytes are WNL and his white blood cell count has normalized. Review of systems: Unable to completely obtain as patient continues with the tracheostomy and attempting to speak although very raspy. Patient is more awake and alert today. Physical exam: Gen: This is a 48-year-old male, well-developed, awake and alert x 3 HEENT: Head is atraumatic, normocephalic. Pupils equal, round. Sclerae is anicteric. Tracheostomy in place with thick secretions noted. NECK: Supple. No JVD. No lymphadenopathy. No thyromegaly. LUNGS: Diminished breath sounds bilaterally otherwise clear to auscultation. There is some coarse rhonchi noted at the bases. No intercostal retractions. HEART: S1, S2 are muffled ABDOMEN: Soft. Bowel sounds are present. No masses. Continued tenderness noted on palpation of the pancreatic mid epigastric area. EXTREMITIES: No pedal edema. No calf tenderness. NEUROLOGICAL: Patient is currently awake, alert and oriented x 3 more awake and alert, agitated as he attempts to communicate and difficult to talk with the trach collar in place. Assessment: Acute hypoxemic respiratory failure secondary to alcohol withdrawal symptoms and DTs status post tracheostomy and weaned off the mechanical ventilator. Leukocytosis with low-grade temps, concern for pneumonia, sputum culture showing Staph aureus along with Klebsiella pneumonia Status post PEG tube placement Acute alcohol withdrawal symptoms and DTs Intertrigo left groin Uncontrolled hypertension. Improved now. Acute pancreatitis likely alcohol-related, on admission Acute kidney injury likely prerenal; resolved. Severe alcohol abuse Mild transaminitis, improved History of coronary disease Currently everyday smoker GI and DVT prophylaxis Full code Plan: Patient is status post tracheostomy on 11/01/2023. Patient has been transitioned to trach collar FiO2 29%. Infectious disease following and blood cultures thus far negative. Repeat sputu m culture showing Staph aureus along with Klebsiella pneumonia. WBC normalized. Repeat sputum remains positive. Vancomycin discontinued and patient continues on IV cefepime. Repeat procalcitonin remains elevated at 0.24 however slightly improved. Attempting to wean off the precedex gtt, seroquel has been increased and librium is now scheduled. Precedex planned to be shut off later this afternoon. Psychiatric consulted for adjustment of medications. Nystatin powder BID to the left groin Patient tolerating tube feedings thus far and rate has been increased. Physical therapy has been consulted for evaluation. Pending discharge to subacute rehab vs. LTAC and this was discussed with social work and patients mother and plan will be re evaluated tomorrow after patient has been monitored off the precedex gtt. The impression and plan of care has been dictated by Madelyn Elliott, Nurse Practitioner as directed. Dr. Milton MD I have performed a history and physical examination and medical decision making of this patient, discussed the same with the dictator, and agree with the dictators assessment and plan as written, documented as a scribe. Based on total visit time, I have performed more than 50% of this visit. Objective - Vital Signs Vital signs: Vital Signs Temp 98.5 F 11/15/23 08:00 Pulse 92 11/15/23 08:00 Resp 12 11/15/23 08:00 BP 142/99 11/15/23 08:00 Pulse Ox 94 L 11/15/23 08:00 FiO2 28 11/14/23 12:00 Intake & Output 11/14/23 11/15/23 11/15/23 18:59 06:59 18:59 Intake Total 917.809 839 104.713 Output Total 375 370 0 Balance 542.809 469 104.713 Weight 66.7 kg Intake: IV 275 125 Cefepime 2 gm In Sodium 175 125 Chloride 0.9% 100 ml @ 25 mls/hr IVPB Q8HR [facility] Rx# :[id number] Magnesium Sulfate-D5w Pmx 100 1 gm In Dextrose/Water 1 100ml.bag @ 100 mls/hr IVPB Q1H [facility] Rx#: [id number] Intake, IV Titration 95.809 57.713 Amount Dexmedetomidine/0.9% NaCl 95.809 57.713 (Pmx) 400 mcg In Empty Bag 1 bag @ 0.2 MCG/KG/HR 3.375 mls/hr IV .Q24H [facility] Rx#:[id number] Tube Feeding 517 564 47 Other 30 150 Output: Urine 375 370 0 Other: Voiding Method Urinal Urinal ABP, PAP, CO, CI - Last Documented Arterial Blood Pressure 134/82 - Labs CBC & Chem 7: 11/15/23 05:52 11/15/23 05:52 Labs: Abnormal Lab Results - Last 24 Hours (Table) 11/14/23 11/15/23 Range/Units 12:06 05:52 RBC 3.41 L (4.30-5.90) m/uL Hgb 10.4 L (13.0-17.5) gm/dL Hct 32.4 L (39.0-53.0) % POC Glucose (mg/dL) 111 H (70-110) mg/dL Microbiology - Last 24 Hours (Table) 11/11/23 13:37 Gram Stain - Final Sputum Sputum Culture - Final Staphylococcus aureus Klebsiella pneumoniae Assessment and Plan Time with Patient: Less than 30
[2023-11-15 16:45] LABS: Magnesium 2.1 mg/dL (1.6-2.3)
[2023-11-15 18:21] LABS: Glucose,Whole Blood 120 mg/dL (70-110)
[2023-11-16 01:00] LABS: Glucose,Whole Blood 121 mg/dL (70-110)
[2023-11-16 05:47] LABS: Glucose,Whole Blood 92 mg/dL (70-110)
[2023-11-16 05:56] LABS: Basophils # (A) 0.1 k/uL (0-0.2); Basophils % (A) 1 %; Eosinophils # (A) 0.5 k/uL (0-0.7); Eosinophils % (A) 6 %; HCT 31.7 % (39.0-53.0); Hypochromasia Slight; Lymphocytes # (A) 1.4 k/uL (1.0-4.8); Lymphocytes % (A) 15 %; MCHC 31.6 g/dL (31.0-37.0); Mean Platelet Volume 8.6; Monocytes # (A) 0.6 k/uL (0-1.0); Monocytes % (A) 7 %; Neutrophils # (A) 6.1 k/uL (1.3-7.7); Neutrophils % (A) 70 %; Platelet Count 395 k/uL (150-450); RBC 3.34 m/uL (4.30-5.90); RDW 15.1 % (11.5-15.5); WBC 8.7 k/uL (3.8-10.6)
[2023-11-16 06:18] LABS: African American GFR (CKD) >90 (>60 ml/min/1.73 sqM); Anion Gap 5 mmol/L; Blood Urea Nitrogen 17 mg/dL (9-20); Calcium 9.6 mg/dL (8.4-10.2); Carbon Dioxide 28 mmol/L (22-30); Chloride 106 mmol/L (98-107); Glucose 95 mg/dL (74-99); Non-African American GFR(CKD) >90 (>60 ml/min/1.73 sqM); Sodium 139 mmol/L (137-145)
[2023-11-16] MEDS: FUROSEMIDE 10 MG/ML 2 ML VIAL IV SCH (09:39)
--- NOTE | 2023-11-16 10:30 | P.PN ---
Subjective Progress Note Date: 11/16/23 CHIEF COMPLAINT: Abdominal pain HISTORY OF PRESENT ILLNESS: Patient status post PEG tube placement on 11/06/23. Patient is status post tracheostomy placement on 11/02/23. Patient had his tracheostomy tube changed to a Shiley tube. Patient is tolerating tube feeds. WBC 8.7 PHYSICAL EXAM: VITAL SIGNS: Reviewed. GENERAL: no acute distress. Neck: trach site clean, dry and intact. ABDOMEN: Soft. Nondistended. Nontender. PEG tube site clean dry and intact ASSESSMENT: 1. Acute hypoxic respiratory failure due to alcohol withdraw syndrome 2. Severe protein calorie malnutrition 3. Acute alcoholic pancreatitis PLAN: -Continue tube feeds -Continue supportive care Physician Supervisor Roving Department note has been reviewed by physician. Signing provider agrees with the documented findings, assessment, and plan of care. Objective - Vital Signs Vital signs: Vital Signs Temp 98.8 F 11/16/23 08:00 Pulse 92 11/16/23 09:00 Resp 12 11/16/23 09:00 BP 113/79 11/16/23 09:00 Pulse Ox 97 11/16/23 09:00 FiO2 28 11/16/23 09:00 Intake & Output 11/15/23 11/16/23 11/16/23 18:59 06:59 18:59 Intake Total 785.291 754 114 Output Total 880 300 100 Balance -94.709 454 14 Weight 68.9 kg Intake: IV 200 190 20 Cefepime 2 gm In Sodium 200 100 Chloride 0.9% 100 ml @ 25 mls/hr IVPB Q8HR [facility] Rx# :[id number] Sodium Chloride 0.9% 1, 90 20 000 ml @ 10 mls/hr IV . Q24H [facility] Rx#:[id number] Intake, IV Titration 68.291 Amount Dexmedetomidine/0.9% NaCl 68.291 (Pmx) 400 mcg In Empty Bag 1 bag @ 0.2 MCG/KG/HR 3.375 mls/hr IV .Q24H [facility] Rx#:[id number] Tube Feeding 517 564 94 Output: Urine 880 300 100 Other: Voiding Method Urinal Urinal # Voids 1 1 1 # Bowel Movements 1 1 ABP, PAP, CO, CI - Last Documented Arterial Blood Pressure 134/82 - Labs CBC & Chem 7: 11/16/23 05:26 11/16/23 05:26 Labs: Abnormal Lab Results - Last 24 Hours (Table) 11/15/23 11/16/23 11/16/23 Range/Units 18:20 01:00 05:26 RBC 3.34 L (4.30-5.90) m/uL Hgb 10.0 L (13.0-17.5) gm/dL Hct 31.7 L (39.0-53.0) % POC Glucose (mg/dL) 120 H 121 H (70-110) mg/dL Microbiology - Last 24 Hours (Table) 11/10/23 10:17 Blood Culture - Final Blood
[2023-11-16 11:53] LABS: Glucose,Whole Blood 100 mg/dL (70-110)
--- NOTE | 2023-11-16 13:08 | P.PN ---
Subjective Progress Note Date: 11/16/23 Principal diagnosis: Acute alcohol withdrawal 11/11/2023, the patient is being seen for a follow-up. The patient remains on a pressure support mode of mechanical ventilation with a pressure support of 7 and a PEEP of 5. Overnight, he was placed on Precedex and this morning and this is running at 0.3 mcg/kg/h. Otherwise, the patient is calm and comfortable and is not having any major respiratory distress. No significant orotracheal secretions. Enteral feeding is running at the rate of 10 cc an hour and the patient is currently on vital AF. No complaints. Amylase lipase levels are not elevated at this point. Distention. No fever this morning. Note that based on his yesterday's fever episode, the patient was placed on a broad-spectrum antibiotics and was started on vancomycin and cefepime. Repeat sputum Gram stain and culture still pending for now. Nevertheless, since then, the patient has been afebrile.. Hemodynamically stable without any significant hypotension. Blood work shows a WBC count of 7.8 with a hemoglobin 8.8 and a platelet count of 345 and electrolytes are all stable with a BUN of 14 and a creatinine of 0.6 and a sodium level of 137. Patient is on Seroquel 150 mg p.o. twice daily. The patient is also on BuSpar 30 mg p.o. twice daily. Ativan on as-needed basis. Precedex is being weaned off. 11/12/2023, patient is awake and alert. On and off he still requiring Precedex as the patient's agitation waxes and wanes. He is currently on Precedex at 0.7 mcg/kg/h and the patient is very much comfortable. Is currently on trach collar, FiO2 of 28%. Has been off the mechanical ventilator for the past 24 hours. Breathing is comfortable. No respiratory distress. No significant orotracheal secretions. Awaiting sputum Gram stain and culture and patient is currently covered with cefepime and vancomycin. He has afebrile for now. C ontinues to receive enteral feeding for nutritional support and the patient is currently on Nepro at rate of 20 cc an hour. He is also on Seroquel for agitation. He is on BuSpar. Librium will be also added as we are trying to wean this patient off Precedex. He is on Lovenox for DVT prophylaxis. Sitting Dilaudid on an as-needed basis. Adequate urine output. White cell count at 7.9 with a hemoglobin 11.2, BUN 16 with a creatinine of 0.6 and a sodium levels at 137. No abdominal distention. Tolerating diet which is in the form of Nepro, via PEG tube. No abdominal distention. Patient was evaluated today on 11/13/2023, patient remains in the ICU, he is on trach collar at 28% FiO2, patient seems to be calm, however he has his. Swelling in he becomes extremely agitated and restless, still requiring Precedex at 0.6 mcg/kg/h, he is also on Seroquel at 150 twice daily, Librium 50 mg 3 karla es daily and on Ativan as needed. Still not quite ready to be moved out of the ICU, patient is receiving Nepro at 47 cc/h via PEG tube, patient has a trach collar and is receiving 28% FiO2. Chest x-ray continues to show bibasilar infiltrates left more so than right, previously 6.4 hemoglobin 10.3 basic metabolic profile is normal renal profile is normal. Patient remains on cefepime, and his vancomycin was discontinued by Dr. Goddard and remains on GI DVT prophylaxis. Patient was read today on 11/14/2023, patient remains in the ICU, remains on trach collar, he is on Precedex otherwise he gets extremely agitated and restless, his Precedex is down to 0.3 mcg/kg/h. Patient is still receiving Nepro via PEG tube, patient seems to be calm today but according to the nurses he had episodes where he gets extremely agitated. Today I recommended changing his tracheostomy to a Shiley size 6, and this will be fenestrated, will discontinue his Bivona and in fact I went ahead and at bedside proceeded to exchanging the tracheostomy is, and now he has a size 6 Shiley fenestrated, we can now potentially cap the trach intermittently, and eventually consider decannulation. However considering the patient has and continues to have significant amount of purulent secretions, I will keep that in place for now. His chest x-ray is showing improvement in his bilateral interstitial infiltrate/edema. WBC count today is 8.7 hemoglobin is 11.2. Basic metabolic profile is normal and renal profile is normal Patient was seen and examined today on 11/15/2023, remains in the ICU, still requiring a low-dose of Precedex otherwise he gets extremely agitated, patient had his tracheostomy tube changed to a Shiley tube, feels much better now that you could have a speaking valve on discharge with tube/fenestrated tube and the patient could talk. Patient again has a speaking valve on the tube, and is wo rking fine. Remains on Precedex at 0.1 mcg/kg/h remains on Nepro via PEG tube, remains on antibiotics in the form of cefepime, patient had MSSA and Klebsiella in the sputum.WBC count is 9.7 hemoglobin 10.4 basic metabolic profile is normal Patient was reevaluated today on 11/16/2023, he is now off Precedex, patient was seen by psychiatry, and advised starting the patient on Prolixin, 5 mg p.o. pam ry 6 hours as needed. Advised cutting down on benzodiazepines. Patient actually is doing well today, comfortable, not in distress, continues to have significant secretions from the tracheostomy tube. Patient remains on antibiotic, and today I recommended that he goes back on Lasix.No chest x-ray was done today, however his chest x-ray from 11/11, has shown mild improvement in the acute pulmonary disease/CHF. In addition patient had what seemed to be a picture of aspiration pneumonia, steadily improving.WBC count today is 8.7 hemoglobin is 10 basic metabolic profile is normal and renal profile is normal Objective - Vital Signs Vital signs: Vital Signs Temp 98.7 F 11/16/23 12:00 Pulse 81 11/16/23 12:00 Resp 16 11/16/23 12:00 BP 122/93 11/16/23 12:00 Pulse Ox 99 11/16/23 12:00 FiO2 28 11/16/23 12:00 Intake & Output 11/15/23 11/16/23 11/16/23 18:59 06:59 18:59 Intake Total 785.291 754 402 Output Total 880 300 650 Balance -94.709 454 -248 Weight 68.9 kg Intake: IV 200 190 120 Cefepime 2 gm In Sodium 200 100 100 Chloride 0.9% 100 ml @ 25 mls/hr IVPB Q8HR [facility] Rx# :[id number] Sodium Chloride 0.9% 1, 90 20 000 ml @ 10 mls/hr IV . Q24H [facility] Rx#:[id number] Intake, IV Titration 68.291 Amount Dexmedetomidine/0.9% NaCl 68.291 (Pmx) 400 mcg In Empty Bag 1 bag @ 0.2 MCG/KG/HR 3.375 mls/hr IV .Q24H [facility] Rx#:[id number] Tube Feeding 517 564 282 Output: Urine 880 300 650 Other: Voiding Method Urinal Urinal # Voids 1 1 1 # Bowel Movements 1 1 ABP, PAP, CO, CI - Last Documented Arterial Blood Pressure 134/82 - Exam GENERAL EXAM: Revealed 48-year-old white male, on 28% trach collar HEAD: Normocephalic and atraumatic EYES: Normal reaction of pupils, equal size. NOSE: Clear with pink turbinates. THROAT: No erythema or exudates. NECK: No masses, no JVD. CHEST: No chest wall deformity. Symmetrical chest wall expansion LUNGS: Fine crackles and rhonchi at the bases Cardiac: Normal S1-S2, no S3 gallop. ABDOMEN: Soft nontender no megaly no rebound no guarding SKIN: No rashes CENTRAL NERVOUS SYSTEM: Patient is awake, seems to be oriented x 3, calm. Off Precedex EXTREMITIES: No clubbing edema or cyanosis - Labs CBC & Chem 7: 11/16/23 05:26 11/16/23 05:26 Labs: Abnormal Lab Results - Last 24 Hours (Table) 11/15/23 11/16/23 11/16/23 Range/Units 18:20 01:00 05:26 RBC 3.34 L (4.30-5.90) m/uL Hgb 10.0 L (13.0-17.5) gm/dL Hct 31.7 L (39.0-53.0) % POC Glucose (mg/dL) 120 H 121 H (70-110) mg/dL Microbiology - Last 24 Hours (Table) 11/10/23 10:17 Blood Culture - Final Blood Assessment and Plan Assessment: Impression: Acute hypoxic respiratory failure secondary to acute alcohol withdrawal and unable to protect his airways, required intubation mechanical ventilation on 10/26/2023, required tracheostomy on 11/01 and PEG tube placement on 11/05, tracheostomy changed to a Shiley tracheostomy on 11/13/fenestrated Shiley size 6 Acute alcohol withdrawal with acute alcohol intoxication, patient required a prolonged course of intubation and sedation because of his alcohol withdrawal. Acute pancreatitis, EtOH related. Resolved Abdominal pain, secondary to acute pancreatitis, resolved Acute kidney injury, resolved History of alcoholism Mild transaminitis History of coronary artery disease Current everyday smoker Hypertensive urgency, resolved Acute fever, currently under investigation, covered empirically with cefepime, however his vancomycin has been discontinued by Dr. Goddard. Recommendation: Surgery patient is now off Precedex and he is not requiring any pressors, will arrange for transfer to a monitored bed and selective. Continue present supportive care measures Continue bronchodilators Continue antibiotics Continue suctioning of endotracheal tube Continue IV fluids Continue GI prophylaxis Continue Lovenox, GI prophylaxis Continue physical therapy Intermittently diuresis, Lasix was ordered today Psychiatric input was noted and appreciated. Will continue to follow Time with Patient: Less than 30
--- NOTE | 2023-11-16 17:48 | P.PN ---
Subjective Progress Note Date: 11/14/23 Principal diagnosis: Reason for follow-up is fever/leukocytosis/pneumonia Patient is a 48-year-old male with a past medical history significant for hypertension coronary disease anxiety current everyday smoker presenting to the hospital more than 2 weeks ago for evaluation of abdominal pain, has been diagnosed and treated for acute pancreatitis secondary to chronic alcohol patient failed to be extubated and got trach and PEG has been running a low- grade fever prompting this consultation. On today's evaluation that is 11/14/2023, Patient is afebrile patient is cur rently on trach collar 28% FiO2 and seem to be breathing comfortably no chest pain no worsening cough abdominal pain severe decrease in He has been reported. The patient white count is 8.7 creatinine 6.7 Objective - Vital Signs Vital signs: Vital Signs Temp 98.4 F 11/14/23 12:00 Pulse 88 11/14/23 14:00 Resp 15 11/14/23 14:00 BP 102/83 11/14/23 14:00 Pulse Ox 97 11/14/23 14:00 FiO2 28 11/14/23 12:00 Intake & Output 11/13/23 11/14/23 11/14/23 18:59 06:59 18:59 Intake Total 663.952 70.188 647.721 Output Total 1700 950 225 Balance -1036.048 -879.812 422.721 Weight 62.7 kg 66.4 kg Intake: IV 240 200 Cefepime 2 gm In Sodium 200 100 Chloride 0.9% 100 ml @ 25 mls/hr IVPB Q8HR [facility] Rx# :[id number] Invasive Line 2 30 Invasive Line 4 10 Magnesium Sulfate-D5w Pmx 100 1 gm In Dextrose/Water 1 100ml.bag @ 100 mls/hr IVPB Q1H [facility] Rx#: [id number] Intake, IV Titration 93.952 70.188 88.721 Amount Dexmedetomidine/0.9% NaCl 93.952 70.188 88.721 (Pmx) 400 mcg In Empty Bag 1 bag @ 0.2 MCG/KG/HR 3.375 mls/hr IV .Q24H [facility] Rx#:[id number] Tube Feeding 270 329 Other 60 30 Output: Urine 1700 950 225 Other: Voiding Method Urinal Urinal # Voids 1 # Bowel Movements 0 ABP, PAP, CO, CI - Last Documented Arterial Blood Pressure 134/82 - Exam GENERAL DESCRIPTION: Middle-age male lying in bed in no distress RESPIRATORY SYSTEM: Unlabored breathing , decreased breath sounds at bases HEART: S1 S2 regular rate and rhythm , ABDOMEN: Soft , mild distention and tenderness EXTREMITIES: No edema feet - Labs CBC & Chem 7: 11/16/23 05:26 11/16/23 05:26 Labs: Abnormal Lab Results - Last 24 Hours (Table) 11/13/23 11/14/23 11/14/23 Range/Units 23:40 05:54 05:54 RBC 3.61 L (4.30-5.90) m/uL Hgb 11.2 L (13.0-17.5) gm/dL Hct 34.1 L (39.0-53.0) % Glucose 108 H (74-99) mg/dL POC Glucose (mg/dL) 123 H (70-110) mg/dL 11/14/23 11/14/23 Range/Units 05:59 12:06 RBC (4.30-5.90) m/uL Hgb (13.0-17.5) gm/dL Hct (39.0-53.0) % Glucose (74-99) mg/dL POC Glucose (mg/dL) 120 H 111 H (70-110) mg/dL Microbiology - Last 24 Hours (Table) 11/11/23 13:37 Gram Stain - Final Sputum Sputum Culture - Final Staphylococcus aureus Klebsiella pneumoniae 11/10/23 10:17 Blood Culture - Preliminary Blood Assessment and Plan (1) Fever Current Visit: Yes Status: Acute Code(s): R50.9 - FEVER, UNSPECIFIED SNOMED Code(s): 957190154 (2) Leukocytosis Current Visit: Yes Status: Acute Code(s): D72.829 - ELEVATED WHITE BLOOD CELL COUNT, UNSPECIFIED SNOMED Code(s): 114114696 (3) Pneumonia Current Visit: Yes Status: Acute Code(s): J18.9 - PNEUMONIA, UNSPECIFIED ORGANISM SNOMED Code(s): 946312245 (4) Alcoholic pancreatitis Current Visit: Yes Status: Acute Code(s): K85.20 - ALCOHOL INDUCED ACUTE PANCREATITIS WITHOUT NECROSIS OR INFCT SNOMED Code(s): 984806021 Plan: 1patient with low-grade fever in this patient with initial admission to the hospital for acute pancreatitis secondary to his alcoholism patient did get intubated because of respiratory distress and did have a positive sputum culture for MSSA on 10/26/2023 patient failed to be extubated and is s/p trach on 11/02/2023 and PEG tube on 11/06/2023 with the etiology of low-grade fever elevated white count is multifactorial question of pneumonia versus abdominal etiology and the patient was noted to have significant abdominal distention and apparently the patient did not have bowel movement for the last 5 to 6 days per the nursing staff 2-patient CT of abdominal pelvis with contrast, did not show any worsening pancreatitis pseudocyst or abscess mild cystitis and effusion 3-patient did have resolution of his fever and the patient white count has normalized, sputum is growing MSSA and Klebsiella 4-patient to continue with the cefepime and monitor clinical course closely Dictation was produced using [employer] dictation software. please excuse any grammatical, word or spelling errors. Time with Patient: Less than 30
--- NOTE | 2023-11-16 17:49 | P.PN ---
Subjective Progress Note Date: 11/15/23 Principal diagnosis: Reason for follow-up is fever/leukocytosis/pneumonia Patient is a 48-year-old male with a past medical history significant for hypertension coronary disease anxiety current everyday smoker presenting to the hospital more than 2 weeks ago for evaluation of abdominal pain, has been diagnosed and treated for acute pancreatitis secondary to chronic alcohol patient failed to be extubated and got trach and PEG has been running a low- grade fever prompting this consultation. On today's evaluation that is 11/15/2023, patient has been afebrile, patient is breathing comfortably and is currently on trach collar with 28% FiO2 patient seen to be slightly sleepy lethargic cannot provide any history no vomiting or diarrhea reported by the nursing staff Patient did have white count 9.7, creatinine 0.75 Objective - Vital Signs Vital signs: Vital Signs Temp 98.8 F 11/15/23 12:00 Pulse 95 11/15/23 15:00 Resp 15 11/15/23 15:00 BP 129/100 11/15/23 15:00 Pulse Ox 97 11/15/23 15:00 FiO2 28 11/14/23 12:00 Intake & Output 11/14/23 11/15/23 11/15/23 18:59 06:59 18:59 Intake Total 917.809 839 569.291 Output Total 375 370 680 Balance 542.809 469 -110.709 Weight 66.7 kg Intake: IV 275 125 125 Cefepime 2 gm In Sodium 175 125 125 Chloride 0.9% 100 ml @ 25 mls/hr IVPB Q8HR [facility] Rx# :[id number] Magnesium Sulfate-D5w Pmx 100 1 gm In Dextrose/Water 1 100ml.bag @ 100 mls/hr IVPB Q1H [facility] Rx#: [id number] Intake, IV Titration 95.809 68.291 Amount Dexmedetomidine/0.9% NaCl 95.809 68.291 (Pmx) 400 mcg In Empty Bag 1 bag @ 0.2 MCG/KG/HR 3.375 mls/hr IV .Q24H [facility] Rx#:[id number] Tube Feeding 517 564 376 Other 30 150 Output: Urine 375 370 680 Other: Voiding Method Urinal Urinal Urinal # Voids 1 # Bowel Movements 1 ABP, PAP, CO, CI - Last Documented Arterial Blood Pressure 134/82 - Exam GENERAL DESCRIPTION: Middle-age male lying in bed in no distress RESPIRATORY SYSTEM: Unlabored breathing , decreased breath sounds at bases HEART: S1 S2 regular rate and rhythm , ABDOMEN: Soft , mild distention and tenderness EXTREMITIES: No edema feet - Labs CBC & Chem 7: 11/16/23 05:26 11/16/23 05:26 Labs: Abnormal Lab Results - Last 24 Hours (Table) 11/15/23 Range/Units 05:52 RBC 3.41 L (4.30-5.90) m/uL Hgb 10.4 L (13.0-17.5) gm/dL Hct 32.4 L (39.0-53.0) % Microbiology - Last 24 Hours (Table) 11/11/23 13:37 Gram Stain - Final Sputum Sputum Culture - Final Staphylococcus aureus Klebsiella pneumoniae Assessment and Plan (1) Fever Current Visit: Yes Status: Acute Code(s): R50.9 - FEVER, UNSPECIFIED SNOMED Code(s): 526750882 (2) Leukocytosis Current Visit: Yes Status: Acute Code(s): D72.829 - ELEVATED WHITE BLOOD CELL COUNT, UNSPECIFIED SNOMED Code(s): 091913758 (3) Pneumonia Current Visit: Yes Status: Acute Code(s): J18.9 - PNEUMONIA, UNSPECIFIED ORGANISM SNOMED Code(s): 226924452 (4) Alcoholic pancreatitis Current Visit: Yes Status: Acute Code(s): K85.20 - ALCOHOL INDUCED ACUTE PANCREATITIS WITHOUT NECROSIS OR INFCT SNOMED Code(s): 637309947 Plan: 1patient with low-grade fever in this patient with initial admission to the hospital for acute pancreatitis secondary to his alcoholism patient did get intubated because of respiratory distress and did have a positive sputum culture for MSSA on 10/26/2023 patient failed to be extubated and is s/p trach on 11/02/2023 and PEG tube on 11/06/2023 with the etiology of low-grade fever elevated white count is multifactorial question of pneumonia versus abdominal etiology and the patient was noted to have significant abdominal distention and apparently the patient did not have bowel movement for the last 5 to 6 days per the nursing staff 2-patient CT of abdominal pelvis with contrast, did not show any worsening pancreatitis pseudocyst or abscess mild cystitis and effusion 3-patient sputum is growing MSSA and Klebsiella 4-patient seem to have responded to cefepime to continue and monitor clinical course closely Dictation was produced using [employer] dictation software. please excuse any grammatical, word or spelling errors. Time with Patient: Less than 30
--- NOTE | 2023-11-16 17:50 | P.PN ---
Subjective Progress Note Date: 11/16/23 Principal diagnosis: Reason for follow-up is fever/leukocytosis/pneumonia Patient is a 48-year-old male with a past medical history significant for hypertension coronary disease anxiety current everyday smoker presenting to the hospital more than 2 weeks ago for evaluation of abdominal pain, has been diagnosed and treated for acute pancreatitis secondary to chronic alcohol patient failed to be extubated and got trach and PEG has been running a low- grade fever prompting this consultation. On today's evaluation that is 11/16/2023,the patient continues to be afebrile patient is breathing comfortably currently on a trach collar FiO2 28% patient is sleepy did not answer any question not requiring any pressor support no vomiting or diarrhea reported by nursing staff. The patient white count is 8.7, creatinine 0.77 Objective - Vital Signs Vital signs: Vital Signs Temp 98.7 F 11/16/23 12:00 Pulse 77 11/16/23 14:00 Resp 14 11/16/23 14:00 BP 126/87 11/16/23 14:00 Pulse Ox 97 11/16/23 14:00 FiO2 28 11/16/23 14:00 Intake & Output 11/15/23 11/16/23 11/16/23 18:59 06:59 18:59 Intake Total 785.291 754 449 Output Total 880 300 650 Balance -94.709 454 -201 Weight 68.9 kg Intake: IV 200 190 120 Cefepime 2 gm In Sodium 200 100 100 Chloride 0.9% 100 ml @ 25 mls/hr IVPB Q8HR [facility] Rx# :[id number] Sodium Chloride 0.9% 1, 90 20 000 ml @ 10 mls/hr IV . Q24H [facility] Rx#:[id number] Intake, IV Titration 68.291 Amount Dexmedetomidine/0.9% NaCl 68.291 (Pmx) 400 mcg In Empty Bag 1 bag @ 0.2 MCG/KG/HR 3.375 mls/hr IV .Q24H [facility] Rx#:[id number] Tube Feeding 517 564 329 Output: Urine 880 300 650 Other: Voiding Method Urinal Urinal Urinal # Voids 1 1 1 # Bowel Movements 1 1 ABP, PAP, CO, CI - Last Documented Arterial Blood Pressure 134/82 - Exam GENERAL DESCRIPTION: Middle-age male lying in bed in no distress RESPIRATORY SYSTEM: Unlabored breathing , decreased breath sounds at bases HEART: S1 S2 regular rate and rhythm , ABDOMEN: Soft , mild distention and tenderness EXTREMITIES: No edema feet - Labs CBC & Chem 7: 11/16/23 05:26 11/16/23 05:26 Labs: Abnormal Lab Results - Last 24 Hours (Table) 11/15/23 11/16/23 11/16/23 Range/Units 18:20 01:00 05:26 RBC 3.34 L (4.30-5.90) m/uL Hgb 10.0 L (13.0-17.5) gm/dL Hct 31.7 L (39.0-53.0) % POC Glucose (mg/dL) 120 H 121 H (70-110) mg/dL Microbiology - Last 24 Hours (Table) 11/10/23 10:17 Blood Culture - Final Blood Assessment and Plan (1) Fever Current Visit: Yes Status: Acute Code(s): R50.9 - FEVER, UNSPECIFIED SNOMED Code(s): 758632789 (2) Leukocytosis Current Visit: Yes Status: Acute Code(s): D72.829 - ELEVATED WHITE BLOOD CELL COUNT, UNSPECIFIED SNOMED Code(s): 361772440 (3) Pneumonia Current Visit: Yes Status: Acute Code(s): J18.9 - PNEUMONIA, UNSPECIFIED ORGANISM SNOMED Code(s): 536885468 (4) Alcoholic pancreatitis Current Visit: Yes Status: Acute Code(s): K85.20 - ALCOHOL INDUCED ACUTE PANCREATITIS WITHOUT NECROSIS OR INFCT SNOMED Code(s): 161172274 Plan: 1patient with low-grade fever in this patient with initial admission to the hospital for acute pancreatitis secondary to his alcoholism patient did get intubated because of respiratory distress and did have a positive sputum culture for MSSA on 10/26/2023 patient failed to be extubated and is s/p trach on 11/02/2023 and PEG tube on 11/06/2023 with the etiology of low-grade fever elevated white count is multifactorial question of pneumonia versus abdominal etiology and the patient was noted to have significant abdominal distention and apparently the patient did not have bowel movement for the last 5 to 6 days per the nursing staff 2-patient CT of abdominal pelvis with contrast, did not show any worsening pancreatitis pseudocyst or abscess mild cystitis and effusion 3-patient sputum is growing MSSA and Klebsiella 4-patient seem to have responded to cefepime as the patient and the fever resolved white count normalized we will continue the patient cefepime transition to oral antibiotics on discharge Dictation was produced using [employer] dictation software. please excuse any grammatical, word or spelling errors. Time with Patient: Less than 30
[2023-11-16 18:03] LABS: Glucose,Whole Blood 113 mg/dL (70-110)
--- NOTE | 2023-11-16 21:48 | P.PN ---
Subjective Progress Note Date: 11/16/23 48-year-old white male with past medical history significant for hypertension, coronary artery disease, current everyday smoker, and alcohol abuse. He was transferred from [facility] 10/22/2023 for acute pancreatitis. He was noted to be intoxicated on arrival to outside facility, with an alcohol level of 34 mg/dL. He required ICU admission for Precedex infusion. He was also noted to have severely elevated lipase and amylase levels. An abdominal and pelvis CT was performed, which identified peripancreatic inflammatory stranding and fluid consistent with acute pancreatitis. No pseudoc yst, abscess, or pancreatic necrosis. No gallstones or ductal dilation. There was decreased attenuation of the hepatic parenchyma, suggestive of fatty infiltration. Patient was dehdydrated and noted to have sustained an WILFRIDO. It appears he was fluid resuscitated with 2 L of crystalloid fluid. He was then transferred to [facility]. CBC from yesterday: WBC count 7.6, hemoglobin 13.9, hematocrit 42, platelets 110. Most recent CMP from yesterday: Sodium 138, potassium 4.4, chloride 108, serum bicarb 19, BUN 18, creatinine 1.13, glucose 94. AST 97, ALT 74, ALP 156, total bilirubin 1. Lipase 11,329 and amylase 1468. Patient is currently lethargic and not making much sense when talking. Unsure of when last drink was. Precedex is infusing at 0.4 mcg/kg/h. He does have bilateral upper extremity soft restraints on, which likely can be discontinued. Blood pressure is noted to be hypertensive, has received a clonidine 0.2 mg patch, which is fallen off and will be replaced. EKG shows normal sinus rhythm without any obvious acute ischemic changes. Patient's pain appears well-managed with current regimen of as needed Dilaudid. He does have some facial grimacing with palpation of the bilateral upper abdomen. Normal saline is infusing at 150 MLS per hour. Currently on room air, in no acute respiratory distress. Afebrile. He has been moved to room 262 in the intensive care unit. -- Plan of care was discussed with patient's mother; reports she was told by family noticed that patient is now qualifying for hospice/palliative care -- Patient condition discussed in great detail; nutrition specialist recommendations discussed with patient also; no plan to consult hospice or palliative care at this time 11/04/2023 Patient is seen and evaluated in room at bedside; discussed with nursing staff; no family members present in the room Patient remains on mechanical ventilator. He is on volume assist-control Blood gases show pO2 of 72, pCO2 47, pH is 7.41. Lab review shows white count 12.5, hemoglobin 9.9, hematocrit 30.3, and platelet count 357,000. Sodium 135, potassium 4.3, chlorides 102, CO2 28, BUN 19, creatinine 0.64. Glucose is 86. Phosphorus 4.7, calcium 9, magnesium 1.9. Sputum from October 25 shows evidence of Staphylococcus aureus. Chest x-ray shows bilateral small effusions, with adjacent atelectasis. -- Plan for PEG tube placement on 11/06/2023; and has been placed back on tube feeding -Intensive care service planning to wean off the fentanyl, patient has been placed on Dilaudid 1 mg every 4 hours -- Patient is status post tracheostomy; PEG tube placement rescheduled for Monday due to nonavailability of OR 11/05/2023 Patient is seen and evaluated in room at bedside; patient remains on mechanical ventilator. Settings include volume assist-control, rate 20, tidal volume 400, FiO2 50%, PEEP of 5. -- Blood gases show pO2 112, pCO2 45, pH is 7.46. The patient is getting lactated Ringer's at 20 cc an hour, propofol at 10 mcg/kg/min, and tube feedings with Nepro, at 10 cc an hour, with a goal of 19. - White count 14, hemoglobin 10.5, hematocrit 31.8, and platelet count 365,000. Sodium 137, potassium 3.7, chlorides 103, CO2 31, BUN 16, creatinine 0.69. Calcium is 9.2. Magnesium 1.9. Sputum from the was positive for Staphylococcus aureus. The patient has completed his antibiotics. Chest x-ray shows bilateral patchy infiltrates, which could be on the basis of fluid, and or pneumonia. 11/06/2023 Patient is seen and evaluated in follow-up today remains on mechanical ventilation with an FiO2 of 50% currently being dropped down to 40% with a PEEP of 5. Patient is status post tracheostomy and currently awaiting to receive a PEG tube today. Tube feedings are on hold and will be resumed once cleared per surgery after 24 hours. Patient remains on propofol with no plans of weaning trial today. Patient did have an attempted weaning trial yesterday and per nursing staff did not tolerate very well. Pulmonary nutrition specialist following with plans on resuming weaning trials tomorrow. Patient is afebrile and has completed a course of antibiotics. Follow-up chest x-ray ordered and pending. 11/07/2023 Patient is seen and evaluated in follow-up status post continued on tracheostomy with an FiO2 of 40% PEEP is 5 as well as PEG tube yesterday. Tube feedings to initiate per surgery today and will monitor for tolerance. Chest x-ray today shows diffuse bilateral infiltrates and small effusion correlate for CHF otherwise findings stable from previous. Blood pressure on the higher side and heart rates into the 1 teens, maintained on verapamil and metoprolol. Patient having low-grade temps and white count is mildly elevated we will repeat cultures including obtaining a sputum culture and urinalysis and initiate Zosyn. Procalcitonin ordered as well. Continue aspiration precautions. Patient is awake and following some commands. Patient is mumbling and attempting to talk. Patient denies pain at this time. 11/08/2023 Patient is seen and evaluated in follow-up continues to be in the ICU currently on pressure support on the vent and off propofol attempting to wean completely off. Patient was having low-grade temps and initial sputum culture showing Staph aureus, repeat sputum and blood cultures ordered as patient white count becoming more elevated and remaining and also tachycardia with concerns of possible pneumonia. Chest x-ray shows diffuse bilateral infiltrate and small effusion correlate for CHF otherwise consider pneumonia. Patient having significant secretions requiring frequent suctioning with concerns of pneumonia. Patient is status post tracheostomy and PEG tube and has been started on tube feedings and tolerating thus far. Working on goal. Will consult infectious disease and appreciate input and recommendations as patient was on antibiotics previously with concerns of aspiration pneumonia although having recurrent fevers and newly elevated white count. Potassium on the lower side will replace per protocol. Procalcitonin is 0.29. Will also add COVID/influenza/RSV testing as patient has had prolonged hospitalization. Patient may be a good candidate for select specialties and a referral will be placed. Social work is following closely. 11/09/2023 Patient is seen in follow-up today continues to be in the ICU with multiple medical consultations following. Infectious disease was consulted and appreciate input and recommendations as patient continues to have some tachycardia, low-grade temps, elevated white count. White count today is 12.4 and hemoglobin is stable at 9.2. Patient is continued on Zosyn for now as CT abdomen pelvis is ordered. Patient is reporting severe abdominal pain in the epigastric pancreatic area. Patient was initially admitted and on antibiotics as sputum culture showed Staph aureus. Patient had been monitored off antibiotics although developing fevers and white count. Preliminary repeat sputum culture showing presumptive staph with gram-negative bacilli and will await finalized culture. Patient also reportedly had not had a bowel movement in 5 days and had a large bowel movement yesterday and will continue with bowel regimen as needed. Awaiting CT report to discuss further with infectious diseas e and other consultations regarding possible select specialties consult. Propofol is off and will continue with current regimen. 11/10/2023 Patient is seen and evaluated in follow-up today with multiple medical consultations following including infectious disease. Patient continues to have fevers underwent CT abdomen with no significant findings noted. Per nursing staff patient continues to be somewhat agitated requiring Precedex as well as continued fevers with preliminary sputum culture repeat showing Staph aureus along with gram-negative bacilli. Patient is being transition to cefepime along with vancomycin and awaiting finalized cultures. Patient is tolerating tube feedings although reduced rate and will continue at a reduced rate for now with close monitoring. Patient continues on pressure support of 7 and PEEP is 5 and FiO2 is 40%.. Chest x-ray showing bilateral lower lobe infiltrates and continues with a mildly elevated white count. Continue weaning trials and adjustments per pulmonary nutrition specialist. Repeated amylase lipase within normal limits. Continuing attempt to wean Precedex. 11/11/2023 Patient is evaluated in the Intensive are unit in follow up. Continues to remain more awake and alert. Plans to continue weaning the patient off the vent as tolerated with plans to attempt the trach collar and voice box. Patient getting frustrated as he is wanting to talk and communicate and difficult to understand. Less agitated today. Continues on IV vancomycin and IV cefepime with sputum cultures positive for staphylococcus aureus and klebsiella pneumoniae. Blood cul tures are negative so far. Blood work today reveals a white blood cell count of 7.8, hemoglobin 8.8, BUN of 14, creatinine of 0.63. Blood sugar is 100. Procalcitonin level remains elevated at 0.24 although improved slightly. 11/12/2023 Patient remains in the ICU. He has been weaned from the mechanical ventilator and has been placed on the trach collar. He continues to attempt to speak and communicate although getting frustrated. He is less agitated however remains on the precedex gtt. Seroquel and librium doses have been adjusted in an attempt to wean off the precedex. Chest xray today reveals mild improvement in the acute cardiopulmonary disease most consistent with CHF. Repeat sputum culture has been taken and pending. Continues on course of IV cefepime. Vancomycin has been discontinued. Blood work remains WNL. 11/13/2023 Patient sitting up in the chair today mood has significantly improved. He is able to write to communicate and wondering about discharge. He remains on the trach collar. Continues with enteral nutrition. Remains on the precedex gtt which is slowly being weaned. Continues on seroquel and librium. Sputum culture repeat remains positive with presumptive staphylococcus aureus, gram negaitve bacilli. Remains on IV cefepime. ID following. White blood cell count 6.4. Hgb stable 10.3. Sodium 140, BUN 16, creatinine 0.67. Fever has resolved. 11/14/2023 Patient remains in the ICU sitting up in the chair today with visitor at the bedside. Trach was changed out to a number 6 shiley and patient reporting feeling like his neck is swelling up. He is able to swallow and does not appear to be in any respiratory distress. He is awake alert oriented and less agitated. Precedex has been weaned further and currrently running at 0.3 mcg/kg/hr. Patient remains on librium and seroquel. 11/15/2023 Patient is evaluated today sitting up in the intensive care unit he is resting in bed. Patient continues with the trach collar and has been off the mechanical ventilator for 2 days now. Additionally patient is scheduled to come off of the Precedex drip later on this afternoon and will be monitored overnight. He continues on Librium and Seroquel. His sputum culture is still positive for Klebsiella and staphylococcus aureus. Patient's mom is concerned about getting referrals for discharge as she feels he "" still has pneumonia" ID is following with this patient closely and he remains on IV cefepime while inpatient. His electrolytes are WNL and his white blood cell count has normalized. 11/16/2023 Patient is evaluated today in the ICU resting in bed. Remains on the trach collar. Has been weaned off the precedex gtt. Remains on seroquel and librium which will be weaned. Has been started on proloxin by psychiatry. Requiring frequent suctioning. Blood work is essentially unremarkable. Hgb 10.0. Hemodynamically stable. Review of systems: Unable to completely obtain as patient continues with the tracheostomy and attempting to speak although very raspy. Physical exam: Gen: This is a 48-year-old male, well-developed, awake and alert x 3 HEENT: Head is atraumatic, normocephalic. Pupils equal, round. Sclerae is anicteric. Tracheostomy in place with thick secretions noted. NECK: Supple. No JVD. No lymphadenopathy. No thyromegaly. LUNGS: Diminished breath sounds bilaterally otherwise clear to auscultation. There is some coarse rhonchi noted at the bases. No intercostal retractions. HEART: S1, S2 are muffled ABDOMEN: Soft. Bowel sounds are present. No masses. Continued tenderness noted on palpation of the pancreatic mid epigastric area. EXTREMITIES: No pedal edema. No calf tenderness. NEUROLOGICAL: Patient is currently awake, alert and oriented x 3 more awake and alert, agitated as he attempts to communicate and difficult to talk with the trach collar in place. Assessment: Acute hypoxemic respiratory failure secondary to alcohol withdrawal symptoms and DTs status post tracheostomy and weaned off the mechanical ventilator. Leukocytosis with low-grade temps, concern for pneumonia, sputum culture showing Staph aureus along with Klebsiella pneumonia Status post PEG tube placement Acute alcohol withdrawal symptoms and DTs Intertrigo left groin Uncontrolled hypertension. Improved now. Acute pancreatitis likely alcohol-related, on admission Acute kidney injury likely prerenal; resolved. Severe alcohol abuse Mild transaminitis, improved History of coronary disease Currently everyday smoker GI and DVT prophylaxis Full code Plan: Patient is status post tracheostomy on 11/01/2023. Patient has been transitioned to trach collar FiO2 28%. Infectious disease following and blood cultures thus far negative. Repeat sputum culture showing Staph aureus along with Klebsiella pneumonia. WBC normalized. Repeat sputum remains positive. Vancomycin discontinued and patient continues on IV cefepime. Patient has been started on prolixin. Seroquel and Librium will be tapered. Nystatin powder BID to the left groin Patient tolerating tube feedings thus far and rate has been increased. Physical therapy has been consulted for evaluation. Pending discharge to subacute rehab vs. LTAC. The impression and plan of care has been dictated by Madelyn Elliott, Nurse Practitioner as directed. Dr. Milton MD I have performed a history and physical examination and medical decision making of this patient, discussed the same with the dictator, and agree with the dictators assessment and plan as written, documented as a scribe. Based on total visit time, I have performed more than 50% of this visit. Objective - Vital Signs Vital signs: Vital Signs Temp 98.8 F 11/16/23 16:00 Pulse 89 11/16/23 16:00 Resp 12 11/16/23 16:00 BP 138/97 11/16/23 16:00 Pulse Ox 94 L 11/16/23 16:00 FiO2 28 11/16/23 16:00 Intake & Output 11/16/23 11/16/23 11/17/23 06:59 18:59 06:59 Intake Total 754 645 Output Total 300 650 Balance 454 -5 Weight 68.9 kg Intake: IV 190 175 Cefepime 2 gm In Sodium 100 125 Chloride 0.9% 100 ml @ 25 mls/hr IVPB Q8HR [facility] Rx# :[id number] Sodium Chloride 0.9% 1, 90 50 000 ml @ 10 mls/hr IV . Q24H [facility] Rx#:[id number] Tube Feeding 564 470 Output: Urine 300 650 Other: Voiding Method Urinal Urinal # Voids 1 1 # Bowel Movements 1 1 ABP, PAP, CO, CI - Last Documented Arterial Blood Pressure 134/82 - Labs CBC & Chem 7: 11/16/23 05:26 11/16/23 05:26 Labs: Abnormal Lab Results - Last 24 Hours (Table) 11/16/23 11/16/23 11/16/23 Range/Units 01:00 05:26 18:02 RBC 3.34 L (4.30-5.90) m/uL Hgb 10.0 L (13.0-17.5) gm/dL Hct 31.7 L (39.0-53.0) % POC Glucose (mg/dL) 121 H 113 H (70-110) mg/dL Assessment and Plan Time with Patient: Less than 30
[2023-11-17 00:06] LABS: Glucose,Whole Blood 116 mg/dL (70-110)
[2023-11-17 05:52] LABS: Glucose,Whole Blood 109 mg/dL (70-110)
[2023-11-17] MEDS: QUEtiapine 100 MG TAB PO SCH (08:45)
--- NOTE | 2023-11-17 09:23 | CDI ---
Documentation Clarification Form Date: 11/16/2023 02:45:00 PM From: Angelika Richardson RN, CCDS Phone: [phone] Admit Date: 10/23/2023 12:13:00 AM Patient Name: Federico Franks Visit Number: [id number] Discharge Date: ATTENTION: The Clinical Documentation Specialists (CDI) and [facility] Coding Staff appreciate your assistance in clarifying documentation. Please respond to the clarification below the line at the bottom and electronically sign. The CDI & [facility] Coding staff will review the response and follow-up if needed. Please note: Queries are made part of the Legal Health Record. If you have any questions, please contact the author of this message via ITS. Dr. Gonzalez Shiva Concern for pneumonia, sputum culture showing Staph aureus along with Klebsiella pneumonia is documented in the ongoing progress notes. Additional clarification regarding the type of pneumonia is requested. History/Risk Factors: Coronary Artery Disease (CAD), Hypertension, Current every day smoker, alcohol abuse Clinical Indicators: 10/22 WBC/Left shift: WBC 7.6 Neutrophils 89 CXR: 10/27: Likely pulmonary vascular congestion along with small effusion with adjacent atelectasis and or consolidation. CXR 10/28: Similar small bilateral pleural effusions with prominent bilateral lower lung opacites. 10/25 Sputum Culture: Staphylococcus aureus 11/06 Sputum Culture: Staphylococcus aureus Klebsiella pneumoniae 11/07 ID: Ongoing progress note Pneumonia. Patient sputum is growing MSSAA and Klebsiella. 11/07 VS: 97/66 99 21 100.2 Fi02 40% vent 11/07 Labs: 11.6 Neutrophils 9.7 11/06 Procalcitonin 0.29 Treatment: Cefepime 2 GM IVPB Q8 HRS 11/09-11/16 Please clarify the type of pneumonia, if known: 10/25 Sputum Culture: Staphylococcus aureus was it present on admission? [ ] Bacterial Pneumonia, specify causal organism (if known) [ ] Gram Negative Bacterial Pneumonia [ ] Bacterial Pneumonia Due to Strep [ x ] Bacterial Pneumonia Due to Staph [ ] Other bacteria (please specify) [ ] Other, please specify [ ] Unable to determine (Template Last Revised: September 2020) MTDD
--- NOTE | 2023-11-17 10:06 | CDI ---
Documentation Clarification Form Date: 11/17/2023 09:33:40 AM From: Angelika Richardson RN, CCDS Phone: [phone] Admit Date: 10/23/2023 12:13:00 AM Patient Name: Federico Franks Visit Number: [id number] Discharge Date: ATTENTION: The Clinical Documentation Specialists (CDI) and [facility] Coding Staff appreciate your assistance in clarifying documentation. Please respond to the clarification below the line at the bottom and electronically sign. The CDI & [facility] Coding staff will review the response and follow-up if needed. Please note: Queries are made part of the Legal Health Record. If you have any questions, please contact the author of this message via ITS. Dr. Abhay Mcmahon There is documentation of toxic metabolic in the Psychiatric Consult note on 11/15/27. Additional clarification is requested. History/Risk Factors: Coronary Artery Disease (CAD), Hypertension, Current every day smoker, Clinical Indicators: 28-year-old male transferred for acute pancreatitis, had a history of chronic alcohol abuse. He is in ICU on Precedex. Patient had respiratory failure. Now with trach and PEG tube placed on 11/05. Per nurse patient was possibly withdrawing from substances including alcohol and apparently when the Precedex was turned off patient became more agitated and combative and confused. He was admitted with acute alcohol withdrawal symptoms, acute delirium tremors. Treatment: ICU/Telemetry monitoring Trach monitor per pulmonary protocol Avoid narcotics and INTELLECTUAL PROPERTY MA[employer]GER sedatives, limit anticholinergic meds when possible Seroquel 100 MG PO BID Buspar 30 mg twice daily 11/09-11/16 Librium 20 MG Q 4 HRS continue to titrate Precedex off Prolixin 5 MG PO Q6 PRN as need for agitation/aggression 11/14-11/16 Can you please clarify toxic metabolic? [ X] Toxic metabolic encephalopathy multifactorial due to delirium, and titrating Precedex, expected. POA [ ] Other, please specify [ ] Unable to determine (Template Last Revised: September 2020) MTDD
[2023-11-17 11:41] LABS: Glucose,Whole Blood 113 mg/dL (70-110)
--- NOTE | 2023-11-17 11:58 | P.PN ---
Subjective Progress Note Date: 11/17/23 CHIEF COMPLAINT: Abdominal pain HISTORY OF PRESENT ILLNESS: Patient status post PEG tube placement on 11/06/23. Patient is status post tracheostomy placement on 11/02/23. Patient had his tracheostomy tube changed to a Shiley tube. Patient is tolerating tube feeds. PHYSICAL EXAM: VITAL SIGNS: Reviewed. GENERAL: no acute distress. Neck: trach site clean, dry and intact. ABDOMEN: Soft. Nondistended. Nontender. PEG tube site clean dry and intact ASSESSMENT: 1. Acute hypoxic respiratory failure due to alcohol withdraw syndrome 2. Severe protein calorie malnutrition 3. Acute alcoholic pancreatitis PLAN: -Continue tube feeds -Continue supportive care Physician Carpenter Ship note has been reviewed by physician. Signing provider agrees with the documented findings, assessment, and plan of care. Greater than 60% of the total time spent in counseling and coordination of care Objective - Vital Signs Vital signs: Vital Signs Temp 99.2 F 11/17/23 08:00 Pulse 80 11/17/23 08:00 Resp 16 11/17/23 08:00 BP 122/91 11/17/23 08:00 Pulse Ox 99 11/17/23 08:33 FiO2 28 11/17/23 08:33 Intake & Output 11/16/23 11/17/23 11/17/23 18:59 06:59 18:59 Intake Total 645 100 Output Total 650 500 Balance -5 -400 Weight 68.6 kg Intake: IV 175 100 Cefepime 2 gm In Sodium 125 100 Chloride 0.9% 100 ml @ 25 mls/hr IVPB Q8HR [facility] Rx# :[id number] Sodium Chloride 0.9% 1, 50 000 ml @ 10 mls/hr IV . Q24H [facility] Rx#:[id number] Tube Feeding 470 Output: Urine 650 500 Other: Voiding Method Urinal Urinal # Voids 1 2 # Bowel Movements 1 ABP, PAP, CO, CI - Last Documented Arterial Blood Pressure 134/82 - Labs CBC & Chem 7: 11/16/23 05:26 11/16/23 05:26 Labs: Abnormal Lab Results - Last 24 Hours (Table) 11/16/23 11/17/23 11/17/23 Range/Units 18:02 00:05 11:40 POC Glucose (mg/dL) 113 H 116 H 113 H (70-110) mg/dL
--- NOTE | 2023-11-17 12:53 | XR ---
EXAMINATION TYPE: XR chest 1V portable DATE OF EXAM: 11/17/2023 COMPARISON: 11/12/2019 HISTORY: Cough TECHNIQUE: Single frontal view of the chest is obtained. FINDINGS: Limited inspiration with left-sided consolidation. Contrast in the stomach. Tracheostomy t ube noted. Chronic rib cage deformities on the right. IMPRESSION: Patchy infiltrates correlate for pneumonia.
--- NOTE | 2023-11-17 13:13 | P.PN ---
Subjective Progress Note Date: 11/17/23 Principal diagnosis: Acute alcohol withdrawal 11/11/2023, the patient is being seen for a follow-up. The patient remains on a pressure support mode of mechanical ventilation with a pressure support of 7 and a PEEP of 5. Overnight, he was placed on Precedex and this morning and this is running at 0.3 mcg/kg/h. Otherwise, the patient is calm and comfortable and is not having any major respiratory distress. No significant orotracheal secretions. Enteral feeding is running at the rate of 10 cc an hour and the patient is currently on vital AF. No complaints. Amylase lipase levels are not elevated at this point. Distention. No fever this morning. Note that based on his yesterday's fever episode, the patient was placed on a broad-spectrum antibiotics and was started on vancomycin and cefepime. Repeat sputum Gram stain and culture still pending for now. Nevertheless, since then, the patient has been afebrile.. Hemodynamically stable without any significant hypotension. Blood work shows a WBC count of 7.8 with a hemoglobin 8.8 and a platelet count of 345 and electrolytes are all stable with a BUN of 14 and a creatinine of 0.6 and a sodium level of 137. Patient is on Seroquel 150 mg p.o. twice daily. The patient is also on BuSpar 30 mg p.o. twice daily. Ativan on as-needed basis. Precedex is being weaned off. 11/12/2023, patient is awake and alert. On and off he still requiring Precedex as the patient's agitation waxes and wanes. He is currently on Precedex at 0.7 mcg/kg/h and the patient is very much comfortable. Is currently on trach collar, FiO2 of 28%. Has been off the mechanical ventilator for the past 24 hours. Breathing is comfortable. No respiratory distress. No significant orotracheal secretions. Awaiting sputum Gram stain and culture and patient is currently covered with cefepime and vancomycin. He has afebrile for now. C ontinues to receive enteral feeding for nutritional support and the patient is currently on Nepro at rate of 20 cc an hour. He is also on Seroquel for agitation. He is on BuSpar. Librium will be also added as we are trying to wean this patient off Precedex. He is on Lovenox for DVT prophylaxis. Sitting Dilaudid on an as-needed basis. Adequate urine output. White cell count at 7.9 with a hemoglobin 11.2, BUN 16 with a creatinine of 0.6 and a sodium levels at 137. No abdominal distention. Tolerating diet which is in the form of Nepro, via PEG tube. No abdominal distention. Patient was evaluated today on 11/13/2023, patient remains in the ICU, he is on trach collar at 28% FiO2, patient seems to be calm, however he has his. Swelling in he becomes extremely agitated and restless, still requiring Precedex at 0.6 mcg/kg/h, he is also on Seroquel at 150 twice daily, Librium 50 mg 3 karla es daily and on Ativan as needed. Still not quite ready to be moved out of the ICU, patient is receiving Nepro at 47 cc/h via PEG tube, patient has a trach collar and is receiving 28% FiO2. Chest x-ray continues to show bibasilar infiltrates left more so than right, previously 6.4 hemoglobin 10.3 basic metabolic profile is normal renal profile is normal. Patient remains on cefepime, and his vancomycin was discontinued by Dr. Goddard and remains on GI DVT prophylaxis. Patient was read today on 11/14/2023, patient remains in the ICU, remains on trach collar, he is on Precedex otherwise he gets extremely agitated and restless, his Precedex is down to 0.3 mcg/kg/h. Patient is still receiving Nepro via PEG tube, patient seems to be calm today but according to the nurses he had episodes where he gets extremely agitated. Today I recommended changing his tracheostomy to a Shiley size 6, and this will be fenestrated, will discontinue his Bivona and in fact I went ahead and at bedside proceeded to exchanging the tracheostomy is, and now he has a size 6 Shiley fenestrated, we can now potentially cap the trach intermittently, and eventually consider decannulation. However considering the patient has and continues to have significant amount of purulent secretions, I will keep that in place for now. His chest x-ray is showing improvement in his bilateral interstitial infiltrate/edema. WBC count today is 8.7 hemoglobin is 11.2. Basic metabolic profile is normal and renal profile is normal Patient was seen and examined today on 11/15/2023, remains in the ICU, still requiring a low-dose of Precedex otherwise he gets extremely agitated, patient had his tracheostomy tube changed to a Shiley tube, feels much better now that you could have a speaking valve on discharge with tube/fenestrated tube and the patient could talk. Patient again has a speaking valve on the tube, and is wo rking fine. Remains on Precedex at 0.1 mcg/kg/h remains on Nepro via PEG tube, remains on antibiotics in the form of cefepime, patient had MSSA and Klebsiella in the sputum.WBC count is 9.7 hemoglobin 10.4 basic metabolic profile is normal Patient was reevaluated today on 11/16/2023, he is now off Precedex, patient was seen by psychiatry, and advised starting the patient on Prolixin, 5 mg p.o. pam ry 6 hours as needed. Advised cutting down on benzodiazepines. Patient actually is doing well today, comfortable, not in distress, continues to have significant secretions from the tracheostomy tube. Patient remains on antibiotic, and today I recommended that he goes back on Lasix.No chest x-ray was done today, however his chest x-ray from 11/11, has shown mild improvement in the acute pulmonary disease/CHF. In addition patient had what seemed to be a picture of aspiration pneumonia, steadily improving.WBC count today is 8.7 hemoglobin is 10 basic metabolic profile is normal and renal profile is normal Patient was reevaluated today on 11/27/2023, patient remains in the ICU, he is actually now an overflow. He was supposed to go to [address] but today I will make arrangements for the patient to go to a medical surgical floor, patient is doing well he is on trach collar/room air, continues to have lots of secretions being suctioned easily. Remains on cefepime, patient seems to be calm and not in any distress. Chest x-ray is showing significant improvement compared to previous x-rays, he has minimal patchy areas of atelectasis, doubt infiltrate mostly in the left lower lobe area WBC count is 8.7 hemoglobin is 10 basic metabolic profile is normal and renal profile is normal. Objective - Vital Signs Vital signs: Vital Signs Temp 99.2 F 11/17/23 08:00 Pulse 80 11/17/23 08:00 Resp 16 11/17/23 08:00 BP 122/91 11/17/23 08:00 Pulse Ox 99 11/17/23 08:33 FiO2 28 11/17/23 08:33 Intake & Output 11/16/23 11/17/23 11/17/23 18:59 06:59 18:59 Intake Total 645 100 Output Total 650 500 Balance -5 -400 Weight 68.6 kg 68.6 kg Intake: IV 175 100 Cefepime 2 gm In Sodium 125 100 Chloride 0.9% 100 ml @ 25 mls/hr IVPB Q8HR [facility] Rx# :[id number] Sodium Chloride 0.9% 1, 50 000 ml @ 10 mls/hr IV . Q24H [facility] Rx#:[id number] Tube Feeding 470 Output: Urine 650 500 Other: Voiding Method Urinal Urinal # Voids 1 2 # Bowel Movements 1 ABP, PAP, CO, CI - Last Documented Arterial Blood Pressure 134/82 - Exam GENERAL EXAM: Revealed 48-year-old white male, with tracheostomy, on room air and speaking valve in place. HEAD: Normocephalic and atraumatic EYES: Normal reaction of pupils, equal size. NOSE: Clear with pink turbinates. THROAT: No erythema or exudates. NECK: No masses, no JVD. CHEST: No chest wall deformity. Symmetrical chest wall expansion LUNGS: Minimal crackles bilaterally no rhonchi no wheezes Cardiac: Normal S1-S2, no S3 gallop. ABDOMEN: Soft nontender no megaly no rebound no guarding SKIN: No rashes CENTRAL NERVOUS SYSTEM: Patient is awake, seems to be oriented x 3, calm. EXTREMITIES: No clubbing edema or cyanosis - Labs CBC & Chem 7: 11/16/23 05:26 11/16/23 05:26 Labs: Abnormal Lab Results - Last 24 Hours (Table) 11/16/23 11/17/23 11/17/23 Range/Units 18:02 00:05 11:40 POC Glucose (mg/dL) 113 H 116 H 113 H (70-110) mg/dL Assessment and Plan Assessment: Impression: Acute hypoxic respiratory failure secondary to acute alcohol withdrawal and unable to protect his airways, required intubation mechanical ventilation on 10/26/2023, required tracheostomy on 11/01 and PEG tube placement on 11/05, tracheostomy changed to a Shiley tracheostomy on 11/13/fenestrated Shiley size 6 Acute alcohol withdrawal with acute alcohol intoxication, patient required a prolonged course of intubation and sedation because of his alcohol withdrawal. Acute pancreatitis, EtOH related. Resolved Abdominal pain, secondary to acute pancreatitis, resolved Acute kidney injury, resolved History of alcoholism Mild transaminitis History of coronary artery disease Current everyday smoker Hypertensive urgency, resolved Acute fever, currently under investigation, covered empirically with cefepime, however his vancomycin has been discontinued by Dr. Goddard. Recommendation: Transfer patient to regular medical floor health services rn to see for placement Stop antibiotics Continue nutritional support/enteral feeding Tracheostomy care as per protocol add suction as needed Continue GI prophylaxis Continue Lovenox, GI prophylaxis Continue physical therapy Intermittent diuresis Will continue to follow Time with Patient: Less than 30
--- NOTE | 2023-11-17 13:53 | P.PN ---
Progress Note - Text Progress Note Date: 11/17/23 Interval History: Patient was seen today for psychiatric follow up. Patient's nurse states that patient has been doing a bit better today overall, remains on the trach and had a barium swallow earlier today. Patient appeared to be fairly sedated this morning, was not able to speak much at all with proposal lead writer, opened his eyes briefly and then closed them and did not respond further and continue to sleep. He appears to be resting comfortably. He has been taking medications as prescribed, vital signs appear to be improving. Inspector [employer] spoke with nurse again about the plan to continue tapering Librium and also will be switching dose of Seroquel to 150 mg at nighttime and 50 mg during the day, can potentially discontinue the daily dose if patient is doing well. MENTAL STATUS EXAM: General Appearance: Patient appears to be thin, has a trach tube with a speaking valve, stated age is somnolent, patient appears to have fair hygiene and grooming wearing hospital gown Behavior: Patient is calmly lying in bed without any agitated behavior. Patient is somnolent Speech: Not speaking due to somnolence Mood/Affect: Unable to obtain Suicidality/Homicidality: Unable to obtain Perceptions: Unable to obtain Though content/process: Unable to obtain Memory and concentration: Unable to obtain Judgment and insight: poor IMPRESSIONS: continue with current assessment PLAN: -At this time patient DOES NOT meet criteria for inpatient psychiatric admission. -Delirium precautions recommended with patient including - avoiding use of narcotics and ACCOUNTS RECEIVABLE CLERK sedatives, limit anticholinergic medications when possible, frequent re-orientation, minimize use of restraints, open window shades during the day and close them at night -Would recommend the following medication changes/additions: Please attempt to limit the use of benzodiazepines including Ativan and Xanax Valium and also steroids and antihistamine medications as this will precipitate and likely worsen patient's confusion and delirium. changed dose of Seroquel to 50 mg daily +150 mg nightly for mood stabilization/psychosis/insomnia. Can consider titrating down Seroquel even further especially be morning dose if patient is doing well after tomorrow to prevent oversedation. Continue with BuSpar 30 mg twice daily for anxiety, continue tapering Librium dose with attempt to titrate off in the next few days, and is now off of Precedex. Prolixin IM or p.o. as needed for agitation/aggression. -Communicated plan to patient's nurse -At this time psychiatry will sign off. -Please contact with any questions.
--- NOTE | 2023-11-17 14:49 | P.PN ---
Subjective Progress Note Date: 11/17/23 48-year-old white male with past medical history significant for hypertension, coronary artery disease, current everyday smoker, and alcohol abuse. He was transferred from [facility] 10/22/2023 for acute pancreatitis. He was noted to be intoxicated on arrival to outside facility, with an alcohol level of 34 mg/dL. He required ICU admission for Precedex infusion. He was also noted to have severely elevated lipase and amylase levels. An abdominal and pelvis CT was performed, which identified peripancreatic inflammatory stranding and fluid consistent with acute pancreatitis. No pseudoc yst, abscess, or pancreatic necrosis. No gallstones or ductal dilation. There was decreased attenuation of the hepatic parenchyma, suggestive of fatty infiltration. Patient was dehdydrated and noted to have sustained an WILFRIDO. It appears he was fluid resuscitated with 2 L of crystalloid fluid. He was then transferred to [facility]. CBC from yesterday: WBC count 7.6, hemoglobin 13.9, hematocrit 42, platelets 110. Most recent CMP from yesterday: Sodium 138, potassium 4.4, chloride 108, serum bicarb 19, BUN 18, creatinine 1.13, glucose 94. AST 97, ALT 74, ALP 156, total bilirubin 1. Lipase 11,329 and amylase 1468. Patient is currently lethargic and not making much sense when talking. Unsure of when last drink was. Precedex is infusing at 0.4 mcg/kg/h. He does have bilateral upper extremity soft restraints on, which likely can be discontinued. Blood pressure is noted to be hypertensive, has received a clonidine 0.2 mg patch, which is fallen off and will be replaced. EKG shows normal sinus rhythm without any obvious acute ischemic changes. Patient's pain appears well-managed with current regimen of as needed Dilaudid. He does have some facial grimacing with palpation of the bilateral upper abdomen. Normal saline is infusing at 150 MLS per hour. Currently on room air, in no acute respiratory distress. Afebrile. He has been moved to room 262 in the intensive care unit. -- Plan of care was discussed with patient's mother; reports she was told by family noticed that patient is now qualifying for hospice/palliative care -- Patient condition discussed in great detail; account resolution expert recommendations discussed with patient also; no plan to consult hospice or palliative care at this time 11/04/2023 Patient is seen and evaluated in room at bedside; discussed with nursing staff; no family members present in the room Patient remains on mechanical ventilator. He is on volume assist-control Blood gases show pO2 of 72, pCO2 47, pH is 7.41. Lab review shows white count 12.5, hemoglobin 9.9, hematocrit 30.3, and platelet count 357,000. Sodium 135, potassium 4.3, chlorides 102, CO2 28, BUN 19, creatinine 0.64. Glucose is 86. Phosphorus 4.7, calcium 9, magnesium 1.9. Sputum from October 25 shows evidence of Staphylococcus aureus. Chest x-ray shows bilateral small effusions, with adjacent atelectasis. -- Plan for PEG tube placement on 11/06/2023; and has been placed back on tube feeding -Intensive care service planning to wean off the fentanyl, patient has been placed on Dilaudid 1 mg every 4 hours -- Patient is status post tracheostomy; PEG tube placement rescheduled for Monday due to nonavailability of OR 11/05/2023 Patient is seen and evaluated in room at bedside; patient remains on mechanical ventilator. Settings include volume assist-control, rate 20, tidal volume 400, FiO2 50%, PEEP of 5. -- Blood gases show pO2 112, pCO2 45, pH is 7.46. The patient is getting lactated Ringer's at 20 cc an hour, propofol at 10 mcg/kg/min, and tube feedings with Nepro, at 10 cc an hour, with a goal of 19. - White count 14, hemoglobin 10.5, hematocrit 31.8, and platelet count 365,000. Sodium 137, potassium 3.7, chlorides 103, CO2 31, BUN 16, creatinine 0.69. Calcium is 9.2. Magnesium 1.9. Sputum from the was positive for Staphylococcus aureus. The patient has completed his antibiotics. Chest x-ray shows bilateral patchy infiltrates, which could be on the basis of fluid, and or pneumonia. 11/17/2023 --patient is seen and evaluated in room at bedside; remains in the ICU. Patient is doing well he is on trach collar/room air, continues to have lots of secretions being suctioned easily. Vital signs are reviewed and stable with temperature of 99.2, pulse 80, respirations 16 and blood pressure 122/91 -- Remains on cefepime, patient seems to be calm and not in any distress. Chest x-ray is showing significant improvement compared to previous x-rays, he has minimal patchy areas of atelectasis, doubt infiltrate mostly in the left lower lobe area WBC count is 8.7 hemoglobin is 10 basic metabolic profile is normal and renal profile is normal. Transfer patient to regular medical floor; intensive care team recommending to discontinue antibiotics auto specialty services manager to see for placement Objective - Vital Signs Vital signs: Vital Signs Temp 99.2 F 11/17/23 08:00 Pulse 80 11/17/23 08:00 Resp 16 11/17/23 08:00 BP 122/91 11/17/23 08:00 Pulse Ox 99 11/17/23 08:33 FiO2 28 11/17/23 08:33 Intake & Output 11/16/23 11/17/23 11/17/23 18:59 06:59 18:59 Intake Total 645 100 Output Total 650 500 Balance -5 -400 Weight 68.6 kg Intake: IV 175 100 Cefepime 2 gm In Sodium 125 100 Chloride 0.9% 100 ml @ 25 mls/hr IVPB Q8HR [facility] Rx# :[id number] Sodium Chloride 0.9% 1, 50 000 ml @ 10 mls/hr IV . Q24H [facility] Rx#:[id number] Tube Feeding 470 Output: Urine 650 500 Other: Voiding Method Urinal Urinal # Voids 1 2 # Bowel Movements 1 ABP, PAP, CO, CI - Last Documented Arterial Blood Pressure 134/82 - Exam Patient is sedated, intubated and on mechanical ventilator.. HEENT: Normocephalic. Neck is supple. Pupils reactive. Nostrils clear. Oral cavity is moist. Neck reveals no JVD, carotid bruits, or thyromegaly. CHEST EXAMINATION: Trachea is central. Symmetrical expansion. Lung ghotra clear to auscultation and percussion. CARDIAC: Normal S1, S2 with no gallops. No murmurs ABDOMEN: Soft. Bowel sounds normal. No organomegaly. No abdominal bruits. Extremities: reveal no edema. No clubbing or cyanosis Neurologically sedated and intubated. No gross focal deficits noted Skin: No rash or skin lesions. Psychiatric: Could not be assessed at this time Musculoskeletal: No joint swelling or deformity. - Labs CBC & Chem 7: 11/16/23 05:26 11/16/23 05:26 Labs: Abnormal Lab Results - Last 24 Hours (Table) 11/16/23 11/17/23 Range/Units 18:02 00:05 POC Glucose (mg/dL) 113 H 116 H (70-110) mg/dL Assessment and Plan Assessment: Acute hypoxemic respiratory failure second alcohol withdrawal symptoms and DTs currently intubated and on mechanical ventilator since October 26, 2023 Acute alcohol withdrawal symptoms and DTs Uncontrolled hypertension. Improved now. Acute pancreatitis likely alcohol-related Acute kidney injury likely prerenal improved now. Severe alcohol abuse Mild transaminitis improved History of coronary disease Currently everyday smoker GI and DVT prophylaxis Plan: Patient is on mechanical ventilator. Continued on propofol and fentanyl drip was added. Cleviprex is off. Continue to titrate blood pressure medications. Continue with tube feedings. IV fluids to KVO.. Monitor urine output. Antibiotics have been discontinued. Daily weaning trials as per critical care team. General surgery was consulted for possible trach and PEG tube placement Continue to follow closely
--- NOTE | 2023-11-17 15:23 | FL ---
MODIFIED SWALLOW / DEGLUTITION STUDY EXAMINATION TYPE: FL barium swallow w video DATE OF EXAM: 11/17/2023 CLINICAL HISTORY: 48-year-old male recent tracheostomy, dysphagia, poor clearing of secretions. TECHNIQUE: Deglutition study is performed utilizing thin liquid barium, honey and nectar thick liqui d barium, barium thick pudding. Total fluoroscopy time: 2 minutes 27 seconds. Total images: None. Real-time fluoroscopy was provided to speech pathology. Total dose: 134.16 mGycm2. COMPARISON: None. FINDINGS: Significant residuals are present in both the vallecula and piriform sinuses. There is aspiration of residuals with honey liquid and pudding consistency. There is intermittent silent aspiration with thi n liquid and nectar liquid consistencies. Tracheostomy cannula noted. IMPRESSION: Intermittent silent aspiration with thin and nectar. Aspiration of residuals with honey and pudding c onsistency. Please refer to speech therapist notes for further details if necessary.
--- NOTE | 2023-11-17 16:03 | P.PN ---
Subjective Progress Note Date: 11/17/23 Principal diagnosis: Reason for follow-up is fever/leukocytosis/pneumonia Patient is a 48-year-old male with a past medical history significant for hypertension coronary disease anxiety current everyday smoker presenting to the hospital more than 2 weeks ago for evaluation of abdominal pain, has been diagnosed and treated for acute pancreatitis secondary to chronic alcohol patient failed to be extubated and got trach and PEG has been running a low- grade fever prompting this consultation. On today's evaluation that is 11/17/2023,the patient remains to be afebrile, patient is on 28% trach collar and is breathing comfortably no chest pain or any worsening cough no vomiting or diarrhea reported by the nursing staff. No new labs has been repeated today Objective - Vital Signs Vital signs: Vital Signs Temp 99.2 F 11/17/23 08:00 Pulse 80 11/17/23 08:00 Resp 16 11/17/23 08:00 BP 122/91 11/17/23 08:00 Pulse Ox 99 11/17/23 08:33 FiO2 28 11/17/23 08:33 Intake & Output 11/16/23 11/17/23 11/17/23 18:59 06:59 18:59 Intake Total 645 100 Output Total 650 500 Balance -5 -400 Weight 68.6 kg 68.6 kg Intake: IV 175 100 Cefepime 2 gm In Sodium 125 100 Chloride 0.9% 100 ml @ 25 mls/hr IVPB Q8HR [facility] Rx# :[id number] Sodium Chloride 0.9% 1, 50 000 ml @ 10 mls/hr IV . Q24H [facility] Rx#:[id number] Tube Feeding 470 Output: Urine 650 500 Other: Voiding Method Urinal Urinal # Voids 1 2 # Bowel Movements 1 ABP, PAP, CO, CI - Last Documented Arterial Blood Pressure 134/82 - Exam GENERAL DESCRIPTION: Middle-age male lying in bed in no distress RESPIRATORY SYSTEM: Unlabored breathing , decreased breath sounds at bases HEART: S1 S2 regular rate and rhythm , ABDOMEN: Soft , mild distention and tenderness EXTREMITIES: No edema feet - Labs CBC & Chem 7: 11/16/23 05:26 11/16/23 05:26 Labs: Abnormal Lab Results - Last 24 Hours (Table) 11/16/23 11/17/23 11/17/23 Range/Units 18:02 00:05 11:40 POC Glucose (mg/dL) 113 H 116 H 113 H (70-110) mg/dL Assessment and Plan (1) Fever Current Visit: Yes Status: Acute Code(s): R50.9 - FEVER, UNSPECIFIED SNOMED Code(s): 324948949 (2) Leukocytosis Current Visit: Yes Status: Acute Code(s): D72.829 - ELEVATED WHITE BLOOD CELL COUNT, UNSPECIFIED SNOMED Code(s): 469850061 (3) Pneumonia Current Visit: Yes Status: Acute Code(s): J18.9 - PNEUMONIA, UNSPECIFIED ORG ANISM SNOMED Code(s): 114171997 (4) Alcoholic pancreatitis Current Visit: Yes Status: Acute Code(s): K85.20 - ALCOHOL INDUCED ACUTE PANCREATITIS WITHOUT NECROSIS OR INFCT SNOMED Code(s): 844914804 Plan: 1patient with low-grade fever in this patient with initial admission to the hospital for acute pancreatitis secondary to his alcoholism patient did get intubated because of respiratory distress and did have a positive sputum culture for MSSA on 10/26/2023 patient failed to be extubated and is s/p trach on 11/02/2023 and PEG tube on 11/06/2023 with the etiology of low-grade fever elevated white count is multifactorial question of pneumonia versus abdominal etiology and the patient was noted to have significant abdominal distention and apparently the patient did not have bowel movement for the last 5 to 6 days per the nursing staff 2-patient CT of abdominal pelvis with contrast, did not show any worsening panc reatitis pseudocyst or abscess mild cystitis and effusion 3-patient sputum is growing MSSA and Klebsiella 4-patient seem to have responded to cefepime, which will be continued while inpatient and will transition to oral antibiotic on discharge Dictation was produced using [employer] dictation software. please excuse any grammatical, word or spelling errors. Time with Patient: Less than 30
[2023-11-17 18:06] LABS: Glucose,Whole Blood 103 mg/dL (70-110)
[2023-11-17] MEDS: QUEtiapine 50 MG TAB PO SCH (21:43)
[2023-11-17] MEDS: flUPHENAZine 2.5 MG/ML (MDV) 10 ML VIAL IM PRN (22:19)
[2023-11-18 00:23] LABS: Glucose,Whole Blood 89 mg/dL (70-110)
[2023-11-18 05:37] LABS: Glucose,Whole Blood 97 mg/dL (70-110)
[2023-11-18 07:23] LABS: Glucose,Whole Blood 111 mg/dL (70-110)
[2023-11-18] MEDS: QUEtiapine 50 MG TAB PO SCH (08:32)
[2023-11-18 12:01] LABS: Glucose,Whole Blood 107 mg/dL (70-110)
--- NOTE | 2023-11-18 12:52 | P.PN ---
Subjective Progress Note Date: 11/18/23 Principal diagnosis: Acute alcohol withdrawal 11/11/2023, the patient is being seen for a follow-up. The patient remains on a pressure support mode of mechanical ventilation with a pressure support of 7 and a PEEP of 5. Overnight, he was placed on Precedex and this morning and this is running at 0.3 mcg/kg/h. Otherwise, the patient is calm and comfortable and is not having any major respiratory distress. No significant orotracheal secretions. Enteral feeding is running at the rate of 10 cc an hour and the patient is currently on vital AF. No complaints. Amylase lipase levels are not elevated at this point. Distention. No fever this morning. Note that based on his yesterday's fever episode, the patient was placed on a broad-spectrum antibiotics and was started on vancomycin and cefepime. Repeat sputum Gram stain and culture still pending for now. Nevertheless, since then, the patient has been afebrile.. Hemodynamically stable without any significant hypotension. Blood work shows a WBC count of 7.8 with a hemoglobin 8.8 and a platelet count of 345 and electrolytes are all stable with a BUN of 14 and a creatinine of 0.6 and a sodium level of 137. Patient is on Seroquel 150 mg p.o. twice daily. The patient is also on BuSpar 30 mg p.o. twice daily. Ativan on as-needed basis. Precedex is being weaned off. 11/12/2023, patient is awake and alert. On and off he still requiring Precedex as the patient's agitation waxes and wanes. He is currently on Precedex at 0.7 mcg/kg/h and the patient is very much comfortable. Is currently on trach collar, FiO2 of 28%. Has been off the mechanical ventilator for the past 24 hours. Breathing is comfortable. No respiratory distress. No significant orotracheal secretions. Awaiting sputum Gram stain and culture and patient is currently covered with cefepime and vancomycin. He has afebrile for now. C ontinues to receive enteral feeding for nutritional support and the patient is currently on Nepro at rate of 20 cc an hour. He is also on Seroquel for agitation. He is on BuSpar. Librium will be also added as we are trying to wean this patient off Precedex. He is on Lovenox for DVT prophylaxis. Sitting Dilaudid on an as-needed basis. Adequate urine output. White cell count at 7.9 with a hemoglobin 11.2, BUN 16 with a creatinine of 0.6 and a sodium levels at 137. No abdominal distention. Tolerating diet which is in the form of Nepro, via PEG tube. No abdominal distention. Patient was evaluated today on 11/13/2023, patient remains in the ICU, he is on trach collar at 28% FiO2, patient seems to be calm, however he has his. Swelling in he becomes extremely agitated and restless, still requiring Precedex at 0.6 mcg/kg/h, he is also on Seroquel at 150 twice daily, Librium 50 mg 3 karla es daily and on Ativan as needed. Still not quite ready to be moved out of the ICU, patient is receiving Nepro at 47 cc/h via PEG tube, patient has a trach collar and is receiving 28% FiO2. Chest x-ray continues to show bibasilar infiltrates left more so than right, previously 6.4 hemoglobin 10.3 basic metabolic profile is normal renal profile is normal. Patient remains on cefepime, and his vancomycin was discontinued by Dr. Goddard and remains on GI DVT prophylaxis. Patient was read today on 11/14/2023, patient remains in the ICU, remains on trach collar, he is on Precedex otherwise he gets extremely agitated and restless, his Precedex is down to 0.3 mcg/kg/h. Patient is still receiving Nepro via PEG tube, patient seems to be calm today but according to the nurses he had episodes where he gets extremely agitated. Today I recommended changing his tracheostomy to a Shiley size 6, and this will be fenestrated, will discontinue his Bivona and in fact I went ahead and at bedside proceeded to exchanging the tracheostomy is, and now he has a size 6 Shiley fenestrated, we can now potentially cap the trach intermittently, and eventually consider decannulation. However considering the patient has and continues to have significant amount of purulent secretions, I will keep that in place for now. His chest x-ray is showing improvement in his bilateral interstitial infiltrate/edema. WBC count today is 8.7 hemoglobin is 11.2. Basic metabolic profile is normal and renal profile is normal Patient was seen and examined today on 11/15/2023, remains in the ICU, still requiring a low-dose of Precedex otherwise he gets extremely agitated, patient had his tracheostomy tube changed to a Shiley tube, feels much better now that you could have a speaking valve on discharge with tube/fenestrated tube and the patient could talk. Patient again has a speaking valve on the tube, and is wo rking fine. Remains on Precedex at 0.1 mcg/kg/h remains on Nepro via PEG tube, remains on antibiotics in the form of cefepime, patient had MSSA and Klebsiella in the sputum.WBC count is 9.7 hemoglobin 10.4 basic metabolic profile is normal Patient was reevaluated today on 11/16/2023, he is now off Precedex, patient was seen by psychiatry, and advised starting the patient on Prolixin, 5 mg p.o. pam ry 6 hours as needed. Advised cutting down on benzodiazepines. Patient actually is doing well today, comfortable, not in distress, continues to have significant secretions from the tracheostomy tube. Patient remains on antibiotic, and today I recommended that he goes back on Lasix.No chest x-ray was done today, however his chest x-ray from 11/11, has shown mild improvement in the acute pulmonary disease/CHF. In addition patient had what seemed to be a picture of aspiration pneumonia, steadily improving.WBC count today is 8.7 hemoglobin is 10 basic metabolic profile is normal and renal profile is normal Patient was reevaluated today on 11/17/2023, patient remains in the ICU, he is actually now an overflow. He was supposed to go to 3 [address] but today I will make arrangements for the patient to go to a medical surgical floor, patient is doing well he is on trach collar/room air, continues to have lots of secretions being suctioned easily. Remains on cefepime, patient seems to be calm and not in any distress. Chest x-ray is showing significant improvement compared to previous x-rays, he has minimal patchy areas of atelectasis, doubt infiltrate mostly in the left lower lobe area WBC count is 8.7 hemoglobin is 10 basic metabolic profile is normal and renal profile is normal. Patient was evaluated today on 11/18/2023, patient is now on the regular medical floor, sitting in bed, does not seem to be in any distress, he seems to be a bit slow, calm, patient has a nasal cannula and he has a tracheostomy in site with a speaking valve. Patient is afebrile, he is saturating at 98%, again he is on a nasal cannula, blood pressure is stable, continues to have significant tracheal secretions. Chest x-ray yesterday showed minimal patchy infiltrates questionable pneumonia or atelectasis, patient remains on antibiotics as per ID on the case. Objective - Vital Signs Vital signs: Vital Signs Temp 97.8 F 11/18/23 07:25 Pulse 92 11/18/23 07:25 Resp 16 11/18/23 07:25 BP 138/81 11/18/23 07:25 Pulse Ox 98 11/18/23 08:32 FiO2 35 11/18/23 08:32 Intake & Output 11/17/23 11/18/23 11/18/23 18:59 06:59 18:59 Intake Total 200 Output Total 475 200 400 Balance -275 -200 -400 Weight 68.6 kg 59.5 kg Intake: IV 200 Cefepime 2 gm In Sodium 200 Chloride 0.9% 100 ml @ 25 mls/hr IVPB Q8HR [facility] Rx# :[id number] Output: Urine 475 200 400 Other: Voiding Method Urinal Urinal # Voids 1 1 ABP, PAP, CO, CI - Last Documented Arterial Blood Pressure 134/82 - Exam GENERAL EXAM: Revealed 48-year-old white male, with tracheostomy, 2 L nasal cannula via and speaking valve in place. HEAD: Normocephalic and atraumatic EYES: Normal reaction of pupils, equal size. NOSE: Clear with pink turbinates. THROAT: No erythema or exudates. NECK: No masses, no JVD. CHEST: No chest wall deformity. Symmetrical chest wall expansion LUNGS: Minimal crackles bilaterally no rhonchi no wheezes Cardiac: Normal S1-S2, no S3 gallop. ABDOMEN: Soft nontender no megaly no rebound no guarding SKIN: No rashes CENTRAL NERVOUS SYSTEM: Patient is awake, seems to be oriented x 3, calm. EXTREMITIES: No clubbing edema or cyanosis - Labs CBC & Chem 7: 11/16/23 05:26 11/16/23 05:26 Labs: Abnormal Lab Results - Last 24 Hours (Table) 11/18/23 Range/Units 07:22 POC Glucose (mg/dL) 111 H (70-110) mg/dL Assessment and Plan Assessment: Impression: Acute hypoxic respiratory failure secondary to acute alcohol withdrawal and unable to protect his airways, required intubation mechanical ventilation on 10/26/2023, required tracheostomy on 11/01 and PEG tube placement on 11/05, tracheostomy changed to a Shiley tracheostomy on 11/13/fenestrated Shiley size 6 Acute alcohol withdrawal with acute alcohol intoxication, patient required a prolonged course of intubation and sedation because of his alcohol withdrawal. Acute pancreatitis, EtOH related. Resolved Abdominal pain, secondary to acute pancreatitis, resolved Acute kidney injury, resolved History of alcoholism Mild transaminitis History of coronary artery disease Current everyday smoker Hypertensive urgency, resolved Acute fever, currently under investigation, covered empirically with cefepime, however his vancomycin has been discontinued by Dr. Goddard. Recommendation: Continue tracheostomy care inpatient services rn to see for placement Continue nutritional support/enteral feeding patient has a PEG tube and receiving enteral feeding Continue GI prophylaxis Continue DVT prophylaxis Continue physical therapy Intermittent gentle diuresis Will continue to follow Time with Patient: Less than 30
[2023-11-18] MEDS: IPRATROPIUM-ALBUTEROL 3 ML NEB INHALATION PRN (12:54)
[2023-11-18 13:25] LABS: Basophils # (A) 0.1 k/uL (0-0.2); Basophils % (A) 1 %; Eosinophils # (A) 0.7 k/uL (0-0.7); Eosinophils % (A) 6 %; HCT 31.9 % (39.0-53.0); HGB 10.3 gm/dL (13.0-17.5); Hypochromasia Slight; Lymphocytes # (A) 1.8 k/uL (1.0-4.8); Lymphocytes % (A) 16 %; MCHC 32.4 g/dL (31.0-37.0); MCV 95.6 fL (80.0-100.0); Mean Platelet Volume 8.2; Monocytes # (A) 0.5 k/uL (0-1.0); Monocytes % (A) 5 %; Neutrophils # (A) 7.7 k/uL (1.3-7.7); Neutrophils % (A) 72 %; Platelet Count 427 k/uL (150-450); RBC 3.33 m/uL (4.30-5.90); RDW 15.3 % (11.5-15.5); WBC 10.8 k/uL (3.8-10.6)
[2023-11-18 13:33] LABS: ALT 15 U/L (4-49); AST 26 U/L (17-59); African American GFR (CKD) >90 (>60 ml/min/1.73 sqM); Albumin 3.1 g/dL (3.5-5.0); Alkaline Phosphatase 73 U/L (38-126); Anion Gap 5 mmol/L; Blood Urea Nitrogen 22 mg/dL (9-20); Calcium 10.1 mg/dL (8.4-10.2); Carbon Dioxide 28 mmol/L (22-30); Chloride 105 mmol/L (98-107); Globulin 3.1 g/dL; Glucose 114 mg/dL (74-99); Non-African American GFR(CKD) >90 (>60 ml/min/1.73 sqM); Sodium 138 mmol/L (137-145); Total Bilirubin 0.3 mg/dL (0.2-1.3); Total Protein 6.2 g/dL (6.3-8.2)
[2023-11-18] MEDS: IPRATROPIUM-ALBUTEROL 3 ML NEB INHALATION SCH (15:21)
[2023-11-18 18:14] LABS: Glucose,Whole Blood 114 mg/dL (70-110)
--- NOTE | 2023-11-18 21:24 | P.PN ---
Subjective Progress Note Date: 11/18/23 Principal diagnosis: Reason for follow-up is fever/leukocytosis/pneumonia Patient is a 48-year-old male with a past medical history significant for hypertension coronary disease anxiety current everyday smoker presenting to the hospital more than 2 weeks ago for evaluation of abdominal pain, has been diagnosed and treated for acute pancreatitis secondary to chronic alcohol patient failed to be extubated and got trach and PEG has been running a low- grade fever prompting this consultation. On today's evaluation that is 11/18/2023, the patient continues to be afebrile, the patient is on 35% trach collar and breathing comfortably, the Pt sleepy lethargic not in any distress no vomiting diarrhea or any other changes reported by the nursing staff. Patient white count is 10.8, creatinine 0.86 Objective - Vital Signs Vital signs: Vital Signs Temp 97.8 F 11/18/23 07:25 Pulse 92 11/18/23 07:25 Resp 16 11/18/23 07:25 BP 138/81 11/18/23 07:25 Pulse Ox 98 11/18/23 08:32 FiO2 35 11/18/23 08:32 Intake & Output 11/17/23 11/18/23 11/18/23 18:59 06:59 18:59 Intake Total 200 Output Total 475 200 75 Balance -275 -200 -75 Weight 68.6 kg 59.5 kg Intake: IV 200 Cefepime 2 gm In Sodium 200 Chloride 0.9% 100 ml @ 25 mls/hr IVPB Q8HR [facility] Rx# :[id number] Output: Urine 475 200 75 Other: Voiding Method Urinal Urinal # Voids 1 1 ABP, PAP, CO, CI - Last Documented Arterial Blood Pressure 134/82 - Exam GENERAL DESCRIPTION: Middle-age male lying in bed in no distress RESPIRATORY SYSTEM: Unlabored breathing , decreased breath sounds at bases HEART: S1 S2 regular rate and rhythm , ABDOMEN: Soft , mild distention and tenderness EXTREMITIES: No edema feet - Labs CBC & Chem 7: 11/18/23 13:07 11/18/23 13:07 Labs: Abnormal Lab Results - Last 24 Hours (Table) 11/17/23 11/18/23 Range/Units 11:40 07:22 POC Glucose (mg/dL) 113 H 111 H (70-110) mg/dL Assessment and Plan (1) Fever Current Visit: Yes Status: Acute Code(s): R50.9 - FEVER, UNSPECIFIED SNOMED Code(s): 190368186 (2) Leukocytosis Current Visit: Yes Status: Acute Code(s): D72.829 - ELEVATED WHITE BLOOD CELL COUNT, UNSPECIFIED SNOMED Code(s): 705696708 (3) Pneumonia Current Visit: Yes Status: Acute Code(s): J18.9 - PNEUMONIA, UNSPECIFIED ORGANISM SNOMED Code(s): 478761676 (4) Alcoholic pancreatitis Current Visit: Yes Status: Acute Code(s): K85.20 - ALCOHOL INDUCED ACUTE PANCREATITIS WITHOUT NECROSIS OR INFCT SNOMED Code(s): 483375587 Plan: 1patient with low-grade fever in this patient with initial admission to the hospital for acute pancreatitis secondary to his alcoholism patient did get intubated because of respiratory distress and did have a positive sputum culture for MSSA on 10/26/2023 patient failed to be extubated and is s/p trach on 11/02/2023 and PEG tube on 11/06/2023 with the etiology of low-grade fever elevated white count is multifactorial question of pneumonia versus abdominal etiology and the patient was noted to have significant abdominal distention and apparently the patient did not have bowel movement for the last 5 to 6 days per the nursing staff 2-patient CT of abdominal pelvis with contrast, did not show any worsening pancreatitis pseudocyst or abscess mild cystitis and effusion 3-patient sputum is growing MSSA and Klebsiella 4-patient has shown clinical improvement currently covered with cefepime plan is for transition to oral antibiotic on discharge Dictation was produced using [employer] dictation software. please excuse any grammatical, word or spelling errors. Time with Patient: Less than 30
[2023-11-18 23:18] LABS: Glucose,Whole Blood 109 mg/dL (70-110)
--- NOTE | 2023-11-18 23:22 | P.PN ---
Subjective Patient seen and evaluated at bedside. Patient doing well, have some secretions this am. no other complaints. Objective - Vital Signs Vital signs: Vital Signs Temp 97.7 F 11/18/23 19:44 Pulse 80 11/18/23 21:05 Resp 20 11/18/23 19:44 BP 107/72 11/18/23 22:17 Pulse Ox 98 11/18/23 19:44 FiO2 35 11/18/23 21:05 Intake & Output 11/18/23 11/18/23 11/19/23 06:59 18:59 06:59 Intake Total 924 Output Total 200 625 Balance -200 299 Weight 59.5 kg Intake: IV 240 Sodium Chloride 0.9% 1, 240 000 ml @ 10 mls/hr IV . Q24H [facility] Rx#:[id number] Tube Feeding 564 Other 120 Output: Urine 200 625 Other: Voiding Method Urinal Urinal # Voids 1 ABP, PAP, CO, CI - Last Documented Arterial Blood Pressure 134/82 - Exam gen: nad cv: rrr pul: non labored breathing on 8L per respiratory abd: soft, non tender to palpation, no guarding or rebound tenderness, peg tube site c/d/i - Labs CBC & Chem 7: 11/18/23 13:07 11/18/23 13:07 Labs: Abnormal Lab Results - Last 24 Hours (Table) 11/18/23 11/18/23 11/18/23 Range/Units 07:22 13:07 13:07 WBC 10.8 H (3.8-10.6) k/uL RBC 3.33 L (4.30-5.90) m/uL Hgb 10.3 L (13.0-17.5) gm/dL Hct 31.9 L (39.0-53.0) % BUN 22 H (9-20) mg/dL Glucose 114 H (74-99) mg/dL POC Glucose (mg/dL) 111 H (70-110) mg/dL Plasma Lactic Acid Farrukh (0.7-2.0) mmol/L Total Protein 6.2 L (6.3-8.2) g/dL Albumin 3.1 L (3.5-5.0) g/dL 11/18/23 11/18/23 Range/Units 13:07 18:13 WBC (3.8-10.6) k/uL RBC (4.30-5.90) m/uL Hgb (13.0-17.5) gm/dL Hct (39.0-53.0) % BUN (9-20) mg/dL Glucose (74-99) mg/dL POC Glucose (mg/dL) 114 H (70-110) mg/dL Plasma Lactic Acid Farrukh 0.6 L (0.7-2.0) mmol/L Total Protein (6.3-8.2) g/dL Albumin (3.5-5.0) g/dL Assessment and Plan Assessment: 48 yo male s/p trach/peg -continue trach mask -continue tube feeds as tolerated -duonebs for secretions Time with Patient: Greater than 30
[2023-11-19] MEDS: traZODone HCL 50 MG TAB PO PRN (02:23)
[2023-11-19 05:09] LABS: Glucose,Whole Blood 116 mg/dL (70-110)
--- NOTE | 2023-11-19 11:51 | P.PN ---
Subjective Progress Note Date: 11/19/23 patient's tracheostomy site is clean. He'll continue receive supportive care. Objective - Vital Signs Vital signs: Vital Signs Temp 97.7 F 11/19/23 07:55 Pulse 78 11/19/23 11:24 Resp 18 11/19/23 07:55 BP 99/66 11/19/23 07:55 Pulse Ox 97 11/19/23 08:48 FiO2 35 11/19/23 08:48 Intake & Output 11/18/23 11/19/23 11/19/23 18:59 06:59 18:59 Intake Total 924 Output Total 625 400 250 Balance 299 -400 -250 Weight 63 kg Intake: IV 240 Sodium Chloride 0.9% 1, 240 000 ml @ 10 mls/hr IV . Q24H [facility] Rx#:[id number] Tube Feeding 564 Other 120 Output: Urine 625 400 250 Other: Voiding Method Urinal Urinal # Voids 1 ABP, PAP, CO, CI - Last Documented Arterial Blood Pressure 134/82 - Labs CBC & Chem 7: 11/18/23 13:07 11/18/23 13:07 Labs: Abnormal Lab Results - Last 24 Hours (Table) 11/18/23 11/18/23 11/18/23 Range/Units 13:07 13:07 13:07 WBC 10.8 H (3.8-10.6) k/uL RBC 3.33 L (4.30-5.90) m/uL Hgb 10.3 L (13.0-17.5) gm/dL Hct 31.9 L (39.0-53.0) % BUN 22 H (9-20) mg/dL Glucose 114 H (74-99) mg/dL POC Glucose (mg/dL) (70-110) mg/dL Plasma Lactic Acid Farrukh 0.6 L (0.7-2.0) mmol/L Total Protein 6.2 L (6.3-8.2) g/dL Albumin 3.1 L (3.5-5.0) g/dL 11/18/23 11/19/23 Range/Units 18:13 05:05 WBC (3.8-10.6) k/uL RBC (4.30-5.90) m/uL Hgb (13.0-17.5) gm/dL Hct (39.0-53.0) % BUN (9-20) mg/dL Glucose (74-99) mg/dL POC Glucose (mg/dL) 114 H 116 H (70-110) mg/dL Plasma Lactic Acid Farrukh (0.7-2.0) mmol/L Total Protein (6.3-8.2) g/dL Albumin (3.5-5.0) g/dL
[2023-11-19 11:53] LABS: Glucose,Whole Blood 130 mg/dL (70-110)
--- NOTE | 2023-11-19 14:57 | P.PN ---
Subjective Progress Note Date: 11/19/23 Principal diagnosis: Acute alcohol withdrawal 11/11/2023, the patient is being seen for a follow-up. The patient remains on a pressure support mode of mechanical ventilation with a pressure support of 7 and a PEEP of 5. Overnight, he was placed on Precedex and this morning and this is running at 0.3 mcg/kg/h. Otherwise, the patient is calm and comfortable and is not having any major respiratory distress. No significant orotracheal secretions. Enteral feeding is running at the rate of 10 cc an hour and the patient is currently on vital AF. No complaints. Amylase lipase levels are not elevated at this point. Distention. No fever this morning. Note that based on his yesterday's fever episode, the patient was placed on a broad-spectrum antibiotics and was started on vancomycin and cefepime. Repeat sputum Gram stain and culture still pending for now. Nevertheless, since then, the patient has been afebrile.. Hemodynamically stable without any significant hypotension. Blood work shows a WBC count of 7.8 with a hemoglobin 8.8 and a platelet count of 345 and electrolytes are all stable with a BUN of 14 and a creatinine of 0.6 and a sodium level of 137. Patient is on Seroquel 150 mg p.o. twice daily. The patient is also on BuSpar 30 mg p.o. twice daily. Ativan on as-needed basis. Precedex is being weaned off. 11/12/2023, patient is awake and alert. On and off he still requiring Precedex as the patient's agitation waxes and wanes. He is currently on Precedex at 0.7 mcg/kg/h and the patient is very much comfortable. Is currently on trach collar, FiO2 of 28%. Has been off the mechanical ventilator for the past 24 hours. Breathing is comfortable. No respiratory distress. No significant orotracheal secretions. Awaiting sputum Gram stain and culture and patient is currently covered with cefepime and vancomycin. He has afebrile for now. C ontinues to receive enteral feeding for nutritional support and the patient is currently on Nepro at rate of 20 cc an hour. He is also on Seroquel for agitation. He is on BuSpar. Librium will be also added as we are trying to wean this patient off Precedex. He is on Lovenox for DVT prophylaxis. Sitting Dilaudid on an as-needed basis. Adequate urine output. White cell count at 7.9 with a hemoglobin 11.2, BUN 16 with a creatinine of 0.6 and a sodium levels at 137. No abdominal distention. Tolerating diet which is in the form of Nepro, via PEG tube. No abdominal distention. Patient was evaluated today on 11/13/2023, patient remains in the ICU, he is on trach collar at 28% FiO2, patient seems to be calm, however he has his. Swelling in he becomes extremely agitated and restless, still requiring Precedex at 0.6 mcg/kg/h, he is also on Seroquel at 150 twice daily, Librium 50 mg 3 karla es daily and on Ativan as needed. Still not quite ready to be moved out of the ICU, patient is receiving Nepro at 47 cc/h via PEG tube, patient has a trach collar and is receiving 28% FiO2. Chest x-ray continues to show bibasilar infiltrates left more so than right, previously 6.4 hemoglobin 10.3 basic metabolic profile is normal renal profile is normal. Patient remains on cefepime, and his vancomycin was discontinued by Dr. Goddard and remains on GI DVT prophylaxis. Patient was read today on 11/14/2023, patient remains in the ICU, remains on trach collar, he is on Precedex otherwise he gets extremely agitated and restless, his Precedex is down to 0.3 mcg/kg/h. Patient is still receiving Nepro via PEG tube, patient seems to be calm today but according to the nurses he had episodes where he gets extremely agitated. Today I recommended changing his tracheostomy to a Shiley size 6, and this will be fenestrated, will discontinue his Bivona and in fact I went ahead and at bedside proceeded to exchanging the tracheostomy is, and now he has a size 6 Shiley fenestrated, we can now potentially cap the trach intermittently, and eventually consider decannulation. However considering the patient has and continues to have significant amount of purulent secretions, I will keep that in place for now. His chest x-ray is showing improvement in his bilateral interstitial infiltrate/edema. WBC count today is 8.7 hemoglobin is 11.2. Basic metabolic profile is normal and renal profile is normal Patient was seen and examined today on 11/15/2023, remains in the ICU, still requiring a low-dose of Precedex otherwise he gets extremely agitated, patient had his tracheostomy tube changed to a Shiley tube, feels much better now that you could have a speaking valve on discharge with tube/fenestrated tube and the patient could talk. Patient again has a speaking valve on the tube, and is wo rking fine. Remains on Precedex at 0.1 mcg/kg/h remains on Nepro via PEG tube, remains on antibiotics in the form of cefepime, patient had MSSA and Klebsiella in the sputum.WBC count is 9.7 hemoglobin 10.4 basic metabolic profile is normal Patient was reevaluated today on 11/16/2023, he is now off Precedex, patient was seen by psychiatry, and advised starting the patient on Prolixin, 5 mg p.o. pam ry 6 hours as needed. Advised cutting down on benzodiazepines. Patient actually is doing well today, comfortable, not in distress, continues to have significant secretions from the tracheostomy tube. Patient remains on antibiotic, and today I recommended that he goes back on Lasix.No chest x-ray was done today, however his chest x-ray from 11/11, has shown mild improvement in the acute pulmonary disease/CHF. In addition patient had what seemed to be a picture of aspiration pneumonia, steadily improving.WBC count today is 8.7 hemoglobin is 10 basic metabolic profile is normal and renal profile is normal Patient was reevaluated today on 11/17/2023, patient remains in the ICU, he is actually now an overflow. He was supposed to go to [address] but today I will make arrangements for the patient to go to a medical surgical floor, patient is doing well he is on trach collar/room air, continues to have lots of secretions being suctioned easily. Remains on cefepime, patient seems to be calm and not in any distress. Chest x-ray is showing significant improvement compared to previous x-rays, he has minimal patchy areas of atelectasis, doubt infiltrate mostly in the left lower lobe area WBC count is 8.7 hemoglobin is 10 basic metabolic profile is normal and renal profile is normal. Patient was evaluated today on 11/18/2023, patient is now on the regular medical floor, sitting in bed, does not seem to be in any distress, he seems to be a bit slow, calm, patient has a nasal cannula and he has a tracheostomy in site with a speaking valve. Patient is afebrile, he is saturating at 98%, again he is on a nasal cannula, blood pressure is stable, continues to have significant tracheal secretions. Chest x-ray yesterday showed minimal patchy infiltrates questionable pneumonia or atelectasis, patient remains on antibiotics as per ID on the case. Patient was reevaluated today on 11/19/2023, patient is basically the same, doing well, continues to have tracheostomy in place, continues to have some purulent secretions, patient is not in any distress, patient will definitely need some sort of rehab placement. Objective - Vital Signs Vital signs: Vital Signs Temp 98.7 F 11/19/23 12:59 Pulse 102 H 11/19/23 12:59 Resp 20 11/19/23 12:59 BP 93/60 11/19/23 12:59 Pulse Ox 97 11/19/23 12:59 FiO2 35 11/19/23 08:48 Intake & Output 11/18/23 11/19/23 11/19/23 18:59 06:59 18:59 Intake Total 924 Output Total 625 400 250 Balance 299 -400 -250 Weight 63 kg Intake: IV 240 Sodium Chloride 0.9% 1, 240 000 ml @ 10 mls/hr IV . Q24H [facility] Rx#:[id number] Tube Feeding 564 Other 120 Output: Urine 625 400 250 Other: Voiding Method Urinal Urinal Urinal # Voids 1 1 ABP, PAP, CO, CI - Last Documented Arterial Blood Pressure 134/82 - Exam GENERAL EXAM: Revealed 48-year-old white male, with tracheostomy, HEAD: Normocephalic and atraumatic EYES: Normal reaction of pupils, equal size. NOSE: Clear with pink turbinates. THROAT: No erythema or exudates. NECK: No masses, no JVD. CHEST: No chest wall deformity. Symmetrical chest wall expansion LUNGS: Minimal crackles bilaterally no rhonchi no wheezes Cardiac: Normal S1-S2, no S3 gallop. ABDOMEN: Soft nontender no megaly no rebound no guarding SKIN: No rashes CENTRAL NERVOUS SYSTEM: Patient is awake, seems to be oriented x 3, calm. EXTREMITIES: No clubbing edema or cyanosis - Labs CBC & Chem 7: 11/18/23 13:07 11/18/23 13:07 Labs: Abnormal Lab Results - Last 24 Hours (Table) 11/18/23 11/19/23 11/19/23 Range/Units 18:13 05:05 11:52 POC Glucose (mg/dL) 114 H 116 H 130 H (70-110) mg/dL Assessment and Plan Assessment: Impression: Acute hypoxic respiratory failure secondary to acute alcohol withdrawal and unable to protect his airways, required intubation mechanical ventilation on 10/26/2023, required tracheostomy on 11/01 and PEG tube placement on 11/05, tracheostomy changed to a Shiley tracheostomy on 11/13/fenestrated Shiley size 6 Acute alcohol withdrawal with acute alcohol intoxication, patient required a prolonged course of intubation and sedation because of his alcohol withdrawal. Acute pancreatitis, EtOH related. Resolved Abdominal pain, secondary to acute pancreatitis, resolved Acute kidney injury, resolved History of alcoholism Mild transaminitis History of coronary artery disease Current everyday smoker Hypertensive urgency, resolved Acute fever, currently under investigation, covered empirically with cefepime, however his vancomycin has been discontinued by Dr. Goddard. Recommendation: Continue tracheostomy care Evaluation for placement/rehab Continue nutritional support/enteral feeding patient has a PEG tube and receiving enteral feeding Continue GI prophylaxis Continue DVT prophylaxis Continue physical therapy Intermittent gentle diuresis Will continue to follow Time with Patient: Less than 30
[2023-11-19 17:16] LABS: Glucose,Whole Blood 104 mg/dL (70-110)
--- NOTE | 2023-11-19 19:57 | P.PN ---
Subjective Progress Note Date: 11/19/23 48-year-old white male with past medical history significant for hypertension, coronary artery disease, current everyday smoker, and alcohol abuse. He was transferred from [facility] 10/22/2023 for acute pancreatitis. He was noted to be intoxicated on arrival to outside facility, with an alcohol level of 34 mg/dL. He required ICU admission for Precedex infusion. He was also noted to have severely elevated lipase and amylase levels. An abdominal and pelvis CT was performed, which identified peripancreatic inflammatory stranding and fluid consistent with acute pancreatitis. No pseudoc yst, abscess, or pancreatic necrosis. No gallstones or ductal dilation. There was decreased attenuation of the hepatic parenchyma, suggestive of fatty infiltration. Patient was dehdydrated and noted to have sustained an WILFRIDO. It appears he was fluid resuscitated with 2 L of crystalloid fluid. He was then transferred to [facility]. CBC from yesterday: WBC count 7.6, hemoglobin 13.9, hematocrit 42, platelets 110. Most recent CMP from yesterday: Sodium 138, potassium 4.4, chloride 108, serum bicarb 19, BUN 18, creatinine 1.13, glucose 94. AST 97, ALT 74, ALP 156, total bilirubin 1. Lipase 11,329 and amylase 1468. Patient is currently lethargic and not making much sense when talking. Unsure of when last drink was. Precedex is infusing at 0.4 mcg/kg/h. He does have bilateral upper extremity soft restraints on, which likely can be discontinued. Blood pressure is noted to be hypertensive, has received a clonidine 0.2 mg patch, which is fallen off and will be replaced. EKG shows normal sinus rhythm without any obvious acute ischemic changes. Patient's pain appears well-managed with current regimen of as needed Dilaudid. He does have some facial grimacing with palpation of the bilateral upper abdomen. Normal saline is infusing at 150 MLS per hour. Currently on room air, in no acute respiratory distress. Afebrile. He has been moved to room 262 in the intensive care unit. -- Plan of care was discussed with patient's mother; reports she was told by family noticed that patient is now qualifying for hospice/palliative care -- Patient condition discussed in great detail; printing bindery assistant recommendations discussed with patient also; no plan to consult hospice or palliative care at this time 11/04/2023 Patient is seen and evaluated in room at bedside; discussed with nursing staff; no family members present in the room Patient remains on mechanical ventilator. He is on volume assist-control Blood gases show pO2 of 72, pCO2 47, pH is 7.41. Lab review shows white count 12.5, hemoglobin 9.9, hematocrit 30.3, and platelet count 357,000. Sodium 135, potassium 4.3, chlorides 102, CO2 28, BUN 19, creatinine 0.64. Glucose is 86. Phosphorus 4.7, calcium 9, magnesium 1.9. Sputum from October 25 shows evidence of Staphylococcus aureus. Chest x-ray shows bilateral small effusions, with adjacent atelectasis. -- Plan for PEG tube placement on 11/06/2023; and has been placed back on tube feeding -Intensive care service planning to wean off the fentanyl, patient has been placed on Dilaudid 1 mg every 4 hours -- Patient is status post tracheostomy; PEG tube placement rescheduled for Monday due to nonavailability of OR 11/05/2023 Patient is seen and evaluated in room at bedside; patient remains on mechanical ventilator. Settings include volume assist-control, rate 20, tidal volume 400, FiO2 50%, PEEP of 5. -- Blood gases show pO2 112, pCO2 45, pH is 7.46. The patient is getting lactated Ringer's at 20 cc an hour, propofol at 10 mcg/kg/min, and tube feedings with Nepro, at 10 cc an hour, with a goal of 19. - White count 14, hemoglobin 10.5, hematocrit 31.8, and platelet count 365,000. Sodium 137, potassium 3.7, chlorides 103, CO2 31, BUN 16, creatinine 0.69. Calcium is 9.2. Magnesium 1.9. Sputum from the was positive for Staphylococcus aureus. The patient has completed his antibiotics. Chest x-ray shows bilateral patchy infiltrates, which could be on the basis of fluid, and or pneumonia. 11/18/2023 --patient is seen and evaluated in room at bedside; remains in the ICU. Patient is doing well he is on trach collar/room air, continues to have lots of secretions being suctioned easily. Vital signs are reviewed and stable with temperature of 99.2, pulse 80, respirations 16 and blood pressure 122/91 -- Remains on cefepime, patient seems to be calm and not in any distress. Chest x-ray is showing significant improvement compared to previous x-rays, he has minimal patchy areas of atelectasis, doubt infiltrate mostly in the left lower lobe area WBC count is 8.7 hemoglobin is 10 basic metabolic profile is normal and renal profile is normal. Transfer patient to regular medical floor; intensive care team recommending to discontinue antibiotics shared services manager to see for placement 11/19/2023 Patient is seen and evaluated in room at bedside; discussed with nursing staff; no new complaints reported Vital signs are stable with temperature of 98.7, pulse 1 2, respiration 20, blood pressure 93/60 -- Patient is status post tracheostomy and PEG tube placement; continue with tracheostomy and PEG tube care -- PT OT in place; patient will likely need placement Objective - Vital Signs Vital signs: Vital Signs Temp 98.7 F 11/19/23 12:59 Pulse 102 H 11/19/23 12:59 Resp 20 11/19/23 12:59 BP 93/60 11/19/23 12:59 Pulse Ox 97 11/19/23 12:59 FiO2 35 11/19/23 08:48 Intake & Output 11/18/23 11/19/23 11/19/23 18:59 06:59 18:59 Intake Total 924 Output Total 625 400 250 Balance 299 -400 -250 Weight 63 kg Intake: IV 240 Sodium Chloride 0.9% 1, 240 000 ml @ 10 mls/hr IV . Q24H [facility] Rx#:[id number] Tube Feeding 564 Other 120 Output: Urine 625 400 250 Other: Voiding Method Urinal Urinal Urinal # Voids 1 1 ABP, PAP, CO, CI - Last Documented Arterial Blood Pressure 134/82 - Exam Patient is sedated, intubated and on mechanical ventilator.. HEENT: Normocephalic. Neck is supple. Pupils reactive. Nostrils clear. Oral cavity is moist. Neck reveals no JVD, carotid bruits, or thyromegaly. CHEST EXAMINATION: Trachea is central. Symmetrical expansion. Lung ghotra clear to auscultation and percussion. CARDIAC: Normal S1, S2 with no gallops. No murmurs ABDOMEN: Soft. Bowel sounds normal. No organomegaly. No abdominal bruits. Extremities: reveal no edema. No clubbing or cyanosis Neurologically sedated and intubated. No gross focal deficits noted Skin: No rash or skin lesions. Psychiatric: Could not be assessed at this time Musculoskeletal: No joint swelling or deformity. - Labs CBC & Chem 7: 11/18/23 13:07 11/18/23 13:07 Labs: Abnormal Lab Results - Last 24 Hours (Table) 11/18/23 11/19/23 11/19/23 Range/Units 18:13 05:05 11:52 POC Glucose (mg/dL) 114 H 116 H 130 H (70-110) mg/dL Assessment and Plan Assessment: Acute hypoxemic respiratory failure second alcohol withdrawal symptoms and DTs currently intubated and on mechanical ventilator since October 26, 2023 Acute alcohol withdrawal symptoms and DTs Uncontrolled hypertension. Improved now. Acute pancreatitis likely alcohol-related Acute kidney injury likely prerenal improved now. Severe alcohol abuse Mild transaminitis improved History of coronary disease Currently everyday smoker GI and DVT prophylaxis Plan: Patient is on mechanical ventilator. Continued on propofol and fentanyl drip was added. Cleviprex is off. Continue to titrate blood pressure medications. Continue with tube feedings. IV fluids to KVO.. Monitor urine output. Antibiotics have been discontinued. Daily weaning trials as per critical care team. General surgery was consulted for possible trach and PEG tube placement Continue to follow closely
[2023-11-19 23:55] LABS: Glucose,Whole Blood 92 mg/dL (70-110)
[2023-11-20 05:55] LABS: Glucose,Whole Blood 108 mg/dL (70-110)
[2023-11-20 12:28] LABS: Glucose,Whole Blood 105 mg/dL (70-110)
--- NOTE | 2023-11-20 13:06 | P.PN ---
Subjective Progress Note Date: 11/20/23 The patient is seen today November 20, 2023 in follow-up on the regular medical floor. The patient has been here for 28 days. He had alcohol withdrawal syndrome eventually requiring intubation and mechanical ventilatory support which was quite prolonged. He had a tracheostomy tube as well as a PEG tube placed. He is currently maintaining O2 saturations in the 90s on 35% trach collar. He is being nourished with Nepro at 47 MLS per hour which is his goal. The patient does have lKlebsiella pneumoniae and methicillin sensitive Staphylococcus aureus in his sputum. Blood cultures revealed no growth. Gl ucose 105. He remains on cefepime, bronchodilators. Remains on IV diuretics. Lovenox for DVT prophylaxis. Currently in a negative balance. Objective - Vital Signs Vital signs: Vital Signs Temp 97.7 F 11/20/23 12:25 Pulse 86 11/20/23 12:25 Resp 16 11/20/23 12:25 BP 116/81 11/20/23 12:25 Pulse Ox 98 11/20/23 12:25 FiO2 35 11/20/23 08:33 Intake & Output 11/19/23 11/20/23 11/20/23 18:59 06:59 18:59 Intake Total 784 Output Total 450 800 Balance -450 -16 Weight 66.5 kg Intake: Intake, IV Titration 100 Amount Cefepime 2 gm In Sodium 100 Chloride 0.9% 100 ml @ 25 mls/hr IVPB Q8HR [facility] Rx# :[id number] Tube Feeding 564 Other 120 Output: Urine 450 800 Other: Voiding Method Urinal Urinal Urinal # Voids 1 ABP, PAP, CO, CI - Last Documented Arterial Blood Pressure 134/82 - Exam GENERAL EXAM: Revealed a 48-year-old male, on 35% trach collar, in no acute distress HEAD: Normocephalic and atraumatic EYES: Normal reaction of pupils, equal size. NOSE: Clear with pink turbinates. THROAT: Tracheostomy tube secured in place. No erythema or exudates. NECK: No masses, no JVD. CHEST: No chest wall deformity. Symmetrical chest wall expansion LUNGS: Minimal crackles bilaterally no rhonchi no wheezes Cardiac: Normal S1-S2, no S3 gallop. ABDOMEN: Tube exit site clean and dry. Soft nontender no megaly no rebound no guarding SKIN: No rashes CENTRAL NERVOUS SYSTEM: Patient is awake, seems to be oriented x 3, calm. EXTREMITIES: No clubbing edema or cyanosis - Labs CBC & Chem 7: 11/18/23 13:07 11/18/23 13:07 Assessment and Plan Assessment: Acute hypoxic respiratory failure secondary to acute alcohol withdrawal and unable to protect his airways, required intubation mechanical ventilation on 10/08, required tracheostomy on 11/02/23 and PEG tube placement on 11/06/23, tracheostomy changed to a fenestrated Shiley size 6 tracheostomy on 11/14/23 Acute alcohol withdrawal with acute alcohol intoxication, patient required a prolonged course of intubation and sedation because of his alcohol withdrawal. Acute pancreatitis, EtOH related. Resolved Abdominal pain, secondary to acute pancreatitis, resolved Acute kidney injury, resolved History of alcoholism Mild transaminitis History of coronary artery disease Current everyday smoker Hypertensive urgency, resolved Acute fever, currently under investigation, covered empirically with cefepime Plan: The patient was seen and evaluated Labs and medications reviewed Remains on cefepime per ID service holder pile driving at the bedside On Lovenox for DVT prophylaxis Remains on IV diuretics Remains on bronchodilators Discharge planning in place for subacute versus inpatient rehabilitation I have personally seen and examined the patient, performed the documentation and the assessment and plan as written. Number of minutes spent on the visit: 10.
--- NOTE | 2023-11-20 14:06 | P.CONS ---
History of Present Illness - Reason for Consult Consult date: 11/20/23 Rehab Needs - Chief Complaint Decline in function - History of Present Illness PMR CONSULT Mr Franks is a 48yo male, uncertain support system or plan at discharge when medically stable. He was transferred from [facility] for alcohol intoxication and acute alcohol pancreatitis. He was seen at [facility] and had a CT of the abdomen pelvis. It reported peripancreatic inflammatory stranding and fluid consistent with acute pancreatitis. No pseudocyst abscess or pancreatic necrosis. Decreased attenuation of the hepatic parenchyma noted, suggestive of fatty infiltration. He was also noted to have elevated amylase and lipase. Patient EtOH level was 34. 11/04/2023 Patient remains on mechanical ventilator. He is on volume assist-control Blood gases show pO2 of 72, pCO2 47, pH is 7.41. Lab review shows white count 12.5, hemoglobin 9.9, hematocrit 30.3, and platelet count 357,000. Sodium 135, potassium 4.3, chlorides 102, CO2 28, BUN 19, creatinine 0.64. Glucose is 86. Phosphorus 4.7, calcium 9, magnesium 1.9. Sputum from October 25 shows evidence of Staphylococcus aureus. Chest x-ray shows bilateral small effusions, with adjacent atelectasis. -- Plan for PEG tube placement on 11/06/2023; and has been placed back on tube feeding -Intensive care service planning to wean off the fentanyl, patient has been placed on Dilaudid 1 mg every 4 hours -- Patient is status post tracheostomy; PEG tube placement rescheduled for due to nonavailability of OR 11/05/2023 Patientremains on mechanical ventilator. Settings include volume assist- control, rate 20, tidal volume 400, FiO2 50%, PEEP of 5. -- Blood gases show pO2 112, pCO2 45, pH is 7.46. The patient is getting lactated Ringer's at 20 cc an hour, propofol at 10 mcg/kg/min, and tube feedings with Nepro, at 10 cc an hour, with a goal of 19. - White count 14, hemoglobin 10.5, hematocrit 31.8, and platelet count 365,000. Sodium 137, potassium 3.7, chlorides 103, CO2 31, BUN 16, creatinine 0.69. Calcium is 9.2. Magnesium 1.9. Sputum from the 18th was positive for Staphylococcus aureus. The patient has completed his antibiotics. Chest x-ray shows bilateral patchy infiltrates, which could be on the basis of fluid, and or pneumonia. 11/18/2023 --patient is seen and evaluated in room at bedside; remains in the ICU. Patient is doing well he is on trach collar/room air, continues to have lots of secretions being suctioned easily. Vital signs are reviewed and stable with temperature of 99.2, pulse 80, respirations 16 and blood pressure 122/91 -- Remains on cefepime, patient seems to be calm and not in any distress. Chest x-ray is showing significant improvement compared to previous x-rays, he has minimal patchy areas of atelectasis, doubt infiltrate mostly in the left lower lobe area WBC count is 8.7 hemoglobin is 10 basic metabolic profile is normal and renal profile is normal. Transfer patient to regular medical floor; intensive care team recommending to discontinue antibiotics 11/19/2023 -- Patient is status post tracheostomy and PEG tube placement; continue with tracheostomy and PEG tube care -- PT OT in place; patient will likely need placement Patient was reevaluated today on 11/19/2023, patient is basically the same, doing well, continues to have tracheostomy in place, continues to have some purulent secretions, patient is not in any distress, patient will definitely need some sort of rehab placement. PMR consulted for rehab needs, possible IPR on 11/20/23. Patient opens his eyes, follows simple commands and then goes back to sleep. No PT/OT notes found. He does have a sitter at this time, noted to have fallen yesterday trying to get out of bed. Review of Systems Unable to assess as trached and minimally communicative. Past Medical History Past Medical History: Coronary Artery Disease (CAD), Hypertension History of Any Multi-Drug Resistant Organisms: None Reported Past Anesthesia/Blood Transfusion Reactions: Unable to Obtain Past Psychological History: Anxiety Smoking Status: Current every day smoker Past Alcohol Use History: Abuse Past Drug Use History: None Reported Medications and Allergies Home Medications Medication Instructions Recorded Confirmed Type Folic Acid 1 mg PO DAILY 10/23/23 10/23/23 History Metoprolol Succinate (ER) [Toprol 100 mg PO DAILY 10/23/23 10/23/23 History Xl] Pregabalin [Lyrica] 75 mg PO BID 10/23/23 10/23/23 History Rosuvastatin [Crestor] 10 mg PO DAILY 10/23/23 10/23/23 History Sertraline HCl [Zoloft] 50 mg PO DAILY 10/23/23 10/23/23 History Sertraline [Zoloft] 100 mg PO DAILY 10/23/23 10/23/23 History Verapamil HCl [Calan Sr] 240 mg PO DAILY 10/23/23 10/23/23 History Allergies Allergy/AdvReac Type Severity Reaction Status Date / Time No Known Allergies Allergy Verified 10/23/23 09:23 Physical Exam Vitals: Vital Signs Temp Pulse Pulse Resp BP BP Pulse Ox 11/20/23 12:25 97.7 F 86 16 116/81 98 11/20/23 12:23 88 11/20/23 12:07 84 11/20/23 08:45 80 11/20/23 08:33 96 11/20/23 08:29 76 11/20/23 06:28 97.5 F L 84 16 114/73 98 11/20/23 02:08 11/19/23 23:56 98.1 F 88 16 118/81 98 11/19/23 19:12 98 F 86 16 126/73 97 11/19/23 18:31 87 11/19/23 18:18 85 11/19/23 15:29 82 11/19/23 15:16 80 FiO2 11/20/23 12:25 11/20/23 12:23 11/20/23 12:07 11/20/23 08:45 11/20/23 08:33 35 11/20/23 08:29 11/20/23 06:28 11/20/23 02:08 35 11/19/23 23:56 11/19/23 19:12 11/19/23 18:31 11/19/23 18:18 11/19/23 15:29 11/19/23 15:16 Intake and Output 11/19/23 11/20/23 11/20/23 22:59 06:59 14:59 Intake Total 784 Output Total 400 600 Balance -400 184 Intake: Intake, IV Titration 100 Amount Cefepime 2 gm In Sodium 100 Chloride 0.9% 100 ml @ 25 mls/hr IVPB Q8HR [facility] Rx# :[id number] Tube Feeding 564 Other 120 Output: Urine 400 600 Other: Voiding Method Urinal Urinal Weight 66.5 kg GENERAL EXAM: NAD, lying in bed, opens eyes. HEENT: + tracheostomy CHEST: No chest wall deformity. Symmetrical chest wall expansion Cardiac: Regular rate ABDOMEN: Soft nontender, no rebound no guarding. + PEG SKIN: No rashes NEURO: Opens eyes, follows simple commands lifting arms and legs off table, but then closes eyes, minimally interactive thereafter EXTREMITIES: No clubbing edema or cyanosis, no LE edema Results CBC & Chem 7: 11/18/23 13:07 11/18/23 13:07 Assessment and Plan Assessment: Impression: # Decline in function # Acute hypoxemic respiratory failure second alcohol withdrawal symptoms and DTs currently intubated and on mechanical ventilator since October 26, 2023, required tracheostomy on 11/01 and PEG tube placement on 11/05, tracheostomy changed to a Shiley tracheostomy on 11/13 fenestrated Shiley size 6 # Acute alcohol withdrawal with acute alcohol intoxication, patient required a prolonged course of intubation and sedation because of his alcohol withdrawal. # Acute pancreatitis, EtOH related. Resolved # Abdominal pain, secondary to acute pancreatitis, resolved # Uncontrolled hypertension. Improved now. # Acute kidney injury likely prerenal improved now. # Mild transaminitis improved # History of coronary disease Recommendations: - per your medical management - continue PT/OT/SL as able Patient is too low functioning, inconsistent for IPR. At this time, more appropriate for LTAC or [facility].
--- NOTE | 2023-11-20 15:20 | P.PN ---
Subjective Progress Note Date: 11/20/23 CHIEF COMPLAINT: Abdominal pain HISTORY OF PRESENT ILLNESS: Patient status post PEG tube placement on 11/06/23. Patient is status post tracheostomy placement on 11/02/23. Patient is on a regular medical floor. PHYSICAL EXAM: VITAL SIGNS: Reviewed. GENERAL: no acute distress. Neck: trach site clean, dry and intact. ABDOMEN: Soft. Nondistended. Nontender. PEG tube site clean dry and intact ASSESSMENT: 1. Acute hypoxic respiratory failure due to alcohol withdraw syndrome 2. Severe protein calorie malnutrition 3. Acute alcoholic pancreatitis PLAN: -Continue tube feeds -Continue supportive care Physician Insole Rounder note has been reviewed by physician. Signing provider agrees with the documented findings, assessment, and plan of care. Greater than 60% of the total time spent in counseling and coordination of care Objective - Vital Signs Vital signs: Vital Signs Temp 97.7 F 11/20/23 12:25 Pulse 86 11/20/23 12:25 Resp 16 11/20/23 12:25 BP 116/81 11/20/23 12:25 Pulse Ox 98 11/20/23 12:25 FiO2 35 11/20/23 08:33 Intake & Output 11/19/23 11/20/23 11/20/23 18:59 06:59 18:59 Intake Total 784 Output Total 450 800 Balance -450 -16 Weight 66.5 kg Intake: Intake, IV Titration 100 Amount Cefepime 2 gm In Sodium 100 Chloride 0.9% 100 ml @ 25 mls/hr IVPB Q[facility]HR [facility] Rx# :[id number] Tube Feeding 564 Other 120 Output: Urine 450 800 Other: Voiding Method Urinal Urinal Urinal # Voids 1 ABP, PAP, CO, CI - Last Documented Arterial Blood Pressure 134/82 - Labs CBC & Chem 7: 11/18/23 13:07 11/18/23 13:07
[2023-11-20 16:33] VITALS: BMI 22.3
[2023-11-20 17:53] LABS: Glucose,Whole Blood 99 mg/dL (70-110)
--- NOTE | 2023-11-21 00:14 | P.PN ---
Subjective 48-year-old white male with past medical history significant for hypertension, coronary artery disease, current everyday smoker, and alcohol abuse. He was transferred from [facility] 10/22/2023 for acute pancreatitis. He was noted to be intoxicated on arrival to outside facility, with an alcohol level of 34 mg/dL. He required ICU admission for Precedex infusion. He was also noted to have severely elevated lipase and amylase levels. An abdominal and pelvis CT was performed, which identified peripancreatic inflammatory stranding and fluid consistent with acute pancreatitis. No pseudocyst, abscess, or pancreatic necrosis. No gallstones or ductal dilation. There was decreased attenuation of the hepatic parenchyma, suggestive of fatty infiltration. Patient was dehdydrated and noted to have sustained an WILFRIDO. It appears he was fluid resuscitated with 2 L of crystalloid fluid. He was then transferred to [facility]. CBC from yesterday: WBC count 7.6, hemoglobin 13.9, hematocrit 42, platelets 110. Most recent CMP from yesterday: Sodium 138, potassium 4.4, chloride 108, serum bicarb 19, BUN 18, creatinine 1.13, glucose 94. AST 97, ALT 74, ALP 156, total bilirubin 1. Lipase 11,329 and amylase 1468. Patient is currently lethargic and not making much sense when talking. Unsure of when last drink was. Precedex is infusing at 0.4 mcg/kg/h. He does have bilateral upper extremity soft restraints on, which likely can be discontinued. Blood pressure is noted to be hypertensive, has received a clonidine 0.2 mg patch, which is fallen off and will be replaced. EKG shows normal sinus rhythm without any obv ious acute ischemic changes. Patient's pain appears well-managed with current regimen of as needed Dilaudid. He does have some facial grimacing with palpation of the bilateral upper abdomen. Normal saline is infusing at 150 MLS per hour. Currently on room air, in no acute respiratory distress. Afebrile. He has been moved to room 262 in the intensive care unit. -- Plan of care was discussed with patient's mother; reports she was told by family noticed that patient is now qualifying for hospice/palliative care -- Patient condition discussed in great detail; dental associate recommendations disc ussed with patient also; no plan to consult hospice or palliative care at this time 11/04/2023 Patient is seen and evaluated in room at bedside; discussed with nursing staff; no family members present in the room Patient remains on mechanical ventilator. He is on volume assist-control Blood gases show pO2 of 72, pCO2 47, pH is 7.41. Lab review shows white count 12.5, hemoglobin 9.9, hematocrit 30.3, and platelet count 357,000. Sodium 135, potassium 4.3, chlorides 102, CO2 28, BUN 19, creatinine 0.64. Glucose is 86. Phosphorus 4.7, calcium 9, magnesium 1.9. Sputum from October 25 shows evidence of Staphylococcus aureus. Chest x-ray shows bilateral small effusions, with adjacent atelectasis. -- Plan for PEG tube placement on 11/06/2023; and has been placed back on tube feeding -Intensive care service planning to wean off the fentanyl, patient has been placed on Dilaudid 1 mg every 4 hours -- Patient is status post tracheostomy; PEG tube placement rescheduled for Monday due to nonavailability of OR 11/05/2023 Patient is seen and evaluated in room at bedside; patient remains on mechanical ventilator. Settings include volume assist-control, rate 20, tidal volume 400, FiO2 50%, PEEP of 5. -- Blood gases show pO2 112, pCO2 45, pH is 7.46. The patient is getting lactated Ringer's at 20 cc an hour, propofol at 10 mcg/kg/min, and tube feedings with Nepro, at 10 cc an hour, with a goal of 19. - White count 14, hemoglobin 10.5, hematocrit 31.8, and platelet count 365,000. Sodium 137, potassium 3.7, chlorides 103, CO2 31, BUN 16, creatinine 0.69. Calcium is 9.2. Magnesium 1.9. Sputum from the was positive for Staphylococcus aureus. The patient has completed his antibiotics. Chest x-ray shows bilateral patchy infiltrates, which could be on the basis of fluid, and or pneumonia. 11/18/2023 --patient is seen and evaluated in room at bedside; remains in the ICU. Patient is doing well he is on trach collar/room air, continues to have lots of secretions being suctioned easily. Vital signs are reviewed and stable with temperature of 99.2, pulse 80, re spirations 16 and blood pressure 122/91 -- Remains on cefepime, patient seems to be calm and not in any distress. Chest x-ray is showing significant improvement compared to previous x-rays, he has mi nimal patchy areas of atelectasis, doubt infiltrate mostly in the left lower lobe area WBC count is 8.7 hemoglobin is 10 basic metabolic profile is normal and renal profile is normal. Transfer patient to regular medical floor; intensive care team recommending to discontinue antibiotics environmental services supervisor to see for placement 11/19/2023 Patient is seen and evaluated in room at bedside; discussed with nursing staff; no new complaints reported Vital signs are stable with temperature of 98.7, pulse 1 2, respiration 20, blood pressure 93/60 -- Patient is status post tracheostomy and PEG tube placement; continue with tracheostomy and PEG tube care -- PT OT in place; patient will likely need placement 11/21/2023 Patient awake and alert Participating with physical therapy and follows command Patient s/p recommend PEG tube No new complaints Remains on cefepime for pneumonia Objective - Vital Signs Vital signs: Vital Signs Temp 97.7 F 11/20/23 12:25 Pulse 84 11/20/23 15:57 Resp 16 11/20/23 12:25 BP 99/62 11/20/23 15:57 Pulse Ox 97 11/20/23 15:57 FiO2 35 11/20/23 08:33 Intake & Output 11/19/23 11/20/23 11/20/23 18:59 06:59 18:59 Intake Total 784 Output Total 450 800 Balance -450 -16 Weight 66.5 kg 66.5 kg Intake: Intake, IV Titration 100 Amount Cefepime 2 gm In Sodium 100 Chloride 0.9% 100 ml @ 25 mls/hr IVPB Q[facility]HR [facility] Rx# :[id number] Tube Feeding 564 Other 120 Output: Urine 450 800 Other: Voiding Method Urinal Urinal Urinal # Voids 1 2 ABP, PAP, CO, CI - Last Documented Arterial Blood Pressure 134/82 - Labs CBC & Chem 7: 11/18/23 13:07 11/18/23 13:07
[2023-11-21 00:15] LABS: Glucose,Whole Blood 97 mg/dL (70-110)
[2023-11-21 05:50] LABS: Glucose,Whole Blood 116 mg/dL (70-110)
--- NOTE | 2023-11-21 11:52 | P.PN ---
Subjective Progress Note Date: 11/21/23 The patient is seen today November 20, 2023 in follow-up on the regular medical floor. The patient has been here for 28 days. He had alcohol withdrawal syndrome eventually requiring intubation and mechanical ventilatory support which was quite prolonged. He had a tracheostomy tube as well as a PEG tube placed. He is currently maintaining O2 saturations in the 90s on 35% trach collar. He is being nourished with Nepro at 47 MLS per hour which is his goal. The patient does have lKlebsiella pneumoniae and methicillin sensitive Staphylococcus aureus in his sputum. Blood cultures revealed no growth. Gl ucose 105. He remains on cefepime, bronchodilators. Remains on IV diuretics. Lovenox for DVT prophylaxis. Currently in a negative balance. The patient is seen today November 21, 2023 in follow-up on the regular medical floor. He is awake and alert in no acute distress. He is maintaining good O2 saturation in the mid 90s on 28% FiO2 via trach collar. Initial sputum culture was positive for MSSA and Klebsiella pneumoniae. Blood sugar 116. He remains on cefepime. Continued on bronchodilators. Lovenox for DVT prophylaxis. He is awaiting placement in either high skilled extended-care facility or long-term acute care facility. Objective - Vital Signs Vital signs: Vital Signs Temp 97.7 F 11/21/23 07:05 Pulse 82 11/21/23 11:38 Resp 16 11/21/23 07:05 BP 103/69 11/21/23 10:00 Pulse Ox 95 11/21/23 08:11 FiO2 28 11/21/23 08:11 Intake & Output 11/20/23 11/21/23 11/21/23 18:59 06:59 18:59 Weight 66.5 kg 65.5 kg Other: Voiding Method Urinal Urinal Urinal Incontinent Incontinent # Voids 2 2 ABP, PAP, CO, CI - Last Documented Arterial Blood Pressure 134/82 - Exam GENERAL EXAM: Revealed a 48-year-old male, sitting up in bed, on 28% trach collar, in no acute distress HEAD: Normocephalic and atraumatic EYES: Normal reaction of pupils, equal size. NOSE: Clear with pink turbinates. THROAT: Tracheostomy tube secured in place. No erythema or exudates. NECK: No masses, no JVD. CHEST: No chest wall deformity. Symmetrical chest wall expansion LUNGS: Minimal crackles bilaterally no rhonchi no wheezes Cardiac: Normal S1-S2, no S3 gallop. ABDOMEN: PEG tube exit site clean and dry. Soft nontender no megaly no rebound no guarding SKIN: No rashes CENTRAL NERVOUS SYSTEM: Patient is awake, seems to be oriented x 3, calm. EXTREMITIES: No clubbing edema or cyanosis - Labs CBC & Chem 7: 11/18/23 13:07 11/18/23 13:07 Labs: Abnormal Lab Results - Last 24 Hours (Table) 11/21/23 Range/Units 05:46 POC Glucose (mg/dL) 116 H (70-110) mg/dL Assessment and Plan Assessment: Acute hypoxic respiratory failure secondary to acute alcohol withdrawal and unable to protect his airways, required intubation mechanical ventilation on 10/08, required tracheostomy on 11/02/23 and PEG tube placement on 11/06/23, tracheostomy changed to a fenestrated Shiley size 6 tracheostomy on 11/14/23. Sputum culture was positive for Klebsiella pneumoniae and MSSA. Remains on cefepime Acute alcohol withdrawal with acute alcohol intoxication, patient required a prolonged course of intubation and sedation because of his alcohol withdrawal. Acute pancreatitis, EtOH related. Resolved Abdominal pain, secondary to acute pancreatitis, resolved Acute kidney injury, resolved History of alcoholism Mild transaminitis History of coronary artery disease Current everyday smoker Hypertensive urgency, resolved Plan: The patient was seen and evaluated Labs and medications reviewed Stable and on 28% FiO2 via trach collar Remains on cefepime per ID service outboard motor tester at the bedside On Lovenox for DVT prophylaxis Remains on bronchodilators Discharge planning in place This patient was seen independently by the pulmonary nurse practitioner addressing pulmonary issues I have personally seen and examined the patient, performed the documentation and the assessment and plan as written. Number of minutes spent on the visit: 24.
[2023-11-21 12:23] LABS: Glucose,Whole Blood 107 mg/dL (70-110)
--- NOTE | 2023-11-21 13:52 | P.PN ---
Progress Note - Text Progress Note Date: 11/21/23 Interval History: Patient was seen today for psychiatric follow up. Patient's nurse states that patient has been doing fairly well this morning, continues to require a sitter this morning. Patient appears to be less sedated today, more able to speak to rfp writer, was fairly concrete. He knew he was in a hospital, did not know where, he knew his first and last name. He thought it was November 17, 2023. Denies any depression or anxiety at this time. He did follow commands. He appears to be resting comfortably. He has been taking medications as prescribed. At this time he is denying any auditory or visual hallucinations, denying any suicidal homicidal ideations intent or plan. MENTAL STATUS EXAM: General Appearance: Patient appears to be thin, has a trach tube with a speaking valve, stated age is more awake today, patient appears to have fair hygiene and grooming wearing hospital gown Behavior: Patient is calmly lying in bed without any agitated behavior. Patient is more awake today, attempts to cooperate Speech: Speech is concrete, hesitant Mood/Affect: Claims that his mood is "okay" affect is constricted Suicidality/Homicidality: Denies Perceptions: Denies Though content/process: Not endorsing any delusions or paranoia at this time. Fairly concrete and poverty of content Memory and concentration: Alert and oriented x 3, follows more directions today, more awake Judgment and insight: poor, improving mildly IMPRESSIONS: continue with current assessment PLAN: -At this time patient DOES NOT meet criteria for inpatient psychiatric admission. -Delirium precautions recommended with patient including - avoiding use of narcotics and CROWN BUFFER sedatives, limit anticholinergic medications when possible, frequent re-orientation, minimize use of restraints, open window shades during the day and close them at night -Would recommend the following medication changes/additions: Please attempt to limit the use of benzodiazepines including Ativan and Xanax Valium and also steroids and antihistamine medications as this will precipitate and likely worsen patient's confusion and delirium. Decreased Seroquel to 25 mg daily +150 mg nightly for mood stabilization/psychosis/insomnia. Can consider titrating down Seroquel even further especially be morning dose if patient is doing well to prevent oversedation. Continue with BuSpar 30 mg twice daily for anxiety, continue tapering Librium dose with attempt to titrate off, reduced down to 10 mg qid. Prolixin IM or p.o. as needed for agitation/aggression. -Communicated plan to patient's nurse -At this time psychiatry will sign off. -Please contact with any questions.
--- NOTE | 2023-11-21 16:16 | P.PN ---
Subjective Progress Note Date: 11/21/23 CHIEF COMPLAINT: Abdominal pain HISTORY OF PRESENT ILLNESS: Patient status post PEG tube placement on 11/06/23. Patient is status post tracheostomy placement on 11/02/23. Patient is on a regular medical floor. No new complaints PHYSICAL EXAM: VITAL SIGNS: Reviewed. GENERAL: no acute distress. Neck: trach site clean, dry and intact. ABDOMEN: PEG tube site clean dry and intact ASSESSMENT: 1. Acute hypoxic respiratory failure due to alcohol withdraw syndrome 2. Severe protein calorie malnutrition 3. Acute alcoholic pancreatitis PLAN: -Continue tube feeds -Continue supportive care -Awaiting insurance authorization for LTAC placement Physician Iron Worker Foreman note has been reviewed by physician. Signing provider agrees with the documented findings, assessment, and plan of care. Greater than 60% of the total time spent in counseling and coordination of care Objective - Vital Signs Vital signs: Vital Signs Temp 97.7 F 11/21/23 12:25 Pulse 81 11/21/23 16:12 Resp 16 11/21/23 12:25 BP 94/66 11/21/23 12:25 Pulse Ox 95 11/21/23 12:25 FiO2 28 11/21/23 08:11 Intake & Output 11/20/23 11/21/23 11/21/23 18:59 06:59 18:59 Output Total 450 Balance -450 Weight 66.5 kg 65.5 kg Output: Urine 450 Other: Voiding Method Urinal Urinal Urinal Incontinent Incontinent # Voids 2 2 ABP, PAP, CO, CI - Last Documented Arterial Blood Pressure 134/82 - Labs CBC & Chem 7: 11/18/23 13:07 11/18/23 13:07 Labs: Abnormal Lab Results - Last 24 Hours (Table) 11/21/23 Range/Units 05:46 POC Glucose (mg/dL) 116 H (70-110) mg/dL
--- NOTE | 2023-11-21 16:53 | P.PN ---
Subjective Progress Note Date: 11/19/23 Principal diagnosis: Reason for follow-up is fever/leukocytosis/pneumonia Patient is a 48-year-old male with a past medical history significant for hypertension coronary disease anxiety current everyday smoker presenting to the hospital more than 2 weeks ago for evaluation of abdominal pain, has been diagnosed and treated for acute pancreatitis secondary to chronic alcohol patient failed to be extubated and got trach and PEG has been running a low- grade fever prompting this consultation. On today's evaluation that is 11/19/2023, Patient is afebrile patient is cur rently on 8 L trach collar oxygen and is breathing comfortably patient seem to be sleepy lethargic did not Question no vomiting or diarrhea reported by the nursing staff Patient did have a white count of 10.8 as of yesterday creatinine 0.86 no lab draw today Objective - Vital Signs Vital signs: Vital Signs Temp 97.7 F 11/19/23 07:55 Pulse 78 11/19/23 11:24 Resp 18 11/19/23 07:55 BP 99/66 11/19/23 07:55 Pulse Ox 97 11/19/23 08:48 FiO2 35 11/19/23 08:48 Intake & Output 11/18/23 11/19/23 11/19/23 18:59 06:59 18:59 Intake Total 924 Output Total 625 400 250 Balance 299 -400 -250 Weight 63 kg Intake: IV 240 Sodium Chloride 0.9% 1, 240 000 ml @ 10 mls/hr IV . Q24H [facility] Rx#:[id number] Tube Feeding 564 Other 120 Output: Urine 625 400 250 Other: Voiding Method Urinal Urinal # Voids 1 ABP, PAP, CO, CI - Last Documented Arterial Blood Pressure 134/82 - Exam GENERAL DESCRIPTION: Middle-age male lying in bed in no distress RESPIRATORY SYSTEM: Unlabored breathing , decreased breath sounds at bases HEART: S1 S2 regular rate and rhythm , ABDOMEN: Soft , mild distention and tenderness EXTREMITIES: No edema feet - Labs CBC & Chem 7: 11/18/23 13:07 11/18/23 13:07 Labs: Abnormal Lab Results - Last 24 Hours (Table) 11/18/23 11/18/23 11/18/23 Range/Units 13:07 13:07 13:07 WBC 10.8 H (3.8-10.6) k/uL RBC 3.33 L (4.30-5.90) m/uL Hgb 10.3 L (13.0-17.5) gm/dL Hct 31.9 L (39.0-53.0) % BUN 22 H (9-20) mg/dL Glucose 114 H (74-99) mg/dL POC Glucose (mg/dL) (70-110) mg/dL Plasma Lactic Acid Farrukh 0.6 L (0.7-2.0) mmol/L Total Protein 6.2 L (6.3-8.2) g/dL Albumin 3.1 L (3.5-5.0) g/dL 11/18/23 11/19/23 Range/Units 18:13 05:05 WBC (3.8-10.6) k/uL RBC (4.30-5.90) m/uL Hgb (13.0-17.5) gm/dL Hct (39.0-53.0) % BUN (9-20) mg/dL Glucose (74-99) mg/dL POC Glucose (mg/dL) 114 H 116 H (70-110) mg/dL Plasma Lactic Acid Farrukh (0.7-2.0) mmol/L Total Protein (6.3-8.2) g/dL Albumin (3.5-5.0) g/dL Assessment and Plan (1) Fever Current Visit: Yes Status: Acute Code(s): R50.9 - FEVER, UNSPECIFIED SNOMED Code(s): 633854329 (2) Leukocytosis Current Visit: Yes Status: Acute Code(s): D72.829 - ELEVATED WHITE BLOOD CELL COUNT, UNSPECIFIED SNOMED Code(s): 966708269 (3) Pneumonia Current Visit: Yes Status: Acute Code(s): J18.9 - PNEUMONIA, UNSPECIFIED ORGANISM SNOMED Code(s): 329053693 (4) Alcoholic pancreatitis Current Visit: Yes Status: Acute Code(s): K85.20 - ALCOHOL INDUCED ACUTE PANCREATITIS WITHOUT NECROSIS OR INFCT SNOMED Code(s): 498255750 Plan: 1patient with low-grade fever in this patient with initial admission to the hospital for acute pancreatitis secondary to his alcoholism patient did get intubated because of respiratory distress and did have a positive sputum culture for MSSA on 10/26/2023 patient failed to be extubated and is s/p trach on 11/02/2023 and PEG tube on 11/06/2023 with the etiology of low-grade fever elevated white count is multifactorial question of pneumonia versus abdominal etiology and the patient was noted to have significant abdominal distention and apparently the patient did not have bowel movement for the last 5 to 6 days per the nursing staff 2-patient CT of abdominal pelvis with contrast, did not show any worsening pancreatitis pseudocyst or abscess mild cystitis and effusion 3-patient sputum is growing MSSA and Klebsiella 4-patient has shown clinical improvement and to continue cefepime to finish a 10-day course of therapy Dictation was produced using [employer] dictation software. please excuse any grammatical, word or spelling errors.
--- NOTE | 2023-11-21 16:54 | P.PN ---
Subjective Progress Note Date: 11/20/23 Principal diagnosis: Reason for follow-up is fever/leukocytosis/pneumonia Patient is a 48-year-old male with a past medical history significant for hypertension coronary disease anxiety current everyday smoker presenting to the hospital more than 2 weeks ago for evaluation of abdominal pain, has been diagnosed and treated for acute pancreatitis secondary to chronic alcohol patient failed to be extubated and got trach and PEG has been running a low- grade fever prompting this consultation. On today's evaluation that is 11/20/2023, patient has been afebrile, patient is breathing comfortably and is currently on 8 L trach collar and this patient does not seem to be distressed normal diarrhea with change reported by the nursing staff patient did not answer any question No lab draw today Objective - Vital Signs Vital signs: Vital Signs Temp 97.5 F L 11/20/23 06:28 Pulse 88 11/20/23 12:23 Resp 16 11/20/23 06:28 BP 114/73 11/20/23 06:28 Pulse Ox 96 11/20/23 08:33 FiO2 35 11/20/23 08:33 Intake & Output 11/19/23 11/20/23 11/20/23 18:59 06:59 18:59 Intake Total 784 Output Total 450 800 Balance -450 -16 Weight 66.5 kg Intake: Intake, IV Titration 100 Amount Cefepime 2 gm In Sodium 100 Chloride 0.9% 100 ml @ 25 mls/hr IVPB Q8HR [facility] Rx# :[id number] Tube Feeding 564 Other 120 Output: Urine 450 800 Other: Voiding Method Urinal Urinal Urinal # Voids 1 ABP, PAP, CO, CI - Last Documented Arterial Blood Pressure 134/82 - Exam GENERAL DESCRIPTION: Middle-age male lying in bed in no distress RESPIRATORY SYSTEM: Unlabored breathing , decreased breath sounds at bases HEART: S1 S2 regular rate and rhythm , ABDOMEN: Soft , mild distention and tenderness EXTREMITIES: No edema feet - Labs CBC & Chem 7: 11/18/23 13:07 11/18/23 13:07 Assessment and Plan (1) Fever Current Visit: Yes Status: Acute Code(s): R50.9 - FEVER, UNSPECIFIED SNOMED Code(s): 210405571 (2) Leukocytosis Current Visit: Yes Status: Acute Code(s): D72.829 - ELEVATED WHITE BLOOD CELL COUNT, UNSPECIFIED SNOMED Code(s): 634687064 (3) Pneumonia Current Visit: Yes Status: Acute Code(s): J18.9 - PNEUMONIA, UNSPECIFIED ORGANISM SNOMED Code(s): 784407991 (4) Alcoholic pancreatitis Current Visit: Yes Status: Acute Code(s): K85.20 - ALCOHOL INDUCED ACUTE PA NCREATITIS WITHOUT NECROSIS OR INFCT SNOMED Code(s): 280114200 Plan: 1patient with low-grade fever in this patient with initial admission to the hospital for acute pancreatitis secondary to his alcoholism patient did get intubated because of respiratory distress and did have a positive sputum culture for MSSA on 10/26/2023 patient failed to be extubated and is s/p trach on 11/02/2023 and PEG tube on 11/06/2023 with the etiology of low-grade fever elevated white count is multifactorial question of pneumonia versus abdominal etiology and the patient was noted to have significant abdominal distention and apparently the patient did not have bowel movement for the last 5 to 6 days per the nursing staff 2-patient CT of abdominal pelvis with contrast, did not show any worsening pancreatitis pseudocyst or abscess mild cystitis and effusion 3-patient sputum is growing MSSA and Klebsiella 4-patient did have resolution of his fever white count normalized currently on cefepime to discontinue after 10-day course Dictation was produced using [employer] dictation software. please excuse any grammatical, word or spelling errors. Time with Patient: Less than 30
--- NOTE | 2023-11-21 16:54 | P.PN ---
Subjective Progress Note Date: 11/21/23 Principal diagnosis: Reason for follow-up is fever/leukocytosis/pneumonia Patient is a 48-year-old male with a past medical history significant for hypertension coronary disease anxiety current everyday smoker presenting to the hospital more than 2 weeks ago for evaluation of abdominal pain, has been diagnosed and treated for acute pancreatitis secondary to chronic alcohol patient failed to be extubated and got trach and PEG has been running a low- grade fever prompting this consultation. On today's evaluation that is 11/21/2023,the patient denies any fever or any chills, patient is breathing comfortably on 8 L trach collar and the patient does not seem to be any distress patient has received some sedation because of his agitation per the sitter at the bedside no vomiting or diarrhea has been reported Patient did not have any lab draw today Objective - Vital Signs Vital signs: Vital Signs Temp 97.7 F 11/21/23 12:25 Pulse 97 11/21/23 16:47 Resp 16 11/21/23 12:25 BP 102/70 11/21/23 16:47 Pulse Ox 95 11/21/23 12:25 FiO2 28 11/21/23 08:11 Intake & Output 11/20/23 11/21/23 11/21/23 18:59 06:59 18:59 Output Total 450 Balance -450 Weight 66.5 kg 65.5 kg Output: Urine 450 Other: Voiding Method Urinal Urinal Urinal Incontinent Incontinent # Voids 2 2 ABP, PAP, CO, CI - Last Documented Arterial Blood Pressure 134/82 - Exam GENERAL DESCRIPTION: Middle-age male lying in bed in no distress RESPIRATORY SYSTEM: Unlabored breathing , decreased breath sounds at bases HEART: S1 S2 regular rate and rhythm , ABDOMEN: Soft , mild distention and tenderness EXTREMITIES: No edema feet - Labs CBC & Chem 7: 11/18/23 13:07 11/18/23 13:07 Labs: Abnormal Lab Results - Last 24 Hours (Table) 11/21/23 Range/Units 05:46 POC Glucose (mg/dL) 116 H (70-110) mg/dL Assessment and Plan (1) Fever Current Visit: Yes Status: Acute Code(s): R50.9 - FEVER, UNSPECIFIED SNOMED Code(s): 888667874 (2) Leukocytosis Current Visit: Yes Status: Acute Code(s): D72.829 - ELEVATED WHITE BLOOD CELL COUNT, UNSPECIFIED SNOMED Code(s): 766573263 (3) Pneumonia Current Visit: Yes Status: Acute Code(s): J18.9 - PNEUMONIA, UNSPECIFIED ORGANISM SNOMED Code(s): 309554223 (4) Alcoholic pancreatitis Current Visit: Yes Status: Acute Code(s): K85.20 - ALCOHOL INDUCED ACUTE PANCREATITIS WITHOUT NECROSIS OR INFCT SNOMED Code(s): 962682914 Plan: 1patient with low-grade fever in this patient with initial admission to the hospital for acute pancreatitis secondary to his alcoholism patient did get intubated because of respiratory distress and did have a positive sputum culture for MSSA on 10/26/2023 patient failed to be extubated and is s/p trach on 11/02/2023 and PEG tube on 11/06/2023 with the etiology of low-grade fever elevated white count is multifactorial question of pneumonia versus abdominal etiology and the patient was noted to have significant abdominal distention and apparently the patient did not have bowel movement for the last 5 to 6 days per the nursing staff 2-patient CT of abdominal pelvis with contrast, did not show any worsening pancreatitis pseudocyst or abscess mild cystitis and effusion 3-patient sputum is growing MSSA and Klebsiella 4-patient did have resolution of his fever white count normalized patient has received about 10 days of cefepime should be more than enough we will go ahead and discontinue cefepime and monitor the patient off antibiotic therapy Dictation was produced using [employer] dictation software. please excuse any grammatical, word or spelling errors. Time with Patient: Less than 30
[2023-11-21 17:48] LABS: Glucose,Whole Blood 114 mg/dL (70-110)
[2023-11-21 23:51] LABS: Glucose,Whole Blood 109 mg/dL (70-110)
--- NOTE | 2023-11-22 00:07 | P.PN ---
Subjective 48-year-old white male with past medical history significant for hypertension, coronary artery disease, current everyday smoker, and alcohol abuse. He was transferred from [facility] 10/22/2023 for acute pancreatitis. He was noted to be intoxicated on arrival to outside facility, with an alcohol level of 34 mg/dL. He required ICU admission for Precedex infusion. He was also noted to have severely elevated lipase and amylase levels. An abdominal and pelvis CT was performed, which identified peripancreatic inflammatory stranding and fluid consistent with acute pancreatitis. No pseudocyst, abscess, or pancreatic necrosis. No gallstones or ductal dilation. There was decreased attenuation of the hepatic parenchyma, suggestive of fatty infiltration. Patient was dehdydrated and noted to have sustained an WILFRIDO. It appears he was fluid resuscitated with 2 L of crystalloid fluid. He was then transferred to [facility]. CBC from yesterday: WBC count 7.6, hemoglobin 13.9, hematocrit 42, platelets 110. Most recent CMP from yesterday: Sodium 138, potassium 4.4, chloride 108, serum bicarb 19, BUN 18, creatinine 1.13, glucose 94. AST 97, ALT 74, ALP 156, total bilirubin 1. Lipase 11,329 and amylase 1468. Patient is currently lethargic and not making much sense when talking. Unsure of when last drink was. Precedex is infusing at 0.4 mcg/kg/h. He does have bilateral upper extremity soft restraints on, which likely can be discontinued. Blood pressure is noted to be hypertensive, has received a clonidine 0.2 mg patch, which is fallen off and will be replaced. EKG shows normal sinus rhythm without any obv ious acute ischemic changes. Patient's pain appears well-managed with current regimen of as needed Dilaudid. He does have some facial grimacing with palpation of the bilateral upper abdomen. Normal saline is infusing at 150 MLS per hour. Currently on room air, in no acute respiratory distress. Afebrile. He has been moved to room 262 in the intensive care unit. -- Plan of care was discussed with patient's mother; reports she was told by family noticed that patient is now qualifying for hospice/palliative care -- Patient condition discussed in great detail; apparel merchandiser recommendations disc ussed with patient also; no plan to consult hospice or palliative care at this time 11/04/2023 Patient is seen and evaluated in room at bedside; discussed with nursing staff; no family members present in the room Patient remains on mechanical ventilator. He is on volume assist-control Blood gases show pO2 of 72, pCO2 47, pH is 7.41. Lab review shows white count 12.5, hemoglobin 9.9, hematocrit 30.3, and platelet count 357,000. Sodium 135, potassium 4.3, chlorides 102, CO2 28, BUN 19, creatinine 0.64. Glucose is 86. Phosphorus 4.7, calcium 9, magnesium 1.9. Sputum from October 25 shows evidence of Staphylococcus aureus. Chest x-ray shows bilateral small effusions, with adjacent atelectasis. -- Plan for PEG tube placement on 11/06/2023; and has been placed back on tube feeding -Intensive care service planning to wean off the fentanyl, patient has been placed on Dilaudid 1 mg every 4 hours -- Patient is status post tracheostomy; PEG tube placement rescheduled for Monday due to nonavailability of OR 11/05/2023 Patient is seen and evaluated in room at bedside; patient remains on mechanical ventilator. Settings include volume assist-control, rate 20, tidal volume 400, FiO2 50%, PEEP of 5. -- Blood gases show pO2 112, pCO2 45, pH is 7.46. The patient is getting lactated Ringer's at 20 cc an hour, propofol at 10 mcg/kg/min, and tube feedings with Nepro, at 10 cc an hour, with a goal of 19. - White count 14, hemoglobin 10.5, hematocrit 31.8, and platelet count 365,000. Sodium 137, potassium 3.7, chlorides 103, CO2 31, BUN 16, creatinine 0.69. Calcium is 9.2. Magnesium 1.9. Sputum from the was positive for Staphylococcus aureus. The patient has completed his antibiotics. Chest x-ray shows bilateral patchy infiltrates, which could be on the basis of fluid, and or pneumonia. 11/18/2023 --patient is seen and evaluated in room at bedside; remains in the ICU. Patient is doing well he is on trach collar/room air, continues to have lots of secretions being suctioned easily. Vital signs are reviewed and stable with temperature of 99.2, pulse 80, re spirations 16 and blood pressure 122/91 -- Remains on cefepime, patient seems to be calm and not in any distress. Chest x-ray is showing significant improvement compared to previous x-rays, he has mi nimal patchy areas of atelectasis, doubt infiltrate mostly in the left lower lobe area WBC count is 8.7 hemoglobin is 10 basic metabolic profile is normal and renal profile is normal. Transfer patient to regular medical floor; intensive care team recommending to discontinue antibiotics financial services sales representative to see for placement 11/19/2023 Patient is seen and evaluated in room at bedside; discussed with nursing staff; no new complaints reported Vital signs are stable with temperature of 98.7, pulse 1 2, respiration 20, blood pressure 93/60 -- Patient is status post tracheostomy and PEG tube placement; continue with tracheostomy and PEG tube care -- PT OT in place; patient will likely need placement 11/21/2023 Patient awake and alert Participating with physical therapy and follows command Patient s/p recommend PEG tube Ncefepime for pneumonia. However it was discontinued today. Will going to monitor while off antibiotic Patient on multiple psych medication being tapered off Librium 20 mg 3 times daily down to 10 mg 4 times daily. With the psychiatrist recommend to taper it of Decrease dose of Seroquel 25 mg from 50 mg. Continue the Prolixin as needed for agitation Sitter at bedside Objective - Vital Signs Vital signs: Vital Signs Temp 97.7 F 11/21/23 12:25 Pulse 82 11/21/23 12:25 Resp 16 11/21/23 12:25 BP 94/66 11/21/23 12:25 Pulse Ox 95 11/21/23 12:25 FiO2 28 11/21/23 08:11 Intake & Output 11/20/23 11/21/23 11/21/23 18:59 06:59 18:59 Output Total 450 Balance -450 Weight 66.5 kg 65.5 kg Output: Urine 450 Other: Voiding Method Urinal Urinal Urinal Incontinent Incontinent # Voids 2 2 ABP, PAP, CO, CI - Last Documented Arterial Blood Pressure 134/82 - Exam -GENERAL: The patient is drowsy, follow commands HEENT: Pupils are round and equally reacting to light. EOMI. No scleral icterus. No conjunctival pallor. Normocephalic, atraumatic. No pharyngeal erythema. No thyromegaly. CARDIOVASCULAR: S1 and S2 present. No murmurs, rubs, or gallops. -PULMONARY: Chest is clear to auscultation, no wheezing , no crackles. Tracheostomy tube in place -ABDOMEN: Soft, nontender, nondistended, normoactive bowel sounds. No palpable organomegaly. PEG tube in place MUSCULOSKELETAL: No joint swelling or deformity. EXTREMITIES: No cyanosis, clubbing, or pedal edema. NEUROLOGICAL: Gross neurological examination did not reveal any focal deficits. SKIN: No rashes. no petechiae. - Labs CBC & Chem 7: 11/18/23 13:07 11/18/23 13:07 Labs: Abnormal Lab Results - Last 24 Hours (Table) 11/21/23 Range/Units 05:46 POC Glucose (mg/dL) 116 H (70-110) mg/dL Assessment and Plan Assessment: Altered mental status secondary to metabolic/toxic encephalopathy Acute hypoxemic respiratory failure second alcohol withdrawal symptoms and DTs currently intubated and on mechanical ventilator since October 26, 2023 Acute alcohol withdrawal symptoms and DTs Uncontrolled hypertension. Improved now. Acute pancreatitis likely alcohol-related Acute kidney injury likely prerenal improved now. Severe alcohol abuse Mild transaminitis improved History of coronary disease Currently everyday smoker Plan: cefepime was discontinued per ID team and keep monitoring while off antibiotic Continue with Librium and other psych medication. Taper dose of Librium per psychiatrist.. Seroquel dose lowered to 50 down to 25 mg Continue with Protonix Several consultants on the case ID, pulmonary, psychiatry and general surgery Labs and medication were reviewed.. Continue same treatment. Continue with symptomatic treatment. Resume home medication. Monitor labs and vitals. DVT and GI prophylaxis. Further recommendations as per clinical course of the patient DVT prophylaxis: Subcutaneous Lovenox GI Prophylaxis: Ppi Prognosis is guarded Possible discharge in 24 to 48 hours if he keeps improving
[2023-11-22 05:54] LABS: Glucose,Whole Blood 88 mg/dL (70-110)
[2023-11-22] MEDS: QUEtiapine 25 MG TAB PO SCH (09:22)
--- NOTE | 2023-11-22 11:28 | P.PN ---
Subjective Progress Note Date: 11/22/23 The patient is seen today November 20, 2023 in follow-up on the regular medical floor. The patient has been here for 28 days. He had alcohol withdrawal syndrome eventually requiring intubation and mechanical ventilatory support which was quite prolonged. He had a tracheostomy tube as well as a PEG tube placed. He is currently maintaining O2 saturations in the 90s on 35% trach collar. He is being nourished with Nepro at 47 MLS per hour which is his goal. The patient does have lKlebsiella pneumoniae and methicillin sensitive Staphylococcus aureus in his sputum. Blood cultures revealed no growth. Gl ucose 105. He remains on cefepime, bronchodilators. Remains on IV diuretics. Lovenox for DVT prophylaxis. Currently in a negative balance. The patient is seen today November 21, 2023 in follow-up on the regular medical floor. He is awake and alert in no acute distress. He is maintaining good O2 saturation in the mid 90s on 28% FiO2 via trach collar. Initial sputum culture was positive for MSSA and Klebsiella pneumoniae. Blood sugar 116. He remains on cefepime. Continued on bronchodilators. Lovenox for DVT prophylaxis. He is awaiting placement in either high skilled extended-care facility or long-term acute care facility. The patient is seen today November 22, 2023 in follow-up on the regular medical floor. He is sitting up in bed. Awake and alert in no acute distress. He is maintaining O2 saturations in the 90s on 28% trach collar. He has normal saline at 20 MLS per hour. He is being nourished with Nepro at 47 mL/h. He remains on bronchodilators. Lovenox for DVT prophylaxis. Objective - Vital Signs Vital signs: Vital Signs Temp 97.3 F L 11/22/23 07:45 Pulse 87 11/22/23 08:33 Resp 17 11/22/23 07:45 BP 145/94 11/22/23 07:45 Pulse Ox 97 11/22/23 08:21 FiO2 28 11/22/23 08:21 Intake & Output 11/21/23 11/22/23 11/22/23 18:59 06:59 18:59 Intake Total 894 Output Total 950 Balance -950 894 Weight 64.5 kg Intake: IV 240 Sodium Chloride 0.9% 1, 240 000 ml @ 10 mls/hr IV . Q24H [facility] Rx#:[id number] Tube Feeding 564 Other 90 Output: Urine 950 Other: Voiding Method Urinal Urinal Urinal Incontinent Diaper Diaper Incontinent Incontinent # Voids 1 ABP, PAP, CO, CI - Last Documented Arterial Blood Pressure 134/82 - Exam GENERAL EXAM: Revealed a 48-year-old male, awake, alert, on 28% trach collar, in no acute distress HEAD: Normocephalic and atraumatic EYES: Normal reaction of pupils, equal size. NOSE: Clear with pink turbinates. THROAT: Tracheostomy tube secured in place. No erythema or exudates. NECK: No masses, no JVD. CHEST: No chest wall deformity. Symmetrical chest wall expansion LUNGS: Minimal crackles bilaterally no rhonchi no wheezes Cardiac: Normal S1-S2, no S3 gallop. ABDOMEN: PEG tube exit site clean and dry. Soft nontender no megaly no rebound no guarding SKIN: No rashes CENTRAL NERVOUS SYSTEM: Patient is awake, seems to be oriented x 3, calm. EXTREMITIES: No clubbing edema or cyanosis - Labs CBC & Chem 7: 11/18/23 13:07 11/18/23 13:07 Labs: Abnormal Lab Results - Last 24 Hours (Table) 11/21/23 Range/Units 17:46 POC Glucose (mg/dL) 114 H (70-110) mg/dL Assessment and Plan Assessment: Acute hypoxic respiratory failure secondary to acute alcohol withdrawal and unable to protect his airways, required intubation mechanical ventilation on 10/26/2023, required tracheostomy on 11/02/23 and PEG tube placement on 11/06/23, tracheostomy changed to a fenestrated Shiley size 6 tracheostomy on 11/14/23. Sputum culture was positive for Klebsiella pneumoniae and MSSA. Completed cefepime Acute alcohol withdrawal with acute alcohol intoxication, patient required a prolonged course of intubation and sedation because of his alcohol withdrawal. Acute pancreatitis, EtOH related. Resolved Abdominal pain, secondary to acute pancreatitis, resolved Acute kidney injury, resolved History of alcoholism Mild transaminitis History of coronary artery disease Current everyday smoker Hypertensive urgency, resolved Plan: The patient was seen and evaluated Medications reviewed Stable and on 28% FiO2 via trach collar electric utility lineworker at the bedside Plan is to be discharged to [facility] This patient was seen independently by the pulmonary nurse practitioner addressing pulmonary issues I have personally seen and examined the patient, performed the documentation and the assessment and plan as written. Number of minutes spent on the visit: 23.
[2023-11-22 12:17] LABS: Glucose,Whole Blood 101 mg/dL (70-110)
--- NOTE | 2023-11-22 13:33 | P.PN ---
Subjective Progress Note Date: 11/22/23 CHIEF COMPLAINT: Abdominal pain HISTORY OF PRESENT ILLNESS: Patient is status post PEG tube placement on 11/06/23. Patient is status post tracheostomy placement on 11/02/23. Patient is on a regular medical floor. No new complaints. Patient has safety bedside sitter. PHYSICAL EXAM: VITAL SIGNS: Reviewed. GENERAL: no acute distress. Neck: trach site clean, dry and intact. ABDOMEN: PEG tube site clean dry and intact ASSESSMENT: 1. Acute hypoxic respiratory failure due to alcohol withdraw syndrome 2. Severe protein calorie malnutrition PLAN: -Continue tube feeds -Continue supportive care -Awaiting insurance authorization for LTAC placement Physician Abrasive Mixer note has been reviewed by physician. Signing provider agrees with the documented findings, assessment, and plan of care. Greater than 60% of the total time spent in counseling and coordination of care Objective - Vital Signs Vital signs: Vital Signs Temp 98 F 11/22/23 13:12 Pulse 86 11/22/23 13:12 Resp 18 11/22/23 13:12 BP 114/81 11/22/23 13:12 Pulse Ox 99 11/22/23 13:12 FiO2 28 11/22/23 08:21 Intake & Output 11/21/23 11/22/23 11/22/23 18:59 06:59 18:59 Intake Total 894 Output Total 950 Balance -950 894 Weight 64.5 kg Intake: IV 240 Sodium Chloride 0.9% 1, 240 000 ml @ 10 mls/hr IV . Q24H [facility] Rx#:[id number] Tube Feeding 564 Other 90 Output: Urine 950 Other: Voiding Method Urinal Urinal Urinal Incontinent Diaper Diaper Incontinent Incontinent # Voids 1 ABP, PAP, CO, CI - Last Documented Arterial Blood Pressure 134/82 - Labs CBC & Chem 7: 11/18/23 13:07 11/18/23 13:07 Labs: Abnormal Lab Results - Last 24 Hours (Table) 11/21/23 Range/Units 17:46 POC Glucose (mg/dL) 114 H (70-110) mg/dL
[2023-11-22 17:37] LABS: Glucose,Whole Blood 117 mg/dL (70-110)
--- NOTE | 2023-11-22 23:57 | P.PN ---
Subjective 48-year-old white male with past medical history significant for hypertension, coronary artery disease, current everyday smoker, and alcohol abuse. He was transferred from [facility] 10/22/2023 for acute pancreatitis. He was noted to be intoxicated on arrival to outside facility, with an alcohol level of 34 mg/dL. He required ICU admission for Precedex infusion. He was also noted to have severely elevated lipase and amylase levels. An abdominal and pelvis CT was performed, which identified peripancreatic inflammatory stranding and fluid consistent with acute pancreatitis. No pseudocyst, abscess, or pancreatic necrosis. No gallstones or ductal dilation. There was decreased attenuation of the hepatic parenchyma, suggestive of fatty infiltration. Patient was dehdydrated and noted to have sustained an WILFRIDO. It appears he was fluid resuscitated with 2 L of crystalloid fluid. He was then transferred to [facility]. CBC from yesterday: WBC count 7.6, hemoglobin 13.9, hematocrit 42, platelets 110. Most recent CMP from yesterday: Sodium 138, potassium 4.4, chloride 108, serum bicarb 19, BUN 18, creatinine 1.13, glucose 94. AST 97, ALT 74, ALP 156, total bilirubin 1. Lipase 11,329 and amylase 1468. Patient is currently lethargic and not making much sense when talking. Unsure of when last drink was. Precedex is infusing at 0.4 mcg/kg/h. He does have bilateral upper extremity soft restraints on, which likely can be discontinued. Blood pressure is noted to be hypertensive, has received a clonidine 0.2 mg patch, which is fallen off and will be replaced. EKG shows normal sinus rhythm without any obv ious acute ischemic changes. Patient's pain appears well-managed with current regimen of as needed Dilaudid. He does have some facial grimacing with palpation of the bilateral upper abdomen. Normal saline is infusing at 150 MLS per hour. Currently on room air, in no acute respiratory distress. Afebrile. He has been moved to room 262 in the intensive care unit. -- Plan of care was discussed with patient's mother; reports she was told by family noticed that patient is now qualifying for hospice/palliative care -- Patient condition discussed in great detail; motor equipment lieutenant recommendations disc ussed with patient also; no plan to consult hospice or palliative care at this time 11/04/2023 Patient is seen and evaluated in room at bedside; discussed with nursing staff; no family members present in the room Patient remains on mechanical ventilator. He is on volume assist-control Blood gases show pO2 of 72, pCO2 47, pH is 7.41. Lab review shows white count 12.5, hemoglobin 9.9, hematocrit 30.3, and platelet count 357,000. Sodium 135, potassium 4.3, chlorides 102, CO2 28, BUN 19, creatinine 0.64. Glucose is 86. Phosphorus 4.7, calcium 9, magnesium 1.9. Sputum from October 25 shows evidence of Staphylococcus aureus. Chest x-ray shows bilateral small effusions, with adjacent atelectasis. -- Plan for PEG tube placement on 11/06/2023; and has been placed back on tube feeding -Intensive care service planning to wean off the fentanyl, patient has been placed on Dilaudid 1 mg every 4 hours -- Patient is status post tracheostomy; PEG tube placement rescheduled for Monday due to nonavailability of OR 11/05/2023 Patient is seen and evaluated in room at bedside; patient remains on mechanical ventilator. Settings include volume assist-control, rate 20, tidal volume 400, FiO2 50%, PEEP of 5. -- Blood gases show pO2 112, pCO2 45, pH is 7.46. The patient is getting lactated Ringer's at 20 cc an hour, propofol at 10 mcg/kg/min, and tube feedings with Nepro, at 10 cc an hour, with a goal of 19. - White count 14, hemoglobin 10.5, hematocrit 31.8, and platelet count 365,000. Sodium 137, potassium 3.7, chlorides 103, CO2 31, BUN 16, creatinine 0.69. Calcium is 9.2. Magnesium 1.9. Sputum from the was positive for Staphylococcus aureus. The patient has completed his antibiotics. Chest x-ray shows bilateral patchy infiltrates, which could be on the basis of fluid, and or pneumonia. 11/18/2023 --patient is seen and evaluated in room at bedside; remains in the ICU. Patient is doing well he is on trach collar/room air, continues to have lots of secretions being suctioned easily. Vital signs are reviewed and stable with temperature of 99.2, pulse 80, re spirations 16 and blood pressure 122/91 -- Remains on cefepime, patient seems to be calm and not in any distress. Chest x-ray is showing significant improvement compared to previous x-rays, he has mi nimal patchy areas of atelectasis, doubt infiltrate mostly in the left lower lobe area WBC count is 8.7 hemoglobin is 10 basic metabolic profile is normal and renal profile is normal. Transfer patient to regular medical floor; intensive care team recommending to discontinue antibiotics disability services coordinator to see for placement 11/19/2023 Patient is seen and evaluated in room at bedside; discussed with nursing staff; no new complaints reported Vital signs are stable with temperature of 98.7, pulse 1 2, respiration 20, blood pressure 93/60 -- Patient is status post tracheostomy and PEG tube placement; continue with tracheostomy and PEG tube care -- PT OT in place; patient will likely need placement 11/21/2023 Patient awake and alert Participating with physical therapy and follows command Patient s/p recommend PEG tube Ncefepime for pneumonia. However it was discontinued today. Will going to monitor while off antibiotic Patient on multiple psych medication being tapered off Librium 20 mg 3 times daily down to 10 mg 4 times daily. With the psychiatrist recommend to taper it of Decrease dose of Seroquel 25 mg from 50 mg. Continue the Prolixin as needed for agitation Sitter at bedside 11/22/2023 Patient mentation today significantly improved, almost back to baseline, he is awake and alert communicative and follows command, he is nonverbal, s/p tracheostomy His mentation improved after lowering sedatives, Librium 20 mg down to 10 mg every 6 hours, we are going to decrease frequency to 3 times daily from tomorrow Seroquel 25 mg added for control of agitation Remains on Protonix Antibiotics discontinued Will keep monitoring closely Objective - Vital Signs Vital signs: Vital Signs Temp 98 F 11/22/23 13:12 Pulse 86 11/22/23 15:46 Resp 18 11/22/23 13:12 BP 114/81 11/22/23 13:12 Pulse Ox 99 11/22/23 13:12 FiO2 28 11/22/23 08:21 Intake & Output 11/21/23 11/22/23 11/22/23 18:59 06:59 18:59 Intake Total 894 Output Total 950 Balance -950 894 Weight 64.5 kg Intake: IV 240 Sodium Chloride 0.9% 1, 240 000 ml @ 10 mls/hr IV . Q24H [facility] Rx#:[id number] Tube Feeding 564 Other 90 Output: Urine 950 Other: Voiding Method Urinal Urinal Urinal Incontinent Diaper Diaper Incontinent Incontinent # Voids 1 ABP, PAP, CO, CI - Last Documented Arterial Blood Pressure 134/82 - Exam -GENERAL: The patient is drowsy, follow commands HEENT: Pupils are round and equally reacting to light. EOMI. No scleral icterus. No conjunctival pallor. Normocephalic, atraumatic. No pharyngeal erythema. No thyromegaly. CARDIOVASCULAR: S1 and S2 present. No murmurs, rubs, or gallops. -PULMONARY: Chest is clear to auscultation, no wheezing , no crackles. Tracheostomy tube in place -ABDOMEN: Soft, nontender, nondistended, normoactive bowel sounds. No palpable organomegaly. PEG tube in place MUSCULOSKELETAL: No joint swelling or deformity. EXTREMITIES: No cyanosis, clubbing, or pedal edema. NEUROLOGICAL: Gross neurological examination did not reveal any focal deficits. SKIN: No rashes. no petechiae. - Labs CBC & Chem 7: 11/18/23 13:07 11/18/23 13:07 Labs: Abnormal Lab Results - Last 24 Hours (Table) 11/21/23 Range/Units 17:46 POC Glucose (mg/dL) 114 H (70-110) mg/dL Assessment and Plan Assessment: Altered mental status secondary to metabolic/toxic encephalopathy Acute hypoxemic respiratory failure second alcohol withdrawal symptoms and DTs currently intubated and on mechanical ventilator since October 26, 2023 Acute alcohol withdrawal symptoms and DTs Uncontrolled hypertension. Improved now. Acute pancreatitis likely alcohol-related Acute kidney injury likely prerenal improved now. Severe alcohol abuse Mild transaminitis improved History of coronary disease Currently everyday smoker Plan: cefepime was discontinued per ID team and keep monitoring while off antibiotic Continue with Librium and other psych medication. Taper dose of Librium per psychiatrist.. Seroquel dose lowered to 50 down to 25 mg Continue with Protonix Several consultants on the case ID, pulmonary, psychiatry and general surgery Labs and medication were reviewed.. Continue same treatment. Continue with symptomatic treatment. Resume home medication. Monitor labs and vitals. DVT and GI prophylaxis. Further recommendations as per clinical course of the patient DVT prophylaxis: Subcutaneous Lovenox GI Prophylaxis: Ppi Prognosis is guarded Restricted sedative, taper off gradually Possible discharge in 24 to 48 hours if he keeps improving
[2023-11-23 00:04] LABS: Glucose,Whole Blood 117 mg/dL (70-110)
[2023-11-23 05:56] LABS: Glucose,Whole Blood 109 mg/dL (70-110)
--- NOTE | 2023-11-23 10:40 | P.PN ---
Subjective Progress Note Date: 11/23/23 The patient is seen today November 20, 2023 in follow-up on the regular medical floor. The patient has been here for 28 days. He had alcohol withdrawal syndrome eventually requiring intubation and mechanical ventilatory support which was quite prolonged. He had a tracheostomy tube as well as a PEG tube placed. He is currently maintaining O2 saturations in the 90s on 35% trach collar. He is being nourished with Nepro at 47 MLS per hour which is his goal. The patient does have lKlebsiella pneumoniae and methicillin sensitive Staphylococcus aureus in his sputum. Blood cultures revealed no growth. Gl ucose 105. He remains on cefepime, bronchodilators. Remains on IV diuretics. Lovenox for DVT prophylaxis. Currently in a negative balance. The patient is seen today November 21, 2023 in follow-up on the regular medical floor. He is awake and alert in no acute distress. He is maintaining good O2 saturation in the mid 90s on 28% FiO2 via trach collar. Initial sputum culture was positive for MSSA and Klebsiella pneumoniae. Blood sugar 116. He remains on cefepime. Continued on bronchodilators. Lovenox for DVT prophylaxis. He is awaiting placement in either high skilled extended-care facility or long-term acute care facility. The patient is seen today November 22, 2023 in follow-up on the regular medical floor. He is sitting up in bed. Awake and alert in no acute distress. He is maintaining O2 saturations in the 90s on 28% trach collar. He has normal saline at 20 MLS per hour. He is being nourished with Nepro at 47 mL/h. He remains on bronchodilators. Lovenox for DVT prophylaxis. The patient is seen today November 23, 2023 in follow-up on the regular medical floor. He is resting in bed. Awake and alert. Maintaining O2 saturations in the 90s on 28% trach collar. He is being nursed with Nepro at 47 MLS per hour. Continues with some few scattered rhonchi. Sputum culture from November 11, 2023 has been positive for Staphylococcus aureus and Klebsiella pneumoniae. He has completed antibiotics. Continued on DuoNeb ventilations. Lovenox for DVT prophylaxis. Objective - Vital Signs Vital signs: Vital Signs Temp 97.7 F 11/23/23 07:55 Pulse 88 11/23/23 08:28 Resp 18 11/23/23 07:55 BP 117/81 11/23/23 07:55 Pulse Ox 92 L 11/23/23 07:55 FiO2 28 11/23/23 08:09 Intake & Output 11/22/23 11/23/23 11/23/23 18:59 06:59 18:59 Intake Total 1765 Balance 1765 Weight 63.5 kg Intake: IV 110 Sodium Chloride 0.9% 1, 110 000 ml @ 10 mls/hr IV . Q24H [facility] Rx#:[id number] Tube Feeding 1565 Other 90 Other: Voiding Method Urinal Urinal Diaper Diaper Incontinent Incontinent # Voids 3 1 ABP, PAP, CO, CI - Last Documented Arterial Blood Pressure 134/82 - Exam GENERAL EXAM: Revealed a 48-year-old male resting in bed, awake, alert, on 28% trach collar. HEAD: Normocephalic and atraumatic EYES: Normal reaction of pupils, equal size. NOSE: Clear with pink turbinates. THROAT: Tracheostomy tube secured in place. No erythema or exudates. NECK: No masses, no JVD. CHEST: No chest wall deformity. Symmetrical chest wall expansion LUNGS: Minimal crackles bilaterally no rhonchi no wheezes Cardiac: Normal S1-S2, no S3 gallop. ABDOMEN: PEG tube exit site clean and dry. Soft nontender no megaly no rebound no guarding SKIN: No rashes CENTRAL NERVOUS SYSTEM: Patient is awake, seems to be oriented x 3, calm. EXTREMITIES: No clubbing edema or cyanosis - Labs CBC & Chem 7: 11/18/23 13:07 11/18/23 13:07 Labs: Abnormal Lab Results - Last 24 Hours (Table) 11/22/23 11/23/23 Range/Units 17:33 00:01 POC Glucose (mg/dL) 117 H 117 H (70-110) mg/dL Assessment and Plan Assessment: Acute hypoxic respiratory failure secondary to acute alcohol withdrawal and unable to protect his airways, required intubation mechanical ventilation on 10/26/2023, required tracheostomy on 11/02/23 and PEG tube placement on 11/06/23, tracheostomy changed to a fenestrated Shiley size 6 tracheostomy on 11/14/23. Sputum culture was positive for Klebsiella pneumoniae and MSSA. Completed cefepime Acute alcohol withdrawal with acute alcohol intoxication, patient required a prolonged course of intubation and sedation because of his alcohol withdrawal. Acute pancreatitis, EtOH related. Resolved Abdominal pain, secondary to acute pancreatitis, resolved Acute kidney injury, resolved History of alcoholism Mild transaminitis History of coronary artery disease Current everyday smoker Hypertensive urgency, resolved Plan: The patient was seen and evaluated Medications reviewed Stable and on 28% FiO2 via trach collar Continued on bronchodilators IV Lasix discontinued Awaiting Medicaid insurance coverage [facility] This patient was seen independently by the pulmonary nurse practitioner addressing pulmonary issues I have personally seen and examined the patient, performed the documentation and the assessment and plan as written. Number of minutes spent on the visit: 24.
--- NOTE | 2023-11-23 12:51 | P.PN ---
Subjective Progress Note Date: 11/23/23 CHIEF COMPLAINT: Abdominal pain HISTORY OF PRESENT ILLNESS: Patient is status post PEG tube placement on 11/06/23. Patient is status post tracheostomy placement on 11/02/23. Patient is on a regular medical floor. No new complaints. PHYSICAL EXAM: VITAL SIGNS: Reviewed. GENERAL: no acute distress. Neck: trach site clean, dry and intact. ABDOMEN: PEG tube site clean dry and intact ASSESSMENT: 1. Acute hypoxic respiratory failure due to alcohol withdraw syndrome 2. Severe protein calorie malnutrition PLAN: -Continue tube feeds -Continue supportive care -Awaiting insurance authorization for LTAC placement Physician Diesel Pile Hammer Operator note has been reviewed by physician. Signing provider agrees with the documented findings, assessment, and plan of care. Greater than 60% of the total time spent in counseling and coordination of care Objective - Vital Signs Vital signs: Vital Signs Temp 97.7 F 11/23/23 07:55 Pulse 88 11/23/23 11:25 Resp 18 11/23/23 07:55 BP 117/81 11/23/23 07:55 Pulse Ox 92 L 11/23/23 07:55 FiO2 28 11/23/23 08:09 Intake & Output 11/22/23 11/23/23 11/23/23 18:59 06:59 18:59 Intake Total 1765 Balance 1765 Weight 63.5 kg Intake: IV 110 Sodium Chloride 0.9% 1, 110 000 ml @ 10 mls/hr IV . Q24H [facility] Rx#:[id number] Tube Feeding 1565 Other 90 Other: Voiding Method Urinal Urinal Diaper Diaper Incontinent Incontinent # Voids 3 1 ABP, PAP, CO, CI - Last Documented Arterial Blood Pressure 134/82 - Labs CBC & Chem 7: 11/18/23 13:07 11/18/23 13:07 Labs: Abnormal Lab Results - Last 24 Hours (Table) 11/22/23 11/23/23 Range/Units 17:33 00:01 POC Glucose (mg/dL) 117 H 117 H (70-110) mg/dL
[2023-11-23 13:00] LABS: Glucose,Whole Blood 95 mg/dL (70-110)
--- NOTE | 2023-11-23 15:53 | P.PN ---
Subjective Progress Note Date: 11/22/23 Principal diagnosis: Reason for follow-up is fever/leukocytosis/pneumonia Patient is a 48-year-old male with a past medical history significant for hypertension coronary disease anxiety current everyday smoker presenting to the hospital more than 2 weeks ago for evaluation of abdominal pain, has been diagnosed and treated for acute pancreatitis secondary to chronic alcohol patient failed to be extubated and got trach and PEG has been running a low- grade fever prompting this consultation. On today's evaluation that is 11/22/2023,the patient remains to be afebrile, patient is on 5 L trach collar supplemental oxygen and breathing comfortably patient was being held by the physical therapy denies any chest pain or cough no vomiting or diarrhea has been reported No new labs has been obtained today Objective - Vital Signs Vital signs: Vital Signs Temp 98 F 11/22/23 13:12 Pulse 86 11/22/23 15:46 Resp 18 11/22/23 13:12 BP 114/81 11/22/23 13:12 Pulse Ox 99 11/22/23 13:12 FiO2 28 11/22/23 08:21 Intake & Output 11/21/23 11/22/23 11/22/23 18:59 06:59 18:59 Intake Total 894 Output Total 950 Balance -950 894 Weight 64.5 kg Intake: IV 240 Sodium Chloride 0.9% 1, 240 000 ml @ 10 mls/hr IV . Q24H [facility] Rx#:[id number] Tube Feeding 564 Other 90 Output: Urine 950 Other: Voiding Method Urinal Urinal Urinal Incontinent Diaper Diaper Incontinent Incontinent # Voids 1 ABP, PAP, CO, CI - Last Documented Arterial Blood Pressure 134/82 - Exam GENERAL DESCRIPTION: Middle-age male lying in bed in no distress RESPIRATORY SYSTEM: Unlabored breathing , decreased breath sounds at bases HEART: S1 S2 regular rate and rhythm , ABDOMEN: Soft , mild distention and tenderness EXTREMITIES: No edema feet - Labs CBC & Chem 7: 11/18/23 13:07 11/18/23 13:07 Labs: Abnormal Lab Results - Last 24 Hours (Table) 11/21/23 Range/Units 17:46 POC Glucose (mg/dL) 114 H (70-110) mg/dL Assessment and Plan (1) Fever Current Visit: Yes Status: Acute Code(s): R50.9 - FEVER, UNSPECIFIED SNOMED Code(s): 188244035 (2) Leukocytosis Current Visit: Yes Status: Acute Code(s): D72.829 - ELEVATED WHITE BLOOD CELL COUNT, UNSPECIFIED SNOMED Code(s): 678365796 (3) Pneumonia Current Visit: Yes Status: Acute Code(s): J18.9 - PNEUMONIA, UNSPECIFIED ORGANISM SNOMED Code(s): 431574147 (4) Alcoholic pancreatitis Current Visit: Yes Status: Acute Code(s): K85.20 - ALCOHOL INDUCED ACUTE PANCREATITIS WITHOUT NECROSIS OR INFCT SNOMED Code(s): 901063838 Plan: 1patient with low-grade fever in this patient with initial admission to the hospital for acute pancreatitis secondary to his alcoholism patient did get intubated because of respiratory distress and did have a positive sputum culture for MSSA on 10/26/2023 patient failed to be extubated and is s/p trach on and PEG tube on 11/06/2023 with the etiology of low-grade fever elevated white count is multifactorial question of pneumonia versus abdominal etiology and the patient was noted to have significant abdominal distention and apparently the patient did not have bowel movement for the last 5 to 6 days per the nursing staff 2-patient CT of abdominal pelvis with contrast, did not show any worsening pancreatitis pseudocyst or abscess mild cystitis and effusion 3-patient sputum is growing MSSA and Klebsiella 4-patient did have resolution of his fever white count normalized patient has received adequate antibiotic for underlying pneumonia currently being monitored closely off antibiotic therapy Dictation was produced using [employer] dictation software. please excuse any grammatical, word or spelling errors. Time with Patient: Less than 30
--- NOTE | 2023-11-23 15:53 | P.PN ---
Subjective Progress Note Date: 11/23/23 Principal diagnosis: Reason for follow-up is fever/leukocytosis/pneumonia Patient is a 48-year-old male with a past medical history significant for hypertension coronary disease anxiety current everyday smoker presenting to the hospital more than 2 weeks ago for evaluation of abdominal pain, has been diagnosed and treated for acute pancreatitis secondary to chronic alcohol patient failed to be extubated and got trach and PEG has been running a low- grade fever prompting this consultation. On today's evaluation that is 11/23/2023, the patient continues to be afebrile, the patient is on 5 L trach collar and breathing comfortably, the Pt does not seem to be any distress he is currently sleepy lethargic and did not answer any question. No new labs has been obtained today Objective - Vital Signs Vital signs: Vital Signs Temp 97.7 F 11/23/23 07:55 Pulse 88 11/23/23 11:25 Resp 18 11/23/23 07:55 BP 117/81 11/23/23 07:55 Pulse Ox 92 L 11/23/23 07:55 FiO2 28 11/23/23 08:09 Intake & Output 11/22/23 11/23/23 11/23/23 18:59 06:59 18:59 Intake Total 1765 Balance 1765 Weight 63.5 kg Intake: IV 110 Sodium Chloride 0.9% 1, 110 000 ml @ 10 mls/hr IV . Q24H [facility] Rx#:[id number] Tube Feeding 1565 Other 90 Other: Voiding Method Urinal Urinal Diaper Diaper Incontinent Incontinent # Voids 3 1 ABP, PAP, CO, CI - Last Documented Arterial Blood Pressure 134/82 - Exam GENERAL DESCRIPTION: Middle-age male lying in bed in no distress RESPIRATORY SYSTEM: Unlabored breathing , decreased breath sounds at bases HEART: S1 S2 regular rate and rhythm , ABDOMEN: Soft , mild distention and tenderness EXTREMITIES: No edema feet - Labs CBC & Chem 7: 11/18/23 13:07 11/18/23 13:07 Labs: Abnormal Lab Results - Last 24 Hours (Table) 11/22/23 11/23/23 Range/Units 17:33 00:01 POC Glucose (mg/dL) 117 H 117 H (70-110) mg/dL Assessment and Plan (1) Fever Current Visit: Yes Status: Acute Code(s): R50.9 - FEVER, UNSPECIFIED SNOMED Code(s): 567879903 (2) Leukocytosis Current Visit: Yes Status: Acute Code(s): D72.829 - ELEVATED WHITE BLOOD CELL COUNT, UNSPECIFIED SNOMED Code(s): 844137575 (3) Pneumonia Current Visit: Yes Status: Acute Code(s): J18.9 - PNEUMONIA, UNSPECIFIED ORGANISM SNOMED Code(s): 446768167 (4) Alcoholic pancreatitis Current Visit: Yes Status: Acute Code(s): K85.20 - ALCOHOL INDUCED ACUTE PANCREATITIS WITHOUT NECROSIS OR INFCT SNOMED Code(s): 777117945 Plan: 1patient with low-grade fever in this patient with initial admission to the hospital for acute pancreatitis secondary to his alcoholism patient did get intubated because of respiratory distress and did have a positive sputum culture for MSSA on 10/26/2023 patient failed to be extubated and is s/p trach on 11/02/2023 and PEG tube on 11/06/2023 with the etiology of low-grade fever elevated white count is multifactorial question of pneumonia versus abdominal etiology and the patient was noted to have significant abdominal distention and apparently the patient did not have bowel movement for the last 5 to 6 days per the nursing staff 2-patient CT of abdominal pelvis with contrast, did not show any worsening pancreatitis pseudocyst or abscess mild cystitis and effusion 3-patient sputum is growing MSSA and Klebsiella 4-patient did have resolution of his fever white count normalized patient has received adequate antibiotic for underlying pneumonia and will be monitored closely off antibiotic therapy Dictation was produced using [employer] dictation software. please excuse any grammatical, word or spelling errors. Time with Patient: Less than 30
[2023-11-23 18:44] LABS: Glucose,Whole Blood 105 mg/dL (70-110)
--- NOTE | 2023-11-23 22:48 | P.PN ---
Subjective 48-year-old white male with past medical history significant for hypertension, coronary artery disease, current everyday smoker, and alcohol abuse. He was transferred from [facility] 10/22/2023 for acute pancreatitis. He was noted to be intoxicated on arrival to outside facility, with an alcohol level of 34 mg/dL. He required ICU admission for Precedex infusion. He was also noted to have severely elevated lipase and amylase levels. An abdominal and pelvis CT was performed, which identified peripancreatic inflammatory stranding and fluid consistent with acute pancreatitis. No pseudocyst, abscess, or pancreatic necrosis. No gallstones or ductal dilation. There was decreased attenuation of the hepatic parenchyma, suggestive of fatty infiltration. Patient was dehdydrated and noted to have sustained an WILFRIDO. It appears he was fluid resuscitated with 2 L of crystalloid fluid. He was then transferred to [facility]. CBC from yesterday: WBC count 7.6, hemoglobin 13.9, hematocrit 42, platelets 110. Most recent CMP from yesterday: Sodium 138, potassium 4.4, chloride 108, serum bicarb 19, BUN 18, creatinine 1.13, glucose 94. AST 97, ALT 74, ALP 156, total bilirubin 1. Lipase 11,329 and amylase 1468. Patient is currently lethargic and not making much sense when talking. Unsure of when last drink was. Precedex is infusing at 0.4 mcg/kg/h. He does have bilateral upper extremity soft restraints on, which likely can be discontinued. Blood pressure is noted to be hypertensive, has received a clonidine 0.2 mg patch, which is fallen off and will be replaced. EKG shows normal sinus rhythm without any obv ious acute ischemic changes. Patient's pain appears well-managed with current regimen of as needed Dilaudid. He does have some facial grimacing with palpation of the bilateral upper abdomen. Normal saline is infusing at 150 MLS per hour. Currently on room air, in no acute respiratory distress. Afebrile. He has been moved to room 262 in the intensive care unit. -- Plan of care was discussed with patient's mother; reports she was told by family noticed that patient is now qualifying for hospice/palliative care -- Patient condition discussed in great detail; taper machine recommendations disc ussed with patient also; no plan to consult hospice or palliative care at this time 11/04/2023 Patient is seen and evaluated in room at bedside; discussed with nursing staff; no family members present in the room Patient remains on mechanical ventilator. He is on volume assist-control Blood gases show pO2 of 72, pCO2 47, pH is 7.41. Lab review shows white count 12.5, hemoglobin 9.9, hematocrit 30.3, and platelet count 357,000. Sodium 135, potassium 4.3, chlorides 102, CO2 28, BUN 19, creatinine 0.64. Glucose is 86. Phosphorus 4.7, calcium 9, magnesium 1.9. Sputum from October 25 shows evidence of Staphylococcus aureus. Chest x-ray shows bilateral small effusions, with adjacent atelectasis. -- Plan for PEG tube placement on 11/06/2023; and has been placed back on tube feeding -Intensive care service planning to wean off the fentanyl, patient has been placed on Dilaudid 1 mg every 4 hours -- Patient is status post tracheostomy; PEG tube placement rescheduled for Monday due to nonavailability of OR 11/05/2023 Patient is seen and evaluated in room at bedside; patient remains on mechanical ventilator. Settings include volume assist-control, rate 20, tidal volume 400, FiO2 50%, PEEP of 5. -- Blood gases show pO2 112, pCO2 45, pH is 7.46. The patient is getting lactated Ringer's at 20 cc an hour, propofol at 10 mcg/kg/min, and tube feedings with Nepro, at 10 cc an hour, with a goal of 19. - White count 14, hemoglobin 10.5, hematocrit 31.8, and platelet count 365,000. Sodium 137, potassium 3.7, chlorides 103, CO2 31, BUN 16, creatinine 0.69. Calcium is 9.2. Magnesium 1.9. Sputum from the was positive for Staphylococcus aureus. The patient has completed his antibiotics. Chest x-ray shows bilateral patchy infiltrates, which could be on the basis of fluid, and or pneumonia. 11/18/2023 --patient is seen and evaluated in room at bedside; remains in the ICU. Patient is doing well he is on trach collar/room air, continues to have lots of secretions being suctioned easily. Vital signs are reviewed and stable with temperature of 99.2, pulse 80, re spirations 16 and blood pressure 122/91 -- Remains on cefepime, patient seems to be calm and not in any distress. Chest x-ray is showing significant improvement compared to previous x-rays, he has mi nimal patchy areas of atelectasis, doubt infiltrate mostly in the left lower lobe area WBC count is 8.7 hemoglobin is 10 basic metabolic profile is normal and renal profile is normal. Transfer patient to regular medical floor; intensive care team recommending to discontinue antibiotics guest services assistant to see for placement 11/19/2023 Patient is seen and evaluated in room at bedside; discussed with nursing staff; no new complaints reported Vital signs are stable with temperature of 98.7, pulse 1 2, respiration 20, blood pressure 93/60 -- Patient is status post tracheostomy and PEG tube placement; continue with tracheostomy and PEG tube care -- PT OT in place; patient will likely need placement 11/21/2023 Patient awake and alert Participating with physical therapy and follows command Patient s/p recommend PEG tube Ncefepime for pneumonia. However it was discontinued today. Will going to monitor while off antibiotic Patient on multiple psych medication being tapered off Librium 20 mg 3 times daily down to 10 mg 4 times daily. With the psychiatrist recommend to taper it of Decrease dose of Seroquel 25 mg from 50 mg. Continue the Prolixin as needed for agitation Sitter at bedside 11/22/2023 Patient mentation today significantly improved, almost back to baseline, he is awake and alert communicative and follows command, he is nonverbal, s/p tracheostomy His mentation improved after lowering sedatives, Librium 20 mg down to 10 mg every 6 hours, we are going to decrease frequency to 3 times daily from tomorrow Seroquel 25 mg added for control of agitation Remains on Protonix Antibiotics discontinued Will keep monitoring closely 11/23/2023 Patient mentation is improving after tapering down his Librium currently 10 mg 3 times daily Patient remains on trach collar No other new complaint plan for discharge to LTAC pending insurance authorization Objective - Vital Signs Vital signs: Vital Signs Temp 97.3 F L 11/23/23 19:16 Pulse 82 11/23/23 20:07 Resp 16 11/23/23 19:16 BP 134/88 11/23/23 19:16 Pulse Ox 93 L 11/23/23 19:16 FiO2 28 11/23/23 08:09 Intake & Output 11/23/23 11/23/23 11/24/23 06:59 18:59 06:59 Intake Total 1765 Balance 1765 Weight 63.5 kg Intake: IV 110 Sodium Chloride 0.9% 1, 110 000 ml @ 10 mls/hr IV . Q24H [facility] Rx#:[id number] Tube Feeding 1565 Other 90 Other: Voiding Method Urinal Urinal Diaper Diaper Incontinent Incontinent # Voids 1 ABP, PAP, CO, CI - Last Documented Arterial Blood Pressure 134/82 - Exam -GENERAL: The patient is drowsy, follow commands HEENT: Pupils are round and equally reacting to light. EOMI. No scleral icterus. No conjunctival pallor. Normocephalic, atraumatic. No pharyngeal erythema. No thyromegaly. CARDIOVASCULAR: S1 and S2 present. No murmurs, rubs, or gallops. -PULMONARY: Chest is clear to auscultation, no wheezing , no crackles. Tracheostomy tube in place -ABDOMEN: Soft, nontender, nondistended, normoactive bowel sounds. No palpable organomegaly. PEG tube in place MUSCULOSKELETAL: No joint swelling or deformity. EXTREMITIES: No cyanosis, clubbing, or pedal edema. NEUROLOGICAL: Gross neurological examination did not reveal any focal deficits. SKIN: No rashes. no petechiae. - Labs CBC & Chem 7: 11/18/23 13:07 11/18/23 13:07 Labs: Abnormal Lab Results - Last 24 Hours (Table) 11/23/23 Range/Units 00:01 POC Glucose (mg/dL) 117 H (70-110) mg/dL Assessment and Plan Assessment: Altered mental status secondary to metabolic/toxic encephalopathy Acute hypoxemic respiratory failure second alcohol withdrawal symptoms and DTs currently intubated and on mechanical ventilator since October 26, 2023 Acute alcohol withdrawal symptoms and DTs Uncontrolled hypertension. Improved now. Acute pancreatitis likely alcohol-related Acute kidney injury likely prerenal improved now. Severe alcohol abuse Mild transaminitis improved History of coronary disease Currently everyday smoker Plan: cefepime was discontinued per ID team and keep monitoring while off antibiotic Continue with Librium and other psych medication. Taper dose of Librium per psychiatrist.. Seroquel dose lowered to 50 down to 25 mg Continue with Protonix Several consultants on the case ID, pulmonary, psychiatry and general surgery Labs and medication were reviewed.. Continue same treatment. Continue with symptomatic treatment. Resume home medication. Monitor labs and vitals. DVT and GI prophylaxis. Further recommendations as per clinical course of the patient DVT prophylaxis: Subcutaneous Lovenox GI Prophylaxis: Ppi Prognosis is guarded Restricted sedative, taper off gradually Possible discharge in 24 to 48 hours if he keeps improving
[2023-11-24 01:34] LABS: Glucose,Whole Blood 119 mg/dL (70-110)
[2023-11-24 06:16] LABS: Glucose,Whole Blood 99 mg/dL (70-110)
--- NOTE | 2023-11-24 11:15 | P.PN ---
Subjective Progress Note Date: 11/24/23 The patient is seen today November 20, 2023 in follow-up on the regular medical floor. The patient has been here for 28 days. He had alcohol withdrawal syndrome eventually requiring intubation and mechanical ventilatory support which was quite prolonged. He had a tracheostomy tube as well as a PEG tube placed. He is currently maintaining O2 saturations in the 90s on 35% trach collar. He is being nourished with Nepro at 47 MLS per hour which is his goal. The patient does have lKlebsiella pneumoniae and methicillin sensitive Staphylococcus aureus in his sputum. Blood cultures revealed no growth. Gl ucose 105. He remains on cefepime, bronchodilators. Remains on IV diuretics. Lovenox for DVT prophylaxis. Currently in a negative balance. The patient is seen today November 21, 2023 in follow-up on the regular medical floor. He is awake and alert in no acute distress. He is maintaining good O2 saturation in the mid 90s on 28% FiO2 via trach collar. Initial sputum culture was positive for MSSA and Klebsiella pneumoniae. Blood sugar 116. He remains on cefepime. Continued on bronchodilators. Lovenox for DVT prophylaxis. He is awaiting placement in either high skilled extended-care facility or long-term acute care facility. The patient is seen today November 22, 2023 in follow-up on the regular medical floor. He is sitting up in bed. Awake and alert in no acute distress. He is maintaining O2 saturations in the 90s on 28% trach collar. He has normal saline at 20 MLS per hour. He is being nourished with Nepro at 47 mL/h. He remains on bronchodilators. Lovenox for DVT prophylaxis. The patient is seen today November 23, 2023 in follow-up on the regular medical floor. He is resting in bed. Awake and alert. Maintaining O2 saturations in the 90s on 28% trach collar. He is being nursed with Nepro at 47 MLS per hour. Continues with some few scattered rhonchi. Sputum culture from November 11, 2023 has been positive for Staphylococcus aureus and Klebsiella pneumoniae. He has completed antibiotics. Continued on DuoNeb ventilations. Lovenox for DVT prophylaxis. The patient is seen today November 24, 2023 in follow-up on the regular medical floor. He is sitting up in bed. Awake and alert in no acute distress. Continues to maintain good O2 saturations in the 90s on 28% trach collar. Being nourished with Nepro at 47 mL/h. Glucose 99. He remains on bronchodilators. Lovenox for DVT prophylaxis. Awaiting transfer to LTAC or subacute rehabilitation. Objective - Vital Signs Vital signs: Vital Signs Temp 97.8 F 11/24/23 07:59 Pulse 72 11/24/23 08:23 Resp 18 11/24/23 07:59 BP 145/92 11/24/23 07:59 Pulse Ox 97 11/24/23 01:33 FiO2 28 11/24/23 08:10 Intake & Output 11/23/23 11/24/23 11/24/23 18:59 06:59 18:59 Weight 64 kg Other: Voiding Method Urinal Urinal Urinal Diaper Diaper Diaper Incontinent Incontinent Incontinent # Voids 2 ABP, PAP, CO, CI - Last Documented Arterial Blood Pressure 134/82 - Exam GENERAL EXAM: Revealed a pleasant 48-year-old male sitting up in bed, awake, alert, on 28% trach collar. HEAD: Normocephalic and atraumatic EYES: Normal reaction of pupils, equal size. NOSE: Clear with pink turbinates. THROAT: Tracheostomy tube secured in place. No erythema or exudates. NECK: No masses, no JVD. CHEST: No chest wall deformity. Symmetrical chest wall expansion LUNGS: Minimal crackles bilaterally no rhonchi no wheezes Cardiac: Normal S1-S2, no S3 gallop. ABDOMEN: PEG tube exit site clean and dry. Soft nontender no megaly no rebound no guarding SKIN: No rashes CENTRAL NERVOUS SYSTEM: Patient is awake, seems to be oriented x 3, calm. EXTREMITIES: No clubbing edema or cyanosis - Labs CBC & Chem 7: 11/18/23 13:07 11/18/23 13:07 Labs: Abnormal Lab Results - Last 24 Hours (Table) 11/24/23 Range/Units 01:28 POC Glucose (mg/dL) 119 H (70-110) mg/dL Assessment and Plan Assessment: Acute hypoxic respiratory failure secondary to acute alcohol withdrawal and unable to protect his airways, required intubation mechanical ventilation on 10/26/2023, required tracheostomy on 11/02/23 and PEG tube placement on 11/06/23, tracheostomy changed to a fenestrated Shiley size 6 tracheostomy on 11/14/23. Sputum culture was positive for Klebsiella pneumoniae and MSSA. Completed cefepime Acute alcohol withdrawal with acute alcohol intoxication, patient required a prolonged course of intubation and sedation because of his alcohol withdrawal Acute pancreatitis, EtOH related. Resolved Abdominal pain, secondary to acute pancreatitis, resolved Acute kidney injury, resolved History of alcoholism Mild transaminitis History of coronary artery disease Current everyday smoker Hypertensive urgency, resolved Plan: The patient was seen and evaluated Medications reviewed Stable and on 28% FiO2 via trach collar Continued on bronchodilators Plan is to be discharged to [facility] facility This patient was seen independently by the pulmonary nurse practitioner addressing pulmonary issues I have personally seen and examined the patient, performed the documentation and the assessment and plan as written. Number of minutes spent on the visit: 22.
[2023-11-24 13:23] LABS: Glucose,Whole Blood 97 mg/dL (70-110)
--- NOTE | 2023-11-24 13:37 | P.PN ---
Subjective Progress Note Date: 11/24/23 CHIEF COMPLAINT: Abdominal pain HISTORY OF PRESENT ILLNESS: Patient is status post PEG tube placement on 11/06/23. Patient is status post tracheostomy placement on 11/02/23. Patient is on a regular medical floor. No new complaints. PHYSICAL EXAM: VITAL SIGNS: Reviewed. GENERAL: no acute distress. Neck: trach site clean, dry and intact. ABDOMEN: PEG tube site clean dry and intact ASSESSMENT: 1. Acute hypoxic respiratory failure due to alcohol withdraw and unable to protect airway 2. Severe protein calorie malnutrition PLAN: -Continue tube feeds -Continue supportive care -Awaiting insurance authorization for LTAC placement Physician Nba Player note has been reviewed by physician. Signing provider agrees with the documented findings, assessment, and plan of care. Greater than 60% of the total time spent in counseling and coordination of care Objective - Vital Signs Vital signs: Vital Signs Temp 97.4 F L 11/24/23 12:45 Pulse 79 11/24/23 12:45 Resp 18 11/24/23 12:45 BP 137/90 11/24/23 12:45 Pulse Ox 94 L 11/24/23 12:45 FiO2 28 11/24/23 08:10 Intake & Output 11/23/23 11/24/23 11/24/23 18:59 06:59 18:59 Weight 64 kg Other: Voiding Method Urinal Urinal Urinal Diaper Diaper Diaper Incontinent Incontinent Incontinent # Voids 2 ABP, PAP, CO, CI - Last Documented Arterial Blood Pressure 134/82 - Labs CBC & Chem 7: 11/18/23 13:07 11/18/23 13:07 Labs: Abnormal Lab Results - Last 24 Hours (Table) 11/24/23 Range/Units 01:28 POC Glucose (mg/dL) 119 H (70-110) mg/dL
--- NOTE | 2023-11-24 16:29 | P.PN ---
Subjective Progress Note Date: 11/24/23 Principal diagnosis: Reason for follow-up is fever/leukocytosis/pneumonia Patient is a 48-year-old male with a past medical history significant for hypertension coronary disease anxiety current everyday smoker presenting to the hospital more than 2 weeks ago for evaluation of abdominal pain, has been diagnosed and treated for acute pancreatitis secondary to chronic alcohol patient failed to be extubated and got trach and PEG has been running a low- grade fever prompting this consultation. On today's evaluation that is 11/24/2023, Patient is afebrile patient is cur rently on 5 L trach collar and denies having any shortness of breath, the patient denies any chest pain or cough, the patient denies any nausea vomiting did not have any abdominal pain and no diarrhea, no new symptoms. No new labs has been obtained today Objective - Vital Signs Vital signs: Vital Signs Temp 97.8 F 11/24/23 07:59 Pulse 76 11/24/23 12:00 Resp 18 11/24/23 07:59 BP 145/92 11/24/23 07:59 Pulse Ox 97 11/24/23 01:33 FiO2 28 11/24/23 08:10 Intake & Output 11/23/23 11/24/23 11/24/23 18:59 06:59 18:59 Weight 64 kg Other: Voiding Method Urinal Urinal Urinal Diaper Diaper Diaper Incontinent Incontinent Incontinent # Voids 2 ABP, PAP, CO, CI - Last Documented Arterial Blood Pressure 134/82 - Exam GENERAL DESCRIPTION: Middle-age male lying in bed in no distress RESPIRATORY SYSTEM: Unlabored breathing , decreased breath sounds at bases HEART: S1 S2 regular rate and rhythm , ABDOMEN: Soft , mild distention and tenderness EXTREMITIES: No edema feet - Labs CBC & Chem 7: 11/18/23 13:07 11/18/23 13:07 Labs: Abnormal Lab Results - Last 24 Hours (Table) 11/24/23 Range/Units 01:28 POC Glucose (mg/dL) 119 H (70-110) mg/dL Assessment and Plan (1) Fever Current Visit: Yes Status: Acute Code(s): R50.9 - FEVER, UNSPECIFIED SNOMED Code(s): 667130041 (2) Leukocytosis Current Visit: Yes Status: Acute Code(s): D72.829 - ELEVATED WHITE BLOOD CELL COUNT, UNSPECIFIED SNOMED Code(s): 823414306 (3) Pneumonia Current Visit: Yes Status: Acute Code(s): J18.9 - PNEUMONIA, UNSPECIFIED ORGANISM SNOMED Code(s): 875751772 (4) Alcoholic pancreatitis Current Visit: Yes Status: Acute Code(s): K85.20 - ALCOHOL INDUCED ACUTE PANCREATITIS WITHOUT NECROSIS OR INFCT SNOMED Code(s): 420161833 Plan: 1patient with low-grade fever in this patient with initial admission to the hospital for acute pancreatitis secondary to his alcoholism patient did get intubated because of respiratory distress and did have a positive sputum culture for MSSA on 10/26/2023 patient failed to be extubated and is s/p trach on 11/02/2023 and PEG tube on 11/06/2023 with the etiology of low-grade fever elevated white count is multifactorial question of pneumonia versus abdominal etiology and the patient was noted to have significant abdominal distention and apparently the patient did not have bowel movement for the last 5 to 6 days per the nursing staff 2-patient CT of abdominal pelvis with contrast, did not show any worsening pancreatitis pseudocyst or abscess mild cystitis and effusion 3-patient sputum is growing MSSA and Klebsiella 4-patient did have resolution of his fever white count normalized patient has received adequate antibiotic for underlying pneumonia, will continue monitor the patient closely off antibiotic therapy Dictation was produced using [employer] dictation software. please excuse any grammatical, word or spelling errors. Time with Patient: Less than 30
[2023-11-24 17:31] LABS: Glucose,Whole Blood 95 mg/dL (70-110)
[2023-11-25 00:34] LABS: Glucose,Whole Blood 83 mg/dL (70-110)
[2023-11-25] MEDS: HALOPERIDOL LACTATE 5 MG/ML 1 ML VIAL IM STA (02:16)
[2023-11-25 06:28] LABS: Glucose,Whole Blood 99 mg/dL (70-110)
--- NOTE | 2023-11-25 07:46 | P.PN ---
Subjective Progress Note Date: 11/25/23 The patient is seen today November 20, 2023 in follow-up on the regular medical floor. The patient has been here for 28 days. He had alcohol withdrawal syndrome eventually requiring intubation and mechanical ventilatory support which was quite prolonged. He had a tracheostomy tube as well as a PEG tube placed. He is currently maintaining O2 saturations in the 90s on 35% trach collar. He is being nourished with Nepro at 47 MLS per hour which is his goal. The patient does have lKlebsiella pneumoniae and methicillin sensitive Staphylococcus aureus in his sputum. Blood cultures revealed no growth. Gl ucose 105. He remains on cefepime, bronchodilators. Remains on IV diuretics. Lovenox for DVT prophylaxis. Currently in a negative balance. The patient is seen today November 21, 2023 in follow-up on the regular medical floor. He is awake and alert in no acute distress. He is maintaining good O2 saturation in the mid 90s on 28% FiO2 via trach collar. Initial sputum culture was positive for MSSA and Klebsiella pneumoniae. Blood sugar 116. He remains on cefepime. Continued on bronchodilators. Lovenox for DVT prophylaxis. He is awaiting placement in either high skilled extended-care facility or long-term acute care facility. The patient is seen today November 22, 2023 in follow-up on the regular medical floor. He is sitting up in bed. Awake and alert in no acute distress. He is maintaining O2 saturations in the 90s on 28% trach collar. He has normal saline at 20 MLS per hour. He is being nourished with Nepro at 47 mL/h. He remains on bronchodilators. Lovenox for DVT prophylaxis. The patient is seen today November 23, 2023 in follow-up on the regular medical floor. He is resting in bed. Awake and alert. Maintaining O2 saturations in the 90s on 28% trach collar. He is being nursed with Nepro at 47 MLS per hour. Continues with some few scattered rhonchi. Sputum culture from November 11, 2023 has been positive for Staphylococcus aureus and Klebsiella pneumoniae. He has completed antibiotics. Continued on DuoNeb ventilations. Lovenox for DVT prophylaxis. The patient is seen today November 24, 2023 in follow-up on the regular medical floor. He is sitting up in bed. Awake and alert in no acute distress. Continues to maintain good O2 saturations in the 90s on 28% trach collar. Being nourished with Nepro at 47 mL/h. Glucose 99. He remains on bronchodilators. Lovenox for DVT prophylaxis. Awaiting transfer to LTAC or subacute rehabilitation. The patient is seen today November 25, 2023 in follow-up on the regular medical floor. He is awake and alert in no acute distress. Apparently he has been trying to climb out of bed. There is a enforcement safety officer at the bedside. He is still awaiting placement at [facility] once the insurance authorization has been completed. His blood glucose is 99 he remains on Nepro at 47 mL/h. He is receiving 0.9 normal saline at [facility]. He is maintaining O2 saturations in the 90s on 28% trach collar. Objective - Vital Signs Vital signs: Vital Signs Temp 98.6 F 11/25/23 02:26 Pulse 68 11/25/23 07:31 Resp 16 11/25/23 05:05 BP 133/87 11/25/23 05:05 Pulse Ox 97 11/25/23 05:05 FiO2 28 11/25/23 07:31 Intake & Output 11/24/23 11/25/23 11/25/23 18:59 06:59 18:59 Intake Total 120 565 Balance 120 565 Weight 63.5 kg Intake: IV 120 Sodium Chloride 0.9% 1, 120 000 ml @ 10 mls/hr IV . Q24H [facility] Rx#:[id number] Tube Feeding 565 Other: Voiding Method Urinal Diaper Incontinent # Voids 2 3 ABP, PAP, CO, CI - Last Documented Arterial Blood Pressure 134/82 - Exam GENERAL EXAM: Revealed a 48-year-old male resting in bed, on 28% trach collar. HEAD: Normocephalic and atraumatic EYES: Normal reaction of pupils, equal size. NOSE: Clear with pink turbinates. THROAT: Tracheostomy tube secured in place. No erythema or exudates. NECK: No masses, no JVD. CHEST: No chest wall deformity. Symmetrical chest wall expansion LUNGS: Minimal crackles bilaterally no rhonchi no wheezes Cardiac: Normal S1-S2, no S3 gallop. ABDOMEN: PEG tube exit site clean and dry. Soft nontender no megaly no rebound no guarding SKIN: No rashes CENTRAL NERVOUS SYSTEM: Patient is awake, seems to be oriented x 3, calm. EXTREMITIES: No clubbing edema or cyanosis - Labs CBC & Chem 7: 11/18/23 13:07 11/18/23 13:07 Assessment and Plan Assessment: Acute hypoxic respiratory failure secondary to acute alcohol withdrawal and unable to protect his airways, required intubation mechanical ventilation on 10/26/2023, required tracheostomy on 11/02/23 and PEG tube placement on 11/06/23, tracheostomy changed to a fenestrated Shiley size 6 tracheostomy on 11/14/23. Sputum culture was positive for Klebsiella pneumoniae and MSSA. Completed cefepime Acute alcohol withdrawal with acute alcohol intoxication, patient required a prolonged course of intubation and sedation because of his alcohol withdrawal Acute pancreatitis, EtOH related. Resolved Abdominal pain, secondary to acute pancreatitis, resolved Acute kidney injury, resolved History of alcoholism Mild transaminitis History of coronary artery disease Current everyday smoker Hypertensive urgency, resolved Plan: The patient was seen and evaluated Medications reviewed Stable and on 28% FiO2 via trach collar Continued on bronchodilators cooling tower operator remains at the bedside Dr. Broderick spoke with the patient's mother with an update Insurance authorization pending Plan is to be discharged to [facility] facility This patient was seen independently by the pulmonary nurse practitioner addressing pulmonary issues I have personally seen and examined the patient, performed the documentation and the assessment and plan as written. Number of minutes spent on the visit: 24.
--- NOTE | 2023-11-25 11:10 | P.PN ---
Progress Note - Text Progress Note Date: 11/25/23 CHIEF COMPLAINT: Abdominal pain HISTORY OF PRESENT ILLNESS: Patient is status post PEG tube placement on 11/06/23. Patient is status post tracheostomy placement on 11/02/23. Patient is on a regular medical floor. No new complaints. PHYSICAL EXAM: VITAL SIGNS: Reviewed. GENERAL: no acute distress. Neck: trach site clean, dry and intact. ABDOMEN: PEG tube site clean dry and intact ASSESSMENT: 1. Acute hypoxic respiratory failure due to alcohol withdraw and unable to protect airway 2. Severe protein calorie malnutrition PLAN: -Continue tube feeds -Continue supportive care -Awaiting insurance authorization for LTAC placeme
[2023-11-25 12:31] LABS: Glucose,Whole Blood 110 mg/dL (70-110)
[2023-11-25 17:20] LABS: Glucose,Whole Blood 95 mg/dL (70-110)
--- NOTE | 2023-11-25 23:41 | P.PN ---
Subjective 48-year-old white male with past medical history significant for hypertension, coronary artery disease, current everyday smoker, and alcohol abuse. He was transferred from [facility] 10/22/2023 for acute pancreatitis. He was noted to be intoxicated on arrival to outside facility, with an alcohol level of 34 mg/dL. He required ICU admission for Precedex infusion. He was also noted to have severely elevated lipase and amylase levels. An abdominal and pelvis CT was performed, which identified peripancreatic inflammatory stranding and fluid consistent with acute pancreatitis. No pseudocyst, abscess, or pancreatic necrosis. No gallstones or ductal dilation. There was decreased attenuation of the hepatic parenchyma, suggestive of fatty infiltration. Patient was dehdydrated and noted to have sustained an WILFRIDO. It appears he was fluid resuscitated with 2 L of crystalloid fluid. He was then transferred to [facility]. CBC from yesterday: WBC count 7.6, hemoglobin 13.9, hematocrit 42, platelets 110. Most recent CMP from yesterday: Sodium 138, potassium 4.4, chloride 108, serum bicarb 19, BUN 18, creatinine 1.13, glucose 94. AST 97, ALT 74, ALP 156, total bilirubin 1. Lipase 11,329 and amylase 1468. Patient is currently lethargic and not making much sense when talking. Unsure of when last drink was. Precedex is infusing at 0.4 mcg/kg/h. He does have bilateral upper extremity soft restraints on, which likely can be discontinued. Blood pressure is noted to be hypertensive, has received a clonidine 0.2 mg patch, which is fallen off and will be replaced. EKG shows normal sinus rhythm without any obv ious acute ischemic changes. Patient's pain appears well-managed with current regimen of as needed Dilaudid. He does have some facial grimacing with palpation of the bilateral upper abdomen. Normal saline is infusing at 150 MLS per hour. Currently on room air, in no acute respiratory distress. Afebrile. He has been moved to room 262 in the intensive care unit. -- Plan of care was discussed with patient's mother; reports she was told by family noticed that patient is now qualifying for hospice/palliative care -- Patient condition discussed in great detail; electric utility lineworker recommendations disc ussed with patient also; no plan to consult hospice or palliative care at this time 11/04/2023 Patient is seen and evaluated in room at bedside; discussed with nursing staff; no family members present in the room Patient remains on mechanical ventilator. He is on volume assist-control Blood gases show pO2 of 72, pCO2 47, pH is 7.41. Lab review shows white count 12.5, hemoglobin 9.9, hematocrit 30.3, and platelet count 357,000. Sodium 135, potassium 4.3, chlorides 102, CO2 28, BUN 19, creatinine 0.64. Glucose is 86. Phosphorus 4.7, calcium 9, magnesium 1.9. Sputum from October 25 shows evidence of Staphylococcus aureus. Chest x-ray shows bilateral small effusions, with adjacent atelectasis. -- Plan for PEG tube placement on 11/06/2023; and has been placed back on tube feeding -Intensive care service planning to wean off the fentanyl, patient has been placed on Dilaudid 1 mg every 4 hours -- Patient is status post tracheostomy; PEG tube placement rescheduled for Monday due to nonavailability of OR 11/05/2023 Patient is seen and evaluated in room at bedside; patient remains on mechanical ventilator. Settings include volume assist-control, rate 20, tidal volume 400, FiO2 50%, PEEP of 5. -- Blood gases show pO2 112, pCO2 45, pH is 7.46. The patient is getting lactated Ringer's at 20 cc an hour, propofol at 10 mcg/kg/min, and tube feedings with Nepro, at 10 cc an hour, with a goal of 19. - White count 14, hemoglobin 10.5, hematocrit 31.8, and platelet count 365,000. Sodium 137, potassium 3.7, chlorides 103, CO2 31, BUN 16, creatinine 0.69. Calcium is 9.2. Magnesium 1.9. Sputum from the was positive for Staphylococcus aureus. The patient has completed his antibiotics. Chest x-ray shows bilateral patchy infiltrates, which could be on the basis of fluid, and or pneumonia. 11/18/2023 --patient is seen and evaluated in room at bedside; remains in the ICU. Patient is doing well he is on trach collar/room air, continues to have lots of secretions being suctioned easily. Vital signs are reviewed and stable with temperature of 99.2, pulse 80, re spirations 16 and blood pressure 122/91 -- Remains on cefepime, patient seems to be calm and not in any distress. Chest x-ray is showing significant improvement compared to previous x-rays, he has mi nimal patchy areas of atelectasis, doubt infiltrate mostly in the left lower lobe area WBC count is 8.7 hemoglobin is 10 basic metabolic profile is normal and renal profile is normal. Transfer patient to regular medical floor; intensive care team recommending to discontinue antibiotics director emergency services to see for placement 11/19/2023 Patient is seen and evaluated in room at bedside; discussed with nursing staff; no new complaints reported Vital signs are stable with temperature of 98.7, pulse 1 2, respiration 20, blood pressure 93/60 -- Patient is status post tracheostomy and PEG tube placement; continue with tracheostomy and PEG tube care -- PT OT in place; patient will likely need placement 11/21/2023 Patient awake and alert Participating with physical therapy and follows command Patient s/p recommend PEG tube Ncefepime for pneumonia. However it was discontinued today. Will going to monitor while off antibiotic Patient on multiple psych medication being tapered off Librium 20 mg 3 times daily down to 10 mg 4 times daily. With the psychiatrist recommend to taper it of Decrease dose of Seroquel 25 mg from 50 mg. Continue the Prolixin as needed for agitation Sitter at bedside 11/22/2023 Patient mentation today significantly improved, almost back to baseline, he is awake and alert communicative and follows command, he is nonverbal, s/p tracheostomy His mentation improved after lowering sedatives, Librium 20 mg down to 10 mg every 6 hours, we are going to decrease frequency to 3 times daily from tomorrow Seroquel 25 mg added for control of agitation Remains on Protonix Antibiotics discontinued Will keep monitoring closely 11/23/2023 Patient mentation is improving after tapering down his Librium currently 10 mg 3 times daily Patient remains on trach collar No other new complaint plan for discharge to LTAC pending insurance authorization Patient generally doing well He could communicate through writing and he told me he has no pain and that he feels he is ready to go to rehab I explained for the patient that we are waiting for insurance patient to go to LTAC and he showed understanding Objective - Vital Signs Vital signs: Vital Signs Temp 97.4 F L 11/24/23 12:45 Pulse 79 11/24/23 12:45 Resp 18 11/24/23 12:45 BP 137/90 11/24/23 12:45 Pulse Ox 94 L 11/24/23 12:45 FiO2 28 11/24/23 08:10 Intake & Output 11/23/23 11/24/23 11/24/23 18:59 06:59 18:59 Weight 64 kg Other: Voiding Method Urinal Urinal Urinal Diaper Diaper Diaper Incontinent Incontinent Incontinent # Voids 2 ABP, PAP, CO, CI - Last Documented Arterial Blood Pressure 134/82 - Exam -GENERAL: The patient is drowsy, follow commands HEENT: Pupils are round and equally reacting to light. EOMI. No scleral icterus. No conjunctival pallor. Normocephalic, atraumatic. No pharyngeal erythema. No thyromegaly. CARDIOVASCULAR: S1 and S2 present. No murmurs, rubs, or gallops. -PULMONARY: Chest is clear to auscultation, no wheezing , no crackles. Tr acheostomy tube in place -ABDOMEN: Soft, nontender, nondistended, normoactive bowel sounds. No palpable organomegaly. PEG tube in place MUSCULOSKELETAL: No joint swelling or deformity. EXTREMITIES: No cyanosis, clubbing, or pedal edema. NEUROLOGICAL: Gross neurological examination did not reveal any focal deficits. SKIN: No rashes. no petechiae. - Labs CBC & Chem 7: 11/18/23 13:07 11/18/23 13:07 Labs: Abnormal Lab Results - Last 24 Hours (Table) 11/24/23 Range/Units 01:28 POC Glucose (mg/dL) 119 H (70-110) mg/dL Assessment and Plan Assessment: Altered mental status secondary to metabolic/toxic encephalopathy Acute hypoxemic respiratory failure second alcohol withdrawal symptoms and DTs currently intubated and on mechanical ventilator since October 26, 2023 Acute alcohol withdrawal symptoms and DTs Uncontrolled hypertension. Improved now. Acute pancreatitis likely alcohol-related Acute kidney injury likely prerenal improved now. Severe alcohol abuse Mild transaminitis improved History of coronary disease Currently everyday smoker Plan: cefepime was discontinued per ID team and keep monitoring while off antibiotic Continue with Librium and other psych medication. Taper dose of Librium per psychiatrist.. Seroquel dose lowered to 50 down to 25 mg Continue with Protonix Several consultants on the case ID, pulmonary, psychiatry and general surgery Labs and medication were reviewed.. Continue same treatment. Continue with symptomatic treatment. Resume home medication. Monitor labs and vitals. DVT and GI prophylaxis. Further recommendations as per clinical course of the patient DVT prophylaxis: Subcutaneous Lovenox GI Prophylaxis: Ppi Prognosis is guarded Restricted sedative, taper off gradually Possible discharge in 24 to 48 hours if he keeps improving
--- NOTE | 2023-11-25 23:42 | P.PN ---
Subjective 48-year-old white male with past medical history significant for hypertension, coronary artery disease, current everyday smoker, and alcohol abuse. He was transferred from [facility] 10/22/2023 for acute pancreatitis. He was noted to be intoxicated on arrival to outside facility, with an alcohol level of 34 mg/dL. He required ICU admission for Precedex infusion. He was also noted to have severely elevated lipase and amylase levels. An abdominal and pelvis CT was performed, which identified peripancreatic inflammatory stranding and fluid consistent with acute pancreatitis. No pseudocyst, abscess, or pancreatic necrosis. No gallstones or ductal dilation. There was decreased attenuation of the hepatic parenchyma, suggestive of fatty infiltration. Patient was dehdydrated and noted to have sustained an WILFRIDO. It appears he was fluid resuscitated with 2 L of crystalloid fluid. He was then transferred to [facility]. CBC from yesterday: WBC count 7.6, hemoglobin 13.9, hematocrit 42, platelets 110. Most recent CMP from yesterday: Sodium 138, potassium 4.4, chloride 108, serum bicarb 19, BUN 18, creatinine 1.13, glucose 94. AST 97, ALT 74, ALP 156, total bilirubin 1. Lipase 11,329 and amylase 1468. Patient is currently lethargic and not making much sense when talking. Unsure of when last drink was. Precedex is infusing at 0.4 mcg/kg/h. He does have bilateral upper extremity soft restraints on, which likely can be discontinued. Blood pressure is noted to be hypertensive, has received a clonidine 0.2 mg patch, which is fallen off and will be replaced. EKG shows normal sinus rhythm without any obv ious acute ischemic changes. Patient's pain appears well-managed with current regimen of as needed Dilaudid. He does have some facial grimacing with palpation of the bilateral upper abdomen. Normal saline is infusing at 150 MLS per hour. Currently on room air, in no acute respiratory distress. Afebrile. He has been moved to room 262 in the intensive care unit. -- Plan of care was discussed with patient's mother; reports she was told by family noticed that patient is now qualifying for hospice/palliative care -- Patient condition discussed in great detail; parish nurse recommendations disc ussed with patient also; no plan to consult hospice or palliative care at this time 11/04/2023 Patient is seen and evaluated in room at bedside; discussed with nursing staff; no family members present in the room Patient remains on mechanical ventilator. He is on volume assist-control Blood gases show pO2 of 72, pCO2 47, pH is 7.41. Lab review shows white count 12.5, hemoglobin 9.9, hematocrit 30.3, and platelet count 357,000. Sodium 135, potassium 4.3, chlorides 102, CO2 28, BUN 19, creatinine 0.64. Glucose is 86. Phosphorus 4.7, calcium 9, magnesium 1.9. Sputum from October 25 shows evidence of Staphylococcus aureus. Chest x-ray shows bilateral small effusions, with adjacent atelectasis. -- Plan for PEG tube placement on 11/06/2023; and has been placed back on tube feeding -Intensive care service planning to wean off the fentanyl, patient has been placed on Dilaudid 1 mg every 4 hours -- Patient is status post tracheostomy; PEG tube placement rescheduled for Monday due to nonavailability of OR 11/05/2023 Patient is seen and evaluated in room at bedside; patient remains on mechanical ventilator. Settings include volume assist-control, rate 20, tidal volume 400, FiO2 50%, PEEP of 5. -- Blood gases show pO2 112, pCO2 45, pH is 7.46. The patient is getting lactated Ringer's at 20 cc an hour, propofol at 10 mcg/kg/min, and tube feedings with Nepro, at 10 cc an hour, with a goal of 19. - White count 14, hemoglobin 10.5, hematocrit 31.8, and platelet count 365,000. Sodium 137, potassium 3.7, chlorides 103, CO2 31, BUN 16, creatinine 0.69. Calcium is 9.2. Magnesium 1.9. Sputum from the was positive for Staphylococcus aureus. The patient has completed his antibiotics. Chest x-ray shows bilateral patchy infiltrates, which could be on the basis of fluid, and or pneumonia. 11/18/2023 --patient is seen and evaluated in room at bedside; remains in the ICU. Patient is doing well he is on trach collar/room air, continues to have lots of secretions being suctioned easily. Vital signs are reviewed and stable with temperature of 99.2, pulse 80, re spirations 16 and blood pressure 122/91 -- Remains on cefepime, patient seems to be calm and not in any distress. Chest x-ray is showing significant improvement compared to previous x-rays, he has mi nimal patchy areas of atelectasis, doubt infiltrate mostly in the left lower lobe area WBC count is 8.7 hemoglobin is 10 basic metabolic profile is normal and renal profile is normal. Transfer patient to regular medical floor; intensive care team recommending to discontinue antibiotics business services clerk to see for placement 11/19/2023 Patient is seen and evaluated in room at bedside; discussed with nursing staff; no new complaints reported Vital signs are stable with temperature of 98.7, pulse 1 2, respiration 20, blood pressure 93/60 -- Patient is status post tracheostomy and PEG tube placement; continue with tracheostomy and PEG tube care -- PT OT in place; patient will likely need placement 11/21/2023 Patient awake and alert Participating with physical therapy and follows command Patient s/p recommend PEG tube Ncefepime for pneumonia. However it was discontinued today. Will going to monitor while off antibiotic Patient on multiple psych medication being tapered off Librium 20 mg 3 times daily down to 10 mg 4 times daily. With the psychiatrist recommend to taper it of Decrease dose of Seroquel 25 mg from 50 mg. Continue the Prolixin as needed for agitation Sitter at bedside 11/22/2023 Patient mentation today significantly improved, almost back to baseline, he is awake and alert communicative and follows command, he is nonverbal, s/p tracheostomy His mentation improved after lowering sedatives, Librium 20 mg down to 10 mg every 6 hours, we are going to decrease frequency to 3 times daily from tomorrow Seroquel 25 mg added for control of agitation Remains on Protonix Antibiotics discontinued Will keep monitoring closely 11/23/2023 Patient mentation is improving after tapering down his Librium currently 10 mg 3 times daily Patient remains on trach collar No other new complaint plan for discharge to LTAC pending insurance authorization Patient generally doing well He could communicate through writing and he told me he has no pain and that he feels he is ready to go to rehab I explained for the patient that we are waiting for insurance patient to go to LTAC and he showed understanding 11/25/2023 Patient is up in bed No new complaints Pending insurance authorization Objective - Vital Signs Vital signs: Vital Signs Temp 97.7 F 11/25/23 14:00 Pulse 82 11/25/23 20:08 Resp 16 11/25/23 14:00 BP 118/67 11/25/23 14:00 Pulse Ox 95 11/25/23 14:00 FiO2 28 11/25/23 20:08 Intake & Output 11/25/23 11/25/23 11/26/23 06:59 18:59 06:59 Intake Total 565 576 Output Total 400 Balance 565 176 Weight 63.5 kg Intake: Oral 0 Tube Feeding 565 576 Output: Urine 400 Other: Voiding Method Urinal Diaper Incontinent # Voids 3 ABP, PAP, CO, CI - Last Documented Arterial Blood Pressure 134/82 - Exam -GENERAL: The patient is drowsy, follow commands HEENT: Pupils are round and equally reacting to light. EOMI. No scleral icterus. No conjunctival pallor. Normocephalic, atraumatic. No pharyngeal erythema. No thyromegaly. CARDIOVASCULAR: S1 and S2 present. No murmurs, rubs, or gallops. -PULMONARY: Chest is clear to auscultation, no wheezing , no crackles. Tracheostomy tube in place -ABDOMEN: Soft, nontender, nondistended, normoactive bowel sounds. No palpable organomegaly. PEG tube in place MUSCULOSKELETAL: No joint swelling or deformity. EXTREMITIES: No cyanosis, clubbing, or pedal edema. NEUROLOGICAL: Gross neurological examination did not reveal any focal deficits. SKIN: No rashes. no petechiae. - Labs CBC & Chem 7: 11/18/23 13:07 11/18/23 13:07 Assessment and Plan Assessment: Altered mental status secondary to metabolic/toxic encephalopathy Acute hypoxemic respiratory failure second alcohol withdrawal symptoms and DTs currently intubated and on mechanical ventilator since October 26, 2023 Acute alcohol withdrawal symptoms and DTs Uncontrolled hypertension. Improved now. Acute pancreatitis likely alcohol-related Acute kidney injury likely prerenal improved now. Severe alcohol abuse Mild transaminitis improved History of coronary disease Currently everyday smoker Plan: cefepime was discontinued per ID team and keep monitoring while off antibiotic Continue with Librium and other psych medication. Taper dose of Librium per psychiatrist.. Seroquel dose lowered to 50 down to 25 mg Continue with Protonix Several consultants on the case ID, pulmonary, psychiatry and general surgery Labs and medication were reviewed.. Continue same treatment. Continue with symptomatic treatment. Resume home medication. Monitor labs and vitals. DVT and GI prophylaxis. Further recommendations as per clinical course of the patient DVT prophylaxis: Subcutaneous Lovenox GI Prophylaxis: Ppi Prognosis is guarded Restricted sedative, taper off gradually Possible discharge in 24 to 48 hours if he keeps improving
[2023-11-26 01:15] LABS: Glucose,Whole Blood 104 mg/dL (70-110)
[2023-11-26 04:50] LABS: Glucose,Whole Blood 106 mg/dL (70-110)
[2023-11-26] MEDS: IPRATROPIUM-ALBUTEROL 3 ML NEB IH STA (04:52)
--- NOTE | 2023-11-26 05:38 | P.PN ---
Subjective Progress Note Date: 11/26/23 Principal diagnosis: Respiratory failure. Patient is a 48-year-old white male with past medical history significant for hypertension, coronary artery disease, current everyday smoker, and alcohol abuse. He was transferred from [facility] 10/22/2023 for acute pancreatitis. He was noted to be intoxicated on arrival to outside facility, with an alcohol level of 34 mg/dL, while at our facility developed impending acute alcohol withdrawal delirium tremens. He required ICU admission for Precedex infusion. Patient is currently lethargic and not a very good historian . After reviewing the medical records from the outside facility, it appears he presented with abdominal pain. He was also noted to have severely elevated lipase and amylase levels. An abdominal and pelvis CT was performed, which identified peripancreatic inflammatory stranding and fluid consistent with acute pancreatitis. No pseudocyst, abscess, or pancreatic necrosis. No gallstones or ductal dilation. There was decreased attenuation of the hepatic parenchyma, suggestive of fatty infiltration. Patient was dehdydrated and noted to have sustained an WILFRIDO. It appears he was fluid resuscitated with 2 L of crystalloid fluid. He was then transferred to [facility]. He was noted to be steffany tated and combative. He had received multiple doses of Ativan, I am told a total of 16 mg. He was also receiving Haldol. Despite this, he had sustained recorded CIWA scores greater than 28, and for this reason he was placed on a Precedex infusion and admitted to the intensive care unit. Most recent CBC from yesterday: WBC count 7.6, hemoglobin 13.9, hematocrit 42, platelets 110. Most recent CMP from yesterday: Sodium 138, potassium 4.4, chloride 108, serum bicarb 19, BUN 18, creatinine 1.13, glucose 94. AST 97, ALT 74, ALP 156, total bilirubin 1. Lipase 11,329 and amylase 1468. Patient is currently lethargic and not making much sense when talking. Unsure of when last drink was. Precedex is infusing at 0.4 mcg/kg/h. He does have bilateral upper extremity soft restraints on, which likely can be discontinued. Blood pressure is noted to be hypertensive, has received a clonidine 0.2 mg patch, which is fallen off and will be replaced. EKG shows normal sinus rhythm without any obvious acute ischemic changes. Patient's pain appears well-managed with current regimen of as needed Dilaudid. He does have some facial grimacing with palpation of the bilateral upper abdomen. Normal saline is infusing at 150 MLS per hour. Currently on room air, in no acute respiratory distress. Afebrile. He has been moved to room 262 in the intensive care unit. Patient was evaluated today on 10/25/2023, remains in the ICU, remains on Precedex at 1 mcg/kg/h. Remains on Cleviprex. Remains on Ativan intermittently and on Haldol. In spite of all of this the patient continues to have episodes of extreme agitation and restlessness. And seems to be delirious. Continues to have a sitter at bedside. His WBC is 7.8 hemoglobin 11.3 basic metabolic profile is normal renal profile is normal however his bicarb is 15, lipase is down to 164 today, it was 1668 yesterday, amylase is down to 112 from 598 yesterday obviously his acute pancreatitis is improving chest x-ray showed no evidence of active disease, minimal pulmonary vascular prominence Reevaluate today on 10/26/2023, patient remains in the ICU, he is on room air, continues to have intermittent episodes of extreme agitation, remains on Precedex at 1.4 mcg/kg/h, remains on Ativan intermittently and Haldol intermittently, nonetheless continues to have episodes of significant agitations. Patient is on the CIWA protocol, he seems to require suctioning of his oropharynx, purulent material is noted, patient does have gag with sucti oning and able to protect his airways. But he has a very poor cough reflex. At any rate patient will need to be on oral medications, and I am recommending a nasogastric tube to be placed today, if the patient continues to do poorly may have to consider intubation and mechanical ventilation, however this will be the last resort. In the meantime I believe the patient will remain on the same medications he is presently on and will remain on the CIWA protocol. Needs definitely close monitoring in the ICU. Patient is purulent secretions I recommended empirically starting the patient on Zosyn. WBC count is 7.4 hemoglobin 11.3 basic metabolic profile is normal except for low potassium of 3.2 renal profile is normal lipase is down to 72 amylase is normal Patient was reevaluated today on 10/27/2023, patient received significant amount of sedation yesterday, and continued to be restless and agitated, at 1 point he desaturated, and he was gurgling with secretions, I was made aware of the clarisa trevino and recommended intubation. Patient was intubated and placed on mechanical ventilation overnight, he is on assist-control rate of 20 tidal volume 400 FiO2 40% and PEEP of 5 ABG showed a pO2 of 131 pCO2 34 pH of 7.30 hence kept on the same ventilator settings. He is on propofol at 65 mcg/kg/min is also 1.9 normal saline at 125 cc/h. Patient is receiving bicarb orally for low bicarb. He is also on Zosyn empirically. Patient is also on enteral feeding. Today I went ahead and placed a right radial arterial line for hemodynamic monitoring and for frequent blood draws. WBC count is 5.9 hemoglobin is 9.4. Basic metabolic profile is normal except for bicarb of 14 patient has a hyperchloremic metabolic none anion gap metabolic acidosis. Chest x-ray showed pulmonary vascular congestion, patient received a dose of Lasix earlier this morning Patient was reevaluated today on 10/28/2023, remains in the ICU, intubated and mechanically ventilated. Patient is on assist-control rate of 20 tidal volume 400 FiO2 40% PEEP of 5 ABG showed a pO2 of 160 pCO2 37 pH of 7.34, I cut down his FiO2 down to 35%. Patient is receiving propofol at 55 mcg/kg/min, he is off norepinephrine, receiving 0.9 normal saline at 125 cc/h. Continues to have intermittent episodes of coffee-ground material in the nasogastric tube, hence nutrition/enteral feeding is presently on hold. Chest x-ray is showing some minimal vascular congestion along with small effusions and atelectasis patient remains on Zosyn empirically, he will receive Lasix 1 dose today 20 mg IV push. Patient continues to have significant amount of secretions he was given a trial off sedation patient was agitated, restless, and again significant amount of secretions were noted in the endotracheal tube, hence will hold on weaning today and extubation. WBC count is 3.8 hemoglobin 8.9. Basic metabolic profile is normal, renal profile is normal Patient was reevaluated today on 10/29/2019, remains in the ICU, intubated and mechanically ventilated. Patient was extremely restless and agitated last night on lower dose of sedation, hence his propofol was increased to as high as 70 mcg/kg/min at present. He is requiring Cleviprex at 10 mg/h for tachycardia. He is on IV fluid 0.9 normal saline at 125 cc/h. Continues to have lots of secretions via the endotracheal tube. Patient is to be restarted back on tube feeding, his positioning of the endotracheal tube and nasogastric tube will be adjusted today. Remains on Zosyn his vent settings are 20/400/35%/5 ABG showed a pO2 of 78 pCO2 34 pH of 7.37 chest x-ray today is noted to show mid and lower lung opacities, slightly increased and small pleural effusions. Patient has atelectasis, and may have a component of fluid overload, will continue intermittent diuresis on this patient, patient did receive 40 mg of Lasix IV push today. Cardiogram on this admission showed good LV function ejection fraction of 55 to 60%, and no evidence of valvular heart disease Progress note dated October 30, 2023. This is a 48-year-old male who was admitted on October 21. He came into the hospital, with alcohol withdrawal syndrome. The patient was intubated on October 25 for respiratory failure. He remains on the ventilator. Settings include volume assist-control, rate 20, tidal volume 400, FiO2 35%, with a PEEP of 5. Blood gases show pO2 of 87, pCO2 of 39, pH is 7.43. The patient is on Cleviprex at 1 mg an hour, propofol at 60 mcg/kg/min, saline at KVO, and saline at 30 cc an hour. The patient continues on Zosyn. The patient's sputum revealed evidence of methicillin sensitive Staph aureus. White count is 5.7, hemoglobin 10.1, hematocrit 31.4, and platelet count was 231,000. Sodium 140, potassium 3.4, chlorides 111, CO2 25, BUN 6, creatinine 0.55. Glucose 103. AST 14. Ammonia level was normal. Chest x-ray shows bilateral interstitial and patchy opacities. Progress note dated October 31, 2023. This is a 48-year-old male who was admitted on October 21. He came into the hospital, with alcohol withdrawal syndrome. The patient was intubated on October 25 for respiratory failure. He remains on the ventilator. Current ventilator settings include volume assist-control, rate 20, tidal volume 400, FiO2 35%, PEEP of 5. Blood gases show pO2 of 88, pCO2 46, pH is 7.46. The patient is getting propofol at 70 mcg/kg/min, Cleviprex at 2 mg an hour, and Nepro tube fe edings at 19 cc an hour, which is goal. Today, we will add amlodipine at 5 mg an hour for better blood pressure control, and the patient continues on Zosyn, for staphylococci in the sputum. White count 7.2, hemoglobin 10.2, hematocrit 31, and platelet count was normal. Sodium 140, potassium 3.9, chlorides 106, CO2 31, BUN 8, creatinine 0.52. Glucose is 120. Calcium 8.8. Patient's chest x-ray shows a stable exam with small bilateral pleural effusions, and adjacent atelectasis. Progress note dated November 01, 2023. 48-year-old male who was admitted on October 21. He came to the hospital with alcohol withdrawal syndrome. The patient was intubated on October 25, for respiratory failure. He remains on the ventilator. Settings include volume assist-control, rate 20, tidal volume 400, FiO2 35%, and PEEP of 5. Blood gases show pO2 74, pCO2 45, pH is 7.47. He is on propofol at 70 mcg/kg/min, and Cleviprex at 4 mg an hour. The patient is getting saline at 50 cc an hour. He is also getting tube feedings with Nepro at 27 cc an hour, which is goal. Residuals were high. We added Reglan 10 mg every 6. In addition, because of failure to wean from mechanical ventilation, the patient will have a surgical consultation for possible tracheostomy and PEG tube placement. Current labs include a white count 6.7, hemoglobin 10, hematocrit 30.9, and a platelet count of 305,000. Sodium 139, potassium 3.9, chlorides 106, CO2 31, BUN 11, creatinine 0.62. Glucose is 109. Calcium is 9.1. Sputum from October 25 was positive for Staphylococcus aureus. Chest x-ray is largely unchanged. Progress note dated November 02, 2023. The patient is seen today in room 262. 48-year-old male admitted on October 21. He came into the hospital with alcohol withdrawal syndrome. He was intubated for respiratory failure on October 26, 2023. He remains on the ventilator. Ventilator settings include volume assist-control, rate 20, tidal volume 400, FiO2 35%, and PEEP of 5. Blood gases show pO2 106, pCO2 49, pH is 7.43. The patient is on saline at 20 cc an hour, propofol at 60 mcg/kg/min, and fentanyl 1 mcg/kg/h. He is getting Zosyn IV. The patient is scheduled to have a possible tracheostomy and PEG tube placement today. White count is 8.1, hemoglobin 9.8, hematocrit 29.3, platelet count normal. Sodium 140, potassium 3.9, chlorides 109, CO2 31, BUN 13, creatinine 0.73. Glucose is 96. Calcium 9.1. Sputum Gram stain from 418, showed evidence of Staphylococcus aureus. Chest x-ray shows b ilateral lung opacities. Chest x-ray is essentially unchanged. Progress note dated November 03, 2023. The patient is seen today again in room 262. The patient remains on mechanical ventilator. Ventilator settings include volume assist-control, rate 20, tidal volume 400, FiO2 35%, PEEP of 5. Blood gases show pO2 of 83, pCO2 48, pH of 7.41. The patient continues on propofol at 60 mcg/kg/min, fentanyl at 1 mcg/kg/h, and saline at 10 cc an hour. Tube feedings are on hold, for possible PEG tube placement today, November 02. The patient did have a tracheostomy performed on November 01. I am going to add Dilaudid 1 mg every 6 hours, to his regimen, to see if we can get him off the fentanyl drip. White count 10.8, hemoglobin 10.6, macro 33, with a normal platelet count. Sodium 137, potassium 4.2, chlorides 104, CO2 30, BUN 14, creatinine 0.74. Albumin is 2.8. Glucose is 76. Sputum on October 25 was positive for Staphylococcus aureus. Chest x-ray shows the presence of a tracheostomy tube. Bilateral infiltrates, appear improved. Progress note dated November 04, 2023. This is a 48-year-old male seen today in room 62. The patient remains on mechanical ventilator. He is on volume assist-control, rate 20, tidal volume 400, FiO2 50%, and PEEP of 5. Blood gases show pO2 of 72, pCO2 47, pH is 7.41. The patient continues on fentanyl and 0.5 mcg/kg/h, propofol at 40 mcg/kg/min, lactated Ringer's at 20 cc an hour. Current laboratory data includes a white count 12.5, hemoglobin 9.9, hematocrit 30.3, and platelet count 357,000. Sodium 135, potassium 4.3, chlorides 102, CO2 28, BUN 19, creatinine 0.64. Glucose is 86. Phosphorus 4.7, calcium 9, magnesium 1.9. Sputum from October 25 shows evidence of Staphylococcus aureus. Chest x-ray shows bilateral small effusions, with adjacent atelectasis. Progress note dated November 05, 2023. 48-year-old male seen again in room 262. The patient remains on mechanical ventilator. Settings include volume assist-control, rate 20, tidal volume 400, FiO2 50%, PEEP of 5. Blood gases show pO2 112, pCO2 45, pH is 7.46. The patient is getting lactated Ringer's at 20 cc an hour, propofol at 10 mcg/kg/min, and tube feedings with Nepro, at 10 cc an hour, with a goal of 19. The patient is currently not on any antibiotics. We will attempt a daily interruption of sedation, and spontaneous breathing trial today, with a CPAP of 5, and pressure support of 5. White count 14, hemoglobin 10.5, hematocrit 31.8, and platelet count 365,000. Sodium 137, potassium 3.7, chlorides 103, CO2 31, BUN 16, creatinine 0.69. Calcium is 9.2. Magnesium 1.9. Sputum from the was positive for Staphylococcus aureus. The patient has completed his anti biotics. Chest x-ray shows bilateral patchy infiltrates, which could be on the basis of fluid, and or pneumonia. On today's evaluation of 11/06/2023, the patient is being seen for a follow-up. This is a 48-year-old male patient with known history of a complicated alcoholism with history of alcoholic pancreatitis and delirium. The patient is post acute hypoxic respiratory failure due to his comorbidities and the patient was difficult to extubate. The patient required mechanical ventilation on 10/26/2023 and ultimately the patient was given a tracheostomy tube on 11/02/2023. He still has an NG tube in place and the patient is going to undergo a PEG tube insertion today. On today's evaluation, the patient is on propofol running at 40 mcg/kg/min. The patient is n.p.o. awaiting PEG tube insertion. There is an NG tube in place. IV fluids are in the form of normal saline at rate of 20 cc an hour. Is on assist-control mode of mechanical ventilation at rate of 20, tidal volume of 400, FiO2 of 50% with a PEEP of 5. His sputum was positive for MSSA and the patient completed a course of IV Zosyn. He has a arterial line in the right upper extremity. Fluid balance is -837 cc over the past 24 hours. Blood gas from today shows a pH of 7.44 with a pCO2 of 47 and pO2 of 94. The white cell count at 9 with a hemoglobin 9.2 and a platelet count of 383. The rest of the electrolytes are all stable. BUN is at 40 with a creatinine of 0.7 and the blood sugar is 93 from this morning. The chest x-ray shows basilar infiltrate and a small effusion otherwise the findings are essentially stable. Tracheostomy tube is in good location. No significant orotracheal secretions at this point in time. No hemodynamic instability. No hypotension. On today's evaluation of 11/07/2023, I am seeing the patient in follow-up in the intensive care unit. The patient remains intubated on the mechanical ventilator. She is currently on propofol running at 10 mcg/kg/min. The patient is on assist-control mode of mechanical ventilation at the rate of 20, tidal volume of 400, FiO2 40% with a PEEP of 5. The blood gas shows a pH of 7.47 with a pCO2 of 38 and a pO2 of 96. The patient is arousable and he is calm and comfortable. Following simple commands and moving all 4 extremities without any limitation. Chest x-ray shows some infiltration in lung bases and small bilateral pleural effusions. Nevertheless, the patient has demonstrated adequate oxygenation. As mentioned, the patient had prolonged respiratory failure and the patient has a #[address] tracheostomy tube in place. PEG tube insertion was not successful yesterday without any issues and the patient is going to be started on enteral feeding for nutritional support. Hemoglobin is at 9.8 with a platelet count of 456. BUN is 14 with a creatinine of 0.7 and a sodium levels at 137. The patient is currently on no antibiotics. The patient has completed his course of IV Zosyn. The patient is on bronchodilators [id number]. The patient has metoprolol for some sinus tachycardia and blood pressure control and a dose of 50 mg p.o. twice daily. He is also taking Seroquel 100 mg twice a day. He is on Isoptin 80 mg p.o. 3 times daily. Surgical wound site over the abdomen is dry clean and intact. On today's evaluation of 11/08/2023, the patient is being seen for a follow-up. This morning, the patient is resting comfortably in bed. No today put the patient on pressure support mode of mechanical ventilation yesterday and the patient was able to tolerate it for a total of 6 hours and following that was placed on assist-control mode, volume cycle. The same is being done today. The patient was on assist-control mode at a rate of 20 with a tidal volume of 400 and a PEEP of 5 with an FiO2 of 40%. The patient has been switched to pressure support of 7 and a PEEP of 5. The patient was also on propofol which has been weaned off and currently is off sedation. Resting comfortably in bed. He underwent a PEG tube insertion. Enteral feeding with Nepro was initiated and the patient is currently at the rate of 32 cc an hour. Abdomen slightly distended. No bowel movement activity yet. The patient remains on Reglan. Fluid balance is ordered of -730 cc over the past 24 hours and the patient is receiving lactated Ringer at rate of 20 cc an hour. WBC count is 11.6 with a hemoglobin 9.7 and a platelet count of 424. Blood gas from this morning showed a pH of 7.45 with a pCO2 of 46 and pO2 of 102. BUN is 16 with a creatinine of 0.8 and a sodium levels at 138. Chest x-ray from today is essentially un changed. The patient continues to have bilateral infiltrates and small effusions, essentially unchanged over the past 1 week. He is arousable. He follows simple commands. No significant agitation at this point in time. Progress note dated November 09, 2023. The patient is seen today in room 262. The patient is currently on pressure support of 7, CPAP of 5, and 40% FiO2. He is getting lactated Ringer's at 20 cc an hour. He is receiving Nepro tube feedings at 32 cc an hour, which is goal. The patient appears much more awake and alert. According to the nurse, the patient had an uneventful night. Current labs include a white count 12.4, hemoglobin 9.2, hematocrit 29.6, and a normal platelet count. A blood gas this morning shows a pO2 of 99, pCO2 of 47, pH is 7.46. Sodium 138, potassium 4.1, chlorides 102, CO2 31, BUN 15, creatinine 0.76. Glucose is 112. Calcium is 9.5. Magnesium is 1.9. Sputum from October 25 was positive for Staphylococcus aureus. Chest x-ray shows a midline tracheostomy tube. The patient has bibasilar infiltrates or atelectasis. The patient is seen today November 20, 2023 in follow-up on the regular medical floor. The patient has been here for 28 days. He had alcohol withdrawal syndrome eventually requiring intubation and mechanical ventilatory support wh ich was quite prolonged. He had a tracheostomy tube as well as a PEG tube placed. He is currently maintaining O2 saturations in the 90s on 35% trach collar. He is being nourished with Nepro at 47 MLS per hour which is his goal. The patient does have lKlebsiella pneumoniae and methicillin sensitive Staphylococcus aureus in his sputum. Blood cultures revealed no growth. Glucose 105. He remains on cefepime, bronchodilators. Remains on IV diuretics. Lovenox for DVT prophylaxis. Currently in a negative balance. The patient is seen today November 21, 2023 in follow-up on the regular medical fl oor. He is awake and alert in no acute distress. He is maintaining good O2 saturation in the mid 90s on 28% FiO2 via trach collar. Initial sputum culture was positive for MSSA and Klebsiella pneumoniae. Blood sugar 116. He remains on cefepime. Continued on bronchodilators. Lovenox for DVT prophylaxis. He is awaiting placement in either high skilled extended-care facility or long-term acute care facility. The patient is seen today November 22, 2023 in follow-up on the regular medical floor. He is sitting up in bed. Awake and alert in no acute distress. He is maintaining O2 saturations in the 90s on 28% trach collar. He has normal saline at 20 MLS per hour. He is being nourished with Nepro at 47 mL/h. He remains on bronchodilators. Lovenox for DVT prophylaxis. The patient is seen today November 23, 2023 in follow-up on the regular medical floor. He is resting in bed. Awake and alert. Maintaining O2 saturations in the 90s on 28% trach collar. He is being nursed with Nepro at 47 MLS per hour. Continues with some few scattered rhonchi. Sputum culture from November 11, 2023 has been positive for Staphylococcus aureus and Klebsiella pneumoniae. He has completed antibiotics. Continued on DuoNeb ventilations. Lovenox for DVT prophylaxis. The patient is seen today November 24, 2023 in follow-up on the regular medical floor. He is sitting up in bed. Awake and alert in no acute distress. Continues to maintain good O2 saturations in the 90s on 28% trach collar. Being nourished with Nepro at 47 mL/h. Glucose 99. He remains on bronchodilators. Lovenox for DVT prophylaxis. Awaiting transfer to LTAC or subacute rehabilitation. The patient is seen today November 25, 2023 in follow-up on the regular medical floor. He is awake and alert in no acute distress. Apparently he has been trying to climb out of bed. There is a safety instruction police officer at the bedside. He is still awaiting placement at [facility] once the insurance authorization has been completed. His blood glucose is 99 he remains on Nepro at 47 mL/h. He is receiving 0.9 normal saline at O. He is maintaining O2 saturations in the 90s on 28% trach collar. Progress note dated November 26, 2023. The patient is seen again in room 525. Today is hospital day #34. He is awake and alert. He is in no distress. The patient gets agitated from time to time, and does try to crawl out of bed. There is a safety instruction police officer at the bedside. He continues on saline at 10 cc an hour. He is also got his trach collar set at 28%. Tube feedings are with Nepro, at 47 cc an hour. I did call and speak to his mother yesterday. She has some questions about his respiratory status. I answered all his questions. The patient is to be discharged to a long-term acute care facility, awaiting insurance authorization. Objective - Vital Signs Vital signs: Vital Signs Temp 97.7 F 11/26/23 01:55 Pulse 87 11/26/23 05:04 Resp 18 11/26/23 01:55 BP 145/98 11/26/23 03:26 Pulse Ox 99 11/26/23 03:26 FiO2 28 11/25/23 20:08 Intake & Output 11/25/23 11/25/23 11/26/23 06:59 18:59 06:59 Intake Total 565 576 Output Total 400 200 Balance 565 176 -200 Weight 63.5 kg 65 kg Intake: Oral 0 Tube Feeding 565 576 Output: Urine 400 200 Other: Voiding Method Urinal Diaper Incontinent # Voids 3 2 ABP, PAP, CO, CI - Last Documented Arterial Blood Pressure 134/82 - Exam No acute distress, with a midline tracheostomy tube. HEENT examination is grossly unremarkable. Neck supple. Full range of motion. No adenopathy thyromegaly or neck vein distention. Cardiovascular examination reveals regular rhythm rate. S1-S2 normal. No S3 or S4. No discernible murmur noted. Heart sounds are distant. Heart rate 87 bpm. Lungs reveal scattered bilateral rhonchi. No wheezes or crackles. Breath sounds equal. Saturations are 99 %. Abdomen soft, with bowel sounds. PEG tube is noted. Extremities are intact. No cyanosis clubbing or edema. Skin is without rash or lesion. Neurologic examination reveals the patient to awake and alert. - Labs CBC & Chem 7: 11/18/23 13:07 11/18/23 13:07 Assessment and Plan Assessment: Acute hypoxemic respiratory failure, secondary to acute alcohol withdrawal syndrome, status post intubation and mechanical ventilation, on October 26, 2023. S/P tracheostomy tube insertion, November 02, 2023, and PEG tube placement, November 06, 2023. Prolonged respiratory failure requiring tracheostomy tube insertion. Acute alcohol withdrawal with acute alcohol intoxication. Acute alcoholic pancreatitis. Hypertensive urgency. Abdominal pain, secondary to pancreatitis, recovered. Acute kidney injury. History of alcoholism. Mild transaminitis. History of coronary artery disease. Current everyday smoker. Sinus tachycardia Plan: Plan dated October 30, 2023. The patient continues on Zosyn for his methicillin sensitive Staph aureus in the sputum. Labs, x-rays, medications are reviewed. The patient's overall prognosis remains guarded. The patient has had a daily interruption of sedation, becomes very agitated. We will continue to follow make recommendations along the way. Prognosis is certainly guarded. No additional recommendations at this time. Plan dated October 31, 2023. The patient remains on Zosyn, for his methicillin sensitive Staph aureus infection in the sputum/lung. Labs, x-rays, and medications are all reviewed. The patient's overall condition remains very guarded. If he does not show any progress towards weaning and extubation, by the end of the week, the patient may end up with a tracheostomy tube, and a PEG tube. We will continue to follow make recommendations along the way. Today we added amlodipine at 5 mg/day, to see if we can wean the patient off the Cleviprex. Patient continues on propofol. The patient also continues on Zosyn. Additional recommendations and suggestions are forthcoming. Plan dated November 01, 2023. The patient is seen today in room 262. The patient is on propofol, Cleviprex, and saline. In addition, tube feedings are currently on hold because of high residuals. Reglan will be added to the regimen. In addition, for some additional comfort for the patient, we will add fentanyl drip, at 1 mcg/kg/h, to start. In addition, we asked surgery to see the patient for possible tracheostomy and PEG tube placement. Labs, x-rays, medications are reviewed. The patient's overall prognosis remains extremely guarded. We will continue to follow, make recommendations along the way. The patient continues on Zosyn. Plan dated November 02, 2023. The patient remains on propofol at 60 mcg/kg/min, and fentanyl at 1 mcg/kg/h. The patient also continues on Zosyn. The patient is scheduled for tracheostomy and PEG tube placement today. Blood gases show pO2 of 106, pCO2 of 49, pH is 7.43. Labs, x-rays, and medications are reviewed. We will continue to follow the patient, make recommendations along the way. The patient's overall prognosis remains very guarded. Plan dated November 03, 2023. The patient is seen today in room 262. The patient had a tracheostomy tube placed yesterday, November 01. The patient is n.p.o., for possible PEG tube placement, today. The patient continues on propofol and fentanyl. We will add some Dilaudid to the regimen, to see if we can wean the fentanyl off completely. Labs, x-rays, and medications are reviewed. Blood gases are reasonable with a pO2 of 83, pCO2 of 48, pH is 7.41. We will continue to follow the patient, and make recommendations along the way. Prognosis is certainly guarded. Plan dated November 04, 2023. The patient's PEG tube will likely be inserted on November 05. We will resume tube feedings in the interim. In addition, we increased his Dilaudid to 1 mg every 4 hours, to see if we can wean off the fentanyl. Labs, x-rays, and medications are reviewed. We will continue to follow make recommendations along the way. The patient's overall prognosis remains guarded. Hopefully, we will be able to get this patient extubated. Plan dated November 05, 2023. The patient appears to be doing reasonably well. He appears to be stable. He continues on propofol at 10 mcg/kg/min. He is receiving tube feedings. The patient is scheduled to have a PEG tube placed tomorrow. The patient will go for a daily interruption of sedation, and spontaneous breathing trial today, on 5 4 support, 5 with CPAP. The patient has completed his antibiotics. Blood gases show pO2 112, pCO2 45, pH is 7.46. Labs, x-rays, and medications are reviewed. We will continue to follow the patient, and make recommendations along the way. The patient's overall prognosis remains very guarded. Plan dated November 08, 2022. The patient was converted to pressure support and CPAP, with settings of 7 and 5 cm of water respectively, and the patient appears to be doing well. Blood gases are very reasonable. Patient continues on enteral nutrition, at goal, with Nepro, at 32 cc an hour. He is postop day #3, status post PEG tube placement. He continues on Seroquel for delirium and agitation. Currently, his hemodynamics are stable and he does not require any vasopressors. He continues on Lovenox for DVT prophylaxis. He continues on GI prophylaxis. Labs, x-rays, medications are reviewed. The patient is currently being evaluated for transfer to select specialty. Prognosis is guarded. Plan dated November 26, 2023. The patient was seen and evaluated, in room 525. The patient remains about the same. Most of the time, he is relatively calm, but occasionally, he has intermittent episodes of agitation, and confusion. The patient has had a safety instruction police officer at the bedside the entire week. He continues on 28% trach collar. He continues tube feedings with Nepro, at 47 cc an hour. The patient is also getting saline at 10 cc an hour. Labs, x-rays, medications are reviewed. I did take the time to speak to the mother yesterday, and gave her an update. The patient is scheduled to go to a long-term acute care facility in the near future. We are awaiting insurance authorization. The patient still has a fair amount of secretions, so I did not decannulate the patient at this time. Additional recommendations and suggestions are forthcoming. Time with Patient: Less than 30
--- NOTE | 2023-11-26 05:47 | XR ---
EXAMINATION TYPE: XR chest 1V portable DATE OF EXAM: 11/26/2023 CLINICAL HISTORY: Difficulty breathing progress study. TECHNIQUE: Single AP portable upright view of the chest is obtained. COMPARISON: Chest x-ray from 9 days earlier FINDINGS: Tracheostomy tube redemonstrated. Some faint bilateral reticulonodular opacities are felt present bilaterally. No pleural effusion or pneumothorax is seen. Cardiac silhouette size stable with in normal limits. Osseous structures are intact. IMPRESSION: Possible developing bilateral reticulonodular opacities atypical infection needs to be co nsidered. Consider contrast enhanced chest CT follow-up to further evaluate.
[2023-11-26] MEDS ORDERED: IPRATROPIUM-ALBUTEROL 3 ML NEB INHALATION PRN (05:59)
[2023-11-26] MEDS: BUDESONIDE 1 MG/2 ML NEBU INHALATION SCH (07:51)
[2023-11-26] MEDS: FORMOTEROL FUMARATE 20 MCG/2 ML NEBU INHALATION SCH (07:51)
[2023-11-26 12:24] LABS: Glucose,Whole Blood 100 mg/dL (70-110)
--- NOTE | 2023-11-26 12:56 | P.PN ---
Subjective Progress Note Date: 11/26/23 Principal diagnosis: Malnutrition Patient confused overnight. Apparently pulled his IV out. Tolerating tube feeds at goal. Objective - Vital Signs Vital signs: Vital Signs Temp 97.8 F 11/26/23 08:00 Pulse 92 11/26/23 11:17 Resp 20 11/26/23 08:00 BP 145/95 11/26/23 09:27 Pulse Ox 100 11/26/23 08:00 FiO2 28 11/26/23 11:18 Intake & Output 11/25/23 11/26/23 11/26/23 18:59 06:59 18:59 Intake Total 576 Output Total 400 200 Balance 176 -200 Weight 65 kg Intake: Oral 0 Tube Feeding 576 Output: Urine 400 200 Other: Voiding Method Urinal Urinal Diaper Diaper Incontinent Incontinent # Voids 2 ABP, PAP, CO, CI - Last Documented Arterial Blood Pressure 134/82 - Exam Tracheostomy and PEG tube without signs of infection or leakage. - Labs CBC & Chem 7: 11/18/23 13:07 11/18/23 13:07 Assessment and Plan (1) Alcohol abuse Narrative/Plan: Patient has a sitter in place now. Continue tube feeds at goal. Tracheostomy care. Current Visit: Yes Status: Acute Code(s): F10.10 - ALCOHOL ABUSE, UNCOMPLICATED SNOMED Code(s): 61775929
[2023-11-26] MEDS: hydrALAZINE HCL 25 MG TAB PO PRN (14:08)
--- NOTE | 2023-11-26 17:01 | P.PN ---
Subjective Progress Note Date: 11/25/23 Principal diagnosis: Reason for follow-up is fever/leukocytosis/pneumonia Patient is a 48-year-old male with a past medical history significant for hypertension coronary disease anxiety current everyday smoker presenting to the hospital more than 2 weeks ago for evaluation of abdominal pain, has been diagnosed and treated for acute pancreatitis secondary to chronic alcohol patient failed to be extubated and got trach and PEG has been running a low- grade fever prompting this consultation. On today's evaluation that is 11/25/2023, patient has been afebrile, patient is breathing comfortably and is currently on 5 L trach collar oxygen, patient denies having any significant cough no chest pain shortness of breath, patient denies nausea vomiting or diarrhea and no abdominal pain No new labs has been obtained today Objective - Vital Signs Vital signs: Vital Signs Temp 97.7 F 11/25/23 14:00 Pulse 80 11/25/23 15:27 Resp 16 11/25/23 14:00 BP 118/67 11/25/23 14:00 Pulse Ox 95 11/25/23 14:00 FiO2 28 11/25/23 07:31 Intake & Output 11/24/23 11/25/23 11/25/23 18:59 06:59 18:59 Intake Total 120 565 Balance 120 565 Weight 63.5 kg Intake: IV 120 Sodium Chloride 0.9% 1, 120 000 ml @ 10 mls/hr IV . Q24H [facility] Rx#:[id number] Tube Feeding 565 Other: Voiding Method Urinal Urinal Diaper Diaper Incontinent Incontinent # Voids 2 3 ABP, PAP, CO, CI - Last Documented Arterial Blood Pressure 134/82 - Exam GENERAL DESCRIPTION: Middle-age male lying in bed in no distress RESPIRATORY SYSTEM: Unlabored breathing , decreased breath sounds at bases HEART: S1 S2 regular rate and rhythm , ABDOMEN: Soft , mild distention and tenderness EXTREMITIES: No edema feet - Labs CBC & Chem 7: 11/18/23 13:07 11/18/23 13:07 Assessment and Plan (1) Fever Current Visit: Yes Status: Acute Code(s): R50.9 - FEVER, UNSPECIFIED SNOMED Code(s): 456506525 (2) Leukocytosis Current Visit: Yes Status: Acute Code(s): D72.829 - ELEVATED WHITE BLOOD CELL COUNT, UNSPECIFIED SNOMED Code(s): 939793507 (3) Pneumonia Current Visit: Yes Status: Acute Code(s): J18.9 - PNEUMONIA, UNSPECIFIED ORGANISM SNOMED Code(s): 915985407 (4) Alcoholic pancreatitis Current Visit: Yes Status: Acute Code(s): K85.20 - ALCOHOL INDUCED ACUTE PANCREATITIS WITHOUT NECROSIS OR INFCT SNOMED Code(s): 025682155 Plan: 1patient with low-grade fever in this patient with initial admission to the hospital for acute pancreatitis secondary to his alcoholism patient did get intubated because of respiratory distress and did have a positive sputum culture for MSSA on 10/26/2023 patient failed to be extubated and is s/p trach on 11/02/2023 and PEG tube on 11/06/2023 with the etiology of low-grade fever elevated white count is multifactorial question of pneumonia versus abdominal etiology and the patient was noted to have significant abdominal distention and apparently the patient did not have bowel movement for the last 5 to 6 days per the nursing staff 2-patient CT of abdominal pelvis with contrast, did not show any worsening pancreatitis pseudocyst or abscess mild cystitis and effusion 3-patient sputum is growing MSSA and Klebsiella 4-patient did have resolution of his fever white count normalized patient has received adequate antibiotic for underlying pneumonia Dictation was produced using [employer] dictation software. please excuse any gra mmatical, word or spelling errors. Time with Patient: Less than 30
--- NOTE | 2023-11-26 17:02 | P.PN ---
Subjective Progress Note Date: 11/26/23 Principal diagnosis: Reason for follow-up is fever/leukocytosis/pneumonia Patient is a 48-year-old male with a past medical history significant for hypertension coronary disease anxiety current everyday smoker presenting to the hospital more than 2 weeks ago for evaluation of abdominal pain, has been diagnosed and treated for acute pancreatitis secondary to chronic alcohol patient failed to be extubated and got trach and PEG has been running a low- grade fever prompting this consultation. On today's evaluation that is 11/26/2023,the patient denies any fever or any chills, patient is breathing comfortably on 5 L trach collar oxygen the patient denies chest pain shortness of breath and no significant cough, patient denies abdominal pain, no nausea vomiting or diarrhea. No lab draw today Objective - Vital Signs Vital signs: Vital Signs Temp 98.7 F 11/26/23 13:27 Pulse 98 11/26/23 15:02 Resp 19 11/26/23 13:27 BP 143/98 11/26/23 16:40 Pulse Ox 99 11/26/23 13:27 FiO2 28 11/26/23 11:18 Intake & Output 11/25/23 11/26/23 11/26/23 18:59 06:59 18:59 Intake Total 576 Output Total 400 200 Balance 176 -200 Weight 65 kg Intake: Oral 0 Tube Feeding 576 Output: Urine 400 200 Other: Voiding Method Urinal Urinal Diaper Diaper Incontinent Incontinent # Voids 2 ABP, PAP, CO, CI - Last Documented Arterial Blood Pressure 134/82 - Exam GENERAL DESCRIPTION: Middle-age male lying in bed in no distress RESPIRATORY SYSTEM: Unlabored breathing , decreased breath sounds at bases HEART: S1 S2 regular rate and rhythm , ABDOMEN: Soft , mild distention and tenderness EXTREMITIES: No edema feet - Labs CBC & Chem 7: 11/18/23 13:07 11/18/23 13:07 Assessment and Plan (1) Fever Current Visit: Yes Status: Acute Code(s): R50.9 - FEVER, UNSPECIFIED SNOMED Code(s): 773961843 (2) Leukocytosis Current Visit: Yes Status: Acute Code(s): D72.829 - ELEVATED WHITE BLOOD CELL COUNT, UNSPECIFIED SNOMED Code(s): 713528659 (3) Pneumonia Current Visit: Yes Status: Acute Code(s): J18.9 - PNEUMONIA, UNSPECIFIED ORGANISM SNOMED Code(s): 588148389 (4) Alcoholic pancreatitis Current Visit: Yes Status: Acute Code(s): K85.20 - ALCOHOL INDUCED ACUTE PANCREATITIS WITHOUT NECROSIS OR INFCT SNOMED Code(s): 481970443 Plan: 1patient with low-grade fever in this patient with initial admission to the hospital for acute pancreatitis secondary to his alcoholism patient did get intubated because of respiratory distress and did have a positive sputum culture for MSSA on 10/26/2023 patient failed to be extubated and is s/p trach on 11/02/2023 and PEG tube on 11/06/2023 with the etiology of low-grade fever elevated white count is multifactorial question of pneumonia versus abdominal etiology and the patient was noted to have significant abdominal distention and apparently the patient did not have bowel movement for the last 5 to 6 days per the nursing staff 2-patient CT of abdominal pelvis with contrast, did not show any worsening pancreatitis pseudocyst or abscess mild cystitis and effusion 3-patient sputum is growing MSSA and Klebsiella 4-patient did have resolution of his fever white count normalized, patient is currently being monitored closely off antibiotic therapy and seems to be doing well Dictation was produced using [employer] dictation software. please excuse any grammatical, word or spelling errors. Time with Patient: Less than 30
[2023-11-26 17:32] LABS: Glucose,Whole Blood 102 mg/dL (70-110)
[2023-11-26 23:40] LABS: Glucose,Whole Blood 135 mg/dL (70-110)
--- NOTE | 2023-11-27 05:17 | P.PN ---
Subjective 48-year-old white male with past medical history significant for hypertension, coronary artery disease, current everyday smoker, and alcohol abuse. He was transferred from [facility] 10/22/2023 for acute pancreatitis. He was noted to be intoxicated on arrival to outside facility, with an alcohol level of 34 mg/dL. He required ICU admission for Precedex infusion. He was also noted to have severely elevated lipase and amylase levels. An abdominal and pelvis CT was performed, which identified peripancreatic inflammatory stranding and fluid consistent with acute pancreatitis. No pseudocyst, abscess, or pancreatic necrosis. No gallstones or ductal dilation. There was decreased attenuation of the hepatic parenchyma, suggestive of fatty infiltration. Patient was dehdydrated and noted to have sustained an WILFRIDO. It appears he was fluid resuscitated with 2 L of crystalloid fluid. He was then transferred to [facility]. CBC from yesterday: WBC count 7.6, hemoglobin 13.9, hematocrit 42, platelets 110. Most recent CMP from yesterday: Sodium 138, potassium 4.4, chloride 108, serum bicarb 19, BUN 18, creatinine 1.13, glucose 94. AST 97, ALT 74, ALP 156, total bilirubin 1. Lipase 11,329 and amylase 1468. Patient is currently lethargic and not making much sense when talking. Unsure of when last drink was. Precedex is infusing at 0.4 mcg/kg/h. He does have bilateral upper extremity soft restraints on, which likely can be discontinued. Blood pressure is noted to be hypertensive, has received a clonidine 0.2 mg patch, which is fallen off and will be replaced. EKG shows normal sinus rhythm without any obv ious acute ischemic changes. Patient's pain appears well-managed with current regimen of as needed Dilaudid. He does have some facial grimacing with palpation of the bilateral upper abdomen. Normal saline is infusing at 150 MLS per hour. Currently on room air, in no acute respiratory distress. Afebrile. He has been moved to room 262 in the intensive care unit. -- Plan of care was discussed with patient's mother; reports she was told by family noticed that patient is now qualifying for hospice/palliative care -- Patient condition discussed in great detail; rafter cutting machine operator recommendations disc ussed with patient also; no plan to consult hospice or palliative care at this time 11/04/2023 Patient is seen and evaluated in room at bedside; discussed with nursing staff; no family members present in the room Patient remains on mechanical ventilator. He is on volume assist-control Blood gases show pO2 of 72, pCO2 47, pH is 7.41. Lab review shows white count 12.5, hemoglobin 9.9, hematocrit 30.3, and platelet count 357,000. Sodium 135, potassium 4.3, chlorides 102, CO2 28, BUN 19, creatinine 0.64. Glucose is 86. Phosphorus 4.7, calcium 9, magnesium 1.9. Sputum from October 25 shows evidence of Staphylococcus aureus. Chest x-ray shows bilateral small effusions, with adjacent atelectasis. -- Plan for PEG tube placement on 11/06/2023; and has been placed back on tube feeding -Intensive care service planning to wean off the fentanyl, patient has been placed on Dilaudid 1 mg every 4 hours -- Patient is status post tracheostomy; PEG tube placement rescheduled for Monday due to nonavailability of OR 11/05/2023 Patient is seen and evaluated in room at bedside; patient remains on mechanical ventilator. Settings include volume assist-control, rate 20, tidal volume 400, FiO2 50%, PEEP of 5. -- Blood gases show pO2 112, pCO2 45, pH is 7.46. The patient is getting lactated Ringer's at 20 cc an hour, propofol at 10 mcg/kg/min, and tube feedings with Nepro, at 10 cc an hour, with a goal of 19. - White count 14, hemoglobin 10.5, hematocrit 31.8, and platelet count 365,000. Sodium 137, potassium 3.7, chlorides 103, CO2 31, BUN 16, creatinine 0.69. Calcium is 9.2. Magnesium 1.9. Sputum from the was positive for Staphylococcus aureus. The patient has completed his antibiotics. Chest x-ray shows bilateral patchy infiltrates, which could be on the basis of fluid, and or pneumonia. 11/18/2023 --patient is seen and evaluated in room at bedside; remains in the ICU. Patient is doing well he is on trach collar/room air, continues to have lots of secretions being suctioned easily. Vital signs are reviewed and stable with temperature of 99.2, pulse 80, re spirations 16 and blood pressure 122/91 -- Remains on cefepime, patient seems to be calm and not in any distress. Chest x-ray is showing significant improvement compared to previous x-rays, he has mi nimal patchy areas of atelectasis, doubt infiltrate mostly in the left lower lobe area WBC count is 8.7 hemoglobin is 10 basic metabolic profile is normal and renal profile is normal. Transfer patient to regular medical floor; intensive care team recommending to discontinue antibiotics financial services specialist to see for placement 11/19/2023 Patient is seen and evaluated in room at bedside; discussed with nursing staff; no new complaints reported Vital signs are stable with temperature of 98.7, pulse 1 2, respiration 20, blood pressure 93/60 -- Patient is status post tracheostomy and PEG tube placement; continue with tracheostomy and PEG tube care -- PT OT in place; patient will likely need placement 11/21/2023 Patient awake and alert Participating with physical therapy and follows command Patient s/p recommend PEG tube Ncefepime for pneumonia. However it was discontinued today. Will going to monitor while off antibiotic Patient on multiple psych medication being tapered off Librium 20 mg 3 times daily down to 10 mg 4 times daily. With the psychiatrist recommend to taper it of Decrease dose of Seroquel 25 mg from 50 mg. Continue the Prolixin as needed for agitation Sitter at bedside 11/22/2023 Patient mentation today significantly improved, almost back to baseline, he is awake and alert communicative and follows command, he is nonverbal, s/p tracheostomy His mentation improved after lowering sedatives, Librium 20 mg down to 10 mg every 6 hours, we are going to decrease frequency to 3 times daily from tomorrow Seroquel 25 mg added for control of agitation Remains on Protonix Antibiotics discontinued Will keep monitoring closely 11/23/2023 Patient mentation is improving after tapering down his Librium currently 10 mg 3 times daily Patient remains on trach collar No other new complaint plan for discharge to LTAC pending insurance authorization Patient generally doing well He could communicate through writing and he told me he has no pain and that he feels he is ready to go to rehab I explained for the patient that we are waiting for insurance patient to go to LTAC and he showed understanding 11/25/2023 Patient is up in bed No new complaints Pending insurance authorization 11/26/2023 Patient awake and interactive, sitter at bedside. Patient gets agitated at times. He required extra doses of oral hydralazine to control his high blood pressure Pending insurance authorization for placement Objective - Vital Signs Vital signs: Vital Signs Temp 97.8 F 11/26/23 08:00 Pulse 92 11/26/23 11:17 Resp 20 11/26/23 08:00 BP 145/95 11/26/23 09:27 Pulse Ox 100 11/26/23 08:00 FiO2 28 11/26/23 11:18 Intake & Output 11/25/23 11/26/23 11/26/23 18:59 06:59 18:59 Intake Total 576 Output Total 400 200 Balance 176 -200 Weight 65 kg Intake: Oral 0 Tube Feeding 576 Output: Urine 400 200 Other: Voiding Method Urinal Urinal Diaper Diaper Incontinent Incontinent # Voids 2 ABP, PAP, CO, CI - Last Documented Arterial Blood Pressure 134/82 - Exam -GENERAL: The patient is drowsy, follow commands HEENT: Pupils are round and equally reacting to light. EOMI. No scleral icterus. No conjunctival pallor. Normocephalic, atraumatic. No pharyngeal erythema. No thyromegaly. CARDIOVASCULAR: S1 and S2 present. No murmurs, rubs, or gallops. -PULMONARY: Chest is clear to auscultation, no wheezing , no crackles. Tracheostomy tube in place -ABDOMEN: Soft, nontender, nondistended, normoactive bowel sounds. No palpable organomegaly. PEG tube in place MUSCULOSKELETAL: No joint swelling or deformity. EXTREMITIES: No cyanosis, clubbing, or pedal edema. NEUROLOGICAL: Gross neurological examination did not reveal any focal deficits. SKIN: No rashes. no petechiae. - Labs CBC & Chem 7: 11/18/23 13:07 11/18/23 13:07 Assessment and Plan Assessment: Altered mental status secondary to metabolic/toxic encephalopathy Acute hypoxemic respiratory failure second alcohol withdrawal symptoms and DTs currently intubated and on mechanical ventilator since October 26, 2023 Acute alcohol withdrawal symptoms and DTs Uncontrolled hypertension. Improved now. Acute pancreatitis likely alcohol-related Acute kidney injury likely prerenal improved now. Severe alcohol abuse Mild transaminitis improved History of coronary disease Currently everyday smoker Plan: cefepime was discontinued per ID team and keep monitoring while off antibiotic Continue with Librium and other psych medication. Taper dose of Librium per psychiatrist.. Seroquel dose lowered to 50 down to 25 mg Continue with Protonix Several consultants on the case ID, pulmonary, psychiatry and general surgery Labs and medication were reviewed.. Continue same treatment. Continue with symptomatic treatment. Resume home medication. Monitor labs and vitals. DVT and GI prophylaxis. Further recommendations as per clinical course of the patient DVT prophylaxis: Subcutaneous Lovenox GI Prophylaxis: Ppi Prognosis is guarded Restricted sedative, taper off gradually Possible discharge in 24 to 48 hours if he keeps improving
[2023-11-27 06:18] LABS: Glucose,Whole Blood 115 mg/dL (70-110)
--- NOTE | 2023-11-27 11:20 | P.DS ---
Providers Date of admission: 10/23/23 00:13 Attending physician: Iliana Han MD Consults: 10/23/23 20:02 Consult Physician Stat Consulting Provider: Juan Pablo Mooney Consult Reason/Comments: icu management Do you want consulting provider notified?: Yes 11/01/23 09:01 Consult Physician Routine Consulting Provider: Clarence Colin Consult Reason/Comments: Trach/PEG Do you want consulting provider notified?: Yes 11/08/23 15:12 Consult Physician Routine Consulting Provider: Carlos Shannon Consult Reason/Comments: recurrent fever, prolonged vent, aspiration, abx rec Do you want consulting provider notified?: Yes 11/15/23 09:13 Consult Physician Routine Consulting Provider: Abhay Mcmahon Consult Reason/Comments: Psych med adjustments Do you want consulting provider notified?: Yes 11/20/23 08:23 Consult Physician Stat Consulting Provider: Steve Melo Consult Reason/Comments: IN pt rehab Do you want consulting provider notified?: Yes Primary care physician: Physician Nonstaff Hospital Course: Final Diagnosis Altered mental status secondary to metabolic/toxic encephalopathy, improved. Acute hypoxemic respiratory failure second alcohol withdrawal symptoms and DTs currently Status post PEG tube placement and tracheostomy Acute alcohol withdrawal symptoms and DTs resolved. Uncontrolled hypertension. Improved now. Acute pancreatitis likely alcohol-related Acute kidney injury likely prerenal improved now. Severe alcohol abuse Mild transaminitis improved History of coronary disease Currently everyday smoker Discharge Disposition Patient stable for discharge to long-term acute care facility patient be discharged to [place]. Patient will continue on PEG tube feedings as mentioned with Nepro running at 47 and mils per hour. Patient is receiving a free water flush of 30 MLS every 4 hours. He did fail his most recent barium swallow and is recommended to continue strict n.p.o. status and follow-up speech therapy will be beneficial. Patient additionally continues on Librium which will be weaned down to 10 mg times a day on discharge and will recommend further weaning off this medication. Patient continues on a 28% trach collar has a #6 [address] tracheostomy tube in place. Patient requires aggressive physical therapy and Occupational Therapy. Recommending follow-up closely with pulmonology, general surgery and infectious disease on discharge. Recommend to repeat blood work in 2 to 3 days. Patient will need to establish care with a primary care provider on discharge. Hospital Course This is a 48-year-old male with medical history of chronic alcoholism who was admitted to the hospital due to pancreatitis with acute delirium tremens. Initially presented to [facility] back on October 23, 2023 and was sent down to [facility] due to alcohol intoxication and acute alcoholic pancreatitis he had an abdominal pelvis CT done at Dr. Hall that showed peripancreatic inflammatory stranding and fluid consistent with acute pancreatitis there is no mention of a pseudocyst abscess or pancreatic necrosis. There is suggestive of fatty infiltration of the liver. Did have elevated amylase and lipase with an alcohol level of 34. Patient was brought down to [facility] and GI services was consulted. They recommended conservative and symptomatic supportive care with clear liquid diet and hydration. Patient had worsening withdrawal symptoms with evidence of delirium tremens and required ICU care. Patient was subsequently intubated and monitored in the intensive care unit secondary to significant alcohol withdrawal. Patient was receiving Clevipr ex and propofol initially. He had concern for pneumonia due to chest x-ray showing bilateral interstitial and patchy opacities. His sputum culture did show MSSA and he was treated with IV Zosyn while in the hospital. Patient had prolonged intubation, underwent PEG tube placement with a tracheostomy tube on November 01 initially had a #8 Portex tracheostomy tube placed. He underwent PEG tube placement on November 05. Patient was significantly agitated and unable to verbally speak he then underwent a tracheostomy change out to a #6 Shiley on November 13. Is now off of oxygen support and is currently utilizing a trach collar modification. He is maintaining oxygen saturations 97 to 98%. He was evaluated by psychiatry for medication adjustments and was a slow wean off the cleviprex gtt. He was requiring prolixin prn which has now been discontinued. Currently receiving scheduled seroquel, librium. He was moved out of the ICU to the general medical floor. Patient continues with enteral feedings with epidural running at 47 MLS per hour which is at goal with a free water flush of 30 mL every 4 hours. He underwent a barium swallow on November 16 revealing intermittent silent aspiration with thin and nectar aspiration of residuals with honey and pudding consistency. Patient this time recommends to continue with strict n.p.o. Is now awake alert and oriented. He is less agitated and is able to c ommunicate and voice his concerns. He is not complaining of any shortness of breath he is not complaining of any nausea vomiting and is not having any diarrhea. His bowels are moving. He is urinating without difficulty. He continues on scheduled Librium which we will begin to wean further on discharge down to 10 mg 3 times a day and will continue to recommend weaning this medication off. Patient would benefit by continued psychiatric services once discharged. Patient continues on a nicotine patch. At this time patient has completed course of antibiotic therapy due to a positive sputum culture for MSSA and Klebsiella his fever has resolved at this time and his white blood cell count has normalized and patient has been followed by infectious disease and monitored off antibiotic therapy with no further antibiotic recommendations on discharge. Recent blood work reveals a white blood cell count of 10.8, hemoglobin 10.3, sodium 138, potassium 4.0, BUN of 22 creatinine of 0.86, magnes ium of 2.0. His LFTs are within normal limits. Hemoynamically he is stable. Please see medication reconciliation for a list of current medications. Thank you for allowing us to participate in the care of this patient. The impression and plan of care has been dictated by Madelyn Elliott, Nurse Practitioner as directed. Dr. Milton MD I have performed a history and physical examination and medical decision making of this patient, discussed the same with the dictator, and agree with the dictators assessment and plan as written, documented as a scribe. Based on total visit time, I have performed more than 50% of this visit. Patient Condition at Discharge: Fair Plan - Discharge Summary New Discharge Prescriptions: New traZODone HCL [Desyrel] 50 mg PO HS PRN tab PRN Reason: Insomnia bisacodyL [Dulcolax] 10 mg RECTAL DAILY PRN suppositor PRN Reason: Constipation Verapamil [Isoptin] 80 mg PO TID tab chlordiazePOXIDE HCl [Librium] 10 mg PO TID #6 cap Metoprolol Tartrate [Lopressor] 50 mg PO TID tab Enoxaparin [Lovenox] 40 mg SQ DAILY each Ibuprofen [Motrin] 600 mg PO Q6HR PRN tab PRN Reason: Mild Pain Or Fever > 100.5 Pantoprazole [Protonix] 40 mg PO DAILY #30 tab Budesonide [Pulmicort] 1 mg INHALATION RT-BID ml QUEtiapine [SEROquel] 25 mg PO DAILY tab QUEtiapine [SEROquel] 150 mg PO HS tab Sodium Bicarbonate Tab 650 mg PO BID tab Ondansetron [Zofran] 4 mg PO Q8HR PRN #10 tab PRN Reason: Nausea busPIRone HCl [Buspar] 30 mg PO BID tab Ipratropium-Albuterol Nebulize [Duoneb 0.5 mg-3 mg/3 ml Soln] 3 ml INHALATION RT-Q2H PRN each PRN Reason: Shortness Of Breath Or Wheezing Ipratropium-Albuterol Nebulize [Duoneb 0.5 mg-3 mg/3 ml Soln] 3 ml INHALATION RT-QID each Nicotine 14Mg/24Hr Patch [Habitrol] 1 patch TRANSDERM DAILY patch Nystatin 100,000 Unit/gm Powd [Mycostatin Powder] 1 applic TOPICAL BID each Formoterol Fumarate [Perforomist] 20 mcg INHALATION RT-BID ml Thiamine [Vitamin B-1] 100 mg PO DAILY tab Continue Sertraline [Zoloft] 100 mg PO DAILY Rosuvastatin [Crestor] 10 mg PO DAILY Pregabalin [Lyrica] 75 mg PO BID Folic Acid 1 mg PO DAILY Discontinued Sertraline HCl [Zoloft] 50 mg PO DAILY Verapamil HCl [Calan Sr] 240 mg PO DAILY Metoprolol Succinate (ER) [Toprol Xl] 100 mg PO DAILY Discharge Medication List Folic Acid 1 mg PO DAILY 10/23/23 [History] Pregabalin [Lyrica] 75 mg PO BID 10/23/23 [History] Rosuvastatin [Crestor] 10 mg PO DAILY 10/23/23 [History] Sertraline [Zoloft] 100 mg PO DAILY 10/23/23 [History] Budesonide [Pulmicort] 1 mg INHALATION RT-BID ml 11/27/23 [Rx] Enoxaparin [Lovenox] 40 mg SQ DAILY each 11/27/23 [Rx] Formoterol Fumarate [Perforomist] 20 mcg INHALATION RT-BID ml 11/27/23 [Rx] Ibuprofen [Motrin] 600 mg PO Q6HR PRN tab 11/27/23 [Rx] Ipratropium-Albuterol Nebulize [Duoneb 0.5 mg-3 mg/3 ml Soln] 3 ml INHALATION RT-Q2H PRN each 11/27/23 [Rx] Ipratropium-Albuterol Nebulize [Duoneb 0.5 mg-3 mg/3 ml Soln] 3 ml INHALATION RT-QID each 11/27/23 [Rx] Metoprolol Tartrate [Lopressor] 50 mg PO TID tab 11/27/23 [Rx] Nicotine 14Mg/24Hr Patch [Habitrol] 1 patch TRANSDERM DAILY patch 11/27/23 [Rx] Nystatin 100,000 Unit/gm Powd [Mycostatin Powder] 1 applic TOPICAL BID each 11/27/23 [Rx] Ondansetron [Zofran] 4 mg PO Q8HR PRN #10 tab 11/27/23 [Rx] Pantoprazole [Protonix] 40 mg PO DAILY #30 tab 11/27/23 [Rx] QUEtiapine [SEROquel] 25 mg PO DAILY tab 11/27/23 [Rx] QUEtiapine [SEROquel] 150 mg PO HS tab 11/27/23 [Rx] Sodium Bicarbonate Tab 650 mg PO BID tab 11/27/23 [Rx] Thiamine [Vitamin B-1] 100 mg PO DAILY tab 11/27/23 [Rx] Verapamil [Isoptin] 80 mg PO TID tab 11/27/23 [Rx] bisacodyL [Dulcolax] 10 mg RECTAL DAILY PRN suppositor 11/27/23 [Rx] busPIRone HCl [Buspar] 30 mg PO BID tab 11/27/23 [Rx] chlordiazePOXIDE HCl [Librium] 10 mg PO TID #6 cap 11/27/23 [Rx] traZODone HCL [Desyrel] 50 mg PO HS PRN tab 11/27/23 [Rx] Follow up Appointment(s)/Referral(s): Nonstaff,Physician [Primary Care Provider] - 1-2 days
[2023-11-27 13:23] VITALS: BP 145/101; PULSE 74; RESP 16; TEMP 98.5
--- NOTE | 2023-11-27 14:51 | P.PN ---
Subjective Progress Note Date: 11/27/23 CHIEF COMPLAINT: Abdominal pain HISTORY OF PRESENT ILLNESS: Patient is status post PEG tube placement on 11/06/23. Patient is status post tracheostomy placement on 11/02/23. Patient is on a regular medical floor. No new complaints. PHYSICAL EXAM: VITAL SIGNS: Reviewed. GENERAL: no acute distress. Neck: trach site clean, dry and intact. ABDOMEN: PEG tube site clean dry and intact ASSESSMENT: 1. Acute hypoxic respiratory failure due to alcohol withdraw and unable to protect airway 2. Severe protein calorie malnutrition PLAN: -Continue tube feeds -Patient scheduled for discharge to LTAC today Physician Flux Tube Attendant note has been reviewed by physician. Signing provider agrees with the documented findings, assessment, and plan of care. Greater than 60% of the total time spent in counseling and coordination of care Objective - Vital Signs Vital signs: Vital Signs Temp 98.5 F 11/27/23 12:58 Pulse 74 11/27/23 12:58 Resp 16 11/27/23 12:58 BP 145/101 11/27/23 12:58 Pulse Ox 99 11/27/23 12:58 FiO2 28 11/27/23 09:01 Intake & Output 11/26/23 11/27/23 11/27/23 18:59 06:59 18:59 Weight 64.5 kg Other: Voiding Method Urinal Urinal Urinal Diaper Diaper Diaper Incontinent Incontinent Incontinent # Voids 4 2 ABP, PAP, CO, CI - Last Documented Arterial Blood Pressure 134/82 - Labs CBC & Chem 7: 11/18/23 13:07 11/18/23 13:07 Labs: Abnormal Lab Results - Last 24 Hours (Table) 11/26/23 11/27/23 Range/Units 23:35 06:16 POC Glucose (mg/dL) 135 H 115 H (70-110) mg/dL
--- NOTE | 2023-11-28 15:32 | P.PN ---
Subjective Progress Note Date: 11/27/23 Principal diagnosis: Reason for follow-up is fever/leukocytosis/pneumonia Patient is a 48-year-old male with a past medical history significant for hypertension coronary disease anxiety current everyday smoker presenting to the hospital more than 2 weeks ago for evaluation of abdominal pain, has been diagnosed and treated for acute pancreatitis secondary to chronic alcohol patient failed to be extubated and got trach and PEG has been running a low- grade fever prompting this consultation. On today's evaluation that is 11/27/2023,the patient remains to be afebrile, patient is on 8 L trach collar supplemental oxygen and denies any shortness of breath no chest pain or cough.Patient denies having any nausea or vomiting, no abdominal pain and no diarrhea has been reported. Patient mention he is feeling hungry would like to eat No new labs obtained today Objective - Vital Signs Vital signs: Vital Signs Temp 97.8 F 11/27/23 07:22 Pulse 90 11/27/23 09:21 Resp 18 11/27/23 09:21 BP 120/83 11/27/23 07:22 Pulse Ox 98 11/27/23 07:22 FiO2 28 11/27/23 09:01 Intake & Output 11/26/23 11/27/23 11/27/23 18:59 06:59 18:59 Weight 64.5 kg Other: Voiding Method Urinal Urinal Urinal Diaper Diaper Diaper Incontinent Incontinent Incontinent # Voids 4 2 ABP, PAP, CO, CI - Last Documented Arterial Blood Pressure 134/82 - Exam GENERAL DESCRIPTION: Middle-age male lying in bed in no distress RESPIRATORY SYSTEM: Unlabored breathing , decreased breath sounds at bases HEART: S1 S2 regular rate and rhythm , ABDOMEN: Soft , mild distention and tenderness EXTREMITIES: No edema feet - Labs CBC & Chem 7: 11/18/23 13:07 11/18/23 13:07 Labs: Abnormal Lab Results - Last 24 Hours (Table) 11/26/23 11/27/23 Range/Units 23:35 06:16 POC Glucose (mg/dL) 135 H 115 H (70-110) mg/dL Assessment and Plan (1) Fever Status: Acute Code(s): R50.9 - FEVER, UNSPECIFIED SNOMED Code(s): 674848825 (2) Leukocytosis Status: Acute Code(s): D72.829 - ELEVATED WHITE BLOOD CELL COUNT, UNSPECIFIED SNOMED Code(s): 876257340 (3) Pneumonia Status: Acute Code(s): J18.9 - PNEUMONIA, UNSPECIFIED ORGANISM SNOMED Code(s): 603197661 (4) Alcoholic pancreatitis Status: Acute Code(s): K85.20 - ALCOHOL INDUCED ACUTE PANCREATITIS WITHOUT NECROSIS OR INFCT SNOMED Code(s): 076175768 Plan: 1patient with low-grade fever in this patient with initial admission to the hospital for acute pancreatitis secondary to his alcoholism patient did get int ubated because of respiratory distress and did have a positive sputum culture for MSSA on 10/26/2023 patient failed to be extubated and is s/p trach on 11/02/2023 and PEG tube on 11/06/2023 with the etiology of low-grade fever elevated white count is multifactorial question of pneumonia versus abdominal etiology and the patient was noted to have significant abdominal distention and apparently the patient did not have bowel movement for the last 5 to 6 days per the nursing staff 2-patient CT of abdominal pelvis with contrast, did not show any worsening pancreatitis pseudocyst or abscess mild cystitis and effusion 3-patient sputum is growing MSSA and Klebsiella 4-patient did have resolution of his fever white count normalized, patient has received adequate antibiotic therapy for underlying pneumonia and no need for antibiotics on discharge Dictation was produced using [employer] dictation software. please excuse any grammatical, word or spelling errors. Time with Patient: Less than 30
--- NOTE | 2023-11-28 23:23 | CDI ---
Documentation Clarification Form Date: 11/28/2023 11:05:00 PM From: Haven Kee Phone: Admit Date: 10/23/2023 12:13:00 AM Patient Name: Federico Franks Visit Number: [id number] Discharge Date: 11/27/2023 02:53:00 PM ATTENTION: The Clinical Documentation Specialists (CDI) and [facility] Coding Staff appreciate your assistance in clarifying documentation. Please respond to the clarification below the line at the bottom and electronically sign. The CDI & [facility] Coding staff will review the response and follow-up if needed. Please note: Queries are made part of the Legal Health Record. If you have any questions, please contact the author of this message via ITS. Dr. Iliana Han Your patient has the documented diagnosis of unspecified CHF per Dr Milady Perry MD Progress Note 10/31 and throughout IP Progress Notes. Additional information regarding the type of CHF is requested. History/Risk Factors: 48yo M, met/tox enceph, ETOH intox then WD wDT, uncontrolledHTN, ETOH acute pancreatitis, WILFRIDO, transaminitis, CAD, smoker Clinical Indicators: VS/Pulse OX: 96-97 BNP: 10/27 216 11/11 573 Echo: LV ejection fraction is estimated at 55-60 %. LV cavitysize normal. LV wall thickness normal. No obvious regional wall motionabnormalities. Normal RV size. Unable toestimate the RV systolicpressure. RA not well visualized. Normal left atrial size. MV Structurally normal MV. NoMS/MR or MP. AV Trileaflet aortic valve. NoAS/AR. TV Structurally normal TV. NoTR. PV not well visualized. Nopericardial effusion. Normal size aortic root and proximal ascending aorta. Chest X Ray: 10/27 Heart mildlyenlarged. Mild interstitial prominence, smalleffusions, and patchy bibasilaropacitiesremain. Treatment: Patient remains on antibiotic, and today I recommended that he goes back on Lasix. In your professional opinion, can you please clarify the type of CHF if known? [ ] Acute Systolic Heart Failure (reduced EF) [ ] Acute Diastolic Heart Failure (preserved EF) [ ] Acute Systolic & Diastolic Heart Failure [@@@ ] Other, please specify [ ] Unable to determine (Template Last Revised: August 2020) MTDD
--- NOTE | 2023-12-18 10:52 | CDI ---
Documentation Clarification Form Date: 12/18/2023 10:40:17 AM From: Haven Kee Phone: Admit Date: 10/23/2023 12:13:00 AM Patient Name: Federico Franks Visit Number: [id number] Discharge Date: 11/27/2023 02:53:00 PM ATTENTION: The Clinical Documentation Specialists (CDI) and [facility] Coding Staff appreciate your assistance in clarifying documentation. Please respond to the clarification below the line at the bottom and electronically sign. The CDI & [facility] Coding staff will review the response and follow-up if needed. Please note: Queries are made part of the Legal Health Record. If you have any questions, please contact the author of this message via ITS. Dr. Iliana Han Per the previous query, this patient had does not have acute CHF; however, [ ] Other {CHF}, please specify was selected. Please clarify the type and acuity of CHF. History/Risk Factors: 48yo M, met/tox enceph, ETOH intox then WD wDT, uncontrolledHTN,ETOH acute pancreatitis,WILFRIDO,transaminitis,CAD,smoker Clinical Indicators: VS/Pulse OX: 96-97 BNP: 10/27 216 11/11 573 Echo: LV ejection fraction is estimated at 55-60 %.LVcavitysize normal. LV wall thickness normal. No obviousregional wall motionabnormalities. Normal RV size. Unable toestimate the RV systolicpressure. Anot well visualized. Normal left atrial size. MV structurally normal MV.NoMS/MR or MP. AV Trileaflet aortic valve. NoAS/AR.TV Structurally normal TV. NoTR.PV not well visualized. Nopericardial effusion. Normal size aortic root and proximal ascending aorta. Chest X Ray: 10/27 Heart mildlyenlarged. Mild interstitial prominence, smalleffusions, and patchy bibasilaropacitiesremain. Treatment: Patient remains on antibiotic, and today I recommended that he goes back on Lasix. In your professional opinion, please clarify the type ofCHFif known? [ ] Chronic Systolic Heart Failure (reduced EF) [ ] Chronic Diastolic Heart Failure (preserved EF) [ ] Chronic Combined Systolic Diastolic Heart Failure [ ] Other, (Medical Provider) please specify [ ###] Unable to determine MTDD
== END 2023-11-27 14:53 | DRG 5 ==
LOC: EC 23:23 → 6NMEDSUR 10-23 00:12 → OBSVTOIN 10-23 00:13 → 6NMEDSUR 10-23 01:09 → 5NMEDONC 10-23 03:52 → 2SICU 10-23 20:18 → 5NMEDONC 11-18 00:11 → 6NMEDSUR 11-24 02:13 → 5NMEDONC 11-24 05:04
PROVIDERS: ADMIT Internal Medicine; ATTEND Internal Medicine
PROC: 5A1955Z Respiratory Ventilation, Greater than 96 Consecutive Hours (ICD-10-PCS; 2023-10-27)
PROC: 03HY32Z Insertion of Monitoring Device into Upper Artery, Percutaneous Approach (ICD-10-PCS; 2023-10-27)
PROC: 4A133B1 Monitoring of Arterial Pressure, Peripheral, Percutaneous Approach (ICD-10-PCS; 2023-10-27)
PROC: 4A133J1 Monitoring of Arterial Pulse, Peripheral, Percutaneous Approach (ICD-10-PCS; 2023-10-27)
PROC: 0BH18EZ Insertion of Endotracheal Airway into Trachea, Via Natural or Artificial Opening Endoscopic (ICD-10-PCS; 2023-10-27)
PROC: 3E0G76Z Introduction of Nutritional Substance into Upper GI, Via Natural or Artificial Opening (ICD-10-PCS; 2023-10-27)
PROC: 0B110F4 Bypass Trachea to Cutaneous with Tracheostomy Device, Open Approach (ICD-10-PCS; principal; 2023-11-02 08:35)
PROC: 0DH63UZ Insertion of Feeding Device into Stomach, Percutaneous Approach (ICD-10-PCS; 2023-11-06)
PROC: 0B21XFZ Change Tracheostomy Device in Trachea, External Approach (ICD-10-PCS; 2023-11-14)
DX: K85.20 Alcohol induced acute pancreatitis without necrosis or infection (principal); F10.231 Alcohol dependence with withdrawal delirium; J15.211 Pneumonia due to Methicillin susceptible Staphylococcus aureus; E43 Unspecified severe protein-calorie malnutrition; I11.0 Hypertensive heart disease with heart failure; F10.229 Alcohol dependence with intoxication, unspecified; N17.9 Acute kidney failure, unspecified; J96.01 Acute respiratory failure with hypoxia; J69.0 Pneumonitis due to inhalation of food and vomit; I50.9 Heart failure, unspecified; G92.8 Other toxic encephalopathy; F05 Delirium due to known physiological condition; B96.1 Klebsiella pneumoniae [K. pneumoniae] as the cause of diseases classified elsewhere; L30.4 Erythema intertrigo; I25.10 Atherosclerotic heart disease of native coronary artery without angina pectoris; F17.210 Nicotine dependence, cigarettes, uncomplicated; E86.0 Dehydration; I16.0 Hypertensive urgency; Y90.1 Blood alcohol level of 20-39 mg/100 ml; Z78.1 Physical restraint status; Z68.21 Body mass index [BMI] 21.0-21.9, adult; Z79.899 Other long term (current) drug therapy; Z11.52 Encounter for screening for COVID-19
CPT/HCPCS: 36600; 43246; 70450; 71045; 74018; 74177; 74230; 80048; 80053; 80076; 80202; 80306; 81001; 82140; 82150; 82805; 83605; 83690; 83735; 83880; 84100; 84132; 84145; 84478; 85025; 85027; 87040; 87070; 87077; 87186; 87205; 87636; 93005; 93306; 94002; 94003; 94640; 94660; 94760; 96361; 96374; 96375; 96376; 99285

== ENCOUNTER 2024-02-07 20:32 | Inpatient (IN) | payer OTHER ==
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
[2024-02-07] MEDS: LORazepam 2 MG/ML INJ IV STA ×2 (21:47→23:50)
[2024-02-07] MEDS: SODIUM CHLORIDE 0.9% 1,000 ML IV ONE (21:47)
[2024-02-07 22:20] LABS: Basophils % (A) 0 %; Eosinophils # (A) 0.2 k/uL (0-0.7); Eosinophils % (A) 4 %; HCT 40.4 % (39.0-53.0); HGB 13.3 gm/dL (13.0-17.5); Lymphocytes # (A) 1.2 k/uL (1.0-4.8); Lymphocytes % (A) 24 %; MCHC 32.9 g/dL (31.0-37.0); MCV 91.2 fL (80.0-100.0); Mean Platelet Volume 7.3; Monocytes # (A) 0.5 k/uL (0-1.0); Monocytes % (A) 9 %; Neutrophils # (A) 3.2 k/uL (1.3-7.7); Neutrophils % (A) 61 %; Platelet Count 205 k/uL (150-450); RBC 4.43 m/uL (4.30-5.90); RDW 15.5 % (11.5-15.5); WBC 5.2 k/uL (3.8-10.6)
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
[2024-02-07 22:48] LABS: ALT 21 U/L (4-49); AST 41 U/L (17-59); African American GFR (CKD) >90 (>60 ml/min/1.73 sqM); Albumin 4.4 g/dL (3.5-5.0); Alkaline Phosphatase 153 U/L (38-126); Anion Gap 10 mmol/L; Blood Urea Nitrogen 9 mg/dL (9-20); Calcium 9.4 mg/dL (8.4-10.2); Carbon Dioxide 24 mmol/L (22-30); Chloride 105 mmol/L (98-107); Glucose 102 mg/dL (74-99); Non-African American GFR(CKD) >90 (>60 ml/min/1.73 sqM); Potassium 3.3 mmol/L (3.5-5.1); Sodium 139 mmol/L (137-145); Total Bilirubin 0.2 mg/dL (0.2-1.3); Total Protein 7.1 g/dL (6.3-8.2)
[2024-02-07 23:04] LABS: Alcohol 86 mg/dL
[2024-02-08] MEDS ORDERED: LORazepam 2 MG/ML INJ IV PRN (00:40)
[2024-02-08] MEDS ORDERED: ONDANSETRON 4 MG/2 ML VIAL IVP PRN (00:40)
[2024-02-08] MEDS ORDERED: NALOXONE 0.4 MG/ML 1 ML VIAL IV PRN (00:40)
[2024-02-08] MEDS: SODIUM CHLORIDE 0.9% 1,000 ML IV SCH (01:09)
[2024-02-08] MEDS: METOPROLOL TARTRATE 5 MG/5 ML VIAL IVP STA (04:23)
[2024-02-08] MEDS: LORazepam 2 MG/ML INJ IV STA (04:24)
[2024-02-08] MEDS: hydrALAZINE HCL 20 MG/ML 1 ML VIAL IVP STA ×2 (05:14→05:51)
[2024-02-08] MEDS: VERAPAMIL 80 MG TAB PO SCH (07:53)
[2024-02-08] MEDS: METOPROLOL TARTRATE 50 MG TAB PO SCH (07:53)
[2024-02-08] MEDS ORDERED: ACETAMINOPHEN TAB 325 MG TAB PO PRN (10:29)
[2024-02-08] MEDS: METOPROLOL TARTRATE 25 MG TAB PO SCH ×2 (10:40→18:28)
[2024-02-08] MEDS: PANTOPRAZOLE 40 MG TABLET PO SCH (10:45)
[2024-02-08] MEDS: GABAPENTIN 300 MG CAP PO SCH (10:45)
[2024-02-08] MEDS: SERTRALINE 100 MG TAB PO SCH (10:45)
[2024-02-08] MEDS: FOLIC ACID 1 MG TAB PO SCH (10:45)
[2024-02-08] MEDS: LORazepam 2 MG/ML INJ IV PRN ×2 (13:20→20:53)
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
[2024-02-08] MEDS: CYCLOBENZAPRINE 5 MG TAB PO PRN (16:56)
[2024-02-08] MEDS: QUEtiapine 25 MG TAB PO SCH (20:47)
[2024-02-08] MEDS: ATORVASTATIN 20 MG TAB PO SCH (20:48)
[2024-02-08] MEDS ORDERED: HEPARIN SODIUM,PORCINE 5,000 UNIT/ML 1 ML VIAL SQ SCH (21:00)
[2024-02-08] MEDS: MORPHINE SULFATE 2 MG/ML SYRINGE IVP STA (21:07)
[2024-02-08 21:52] LABS: Amylase 247 U/L (30-110)
[2024-02-08 22:22] LABS: Lipase 2228 U/L (23-300)
--- NOTE | 2024-02-08 22:26 | CT ---
EXAMINATION TYPE: CT abdomen w con CT DLP: 653 mGycm, Automated exposure control for dose reduction was used. DATE OF EXAM: 02/08/2024 9:45 PM COMPARISON: CT abdomen pelvis most recent from 11/09/2023 CLINICAL INDICATION:Male, 48 years old with history of abd pain; abdominal pain TECHNIQUE: Axial CT abdomen w con;Sagittal and coronal reformats were created on a separate workstat ion. Contrast used:100 ml mL of Isovue 300 with IV Contrast, (none if empty) Oral contrast used: without Oral Contrast (none if empty) FINDINGS: LOWER CHEST: Unremarkable ABDOMEN LIVER: Focal fatty infiltration adjacent to the falciform ligament in segment IVb GALLBLADDER AND BILE DUCTS: Unremarkable. PANCREAS: Perinephric fat stranding and fluid is appreciated. There is a hypodense focus noted in the area of the pancreatic head which measures approximately 9 mm. No peripancreatic organized fluid col lection seen at this time. Homogenous enhancement of the pancreatic parenchyma. SPLEEN: Unremarkable. ADRENAL GLANDS: Unremarkable. KIDNEYS AND URETERS: No evidence of hydronephrosis or renal calculus. The ureters are unremarkable. STOMACH AND BOWEL: Stomach is incompletely distended. Small bowel is of normal caliber. There is nota ble fat stranding extending from the pancreas to the proximal portion of the small bowel. The visuali zed large bowel is normal in caliber. No evidence of bowel obstruction. PERITONEUM/RETROPERITONEUM: No evidence of pneumoperitoneum. Trace intra-abdominal ascites. VASCULATURE: No evidence of aortic aneurysm. MUSCULOSKELETAL: No acute osseous abnormalities LYMPH NODES: Multiple scattered nonenlarged intra-abdominal lymph nodes likely reactive. There are mu ltiple nonenlarged nodes in the retroperitoneum. SOFT TISSUE/ABDOMINAL WALL: Unremarkable IMPRESSION: 1. Findings consistent with acute interstitial edematous pancreatitis with no organized fluid collec tions at this time. 2. Nonspecific cystic focus seen in the pancreatic head may relate to pseudocyst formation. Consider MRI pancreatic protocol/MRCP for further characterization when patient completed his clinical course. 3. Inflammatory changes involving the distal stomach and proximal small bowel likely related to pancr eatitis however may also relate to a concomitant reactive gastroduodenitis.
[2024-02-08] MEDS: HYDROmorphone 0.5 MG/0.5 ML SYRINGE IVP PRN (23:36)
[2024-02-08] MEDS: DEXTROSE 5%-0.9% NACL 1,000 ML IV SCH (23:40)
[2024-02-09] MEDS: THIAMINE 100 MG TAB PO SCH (08:59)
[2024-02-09] MEDS: chlordiazePOXIDE 25 MG CAP PO SCH (11:42)
[2024-02-09] MEDS: hydrALAZINE HCL 50 MG TAB PO STA ×2 (11:48→17:09)
[2024-02-09 11:51] LABS: African American GFR (CKD) 89 (>60 ml/min/1.73 sqM); Anion Gap 5 mmol/L; Blood Urea Nitrogen 14 mg/dL (9-20); Calcium 9.3 mg/dL (8.4-10.2); Carbon Dioxide 26 mmol/L (22-30); Chloride 102 mmol/L (98-107); Glucose 99 mg/dL (74-99); Non-African American GFR(CKD) 77 (>60 ml/min/1.73 sqM); Potassium 3.8 mmol/L (3.5-5.1); Sodium 133 mmol/L (137-145)
[2024-02-09] MEDS: SODIUM CHLORIDE 0.9% 1,000 ML IV SCH (13:42)
[2024-02-09 13:52] LABS: Lipase 7637 U/L (23-300)
[2024-02-09 13:54] LABS: Amylase 1387 U/L (30-110)
[2024-02-09] MEDS: cloNIDine HCL 0.1 MG TAB PO SCH (14:00)
[2024-02-09] MEDS ORDERED: CYCLOBENZAPRINE 5 MG TAB PO PRN (20:19)
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
[2024-02-09] MEDS: LOSARTAN 50 MG TAB PO SCH (20:45)
[2024-02-10] MEDS: LORazepam 2 MG/ML INJ IV STA ×3 (04:02→09:52)
[2024-02-10 11:40] LABS: Magnesium 1.6 mg/dL (1.5-2.4)
[2024-02-10 11:53] LABS: Lipase 1135 U/L (14-60)
[2024-02-10 12:33] LABS: HCT 32.9 % (39.6-50.0); HGB 11.1 g/dL (13.0-17.0); Immature Platelet Fraction 4.5 % (1.1-6.1); MCH 30.7 pg (27.0-32.0); MCHC 33.7 g/dL (32.0-37.0); MCV 90.9 FL (80.0-97.0); NRBC Per 100 WBC 0 X 10*3/uL (0.00-0.01); Platelet Count 34 X 10*3/uL (140-440); RBC 3.62 X 10*6/uL (4.40-5.60); WBC 5.62 X 10*3/uL (4.50-10.00)
[2024-02-10 12:34] LABS: Basophils # (A) 0.04 X 10*3/uL (0.00-0.10); Basophils % (A) 0.7 %; Eosinophils # (A) 0.14 X 10*3/uL (0.04-0.35); Eosinophils % (A) 2.5 %; Lymphocytes # (A) 0.93 X 10*3/uL (0.90-5.00); Lymphocytes % (A) 16.5 %; Monocytes # (A) 1.08 X 10*3/uL (0.20-1.00); Monocytes % (A) 19.2 %; Neutrophils # (A) 3.35 X 10*3/uL (1.80-7.70); Neutrophils % (A) 59.7 %
[2024-02-10 14:25] LABS: ALT 15 U/L (10-49); AST 60 U/L (14-35); Albumin 3.8 g/dL (3.8-4.9); Alkaline Phosphatase 139 U/L (41-126); Amylase 761 U/L (23-121); BUN/Creat Ratio 18.27 Ratio (12.00-20.00); Blood Urea Nitrogen 27.4 mg/dL (9.0-27.0); Calcium 8.9 mg/dL (8.7-10.3); Chloride 101 mmol/L (96-109); Glucose 106 mg/dL (70-110); Potassium 3.8 mmol/L (3.5-5.5); Sodium 134 mmol/L (135-145); Total Bilirubin 2.3 mg/dL (0.3-1.2); Total Protein 5.8 g/dL (6.2-8.2)
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
[2024-02-11 19:47] VITALS: RESP 18
[2024-02-11] MEDS: cloNIDine HCL 0.1 MG TAB PO SCH (21:22)
[2024-02-11 22:17] LABS: ALT 13 U/L (4-49); AST 54 U/L (17-59); African American GFR (CKD) 51 (>60 ml/min/1.73 sqM); Albumin 3.3 g/dL (3.5-5.0); Alkaline Phosphatase 116 U/L (38-126); Amylase 158 U/L (30-110); Anion Gap 6 mmol/L; Blood Urea Nitrogen 51 mg/dL (9-20); Calcium 9.1 mg/dL (8.4-10.2); Carbon Dioxide 22 mmol/L (22-30); Chloride 109 mmol/L (98-107); Glucose 101 mg/dL (74-99); Lipase 682 U/L (23-300); Non-African American GFR(CKD) 44 (>60 ml/min/1.73 sqM); Potassium 4.2 mmol/L (3.5-5.1); Sodium 137 mmol/L (137-145); Total Bilirubin 1.9 mg/dL (0.2-1.3); Total Protein 5.8 g/dL (6.3-8.2)
[2024-02-12 03:09] VITALS: BP 118/77; PULSE 79; TEMP 98
[2024-02-12] MEDS ORDERED: chlordiazePOXIDE 25 MG CAP ONE ×3 (09:00→20:21)
[2024-02-12] MEDS ORDERED: GABAPENTIN 300 MG CAP ONE ×3 (09:00→20:20)
[2024-02-12] MEDS ORDERED: PANTOPRAZOLE 40 MG TABLET PO ONE (09:00)
[2024-02-12] MEDS ORDERED: FOLIC ACID 1 MG TAB ONE (09:01)
[2024-02-12] MEDS ORDERED: THIAMINE 100 MG TAB ONE (09:01)
[2024-02-12] MEDS ORDERED: METOPROLOL TARTRATE 25 MG TAB ONE ×3 (09:01→20:21)
[2024-02-12] MEDS ORDERED: SERTRALINE 100 MG TAB ONE (09:01)
[2024-02-12] MEDS ORDERED: cloNIDine HCL 0.1 MG TAB ONE ×2 (09:01→20:21)
[2024-02-12] MEDS ORDERED: LORazepam 2 MG/ML INJ ONE ×5 (13:44→22:37)
[2024-02-12] MEDS ORDERED: SODIUM POLYSTYRENE SULFONATE 15 GM/60 ML BOTTLE ONE ×2 (17:14)
[2024-02-12] MEDS ORDERED: ENOXAPARIN 40 MG/0.4 ML SYRINGE SQ ONE (17:14)
[2024-02-12] MEDS ORDERED: ATORVASTATIN 20 MG TAB ONE (20:21)
[2024-02-12] MEDS ORDERED: QUEtiapine 25 MG TAB ONE (20:21)
[2024-02-12] MEDS ORDERED: CYCLOBENZAPRINE 5 MG TAB ONE (22:38)
[2024-02-12 23:17] LABS: Glucose,Whole Blood 139 mg/dL (70-110)
[2024-02-13] MEDS ORDERED: chlordiazePOXIDE 25 MG CAP ONE ×5 (00:04→21:09)
[2024-02-13] MEDS ORDERED: HALOPERIDOL LACTATE 5 MG/ML 1 ML VIAL ONE ×4 (00:24→04:50)
[2024-02-13] MEDS ORDERED: LORazepam 2 MG/ML INJ ONE ×7 (01:17→22:13)
[2024-02-13] MEDS ORDERED: cloNIDine HCL 0.1 MG TAB ONE ×3 (04:11→21:10)
[2024-02-13] MEDS ORDERED: PANTOPRAZOLE 40 MG TABLET PO ONE (08:17)
[2024-02-13] MEDS ORDERED: METOPROLOL TARTRATE 25 MG TAB ONE ×2 (08:17→21:09)
[2024-02-13] MEDS ORDERED: GABAPENTIN 300 MG CAP ONE ×3 (08:17→21:09)
[2024-02-13] MEDS ORDERED: THIAMINE 100 MG TAB ONE (08:18)
[2024-02-13] MEDS ORDERED: FOLIC ACID 1 MG TAB ONE (08:18)
[2024-02-13] MEDS ORDERED: ENOXAPARIN 40 MG/0.4 ML SYRINGE SQ ONE (08:18)
[2024-02-13] MEDS ORDERED: SERTRALINE 100 MG TAB ONE (08:18)
[2024-02-13] MEDS ORDERED: POTASSIUM CHLORIDE ER 20 MEQ TAB.ER PO ONE ×4 (16:03→18:03)
[2024-02-13] MEDS ORDERED: MAGNESIUM SULFATE-D5W PMX 100 ML IVPB ONE (16:03)
[2024-02-13] MEDS ORDERED: ATORVASTATIN 20 MG TAB ONE (21:10)
[2024-02-13] MEDS ORDERED: QUEtiapine 25 MG TAB ONE (21:10)
[2024-02-14] MEDS ORDERED: LORazepam 2 MG/ML INJ ONE ×4 (03:56→22:00)
[2024-02-14] MEDS ORDERED: PANTOPRAZOLE 40 MG TABLET PO ONE (09:28)
[2024-02-14] MEDS ORDERED: THIAMINE 100 MG TAB ONE (09:28)
[2024-02-14] MEDS ORDERED: GABAPENTIN 300 MG CAP ONE ×3 (09:28→20:06)
[2024-02-14] MEDS ORDERED: METOPROLOL TARTRATE 25 MG TAB ONE ×3 (09:28→20:07)
[2024-02-14] MEDS ORDERED: cloNIDine HCL 0.1 MG TAB ONE ×3 (09:29→20:07)
[2024-02-14] MEDS ORDERED: ENOXAPARIN 40 MG/0.4 ML SYRINGE SQ ONE (09:29)
[2024-02-14] MEDS ORDERED: SERTRALINE 100 MG TAB ONE (09:29)
[2024-02-14] MEDS ORDERED: FOLIC ACID 1 MG TAB ONE (09:29)
[2024-02-14] MEDS ORDERED: chlordiazePOXIDE 25 MG CAP ONE (09:30)
[2024-02-14] MEDS ORDERED: FUROSEMIDE 10 MG/ML 2 ML VIAL ONE ×2 (12:00)
[2024-02-14] MEDS ORDERED: ACETAMINOPHEN TAB 325 MG TAB ONE (20:07)
[2024-02-14] MEDS ORDERED: QUEtiapine 25 MG TAB ONE (20:07)
[2024-02-14] MEDS ORDERED: ATORVASTATIN 20 MG TAB ONE (20:07)
[2024-02-15] MEDS ORDERED: LORazepam 2 MG/ML INJ ONE ×3 (03:38→14:12)
[2024-02-15] MEDS ORDERED: HALOPERIDOL LACTATE 5 MG/ML 1 ML VIAL ONE ×2 (04:13)
[2024-02-15] MEDS ORDERED: FOLIC ACID 1 MG TAB ONE (09:25)
[2024-02-15] MEDS ORDERED: GABAPENTIN 300 MG CAP ONE ×3 (09:25→20:59)
[2024-02-15] MEDS ORDERED: METOPROLOL TARTRATE 25 MG TAB ONE ×2 (09:25→20:59)
[2024-02-15] MEDS ORDERED: PANTOPRAZOLE 40 MG TABLET PO ONE (09:25)
[2024-02-15] MEDS ORDERED: cloNIDine HCL 0.1 MG TAB ONE ×3 (09:25→21:00)
[2024-02-15] MEDS ORDERED: THIAMINE 100 MG TAB ONE (09:25)
[2024-02-15] MEDS ORDERED: SERTRALINE 100 MG TAB ONE (09:26)
[2024-02-15] MEDS ORDERED: ENOXAPARIN 40 MG/0.4 ML SYRINGE SQ ONE (09:26)
[2024-02-15] MEDS ORDERED: LACTULOSE 20 GM/30 ML CUP ONE ×4 (15:48→21:00)
[2024-02-15] MEDS ORDERED: QUEtiapine 25 MG TAB ONE (21:00)
[2024-02-15] MEDS ORDERED: ATORVASTATIN 20 MG TAB ONE (21:00)
[2024-02-16] MEDS ORDERED: LORazepam 2 MG/ML INJ ONE ×5 (02:35→23:32)
[2024-02-16] MEDS ORDERED: HALOPERIDOL LACTATE 5 MG/ML 1 ML VIAL ONE ×4 (03:07→09:03)
[2024-02-16] MEDS ORDERED: PANTOPRAZOLE 40 MG TABLET PO ONE (08:09)
[2024-02-16] MEDS ORDERED: GABAPENTIN 300 MG CAP ONE ×3 (08:09→20:49)
[2024-02-16] MEDS ORDERED: ACETAMINOPHEN TAB 325 MG TAB ONE (08:09)
[2024-02-16] MEDS ORDERED: FOLIC ACID 1 MG TAB ONE (08:10)
[2024-02-16] MEDS ORDERED: THIAMINE 100 MG TAB ONE (08:10)
[2024-02-16] MEDS ORDERED: METOPROLOL TARTRATE 25 MG TAB ONE ×2 (08:10→20:49)
[2024-02-16] MEDS ORDERED: LACTULOSE 20 GM/30 ML CUP ONE ×4 (08:10→20:53)
[2024-02-16] MEDS ORDERED: cloNIDine HCL 0.1 MG TAB ONE ×2 (08:10→20:49)
[2024-02-16] MEDS ORDERED: SERTRALINE 100 MG TAB ONE (08:11)
[2024-02-16] MEDS ORDERED: ENOXAPARIN 40 MG/0.4 ML SYRINGE SQ ONE (08:11)
[2024-02-16 13:13] LABS: Glucose,Whole Blood 124 mg/dL (70-110)
[2024-02-16] MEDS ORDERED: QUEtiapine 25 MG TAB ONE (20:49)
[2024-02-16] MEDS ORDERED: ATORVASTATIN 20 MG TAB ONE (20:50)
[2024-02-17] MEDS ORDERED: LORazepam 2 MG/ML INJ ONE ×4 (05:03→18:42)
[2024-02-17] MEDS ORDERED: PANTOPRAZOLE 40 MG TABLET PO ONE (09:20)
[2024-02-17] MEDS ORDERED: THIAMINE 100 MG TAB ONE (09:20)
[2024-02-17] MEDS ORDERED: cloNIDine HCL 0.1 MG TAB ONE ×2 (09:20→20:43)
[2024-02-17] MEDS ORDERED: ACETAMINOPHEN TAB 325 MG TAB ONE (09:20)
[2024-02-17] MEDS ORDERED: METOPROLOL TARTRATE 25 MG TAB ONE ×2 (09:20→20:43)
[2024-02-17] MEDS ORDERED: GABAPENTIN 300 MG CAP ONE ×3 (09:20→20:42)
[2024-02-17] MEDS ORDERED: SERTRALINE 100 MG TAB ONE (09:21)
[2024-02-17] MEDS ORDERED: LACTULOSE 20 GM/30 ML CUP ONE ×6 (09:21→20:43)
[2024-02-17] MEDS ORDERED: FOLIC ACID 1 MG TAB ONE (09:21)
[2024-02-17] MEDS ORDERED: ENOXAPARIN 40 MG/0.4 ML SYRINGE SQ ONE (09:21)
[2024-02-17] MEDS ORDERED: ATORVASTATIN 20 MG TAB ONE (20:43)
[2024-02-17] MEDS ORDERED: QUEtiapine 25 MG TAB ONE (20:43)
[2024-02-18] MEDS ORDERED: LORazepam 2 MG/ML INJ ONE (00:53)
[2024-02-18] MEDS ORDERED: PANTOPRAZOLE 40 MG TABLET PO ONE ×2 (09:23→09:27)
[2024-02-18] MEDS ORDERED: GABAPENTIN 300 MG CAP ONE ×3 (09:23→22:07)
[2024-02-18] MEDS ORDERED: METOPROLOL TARTRATE 25 MG TAB ONE ×2 (09:23→22:07)
[2024-02-18] MEDS ORDERED: THIAMINE 100 MG TAB ONE (09:24)
[2024-02-18] MEDS ORDERED: cloNIDine HCL 0.1 MG TAB ONE ×3 (09:24→22:07)
[2024-02-18] MEDS ORDERED: FOLIC ACID 1 MG TAB ONE (09:24)
[2024-02-18] MEDS ORDERED: SERTRALINE 100 MG TAB ONE (09:24)
[2024-02-18] MEDS ORDERED: LACTULOSE 20 GM/30 ML CUP ONE ×6 (09:25→22:09)
[2024-02-18] MEDS ORDERED: ENOXAPARIN 40 MG/0.4 ML SYRINGE SQ ONE (09:27)
[2024-02-18] MEDS ORDERED: LORazepam 0.5 MG TAB ONE ×2 (11:44)
[2024-02-18] MEDS ORDERED: methylPREDNISolone SOD SUCCI 125 MG/2 ML VIAL ONE ×2 (17:56→23:28)
[2024-02-18] MEDS ORDERED: LORazepam 1 MG TAB ONE ×2 (18:21)
[2024-02-18 20:03] LABS: Glucose,Whole Blood 138 mg/dL (70-110)
[2024-02-18] MEDS ORDERED: QUEtiapine 25 MG TAB ONE (22:07)
[2024-02-18] MEDS ORDERED: ATORVASTATIN 20 MG TAB ONE (22:08)
[2024-02-19 06:14] LABS: Glucose,Whole Blood 154 mg/dL (70-110)
[2024-02-19] MEDS ORDERED: methylPREDNISolone SOD SUCCI 125 MG/2 ML VIAL ONE ×4 (06:36→23:18)
[2024-02-19] MEDS ORDERED: INSULIN ASPART (NovoLOG) 100 UNIT/ML VIAL SQ ONE ×4 (06:37→21:16)
[2024-02-19] MEDS ORDERED: PANTOPRAZOLE 40 MG TABLET PO ONE (08:16)
[2024-02-19] MEDS ORDERED: cloNIDine HCL 0.1 MG TAB ONE ×3 (08:16→21:15)
[2024-02-19] MEDS ORDERED: THIAMINE 100 MG TAB ONE (08:16)
[2024-02-19] MEDS ORDERED: GABAPENTIN 300 MG CAP ONE ×3 (08:16→21:14)
[2024-02-19] MEDS ORDERED: METOPROLOL TARTRATE 25 MG TAB ONE ×2 (08:16→21:14)
[2024-02-19] MEDS ORDERED: SERTRALINE 100 MG TAB ONE (08:17)
[2024-02-19] MEDS ORDERED: ENOXAPARIN 40 MG/0.4 ML SYRINGE SQ ONE (08:17)
[2024-02-19] MEDS ORDERED: LACTULOSE 20 GM/30 ML CUP ONE ×6 (08:17→21:15)
[2024-02-19] MEDS ORDERED: FOLIC ACID 1 MG TAB ONE (08:17)
[2024-02-19] MEDS ORDERED: LORazepam 0.5 MG TAB ONE ×2 (08:32)
[2024-02-19] MEDS ORDERED: LORazepam 1 MG TAB ONE ×2 (15:43)
[2024-02-19] MEDS ORDERED: IPRATROPIUM-ALBUTEROL 3 ML NEB ONE ×2 (19:09)
[2024-02-19] MEDS ORDERED: QUEtiapine 25 MG TAB ONE (21:15)
[2024-02-19] MEDS ORDERED: ATORVASTATIN 20 MG TAB ONE (21:16)
[2024-02-19] MEDS ORDERED: SYMBICORT 160-4.5 MCG INHALER INHALATION ONE (23:59)
[2024-02-20] MEDS ORDERED: LORazepam 1 MG TAB ONE ×8 (02:47→23:43)
[2024-02-20] MEDS ORDERED: methylPREDNISolone SOD SUCCI 125 MG/2 ML VIAL ONE ×4 (06:40→23:44)
[2024-02-20] MEDS ORDERED: IPRATROPIUM-ALBUTEROL 3 ML NEB ONE ×6 (07:52→15:14)
[2024-02-20] MEDS ORDERED: GABAPENTIN 300 MG CAP ONE ×3 (08:11→21:08)
[2024-02-20] MEDS ORDERED: CYCLOBENZAPRINE 5 MG TAB ONE (08:12)
[2024-02-20] MEDS ORDERED: METOPROLOL TARTRATE 25 MG TAB ONE ×2 (08:12→21:08)
[2024-02-20] MEDS ORDERED: THIAMINE 100 MG TAB ONE (08:12)
[2024-02-20] MEDS ORDERED: chlordiazePOXIDE 25 MG CAP ONE (08:12)
[2024-02-20] MEDS ORDERED: cloNIDine HCL 0.1 MG TAB ONE ×3 (08:12→21:08)
[2024-02-20] MEDS ORDERED: PANTOPRAZOLE 40 MG TABLET PO ONE (08:12)
[2024-02-20] MEDS ORDERED: FOLIC ACID 1 MG TAB ONE (08:13)
[2024-02-20] MEDS ORDERED: SERTRALINE 100 MG TAB ONE (08:13)
[2024-02-20] MEDS ORDERED: ENOXAPARIN 30 MG/0.3 ML SYRINGE SQ ONE (08:26)
[2024-02-20] MEDS ORDERED: LACTULOSE 20 GM/30 ML CUP ONE ×6 (08:26→21:09)
[2024-02-20] MEDS ORDERED: HALOPERIDOL LACTATE 5 MG/ML 1 ML VIAL ONE ×2 (19:23)
[2024-02-20] MEDS ORDERED: QUEtiapine 25 MG TAB ONE (21:09)
[2024-02-20] MEDS ORDERED: ATORVASTATIN 20 MG TAB ONE (21:09)
[2024-02-20] MEDS ORDERED: INSULIN ASPART (NovoLOG) 100 UNIT/ML VIAL SQ ONE (21:10)
[2024-02-21] MEDS ORDERED: HALOPERIDOL LACTATE 5 MG/ML 1 ML VIAL ONE ×4 (01:03→11:14)
[2024-02-21] MEDS ORDERED: IPRATROPIUM-ALBUTEROL 3 ML NEB ONE ×4 (03:07→18:43)
[2024-02-21] MEDS ORDERED: LORazepam 1 MG TAB ONE ×6 (03:15→20:14)
[2024-02-21] MEDS ORDERED: methylPREDNISolone SOD SUCCI 125 MG/2 ML VIAL ONE ×3 (06:46→23:52)
[2024-02-21] MEDS ORDERED: GABAPENTIN 300 MG CAP ONE ×3 (09:07→20:14)
[2024-02-21] MEDS ORDERED: PANTOPRAZOLE 40 MG TABLET PO ONE (09:08)
[2024-02-21] MEDS ORDERED: MULTIVITAMINS, THERA 1 EACH TAB ONE (09:08)
[2024-02-21] MEDS ORDERED: cloNIDine HCL 0.1 MG TAB ONE ×3 (09:08→20:15)
[2024-02-21] MEDS ORDERED: THIAMINE 100 MG TAB ONE (09:08)
[2024-02-21] MEDS ORDERED: METOPROLOL TARTRATE 25 MG TAB ONE ×2 (09:08→20:14)
[2024-02-21] MEDS ORDERED: LACTULOSE 20 GM/30 ML CUP ONE ×4 (09:09→20:15)
[2024-02-21] MEDS ORDERED: SERTRALINE 100 MG TAB ONE (09:09)
[2024-02-21] MEDS ORDERED: ENOXAPARIN 40 MG/0.4 ML SYRINGE SQ ONE (09:09)
[2024-02-21] MEDS ORDERED: FOLIC ACID 1 MG TAB ONE (09:10)
[2024-02-21] MEDS ORDERED: amLODIPine 5 MG TAB ONE (09:10)
[2024-02-21] MEDS ORDERED: INSULIN ASPART (NovoLOG) 100 UNIT/ML VIAL SQ ONE (16:41)
[2024-02-21] MEDS ORDERED: QUEtiapine 25 MG TAB ONE (20:15)
[2024-02-21] MEDS ORDERED: ATORVASTATIN 20 MG TAB ONE (20:15)
[2024-02-22] MEDS ORDERED: methylPREDNISolone SOD SUCCI 125 MG/2 ML VIAL ONE (06:17)
[2024-02-22] MEDS ORDERED: INSULIN ASPART (NovoLOG) 100 UNIT/ML VIAL SQ ONE (06:17)
[2024-02-22] MEDS ORDERED: cloNIDine HCL 0.1 MG TAB ONE ×3 (08:17→19:48)
[2024-02-22] MEDS ORDERED: PANTOPRAZOLE 40 MG TABLET PO ONE ×2 (08:17→08:26)
[2024-02-22] MEDS ORDERED: LACTULOSE 20 GM/30 ML CUP ONE ×4 (08:17→19:48)
[2024-02-22] MEDS ORDERED: THIAMINE 100 MG TAB ONE (08:17)
[2024-02-22] MEDS ORDERED: GABAPENTIN 300 MG CAP ONE ×3 (08:17→21:57)
[2024-02-22] MEDS ORDERED: METOPROLOL TARTRATE 25 MG TAB ONE ×3 (08:17→19:54)
[2024-02-22] MEDS ORDERED: SERTRALINE 100 MG TAB ONE (08:18)
[2024-02-22] MEDS ORDERED: amLODIPine 5 MG TAB ONE (08:18)
[2024-02-22] MEDS ORDERED: ATORVASTATIN 20 MG TAB ONE ×2 (08:18→19:48)
[2024-02-22] MEDS ORDERED: QUEtiapine 25 MG TAB ONE ×2 (08:18→19:54)
[2024-02-22] MEDS ORDERED: FOLIC ACID 1 MG TAB ONE (08:18)
[2024-02-22] MEDS ORDERED: ENOXAPARIN 40 MG/0.4 ML SYRINGE SQ ONE (08:18)
[2024-02-22] MEDS ORDERED: MULTIVITAMINS, THERA 1 EACH TAB ONE (08:20)
[2024-02-22] MEDS ORDERED: ACETAMINOPHEN TAB 325 MG TAB ONE (21:57)
[2024-02-23] MEDS ORDERED: IPRATROPIUM-ALBUTEROL 3 ML NEB ONE ×2 (04:38)
[2024-02-23] MEDS ORDERED: amLODIPine 5 MG TAB ONE (09:17)
[2024-02-23] MEDS ORDERED: LACTULOSE 20 GM/30 ML CUP ONE ×2 (09:17)
[2024-02-23] MEDS ORDERED: MULTIVITAMINS, THERA 1 EACH TAB ONE (09:19)
[2024-02-23] MEDS ORDERED: GABAPENTIN 300 MG CAP ONE (09:19)
[2024-02-23] MEDS ORDERED: THIAMINE 100 MG TAB ONE (09:19)
[2024-02-23] MEDS ORDERED: PANTOPRAZOLE 40 MG TABLET PO ONE (09:19)
[2024-02-23] MEDS ORDERED: METOPROLOL TARTRATE 25 MG TAB ONE (09:19)
[2024-02-23] MEDS ORDERED: cloNIDine HCL 0.1 MG TAB ONE (09:19)
[2024-02-23] MEDS ORDERED: SERTRALINE 100 MG TAB ONE (09:20)
[2024-02-23] MEDS ORDERED: FOLIC ACID 1 MG TAB ONE (09:20)
[2024-02-23] MEDS ORDERED: ENOXAPARIN 40 MG/0.4 ML SYRINGE SQ ONE (09:20)
[2024-02-23] MEDS ORDERED: predniSONE 10 MG TAB ONE (09:24)
--- NOTE | 2024-03-05 08:28 | CT ---
DATE OF EXAM: 02/12/2024 EXAM: CT head without contrast INDICATION: Patient age:JESSICA TOURE : 1975 Reason for study: Altered mental status. COMPARISON: No None, please note PACS downtime occurred during the radiologist interpretation of thes e images with limited priors/reports. ne. TECHNIQUE: Multiple axial CT images of the brain were obtained without IV contrast. One or more CT do se reduction strategies were utilized during this examination. Total DLP administered was 1256 mGycm. FINDINGS: Extra-axial spaces: No abnormal extra-axial fluid collections. Ventricular system: Within normal limits Cerebral parenchyma: No acute intraparenchymal hemorrhage or mass effect. The dolan-white junction is well differentiated. 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 Cerebellum: Unremarkable. Mass effect: No evidence of midline shift. Intracranial vasculature: unremarkable Soft tissues: Posterior left scalp edema. Calvarium/osseous structures: No depressed skull fracture. Paranasal sinuses and mastoid air cells: Clear. Visualized orbits: Orbital contents are intact. IMPRESSION: 1. No acute intracranial process. 2. Posterior scalp edema. No evidence of fracture. 3. 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 This could be confirmed with MRI. Called findings to DR parks 738pm 02/12/2024
[2024-03-06 13:07] LABS: Glucose 91 mg/dL (74-99); Sodium 137 mmol/L (137-145)
[2024-03-06 13:10] LABS: African American GFR (CKD) 54 (>60 ml/min/1.73 sqM); Anion Gap 6 mmol/L; Blood Urea Nitrogen 47 mg/dL (9-20); Calcium 9.5 mg/dL (8.4-10.2); Carbon Dioxide 15 mmol/L (22-30); Chloride 116 mmol/L (98-107); Magnesium 2.1 mg/dL (1.6-2.3); Non-African American GFR(CKD) 47 (>60 ml/min/1.73 sqM); Potassium 6.1 mmol/L (3.5-5.1)
--- NOTE | 2024-03-25 08:40 | XR ---
Site ID [facility] Patient Federico Franks ID [id number] EXAMINATION TYPE: XR chest 1V DATE OF EXAM: 02/18/2024 12:42 PM CLINICAL INDICATION: Shortness of breath COMPARISON: THIS EXAM WAS READ DURING PACS DOWNTIME, NO PRIORS AVAILABLE. TECHNIQUE: XR chest 1V Frontal view of the chest. FINDINGS: Lungs/Pleura: There is no evidence of pleural effusion, focal consolidation, or pneumothorax. Pulmonary vascularity: Unremarkable. Heart/mediastinum: Cardiomediastinal silhouette is unremarkable. Musculoskeletal: No acute osseous pathology. IMPRESSION: No acute cardiopulmonary disease/process.
== END 2024-02-23 12:34 | disposition home or self-care (01) | DRG 775 ==
LOC: EC 20:32 → 6NMEDSUR 02-08 00:42 → OBSVTOIN 02-08 00:43 → 6NMEDSUR 02-08 06:50 → 3SCARD 02-10 12:20
PROVIDERS: ADMIT Hospitalist; ATTEND Hospitalist
DX: F10.231 Alcohol dependence with withdrawal delirium (principal); N17.9 Acute kidney failure, unspecified; F10.229 Alcohol dependence with intoxication, unspecified; F10.221 Alcohol dependence with intoxication delirium; Y90.4 Blood alcohol level of 80-99 mg/100 ml; G93.41 Metabolic encephalopathy; I10 Essential (primary) hypertension; J45.901 Unspecified asthma with (acute) exacerbation; K85.20 Alcohol induced acute pancreatitis without necrosis or infection; E86.1 Hypovolemia; K59.00 Constipation, unspecified; E87.1 Hypo-osmolality and hyponatremia; E87.6 Hypokalemia; F17.200 Nicotine dependence, unspecified, uncomplicated; F41.9 Anxiety disorder, unspecified; I25.10 Atherosclerotic heart disease of native coronary artery without angina pectoris; Y04.0XXA Assault by unarmed brawl or fight, initial encounter; S05.10XA Contusion of eyeball and orbital tissues, unspecified eye, initial encounter; Z79.899 Other long term (current) drug therapy
CPT/HCPCS: 36415; 70450; 70480; 71045; 74160; 80048; 80053; 80320; 82140; 82150; 83690; 83735; 84132; 84145; 85025; 85027; 87040; 94640; 94760; 96361; 96374; 96375; 96376; 99285

== ENCOUNTER 2024-09-25 08:52 | Inpatient (IN) | payer OTHER ==
--- NOTE | 2024-09-25 09:09 | ED ---
Chest Pain HPI - General Chief Complaint: Chest Pain Stated Complaint: chest pain Time Seen by Provider: 09/25/24 09:00 Source: patient, RN notes reviewed Mode of arrival: wheelchair Limitations: no limitations - History of Present Illness Initial Comments: 49-year-old male presents emergency department complaint of upper abdominal, chest pain. Patient states that started last couple days he states he is concerned about possible pancreatitis. Patient states he has a history of pancreatitis and states he had been drinking recently. He states he only drank 2 beers yesterday. Patient states that he did drink heavily over the weekend he denies any prior cardiac disease he denies any definite withdrawal symptoms of time but has had in the past states has been intubated twice. Patient denies fevers or chills denies any change in bowel habits. - Related Data Home Medications Medication Instructions Recorded Confirmed Folic Acid 1 mg PO DAILY 10/23/23 02/08/24 Rosuvastatin [Crestor] 10 mg PO HS 10/23/23 02/08/24 Sertraline [Zoloft] 100 mg PO DAILY 10/23/23 02/08/24 Cyclobenzaprine [Flexeril] 5 mg PO TID PRN 02/08/24 02/08/24 Gabapentin 300 mg PO TID 02/08/24 02/08/24 Metoprolol Tartrate [Lopressor] 25 mg PO BID 02/08/24 02/08/24 QUEtiapine [SEROquel] 25 mg PO HS 02/08/24 02/08/24 Previous Rx's Medication Instructions Recorded Pantoprazole [Protonix] 40 mg PO DAILY #30 tab 11/27/23 Verapamil [Isoptin] 80 mg PO TID tab 11/27/23 Allergies Allergy/AdvReac Type Severity Reaction Status Date / Time No Known Allergies Allergy Verified 09/25/24 08:58 Review of Systems ROS Statement: Those systems with pertinent positive or pertinent negative responses have been documented in the HPI. ROS Other: All systems not noted in ROS Statement are negative. EKG Findings - EKG Comments: EKG Findings:: EKG performed 8: 59 sinus tachycardia rate of 120 MD 143 QRS 76 QT/QTc 279/350 - EKG Results: EKG: interpreted by BARAK Past Medical History Past Medical History: Coronary Artery Disease (CAD), Hyperlipidemia, Hypertension Additional Past Medical History / Comment(s): pancreatitis History of Any Multi-Drug Resistant Organisms: None Reported Past Surgical History: No Surgical Hx Reported Additional Past Surgical History / Comment(s): tracheostomy and peg placed and reversed in 2023 Past Anesthesia/Blood Transfusion Reactions: Unable to Obtain Past Psychological History: Anxiety Smoking Status: Current every day smoker Past Alcohol Use History: Abuse, Daily, Heavy Past Drug Use History: None Reported General Exam Limitations: no limitations General appearance: alert, in no apparent distress Head exam: Present: atraumatic, normocephalic, normal inspection Eye exam: Present: normal appearance, PERRL, EOMI. Absent: scleral icterus, conjunctival injection, periorbital swelling ENT exam: Present: normal exam, normal oropharynx, mucous membranes moist Neck exam: Present: normal inspection, full ROM. Absent: tenderness, meningismus, lymphadenopathy Respiratory exam: Present: normal lung sounds bilaterally. Absent: respiratory distress, wheezes, rales, rhonchi, stridor Cardiovascular Exam: Present: normal rhythm, tachycardia, normal heart sounds. Absent: systolic murmur, diastolic murmur, rubs, gallop, clicks GI/Abdominal exam: Present: soft, tenderness, normal bowel sounds. Absent: distended, guarding, rebound, rigid Course Vital Signs 09/25/24 08:53 Temperature 98.5 F Pulse Rate 98 Respiratory 18 Rate Blood Pressure 124/90 O2 Sat by Pulse 97 Oximetry Chest Pain MDM - MDM Was pt. sent in by a medical professional or institution ([facility], [facility], urgent care, hospital, or senior living...) When possible be specific @ -No Did you speak to anyone other than the patient for history (EMS, parent, family, police, friend...)? What history was obtained from this source @ -No Did you review nursing and triage notes (agree or disagree)? Why? @ -I reviewed and agree with nursing and triage notes Were old charts reviewed (outside hosp., previous admission, EMS record, old EKG, old radiological studies, urgent care reports/EKG's, senior living records)? Report findings @ -No old charts were reviewed Differential Diagnosis (chest pain, altered mental status, abdominal pain women, abdominal pain men, vaginal bleeding, weakness, fever, dyspnea, syncope, headache, dizziness, GI bleed, back pain, seizure, CVA, palpatations, mental health, musculoskeletal)? @ -Differential Chest Pain: Stable Angina, Unstable Angina, STEMI, NSTEMI Aortic Dissection, Pneumothorax, Musculoskeletal, Esophageal Spasm GERD, Cholecystitis, Pancreatitis, Zoster, this is not meant to be an all-inclusive list. EKG interpreted by me (3pts min.). @ -As above X-rays interpreted by me (1pt min.). @ -Chest x-ray shows no acute cardiopulmonary process CT interpreted by me (1pt min.). @ -None done U/S interpreted by me (1pt. min.). @ -None done What testing was considered but not performed or refused? (CT, X-rays, U/S, labs)? Why? @ -None What meds were considered but not given or refused? Why? @ -None Did you discuss the management of the patient with other professionals (professionals i.e. , PA, [facility] [facility], lab, RT, psych nurse, social sciences chair, manager outreach, teacher, armor officer, shelter case manager)? Give summary @ -Dr. Renteria for admission Was smoking cessation discussed for >3mins.? @ -No Was critical care preformed (if so, how long)? @ -No Were there social determinants of health that impacted care today? How? (Homelessness, low income, unemployed, alcoholism, drug addiction, transportation, low edu. Level, literacy, decrease access to med. care, long-term, rehab)? @ -No Was there de-escalation of care discussed even if they declined (Discuss DNR or withdrawal of care, Hospice)? DNR status @ -No What co-morbidities impacted this encounter? (DM, HTN, Smoking, COPD, CAD, Cancer, CVA, ARF, Chemo, Hep., AIDS, mental health diagnosis, sleep apnea, morbid obesity)? @ -None Was patient admitted / discharged? Hospital course, mention meds given and route, prescriptions, significant lab abnormalities, going to OR and other pe rtinent info. @ -Admitted patient's found to have acute pancreatitis, patient is currently acutely intoxicated. Patient has alcoholic pancreatitis to be admitted for IV fluids, CIWA, Ativan withdrawal. Undiagnosed new problem with uncertain prognosis? @ -No Drug Therapy requiring intensive monitoring for toxicity (Heparin, Nitro, Insulin, Cardizem)? @ -No Were any procedures done? @ -No Diagnosis/symptom? @ -Acute pancreatitis, alcohol intoxication Acute, or Chronic, or Acute on Chronic? @ -Acute Uncomplicated (without systemic symptoms) or Complicated (systemic symptoms)? @ -Complicated Side effects of treatment? @ -No Exacerbation, Progression, or Severe Exacerbation? @ -No Poses a threat to life or bodily function? How? (Chest pain, [place], [place], pneumonia, PE, COPD, DKA, ARF, appy, cholecystitis, CVA, Diverticulitis, Homicidal, Suicidal, threat to staff... and all critical care pts) @ -No Disposition Clinical Impression: Pancreatitis, acute, Alcohol intoxication, Alcohol abuse Disposition: ADMITTED IP TO THIS HOSP Condition: Fair Referrals: Saida Corado MD [Primary Care Provider] - 1-2 days Time of Disposition: 10:19
[2024-09-25] MEDS: HYDROmorphone 0.5 MG/0.5 ML SYRINGE IVP STA (09:24)
[2024-09-25] MEDS: ONDANSETRON 4 MG/2 ML VIAL IVP STA (09:24)
[2024-09-25] MEDS: SODIUM CHLORIDE 0.9% 1,000 ML IV STA ×2 (09:25→09:32)
[2024-09-25 09:37] LABS: Basophils % (A) 0 %; Eosinophils # (A) 0.2 k/uL (0-0.7); Eosinophils % (A) 2 %; HCT 39.4 % (39.0-53.0); HGB 13.1 gm/dL (13.0-17.5); Lymphocytes # (A) 1.6 k/uL (1.0-4.8); Lymphocytes % (A) 16 %; MCH 30.8 pg (25.0-35.0); MCHC 33.2 g/dL (31.0-37.0); MCV 92.8 fL (80.0-100.0); Mean Platelet Volume 7.4; Monocytes # (A) 0.7 k/uL (0-1.0); Monocytes % (A) 7 %; Neutrophils # (A) 7.5 k/uL (1.3-7.7); Neutrophils % (A) 74 %; Platelet Count 224 k/uL (150-450); RBC 4.24 m/uL (4.30-5.90); RDW 14.2 % (11.5-15.5); WBC 10.2 k/uL (3.8-10.6)
--- NOTE | 2024-09-25 09:46 | XR ---
EXAMINATION TYPE: XR chest 2V DATE OF EXAM: 09/25/2024 9:39 AM COMPARISON: Chest radiographs from 02/18/2024. CLINICAL INDICATION: Male, 49 years old with history of Chest Pain; TECHNIQUE: XR chest 2V Frontal and lateral views of the chest. FINDINGS: Lungs/Pleura: There is no evidence of pleural effusion, focal consolidation, or pneumothorax. Pulmonary vascularity: Unremarkable. Heart/mediastinum: Cardiomediastinal silhouette is unremarkable. Musculoskeletal: No acute osseous pathology. IMPRESSION: No acute cardiopulmonary disease/process. [facility], , 09/25/2024 9:44 AM
[2024-09-25 09:51] LABS: ALT 35 U/L (4-49); African American GFR (CKD) >90 (>60 ml/min/1.73 sqM); Albumin 4.7 g/dL (3.5-5.0); Anion Gap 16 mmol/L; Blood Urea Nitrogen 15 mg/dL (9-20); Calcium 9.1 mg/dL (8.4-10.2); Carbon Dioxide 23 mmol/L (22-30); Chloride 94 mmol/L (98-107); Glucose 98 mg/dL (74-99); Non-African American GFR(CKD) 79 (>60 ml/min/1.73 sqM); Sodium 133 mmol/L (137-145); Total Bilirubin 0.9 mg/dL (0.2-1.3); Total Protein 7.5 g/dL (6.3-8.2)
[2024-09-25 10:03] LABS: INR 0.9 (<1.2); Partial Thromboplastin Time 24.3 sec (22.0-30.0)
[2024-09-25 10:08] LABS: Alcohol 233 mg/dL; Potassium 4.1 mmol/L (3.5-5.1)
[2024-09-25 10:09] LABS: AST 48 U/L (17-59); Alkaline Phosphatase 110 U/L (38-126); Magnesium 1.7 mg/dL (1.6-2.3)
[2024-09-25 10:12] LABS: Lipase 4880 U/L (23-300)
[2024-09-25] MEDS ORDERED: NALOXONE 0.4 MG/ML 1 ML VIAL IV PRN (10:21)
[2024-09-25] MEDS ORDERED: LORazepam 2 MG/ML INJ IV PRN ×2 (10:22)
[2024-09-25] MEDS: SODIUM CHLORIDE 0.9% 1,000 ML IV SCH (10:43)
--- NOTE | 2024-09-25 11:24 | P.HPIM ---
History of Present Illness H&P Date: 09/25/24 History of Presenting Illness: Patient is a pleasant 49-year-old male with a past medical history of daily alcohol abuse, alcoholic pancreatitis, hypertension, hyperlipidemia, GERD, anxiety, and nicotine dependence. He presented to the emergency department with a chief complaint of epigastric pain. Patient reports longstanding history of alcohol abuse drinking previously 12 tall boys a day and recently reports cutting back to approximately 4 tall boys per day. He reports epigastric pain beginning yesterday evening accompanied by nausea and acid reflux. Patient reports concerns for pancreatitis again. He denies having any fevers, chills, diaphoresis, headache, lightheadedness, dizziness, chest pain, palpitations, shortness of breath, or experiencing any difficulties with or changes in his urinary function. Patient reports he drank 4 tall boys yesterday with last drink being yesterday afternoon. Upon arrival to our facility, patient underw ent evaluation in the emergency department. Vital signs upon arrival show blood pressure 124/90, heart rate 98, respiratory rate 18, temp 90.5 F, and SpO2 of 97% on room air. EKG completed showing sinus tachycardia 120 bpm with no significant T wave or ST abnormalities upon personal review and interpretation. Chest x-ray completed negative for acute cardiopulmonary process. Labs completed and reviewed. CBC unremarkable. Coagulation profile normal findings. BMP showing hypochloremic hyponatremia with sodium of 133, chloride of 94, bicarb of 23, and anion gap elevated at 16. Troponin was negative at less than 0.012. Magnesium slightly low at 1.7. Lipase was elevated at 4880 and serum alcohol level also elevated at 233. Patient was admitted under our services for alcoholic pancreatitis. Review of systems: Pertinent positives and negatives as discussed in HPI, a complete review of systems was performed and all other systems are negative. Physical exam: Vital signs reviewed and stable. General: Nontoxic, no distress and appears stated age. Derm: Skin warm and dry, normal coloration for ethnicity. Head: Atraumatic, normocephalic and symmetric. Eyes: EOM's intact, no lid lag, and anicteric sclera Mouth: no lip lesions, mucus membranes moist Cardiovascular: regular rate and rhythm with normal S1S2, no murmur, positive posterior tibial pulses bilaterally, and cap refill < 2 seconds. Lungs: Respirations even, regular, and unlabored on room air. Lungs CTA bilaterally, no rhonchi, no rales, no wheezing, and no accessory muscle usage. Abdominal: soft, mild abdominal tenderness reported to epigastric and left upper quadrant, no guarding, no appreciable organomegaly Ext: ROM intact. No gross muscle atrophy, no edema, no contractures Neuro: Speech clear, face symmetrical and CN II-XII grossly intact with no noted focal neuro deficits Psych: Alert and oriented to person, place, time, and situation. Appropriate and pleasant affect. Assessment and Plan of Care: Alcoholic pancreatitis Alcohol intoxication in active alcoholic, pending withdrawal Hypomagnesemia Hypochloremic hyponatremia -Order placed for monitoring of CIWA scores and patient to be medicated with Ativan 0.5 mg every 4 hours as needed for CIWA score of 4-5, Ativan 1 mg every 4 hours for CIWA score of 6-7, Ativan 2 mg every 3 hours CIWA score of 8-9, and Ativan 2 mg every 2 hours forr CIWA score of 10 or greater. -Aggressive IV fluid hydration with lactated Ringer's at 150 cc/h. -Symptomatic care and pain management with Toradol 15 mg IVP every 6 hours as needed for moderate pain and Dilaudid 0.5 mg IVP every 4 hours as needed for severe pain. -Zofran 4 mg IVP every 8 hours as needed for nausea or vomiting. -Thiamine 100 mg daily, and Multivitamin daily, and Folate 1 mg daily -Seizure, fall, aspiration, and elopement precautions in place. -Continued close monitoring of electrolytes and replace as needed. -Telemetry monitoring. -GI prophylaxis with Protonix -Pending improvement of patient's pain, if continues and/or no improvement we will order CT abdomen and pelvis. Currently patient reports improvement of pain since arrival to our facility. Nicotine dependence -Recommend smoking cessation and order placed for nicotine patch 21 mg daily Data and imaging reviewed: -As stated above in HPI. The patient is admitted with an anticipated greater than 2 midnight stay for evaluation of alcoholic pancreatitis CODE STATUS full code DVT prophylaxis: Lovenox Discussed with: Patient, ED physician, and RN Anticipated discharge date: Pending clinical course Anticipated discharge place: Home Patient was seen independently by Nurse Practitioner. This document was prepared using [employer] dictation software. Please allow for errors in fuel oil clerk while rare they do occur. Seth Lopez NP rendered care for this patient independently, reviewed the fin dings and plan as documented in the note above and agree with plan. I did not physically speak with or examine the patient on this date. Past Medical History Past Medical History: Coronary Artery Disease (CAD), Hyperlipidemia, Hypertension Additional Past Medical History / Comment(s): pancreatitis History of Any Multi-Drug Resistant Organisms: None Reported Past Surgical History: No Surgical Hx Reported Additional Past Surgical History / Comment(s): tracheostomy and peg placed and reversed in 2023 Past Anesthesia/Blood Transfusion Reactions: Unable to Obtain Past Psychological History: Anxiety Smoking Status: Current every day smoker Past Alcohol Use History: Abuse, Daily, Heavy Past Drug Use History: None Reported Medications and Allergies Home Medications Medication Instructions Recorded Confirmed Type Folic Acid 1 mg PO DAILY 10/23/23 09/25/24 History Rosuvastatin [Crestor] 10 mg PO HS 10/23/23 09/25/24 History Pantoprazole [Protonix] 40 mg PO DAILY #30 tab 11/27/23 09/25/24 Rx Lisinopril-Hctz 20-25 mg 1 tab PO DAILY 09/25/24 09/25/24 History [Zestoretic ] Verapamil HCl [Verapamil Sr] 120 mg PO DAILY 09/25/24 09/25/24 History busPIRone HCL 15 mg PO BID 09/25/24 09/25/24 History Allergies Allergy/AdvReac Type Severity Reaction Status Date / Time No Known Allergies Allergy Verified 09/25/24 11:35 Physical Exam Vitals: Vital Signs Temp Pulse Resp BP Pulse Ox 09/25/24 10:43 99 18 117/84 100 09/25/24 08:53 98.5 F 98 18 124/90 97 Intake and Output 09/24/24 09/25/24 09/25/24 22:59 06:59 14:59 Other: Weight 69.853 kg Results CBC & Chem 7: 09/25/24 09:22 09/25/24 09:22 Labs: Abnormal Lab Results - Last 24 Hours (Table) 09/25/24 09/25/24 Range/Units 09:22 09:22 RBC 4.24 L (4.30-5.90) m/uL Sodium 133 L (137-145) mmol/L Chloride 94 L (98-107) mmol/L Lipase 4880 H (23-300) U/L Serum Alcohol 233 H* mg/dL
[2024-09-25] MEDS: MAGNESIUM SULFATE-D5W PMX 1 GM in DEXTROSE/WATER 1 100ML.BAG IVPB SCH (12:22)
[2024-09-25] MEDS: LACTATED RINGERS 1,000 ML IV SCH (12:22)
[2024-09-25] MEDS: LORazepam 0.5 MG TAB PO PRN (12:52)
[2024-09-25] MEDS: HYDROmorphone 0.5 MG/0.5 ML SYRINGE IVP PRN (16:47)
[2024-09-25] MEDS: LORazepam 2 MG/ML INJ IV PRN (16:47)
[2024-09-25] MEDS: KETOROLAC 15 MG/ML 1 ML VIAL IVP PRN (22:27)
[2024-09-25] MEDS: NICOTINE 21MG/24HR PATCH TRANSDERM SCH (22:37)
[2024-09-25] MEDS: PANTOPRAZOLE 40 MG/10 ML VIAL IVP SCH (22:37)
[2024-09-26] MEDS ORDERED: LORazepam 1 MG/0.5 ML VIAL IV PRN ×3 (05:24→05:26)
[2024-09-26] MEDS: THIAMINE 100 MG TAB PO SCH (08:21)
[2024-09-26] MEDS: ENOXAPARIN 40 MG/0.4 ML SYRINGE SQ SCH (08:22)
[2024-09-26 08:34] LABS: ALT 20 U/L (10-49); AST 26 U/L (14-35); Albumin 3.5 g/dL (3.8-4.9); Albumin/Globulin Ratio 1.94 Ratio (1.60-3.17); Alkaline Phosphatase 112 U/L (41-126); Calcium 8.6 mg/dL (8.7-10.3); Carbon Dioxide 25.8 mmol/L (21.6-31.8); Chloride 99 mmol/L (96-109); Globulin 1.8 g/dL (1.6-3.3); Glucose 99 mg/dL (70-110); Magnesium 1.8 mg/dL (1.5-2.4); Potassium 4.1 mmol/L (3.5-5.5); Sodium 135 mmol/L (135-145); Total Bilirubin 0.7 mg/dL (0.3-1.2); Total Protein 5.3 g/dL (6.2-8.2)
[2024-09-26 08:49] LABS: HCT 30.6 % (39.6-50.0); HGB 10.1 g/dL (13.0-17.0); MCH 31.6 pg (27.0-32.0); MCV 95.6 FL (80.0-97.0); Mean Platelet Volume 10.4 FL (9.5-12.2); NRBC Per 100 WBC 0 X 10*3/uL (0.00-0.01); Platelet Count 116 X 10*3/uL (140-440); RDW 14.2 % (11.5-14.5); WBC 4.65 X 10*3/uL (4.50-10.00)
--- NOTE | 2024-09-26 11:45 | P.PN ---
Subjective Progress Note Date: 09/26/24 Hospital course: Patient is a pleasant 49-year-old male with a past medical history of daily alcohol abuse, alcoholic pancreatitis, hypertension, hyperlipidemia, GERD, anxiety, and nicotine dependence. He presented to the emergency department with a chief complaint of epigastric pain. Patient reports longstanding history of alcohol abuse drinking previously 12 tall boys a day and recently reports cutting back to approximately 4 tall boys per day. He reports epigastric pain beginning yesterday evening accompanied by nausea and acid reflux. Patient reports concerns for pancreatitis again. He denies having any fevers, chills, diaphoresis, headache, lightheadedness, dizziness, chest pain, palpitations, shortness of breath, or experiencing any difficulties with or changes in his urinary function. Patient reports he drank 4 tall boys yesterday with last drink being yesterday afternoon. Upon arrival to our facility, patient unde rwent evaluation in the emergency department. Vital signs upon arrival show blood pressure 124/90, heart rate 98, respiratory rate 18, temp 90.5 F, and SpO2 of 97% on room air. EKG completed showing sinus tachycardia 120 bpm with no significant T wave or ST abnormalities upon personal review and interpretation. Chest x-ray completed negative for acute cardiopulmonary process. Labs completed and reviewed. CBC unremarkable. Coagulation profile normal findings. BMP showing hypochloremic hyponatremia with sodium of 133, chloride of 94, bicarb of 23, and anion gap elevated at 16. Troponin was negative at less than 0.012. Magnesium slightly low at 1.7. Lipase was elevated at 4880 and serum alcohol level also elevated at 233. Patient was admitted under our services for alcoholic pancreatitis. Physical exam: Patient reports persistent/slightly worsening abdominal pain to epigastric and left upper quadrant. Denies nausea or vomiting and tolerating clear liquid diet. Patient denies any other complaints at this time. He continues to use IV Dilaudid for pain management and Ativan for alcohol withdrawal. Patient currently denies feeling symptoms of alcohol withdrawal but did have noted mild tremors in upper extremities and face. Vital signs reviewed and stable. General: Nontoxic, no distress and appears stated age. Derm: Skin warm and dry, normal coloration for ethnicity. Head: Atraumatic, normocephalic and symmetric. Eyes: EOM's intact, no lid lag, and anicteric sclera Mouth: no lip lesions, mucus membranes moist Cardiovascular: regular rate and rhythm with normal S1S2, no murmur, positive posterior tibial pulses bilaterally, and cap refill < 2 seconds. Lungs: Respirations even, regular, and unlabored on room air. Lungs CTA bilaterally, no rhonchi, no rales, no wheezing, and no accessory muscle usage. Abdominal: soft, mild abdominal tenderness reported to epigastric and left upper quadrant, no guarding, no appreciable organomegaly Ext: ROM intact. No gross muscle atrophy, no edema, no contractures Neuro: Speech clear, face symmetrical and CN II-XII grossly intact with no noted focal neuro deficits. Mild tremors noted in bilateral upper extremities and face. Psych: Alert and oriented to person, place, time, and situation. Appropriate and pleasant affect. Assessment and Plan of Care: Alcoholic pancreatitis Alcohol withdraw Alcohol intoxication in active alcoholic, upon arrival Bicytopenia, likely secondary to daily alcohol abuse -Continue monitoring of CIWA scores and patient to be medicated with Ativan 0.5 mg every 4 hours as needed for CIWA score of 4-5, Ativan 1 mg every 4 hours for CIWA score of 6-7, Ativan 2 mg every 3 hours CIWA score of 8-9, and Ativan 2 mg every 2 hours forr CIWA score of 10 or greater. -Aggressive IV fluid hydration with lactated Ringer's at 150 cc/h. -Symptomatic care and pain management with Toradol 15 mg IVP every 6 hours as needed for moderate pain and Dilaudid 0.5 mg IVP every 4 hours as needed for severe pain. -Zofran 4 mg IVP every 8 hours as needed for nausea or vomiting. -Thiamine 100 mg daily, and Multivitamin daily, and Folate 1 mg daily -Seizure, fall, aspiration, and elopement precautions in place. -Continued close monitoring of electrolytes and replace as needed. -Telemetry monitoring. -GI prophylaxis with Protonix -Patient reports persistent abdominal pain in epigastric and left upper quadrant. Order placed for CT abdomen and pelvis with IV contrast. Hypomagnesemia -Resolved after replacement. . Hypochloremic hyponatremia. -Resolved after IV fluid hydration. Nicotine dependence -Recommend smoking cessation and order placed for nicotine patch 21 mg daily Data and imaging reviewed: -Labs completed and reviewed. CBC showing bicytopenia with hemoglobin of 10.1 and platelet count of 116. BMP unremarkable. Blood glucose 99. Magnesium 1.8. Liver profile normal findings with the exception of hypoalbuminemia with albumin of 3.5 and low total protein of 5.3. -Vital signs reviewed. Blood pressure 143/95, heart rate 105, respiratory rate 17, temp 98.7 F, and SpO2 of 96% on room air -Secondary to reports of persistent/worsening pain in epigastric and left upper quadrant, order placed for CT abdomen and pelvis. Will follow-up on results once available. CODE STATUS full code DVT prophylaxis: Lovenox Anticipated discharge date: Pending clinical course Anticipated discharge place: Home Patient was seen independently by Nurse Practitioner. This document was prepared using [employer] dictation software. Please allow for errors in continuous miner operator while rare they do occur. Seth Lopez NP rendered care for this patient independently, reviewed the findi ngs and plan as documented in the note above and agree with plan. I did not physically speak with or examine the patient on this date. Objective - Vital Signs Vital signs: Vital Signs Temp 98.7 F 09/26/24 06:45 Pulse 105 H 09/26/24 06:45 Resp 17 09/26/24 06:45 BP 143/95 09/26/24 06:45 Pulse Ox 96 09/26/24 06:45 FiO2 Intake & Output 09/25/24 09/26/24 09/26/24 18:59 06:59 18:59 Intake Total 240 Balance 240 Weight 69.853 kg 69.853 kg Intake: Oral 240 Other: Voiding Method Toilet # Voids 3 - Labs CBC & Chem 7: 09/26/24 06:09 09/26/24 06:04 Labs: Abnormal Lab Results - Last 24 Hours (Table) 09/25/24 09/25/24 09/26/24 Range/Units 09:22 09:22 06:04 RBC 4.24 L (4.30-5.90) m/uL Hgb (13.0-17.0) g/dL Hct (39.6-50.0) % Plt Count (140-440) X 10*3/uL Sodium 133 L (137-145) mmol/L Chloride 94 L (98-107) mmol/L Calcium 8.6 L (8.7-10.3) mg/dL Total Protein 5.3 L (6.2-8.2) g/dL Albumin 3.5 L (3.8-4.9) g/dL Lipase 4880 H (23-300) U/L Serum Alcohol 233 H* mg/dL 09/26/24 Range/Units 06:09 RBC 3.20 L (4.30-5.90) m/uL Hgb 10.1 L (13.0-17.0) g/dL Hct 30.6 L (39.6-50.0) % Plt Count 116 L (140-440) X 10*3/uL Sodium (137-145) mmol/L Chloride (98-107) mmol/L Calcium (8.7-10.3) mg/dL Total Protein (6.2-8.2) g/dL Albumin (3.8-4.9) g/dL Lipase (23-300) U/L Serum Alcohol mg/dL
--- NOTE | 2024-09-26 12:49 | CT ---
EXAMINATION TYPE: CT abdomen pelvis w con DATE OF EXAM: 09/26/2024 12:42 PM COMPARISON: None. CLINICAL INDICATION: Male, 49 years old with history of increasing abdominal pain/distention, abd bryan n TECHNIQUE:CT scan of the abdomen and pelvis is performed without Oral Contrast and with IV Contrast, patient injected with 100 mL of Isovue 300. CT DLP: 606.1 mGycm, Automated exposure control for dose reduction was used. FINDINGS: LUNG BASES-: No visible nodule. No infiltrate. Basilar atelectasis and small effusions. LIVER/GB: No calcified gallstones. No space occupying hepatic lesion. Biliary tree is of normal ca liber. Hepatic steatosis with mild hepatomegaly. PANCREAS: Edema of the pancreas with peripancreatic inflammatory change seen compatible with acute pa ncreatitis. No unusual collections at this time. Mild gallbladder distention seen. SPLEEN: No splenic enlargement. No lesion seen. ADRENALS: No nodule. No thickening. KIDNEYS/BLADDER: No hydronephrosis. No nephrolithiasis. No distinct renal mass. Urinary bladder g rossly unremarkable. BOWEL: Normal appendix. Normal bowel caliber. No inflammation. GENITAL ORGANS: No gross abnormality. LYMPH NODES: No greater than 1cm abdominal or pelvic lymph nodes are appreciated. AORTA: No significant abnormality. OSSEOUS STRUCTURES: No significant abnormality is seen. OTHER: Free fluid within the pelvis and right paracolic gutter. Small amount of ascites adjacent to t he liver edge. IMPRESSION: 1. Findings compatible with acute pancreatitis without contrast getting factors such as abscess or ne crosis. 2. Mild predominantly pelvic ascites. 3. Hepatomegaly with underlying hepatic steatosis. [facility], , 09/26/2024 12:47 PM
[2024-09-26] MEDS: MELATONIN 5 MG TABLET PO PRN (22:47)
[2024-09-27] MEDS: VERAPAMIL SR 120 MG TABLET.ER PO SCH (11:39)
[2024-09-27] MEDS: LISINOPRIL-HCTZ 20-25 MG 1 EACH TAB PO SCH (11:39)
[2024-09-27] MEDS: busPIRone HCl 5 MG TAB PO SCH (11:39)
[2024-09-27 11:42] LABS: HCT 34.8 % (39.0-53.0); HGB 10.9 gm/dL (13.0-17.5); MCHC 31.2 g/dL (31.0-37.0); Mean Platelet Volume 9.5; Platelet Count 119 k/uL (150-450); RBC 3.51 m/uL (4.30-5.90); RDW 14.3 % (11.5-15.5); WBC 3.8 k/uL (3.8-10.6)
[2024-09-27 11:47] LABS: ALT 29 U/L (4-49); African American GFR (CKD) >90 (>60 ml/min/1.73 sqM); Albumin/Globulin Ratio 1.5; Anion Gap 9 mmol/L; Blood Urea Nitrogen 8 mg/dL (9-20); Calcium 9.5 mg/dL (8.4-10.2); Carbon Dioxide 26 mmol/L (22-30); Chloride 96 mmol/L (98-107); Globulin 2.7 g/dL; Glucose 80 mg/dL (74-99); Non-African American GFR(CKD) >90 (>60 ml/min/1.73 sqM); Sodium 131 mmol/L (137-145); Total Bilirubin 0.8 mg/dL (0.2-1.3); Total Protein 6.7 g/dL (6.3-8.2)
[2024-09-27 11:48] LABS: AST 45 U/L (17-59); Alkaline Phosphatase 88 U/L (38-126); Magnesium 1.7 mg/dL (1.6-2.3); Potassium 4.6 mmol/L (3.5-5.1)
[2024-09-27 11:53] LABS: MCV 99.1 fL (80.0-100.0)
--- NOTE | 2024-09-27 18:13 | P.PN ---
Subjective Progress Note Date: 09/27/24 Hospital course: Patient is a pleasant 49-year-old male with a past medical history of daily alcohol abuse, alcoholic pancreatitis, hypertension, hyperlipidemia, GERD, anxiety, and nicotine dependence. He presented to the emergency department with a chief complaint of epigastric pain. Patient reports longstanding history of alcohol abuse drinking previously 12 tall boys a day and recently reports cutting back to approximately 4 tall boys per day. He reports epigastric pain beginning yesterday evening accompanied by nausea and acid reflux. Patient reports concerns for pancreatitis again. He denies having any fevers, chills, diaphoresis, headache, lightheadedness, dizziness, chest pain, palpitations, shortness of breath, or experiencing any difficulties with or changes in his urinary function. Patient reports he drank 4 tall boys yesterday with last drink being yesterday afternoon. Upon arrival to our facility, patient unde rwent evaluation in the emergency department. Vital signs upon arrival show blood pressure 124/90, heart rate 98, respiratory rate 18, temp 90.5 F, and SpO2 of 97% on room air. EKG completed showing sinus tachycardia 120 bpm with no significant T wave or ST abnormalities upon personal review and interpretation. Chest x-ray completed negative for acute cardiopulmonary process. Labs completed and reviewed. CBC unremarkable. Coagulation profile normal findings. BMP showing hypochloremic hyponatremia with sodium of 133, chloride of 94, bicarb of 23, and anion gap elevated at 16. Troponin was negative at less than 0.012. Magnesium slightly low at 1.7. Lipase was elevated at 4880 and serum alcohol level also elevated at 233. Patient was admitted under our services for alcoholic pancreatitis.CT abdomen and pelvis was completed. Findings compatible with acute pancreatitis with no findings to suggest abscess or necrosis, mild predominantly pelvic ascites and hepatomegaly with underlying hepatic steatosis. Physical exam: Patient seen and fully evaluated at bedside this morning. He reports imp rovement of abdominal pain to epigastric and left upper quadrant and currently denies having any nausea or any episodes of vomiting. He has been tolerating clear liquid diet and reports actually feeling hungry this morning. Discussed with patient we will advance diet to full liquid diet and slowly advance to low- fat diet as he tolerates. Vital signs reviewed and stable. General: Nontoxic, no distress and appears stated age. Derm: Skin warm and dry, normal coloration for ethnicity. Head: Atraumatic, normocephalic and symmetric. Eyes: EOM's intact, no lid lag, and anicteric sclera Mouth: no lip lesions, mucus membranes moist Cardiovascular: regular rate and rhythm with normal S1S2, no murmur, positive posterior tibial pulses bilaterally, and cap refill < 2 seconds. Lungs: Respirations even, regular, and unlabored on room air. Lungs CTA bilaterally, no rhonchi, no rales, no wheezing, and no accessory muscle usage. Abdominal: soft, mild abdominal tenderness reported to epigastric and left upper quadrant, no guarding, no appreciable organomegaly Ext: ROM intact. No gross muscle atrophy, no edema, no contractures Neuro: Speech clear, face symmetrical and CN II-XII grossly intact with no noted focal neuro deficits. Mild tremors noted in bilateral upper extremities and face. Psych: Alert and oriented to person, place, time, and situation. Appropriate and pleasant affect. Assessment and Plan of Care: Alcoholic pancreatitis Alcohol withdraw Alcohol intoxication in active alcoholic, upon arrival Bicytopenia, likely secondary to daily alcohol abuse -CT abdomen and pelvis was completed. Findings compatible with acute pancreatitis with no findings to suggest abscess or necrosis, mild predominantly pelvic ascites and hepatomegaly with underlying hepatic steatosis. -Continue monitoring of CIWA scores and patient to be medicated with Ativan 0.5 mg every 4 hours as needed for CIWA score of 4-5, Ativan 1 mg every 4 hours for CIWA score of 6-7, Ativan 2 mg every 3 hours CIWA score of 8-9, and Ativan 2 mg every 2 hours forr CIWA score of 10 or greater. -Continue IV fluid hydration with lactated Ringer's at a decreased rate of 100 cc/h as diet being advanced and we will discontinue fluids once patient t olerating low-fat diet. -Symptomatic care and pain management with Toradol 15 mg IVP every 6 hours as needed for moderate pain and Dilaudid 0.5 mg IVP every 4 hours as needed for severe pain. -Zofran 4 mg IVP every 8 hours as needed for nausea or vomiting. -Thiamine 100 mg daily, and Multivitamin daily, and Folate 1 mg daily -Seizure, fall, aspiration, and elopement precautions in place. -Continued close monitoring of electrolytes and replace as needed. -Telemetry monitoring. -GI prophylaxis with Protonix -Diet advanced to full liquid diet, will slowly advance to low-fat diet as patient tolerates. Hypomagnesemia - magnesium slightly low at 1.7. Placed for magnesium sulfate 2 g IVPB and will continue to monitor with repeat a.m. labs and replace abnormal electrolyte values as indicated based upon findings. . Hypochloremic hyponatremia. -Sodium 131 and chloride 96. Nicotine dependence -Recommend smoking cessation and order placed for nicotine patch 21 mg daily Data and imaging reviewed: -Labs completed and reviewed. CBC showing bicytopenia with hemoglobin of 10.9 and platelet count of 119. BMP showing hypochloremic hyponatremia with sodium of 131 and chloride of 96. Blood glucose 80. Magnesium slightly low at 1.7. Liver profile unremarkable. -Vital signs reviewed. Blood pressure 150/97, heart rate 82, respiratory rate 17, temp 98.1 F, and SpO2 of 98% on room air -CT abdomen and pelvis was completed. Findings compatible with acute pancreatitis with no findings to suggest abscess or necrosis, mild predominantly pelvic ascites and hepatomegaly with underlying hepatic steatosis. CODE STATUS full code DVT prophylaxis: Lovenox Anticipated discharge date: Pending clinical course Anticipated discharge place: Home Patient was seen independently by Nurse Practitioner. This document was prepared using [employer] dictation software. Please allow for errors in cone cleaner while rare they do occur. Seth Lopez NP rendered care for this patient independently, reviewed the findings and plan as documented in the note above and agree with plan. I did not physically speak with or examine the patient on this date. Objective - Vital Signs Vital signs: Vital Signs Temp 98.1 F 09/27/24 07:30 Pulse 82 09/27/24 07:30 Resp 17 09/27/24 07:30 BP 150/97 09/27/24 07:30 Pulse Ox 99 09/27/24 07:30 FiO2 Intake & Output 09/26/24 09/27/24 09/27/24 18:59 06:59 18:59 Intake Total 1880 1430 560 Balance 1880 1430 560 Intake: Intake, IV Titration 1430 Amount Lactated Ringers 1,000 ml 1430 @ 130 mls/hr IV .[id number] KELVIN Rx#:[id number] Oral 1880 560 Other: Voiding Method Toilet # Voids 5 - Labs CBC & Chem 7: 09/27/24 11:07 09/27/24 11:07
[2024-09-27] MEDS: MAGNESIUM SULFATE-D5W PMX 1 GM in DEXTROSE/WATER 1 100ML.BAG IVPB SCH (18:28)
[2024-09-27] MEDS: ATORVASTATIN 20 MG TAB PO SCH (20:02)
[2024-09-27] MEDS: ONDANSETRON 4 MG/2 ML VIAL IVP PRN (21:43)
[2024-09-28] MEDS: LORazepam 1 MG TAB PO PRN (04:11)
[2024-09-28 08:30] VITALS: BP 144/95; PULSE 99; RESP 16; TEMP 98.2
[2024-09-28 10:01] LABS: ALT 20 U/L (10-49); AST 25 U/L (14-35); Albumin 3.8 g/dL (3.8-4.9); Alkaline Phosphatase 98 U/L (41-126); BUN/Creat Ratio 8.86 Ratio (12.00-20.00); Blood Urea Nitrogen 6.2 mg/dL (9.0-27.0); Calcium 9.3 mg/dL (8.7-10.3); Carbon Dioxide 27.4 mmol/L (21.6-31.8); Chloride 97 mmol/L (96-109); Glucose 86 mg/dL (70-110); Sodium 137 mmol/L (135-145); Total Bilirubin 0.5 mg/dL (0.3-1.2); Total Protein 5.8 g/dL (6.2-8.2)
[2024-09-28 10:06] LABS: HCT 29.2 % (39.6-50.0); HGB 9.7 g/dL (13.0-17.0); MCH 31.8 pg (27.0-32.0); MCHC 33.2 g/dL (32.0-37.0); MCV 95.7 FL (80.0-97.0); Mean Platelet Volume 10.9 FL (9.5-12.2); NRBC Per 100 WBC 0 X 10*3/uL (0.00-0.01); Platelet Count 120 X 10*3/uL (140-440); RBC 3.05 X 10*6/uL (4.40-5.60); RDW 13.8 % (11.5-14.5); WBC 3.58 X 10*3/uL (4.50-10.00)
--- NOTE | 2024-09-28 12:03 | P.DS ---
Providers Date of admission: 09/25/24 10:29 Expected date of discharge: 09/28/24 Attending physician: Raymundo Renteria Primary care physician: Saida Corado MD Hospital Course: Discharge Diagnosis: Alcoholic pancreatitis. Patient treated with aggressive IV fluid hydration, pain management, and diet slowly advanced. Patient had improvement of pain and tolerating low-fat diet. Patient educated on the importance of abstaining from any and all alcohol use as continued use of alcohol will likely lead to recurrent episodes of alcoholic pancreatitis. Patient also encouraged to follow-up outpatient with ceramic saw tender/mixer driver Alcohol withdraw Alcohol intoxication in active alcoholic, upon arrival. Hepatic steatosis with mild ascites, likely secondary to alcoholic cirrhosis. Discussed with patient and strongly recommended total cessation of any and all alcohol use. Patient educated on importance of cessation of alcohol and risks of continued use. Also recommended follow-up with ceramic saw tender/mixer driver for long-term monitoring/management. Bicytopenia, secondary to daily alcohol abuse . Stable hemoglobin 9.7 with platelet count of 120 on day of discharge. Hypomagnesemia. Resolved. Magnesium 2.0 on day of discharge. Hypochloremic hyponatremia. Resolved. Sodium 137 and chloride of 97 upon discharge Nicotine dependence Hospital course: Patient is a pleasant 49-year-old male with a past medical history of daily alcohol abuse, alcoholic pancreatitis, hypertension, hyperlipidemia, GERD, anxiety, and nicotine dependence. He presented to the emergency department with a chief complaint of epigastric pain. Patient reports longstanding history of alcohol abuse drinking previously 12 tall boys a day and recently reports cutting back to approximately 4 tall boys per day. He reports epigastric pain beginning yesterday evening accompanied by nausea and acid reflux. Patient re ports concerns for pancreatitis again. He denies having any fevers, chills, diaphoresis, headache, lightheadedness, dizziness, chest pain, palpitations, shortness of breath, or experiencing any difficulties with or changes in his urinary function. Patient reports he drank 4 tall boys yesterday with last drink being yesterday afternoon. Upon arrival to our facility, patient underwent evaluation in the emergency department. Vital signs upon arrival show blood pressure 124/90, heart rate 98, respiratory rate 18, temp 90.5 F, and SpO2 of 97% on room air. EKG completed showing sinus tachycardia 120 bpm with no significant T wave or ST abnormalities upon personal review and interpretation. Chest x-ray completed negative for acute cardiopulmonary process. Labs completed and reviewed. CBC unremarkable. Coagulation profile normal findings. BMP showing hypochloremic hyponatremia with sodium of 133, chloride of 94, bicarb of 23, and anion gap elevated at 16. Troponin was negative at less than 0.012. Magnesium slightly low at 1.7. Lipase was elevated at 4880 and serum alcohol level also elevated at 233. Patient was admitted under our services for alcoholic pancreatitis.CT abdomen and pelvis was completed. Findings compatible with acute pancreatitis with no findings to suggest abscess or necrosis, mild predominantly pelvic ascites and hepatomegaly with underlying hepatic steatosis.Patient treated with aggressive IV fluid hydration, pain management, and diet slowly advanced. Patient had improvement of pain and tolerating low-fat diet. Patient educated on the importance of abstaining from any and all alcohol use as continued use of alcohol will likely lead to recurrent episodes of alcoholic pancreatitis. Patient also encouraged to follow-up outpatient with ceramic saw tender/mixer driver Physical exam: Vital signs reviewed and stable. General: Nontoxic, no distress and appears stated age. Derm: Skin warm and dry, normal coloration for ethnicity. Head: Atraumatic, normocephalic and symmetric. Eyes: EOM's intact, no lid lag, and anicteric sclera Mouth: no lip lesions, mucus membranes moist Cardiovascular: regular rate and rhythm with normal S1S2, no murmur, positive posterior tibial pulses bilaterally, and cap refill < 2 seconds. Lungs: Respirations even, regular, and unlabored on room air. Lungs CTA bilaterally, no rhonchi, no rales, no wheezing, and no accessory muscle usage. Abdominal: soft, nontender upon palpation, no guarding, no appreciable organomegaly Ext: ROM intact. No gross muscle atrophy, no edema, no contractures Neuro: Speech clear, face symmetrical and CN II-XII grossly intact with no noted focal neuro deficits. Mild tremors noted in bilateral upper extremities and face. Psych: Alert and oriented to person, place, time, and situation. Appropriate and pleasant affect. A total of 35 minutes of time were spent preparing this complex discharge summary. Pt was discharged on 09/28/2024 at 11:55 AM. Patient was seen independently by Nurse Practitioner. This document was prepared using [employer] dictation software. Please allow for errors in maintenance mechanic supervisor while rare they do occur. Seth Lopez NP rendered care for this patient independently, reviewed the findings and plan as documented in the note above. I did not physically speak with or examine the patient on this date. Patient Condition at Discharge: Stable Plan - Discharge Summary New Discharge Prescriptions: New Ketorolac [Toradol] 10 mg PO Q6H PRN #12 tab PRN Reason: Pain Continue Rosuvastatin [Crestor] 10 mg PO HS Folic Acid 1 mg PO DAILY Pantoprazole [Protonix] 40 mg PO DAILY #30 tab Verapamil HCl [Verapamil Sr] 120 mg PO DAILY busPIRone HCL 15 mg PO BID Lisinopril-Hctz 20-25 mg [Zestoretic 20-25] 1 tab PO DAILY Discharge Medication List Folic Acid 1 mg PO DAILY 10/23/23 [History] Rosuvastatin [Crestor] 10 mg PO HS 10/23/23 [History] Pantoprazole [Protonix] 40 mg PO DAILY #30 tab 11/27/23 [Rx] Lisinopril-Hctz 20-25 mg [Zestoretic 20-25] 1 tab PO DAILY 09/25/24 [History] Verapamil HCl [Verapamil Sr] 120 mg PO DAILY 09/25/24 [History] busPIRone HCL 15 mg PO BID 09/25/24 [History] Ketorolac [Toradol] 10 mg PO Q6H PRN #12 tab 09/28/24 [Rx] Follow up Appointment(s)/Referral(s): Irene Bui MD [STAFF PHYSICIAN] - 1 Week Saida Corado MD [Primary Care Provider] - 1-2 days Patient Instructions/Handouts: Pancreatitis (DC), Abuse of Alcohol (DC) Activity/Diet/Wound Care/Special Instructions: Activity: As tolerated. Take breaks as needed. Diet: Low-fat diet Special Instructions: Strongly recommend cessation of any and all alcohol use, recurrent alcohol use places you at high susceptibility to again develop alcoholic pancreatitis. Also recommend following up with GI specialist and mixer driver. Thank you for allowing us to participate in your care, it was truly a pleasure having you for our patient!!! Discharge/Stand Alone Forms: AA Meetings [place], [facility], Outpatient Counseling, Outpatient Therapy List Discharge Disposition: HOME SELF-CARE
== END 2024-09-28 13:20 | disposition home or self-care (01) | DRG 282 ==
LOC: EC 08:52 → 5NMEDONC 10:29
PROVIDERS: ADMIT Student in an Organized Health Care Education/Training Program; ATTEND Student in an Organized Health Care Education/Training Program
DX: K85.90 Acute pancreatitis without necrosis or infection, unspecified (principal); F10.229 Alcohol dependence with intoxication, unspecified; F10.239 Alcohol dependence with withdrawal, unspecified; K76.0 Fatty (change of) liver, not elsewhere classified; K70.31 Alcoholic cirrhosis of liver with ascites; E83.42 Hypomagnesemia; E87.1 Hypo-osmolality and hyponatremia; E87.8 Other disorders of electrolyte and fluid balance, not elsewhere classified; F17.200 Nicotine dependence, unspecified, uncomplicated; I10 Essential (primary) hypertension; Z79.899 Other long term (current) drug therapy
CPT/HCPCS: 36415; 71046; 74177; 80053; 80320; 83690; 83735; 84484; 85025; 85027; 85610; 85730; 93005; 96361; 96365; 96366; 96375; 96376; 99285

== ENCOUNTER 2025-01-06 08:17 | Inpatient (IN) | payer OTHER ==
--- NOTE | 2025-01-06 08:42 | ED ---
General Adult HPI - General Chief complaint: Alcohol Stated complaint: Dizziness Time Seen by Provider: 01/06/25 08:19 Source: patient, RN/MD, RN notes reviewed Mode of arrival: EMS Limitations: no limitations - History of Present Illness Initial comments: 49-year-old male presents emergency department via EMS complaining of head injury, dizziness. Patient states that he fell earlier today striking his head along with other falls this week. Patient had a worsening headache, dizziness. Patient states he used to be an alcoholic states he drank on for 1 pint denies any significant withdrawal symptoms but is shaky. Denies any blood thinners He states he is unsure if he is drank more than this. Patient states he is very shaky, felt like he is going to have a seizure. Patient states he just feels very off, confused at times. Patient does have a history of alcohol withdrawal. Patient does have a history of acute pancreatitis but denies any complaints of abdominal pain currently. - Related Data Home Medications Medication Instructions Recorded Confirmed Folic Acid 1 mg PO DAILY 10/23/23 01/06/25 Lisinopril-Hctz 20-25 mg 1 tab PO DAILY 09/25/24 01/06/25 [Zestoretic 20-25] Acamprosate Calcium [Campral] 666 mg PO TID 01/06/25 01/06/25 Naltrexone HCl 50 mg PO DAILY 01/06/25 01/06/25 Nicotine 21Mg/24Hr Patch [Habitrol] 1 patch TRANSDERM DAILY PRN 01/06/25 01/06/25 Sucralfate [Carafate] 1 gm PO ACHS 01/06/25 01/06/25 buPROPion HCL [Wellbutrin SR] 200 mg PO BID 01/06/25 01/06/25 Allergies Allergy/AdvReac Type Severity Reaction Status Date / Time No Known Allergies Allergy Verified 01/06/25 11:32 Review of Systems ROS Statement: Those systems with pertinent positive or pertinent negative responses have been documented in the HPI. ROS Other: All systems not noted in ROS Statement are negative. Past Medical History Past Medical History: Coronary Artery Disease (CAD), Hyperlipidemia, Hypertension Additional Past Medical History / Comment(s): pancreatitis History of Any Multi-Drug Resistant Organisms: None Reported Past Surgical History: No Surgical Hx Reported Additional Past Surgical History / Comment(s): tracheostomy and peg placed and reversed in 2023 r/t severe pancreatitis Past Anesthesia/Blood Transfusion Reactions: Unable to Obtain Past Psychological History: Anxiety Smoking Status: Current every day smoker Past Alcohol Use History: Abuse, Daily, Heavy Past Drug Use History: None Reported General Exam Limitations: no limitations General appearance: alert, in no apparent distress Head exam: Present: atraumatic, normocephalic, normal inspection Eye exam: Present: normal appearance, PERRL, EOMI. Absent: scleral icterus, conjunctival injection, periorbital swelling ENT exam: Present: normal exam, normal oropharynx, mucous membranes moist, TM's normal bilaterally Neck exam: Present: normal inspection, full ROM. Absent: tenderness, meningismus, lymphadenopathy Respiratory exam: Present: normal lung sounds bilaterally. Absent: respiratory distress, wheezes, rales, rhonchi, stridor Cardiovascular Exam: Present: regular rate, normal rhythm, normal heart sounds. Absent: systolic murmur, diastolic murmur, rubs, gallop, clicks GI/Abdominal exam: Present: soft, normal bowel sounds. Absent: distended, tenderness, guarding, rebound, rigid Neurological exam: Present: alert, oriented X3, CN II-XII intact, reflexes normal. Absent: motor sensory deficit Skin exam: Present: warm, dry, intact, normal color. Absent: rash Course Vital Signs 01/06/25 01/06/25 01/06/25 08:21 10:31 14:59 Temperature 98.2 F Pulse Rate 97 117 H 89 Respiratory 16 18 16 Rate Blood Pressure 138/102 135/99 122/87 O2 Sat by Pulse 99 100 97 Oximetry 01/06/25 01/06/25 01/06/25 18:23 22:02 23:25 Temperature Pulse Rate 86 91 76 Respiratory 16 16 14 Rate Blood Pressure 130/102 138/102 134/98 O2 Sat by Pulse 97 97 97 Oximetry 01/07/25 01/07/25 01/07/25 01:40 03:39 04:32 Temperature Pulse Rate 89 84 72 Respiratory 16 16 16 Rate Blood Pressure 122/99 119/84 120/94 O2 Sat by Pulse 97 99 97 Oximetry 01/07/25 06:00 Temperature Pulse Rate 68 Respiratory 18 Rate Blood Pressure 129/96 O2 Sat by Pulse 98 Oximetry EKG Findings - EKG Comments: EKG Findings:: EKG performed at 8: 39 sinus rhythm rate of 91 [place] 159 QRS 88 QT/QTc 349/397 - EKG Results: EKG: interpreted by BARAK Medical Decision Making - Medical Decision Making Was pt. sent in by a medical professional or institution (AMIE Horton, FIELD SEISMOLOGIST, urgent care, hospital, or senior care...) When possible be specific @ -No Did you speak to anyone other than the patient for history (EMS, parent, family, police, friend...)? What history was obtained from this source @ -No Did you review nursing and triage notes (agree or disagree)? Why? @ -I reviewed and agree with nursing and triage notes Were old charts reviewed (outside hosp., previous admission, EMS record, old EKG, old radiological studies, urgent care reports/EKG's, senior care records)? Report findings @ -No old charts were reviewed Differential Diagnosis (chest pain, altered mental status, abdominal pain women, abdominal pain men, vaginal bleeding, weakness, fever, dyspnea, syncope, hea dache, dizziness, GI bleed, back pain, seizure, CVA, palpatations, mental health, musculoskeletal)? @ -Differential Dizziness: Benign paroxysmal positional Vertigo, Meniere's disease, otitis media, acoustic neuroma, vertebrobasilar insufficiency, cerebellar stroke, encephalitis, hypovolemic, arrhythmia, coronary artery syndrome, anemia, this is not meant to be an all-inclusive list EKG interpreted by me (3pts min.). @ -As above X-rays interpreted by me (1pt min.). @ -None done CT interpreted by me (1pt min.). @ -CT brain, C-spine showing no acute intracranial hemorrhage, skull fracture no cervical fracture U/S interpreted by me (1pt. min.). @ -None done What testing was considered but not performed or refused? (CT, X-rays, U/S, labs)? Why? @ -None What meds were considered but not given or refused? Why? @ -None Did you discuss the management of the patient with other professionals (pro fessionals i.e. AMIE Horton, FIELD SEISMOLOGIST, lab, RT, psych nurse, social media campaign manager, insurance claim auditor, teacher, environmental compliance officer, medical case worker)? Give summary @ -Sound physician for admission Was smoking cessation discussed for >3mins.? @ -No Was critical care preformed (if so, how long)? @ -No Were there social determinants of health that impacted care today? How? (Homelessness, low income, unemployed, alcoholism, drug addiction, transportation, low edu. Level, literacy, decrease access to med. care, intermediate, rehab)? @ -No Was there de-escalation of care discussed even if they declined (Discuss DNR or withdrawal of care, Hospice)? DNR status @ -No What co-morbidities impacted this encounter? (DM, HTN, Smoking, COPD, CAD, Can cer, CVA, ARF, Chemo, Hep., AIDS, mental health diagnosis, sleep apnea, morbid obesity)? @ -ETOH Was patient admitted / discharged? Hospital course, mention meds given and route, prescriptions, significant lab abnormalities, going to OR and other pertinent info. @ -Admitted patient presented for head injury, alcohol abuse. Patient did have CT performed given significant headache dizziness along with EtOH use and severe mechanism of injury. Patient negative CT. Patient continues to have alcohol withdrawal alcohol currently in his system. Patient may have admitted on CIWA and Ativan withdrawal protocol Undiagnosed new problem with uncertain prognosis? @ -No Drug Therapy requiring intensive monitoring for toxicity (Heparin, Nitro, Insulin, Cardizem)? @ -No Were any procedures done? @ -No Diagnosis/symptom? @ -Multiple falls, alcohol withdrawal Acute, or Chronic, or Acute on Chronic? @ -Acute Uncomplicated (without systemic symptoms) or Complicated (systemic symptoms)? @ -Complicated Side effects of treatment? @ -No Exacerbation, Progression, or Severe Exacerbation? @ -No Poses a threat to life or bodily function? How? (Chest pain, USA, MT, pneumonia, PE, COPD, DKA, ARF, appy, cholecystitis, CVA, Diverticulitis, Homicidal, Suicidal, threat to staff... and all critical care pts) @ -No - Lab Data Result diagrams: 01/06/25 08:50 01/06/25 16:04 Lab Results 01/06/25 01/06/25 01/06/25 Range/Units 08:45 08:50 08:50 WBC 6.40 (4.50-10.00) 10*3/uL RBC 4.03 L (4.40-5.60) 10*6/uL Hgb 12.6 L (13.0-17.0) g/dL Hct 34.8 L (39.6-50.0) % MCV 86.4 (80.0-97.0) fL MCH 31.3 (27.0-32.0) pg MCHC 36.2 (32.0-37.0) g/dL Plt Count 190 (140-440) 10*3/uL MPV 9.2 L (9.5-12.2) fL Immature Gran % (Auto) 0.3 % Neutrophils % 72.8 % Lymphocytes % 12.5 % Monocytes % 12.2 % Eosinophils % 1.4 % Basophils % 0.8 % Immature Gran # 0.02 (0.00-0.04) 10*3/uL Neutrophils # 4.66 (1.80-7.70) 10*3/uL Lymphocytes # 0.80 L (0.90-5.00) 10*3/uL Monocytes # 0.78 (0.20-1.00) 10*3/uL Eosinophils # 0.09 (0.04-0.35) 10*3/uL Basophils # 0.05 (0.00-0.10) 10*3/uL Sodium 128 L (137-145) mmol/L Potassium 4.5 (3.5-5.1) mmol/L Chloride 88 L (98-107) mmol/L Carbon Dioxide 20 L (22-30) mmol/L Anion Gap 20 mmol/L BUN 15 (9-20) mg/dL Creatinine 0.79 (0.66-1.25) mg/dL Est GFR (CKD-EPI)AfAm >90 (>60 ml/min/1.73 sqM) Est GFR (CKD-EPI)NonAf >90 (>60 ml/min/1.73 sqM) Glucose 71 L (74-99) mg/dL POC Glucose (mg/dL) 81 (70-110) mg/dL POC Glu L D Rn ID [place] Shanks Calcium 10.1 (8.4-10.2) mg/dL Magnesium 1.6 (1.6-2.3) mg/dL Total Bilirubin 1.2 (0.2-1.3) mg/dL AST 92 H (17-59) U/L ALT 48 (4-49) U/L Alkaline Phosphatase 107 (38-126) U/L Troponin I (0.000-0.034) ng/mL Total Protein 7.6 (6.3-8.2) g/dL Albumin 5.0 (3.5-5.0) g/dL Lipase 78 (23-300) U/L Serum Alcohol 21 mg/dL 01/06/25 Range/Units 08:50 WBC (4.50-10.00) 10*3/uL RBC (4.40-5.60) 10*6/uL Hgb (13.0-17.0) g/dL Hct (39.6-50.0) % MCV (80.0-97.0) fL MCH (27.0-32.0) pg MCHC (32.0-37.0) g/dL Plt Count (140-440) 10*3/uL MPV (9.5-12.2) fL Immature Gran % (Auto) % Neutrophils % % Lymphocytes % % Monocytes % % Eosinophils % % Basophils % % Immature Gran # (0.00-0.04) 10*3/uL Neutrophils # (1.80-7.70) 10*3/uL Lymphocytes # (0.90-5.00) 10*3/uL Monocytes # (0.20-1.00) 10*3/uL Eosinophils # (0.04-0.35) 10*3/uL Basophils # (0.00-0.10) 10*3/uL Sodium (137-145) mmol/L Potassium (3.5-5.1) mmol/L Chloride (98-107) mmol/L Carbon Dioxide (22-30) mmol/L Anion Gap mmol/L BUN (9-20) mg/dL Creatinine (0.66-1.25) mg/dL Est GFR (CKD-EPI)AfAm (>60 ml/min/1.73 sqM) Est GFR (CKD-EPI)NonAf (>60 ml/min/1.73 sqM) Glucose (74-99) mg/dL POC Glucose (mg/dL) (70-110) mg/dL POC Glu L D Rn ID Calcium (8.4-10.2) mg/dL Magnesium (1.6-2.3) mg/dL Total Bilirubin (0.2-1.3) mg/dL AST (17-59) U/L ALT (4-49) U/L Alkaline Phosphatase (38-126) U/L Troponin I <0.012 (0.000-0.034) ng/mL Total Protein (6.3-8.2) g/dL Albumin (3.5-5.0) g/dL Lipase (23-300) U/L Serum Alcohol mg/dL Disposition Clinical Impression: Alcohol abuse, Alcohol intoxication, Alcohol withdrawal, Metabolic acidosis, Hypoglycemia Disposition: ADMITTED IP TO THIS HOSP Condition: Poor Time of Disposition: 10:31
[2025-01-06 08:47] LABS: Glucose,Whole Blood 81 mg/dL (70-110)
[2025-01-06] MEDS: SODIUM CHLORIDE 0.9% 1,000 ML IV STA (08:51)
[2025-01-06] MEDS: SODIUM CHLORIDE 0.9% 500 ML 500 ML IV STA (08:51)
[2025-01-06 08:56] LABS: Basophils # (A) 0.05 10*3/uL (0.00-0.10); Basophils % (A) 0.8 %; Eosinophils # (A) 0.09 10*3/uL (0.04-0.35); Eosinophils % (A) 1.4 %; HCT 34.8 % (39.6-50.0); HGB 12.6 g/dL (13.0-17.0); Lymphocytes # (A) 0.80 10*3/uL (0.90-5.00); Lymphocytes % (A) 12.5 %; MCH 31.3 pg (27.0-32.0); MCHC 36.2 g/dL (32.0-37.0); MCV 86.4 fL (80.0-97.0); Monocytes # (A) 0.78 10*3/uL (0.20-1.00); Monocytes % (A) 12.2 %; Neutrophils # (A) 4.66 10*3/uL (1.80-7.70); Neutrophils % (A) 72.8 %; Platelet Count 190 10*3/uL (140-440); RBC 4.03 10*6/uL (4.40-5.60); RDW 13.7 % (11.5-14.5); WBC 6.40 10*3/uL (4.50-10.00)
[2025-01-06 09:07] LABS: ALT 48 U/L (4-49); African American GFR (CKD) >90 (>60 ml/min/1.73 sqM); Albumin 5.0 g/dL (3.5-5.0); Anion Gap 20 mmol/L; Blood Urea Nitrogen 15 mg/dL (9-20); Calcium 10.1 mg/dL (8.4-10.2); Carbon Dioxide 20 mmol/L (22-30); Chloride 88 mmol/L (98-107); Glucose 71 mg/dL (74-99); Lipase 78 U/L (23-300); Non-African American GFR(CKD) >90 (>60 ml/min/1.73 sqM); Sodium 128 mmol/L (137-145); Total Protein 7.6 g/dL (6.3-8.2)
[2025-01-06 09:13] LABS: AST 92 U/L (17-59); Alkaline Phosphatase 107 U/L (38-126); Magnesium 1.6 mg/dL (1.6-2.3); Potassium 4.5 mmol/L (3.5-5.1)
[2025-01-06] MEDS: ONDANSETRON 4 MG/2 ML VIAL IVP STA (09:16)
--- NOTE | 2025-01-06 10:01 | CT ---
EXAMINATION TYPE: CT brain cspine wo con DATE OF EXAM: 01/06/2025 COMPARISON: CLINICAL INDICATION: Male, 49 years old with history of dizziness, fall; PHH, Dizziness, Fall TECHNIQUE: CT scan of the head and cervical spine are performed without contrast. CT DLP: 1504.[address] CTDI: mGy Automated exposure control for dose reduction was used. FINDINGS: There is no acute intracranial hemorrhage, mass effect, or midline shift identified. The ventricles and sulci are within normal limits in size. The globes are intact and the visualized sinuses are michael ar. Cervical spine is visualized in its entirety from C1 through upper thoracic levels and demonstrates s atisfactory alignment without evidence of acute fracture or dislocation. Scattered degenerative vanegas es noted. Prevertebral soft tissue appears within normal limits. The C1-C2 articulation is unremarka ble. IMPRESSION: 1. There is no acute fracture or dislocation evident in the cervical spine. 2. No acute intracranial hemorrhage, mass effect, or midline shift is seen. [facility], , 01/06/2025 9:59 AM
[2025-01-06] MEDS ORDERED: LORazepam 1 MG/0.5 ML VIAL IV PRN ×3 (10:25)
[2025-01-06] MEDS: LORazepam 1 MG/0.5 ML VIAL IV STA (10:28)
[2025-01-06] MEDS ORDERED: NALOXONE 0.4 MG/ML 1 ML VIAL IV PRN (10:42)
[2025-01-06] MEDS ORDERED: ONDANSETRON 4 MG/2 ML VIAL IVP PRN (10:42)
[2025-01-06] MEDS: ACETAMINOPHEN TAB 325 MG TAB PO PRN (11:49)
[2025-01-06] MEDS: THIAMINE 200 MG in SODIUM CHLORIDE 0.9% 100 ML IVPB STA (11:49)
[2025-01-06] MEDS ORDERED: DEXTROSE 50% SYRINGE 50 ML IVP PRN ×2 (13:45)
--- NOTE | 2025-01-06 13:52 | P.HPIM ---
History of Present Illness H&P Date: 01/06/25 Patient is [id number] male with past medical history of heavy alcohol use, history of DTs requiring requiring prolonged intubation, PEG and tracheostomy back in 2023, alcoholic pancreatitis, chronic anemia and thrombocytopeniaof alcohol abuse, 30 [id number] history, GERD, anxiety, presented to the ER with recurrent falls, head injury, dizziness He reports recurrent falls, links to his alcohol use, however he recently cut down significantly. He is accompanied by his mother who provides collateral history. He had 3 falls over the past 1 week with head injury, hitting back of head, described falls as mechanical. [place] felt [place] dizzy and lightheaded, ambulance was called, patient felt significantly better after being placed in the ambulance car where the AC was working. He states that he barely drinks water, for example, yesterday he had a can of Pepsi and 16 oz of water, he has low appetite, lost 30 pounds in the past 1 year. He said that he recently had a colonoscopy with Dr. Bui, reportedly negative. He had a pint of wine 2 or 3 times last week. He does take Wellbutrin for depression, we discussed that I will increase the seizure threshold and cannot be taken in the settings of heavy alcohol use, patient and his mother demonstrated understanding. Denies nausea, vomiting, abdominal pain, dysuria, blood in stool or urine. On arrival afebrile, heart rate in 90s, BP 138/102, SpO2 99 on room air. Lab work showed normal WBC count, hemoglobin 12.6, platelet count 198, improved from before but likely hemoconcentration in the settings of dehydration, sodium low 128, potassium 4.5, creatinine 0.79, glucose 71, AST elevated 92, normal ALT, troponin negative. Serum alcohol level 21. CT head no acute pathology Pertinent positives and negatives as discussed in HPI, a complete review of systems was performed and all other systems are negative. Patient seen and examined at bedside. Vital signs reviewed General: nontoxic, no distress, appears at stated age Derm: warm, dry Head: atraumatic, normocephalic, symmetric, occipital tenderness, no blood Eyes: EOMI, no lid lag, anicteric sclera, pupils equal round reactive to light ENT: Nose and ears atraumatic Neck: No thyromegaly, supple Mouth: no lip lesion, mucus membranes moist Cardiovascular: S1S2 reg, no murmur, no edema Lungs: clear to auscultation bilateral, no rhonchi, no rales, no wheeze, no accessory muscle use Abdominal: soft, nontender to palpation, no guarding, no appreciable organomegaly Ext: no gross muscle atrophy, muscle strength muscle strength 5 out of 5 in all 4 extremities, no contractures Neuro: CN II-XII grossly intact, normal finger nose, Psych: Alert, oriented, appropriate affect Assessment/Plan: Recurrent mechanical falls Alcohol use disorder, impending withdrawal Lightheadedness Hypochloremic hyponatremia Hyperglycemia Unintentional weight loss - CIWA with Ativan, folic acid 1 mg daily, social work consult. Will provide with high doses of thiamine 500 mg 3 times daily for 2 days followed by 250 for 3 to 5 days. - Continue telemetry - Received 2 L of IV normal saline in the ER, continue with 100 cc/h of NS - Repeat BMP in the afternoon, then daily, correction goal 8 to 10 mmol/L in 24 hours - PT OT -Seizure precautions, fall precautions -Hypoglycemia precautions, Accu-Cheks -Nutrition consult -Provide with ensures 3 times daily -Continue home naltrexone 50 mg daily, Campral 666 3 times daily Continue home Carafate 1 g p.o. ACHS Anxiety, depression: Hold home Wellbutrin 200 mg twice daily, follow-up with primary care physician for medication adjustment in the settings of alcohol use with history of DTs Hypertension: Continue home lisinopril hydrochlorothiazide 20/25 daily Tobacco abuse: Recommended smoking cessation The patient is admitted with an anticipated greater than 2 midnight stay as inpatient status for evaluation of alcohol intoxication, possible withdrawal, hyponatremia, recurrent falls, hypoglycemia. CODE STATUS: Full code DVT prophylaxis SCD and ambulation Anticipated discharge date: TBD Anticipated discharge place: [facility] A total of 40 minutes was spent on the care of this complex patient more than 50% of the time was spent in counseling and care coordination. Past Medical History Past Medical History: Coronary Artery Disease (CAD), Hyperlipidemia, Hypertension Additional Past Medical History / Comment(s): pancreatitis History of Any Multi-Drug Resistant Organisms: None Reported Past Surgical History: No Surgical Hx Reported Additional Past Surgical History / Comment(s): tracheostomy and peg placed and reversed in 2023 r/t severe pancreatitis Past Anesthesia/Blood Transfusion Reactions: Unable to Obtain Past Psychological History: Anxiety Smoking Status: Current every day smoker Past Alcohol Use History: Abuse, Daily, Heavy Past Drug Use History: None Reported Medications and Allergies Home Medications Medication Instructions Recorded Confirmed Type Folic Acid 1 mg PO DAILY 10/23/23 01/06/25 History Lisinopril-Hctz 20-25 mg 1 tab PO DAILY 09/25/24 01/06/25 History [Zestoretic 20-25] Acamprosate Calcium [Campral] 666 mg PO TID 01/06/25 01/06/25 History Naltrexone HCl 50 mg PO DAILY 01/06/25 01/06/25 History Nicotine 21Mg/24Hr Patch [Habitrol] 1 patch TRANSDERM DAILY PRN 01/06/25 01/06/25 History Sucralfate [Carafate] 1 gm PO ACHS 01/06/25 01/06/25 History buPROPion HCL [Wellbutrin SR] 200 mg PO BID 01/06/25 01/06/25 History Allergies Allergy/AdvReac Type Severity Reaction Status Date / Time No Known Allergies Allergy Verified 01/06/25 11:32 Physical Exam Vitals: Vital Signs Temp Pulse Resp BP Pulse Ox 01/06/25 10:31 117 H 18 135/99 100 01/06/25 08:21 98.2 F 97 16 138/102 99 Intake and Output 01/05/25 01/06/25 01/06/25 22:59 06:59 14:59 Other: Weight 68.039 kg Results CBC & Chem 7: 01/06/25 08:50 01/06/25 08:50 Labs: Abnormal Lab Results - Last 24 Hours (Table) 01/06/25 01/06/25 Range/Units 08:50 08:50 RBC 4.03 L (4.40-5.60) 10*6/uL Hgb 12.6 L (13.0-17.0) g/dL Hct 34.8 L (39.6-50.0) % MPV 9.2 L (9.5-12.2) fL Lymphocytes # 0.80 L (0.90-5.00) 10*3/uL Sodium 128 L (137-145) mmol/L Chloride 88 L (98-107) mmol/L Carbon Dioxide 20 L (22-30) mmol/L Glucose 71 L (74-99) mg/dL AST 92 H (17-59) U/L
[2025-01-06] MEDS: SODIUM CHLORIDE 0.9% 1,000 ML IV SCH (15:00)
[2025-01-06] MEDS: LORazepam 0.5 MG TAB PO PRN (15:34)
[2025-01-06] MEDS: KETOROLAC 15 MG/ML 1 ML VIAL IVP PRN (16:42)
[2025-01-06] MEDS: ACAMPROSATE CALCIUM 333 MG TABLET.DR PO SCH (16:43)
[2025-01-06] MEDS: SUCRALFATE 1 GM TAB PO SCH (16:43)
[2025-01-06] MEDS: THIAMINE 500 MG in SODIUM CHLORIDE 0.9% 50 ML IVPB SCH (16:43)
[2025-01-06 18:38] LABS: Glucose,Whole Blood 121 mg/dL (70-110)
[2025-01-07 08:03] LABS: African American GFR (CKD) >90 (>60 ml/min/1.73 sqM); Anion Gap 8 mmol/L; Blood Urea Nitrogen 26 mg/dL (9-20); Calcium 9.4 mg/dL (8.4-10.2); Carbon Dioxide 27 mmol/L (22-30); Chloride 94 mmol/L (98-107); Glucose 91 mg/dL (74-99); Non-African American GFR(CKD) >90 (>60 ml/min/1.73 sqM); Potassium 4.4 mmol/L (3.5-5.1); Sodium 129 mmol/L (137-145)
[2025-01-07 08:09] LABS: Basophils # (A) 0.02 10*3/uL (0.00-0.10); Basophils % (A) 0.4 %; Eosinophils # (A) 0.10 10*3/uL (0.04-0.35); Eosinophils % (A) 2.2 %; HCT 31.1 % (39.6-50.0); HGB 10.5 g/dL (13.0-17.0); Lymphocytes # (A) 0.84 10*3/uL (0.90-5.00); Lymphocytes % (A) 18.5 %; MCH 30.8 pg (27.0-32.0); MCHC 33.8 g/dL (32.0-37.0); MCV 91.2 fL (80.0-97.0); Monocytes # (A) 0.57 10*3/uL (0.20-1.00); Monocytes % (A) 12.6 %; Neutrophils # (A) 2.99 10*3/uL (1.80-7.70); Neutrophils % (A) 65.9 %; Platelet Count 146 10*3/uL (140-440); RBC 3.41 10*6/uL (4.40-5.60); RDW 14.2 % (11.5-14.5); WBC 4.54 10*3/uL (4.50-10.00)
[2025-01-07] MEDS: FOLIC ACID 1 MG TAB PO SCH (08:20)
[2025-01-07] MEDS: LISINOPRIL-HCTZ 10-12.5 MG 1 EACH TAB PO SCH (08:21)
[2025-01-07] MEDS ORDERED: THIAMINE 100 MG TAB PO SCH (09:00)
[2025-01-07] MEDS: NALTREXONE HCL 50 MG TAB PO SCH (10:29)
[2025-01-07] MEDS: LORazepam 1 MG TAB PO PRN (14:09)
[2025-01-07 15:41] LABS: Vitamin B12 276.0 pg/mL (200.0-944.0)
--- NOTE | 2025-01-07 16:25 | P.PN ---
Subjective Progress Note Date: 01/07/25 Hospital Course: Patient is [id number] male with past medical history of heavy alcohol use, h istory of DTs requiring requiring prolonged intubation, PEG and tracheostomy back in 2023, alcoholic pancreatitis, chronic anemia and thrombocytopeniaof alcohol abuse, 30 [id number] history, GERD, anxiety, presented to the ER with recurrent falls, head injury, dizziness He reports recurrent falls, links to his alcohol use, however he recently cut down significantly. He is accompanied by his mother who provides collateral history. He had 3 falls over the past 1 week with head injury, hitting back of head, described falls as mechanical. [place] and felt extremely dizzy and lightheaded, ambulance was called, patient felt significantly better after being placed in the ambulance car where the AC was working. He states that he barely drinks water, for example, yesterday he had a can of Pepsi and 16 oz of water, he has low appetite, lost 30 pounds in the past 1 year. He said that he recently had a colonoscopy with Dr. Bui, reportedly negative. He had a pint of wine 2 or 3 times last week. He does take Wellbutrin for depression, we discussed that I will increase the seizure threshold and cannot be taken in the settings of heavy alcohol use, patient and his mother demonstrated understanding. Denies nausea, vomiting, abdominal pain, dysuria, blood in stool or urine. On arrival afebrile, heart rate in 90s, BP 138/102, SpO2 99 on room air. Lab work showed normal WBC count, hemoglobin 12.6, platelet count 198, improved from before but likely hemoconcentration in the settings of dehydration, sodium low 128, potassium 4.5, creatinine 0.79, glucose 71, AST elevated 92, normal ALT, troponin negative. Serum alcohol level 21. CT head no acute pathology Patient was admitted for further management of recurrent falls, acute hyponatremia. 01/07: Seen and examined at bedside in the ER, no acute events overnight, patient still feels somewhat dizzy, complains of pain in the back of the head. He shared that he could have had a concussion but not sure. I did ask him to stand up and his Romberg was positive indicating of dysfunction of the dorsal columns or peripheral sensory nerves rather than cerebellar or vestibular pathology. Patient will be continued on high doses of thiamine, his sodium has improved from 127-132, continue IV hydration, blood glucose has improved now in 100s 90s, TSH is normal, vitamin B12 270, folate pending, A1c 5.7. He is afebrile, normotensive, heart rate is normal. PT OT eval pending, nutrition consultation pending Pertinent positives and negatives as discussed above, a complete review of systems was performed and all other systems are negative. Vitals Signs Reviewed. General: [nontoxic], [no distress], [appears at stated age] Derm: [warm], [dry] Head: [atraumatic], [normocephalic], [symmetric] Eyes: [EOMI], [no lid lag], [anicteric sclera] Mouth: [no lip lesion], [mucus membranes moist] Cardiovascular: [S1S2 reg], [no murmur] Lungs: [CTA bilateral], [no rhonchi, no rales] , [no accessory muscle use] Abdominal: [soft], [ nontender to palpation], [no guarding], [no appreciable organomegaly] Ext: [no gross muscle atrophy], [no edema], [no contractures] Neuro: [ CN II-XI grossly intact], [no focal neuro deficits] Psych: [Alert], [oriented], [appropriate affect] Assessment and Plan:Recurrent mechanical falls Alcohol use disorder, impending withdrawal Lightheadedness Hypochloremic hyponatremia Hypoglycemia Unintentional weight loss - CIWA with Ativan, folic acid 1 mg daily, social work consult. Will provide with high doses of thiamine 500 mg 3 times daily for 2 days followed by 250 for 3 to 5 days. - Continue telemetry - Received 2 L of IV normal saline in the ER, continue with 100 cc/h of NS, sodium improving - Repeat BMP in the afternoon, then daily, - PT OT -Seizure precautions, fall precautions -Hypoglycemia precautions, Accu-Cheks -Nutrition consult -Provide with ensures 3 times daily -Continue home naltrexone 50 mg daily, Campral 666 3 times daily Continue home Carafate 1 g p.o. ACHS Anxiety, depression: Hold home Wellbutrin 200 mg twice daily, follow-up with primary care physician for medication adjustment in the settings of alcohol use with history of DTs Hypertension: Continue home lisinopril hydrochlorothiazide 20/25 daily Tobacco abuse: Recommended smoking cessation CODE STATUS: Full code DVT prophylaxis SCD and ambulation Anticipated discharge date: TBD Anticipated discharge place: TBD Objective - Vital Signs Vital signs: Vital Signs Temp 98.2 F 01/06/25 08:21 Pulse 84 01/07/25 14:00 Resp 15 01/07/25 10:56 BP 125/98 01/07/25 14:00 Pulse Ox 98 01/07/25 14:00 FiO2 Intake & Output 01/06/25 01/07/25 01/07/25 18:59 06:59 18:59 Weight 68.039 kg 68.039 kg - Labs CBC & Chem 7: 01/07/25 06:02 01/07/25 13:00 Labs: Abnormal Lab Results - Last 24 Hours (Table) 01/06/25 01/06/25 01/07/25 Range/Units 16:04 18:36 06:02 RBC 3.41 L (4.40-5.60) 10*6/uL Hgb 10.5 L (13.0-17.0) g/dL Hct 31.1 L (39.6-50.0) % MPV 9.4 L (9.5-12.2) fL Lymphocytes # 0.84 L (0.90-5.00) 10*3/uL Sodium 127 L (137-145) mmol/L Chloride (98-107) mmol/L BUN (9-20) mg/dL POC Glucose (mg/dL) 121 H (70-110) mg/dL 01/07/25 01/07/25 Range/Units 06:02 13:00 RBC (4.40-5.60) 10*6/uL Hgb (13.0-17.0) g/dL Hct (39.6-50.0) % MPV (9.5-12.2) fL Lymphocytes # (0.90-5.00) 10*3/uL Sodium 129 L 132 L (137-145) mmol/L Chloride 94 L (98-107) mmol/L BUN 26 H (9-20) mg/dL POC Glucose (mg/dL) (70-110) mg/dL
[2025-01-07 18:09] LABS: Glucose,Whole Blood 164 mg/dL (70-110)
[2025-01-07 20:19] LABS: Glucose,Whole Blood 133 mg/dL (70-110)
[2025-01-07] MEDS: NICOTINE 21MG/24HR PATCH TRANSDERM PRN (22:44)
[2025-01-08] MEDS ORDERED: MELATONIN 5 MG TABLET PO PRN (06:49)
[2025-01-08 08:00] VITALS: RESP 16; TEMP 98.3
[2025-01-08 08:24] LABS: Anion Gap 10.90 mmol/L (4.00-12.00); BUN/Creat Ratio 16.44 Ratio (12.00-20.00); Blood Urea Nitrogen 14.8 mg/dL (9.0-27.0); Calcium 8.8 mg/dL (8.7-10.3); Carbon Dioxide 24.1 mmol/L (21.6-31.8); Chloride 100 mmol/L (96-109); Glucose 102 mg/dL (70-110); Potassium 3.9 mmol/L (3.5-5.5); Sodium 135 mmol/L (135-145)
[2025-01-08 08:29] LABS: Basophils # (A) 0.03 X 10*3/uL (0.00-0.10); Basophils % (A) 0.7 %; Eosinophils # (A) 0.17 X 10*3/uL (0.04-0.35); Eosinophils % (A) 4.2 %; HCT 31.3 % (39.6-50.0); HGB 10.4 g/dL (13.0-17.0); Immature Grans, Automated 0.50 %; Lymphocytes # (A) 0.90 X 10*3/uL (0.90-5.00); Lymphocytes % (A) 22.3 %; MCH 30.5 pg (27.0-32.0); MCHC 33.2 g/dL (32.0-37.0); MCV 91.8 FL (80.0-97.0); Monocytes # (A) 0.55 X 10*3/uL (0.20-1.00); Monocytes % (A) 13.6 %; NRBC Per 100 WBC 0 X 10*3/uL (0.00-0.01); Neutrophils # (A) 2.36 X 10*3/uL (1.80-7.70); Neutrophils % (A) 58.7 %; Platelet Count 152 X 10*3/uL (140-440); RBC 3.41 X 10*6/uL (4.40-5.60); RDW 13.8 % (11.5-14.5); WBC 4.03 X 10*3/uL (4.50-10.00)
[2025-01-08 09:50] VITALS: BP 145/99
[2025-01-08 10:23] VITALS: PULSE 73
--- NOTE | 2025-01-08 12:59 | P.DS ---
Providers Date of admission: 01/06/25 10:42 Attending physician: Isabela Adames MD Primary care physician: Saida Corado MD Hospital Course: Discharge Diagnosis: Alcohol use disorder, impending withdrawal Lightheadedness, improved Hypochloremic hyponatremia, resolved Hypoglycemia, resolved Loss of appetite GERD anxiety depression Hypertension Cardiac arrest Hospital Course: emely is [id number] male with past medical history of heavy alcohol use, history of DTs requiring requiring prolonged intubation, PEG and tracheostomy back in 2023, alcoholic pancreatitis, chronic anemia and thrombocytopeniaof alcohol abuse, 30 [id number] history, GERD, anxiety, presented to the ER with recurrent falls, head injury, dizziness He reports recurrent falls, links to his alcohol use, however he recently cut down significantly. He is accompanied by his mother who provides collateral history. He had 3 falls over the past 1 week with head injury, hitting back of head, described falls as mechanical. [place] felt [place] dizzy and lightheaded, ambulance was called, patient felt significantly better after being placed in the ambulance car where the AC was working. He states that he barely drinks water, for example, yesterday he had a can of Pepsi and 16 oz of water, he has low appetite, lost 30 pounds in the past 1 year. He said that he recently had a colonoscopy with Dr. Bui, reportedly negative. He had a pint of wine 2 or 3 times last week. He does take Wellbutrin for depression, we discussed that I will increase the seizure threshold and cannot be taken in the settings of heavy alcohol use, patient and his mother demonstrated understanding. Denies nausea, vomiting, abdominal pain, dysuria, blood in stool or urine. On arrival afebrile, heart rate in 90s, BP 138/102, SpO2 99 on room air. Lab work showed normal WBC count, hemoglobin 12.6, platelet count 198, improved from before but likely hemoconcentration in the settings of dehydration, sodium low 128, potassium 4.5, creatinine 0.79, glucose 71, AST elevated 92, normal ALT, troponin negative. Serum alcohol level 21. CT head no acute pathology Patient was admitted for further management of recurrent falls, acute hyponatremia. 01/07: Seen and examined at bedside in the ER, no acute events overnight, patient still feels somewhat dizzy, complains of pain in the back of the head. He shared that he could have had a concussion but not sure. I did ask him to stand up and his Romberg was positive indicating of dysfunction of the dorsal columns or peripheral sensory nerves rather than cerebellar or vestibular pathology. His sodium has normalized, vitamin B12 270, A1c 5.7, TSH normal. Patient walked in the hallway with physical therapy, he was seen by social work and declined alcohol rehab or physical therapy or rehab placement. He was advised to discuss with PCP discontinuation of Wellbutrin and switching to another antidepressant. He was educated on nutrition and meals, checking his weight, completing age-appropriate cancer screening. Patient was also advised to stay well-hydrated smoking and alcohol use cessation strongly recommended.Patient was also advised to stay well-hydrated Patient seen and examined at bedside. Vital signs reviewed and stable. General: Nontoxic, no distress, appears at stated age Derm: Warm, dry Head: Atraumatic, normocephalic, symmetric Eyes: EOMI, no lid lag, anicteric sclera Mouth: No lip lesion, mucus membranes moist Cardiovascular: S1S2 reg, no murmur Lungs: CTA bilateral, no rhonchi, no rales, no accessory muscle use Abdominal: Soft, nontender to palpation, no guarding, no appreciable organomegaly Ext: No gross muscle atrophy, no edema, no contractures Neuro: CN II-XI grossly intact, no focal neuro deficits Psych: Alert, oriented, appropriate affect A total of 40 minutes of time were spent preparing this complex discharge summary. Patient was discharged on 01/08/2025. Patient Condition at Discharge: Poor Plan - Discharge Summary Discharge Rx Participant: No New Discharge Prescriptions: New Thiamine [Vitamin B-1] 100 mg PO DAILY #30 tablet Continue Folic Acid 1 mg PO DAILY buPROPion HCL [Wellbutrin SR] 200 mg PO BID Sucralfate [Carafate] 1 gm PO ACHS Nicotine 21Mg/24Hr Patch [Habitrol] 1 patch TRANSDERM DAILY PRN PRN Reason: Nicotine Cravings Acamprosate Calcium [Campral] 666 mg PO TID Lisinopril-Hctz 20-25 mg [Zestoretic 20-25] 1 tab PO DAILY Naltrexone HCl 50 mg PO DAILY Discharge Medication List Folic Acid 1 mg PO DAILY 10/23/23 [History] Lisinopril-Hctz 20-25 mg [Zestoretic 20-25] 1 tab PO DAILY 09/25/24 [History] Acamprosate Calcium [Campral] 666 mg PO TID 01/06/25 [History] Naltrexone HCl 50 mg PO DAILY 01/06/25 [History] Nicotine 21Mg/24Hr Patch [Habitrol] 1 patch TRANSDERM DAILY PRN 01/06/25 [History] Sucralfate [Carafate] 1 gm PO ACHS 01/06/25 [History] buPROPion HCL [Wellbutrin SR] 200 mg PO BID 01/06/25 [History] Thiamine [Vitamin B-1] 100 mg PO DAILY #30 tablet 01/08/25 [Rx] Follow up Appointment(s)/Referral(s): Saida Corado MD [Primary Care Provider] - 1-2 days Activity/Diet/Wound Care/Special Instructions: Please, follow-up with your primary care physician. As we discussed, work on your food intake, make sure you have nutritious meals full of protein, fresh fruits and veggies, dairy, and eggs. Please, check your weight regularly, keep a log of the readings to see what is the trend. Please, as discussed, complete age-appropriate cancer screening. Stay away from alcohol as it decreases your appetite. Please, take all the medications as prescribed. When you stand up, please make sure you do it slowly, stay well-hydrated especially During summertime. You can sometimes use electrolyte drinks however, note, that they are high in salt that can bring your blood pressure up. Please, discuss with your primary care physician switching to another medication for depression treatment as we discussed, bupropion can rise seizure threshold.. Discharge Disposition: HOME WITH HOME HEALTH SERVICES
[2025-01-08] MEDS ORDERED: THIAMINE 250 MG in SODIUM CHLORIDE 0.9% 50 ML IVPB SCH (16:00)
== END 2025-01-08 14:22 | disposition home or self-care (01) | DRG 775 ==
LOC: EC 08:17 → 4SSUR 10:42 → 5NMEDONC 01-07 06:49
PROVIDERS: ADMIT Student in an Organized Health Care Education/Training Program; ATTEND Student in an Organized Health Care Education/Training Program
DX: F10.129 Alcohol abuse with intoxication, unspecified (principal); E87.8 Other disorders of electrolyte and fluid balance, not elsewhere classified; S09.90XA Unspecified injury of head, initial encounter; F10.139 Alcohol abuse with withdrawal, unspecified; E87.20 Acidosis, unspecified; F32.A Depression, unspecified; I10 Essential (primary) hypertension; E87.1 Hypo-osmolality and hyponatremia; E78.5 Hyperlipidemia, unspecified; E86.0 Dehydration; E16.2 Hypoglycemia, unspecified; R73.9 Hyperglycemia, unspecified; R29.6 Repeated falls; F17.210 Nicotine dependence, cigarettes, uncomplicated; F41.9 Anxiety disorder, unspecified; K21.9 Gastro-esophageal reflux disease without esophagitis; I25.10 Atherosclerotic heart disease of native coronary artery without angina pectoris; Y90.1 Blood alcohol level of 20-39 mg/100 ml; R63.4 Abnormal weight loss; Z79.899 Other long term (current) drug therapy; W19.XXXA Unspecified fall, initial encounter
CPT/HCPCS: 36415; 70450; 72125; 80048; 80053; 80320; 82607; 82747; 83036; 83690; 83735; 84295; 84443; 84484; 85025; 93005; 96361; 96365; 96366; 96367; 96375; 96376; 99285

== ENCOUNTER 2025-01-23 03:28 | Inpatient (IN) | payer OTHER ==
[2025-01-23] MEDS ORDERED: LORazepam 1 MG/0.5 ML VIAL IV PRN ×2 (03:31)
[2025-01-23] MEDS ORDERED: LORazepam 1 MG TAB PO PRN ×2 (03:31)
--- NOTE | 2025-01-23 03:32 | ED ---
Recheck HPI - General Stated Complaint: Abd pain Time Seen by Provider: 01/23/25 03:30 Source: RN notes reviewed, old records reviewed Mode of arrival: ambulatory Limitations: no limitations - History of Present Illness Initial Comments: This is a 49-year-old male to the ER for evaluation patient is in severe pain severe abdominal pain transferred to us from outside facility for acute pancreatitis with acute alcohol intoxication MD Complaint: abnormal lab (Acute pancreatitis alcohol intoxication) -: days(s) Returns Today for: persistent/worsening pain related to initial visit Treatments Prior to Arrival: Given Pain Meds on - Related Data Home Medications Medication Instructions Recorded Confirmed Folic Acid 1 mg PO DAILY 10/23/23 01/23/25 Lisinopril-Hctz 20-25 mg 1 tab PO DAILY 09/25/24 01/23/25 [Zestoretic 20-] LORazepam [Ativan] 0.5 mg PO DAILY PRN 01/23/25 01/23/25 Metoprolol Succinate (ER) [Toprol 25 mg PO DAILY 01/23/25 01/23/25 Xl] Rosuvastatin [Crestor] 10 mg PO HS 01/23/25 01/23/25 Vilazodone HCl [Viibryd] 20 mg PO DAILY 01/23/25 01/23/25 Allergies Allergy/AdvReac Type Severity Reaction Status Date / Time No Known Allergies Allergy Verified 01/23/25 09:30 Review of Systems ROS Statement: Those systems with pertinent positive or pertinent negative responses have been documented in the HPI. ROS Other: All systems not noted in ROS Statement are negative. Past Medical History Past Medical History: Coronary Artery Disease (CAD), Hyperlipidemia, Hypert ension Additional Past Medical History / Comment(s): pancreatitis History of Any Multi-Drug Resistant Organisms: None Reported Past Surgical History: No Surgical Hx Reported Additional Past Surgical History / Comment(s): tracheostomy and peg placed and reversed in 2023 r/t severe pancreatitis Past Anesthesia/Blood Transfusion Reactions: Unable to Obtain Past Psychological History: Anxiety Smoking Status: Current every day smoker Past Alcohol Use History: Abuse, Daily, Heavy Additional Past Alcohol Use History / Comment(s): admitted with intubation x2 for ETOH Past Drug Use History: None Reported General Exam General appearance: alert, in no apparent distress Head exam: Present: atraumatic, normocephalic, normal inspection Eye exam: Present: normal appearance, PERRL, EOMI. Absent: scleral icterus, conjunctival injection, periorbital swelling ENT exam: Present: normal exam, mucous membranes moist Neck exam: Present: normal inspection. Absent: tenderness, meningismus, lymphadenopathy Respiratory exam: Present: normal lung sounds bilaterally. Absent: respiratory distress, wheezes, rales, rhonchi, stridor Cardiovascular Exam: Present: regular rate, normal rhythm, normal heart sounds. Absent: systolic murmur, diastolic murmur, rubs, gallop, clicks GI/Abdominal exam: Present: soft, normal bowel sounds. Absent: distended, tenderness, guarding, rebound, rigid Extremities exam: Present: normal inspection, full ROM, normal capillary refill. Absent: tenderness, pedal edema, joint swelling, calf tenderness Back exam: Present: normal inspection Neurological exam: Present: alert, oriented X3, CN II-XII intact Psychiatric exam: Present: normal affect, normal mood Skin exam: Present: warm, dry, intact, normal color. Absent: rash Course Vital Signs 01/23/25 01/23/25 01/23/25 03:30 05:27 06:48 Temperature 98 F Pulse Rate 84 71 75 Respiratory 18 16 16 Rate Blood Pressure 144/62 111/80 O2 Sat by Pulse 98 99 Oximetry - Reevaluation(s) Reevaluation #1: 01/23/25 03:53 Medical records reviewed Reevaluation #2: 01/23/25 04:28 Patient symptoms are improved Reevaluation #3: 01/23/25 04:28 Spoke with patient regarding findings questions answered Reevaluation #4: Was pt. sent in by a medical professional or institution (, PA, TIP FINISHER, urgent care, hospital, or [facility]...) When possible be specific @ -no Did you speak to anyone other than the patient for history (EMS, parent, family, police, friend...)? What history was obtained from this source @ -no Did you review nursing and triage notes (agree or disagree)? Why? @ -agree Are old charts reviewed (outside hosp., previous admission, EMS record, old EKG, old radiological studies, urgent care reports/EKG's, [facility] records)? R eport findings @ -yes Differential Diagnosis (chest pain, altered mental status, abdominal pain women, abdominal pain men, vaginal bleeding, weakness, fever, dyspnea, syncope, headache, dizziness, GI bleed, back pain, seizure, CVA, palpatations, mental health, musculoskeletal)? @ -prior EKG interpreted by me (3pts min.). @ -no X-rays interpreted by me (1pt min.). @ -no CT interpreted by me (1pt min.). @ -no U/S interpreted by me (1pt. min.). @ -no What testing was considered but not performed or refused? (CT, X-rays, U/S, labs)? Why? @ -none What meds were considered but not given or refused? Why? @ -none Did you discuss the management of the patient with other professionals (emilia ponce i.e. , PA, TIP FINISHER, lab, RT, psych nurse, psychotherapist social worker, supervisor nurse, teacher, ground nuclear weapons assembly officer, immigration case worker)? Give summary @ -no Was smoking cessation discussed for >3mins.? @ -no Was critical care preformed (if so, how long)? @ -no Were there social determinants of health that impacted care today? How? (Homelessness, low income, unemployed, alcoholism, drug addiction, transportation, low edu. Level, literacy, decrease access to med. care, halfway, rehab)? @ -none Was there de-escalation of care discussed even if they declined (Discuss DNR or withdrawal of care, Hospice)? DNR status @ -no What co-morbidities impacted this encounter? (DM, HTN, Smoking, COPD, CAD, Cancer, CVA, ARF, Chemo, Hep., AIDS, mental health diagnosis, sleep apnea, morbid obesity)? @ -none Was patient admitted / discharged? Hospital course, mention meds given and route, prescriptions, significant lab abnormalities, going to OR and other pertinent info. @ - 49 male will be admitted for acute pancreatitis acute alcohol intoxication with pending alcohol withdrawal Admitted Undiagnosed new problem with uncertain prognosis? @ -no Drug Therapy requiring intensive monitoring for toxicity (Heparin, Nitro, Insuli n, Cardizem)? @ -no Were any procedures done? @ -no Diagnosis/symptom? @ -Acute pancreatitis acute alcohol intoxication with pending withdrawal Acute, or Chronic, or Acute on Chronic? @ -Acute Uncomplicated (without systemic symptoms) or Complicated (systemic symptoms)? @ -Complicated Side effects of treatment? @ -no Exacerbation, Progression, or Severe Exacerbation? @ -exacerbation Poses a threat to life or bodily function? How? (Chest pain, USA, AL, pneumonia, PE, COPD, DKA, ARF, appy, cholecystitis, CVA, Diverticulitis, Homicidal, Suicidal, threat to staff... and all critical care pts) @ -no Reevaluation #5: Differential Abdominal Pain Men: Appendicitis, cholecystitis, diverticulosis, ischemic bowel, pancreatitis, hepatitis, UTI, gastroenteritis, AAA, incarcerated hernia, bowel obstruction, constipation, inflammatory bowel, hepatitis, peptic ulcer disease, splenic infarction, perforated viscus, testicular torsion, this is not meant to be an all-inclusive list - Consultations Consultation #1: Spoke with Dr. Martines who agrees to admit this patient Medical Decision Making - Medical Decision Making 49 male will be admitted for acute pancreatitis acute alcohol intoxication with pending alcohol withdrawal - Lab Data Result diagrams: 01/24/25 06:33 01/24/25 06:29 Lab Results 01/23/25 01/23/25 01/23/25 Range/Units 03:50 03:50 03:50 WBC 10.44 H (4.50-10.00) 10*3/uL RBC 3.93 L (4.40-5.60) 10*6/uL Hgb 12.3 L (13.0-17.0) g/dL Hct 34.5 L (39.6-50.0) % MCV 87.8 (80.0-97.0) fL MCH 31.3 (27.0-32.0) pg MCHC 35.7 (32.0-37.0) g/dL Plt Count 279 (140-440) 10*3/uL MPV 9.1 L (9.5-12.2) fL Immature Gran % (Auto) 0.4 % Neutrophils % 76.4 % Lymphocytes % 13.4 % Monocytes % 8.1 % Eosinophils % 0.7 % Basophils % 1.0 % Immature Gran # 0.04 (0.00-0.04) 10*3/uL Neutrophils # 7.98 H (1.80-7.70) 10*3/uL Lymphocytes # 1.40 (0.90-5.00) 10*3/uL Monocytes # 0.85 (0.20-1.00) 10*3/uL Eosinophils # 0.07 (0.04-0.35) 10*3/uL Basophils # 0.10 (0.00-0.10) 10*3/uL PT 10.2 (10.0-12.5) sec INR 0.9 (<1.2) APTT 25.9 (22.0-30.0) sec Sodium 127 L (137-145) mmol/L Potassium 4.1 (3.5-5.1) mmol/L Chloride 88 L (98-107) mmol/L Carbon Dioxide 25 (22-30) mmol/L Anion Gap 14 mmol/L BUN 14 (9-20) mg/dL Creatinine 0.69 (0.66-1.25) mg/dL Est GFR (CKD-EPI)AfAm >90 (>60 ml/min/1.73 sqM) Est GFR (CKD-EPI)NonAf >90 (>60 ml/min/1.73 sqM) Glucose 69 L (74-99) mg/dL Plasma Lactic Acid Farrukh (0.7-2.0) mmol/L Calcium 9.2 (8.4-10.2) mg/dL Total Bilirubin 0.9 (0.2-1.3) mg/dL AST 99 H (17-59) U/L ALT 78 H (4-49) U/L Alkaline Phosphatase 287 H (38-126) U/L Total Protein 7.3 (6.3-8.2) g/dL Albumin 4.8 (3.5-5.0) g/dL Amylase 346 H* (30-110) U/L Lipase 1337 H (23-300) U/L Serum Alcohol 99 mg/dL 01/23/25 Range/Units 03:50 WBC (4.50-10.00) 10*3/uL RBC (4.40-5.60) 10*6/uL Hgb (13.0-17.0) g/dL Hct (39.6-50.0) % MCV (80.0-97.0) fL MCH (27.0-32.0) pg MCHC (32.0-37.0) g/dL Plt Count (140-440) 10*3/uL MPV (9.5-12.2) fL Immature Gran % (Auto) % Neutrophils % % Lymphocytes % % Monocytes % % Eosinophils % % Basophils % % Immature Gran # (0.00-0.04) 10*3/uL Neutrophils # (1.80-7.70) 10*3/uL Lymphocytes # (0.90-5.00) 10*3/uL Monocytes # (0.20-1.00) 10*3/uL Eosinophils # (0.04-0.35) 10*3/uL Basophils # (0.00-0.10) 10*3/uL PT (10.0-12.5) sec INR (<1.2) APTT (22.0-30.0) sec Sodium (137-145) mmol/L Potassium (3.5-5.1) mmol/L Chloride (98-107) mmol/L Carbon Dioxide (22-30) mmol/L Anion Gap mmol/L BUN (9-20) mg/dL Creatinine (0.66-1.25) mg/dL Est GFR (CKD-EPI)AfAm (>60 ml/min/1.73 sqM) Est GFR (CKD-EPI)NonAf (>60 ml/min/1.73 sqM) Glucose (74-99) mg/dL Plasma Lactic Acid Farrukh 1.4 (0.7-2.0) mmol/L Calcium (8.4-10.2) mg/dL Total Bilirubin (0.2-1.3) mg/dL AST (17-59) U/L ALT (4-49) U/L Alkaline Phosphatase (38-126) U/L Total Protein (6.3-8.2) g/dL Albumin (3.5-5.0) g/dL Amylase (30-110) U/L Lipase (23-300) U/L Serum Alcohol mg/dL - EKG Data -: EKG Interpreted by Me (EKG is sinus 79 AK 167 QRS 85 QTc 400) Disposition Clinical Impression: Metabolic acidosis, Alcohol withdrawal, Alcohol intoxication, Alcohol abuse, Pancreatitis, acute Disposition: ADMITTED IP TO THIS HOSP Condition: Fair Is patient prescribed a controlled substance at d/c from ED?: No Time of Disposition: 04:20
[2025-01-23] MEDS: SODIUM CHLORIDE 0.9% 1,000 ML IV ONE (04:01)
[2025-01-23] MEDS: ONDANSETRON 4 MG/2 ML VIAL IVP STA (04:02)
[2025-01-23] MEDS: PANTOPRAZOLE 40 MG/10 ML VIAL IVP STA (04:02)
[2025-01-23 04:10] LABS: Basophils # (A) 0.10 10*3/uL (0.00-0.10); Basophils % (A) 1.0 %; Eosinophils # (A) 0.07 10*3/uL (0.04-0.35); Eosinophils % (A) 0.7 %; HCT 34.5 % (39.6-50.0); HGB 12.3 g/dL (13.0-17.0); Lymphocytes # (A) 1.40 10*3/uL (0.90-5.00); Lymphocytes % (A) 13.4 %; MCH 31.3 pg (27.0-32.0); MCHC 35.7 g/dL (32.0-37.0); MCV 87.8 fL (80.0-97.0); Monocytes # (A) 0.85 10*3/uL (0.20-1.00); Monocytes % (A) 8.1 %; Neutrophils # (A) 7.98 10*3/uL (1.80-7.70); Neutrophils % (A) 76.4 %; Platelet Count 279 10*3/uL (140-440); RBC 3.93 10*6/uL (4.40-5.60); RDW 13.7 % (11.5-14.5); WBC 10.44 10*3/uL (4.50-10.00)
[2025-01-23] MEDS: HYDROmorphone 1 MG/ML 1 ML SYRINGE IVP STA (04:18)
[2025-01-23 04:19] LABS: INR 0.9 (<1.2); Partial Thromboplastin Time 25.9 sec (22.0-30.0); Prothrombin Time 10.2 sec (10.0-12.5)
[2025-01-23 04:22] LABS: ALT 78 U/L (4-49); AST 99 U/L (17-59); African American GFR (CKD) >90 (>60 ml/min/1.73 sqM); Albumin 4.8 g/dL (3.5-5.0); Alkaline Phosphatase 287 U/L (38-126); Anion Gap 14 mmol/L; Blood Urea Nitrogen 14 mg/dL (9-20); Calcium 9.2 mg/dL (8.4-10.2); Carbon Dioxide 25 mmol/L (22-30); Chloride 88 mmol/L (98-107); Glucose 69 mg/dL (74-99); Lipase 1337 U/L (23-300); Non-African American GFR(CKD) >90 (>60 ml/min/1.73 sqM); Potassium 4.1 mmol/L (3.5-5.1); Sodium 127 mmol/L (137-145); Total Protein 7.3 g/dL (6.3-8.2)
[2025-01-23] MEDS ORDERED: NALOXONE 0.4 MG/ML 1 ML VIAL IV PRN (04:26)
[2025-01-23 04:28] LABS: Amylase 346 U/L (30-110)
[2025-01-23] MEDS: DEXTROSE 5%-0.45% NACL 1,000 ML IV SCH (04:39)
[2025-01-23] MEDS: SODIUM CHLORIDE 0.9% 1,000 ML IV SCH (04:42)
[2025-01-23] MEDS: LORazepam 1 MG TAB PO PRN (06:00)
[2025-01-23] MEDS: LORazepam 1 MG/0.5 ML VIAL IV PRN (06:07)
[2025-01-23] MEDS: PANTOPRAZOLE 40 MG/10 ML VIAL IV SCH (08:55)
[2025-01-23] MEDS: LORazepam 0.5 MG TAB PO PRN (08:55)
[2025-01-23] MEDS: ENOXAPARIN 40 MG/0.4 ML SYRINGE SQ SCH (11:05)
[2025-01-23] MEDS: NICOTINE 21MG/24HR PATCH TRANSDERM SCH (11:05)
[2025-01-23] MEDS: diazePAM 5 MG TAB PO SCH (11:06)
[2025-01-23] MEDS: HYDROmorphone 1 MG/ML 1 ML SYRINGE IVP PRN (11:11)
--- NOTE | 2025-01-23 15:40 | P.HPIM ---
History of Present Illness H&P Date: 01/23/25 Chief Complaint: Abdominal pain Pleasant 49-year-old patient. Presents 4 days of increasing abdominal pain. Nausea vomiting. Had a bowel movement yesterday. Some chills. Patient with a longstanding history of alcoholism. Drinks sometimes sixpack beer. Sometimes 1 to 3 pints of vodka. History of previous pancreatitis. This morning still having significant pain. Getting IV Dilaudid. Was NPO. Review of systems: GEN.: Tired EYES: None HEENT: None NECK: None RESPIRATORY: None CARDIOVASCULAR: None GASTROINTESTINAL: As above GENITOURINARY: None MUSCULOSKELETAL: None LYMPHATICS: None HEMATOLOGICAL: None PSYCHIATRY: Bit anxious] NEUROLOGICAL: None Social history: Lives with his mother and 12-year-old daughter. 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 Alcohol use disorder Physical examination: VITAL SIGNS: 98.2, 78, 16, 122 x 76, 94% room air GENERAL: BMI 21.6, lying in bed awake slightly anxious. EYES: Pupils equal. Conjunctiva shawna l. HEENT: External appearance of nose and ears normal, oral cavity grossly normal. NECK: JVD not raised; masses not palpable. HEART: First and second heart sounds are normal; no edema. LUNGS: Respiratory rate normal; decreased breath. ABDOMEN: Soft, epigastric tenderness liver spleen not palpable, no masses palpable. PSYCH: Alert and oriented x3; mood and affect anxious l. MUSCULOSKELETAL:No Clubbing/cyanosis;muscles-grossly intact NEUROLOGICAL: Cranial nerves grossly intact; no facial asymmetry, power and sensation grossly intact. LYMPHATICS: No lymph nodes palpable in the axilla and neck INVESTIGATIONS, reviewed in the clinical context: January 23, 2025: White count 10.4 hemoglobin 12.3 platelets 279 sodium 127 potassium 4.1 BUN 14 creatinine 0.69 glucose 69 AST 99 ALT 78 alkaline phosphatase 287 amylase 346 lipase 1337 serum alcohol 99 Assessment plan: - Acute alcohol induced pancreatitis. Keep NPO. Except ice chips. Dilaudid as needed for pain medications. IV fluids - Alcohol use disorder. Consult social work. Thiamine. Folic acid. - Acute on chronic gastritis from alcoholism. With GERD Protonix 40 mg twice daily - Chronic nicotine dependence active smoker Nicotine patch - Essential hypertension Toprol-XL. Hold Zestoretic - Depression viibryd - Hypoglycemia with decreased oral intake D5.45 Patient was counseled at length. N.p.o. except ice chips. Past Medical History Past Medical History: Coronary Artery Disease (CAD), Hyperlipidemia, Hypertension Additional Past Medical History / Comment(s): pancreatitis History of Any Multi-Drug Resistant Organisms: None Reported Past Surgical History: No Surgical Hx Reported Additional Past Surgical History / Comment(s): tracheostomy and peg placed and reversed in 2023 r/t severe pancreatitis Past Anesthesia/Blood Transfusion Reactions: Unable to Obtain Past Psychological History: Anxiety Smoking Status: Current every day smoker Past Alcohol Use History: Abuse, Daily, Heavy Additional Past Alcohol Use History / Comment(s): admitted with intubation x2 for ETOH Past Drug Use History: None Reported Medications and Allergies Home Medications Medication Instructions Recorded Confirmed Type Folic Acid 1 mg PO DAILY 10/23/23 01/23/25 History Lisinopril-Hctz 20-25 mg 1 tab PO DAILY 09/25/24 01/23/25 History [Zestoretic 20-25] LORazepam [Ativan] 0.5 mg PO DAILY PRN 01/23/25 01/23/25 History Metoprolol Succinate (ER) [Toprol 25 mg PO DAILY 01/23/25 01/23/25 History Xl] Rosuvastatin [Crestor] 10 mg PO HS 01/23/25 01/23/25 History Vilazodone HCl [Viibryd] 20 mg PO DAILY 01/23/25 01/23/25 History Allergies Allergy/AdvReac Type Severity Reaction Status Date / Time No Known Allergies Allergy Verified 01/23/25 09:30 Physical Exam Vitals: Vital Signs Temp Pulse Pulse Resp BP BP Pulse Ox 01/23/25 07:37 98.2 F 78 16 122/76 94 L 01/23/25 06:48 75 16 01/23/25 05:27 71 16 111/80 99 01/23/25 03:30 98 F 84 18 144/62 98 Intake and Output 01/22/25 01/23/25 01/23/25 22:59 06:59 14:59 Other: # Voids 1 Weight 64.41 kg 64.41 kg Results CBC & Chem 7: 01/23/25 03:50 01/23/25 03:50 Labs: Abnormal Lab Results - Last 24 Hours (Table) 01/23/25 01/23/25 Range/Units 03:50 03:50 WBC 10.44 H (4.50-10.00) 10*3/uL RBC 3.93 L (4.40-5.60) 10*6/uL Hgb 12.3 L (13.0-17.0) g/dL Hct 34.5 L (39.6-50.0) % MPV 9.1 L (9.5-12.2) fL Neutrophils # 7.98 H (1.80-7.70) 10*3/uL Sodium 127 L (137-145) mmol/L Chloride 88 L (98-107) mmol/L Glucose 69 L (74-99) mg/dL AST 99 H (17-59) U/L ALT 78 H (4-49) U/L Alkaline Phosphatase 287 H (38-126) U/L Amylase 346 H* (30-110) U/L Lipase 1337 H (23-300) U/L
[2025-01-23] MEDS: FOLIC ACID 1 MG TAB PO SCH (15:49)
[2025-01-23] MEDS: THIAMINE 100 MG TAB PO SCH (15:49)
[2025-01-23] MEDS: METOPROLOL SUCCINATE (ER) 25 MG TAB.ER.24H PO SCH (15:49)
[2025-01-23] MEDS: NON FORMULARY DRUG (Vilazodone Hcl [Viibryd] 20 MG Tablet) PO SCH (15:50)
[2025-01-23 17:19] LABS: HCT 30.0 % (39.6-50.0); HGB 10.6 g/dL (13.0-17.0); MCH 31.9 pg (27.0-32.0); MCHC 35.3 g/dL (32.0-37.0); MCV 90.4 fL (80.0-97.0); Platelet Count 200 10*3/uL (140-440); RBC 3.32 10*6/uL (4.40-5.60); RDW 13.8 % (11.5-14.5); WBC 4.19 10*3/uL (4.50-10.00)
[2025-01-23 17:35] LABS: Amylase 240 U/L (30-110); Lipase 1143 U/L (23-300)
[2025-01-23] MEDS: PANTOPRAZOLE 40 MG TABLET PO SCH (17:44)
[2025-01-23] MEDS: ONDANSETRON 4 MG/2 ML VIAL IVP PRN (19:51)
[2025-01-24 10:19] LABS: Basophils # (A) 0.05 X 10*3/uL (0.00-0.10); Basophils % (A) 1.0 %; Eosinophils # (A) 0.15 X 10*3/uL (0.04-0.35); Eosinophils % (A) 2.9 %; HCT 30.8 % (39.6-50.0); HGB 10.3 g/dL (13.0-17.0); Immature Grans, Automated 0.40 %; Lymphocytes # (A) 0.60 X 10*3/uL (0.90-5.00); Lymphocytes % (A) 11.7 %; MCH 30.8 pg (27.0-32.0); MCHC 33.4 g/dL (32.0-37.0); MCV 92.2 FL (80.0-97.0); Monocytes # (A) 0.57 X 10*3/uL (0.20-1.00); Monocytes % (A) 11.2 %; NRBC Per 100 WBC 0 X 10*3/uL (0.00-0.01); Neutrophils # (A) 3.72 X 10*3/uL (1.80-7.70); Neutrophils % (A) 72.8 %; Platelet Count 211 X 10*3/uL (140-440); RBC 3.34 X 10*6/uL (4.40-5.60); RDW 14.1 % (11.5-14.5); WBC 5.11 X 10*3/uL (4.50-10.00)
[2025-01-24 10:32] LABS: ALT 45 U/L (10-49); AST 45 U/L (14-35); Albumin 4.2 g/dL (3.8-4.9); Albumin/Globulin Ratio 2.21 Ratio (1.60-3.17); Alkaline Phosphatase 223 U/L (41-126); Anion Gap 11.60 mmol/L (4.00-12.00); BUN/Creat Ratio 9.50 Ratio (12.00-20.00); Blood Urea Nitrogen 7.6 mg/dL (9.0-27.0); Calcium 8.9 mg/dL (8.7-10.3); Carbon Dioxide 25.4 mmol/L (21.6-31.8); Chloride 99 mmol/L (96-109); Globulin 1.9 g/dL (1.6-3.3); Glucose 100 mg/dL (70-110); Magnesium 2.1 mg/dL (1.5-2.4); Potassium 4.2 mmol/L (3.5-5.5); Sodium 136 mmol/L (135-145); Total Protein 6.1 g/dL (6.2-8.2)
[2025-01-24 13:13] LABS: Glucose,Whole Blood 114 mg/dL (70-110)
[2025-01-24 15:09] LABS: Amylase 244 U/L (23-121); Lipase 295 U/L (14-60)
[2025-01-24] MEDS ORDERED: LISINOPRIL-HCTZ 20-12.5 MG 1 EACH TAB PO SCH (17:15)
[2025-01-24] MEDS: hydroCHLOROthiazide 25 MG TAB PO SCH (18:26)
--- NOTE | 2025-01-24 18:32 | P.PN ---
Progress Note - Text Progress Note Date: 01/24/25 Chief Complaint: Abdominal pain Pleasant 49-year-old patient. Presents 4 days of increasing abdominal pain. Nausea vomiting. Had a bowel movement yesterday. Some chills. Patient with a longstanding history of alcoholism. Drinks sometimes sixpack beer. Sometimes 1 to 3 pints of vodka. History of previous pancreatitis. This morning still having significant pain. Getting IV Dilaudid. Was NPO. January 24: Decreased abdominal tenderness. No pain. Present. On clear liquids. Amylase and lipase is coming down. Will change to full liquids this evening. Review of systems: GEN.: Tired EYES: None HEENT: None NECK: None RESPIRATORY: None CARDIOVASCULAR: None GASTROINTESTINAL: As above GENITOURINARY: None MUSCULOSKELETAL: None LYMPHATICS: None HEMATOLOGICAL: None PSYCHIATRY: Bit anxious] NEUROLOGICAL: None Social history: Lives with his mother and 12-year-old daughter. 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 Alcohol use disorder Physical examination: VITAL SIGNS: 98.2, 78, 16, 122 x 76, 94% room air GENERAL: BMI 21.6, lying in bed awake slightly anxious. EYES: Pupils equal. Conjunctiva shawna l. HEENT: External appearance of nose and ears normal, oral cavity grossly normal. NECK: JVD not raised; masses not palpable. HEART: First and second heart sounds are normal; no edema. LUNGS: Respiratory rate normal; decreased breath. ABDOMEN: Soft, epigastric tenderness liver spleen not palpable, no masses palpable. PSYCH: Alert and oriented x3; mood and affect anxious l. MUSCULOSKELETAL:No Clubbing/cyanosis;muscles-grossly intact NEUROLOGICAL: Cranial nerves grossly intact; no facial asymmetry, power and sensation grossly intact. LYMPHATICS: No lymph nodes palpable in the axilla and neck INVESTIGATIONS, reviewed in the clinical context: January 24: White count 5.1 hemoglobin 10.3 potassium 4.2 creatinine 0.8 ALT 45 ALT 45 amylase 244 lipase 295 January 23, 2025: White count 10.4 hemoglobin 12.3 platelets 279 sodium 127 potassium 4.1 BUN 14 creatinine 0.69 glucose 69 AST 99 ALT 78 alkaline phosphatase 287 amylase 346 lipase 1337 serum alcohol 99 Assessment plan: - Acute alcohol induced pancreatitis.: Improving Patient was on clear liquids. Advance to full liquid low-fat this evening. Cut back Dilaudid 2.5 mg every 4 as needed. IV fluids - Alcohol use disorder. Consult social work. Thiamine. Folic acid. - Acute on chronic gastritis from alcoholism. With GERD Protonix 40 mg twice daily - Chronic nicotine dependence active smoker Nicotine patch - Essential hypertension Toprol-XL. Resume Zestoretic - Depression viibryd - Hypoglycemia with decreased oral intake D5.45 Advance to full liquids low-fat. Cut back Dilaudid. Increase activity. Hopefully discharge tomorrow. Repeat labs Past Medical History Past Medical History: Coronary Artery Disease (CAD), Hyperlipidemia, Hypertension Additional Past Medical History / Comment(s): pancreatitis History of Any Multi-Drug Resistant Organisms: None Reported Past Surgical History: No Surgical Hx Reported Additional Past Surgical History / Comment(s): tracheostomy and peg placed and reversed in 2023 r/t severe pancreatitis Past Anesthesia/Blood Transfusion Reactions: Unable to Obtain Past Psychological History: Anxiety Smoking Status: Current every day smoker Past Alcohol Use History: Abuse, Daily, Heavy Additional Past Alcohol Use History / Comment(s): admitted with intubation x2 for ETOH Past Drug Use History: None Reported
[2025-01-24] MEDS: HYDROmorphone 0.5 MG/0.5 ML SYRINGE IVP PRN (21:48)
[2025-01-25 09:00] LABS: Amylase 145 U/L (23-121); Lipase 248 U/L (14-60)
[2025-01-25] MEDS ORDERED: hydroCHLOROthiazide 25 MG TAB PO SCH (09:00)
[2025-01-25] MEDS: ACETAMINOPHEN TAB 325 MG TAB PO PRN (15:49)
--- NOTE | 2025-01-25 18:49 | P.PN ---
Progress Note - Text Progress Note Date: 01/25/25 Chief Complaint: Abdominal pain Pleasant 49-year-old patient. Presents 4 days of increasing abdominal pain. Nausea vomiting. Had a bowel movement yesterday. Some chills. Patient with a longstanding history of alcoholism. Drinks sometimes sixpack beer. Sometimes 1 to 3 pints of vodka. History of previous pancreatitis. This morning still having significant pain. Getting IV Dilaudid. Was NPO. January 24: Decreased abdominal tenderness. No pain. Present. On clear liquids. Amylase and lipase is coming down. Will change to full liquids this evening. January 25: Patient did have some increased pain last night. Some discomfort this morning. Told the patient to remain on full liquids. Patient has a trip coming on up on to [place] with his mother and daughter. Will discuss this with the patient tomorrow. Decrease IV fluids. Ambulate in hallway. Active Medications Acetaminophen (Acetaminophen Tab 325 Mg Tab) 650 mg PO Q6HR PRN PRN Reason: Fever and/ or Pain Last Admin: 01/25/25 15:49 Dose: 650 mg Diazepam (Diazepam 5 Mg Tab) 5 mg PO Q8H [facility] Last Admin: 01/25/25 17:41 Dose: 5 mg Enoxaparin Sodium (Enoxaparin 40 Mg/0.4 Ml Syringe) 40 mg SQ DAILY [facility] Last Admin: 01/25/25 08:14 Dose: 40 mg Folic Acid (Folic Acid 1 Mg Tab) 1 mg PO DAILY [facility] Last Admin: 01/25/25 08:14 Dose: 1 mg Dextrose/Sodium Chloride (Dextrose 5%-1/2ns Iv Soln) 1,000 mls @ 75 mls/hr IV .[id number] [facility] Last Admin: 01/25/25 11:12 Dose: 130 mls/hr Lisinopril (Lisinopril 20 Mg Tab) 20 mg PO DAILY [facility] Last Admin: 01/25/25 08:14 Dose: 20 mg Lorazepam (Lorazepam 1 Mg Tab) 2 mg PO Q3HR PRN PRN Reason: Ciwa 8 To 9 Lorazepam (Lorazepam 1 Mg Tab) 2 mg PO Q2HR PRN PRN Reason: Ciwa 10 or greater Lorazepam (Lorazepam 1 Mg Tab) 1 mg PO Q4HR PRN PRN Reason: Ciwa 6 To 7 Last Admin: 01/24/25 21:56 Dose: 1 mg Lorazepam (Lorazepam 0.5 Mg Tab) 0.5 mg PO Q4HR PRN PRN Reason: Ciwa 4 To 5 Last Admin: 01/24/25 05:09 Dose: 0.5 mg Lorazepam (Lorazepam 1 Mg/0.5 Ml Vial) 1 mg IV Q2HR PRN PRN Reason: CIWA 8 or 9 Lorazepam (Lorazepam 1 Mg/0.5 Ml Vial) 1 mg IV Q1HR PRN PRN Reason: CIWA 10 to 15 Last Admin: 01/23/25 06:07 Dose: 1 mg Metoprolol Succinate (Metoprolol Succinate (Er) 25 Mg Tab.Er.24h) 25 mg PO D AILY [facility] Last Admin: 01/25/25 08:14 Dose: 25 mg Naloxone HCl (Naloxone 0.4 Mg/Ml 1 Ml Vial) 0.2 mg IV Q2M PRN PRN Reason: Opioid Reversal Nicotine (Nicotine 21mg/24hr Patch) 1 patch TRANSDERM DAILY [facility] Last Admin: 01/25/25 08:14 Dose: 1 patch Non-Formulary Medication (Vilazodone Hcl [Viibryd]) 20 mg PO DAILY [facility] Last Admin: 01/25/25 08:01 Dose: Not Given Ondansetron HCl (Ondansetron 4 Mg/2 Ml Vial) 4 mg IVP Q8HR PRN PRN Reason: Nausea And Vomiting Last Admin: 01/24/25 21:56 Dose: 4 mg Pantoprazole Sodium (Pantoprazole 40 Mg Tablet) 40 mg PO AC-BID [facility] Last Admin: 01/25/25 17:41 Dose: 40 mg Thiamine HCl (Thiamine 100 Mg Tab) 100 mg PO DAILY [facility] Last Admin: 01/25/25 08:14 Dose: 100 mg Social history: Lives with his mother and 12-year-old daughter. 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 Alcohol use disorder Physical examination: VITAL SIGNS: 99.1, 92, 17, 144/95, 100% room air GENERAL: BMI 21.6, resting in bed. Not in distress EYES: Pupils equal. Conjunctiva shawna l. HEENT: External appearance of nose and ears normal, oral cavity grossly normal. NECK: JVD not raised; masses not palpable. HEART: First and second heart sounds are normal; no edema. LUNGS: Respiratory rate normal; decreased breath. ABDOMEN: Soft, decreased epigastric tenderness liver spleen not palpable, no masses palpable. PSYCH: Alert and oriented x3; mood and affect anxious l. MUSCULOSKELETAL:No Clubbing/cyanosis;muscles-grossly intact NEUROLOGICAL: Cranial nerves grossly intact; no facial asymmetry, power and sensation grossly intact. LYMPHATICS: No lymph nodes palpable in the axilla and neck INVESTIGATIONS, reviewed in the clinical context: January 25: Amylase 145 lipase 248 January 24: White count 5.1 hemoglobin 10.3 potassium 4.2 creatinine 0.8 ALT 45 ALT 45 amylase 244 lipase 295 January 23, 2025: White count 10.4 hemoglobin 12.3 platelets 279 sodium 127 potassium 4.1 BUN 14 creatinine 0.69 glucose 69 AST 99 ALT 78 alkaline phosphatase 287 amylase 346 lipase 1337 serum alcohol 99 Assessment plan: - Acute alcohol induced pancreatitis.: Improving Keep on full liquid low-fat this evening. Stop Dilaudid IV fluids cut back - Alcohol use disorder. Consult social work. Thiamine. Folic acid. - Acute on chronic gastritis from alcoholism. With GERD Protonix 40 mg twice daily - Chronic nicotine dependence active smoker Nicotine patch - Essential hypertension Toprol-XL. Zestoretic - Depression viibryd - Hypoglycemia with decreased oral intake: Corrected D5.45 decreased Keep on full liquids low-fat. Stop Dilaudid. Walk in hallway Past Medical History Past Medical History: Coronary Artery Disease (CAD), Hyperlipidemia, Hypertension Additional Past Medical History / Comment(s): pancreatitis History of Any Multi-Drug Resistant Organisms: None Reported Past Surgical History: No Surgical Hx Reported Additional Past Surgical History / Comment(s): tracheostomy and peg placed and reversed in 2023 r/t severe pancreatitis Past Anesthesia/Blood Transfusion Reactions: Unable to Obtain Past Psychological History: Anxiety Smoking Status: Current every day smoker Past Alcohol Use History: Abuse, Daily, Heavy Additional Past Alcohol Use History / Comment(s): admitted with intubation x2 for ETOH Past Drug Use History: None Reported
[2025-01-25] MEDS: Acetaminophen-Codeine 300-30mg TAB PO PRN (21:09)
[2025-01-26 04:03] LABS: ALT 414 U/L (4-49); AST 709 U/L (17-59); African American GFR (CKD) >90 (>60 ml/min/1.73 sqM); Albumin 3.8 g/dL (3.5-5.0); Albumin/Globulin Ratio 1.5; Alkaline Phosphatase 568 U/L (38-126); Amylase 76 U/L (30-110); Anion Gap 8 mmol/L; Blood Urea Nitrogen 2 mg/dL (9-20); Calcium 9.9 mg/dL (8.4-10.2); Carbon Dioxide 30 mmol/L (22-30); Chloride 97 mmol/L (98-107); Globulin 2.5 g/dL; Glucose 93 mg/dL (74-99); Lipase 301 U/L (23-300); Non-African American GFR(CKD) >90 (>60 ml/min/1.73 sqM); Potassium 4.0 mmol/L (3.5-5.1); Sodium 135 mmol/L (137-145); Total Protein 6.3 g/dL (6.3-8.2)
[2025-01-26] MEDS: diazePAM 2 MG TAB PO SCH (15:23)
[2025-01-26] MEDS: DEXTROSE 5%-0.45% NACL 1,000 ML IV SCH (15:26)
--- NOTE | 2025-01-26 15:32 | US ---
EXAMINATION TYPE: US abdomen limited DATE OF EXAM: 01/26/2025 COMPARISON: NONE CLINICAL INDICATION: Male, 49 years old with history of acute Increse LFT; Elevated LFT TECHNIQUE: Grayscale and color Doppler imaging of the right upper quadrant was performed. FINDINGS: EXAM MEASUREMENTS: Liver Length: 18.1 cm Gallbladder Wall: .2 cm CBD: .8 cm Right Kidney: 12 x 5.1 x 4.1 cm DIAL MOUNTER NOTES: Pancreas: Overall, severely limited evaluation of pancreas due to extensive shadowing bowel gas, tobi mmend correlation with recent CT study dated 01/22/2025. Questionable hypoattenuating region in the pr oximal pancreas not well evaluated. Liver: wnl Gallbladder: Multiple folds seen no stones visualized Evidence for sonographic Vance's sign: no CBD: Dilated Right Kidney: No hydronephrosis or masses seen IMPRESSION: Indeterminate heterogeneously hypoechoic region in the pancreas, incompletely evaluated given extensi ve shadowing bowel gas artifact. Recommend correlation with recent outside CT abdomen/pelvis study and further evaluation with dedicated outpatient MRI pancreas protocol as clinically warrante d. [facility], , 01/26/2025 3:30 PM
[2025-01-26 16:19] LABS: Basophils # (A) 0.04 10*3/uL (0.00-0.10); Basophils % (A) 0.8 %; Eosinophils # (A) 0.08 10*3/uL (0.04-0.35); Eosinophils % (A) 1.5 %; HCT 31.4 % (39.6-50.0); HGB 10.6 g/dL (13.0-17.0); Lymphocytes # (A) 0.53 10*3/uL (0.90-5.00); Lymphocytes % (A) 10.3 %; MCH 31.3 pg (27.0-32.0); MCHC 33.8 g/dL (32.0-37.0); MCV 92.6 fL (80.0-97.0); Monocytes # (A) 0.45 10*3/uL (0.20-1.00); Monocytes % (A) 8.7 %; Neutrophils # (A) 4.05 10*3/uL (1.80-7.70); Neutrophils % (A) 78.3 %; Platelet Count 171 10*3/uL (140-440); RBC 3.39 10*6/uL (4.40-5.60); RDW 13.7 % (11.5-14.5); WBC 5.17 10*3/uL (4.50-10.00)
[2025-01-26 16:35] LABS: ALT 342 U/L (4-49); AST 340 U/L (17-59); African American GFR (CKD) >90 (>60 ml/min/1.73 sqM); Albumin 4.0 g/dL (3.5-5.0); Albumin/Globulin Ratio 1.5; Alkaline Phosphatase 556 U/L (38-126); Amylase 64 U/L (30-110); Anion Gap 11 mmol/L; Blood Urea Nitrogen 3 mg/dL (9-20); Calcium 9.7 mg/dL (8.4-10.2); Carbon Dioxide 25 mmol/L (22-30); Chloride 98 mmol/L (98-107); Globulin 2.6 g/dL; Glucose 114 mg/dL (74-99); Lipase 335 U/L (23-300); Non-African American GFR(CKD) >90 (>60 ml/min/1.73 sqM); Potassium 4.1 mmol/L (3.5-5.1); Sodium 134 mmol/L (137-145); Total Protein 6.6 g/dL (6.3-8.2)
--- NOTE | 2025-01-26 20:07 | P.PN ---
Progress Note - Text Progress Note Date: 01/26/25 Chief Complaint: Abdominal pain Pleasant 49-year-old patient. Presents 4 days of increasing abdominal pain. Nausea vomiting. Had a bowel movement yesterday. Some chills. Patient with a longstanding history of alcoholism. Drinks sometimes sixpack beer. Sometimes 1 to 3 pints of vodka. History of previous pancreatitis. This morning still having significant pain. Getting IV Dilaudid. Was NPO. January 24: Decreased abdominal tenderness. No pain. Present. On clear liquids. Amylase and lipase is coming down. Will change to full liquids this evening. January 25: Patient did have some increased pain last night. Some discomfort this morning. Told the patient to remain on full liquids. Patient has a trip coming on up on to [place] with his mother and daughter. Will discuss this with the patient tomorrow. Decrease IV fluids. Ambulate in hallway. January 26: Epigastric pain is present but not resolved. LFTs are gone up. No right upper quadrant pain. No nausea vomiting. Tylenol and Tylenol 3 was discontinued. Patient somewhat tearful because he is supposed to travel to [place] with his mother and daughter this coming Monday. Patient was made n.p.o. last night. Will try ice chips today. Spoke to the patient at length. K-pad for pain. Valium decreased to 2 mg every 8. Will DC tomorrow morning. Some decrease in LFTs today afternoon compared to morning labs. Will order CT scan of the abdomen with contrast. Active Medications Clonidine (Clonidine Hcl 0.1 Mg Tab) 0.1 mg PO BID [facility] Last Admin: 01/26/25 17:16 Dose: 0.1 mg Diazepam (Diazepam 2 Mg Tab) 2 mg PO Q8H [facility] Stop: 01/27/25 06:01 Last Admin: 01/26/25 15:23 Dose: 2 mg Enoxaparin Sodium (Enoxaparin 40 Mg/0.4 Ml Syringe) 40 mg SQ DAILY [facility] Last Admin: 01/26/25 08:20 Dose: 40 mg Folic Acid (Folic Acid 1 Mg Tab) 1 mg PO DAILY [facility] Last Admin: 01/26/25 08:18 Dose: 1 mg Dextrose/Sodium Chloride (Dextrose 5%-1/2ns Iv Soln) 1,000 mls @ 125 mls/hr IV .Q8H [facility] Last Admin: 01/26/25 15:26 Dose: 125 mls/hr Iopamidol (Iopamidol Contrast (Oral Use) Vial) 30 ml PO ONCE PRN PRN Reason: CT Scan Stop: 01/27/25 20:02 Lisinopril (Lisinopril 20 Mg Tab) 20 mg PO DAILY [facility] Last Admin: 01/26/25 08:19 Dose: 20 mg Lorazepam (Lorazepam 1 Mg Tab) 2 mg PO Q3HR PRN PRN Reason: Ciwa 8 To 9 Lorazepam (Lorazepam 1 Mg Tab) 2 mg PO Q2HR PRN PRN Reason: Ciwa 10 or greater Lorazepam (Lorazepam 1 Mg Tab) 1 mg PO Q4HR PRN PRN Reason: Ciwa 6 To 7 Last Admin: 01/24/25 21:56 Dose: 1 mg Lorazepam (Lorazepam 0.5 Mg Tab) 0.5 mg PO Q4HR PRN PRN Reason: Ciwa 4 To 5 Last Admin: 01/24/25 05:09 Dose: 0.5 mg Lorazepam (Lorazepam 1 Mg/0.5 Ml Vial) 1 mg IV Q2HR PRN PRN Reason: CIWA 8 or 9 Lorazepam (Lorazepam 1 Mg/0.5 Ml Vial) 1 mg IV Q1HR PRN PRN Reason: CIWA 10 to 15 Last Admin: 01/23/25 06:07 Dose: 1 mg Metoprolol Succinate (Metoprolol Succinate (Er) 25 Mg Tab.Er.24h) 25 mg PO DAILY [facility] Last Admin: 01/26/25 08:19 Dose: 25 mg Naloxone HCl (Naloxone 0.4 Mg/Ml 1 Ml Vial) 0.2 mg IV Q2M PRN PRN Reason: Opioid Reversal Nicotine (Nicotine 21mg/24hr Patch) 1 patch TRANSDERM DAILY [facility] Last Admin: 01/26/25 08:19 Dose: 1 patch Non-Formulary Medication (Vilazodone Hcl [Viibryd]) 20 mg PO DAILY [facility] Last Admin: 01/26/25 08:21 Dose: Not Given Ondansetron HCl (Ondansetron 4 Mg/2 Ml Vial) 4 mg IVP Q8HR PRN PRN Reason: Nausea And Vomiting Last Admin: 01/24/25 21:56 Dose: 4 mg Pantoprazole Sodium (Pantoprazole 40 Mg Tablet) 40 mg PO AC-BID [facility] Last Admin: 01/26/25 17:16 Dose: 40 mg Thiamine HCl (Thiamine 100 Mg Tab) 100 mg PO DAILY [facility] Last Admin: 01/26/25 08:19 Dose: 100 mg Social history: Lives with his mother and 12-year-old daughter. 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 Alcohol use disorder Physical examination: VITAL SIGNS: 98.2, 85, 18, 144/97, 99% room air GENERAL: BMI 21.6, resting in bed. Tearful EYES: Pupils equal. Conjunctiva shawna l. HEENT: External appearance of nose and ears normal, oral cavity grossly normal. NECK: JVD not raised; masses not palpable. HEART: First and second heart sounds are normal; no edema. LUNGS: Respiratory rate normal; decreased breath. ABDOMEN: Soft, decreased but present epigastric tenderness liver spleen not palpable, no masses palpable. PSYCH: Alert and oriented x3; mood and affect anxious MUSCULOSKELETAL:No Clubbing/cyanosis;muscles-grossly intact INVESTIGATIONS, reviewed in the clinical context: February 03: Potassium 4.1 AST 340 ALT 342 earlier today AST 709 ALT 414 lipase 335 January 25: Amylase 145 lipase 248 January 24: White count 5.1 hemoglobin 10.3 potassium 4.2 creatinine 0.8 ALT 45 ALT 45 amylase 244 lipase 295 January 23, 2025: White count 10.4 hemoglobin 12.3 platelets 279 sodium 127 potassium 4.1 BUN 14 creatinine 0.69 glucose 69 AST 99 ALT 78 alkaline phosphatase 287 amylase 346 lipase 1337 serum alcohol 99 Assessment plan: - Acute alcohol induced pancreatitis.: Slow improvement Keep on full liquid low-fat this evening. Stop Dilaudid IV fluids cut back Because of residual pain present we will get a CT scan of the abdomen with contrast - Alcohol use disorder. Valium dose is being scaled back. Stop tomorrow morning Consult social work. Thiamine. Folic acid. - Acute on chronic gastritis from alcoholism. With GERD Protonix 40 mg twice daily - Chronic nicotine dependence active smoker Nicotine patch - Acute hepatitis likely alcoholic Stop Tylenol. Repeat labs - Essential hypertension Toprol-XL. Zestoretic - Depression viibryd-hospital does not carry the same - Hypoglycemia with decreased oral intake: Corrected D5.45 decreased Patient was made n.p.o. last night. Ice chips started this afternoon. Will try clear liquids in the morning. Repeat labs in the morning. Catapres was added for blood pressure. Past Medical History Past Medical History: Coronary Artery Disease (CAD), Hyperlipidemia, Hypertension Additional Past Medical History / Comment(s): pancreatitis History of Any Multi-Drug Resistant Organisms: None Reported Past Surgical History: No Surgical Hx Reported Additional Past Surgical History / Comment(s): tracheostomy and peg placed and reversed in 2023 r/t severe pancreatitis Past Anesthesia/Blood Transfusion Reactions: Unable to Obtain Past Psychological History: Anxiety Smoking Status: Current every day smoker Past Alcohol Use History: Abuse, Daily, Heavy Additional Past Alcohol Use History / Comment(s): admitted with intubation x2 for ETOH Past Drug Use History: None Reported
[2025-01-26] MEDS: IOPAMIDOL CONTRAST (ORAL USE) VIAL PO PRN (20:15)
--- NOTE | 2025-01-26 21:12 | CT ---
EXAMINATION TYPE: CT abdomen w con DATE OF EXAM: 01/26/2025 8:59 PM COMPARISON: CT abdomen/pelvis 10/06/2024. CLINICAL INDICATION: Male, 49 years old with history of Acute pancreatitis: Slow response; RUQ pain TECHNIQUE: Axial CT abdomen w con;Sagittal and coronal reformats were created on a separate workstat ion. Contrast used:100 ml mL of Isovue 300 with IV Contrast, (none if empty) Oral contrast used: with Oral Contrast (none if empty) CT DLP: 349 mGycm, Automated exposure control for dose reduction was used. FINDINGS: LOWER CHEST: Unremarkable ABDOMEN LIVER: Diffusely hypoattenuating parenchyma. GALLBLADDER AND BILE DUCTS: Mildly distended gallbladder lumen without CT evidence of acute cholecyst itis or cholelithiasis. PANCREAS: Enlarging indeterminate hypodense mass in the region of the pancreatic head measuring 2.5 x 1.7 cm. No upstream pancreatic ductal dilatation. There is mild peripancreatic fat stranding/acute i nflammatory changes. SPLEEN: Unremarkable. ADRENAL GLANDS: Unremarkable. KIDNEYS AND URETERS: No evidence of hydronephrosis or renal calculus. The ureters are unremarkable. ABDOMEN & PELVIS STOMACH AND BOWEL: Stomach and duodenum are unremarkable. No evidence of bowel obstruction. PERITONEUM/RETROPERITONEUM: No evidence of pneumoperitoneum or free fluid. VASCULATURE: No evidence of aortic aneurysm. MUSCULOSKELETAL: No acute osseous abnormalities LYMPH NODES: No gross evidence for lymphadenopathy. SOFT TISSUE/ABDOMINAL WALL: Unremarkable IMPRESSION: 1. Mild peripancreatic fat stranding/acute inflammatory changes suggestive of acute interstitial greyson matous pancreatitis. No drainable fluid collection/abscess or evidence of pancreatic necrosis at this time. 2. Indeterminate enlarging hypodense lesion in the pancreatic head, now measuring 2.5 x 1.7 cm. No u pstream pancreatic ductal dilatation. Differential diagnostic considerations would favor intrapancrea tic enlarging pseudocyst or intraductal papillary mucinous neoplasm. However, pancreatic adenocarcino ma would be difficult to exclude and further evaluation with pancreas MRI would be recommended. [facility], , 01/26/2025 9:10 PM
[2025-01-26 22:07] LABS: Amylase 81 U/L (30-110); Lipase 460 U/L (23-300)
[2025-01-27 06:10] LABS: ALT 283 U/L (4-49); African American GFR (CKD) >90 (>60 ml/min/1.73 sqM); Albumin 3.7 g/dL (3.5-5.0); Albumin/Globulin Ratio 1.4; Anion Gap 12 mmol/L; Blood Urea Nitrogen 5 mg/dL (9-20); Calcium 9.7 mg/dL (8.4-10.2); Carbon Dioxide 24 mmol/L (22-30); Chloride 99 mmol/L (98-107); Globulin 2.7 g/dL; Glucose 125 mg/dL (74-99); Non-African American GFR(CKD) >90 (>60 ml/min/1.73 sqM); Sodium 135 mmol/L (137-145); Total Protein 6.4 g/dL (6.3-8.2)
[2025-01-27 06:48] LABS: AST 245 U/L (17-59); Alkaline Phosphatase 481 U/L (38-126); Potassium 4.6 mmol/L (3.5-5.1)
[2025-01-27 07:31] LABS: Basophils # (A) 0.03 10*3/uL (0.00-0.10); Basophils % (A) 0.5 %; Eosinophils # (A) 0.16 10*3/uL (0.04-0.35); Eosinophils % (A) 2.7 %; HCT 30.3 % (39.6-50.0); HGB 10.3 g/dL (13.0-17.0); Lymphocytes # (A) 0.99 10*3/uL (0.90-5.00); Lymphocytes % (A) 16.9 %; MCH 31.1 pg (27.0-32.0); MCHC 34.0 g/dL (32.0-37.0); MCV 91.5 fL (80.0-97.0); Monocytes # (A) 0.70 10*3/uL (0.20-1.00); Monocytes % (A) 11.9 %; Neutrophils # (A) 3.98 10*3/uL (1.80-7.70); Neutrophils % (A) 67.8 %; Platelet Count 171 10*3/uL (140-440); RBC 3.31 10*6/uL (4.40-5.60); RDW 13.8 % (11.5-14.5); WBC 5.87 10*3/uL (4.50-10.00)
[2025-01-27] MEDS ORDERED: TEMAZEPAM 15 MG CAP PO PRN (20:59)
[2025-01-27] MEDS: TEMAZEPAM 15 MG CAP PO ONE (21:06)
[2025-01-28 08:05] LABS: ALT 247 U/L (4-49); AST 230 U/L (17-59); African American GFR (CKD) >90 (>60 ml/min/1.73 sqM); Albumin 3.9 g/dL (3.5-5.0); Albumin/Globulin Ratio 1.6; Alkaline Phosphatase 438 U/L (38-126); Amylase 81 U/L (30-110); Anion Gap 12 mmol/L; Blood Urea Nitrogen 4 mg/dL (9-20); Calcium 9.6 mg/dL (8.4-10.2); Carbon Dioxide 20 mmol/L (22-30); Chloride 107 mmol/L (98-107); Globulin 2.5 g/dL; Glucose 122 mg/dL (74-99); Lipase 469 U/L (23-300); Non-African American GFR(CKD) >90 (>60 ml/min/1.73 sqM); Potassium 4.9 mmol/L (3.5-5.1); Sodium 139 mmol/L (137-145); Total Protein 6.4 g/dL (6.3-8.2)
--- NOTE | 2025-01-28 11:13 | P.PN ---
Subjective Progress Note Date: 01/27/25 Chief Complaint: Abdominal pain Pleasant 49-year-old patient. Presents 4 days of increasing abdominal pain. Nausea vomiting. Had a bowel movement yesterday. Some chills. Patient with a longstanding history of alcoholism. Drinks sometimes sixpack beer. Sometimes 1 to 3 pints of vodka. History of previous pancreatitis. This morning still having significant pain. Getting IV Dilaudid. Was NPO. January 24: Decreased abdominal tenderness. No pain. Present. On clear liquids. Amylase and lipase is coming down. Will change to full liquids this evening. January 25: Patient did have some increased pain last night. Some discomfort this morning. Told the patient to remain on full liquids. Patient has a trip coming on up on to [place] with his mother and daughter. Will discuss this with the patient tomorrow. Decrease IV fluids. Ambulate in hallway. January 26: Epigastric pain is present but not resolved. LFTs are gone up. No right upper quadrant pain. No nausea vomiting. Tylenol and Tylenol 3 was discontinued. Patient somewhat tearful because he is supposed to travel to [place] with his mother and daughter this coming Monday. Patient was made n.p. o. last night. Will try ice chips today. Spoke to the patient at length. K- pad for pain. Valium decreased to 2 mg every 8. Will DC tomorrow morning. Some decrease in LFTs today afternoon compared to morning labs. Will order CT scan of the abdomen with contrast. 01/27/2025 Patient is seen in follow-up today reporting less abdominal pain although continues with some tenderness. Patient maintained on IV hydration and has been on clear liquids tolerating asking for an advancing diet. Discussed with the patient at length about if pain increases after eating or increase in diet then recommend n.p.o. or continuing with just clear liquids and spare sips. Patient reports would like to improve and get home before as he has a trip to [place] with his family. Patient is afebrile with no reports of chest pain or shortness of breath. Will follow-up on repeat amylase/lipase and BMP. Encouraged increase activity as tolerated. Discussed complete alcohol cessation. Social history: Lives with his mother and 12-year-old daughter. 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 Alcohol use disorder Physical examination: GENERAL: BMI 21.6, resting in bed. Alert and oriented x 3, does not appear to be withdrawing from alcohol, well-developed, thin built EYES: Pupils equal. Conjunctiva normal. HEENT: External appearance of nose and ears normal, oral cavity grossly normal. NECK: JVD not raised; masses not palpable. HEART: First and second heart sounds are normal; no edema. LUNGS: Respiratory rate normal; decreased breath. ABDOMEN: Soft, decreased but present epigastric tenderness liver spleen not palpable, no masses palpable. PSYCH: Alert and oriented x3; mood and affect anxious MUSCULOSKELETAL:No Clubbing/cyanosis;muscles-grossly intact Assessment plan: - Acute alcohol induced pancreatitis.: Slow improvement Keep on full liquid low-fat this evening. Stop Dilaudid IV fluids cut back Repeat CT scan of the abdomen with contrast shows mild peripancreatic fat stranding acute inflammatory changes suggestive of acute interstitial edematous pancreatitis with no drainable fluid collection or evidence of abscess noted, indeterminant enlarging hypodense lesion in the pancreatic head measuring 2.5 x 1.5 cm with no upstream pancreatic ductal dilatation recommending pancreatic MRI which can be done outpatient. Continue complete alcohol cessation and this was discussed with patient - Alcohol use disorder. - Acute on chronic gastritis from alcoholism. With GERD Protonix 40 mg twice daily - Chronic nicotine dependence active smoker Nicotine patch - Acute hepatitis likely alcoholic Stop Tylenol. Repeat labs, slowly trending down - Essential hypertension Toprol-XL. Zestoretic - Depression [facility]-hospital does not carry the same - Hypoglycemia with decreased oral intake: Corrected D5.45 decreased Plan: Patient will continue on IV hydration and was maintained on clear liquids reporting improvements in abdominal pain and would like to advance diet. Will try full liquids and if tolerating slowly advance over the next day to low fiber. Encouraged increase activity as tolerated Continue CIWA as needed although not actively withdrawing and will monitor closely Follow-up on repeat labs. Patient would like to go home before as he has a trip to [place]. Discussed at length about complete alcohol cessation and patient verbalized understanding. Will monitor overnight and monitor for clinical improvements in diet tolerance and abdominal pain. Possible discharge planning in the next 24 hours The impression and plan of care has been dictated by Francia Walters, Nurse Practitioner as directed. Dr. Vicky MD I have performed a history and examination and MDM of this patient, discussed the same with the dictator, and agree with the dictator's assessment and plan as written ,documented as a scribe. Based on total visit time, I have performed more than 50% of the visit. Objective - Vital Signs Vital signs: Vital Signs Temp 97.7 F 01/27/25 07:00 Pulse 73 01/27/25 07:00 Resp 20 01/27/25 07:00 BP 138/99 01/27/25 07:00 Pulse Ox 99 01/27/25 07:00 FiO2 Intake & Output 01/26/25 01/27/25 01/27/25 18:59 06:59 18:59 Other: Voiding Method Toilet Toilet Toilet Urinal Urinal Urinal # Voids 1 2 - Labs CBC & Chem 7: 01/27/25 06:58 01/28/25 06:24 Labs: Abnormal Lab Results - Last 24 Hours (Table) 01/26/25 01/26/25 01/26/25 Range/Units 16:07 16:07 21:18 RBC 3.39 L (4.40-5.60) 10*6/uL Hgb 10.6 L (13.0-17.0) g/dL Hct 31.4 L (39.6-50.0) % Lymphocytes # 0.53 L (0.90-5.00) 10*3/uL Sodium 134 L (137-145) mmol/L BUN 3 L (9-20) mg/dL Creatinine (0.66-1.25) mg/dL Glucose 114 H (74-99) mg/dL Total Bilirubin 2.0 H (0.2-1.3) mg/dL AST 340 H (17-59) U/L ALT 342 H (4-49) U/L Alkaline Phosphatase 556 H (38-126) U/L Lipase 335 H 460 H (23-300) U/L 01/27/25 01/27/25 Range/Units 05:15 06:58 RBC 3.31 L (4.40-5.60) 10*6/uL Hgb 10.3 L (13.0-17.0) g/dL Hct 30.3 L (39.6-50.0) % Lymphocytes # (0.90-5.00) 10*3/uL Sodium 135 L (137-145) mmol/L BUN 5 L (9-20) mg/dL Creatinine 0.64 L (0.66-1.25) mg/dL Glucose 125 H (74-99) mg/dL Total Bilirubin 4.7 H (0.2-1.3) mg/dL AST 245 H (17-59) U/L ALT 283 H (4-49) U/L Alkaline Phosphatase 481 H (38-126) U/L Lipase (23-300) U/L
[2025-01-28 15:41] VITALS: RESP 17; TEMP 97.5
[2025-01-28 17:24] VITALS: BP 200/118; PULSE 72
[2025-01-28] MEDS: hydrALAZINE HCL 20 MG/ML 1 ML VIAL IVP STA (17:24)
== END 2025-01-28 17:56 | disposition home or self-care (01) | DRG 282 ==
LOC: EC 03:28 → INTOOBSV 04:26 → 6NMEDSUR 04:26 → OBSVTOIN 04:27 → 6NMEDSUR 07:03
PROVIDERS: ADMIT Hospitalist; ATTEND Hospitalist
DX: K85.20 Alcohol induced acute pancreatitis without necrosis or infection (principal); F10.120 Alcohol abuse with intoxication, uncomplicated; I10 Essential (primary) hypertension; F32.A Depression, unspecified; K70.10 Alcoholic hepatitis without ascites; K29.20 Alcoholic gastritis without bleeding; E87.20 Acidosis, unspecified; F17.210 Nicotine dependence, cigarettes, uncomplicated; E16.2 Hypoglycemia, unspecified; Y90.4 Blood alcohol level of 80-99 mg/100 ml; Z79.899 Other long term (current) drug therapy
CPT/HCPCS: 36415; 74160; 76705; 80053; 80320; 82150; 83605; 83690; 83735; 84100; 85025; 85027; 85610; 85730; 96361; 96374; 96375; 99285